=== PATIENT | male | born 1955 | race Caucasian/White ===

== ENCOUNTER 2017-04-23 10:50 | Emergency (ER) | payer OTHER ==
[~2017-04-23] VITALS: Ht 182.9 cm; Wt 77.0 kg
[~2017-04-23 10:50] MED LIST: AUGM875T PO; SPIRCAP INH
[2017-04-23 11:06] VITALS: BP 110/56; PULSE 112; RESP 19; TEMP 97.6; O2SAT 98
[2017-04-23] MEDS ORDERED: SODIUM CHLOR 0.9% 1000 ML INJ 1,000 ML IV SCH ×2 (11:08)
[2017-04-23] MEDS ORDERED: SODIUM CHLORIDE 0.9% FLUSH 5 ML FLUSH IV FLUSH PRN (11:15)
[2017-04-23 11:16] VITALS: BP 110/57; PULSE 112; RESP 19; TEMP 97.6; O2SAT 99
--- NOTE | 2017-04-23 11:17 | PD ---
HPI . Altered mental status Chief Complaint: Altered Mental Status Time Seen by Provider: 11:08 Travel History International Travel<30 days: No Contact w/Intl Traveler<30days: No History of Present Illness HPI This patient is brought to us by [facility] with the chief complaint of altered mental status. Onset was this morning. EMS reports that the patient lives with his mother and that they were called to the home by the mother for altered mental status. The patient's complaints are poor appetite, weakness and feeling lightheaded. He denies any modifying factors. The patient admits to drinking vodka daily. He states that he has had previous alcohol withdrawal seizures. He reports no known history of cirrhosis of liver or esophageal varices. EMS reports that he is currently being evaluated by a neurologist for an unknown neurological symptom. He was reportedly at the neurologist's office this morning and was hypotensive in the 90s. EMS reports hypotension en route to the hospital as well. Mother reports that he has been unable to walk. This has been an ongoing, progressively worsening problem. She states that he needs a wheelchair. [facility] Past Medical History COPD: Yes Seizures: Yes (ETOH Withdraw) Past Surgical History Tonsillectomy: Yes Social History Alcohol Use: Yes (1/5th vodka daily ) Tobacco Use: Yes (1/2 pack daily) Substance Use: No Allergies-Medications (Allergen,Severity, Reaction): Coded Allergies: No Known Allergies (Verified Allergy, Unknown, 04/23/17) Uncoded Allergies: STEROIDS (Allergy, Unknown, 07/13/14) Reported Meds & Prescriptions Reported Meds & Active Scripts Active Lactulose Liq (Lactulose) 10 Gm/15 Ml Soln 30 Ml PO BID Reported Spiriva Handihaler (Tiotropium Inh) 18 Mcg Cap 18 Mcg INH DAILY 1 capsule = 18 mcg Review of Systems Except as stated in HPI: all other systems reviewed are Neg General / Constitutional: No: Fever, Chills HENT: Positive: Lightheadedness Gastrointestinal: Positive: Loss of Appetite Neurologic: Positive: Weakness Psychiatric: Positive: Substance Abuse Physical Exam Narrative GENERAL: Patient is awake and alert and does not appear to be in any distress. Disheveled appearing. He looks older than his stated age of 61. SKIN: warm/dry. No jaundice. No rash. HEAD: Normocephalic. Atraumatic. EYES: Pupils equal and round. No scleral icterus. No injection or drainage. ENT: No nasal bleeding or discharge. Mucous membranes pink and moist. NECK: Trachea midline. Full range of motion without pain.. CARDIOVASCULAR: Sinus tachycardia. No murmurs. RESPIRATORY: No accessory muscle use. Clear to auscultation. Breath sounds equal bilaterally. GASTROINTESTINAL: Abdomen soft. Nontender. Bowel sounds present. Nondistended. No hepatomegaly palpated. No caput medusa. MUSCULOSKELETAL: No obvious deformities. The patient is not ambulatory. We have attempted to walk in without success. NEUROLOGICAL: Awake and alert. No obvious cranial nerve deficits. Motor grossly within normal limits. Normal speech. PSYCHIATRIC: Appropriate mood and affect; insight and judgment normal. Data Data Last Documented VS Vital Signs Date Time Temp Pulse Resp B/P (MAP) Pulse Ox O2 Delivery O2 Flow Rate FiO2 04/23/17 11:16 97.6 112 19 110/57 (74) 99 Room Air Orders Orders Electrocardiogram (04/23/17 11:08) Ammonia (04/23/17 11:08) Complete Blood Count With Diff (04/23/17 11:08) Comprehensive Metabolic Panel (04/23/17 11:08) Creatine Kinase (Cpk) (04/23/17 11:08) Prothrombin Time / Inr (Pt) (04/23/17 11:08) Act Partial Throm Time (Ptt) (04/23/17 11:08) Urinalysis - C+S If Indicated (04/23/17 11:08) Ct Brain W/O Iv Contrast(Rout) (04/23/17 11:08) Blood Glucose (04/23/17 11:08) Ecg Monitoring (04/23/17 11:08) Iv Access Insert/Monitor (04/23/17 11:08) Cath For Specimen (04/23/17 11:08) Oximetry (04/23/17 11:08) Sodium Chloride 0.9% Flush (Ns Flush) (04/23/17 11:15) Sodium Chlor 0.9% 1000 Ml Inj (Ns 1000 M (04/23/17 11:08) Sodium Chlor 0.9% 1000 Ml Inj (Ns 1000 M (04/23/17 11:08) Drug Screen, Random Urine (04/23/17 11:08) Alcohol (Ethanol) (04/23/17 11:08) Urine Culture (04/23/17 11:40) Labs Laboratory Tests Test 04/23/17 11:40 White Blood Count 4.6 TH/MM3 Red Blood Count 3.25 MIL/MM3 Hemoglobin 12.8 GM/DL Hematocrit 38.3 % Mean Corpuscular Volume 118.1 FL Mean Corpuscular Hemoglobin 39.5 PG Mean Corpuscular Hemoglobin Concent 33.5 % Red Cell Distribution Width 21.9 % Platelet Count 69 TH/MM3 Mean Platelet Volume 10.8 FL Neutrophils (%) (Auto) 82.2 % Lymphocytes (%) (Auto) 10.1 % Monocytes (%) (Auto) 5.8 % Eosinophils (%) (Auto) 1.3 % Basophils (%) (Auto) 0.6 % Neutrophils # (Auto) 3.8 TH/MM3 Lymphocytes # (Auto) 0.5 TH/MM3 Monocytes # (Auto) 0.3 TH/MM3 Eosinophils # (Auto) 0.1 TH/MM3 Basophils # (Auto) 0.0 TH/MM3 CBC Comment AUTO DIFF Differential Comment AUTO DIFF CONFIRMED Toxic Granulation 1+ Platelet Estimate LOW Platelet Morphology Comment ENLARGED Ovalocytes 1+ Prothrombin Time 12.5 SEC Prothromb Time International Ratio 1.1 RATIO Activated Partial Thromboplast Time 26.4 SEC Urine Color YURI Urine Turbidity HAZY Urine pH 6.0 Urine Specific [place] 1.027 Urine Protein 30 mg/dL Urine Glucose (UA) NEG mg/dL Urine Ketones 40 mg/dL Urine Occult Blood NEG Urine Nitrite NEG Urine Bilirubin NEG Urine Urobilinogen GREATER THAN 12.0 MG/DL Urine Leukocyte Esterase NEG Urine RBC LESS THAN 1 /hpf Urine WBC 3 /hpf Urine Bacteria OCC /hpf Urine Hyaline Casts 3 /lpf Urine Mucus FEW /lpf Microscopic Urinalysis Comment CATH-CULTURE IND Blood Urea Nitrogen 34 MG/DL Creatinine 1.27 MG/DL Random Glucose 129 MG/DL Total Protein 6.6 GM/DL Albumin 2.8 GM/DL Calcium Level 9.6 MG/DL Alkaline Phosphatase 108 U/L Aspartate Amino Transf (AST/SGOT) 55 U/L Alanine Aminotransferase (ALT/SGPT) 24 U/L Total Bilirubin 1.4 MG/DL Sodium Level 134 MEQ/L Potassium Level 3.0 MEQ/L Chloride Level 97 MEQ/L Carbon Dioxide Level 23.3 MEQ/L Anion Gap 14 MEQ/L Estimat Glomerular Filtration Rate 58 ML/MIN Ammonia 42 MCMOL/L Total Creatine Kinase 11 U/L Ethyl Alcohol Level LESS THAN 3 MG/DL MDM Medical Decision Making Medical Screen Exam Complete: Yes Emergency Medical Condition: Yes Medical Record Reviewed: Yes (this patient was seen here in July with virtually the same symptoms. His symptoms were attributed to chronic alcohol abuse.) Interpretation(s) EKG shows a sinus tachycardia at 117. He has some diffuse ST segment depression which is <1 mm and which is unchanged from previous. Differential Diagnosis Differential diagnosis of altered mental status includes but is not limited to infection, electrolyte abnormality, neurological event, intoxication Narrative Course This patient presents to us from home with the chief complaint of altered mental status. He is an admitted alcoholic. CT of his head is pending to rule out SDH. Blood work is pending to rule out anemia, hyponatremia, hepatic encephalopathy, transaminitis. CBC & BMP Diagram 04/23/17 11:40 Total Protein 6.6, Albumin 2.8 L, Calcium Level 9.6, Alkaline Phosphatase 108, Aspartate Amino Transf (AST/SGOT) 55 H, Alanine Aminotransferase (ALT/SGPT) 24, Total Bilirubin 1.4 H Coags are negative. Urine is not infected. Ammonia is 42. Alcohol level is negative. Last Impressions Head CT 04/23/17 1108 Signed Impressions: Service Date/Time: Sunday, April 23, 2017 11:47 - CONCLUSION: Negative for acute process. Patricio Kumar MD FACR This patient's heart rate and blood pressure have normalized. I plan to discharge him once fluids are completed. Diagnosis Primary Impression: Chronic alcoholism Additional Impressions: Hepatic encephalopathy Weakness Patient Instructions: General Instructions, Hepatic Encephalopathy (DC) Additional Instructions: Lots of nonalcoholic fluids. Lactulose as directed. Follow-up with your doctor next week for recheck. Med/Other Pt SpecificInfo: Prescription(s) given Scripts Lactulose Liq (Lactulose Liq) 10 Gm/15 Ml Soln 30 ML PO BID, #1800 ML 0 Refills Prov: Marlene Foley MD 04/23/17 Disposition: 01 DISCHARGE HOME Condition: Stable Marlene Foley MD Apr 23, 2017 11:16
[2017-04-23 12:01] LABS: AUTOMATED NEUTROPHIL # 3.8 TH/MM3 (1.8-7.7); BASOPHIL % 0.6 % (0.0-2.0); EOSINOPHIL # 0.1 TH/MM3 (0-0.4); EOSINOPHIL % 1.3 % (0.0-4.0); HEMATOCRIT 38.3 % (39.0-51.0); LYMPH % 10.1 % (9.0-44.0); LYMPHOCYTE # 0.5 TH/MM3 (1.0-4.8); MEAN CELL VOLUME 118.1 FL (80.0-100.0); MEAN CORPUSCULAR HEMOGLOBIN 39.5 PG (27.0-34.0); MEAN CORPUSCULAR HGB CONC 33.5 % (32.0-36.0); MONO % 5.8 % (0.0-8.0); NEUT % 82.2 % (16.0-70.0); PLATELET COUNT 69 TH/MM3 (150-450); RED BLOOD COUNT 3.25 MIL/MM3 (4.50-5.90); RED CELL DISTRIBUTION WIDTH 21.9 % (11.6-17.2); WHITE BLOOD COUNT 4.6 TH/MM3 (4.0-11.0)
--- NOTE | 2017-04-23 12:03 | RADRPT ---
EXAM DATE/TIME: 04/23/2017 11:47 [facility] COMPARISON: CT BRAIN W/O CONTRAST, July 19, 2016, 13:33. INDICATIONS : Altered mental status today. RADIATION DOSE: 35.17 CTDIvol (mGy) MEDICAL HISTORY : Seizures. Chronic obstructive pulmonary disease. SURGICAL HISTORY : None. ENCOUNTER: Initial ACUITY: 1 day PAIN SCALE: Non-responsive LOCATION: Bilateral head TECHNIQUE: Multiple contiguous axial images were obtained of the head. Using automated exposure control and adj ustment of the mA and/or kV according to patient size, radiation dose was kept as low as reasonably a chievable to obtain optimal diagnostic quality images. DICOM format image data is available electro nically for review and comparison. FINDINGS: CEREBRUM: The ventricles are normal for age. No evidence of midline shift, mass lesion, hemorrhage or acute in farction. No extra-axial fluid collections are seen. POSTERIOR FOSSA: The cerebellum and brainstem are intact. The 4th ventricle is midline. The cerebellopontine angle i s unremarkable. EXTRACRANIAL: The visualized portion of the orbits is intact. SKULL: The calvaria is intact. No evidence of skull fracture. CONCLUSION: Negative for acute process. Patricio Kumar MD FACR on April 23, 2017 at 12:00 Board Certified Radiologist. This report was verified electronically.
[2017-04-23 12:05] LABS: HEMO FLAGS AUTO DIFF
[2017-04-23 12:07] LABS: BACTERIA, URINE OCC /hpf; BLOOD, URINE NEG (NEG); GLUCOSE,URINE NEG (NEG); HYALINE CAST, URINE 3 /lpf (RARE); KETONE, URINE 40 mg/dL (NEG); MUCUS URINE FEW /lpf (OCC); NITRITE,URINE NEG (NEG)
[2017-04-23 12:08] LABS: URINE COLOR AMBER (YELLW/STRAW)
[2017-04-23 12:09] LABS: APTT (PATIENT) 26.4 SEC (24.3-30.1); COMMENT (UR) CATH-CULTURE IND; CULTURE IF INDICATED CATH CULTURE IND; INTERNATIONAL NORMALIZED RATIO 1.1 RATIO; PROTHROMBIN TIME - PATIENT 12.5 SEC (9.8-11.6)
[2017-04-23 12:18] LABS: ANION GAP 14 MEQ/L (5-15); AST (GOT) 55 U/L (15-37); BICARBONATE 23.3 MEQ/L (21.0-32.0); BLOOD UREA NITROGEN 34 MG/DL (7-18); CHLORIDE 97 MEQ/L (98-107); GLOMERULAR FILTRATION RATE 58 ML/MIN (>89); SODIUM (NA) 134 MEQ/L (136-145)
[2017-04-23 12:20] LABS: ALKALINE PHOSPHATASE 108 U/L (45-117); ALT (GPT) 24 U/L (12-78); TOTAL BILIRUBIN ADULT 1.4 MG/DL (0.2-1.0)
[2017-04-23 12:25] LABS: ALCOHOL LESS THAN 3 MG/DL (0-5); CREATINE KINASE 11 U/L (39-308)
[2017-04-23 12:48] LABS: OVALOCYTES 1+ (NORMAL); PLATELET ESTIMATE SMEAR LOW (NORMAL); PLATELET MORPHOLOGY ENLARGED (NORMAL); SCAN/DIFF AUTO DIFF CONFIRMED; TOXIC GRANULATION 1+ (NORMAL)
[2017-04-23] MEDS ORDERED: LACT10SO PO (13:22)
--- NOTE | 2017-04-23 14:12 | EKG ---
Date Performed: 04/23/2017 Time Performed: 11:06:58 PTAGE: 61 years EKG: SINUS TACHYCARDIA LOW QRS VOLTAGE IN EXTREMITY LEADS ANTEROLATERAL ST/T CHANGES, CONSIDER I SCHEMIA INFERIOR MYOCARDIAL INFARCTION ABNORMAL ECG PREVIOUS TRACING : 07/19/2016 12.44 No significant change from previous tracing noted. DOCTOR: Wellington Scherer Interpretating Date/Time 04/23/2017 14:10:40
[2017-04-23] MEDS ORDERED: WHEEMIS3 (15:39)
[2017-04-23 16:58] VITALS: BP 120/86
== END 2017-04-23 18:51 | disposition home or self-care (01) ==
LOC: NEPC 10:50
DX: K72.90 Hepatic failure, unspecified without coma (principal); F10.20 Alcohol dependence, uncomplicated; F17.200 Nicotine dependence, unspecified, uncomplicated; J44.9 Chronic obstructive pulmonary disease, unspecified; I95.9 Hypotension, unspecified; R94.31 Abnormal electrocardiogram [ECG] [EKG]
CPT/HCPCS: 70450; 80053; 80307; 81001; 82140; 82550; 85025; 85610; 85730; 87086; 93005; 96360; 99285; J7030; P9612

== ENCOUNTER 2017-04-27 09:30 | Inpatient (IN) | payer OTHER, MEDICARE ==
[~2017-04-27] VITALS: Ht 182.9 cm; Wt 75.7 kg
[2017-04-27] VITALS (13 sets, daily range): BP systolic 64–101; BP diastolic 49–74; PULSE 71–106; RESP 14–28; TEMP 97.4–98.4; O2SAT 98–100
[~2017-04-27 09:30] MED LIST changes: -AUGM875T PO; +LACT10SO PO; +WHEEMIS3
[2017-04-27] MEDS ORDERED: IOHEXOL 350 MG/ML 10 ML VIAL (for RAD DIAG) IVCONTRAST ONE (09:31)
[2017-04-27] MEDS ORDERED: GABA300C5 PO (09:46)
[2017-04-27] MEDS ORDERED: SODIUM CHLORIDE 0.9% FLUSH 10 ML FLUSH IVF PRN (10:00)
--- NOTE | 2017-04-27 10:23 | PD ---
HPI Chief Complaint: General Weakness Time Seen by Provider: 10:17 Travel History International Travel<30 days: No Contact w/Intl Traveler<30days: No Traveled to known affect area: No History of Present Illness HPI 61-year-old male with history of hepatic encephalopathy seen last week, alcohol abuse, presents to the ER today for several days history of increased weakness, dizziness, inability to get up according to . He states he was trying to get up and fell today. Denies any injuries. He denies any fevers, vomiting, diarrhea, or any other symptoms. He apparently had been on medications for his but states he ran out of meds. Modifying Factors: None Associated Signs & Symptoms: General weakness, dizziness, trouble getting up and caring for self, fall Risk Factors: Hepatic encephalopathy last week, alcohol abuse PFSH Past Medical History COPD: Yes Respiratory: Yes Seizures: Yes (ETOH Withdraw) Past Surgical History Tonsillectomy: Yes Social History Alcohol Use: Yes (08/10 vodka daily ) Tobacco Use: Yes (1/2 pack daily) Substance Use: No Allergies-Medications (Allergen,Severity, Reaction): Coded Allergies: No Known Allergies (Verified Allergy, Unknown, 04/27/17) Uncoded Allergies: STEROIDS (Allergy, Unknown, 07/13/14) Reported Meds & Prescriptions Reported Meds & Active Scripts Active Wheelchair (Device) 1 Mis Mis Ea .XX DIRECTED Lactulose Liq (Lactulose) 10 Gm/15 Ml Soln 30 Ml PO BID Reported Gabapentin 300 Mg Cap 300 Mg PO TID Spiriva Handihaler (Tiotropium Inh) 18 Mcg Cap 18 Mcg INH DAILY 1 capsule = 18 mcg Review of Systems Except as stated in HPI: all other systems reviewed are Neg Physical Exam Narrative GENERAL: Well-developed elderly white male patient who is in moderate distress. Awake, mildly lethargic, oriented 3. SKIN: Focused skin assessment warm/dry. HEAD: Atraumatic. Normocephalic. EYES: Pupils equal and round. No scleral icterus. No injection or drainage. ENT: No nasal bleeding or discharge. Mucous membranes pink and moist. NECK: Trachea midline. No JVD. CARDIOVASCULAR: Regular rate and rhythm. No murmur appreciated. RESPIRATORY: No accessory muscle use. Clear to auscultation. Breath sounds equal bilaterally. GASTROINTESTINAL: Abdomen soft, obese, non-tender, nondistended. Hepatic and splenic margins not palpable. MUSCULOSKELETAL: No obvious deformities. No clubbing. No cyanosis. No edema. NEUROLOGICAL: Awake and lethargic. No obvious cranial nerve deficits. Motor grossly within normal limits. Normal speech. PSYCHIATRIC: Appropriate mood and affect; insight and judgment poor. Data Data Last Documented VS Vital Signs Date Time Temp Pulse Resp B/P (MAP) Pulse Ox O2 Delivery O2 Flow Rate FiO2 04/27/17 10:04 100 Room Air 04/27/17 09:35 97.9 106 14 88/58 (68) Orders Orders Electrocardiogram (04/27/17 10:00) Complete Blood Count With Diff (04/27/17 10:00) Comprehensive Metabolic Panel (04/27/17 10:00) Magnesium (Mg) (04/27/17 10:00) Ckmb (Isoenzyme) Profile (04/27/17 10:00) Troponin I (04/27/17 10:00) Act Partial Throm Time (Ptt) (04/27/17 10:00) Prothrombin Time / Inr (Pt) (04/27/17 10:00) Urinalysis - C+S If Indicated (04/27/17 10:00) Chest, Single Ap (04/27/17 10:00) Ecg Monitoring (04/27/17 10:00) Iv Access Insert/Monitor (04/27/17 10:00) Oximetry (04/27/17 10:00) Sodium Chloride 0.9% Flush (Ns Flush) (04/27/17 10:00) Ct Brain W/O Iv Contrast(Rout) (04/27/17 10:17) Potassium Chloride (Kcl) (04/27/17 11:45) Urine Culture (04/27/17 11:25) Lactic Acid Sepsis Protocol (04/27/17 11:48) Blood Culture (04/27/17 11:48) Blood Glucose (04/27/17 11:48) Oxygen Administration (04/27/17 11:48) Piperacil-Tazo 4.5 Gm Premix (Zosyn 4.5 (04/27/17 11:48) Magnesium Sulfate 1 Gm Premix (Magnesium (04/27/17 12:00) Comprehensive Metabolic Panel (04/28/17 06:00) Free Thyroxine (T4) (04/28/17 06:00) Hemoglobin (Hgb) A1c (04/28/17 06:00) Magnesium (Mg) (04/28/17 06:00) Phosphorus (Po4) (04/28/17 06:00) Thyroid Stimulating Hormone (04/28/17 06:00) Complete Blood Count With Diff (04/28/17 06:00) Prothrombin Time / Inr (Pt) (04/28/17 06:00) Ammonia (04/28/17 06:00) Amylase (04/28/17 06:00) Lipase (04/28/17 06:00) Labs Laboratory Tests Test 04/27/17 10:05 04/27/17 11:25 04/27/17 11:55 White Blood Count 2.7 TH/MM3 Red Blood Count 2.95 MIL/MM3 Hemoglobin 11.5 GM/DL Hematocrit 34.6 % Mean Corpuscular Volume 117.2 FL Mean Corpuscular Hemoglobin 38.9 PG Mean Corpuscular Hemoglobin Concent 33.2 % Red Cell Distribution Width 22.5 % Platelet Count 44 TH/MM3 Mean Platelet Volume 10.6 FL Neutrophils (%) (Auto) 80.7 % Lymphocytes (%) (Auto) 14.0 % Monocytes (%) (Auto) 4.2 % Eosinophils (%) (Auto) 0.9 % Basophils (%) (Auto) 0.2 % Neutrophils # (Auto) 2.2 TH/MM3 Lymphocytes # (Auto) 0.4 TH/MM3 Monocytes # (Auto) 0.1 TH/MM3 Eosinophils # (Auto) 0.0 TH/MM3 Basophils # (Auto) 0.0 TH/MM3 CBC Comment AUTO DIFF Differential Comment AUTO DIFF CONFIRMED Platelet Estimate LOW Platelet Morphology Comment NORMAL Ovalocytes 1+ Prothrombin Time 12.4 SEC Prothromb Time International Ratio 1.1 RATIO Activated Partial Thromboplast Time 26.4 SEC Blood Urea Nitrogen 25 MG/DL Creatinine 1.18 MG/DL Random Glucose 132 MG/DL Total Protein 5.7 GM/DL Albumin 2.4 GM/DL Calcium Level 7.7 MG/DL Magnesium Level 1.4 MG/DL Alkaline Phosphatase 91 U/L Aspartate Amino Transf (AST/SGOT) 64 U/L Alanine Aminotransferase (ALT/SGPT) 28 U/L Total Bilirubin 0.8 MG/DL Sodium Level 135 MEQ/L Potassium Level 2.8 MEQ/L Chloride Level 99 MEQ/L Carbon Dioxide Level 19.3 MEQ/L Anion Gap 17 MEQ/L Estimat Glomerular Filtration Rate 63 ML/MIN Total Creatine Kinase 28 U/L Troponin I LESS THAN 0.02 NG/ML Urine Color ORANGE Urine Turbidity HAZY Urine pH 6.0 Urine Specific [place] 1.021 Urine Protein 30 mg/dL Urine Glucose (UA) NEG mg/dL Urine Ketones NEG mg/dL Urine Occult Blood TRACE Urine Nitrite POS Urine Bilirubin NEG Urine Urobilinogen 8.0 MG/DL Urine Leukocyte Esterase NEG Urine RBC 5 /hpf Urine WBC 25 /hpf Urine Squamous Epithelial Cells <1 /hpf Urine Bacteria MOD /hpf Urine Hyaline Casts 6 /lpf Urine Mucus FEW /lpf Microscopic Urinalysis Comment CULTURE INDICATED MDM Medical Decision Making Medical Screen Exam Complete: Yes Emergency Medical Condition: Yes Medical Record Reviewed: Yes Interpretation(s) Laboratory Tests Test 04/27/17 10:05 04/27/17 11:25 04/27/17 11:55 White Blood Count 2.7 TH/MM3 (4.0-11.0) Red Blood Count 2.95 MIL/MM3 (4.50-5.90) Hemoglobin 11.5 GM/DL (13.0-17.0) Hematocrit 34.6 % (39.0-51.0) Mean Corpuscular Volume 117.2 FL (80.0-100.0) Mean Corpuscular Hemoglobin 38.9 PG (27.0-34.0) Red Cell Distribution Width 22.5 % (11.6-17.2) Platelet Count 44 TH/MM3 (150-450) Neutrophils (%) (Auto) 80.7 % (16.0-70.0) Lymphocytes # (Auto) 0.4 TH/MM3 (1.0-4.8) Platelet Estimate LOW (NORMAL) Ovalocytes 1+ (NORMAL) Prothrombin Time 12.4 SEC (9.8-11.6) Blood Urea Nitrogen 25 MG/DL (7-18) Random Glucose 132 MG/DL (74-106) Total Protein 5.7 GM/DL (6.4-8.2) Albumin 2.4 GM/DL (3.4-5.0) Calcium Level 7.7 MG/DL (8.5-10.1) Magnesium Level 1.4 MG/DL (1.5-2.5) Aspartate Amino Transf (AST/SGOT) 64 U/L (15-37) Sodium Level 135 MEQ/L (136-145) Potassium Level 2.8 MEQ/L (3.5-5.1) Carbon Dioxide Level 19.3 MEQ/L (21.0-32.0) Anion Gap 17 MEQ/L (5-15) Estimat Glomerular Filtration Rate 63 ML/MIN (>89) Total Creatine Kinase 28 U/L (39-308) Troponin I LESS THAN 0.02 NG/ML Urine Color ORANGE (YELLW/STRAW) Urine Turbidity HAZY (CLEAR) Urine Protein 30 mg/dL (NEG-TRACE) Urine Occult Blood TRACE (NEG) Urine Nitrite POS (NEG) Urine Urobilinogen 8.0 MG/DL (LESS THAN Urine RBC 5 /hpf (0-3) Urine WBC 25 /hpf (0-5) Urine Bacteria MOD /hpf (NONE) Urine Mucus FEW /lpf (OCC) Last [address] 04/27/17 1017 Signed Impressions: Service Date/Time: Thursday, April 27, 2017 11:00 - CONCLUSION: 1. No acute intracranial abnormality. 2. Complete opacification left maxillary sinus. Keagan Shipman MD Chest X-Ray 04/27/17 1000 Signed Impressions: Service Date/Time: Thursday, April 27, 2017 10:30 - CONCLUSION: Overall stable chest Deangelo Lobato MD Differential Diagnosis Hepatic encephalopathy versus metabolic issues versus dehydration versus sepsis Narrative Course CT of the brain is negative. Lab work shows significant hypokalemia and hypomagnesemia. His blood pressures low and the ER and IV fluids as well as mag and potassium was given. At this point, my plan would be to admit the patient for further treatment. Case was discussed with Dr. Watkins for admission. Lab work also shows significant UTI and IV antibiotics were given after cultures were drawn. Diagnosis Primary Impression: Hypokalemia Additional Impressions: Hypomagnesemia Chronic alcoholism UTI (urinary tract infection) Dizziness Admitting Information Admitting Physician Requests: Admit Pippa Sharp MD Apr 27, 2017 10:23
[2017-04-27 10:30] LABS: AUTOMATED NEUTROPHIL # 2.2 TH/MM3 (1.8-7.7); BASOPHIL % 0.2 % (0.0-2.0); EOSINOPHIL % 0.9 % (0.0-4.0); HEMATOCRIT 34.6 % (39.0-51.0); LYMPHOCYTE # 0.4 TH/MM3 (1.0-4.8); MEAN CELL VOLUME 117.2 FL (80.0-100.0); MEAN CORPUSCULAR HEMOGLOBIN 38.9 PG (27.0-34.0); MEAN CORPUSCULAR HGB CONC 33.2 % (32.0-36.0); MONO % 4.2 % (0.0-8.0); NEUT % 80.7 % (16.0-70.0); PLATELET COUNT 44 TH/MM3 (150-450); RED BLOOD COUNT 2.95 MIL/MM3 (4.50-5.90); RED CELL DISTRIBUTION WIDTH 22.5 % (11.6-17.2); WHITE BLOOD COUNT 2.7 TH/MM3 (4.0-11.0)
[2017-04-27 10:34] LABS: HEMO FLAGS AUTO DIFF
--- NOTE | 2017-04-27 10:35 | RADRPT ---
EXAM DATE/TIME: 04/27/2017 10:30 [facility] COMPARISON: CHEST SINGLE AP, July 19, 2016, 13:11. INDICATIONS : Palpitations, short of breath, weakness MEDICAL HISTORY : Chronic obstructive pulmonary disease. altered mental status SURGICAL HISTORY : None. ENCOUNTER: Initial ACUITY: 3 days PAIN SCORE: Non-responsive. LOCATION: Bilateral chest FINDINGS: There is persistent hypoaeration with slight asymmetric elevation the right hemidiaphragm. Prominent bronchovascular markings noted in the retrocardiac region portion of which may be secondary to hiatal hernia and some compressive atelectasis or scarring in the left base as well as some prominent bronc hovascular markings in the right medial base. CONCLUSION: Overall stable chest Deangelo Lobato MD on April 27, 2017 at 10:33 Board Certified Radiologist. This report was verified electronically.
[2017-04-27 10:38] LABS: APTT (PATIENT) 26.4 SEC (24.3-30.1); INTERNATIONAL NORMALIZED RATIO 1.1 RATIO; PROTHROMBIN TIME - PATIENT 12.4 SEC (9.8-11.6)
[2017-04-27 11:22] LABS: ALKALINE PHOSPHATASE 91 U/L (45-117); ALT (GPT) 28 U/L (12-78); ANION GAP 17 MEQ/L (5-15); AST (GOT) 64 U/L (15-37); BICARBONATE 19.3 MEQ/L (21.0-32.0); BLOOD UREA NITROGEN 25 MG/DL (7-18); CHLORIDE 99 MEQ/L (98-107); GLOMERULAR FILTRATION RATE 63 ML/MIN (>89); MAGNESIUM 1.4 MG/DL (1.5-2.5); SODIUM (NA) 135 MEQ/L (136-145); TOTAL BILIRUBIN ADULT 0.8 MG/DL (0.2-1.0)
[2017-04-27 11:23] LABS: OVALOCYTES 1+ (NORMAL); PLATELET ESTIMATE SMEAR LOW (NORMAL); PLATELET MORPHOLOGY NORMAL (NORMAL); SCAN/DIFF AUTO DIFF CONFIRMED
[2017-04-27 11:27] LABS: CREATINE KINASE 28 U/L (39-308)
--- NOTE | 2017-04-27 11:28 | RADRPT ---
EXAM DATE/TIME: 04/27/2017 11:00 [facility] COMPARISON: CT BRAIN W/O CONTRAST, April 23, 2017, 11:47. INDICATIONS : Generalized weakness, dizziness, altered mental status. RADIATION DOSE: 56.35 CTDIvol (mGy) MEDICAL HISTORY : Seizures. SURGICAL HISTORY : None. ENCOUNTER: Initial ACUITY: 2 weeks PAIN SCALE: 0/10 LOCATION: cranial TECHNIQUE: Multiple contiguous axial images were obtained of the head. Using automated exposure control and adj ustment of the mA and/or kV according to patient size, radiation dose was kept as low as reasonably a chievable to obtain optimal diagnostic quality images. DICOM format image data is available electro nically for review and comparison. FINDINGS: CEREBRUM: The ventricles are normal for age. No evidence of midline shift, mass lesion, hemorrhage or acute in farction. No extra-axial fluid collections are seen. POSTERIOR FOSSA: The cerebellum and brainstem are intact. The 4th ventricle is midline. The cerebellopontine angle i s unremarkable. EXTRACRANIAL: The visualized portion of the orbits is intact. Opacification left maxillary sinus. SKULL: The calvaria is intact. No evidence of skull fracture. CONCLUSION: 1. No acute intracranial abnormality. 2. Complete opacification left maxillary sinus. Keagan Shipman MD on April 27, 2017 at 11:25 Board Certified Radiologist. This report was verified electronically.
[2017-04-27 11:30] LABS: POTASSIUM 2.8 MEQ/L (3.5-5.1)
[2017-04-27 11:39] LABS: BACTERIA, URINE MOD /hpf; BLOOD, URINE TRACE (NEG); COMMENT (UR) CULTURE INDICATED; CULTURE IF INDICATED CULTURE INDICATED; GLUCOSE,URINE NEG (NEG); HYALINE CAST, URINE 6 /lpf (RARE); KETONE, URINE NEG (NEG); MUCUS URINE FEW /lpf (OCC); NITRITE,URINE POS (NEG); SQUAMOUS EPITHELIAL CELL URINE <1 /hpf (0-5)
[2017-04-27 11:41] LABS: URINE COLOR ORANGE (YELLW/STRAW)
[2017-04-27] MEDS ORDERED: POTASSIUM CHLORIDE 20 MEQ CONTROLLED RELEASE TAB PO ONE (11:45)
[2017-04-27] MEDS ORDERED: PIPERACIL-TAZO 4.5 GM PREMIX 100 ML IV STA (11:48)
[2017-04-27] MEDS ORDERED: MAGNESIUM SULFATE 1 GM PREMIX 100 ML IV ONE ×2 (12:00→15:00)
[2017-04-27] MEDS ORDERED: SODIUM CHLORIDE 0.9% FLUSH 10 ML FLUSH IV FLUSH PRN ×2 (12:30)
[2017-04-27] MEDS ORDERED: MORPHINE SULFATE 4 MG/ML INJ IV PUSH PRN ×2 (12:30)
[2017-04-27] MEDS ORDERED: SENNOSIDES 8.6 MG TAB PO PRN (12:30)
[2017-04-27] MEDS ORDERED: BISACODYL 10 MG SUPP RECTAL PRN (12:30)
[2017-04-27] MEDS ORDERED: NALOXONE HCL 0.4 MG/ML AMP IV PUSH PRN (12:30)
[2017-04-27] MEDS ORDERED: cloNIDine HCL 0.1 MG TAB PO PRN (12:30)
[2017-04-27] MEDS ORDERED: ACETAMINOPHEN 325 MG TAB PO PRN (12:30)
[2017-04-27] MEDS ORDERED: MAGNESIUM HYDROXIDE SUSP 30 ML CUP PO PRN (12:30)
[2017-04-27] MEDS ORDERED: PROCHLORPERAZINE 25 MG SUPP RECTAL PRN (12:30)
[2017-04-27] MEDS ORDERED: ONDANSETRON HCL 4 MG/2 ML VIAL IVP PRN (12:30)
[2017-04-27] MEDS ORDERED: LACTULOSE SYRUP 20 GM/30 ML CUP PO PRN (12:30)
[2017-04-27] MEDS ORDERED: traMADol HCL 50 MG TAB PO PRN ×2 (12:30)
[2017-04-27] MEDS ORDERED: RESP: ALBUTEROL 2.5 MG/IPRATROPIUM 0.5 MG NEB (PRN) NEB (12:45)
[2017-04-27] MEDS ORDERED: LACTULOSE SYRUP 20 GM/30 ML CUP PO SCH (13:30)
[2017-04-27] MEDS ORDERED: THIAMINE HCL 100 MG TAB PO SCH (14:00)
[2017-04-27] MEDS: LACTULOSE SYRUP 20 GM/30 ML CUP PO SCH (14:00)
[2017-04-27] MEDS ORDERED: MULTIVITAMINS/MINERALS THERAPEUTIC TAB PO SCH (14:00)
[2017-04-27] MEDS ORDERED: FOLIC ACID 1 MG TAB PO SCH (14:00)
[2017-04-27] MEDS ORDERED: NICOTINE 14 MG/24 HR PATCH T-DERMAL ONE (14:00)
[2017-04-27 14:09] LABS: LACTIC ACID GHOST NOT REPORTABLE
[2017-04-27] MEDS: PANTOPRAZOLE SOD 40 MG DELAYED RELEASE TAB PO SCH (14:10)
[2017-04-27] MEDS: GABAPENTIN 300 MG CAP PO SCH ×2 (14:10→18:59)
[2017-04-27] MEDS ORDERED: Vancomycin Consult Pharmacy 1 EA OTHER SCH (14:15)
--- NOTE | 2017-04-27 14:15 | HHI.HP ---
[facility] Service [facility] Primary Care Physician No Primary Care Physician Admission Diagnosis general weakness/hypokalemia/hypomagnesemia Diagnoses: (1) Tobacco abuse Diagnosis: Secondary (2) Alcohol abuse Diagnosis: Principal (3) Sepsis Diagnosis: Principal (4) Hypokalemia Diagnosis: Secondary (5) Hypomagnesemia Diagnosis: Secondary (6) UTI (urinary tract infection) Diagnosis: Principal (7) Chronic alcoholism Diagnosis: Principal (8) Dizziness Diagnosis: Secondary Travel History International Travel<30 Days: No Contact w/Intl Traveler <30 Da: No Traveled to Known Affected Are: No Sepsis Criteria SIRS Criteria (2 or more): Heart rate over 90 Sepsis Criteria (SIRS+source): Infect source susp/known (UTI) Severe Sepsis (+one): Lactate >2 Septic Shock Criteria: Lactic acid >=4 History of Present Illness 61-year-old male with history of hepatic encephalopathy seen last week IN THE ER ONLY ,WITH HISTORY OF alcohol abuse,AND TOBACCO ABUSE presents to the ER today for several days history of increased weakness, dizziness, inability to get up according to . He states he was trying to get up and fell today. Denies any injuries. He denies any fevers, vomiting, diarrhea, or any other symptoms. He apparently had been on medications for THIS BUT states he ran out of meds. Modifying Factors: None Associated Signs & Symptoms: General weakness, dizziness, trouble getting up and caring for self, fall Risk Factors: Hepatic encephalopathy last week, alcohol abuse Review of Systems Constitutional: COMPLAINS OF: Fatigue, Dizziness, Change in appetite, DENIES: Diaphoretic episodes, Fever, Weight gain, Weight loss, Chills Endocrine: DENIES: Heat/cold intolerance, Polydipsia, Polyuria, Polyphagia Eyes: DENIES: Blurred vision, Diplopia, Eye inflammation, Eye pain, Vision loss , Photosensitivity Ears, nose, mouth, throat: DENIES: Tinnitus, Hearing loss, Vertigo, Nasal discharge Respiratory: DENIES: Apneas, Cough, Snoring, Wheezing, Hemoptysis Cardiovascular: COMPLAINS OF: Syncope, DENIES: Chest pain, Palpitations, Dyspnea on Exertion, PND Gastrointestinal: DENIES: Abdominal pain, Black stools, Bloody stools, Constipation Genitourinary: DENIES: Sexual dysfunction, Urinary frequency Musculoskeletal: DENIES: Joint pain, Muscle aches, Stiffness, Joint Swelling Integumentary: DENIES: Abnormal pigmentation, Nail changes Hematologic/lymphatic: DENIES: Bruising Immunologic/allergic: DENIES: Eczema, Urticaria Neurologic: COMPLAINS OF: Abnormal gait, Localized weakness, Poor Balance, DENIES: Headache, Paresthesias, Seizures, Speech Problems Psychiatric: COMPLAINS OF: Confusion, Agitation, DENIES: Anxiety, Mood changes , Depression, Hallucinations, Suicidal Ideation, Homicidal Ideation, Delusions Past Family Social History Past Medical History COPD and tobacco abuse Alcohol abuse History of alcohol withdrawal seizures Past Surgical History Tonsillectomy Reported Medications Reported Meds & Active Scripts Active Wheelchair (Device) 1 Mis Mis Ea .XX DIRECTED Lactulose Liq (Lactulose) 10 Gm/15 Ml Soln 30 Ml PO BID Reported Gabapentin 300 Mg Cap 300 Mg PO TID Spiriva Handihaler (Tiotropium Inh) 18 Mcg Cap 18 Mcg INH DAILY 1 capsule = 18 mcg Allergies: Coded Allergies: No Known Allergies (Verified Allergy, Unknown, 04/27/17) Uncoded Allergies: STEROIDS (Allergy, Unknown, 07/13/14) Active Ordered Medications Current Medications Sodium Chloride (NS Flush) 2 ml UNSCH PRN IVF FLUSH AFTER USING IV ACCESS; Start 04/27/17 at 10:00 Iohexol (Omnipaque 350 Inj) 88 ml STK-MED ONCE IVCONTRAST ; Start 04/27/17 at 09 :31; Stop 04/27/17 at 09:32; Status Cancel Potassium Chloride (KCl) 40 meq ONCE ONCE PO Last administered on 04/27/17 11 :45; Start 04/27/17 at 11:45; Stop 04/27/17 at 11:46; Status DC Piperacillin Sod/ Tazobactam Sod 100 ml @ 200 mls/hr ONCE STAT IV Last administered on 04/27/17 12:06; Start 04/27/17 at 11:48; Stop 04/27/17 at 12:17 ; Status DC Magnesium Sulfate/ Dextrose 100 ml @ 100 mls/hr ONCE ONCE IV Last administered on 04/27/17 12:57; Start 04/27/17 at 12:00; Stop 04/27/17 at 12:59 ; Status DC Gabapentin (Neurontin) 300 mg TID PO ; Start 04/27/17 at 13:00 Lactulose (Lactulose Liq) 30 ml BID PO ; Start 04/27/17 at 13:30; Status Cancel Tiotropium [place] (Spiriva Inh) 18 mcg DAILY INH ; Start 04/28/17 at 09:00 Sodium Chloride (NS Flush) 2 ml UNSCH PRN IV FLUSH FLUSH AFTER USING IV ACCESS ; Start 04/27/17 at 12:30; Status UNV Sodium Chloride (NS Flush) 2 ml BID IV FLUSH ; Start 04/27/17 at 21:00 Acetaminophen (Tylenol) 650 mg Q4H PRN PO TEMP > 100.4; Start 04/27/17 at 12:30 Ondansetron HCl (Zofran Inj) 4 mg Q6H PRN IVP NAUSEA OR VOMITING; Start at 12:30 Prochlorperazine (Compazine Supp) 25 mg Q12H PRN RECTAL NAUSEA OR VOMITING; Start 04/27/17 at 12:30 Acetaminophen (Tylenol) 650 mg Q6H PRN PO PAIN SCALE 1 TO 2; Start 04/27/17 at 12:30 Morphine Sulfate (Morphine Inj) 2 mg Q3H PRN IV PUSH Pain 3-5; if unable to take PO; Start 04/27/17 at 12:30 Morphine Sulfate (Morphine Inj) 4 mg Q3H PRN IV PUSH Pain 6-10;if unable to take PO; Start 04/27/17 at 12:30 Tramadol HCl (Ultram) 50 mg Q4H PRN PO PAIN SCALE 3 TO 5; Start 04/27/17 at 12: 30 Tramadol HCl (Ultram) 100 mg Q4H PRN PO PAIN SCALE 6 TO 10; Start 04/27/17 at 12:30 Naloxone HCl (Narcan Inj) 0.4 mg UNSCH PRN IV PUSH SEE LABEL COMMENTS; Start at 12:30 Senna/Docusate Sodium (Beena-Colace) 1 tab BID PO ; Start 04/27/17 at 21:00 Magnesium Hydroxide (Milk Of Magnesia Liq) 30 ml Q12H PRN PO MILD - MODERATE CONSTIPATION; Start 04/27/17 at 12:30 Sennosides (Senokot) 17.2 mg Q12H PRN PO MODERATE - SEVERE CONSTIPATION; Start 04/27/17 at 12:30 Bisacodyl (Dulcolax Supp) 10 mg DAILY PRN RECTAL SEVERE CONSITIPATION; Start at 12:30 Lactulose (Lactulose Liq) 30 ml DAILY PRN PO SEVERE CONSITIPATION; Start at 12:30 Sodium Chloride (NS Flush) 2 ml UNSCH PRN IV FLUSH FLUSH AFTER USING IV ACCESS ; Start 04/27/17 at 12:30; Status UNV Sodium Chloride (NS Flush) 2 ml BID IV FLUSH ; Start 04/27/17 at 21:00; Status UNV Lactulose (Lactulose Liq) 30 ml Q6H PO ; Start 04/27/17 at 14:00 Rifaximin (Xifaxan) 550 mg BID PO ; Start 04/27/17 at 21:00 Thiamine HCl (Vitamin B1) 100 mg DAILY PO ; Start 04/28/17 at 09:00; Status UNV Folic Acid (Folate) 1 mg DAILY PO ; Start 04/27/17 at 14:00; Stop 05/02/17 at 13 :59 Thiamine HCl (Vitamin B1) 100 mg DAILY PO ; Start 04/27/17 at 14:00 Multivitamins/ Minerals Therapeutic (Theragran M Tab) 1 tab DAILY PO ; Start at 14:00; Stop 05/02/17 at 13:59 Pantoprazole Sodium (Protonix) 40 mg DAILY PO ; Start 04/27/17 at 14:00 Clonidine (Catapres) 0.1 mg Q6H PRN PO SEE LABEL COMMENTS; Start 04/27/17 at 12 :30 Nicotine (Habitrol 14 Mg Patch.24 Hr) 1 patch ONCE ONCE T-DERMAL ; Start at 14:00; Stop 04/27/17 at 14:01; Status DC Nicotine (Habitrol 14 Mg Patch.24 Hr) 1 patch DAILY T-DERMAL ; Start 04/28/17 at 09:00 Miscellaneous Information 1 DAILY T-DERMAL ; Start 04/28/17 at 09:00 Albuterol/ Ipratropium (Duoneb Neb) 1 ampule Q4HR NEB PRN NEB SHORTNESS OF BREATH; Start 04/27/17 at 12:45 Guaifenesin (Mucinex Er) 600 mg BID PO ; Start 04/27/17 at 13:30 Piperacillin Sod/ Tazobactam Sod 100 ml @ 200 mls/hr Q6H IV ; Start 04/27/17 at 18:00 Family History Alcohol abuse tobacco abuse Social History Smokes at least a half a pack of tobacco to a pack a day Drinks a fifth of vodka every day recently stopped Physical Exam Vital Signs Vital Signs Date Time Temp Pulse Resp B/P (MAP) Pulse Ox O2 Delivery O2 Flow Rate FiO2 04/27/17 13:52 Nasal Cannula 2.00 04/27/17 13:45 83 19 98/74 (82) 100 Nasal Cannula 2.00 04/27/17 13:40 81 20 99/74 (82) 100 Nasal Cannula 2.00 04/27/17 13:35 97.4 92 20 66/50 (55) 100 Nasal Cannula 2.00 04/27/17 12:52 100 Room Air 04/27/17 10:04 100 Room Air 04/27/17 09:35 97.9 106 14 88/58 (68) 100 Physical Exam GENERAL: This is a well-nourished, well-developed patient, in no apparent distress. SKIN: No rashes, ecchymoses or lesions. Cool and dry. HEAD: Atraumatic. Normocephalic. No temporal or scalp tenderness. EYES: Pupils equal round and reactive. Extraocular motions intact. No scleral icterus. No injection or drainage. ENT: Nose without bleeding, purulent drainage or septal hematoma. Throat without erythema, tonsillar hypertrophy or exudate. Uvula midline. Airway patent. Tongue is midline NECK: Trachea midline. No JVD or lymphadenopathy. Supple, nontender, no meningeal signs. CARDIOVASCULAR: Regular rate and rhythm without murmurs, gallops, or rubs. S1 and S2 no S3 or S4 RESPIRATORY: Clear to auscultation. Breath sounds equal bilaterally. No wheezes , rales, or rhonchi. GASTROINTESTINAL: Abdomen soft, non-tender, nondistended. No hepato-splenomegaly , or palpable masses. No guarding. MUSCULOSKELETAL: Extremities without clubbing, cyanosis, or edema. No joint tenderness, effusion, or edema noted. No calf tenderness. Negative Homans sign bilaterally. NEUROLOGICAL: Awake and alert. Cranial nerves II through XII intact. Motor and sensory grossly within normal limits. 4 out of 5 muscle strength in all muscle groups. Normal speech. Insight and judgment is poor Mood and behavior are somewhat appropriate Laboratory Laboratory Tests Test 04/27/17 10:05 04/27/17 11:25 04/27/17 11:55 White Blood Count 2.7 Red Blood Count 2.95 Hemoglobin 11.5 Hematocrit 34.6 Mean Corpuscular Volume 117.2 Mean Corpuscular Hemoglobin 38.9 Mean Corpuscular Hemoglobin Concent 33.2 Red Cell Distribution Width 22.5 Platelet Count 44 Mean Platelet Volume 10.6 Neutrophils (%) (Auto) 80.7 Lymphocytes (%) (Auto) 14.0 Monocytes (%) (Auto) 4.2 Eosinophils (%) (Auto) 0.9 Basophils (%) (Auto) 0.2 Neutrophils # (Auto) 2.2 Lymphocytes # (Auto) 0.4 Monocytes # (Auto) 0.1 Eosinophils # (Auto) 0.0 Basophils # (Auto) 0.0 CBC Comment AUTO DIFF Differential Comment AUTO DIFF CONFIRMED Platelet Estimate LOW Platelet Morphology Comment NORMAL Ovalocytes 1+ Prothrombin Time 12.4 Prothromb Time International Ratio 1.1 Activated Partial Thromboplast Time 26.4 Blood Urea Nitrogen 25 Creatinine 1.18 Random Glucose 132 Total Protein 5.7 Albumin 2.4 Calcium Level 7.7 Magnesium Level 1.4 Alkaline Phosphatase 91 Aspartate Amino Transf (AST/SGOT) 64 Alanine Aminotransferase (ALT/SGPT) 28 Total Bilirubin 0.8 Sodium Level 135 Potassium Level 2.8 Chloride Level 99 Carbon Dioxide Level 19.3 Anion Gap 17 Estimat Glomerular Filtration Rate 63 Total Creatine Kinase 28 Troponin I LESS THAN 0.02 Urine Color ORANGE Urine Turbidity HAZY Urine pH 6.0 Urine Specific [place] 1.021 Urine Protein 30 Urine Glucose (UA) NEG Urine Ketones NEG Urine Occult Blood TRACE Urine Nitrite POS Urine Bilirubin NEG Urine Urobilinogen 8.0 Urine Leukocyte Esterase NEG Urine RBC 5 Urine WBC 25 Urine Squamous Epithelial Cells <1 Urine Bacteria MOD Urine Hyaline Casts 6 Urine Mucus FEW Microscopic Urinalysis Comment CULTURE INDICATED Lactic Acid Level 5.0 Date/Time Source Procedure Growth Status 04/27/17 11:55 Blood Peripheral Aerobic Blood Culture Pending Received 04/27/17 11:55 Blood Peripheral Anaerobic Blood Culture Pending Received 04/27/17 11:25 Urine Random Urine Urine Culture Pending Received Result Diagram: 04/27/17 1005 04/27/17 1005 Imaging Last Impressions Head CT 04/27/17 1017 Signed Impressions: Service Date/Time: Thursday, April 27, 2017 11:00 - CONCLUSION: 1. No acute intracranial abnormality. 2. Complete opacification left maxillary sinus. Keagan Shipman MD Chest X-Ray 04/27/17 1000 Signed Impressions: Service Date/Time: Thursday, April 27, 2017 10:30 - CONCLUSION: Overall stable chest MD Armando Sorensen VTE Risk Assessment Caprini VTE Risk Assessment: Mod/High Risk (score >= 2) Caprini Risk Assessment Model Point Value = 1 Point Value = 2 Point Value = 3 Point Value = 5 Age 41-60 Minor surgery BMI > 25 kg/m2 Swollen legs Varicose veins or History of unexplained or recurrent spontaneous Oral contraceptives or hormone replacement Sepsis (< 1 month) Serious lung disease, including pneumonia (< 1 month) Abnormal pulmonary function Acute myocardial infarction Congestive heart failure (< 1 month) History of inflammatory bowel disease Medical patient at bed rest Age 61-74 Arthroscopic surgery Major open surgery (> 45 min) Laparoscopic surgery (> 45 min) Malignancy Confined to bed (> 72 hours) Immobilizing plaster cast Central venous access Age >= 75 History of VTE Family history of VTE Factor V Leiden Prothrombin 52411H Lupus anticoagulant Anticardiolipin antibodies Elevated serum homocysteine Heparin-induced thrombocytopenia Other congenital or acquired thrombophilia Stroke (< 1 month) Elective arthroplasty Hip, pelvis, or leg fracture Acute spinal cord injury (< 1 month) Prophylaxis Regimen Total Risk Factor Score Risk Level Prophylaxis Regimen 0-1 Low Early ambulation 2 Moderate Order ONE of the following: *Sequential Compression Device (SCD) *Heparin 5000 units SQ BID 3-4 Higher Order ONE of the following medications: *Heparin 5000 units SQ TID *Enoxaparin/Lovenox 40 mg SQ daily (WT < 150 kg, CrCl > 30 mL/min) *Enoxaparin/Lovenox 30 mg SQ daily (WT < 150 kg, CrCl > 10-29 mL/min) *Enoxaparin/Lovenox 30 mg SQ BID (WT < 150 kg, CrCl > 30 mL/min) AND/OR *Sequential Compression Device (SCD) 5 or more Highest Order ONE of the following medications: *Heparin 5000 units SQ TID (Preferred with Epidurals) *Enoxaparin/Lovenox 40 mg SQ daily (WT < 150 kg, CrCl > 30 mL/min) *Enoxaparin/Lovenox 30 mg SQ daily (WT < 150 kg, CrCl > 10-29 mL/min) *Enoxaparin/Lovenox 30 mg SQ BID (WT < 150 kg, CrCl > 30 mL/min) AND *Sequential Compression Device (SCD) Assessment and Plan Problem List: (1) Acute sinusitis ICD Code: J01.90 - Acute sinusitis, unspecified Status: Acute (2) Hypokalemia ICD Code: E87.6 - Hypokalemia Status: Acute (3) Hypomagnesemia ICD Code: E83.42 - Hypomagnesemia Status: Acute (4) UTI (urinary tract infection) ICD Code: N39.0 - Urinary tract infection, site not specified Status: Acute (5) Chronic alcoholism ICD Code: F10.20 - Alcohol dependence, uncomplicated Status: Acute (6) Dizziness ICD Code: R42 - Dizziness and giddiness Status: Acute (7) Tobacco abuse ICD Code: Z72.0 - Tobacco use (8) Alcohol abuse ICD Code: F10.10 - Alcohol abuse, uncomplicated (9) Sepsis ICD Code: A41.9 - Sepsis, unspecified organism Assessment and Plan Dizziness. We'll get physical therapy and occupational therapy to eval and treat Urinary tract infection will continue on antibiotics. Cultures Surgeries/sepsis we'll continue on antibiotics and fluid rehydration Hypo-magnesium will replace with 2 g of IV magnesium Hypo-kalemia replace after the magnesium has been replaced Gait instability will get physical therapy and occupational therapy to eval and treat Sinusitis continue on IV antibiotics Aggressive fluid rehydration Recheck elevated lactate level Will replaced potassium and magnesium is and monitor here today A.m. labs We'll continue on lactulose continue on rifaximin Continue on medications for bowel movements And we'll aggressively do physical therapy and occupational therapy Code Status Full code Discussed Condition With dISCUSSED WITH er PHYSICIAN WELL patient his mother and RN Physician Certification 2 Midnight Certification Type: Admission for Inpatient Services Order for Inpatient Services The services are ordered in accordance with Medicare regulations or non- Medicare payer requirements, as applicable. In the case of services not specified as inpatient-only, they are appropriately provided as inpatient services in accordance with the 2-midnight benchmark. Estimated LOS (days): 4 4 days is the estimated time the patient will need to remain in the hospital, assuming treatment plan goals are met and no additional complications. Post-Hospital Plan: Not yet determined Patricio Watkins DO Apr 27, 2017 14:15
[2017-04-27] MEDS ORDERED: POTASSIUM CHLORIDE 10 MEQ CONTROLLED RELEASE TAB PO ONE (14:30)
[2017-04-27] MEDS: guaiFENesin E.R. 600 MG TAB PO SCH (14:41)
[2017-04-27] MEDS: NS + KCL 40 MEQ INJ 1,000 ML IV SCH (14:51)
[2017-04-27] MEDS ORDERED: VANCOMYCIN INJ 1,000 MG in SODIUM CHLOR 0.9% 250 ML INJ 250 ML IV ONE (15:00)
[2017-04-27] MEDS: VANCOMYCIN 1,000 MG/NS 250 ML IV SCH ×2 (15:00)
[2017-04-27 15:36] LABS: CREATINE KINASE 39 U/L (39-308)
--- NOTE | 2017-04-27 16:15 | EKG ---
Date Performed: 04/27/2017 Time Performed: 10:03:14 PTAGE: 61 years EKG: SINUS TACHYCARDIA WITH OCCASIONAL ECTOPIC PREMATURE COMPLEXES MARKED LEFT AXIS DEVIATION LO W QRS VOLTAGE IN PRECORDIAL LEADS MINIMAL ST DEPRESSION ABNORMAL ECG Since PREVIOUS TRACING , no significant change noted DOCTOR: Shilpa Richardson Interpretating Date/Time 04/27/2017 16:13:17
[2017-04-27] MEDS ORDERED: CHLORHEXIDINE GLUCONATE 2 % 1 PACK (2 CLOTHS)(extra cloths) TOPICAL PRN (17:30)
[2017-04-27] MEDS: PIPERACIL-TAZO 4.5 GM PREMIX 100 ML IV SCH (18:59)
[2017-04-27] MEDS ORDERED: SODIUM CHLOR 0.9% 1000 ML INJ 1,000 ML IV ONE (20:00)
[2017-04-27] MEDS: DOCUSATE SODIUM 50 MG/SENNA 8.6 MG TAB PO SCH (21:00)
[2017-04-27] MEDS ORDERED: SODIUM CHLORIDE 0.9% FLUSH 10 ML FLUSH IV FLUSH SCH (21:00)
[2017-04-27 21:52] LABS: ALCOHOL LESS THAN 3 MG/DL (0-5); CREATINE KINASE 37 U/L (39-308)
[2017-04-27] MEDS ORDERED: NOREPINEPHRINE-DEXTROSE DRIP 250 ML IV ONE (22:23)
[2017-04-27] MEDS ORDERED: TERBUTALINE INJ 1 MG/ML AMP SQ PRN (22:30)
--- NOTE | 2017-04-27 22:47 | PD.CONS ---
HPI Service Critical Care Medicine Consult Requested By Primary Care Physician No Primary Care Physician History of Present Illness 61yM with h/o prior hepatic encephalopathy, etoh abuse, tobacco abuse, now admitted with weakness, fever, chills, worsening hypotension. called by hospitalist service overnight for clinical decline despite ivf resuscitation. Patient does complain of flank pain, but denies chest pain, abdominal pain. u/a +. started earlier on vanc/zosyn. has not voided. becoming worseningly agitated. unable to provide any additional information due to altered mental status. Review of Systems ROS Limitations: Clinical Condition, Altered Mental Status, Combative Constitutional: COMPLAINS OF: Fever, Chills Respiratory: DENIES: Shortness of breath Cardiovascular: DENIES: Chest pain, Palpitations, Syncope Gastrointestinal: DENIES: Constipation, Diarrhea, Nausea, Vomiting Musculoskeletal: COMPLAINS OF: Back pain Past Family Social History Allergies: Coded Allergies: No Known Allergies (Verified Allergy, Unknown, 04/27/17) Uncoded Allergies: STEROIDS (Allergy, Unknown, 07/13/14) Past Medical History COPD and tobacco abuse Alcohol abuse History of alcohol withdrawal seizures Past Surgical History Tonsillectomy Reported Medications Wheelchair (Device) 1 Mis Mis Ea .XX DIRECTED Lactulose Liq (Lactulose) 10 Gm/15 Ml Soln 30 Ml PO BID Gabapentin 300 Mg Cap 300 Mg PO TID Spiriva Handihaler (Tiotropium Inh) 18 Mcg Cap 18 Mcg INH DAILY 1 capsule = 18 mcg Active Ordered Medications See MAR Family History Alcohol abuse tobacco abuse Social History 1/2 ppd smoker, drinks 5th of vodka daily, recently quit. Physical Exam Vital Signs Vital Signs Date Time Temp Pulse Resp B/P (MAP) Pulse Ox O2 Delivery O2 Flow Rate FiO2 04/27/17 18:00 104 04/27/17 18:00 104 28 84/62 (69) 100 04/27/17 17:00 78 20 101/66 (78) 100 04/27/17 16:00 90 04/27/17 16:00 98.0 90 28 89/63 (72) 98 04/27/17 15:53 04/27/17 14:52 73 19 94/59 (71) 98 Nasal Cannula 2.00 04/27/17 13:52 Nasal Cannula 2.00 04/27/17 13:45 83 19 98/74 (82) 100 Nasal Cannula 2.00 04/27/17 13:40 81 20 99/74 (82) 100 Nasal Cannula 2.00 04/27/17 13:35 97.4 92 20 66/50 (55) 100 Nasal Cannula 2.00 04/27/17 12:52 100 Room Air 04/27/17 10:04 100 Room Air 04/27/17 09:35 97.9 106 14 88/58 (68) 100 Physical Exam GENERAL: Middle-aged male, lying in bed, severe distress due to hypotension and chills HEENT: Normocephalic. Atraumatic. Pupils equal, round, reactive, conjugate. Mucous membranes are moist NECK: Trachea is midline. There is no JVD. CHEST: Mildly tachypneic, equal chest rise CARDIOVASCULAR: Tachycardic rate, regular rhythm. Hypotensive with systolics in the 80s. On norepinephrine at 11 mcg/m ABDOMEN: Soft, nontender, nondistended. No guarding. grossly +CVA tenderness. MUSCULOSKELETAL: Pulses 2+. No peripheral edema. NEUROLOGICAL: RASS -1 or +1. intermittently agitated. CAM+. follows commands. Laboratory Laboratory Tests Test 04/27/17 10:05 04/27/17 11:25 04/27/17 11:55 04/27/17 14:15 White Blood Count 2.7 Red Blood Count 2.95 Hemoglobin 11.5 Hematocrit 34.6 Mean Corpuscular Volume 117.2 Mean Corpuscular Hemoglobin 38.9 Mean Corpuscular Hemoglobin Concent 33.2 Red Cell Distribution Width 22.5 Platelet Count 44 Mean Platelet Volume 10.6 Neutrophils (%) (Auto) 80.7 Lymphocytes (%) (Auto) 14.0 Monocytes (%) (Auto) 4.2 Eosinophils (%) (Auto) 0.9 Basophils (%) (Auto) 0.2 Neutrophils # (Auto) 2.2 Lymphocytes # (Auto) 0.4 Monocytes # (Auto) 0.1 Eosinophils # (Auto) 0.0 Basophils # (Auto) 0.0 CBC Comment AUTO DIFF Differential Comment AUTO DIFF CONFIRMED Platelet Estimate LOW Platelet Morphology Comment NORMAL Ovalocytes 1+ Prothrombin Time 12.4 Prothromb Time International Ratio 1.1 Activated Partial Thromboplast Time 26.4 Blood Urea Nitrogen 25 Creatinine 1.18 Random Glucose 132 Total Protein 5.7 Albumin 2.4 Calcium Level 7.7 Magnesium Level 1.4 Alkaline Phosphatase 91 Aspartate Amino Transf (AST/SGOT) 64 Alanine Aminotransferase (ALT/SGPT) 28 Total Bilirubin 0.8 Sodium Level 135 Potassium Level 2.8 Chloride Level 99 Carbon Dioxide Level 19.3 Anion Gap 17 Estimat Glomerular Filtration Rate 63 Total Creatine Kinase 28 39 Troponin I LESS THAN 0.02 LESS THAN 0.02 Urine Color ORANGE Urine Turbidity HAZY Urine pH 6.0 Urine Specific [place] 1.021 Urine Protein 30 Urine Glucose (UA) NEG Urine Ketones NEG Urine Occult Blood TRACE Urine Nitrite POS Urine Bilirubin NEG Urine Urobilinogen 8.0 Urine Leukocyte Esterase NEG Urine RBC 5 Urine WBC 25 Urine Squamous Epithelial Cells <1 Urine Bacteria MOD Urine Hyaline Casts 6 Urine Mucus FEW Microscopic Urinalysis Comment CULTURE INDICATED Lactic Acid Level 5.0 Ammonia 53 Test 04/27/17 15:10 04/27/17 16:15 04/27/17 21:10 Lactic Acid Level 3.1 2.4 Nasal Screen MRSA (PCR) MRSA NOT DETECTED Total Creatine Kinase 37 Troponin I 0.02 Ethyl Alcohol Level LESS THAN 3 Date/Time Source Procedure Growth Status 04/27/17 14:15 Blood Peripheral Aerobic Blood Culture Pending Received 04/27/17 14:15 Blood Peripheral Anaerobic Blood Culture Pending Received 04/27/17 11:25 Urine Random Urine Urine Culture Pending Received Result Diagram: 04/27/17 1005 04/27/17 1005 Imaging Last Impressions Chest X-Ray 04/28/17 0000 Signed Impressions: Service Date/Time: Thursday, April 27, 2017 23:45 - CONCLUSION: 1. No evidence of pneumothorax. 2. Large hiatus hernia. Rogerio Gunn MD Head CT 04/27/17 1017 Signed Impressions: Service Date/Time: Thursday, April 27, 2017 11:00 - CONCLUSION: 1. No acute intracranial abnormality. 2. Complete opacification left maxillary sinus. Keagan Shipman MD Renal Ultrasound 04/27/17 0000 Signed Impressions: Service Date/Time: Thursday, April 27, 2017 23:50 - CONCLUSION: Negative renal sonogram. Rogerio Gunn MD Assessment and Plan Assessment and Plan Assessment: 61yM with worsening septic shock, lactic acidosis, by clinical exam and + u/a likely urinary in origin. Lipase and amylase with LFTs normal, unlikely to be gallbladder or intra-abdominal in source. CXR clear and without cough or sputum production. Continue iv abx. place art line and central line. continue ivf resuscitation and norepinephrine. critically ill and worsening throughout the day today. Active Problems: Septic Shock Lactic Acidosis Urinary tract infection Metabolic Encephalopathy Possible etoh withdraw Plan: - remain in ICU - levophed for MAP > 65 mmHg - 1L LR bolus - continue mivf @ 125 cc/hr - place Young catheter - obtain renal u/s to rule out obstructive/infected uropathy - strict I/Os - agree with vanc/zosyn - f/u cultures - place art line, central line - trend lactates - abg. - watch for further signs of etoh withdraw This patient remains critically ill with one or more organ systems which are or may become a threat to life. I have spent in excess of 58 minutes discontinuously in the care and management of this patient. This time is exclusive of procedures, and includes, but is not limited to, evaluation of the patient, review of the medical record, discussions with family, consultants, nursing staff, or respiratory therapy, and documentation in the medical record. Gabriel Alvares MD Apr 27, 2017 22:47
[2017-04-27 23:05] LABS: AMYLASE 19 U/L (25-115)
[2017-04-27] MEDS ORDERED: MIDAZOLAM HCL 5 MG/ML VIAL (1 ML) ONE ×2 (23:13→23:22)
[2017-04-27 23:35] LABS: BLOOD GAS BASE EXCESS -6.2 mmol/L (-2-2); BLOOD GAS CARBOXYHEMOGLOBIN 1.2 % (0-4); BLOOD GAS HCO3 18 mmol/L (22-26); BLOOD GAS METHEMOGLOBIN 1.1 % (0-2); BLOOD GAS O2 HGB SATURATION 96 % (90-100); BLOOD GAS OXYGEN CONTENT 12.8 Vol % (12.0-20.0); BLOOD GAS PCO2 33 mmHg (38-42); BLOOD GAS PO2 120 mmHg (61-120); BLOOD GAS TOTAL HGB 9.3 G/DL (12.0-16.0); TEMP CORR TO 98.6
[2017-04-27 23:36] LABS: CRITICAL VALUE NO; DRAW SITE ART LINE; LITER FLOW 4 L/M; OXYGEN DEVICE NASAL CANNULA; STAT YES
--- NOTE | 2017-04-27 23:40 | PD.PROCEDR ---
Procedure Note Procedure Procedure: Arterial Line Placement Right radial arterial line Diagnosis: Septic Shock Indications: Need for beat to beat hemodynamic monitoring Consent: Emergent Description of the Procedure: The right wrist was prepped and draped sterilely. 1% lidocaine was used for local anesthesia. The pulse was located and a needle was advanced into the artery. A 20 gauge, 12 cm catheter was advanced into the artery using a modified Seldinger technique. The catheter was sutured to the skin and a sterile dressing was applied. The catheter was connected to a pressure transducer and an arterial waveform was noted. There were no immediate complications noted. There was minimal EBL. I personally performed the procedure. Gabriel Alvares MD Apr 27, 2017 23:40
--- NOTE | 2017-04-27 23:42 | PD.PROCEDR ---
Procedure Note Procedure Central Line Procedure Note Right femoral triple-lumen catheter Diagnosis: Septic shock Indications: Need for highly potent vasoactive substances Consent: Emergent Anesthesia: One percent lidocaine locally, Versed 2 mg IV Description of the Procedure: The patient was placed in the supine position. The area was prepped and draped sterilely. A 19g needle was inserted under negative pressure aspiration and dark venous blood was obtained. A guidewire was inserted easily without resistance. A small incision was made using a #11 blade. Using a modified Seldinger technique, the dilator and 7 Peruvian, 20 cm catheter were advanced over the guidewire without resistance. All ports were aspirated and flushed, and had brisk blood return. The line was secured at 20cm at the skin using 2-0 silk interrupted sutures. A Biopatch and Transparent sterile dressing were applied. There were no immediate complications noted. There was minimal EBL. The patient tolerated the procedure well. Ultrasound guidance was not used for this procedure I personally performed the procedure. Gabriel Alvares MD Apr 27, 2017 23:42
[2017-04-27] MEDS ORDERED: LACTATED RINGER'S 1000 ML INJ 1,000 ML IV ONE (23:45)
[2017-04-28] VITALS (55 sets, daily range): BP systolic 75–154; BP diastolic 48–105; PULSE 62–109; RESP 6–37; TEMP 97.7–99.6; O2SAT 90–100
--- NOTE | 2017-04-28 00:24 | RADRPT ---
EXAM DATE/TIME: 04/27/2017 23:45 [facility] COMPARISON: CT ABDOMEN & PELVIS W/O CONTRAST, July 19, 2016, 13:36. CHEST SINGLE AP, July 19, 2016, 13:1 1. CHEST SINGLE AP, April 27, 2017, 10:30. INDICATIONS : Pneumothorax. MEDICAL HISTORY : Chronic obstructive pulmonary disease. Seizures. SURGICAL HISTORY : None. ENCOUNTER: Subsequent ACUITY: 1 day PAIN SCORE: Non-responsive. LOCATION: Bilateral chest FINDINGS: Patient is rotated toward the right. The heart is enlarged, similar to prior. There is a retrocardi ac density characteristic of a large hiatus hernia. The lungs are symmetrically aerated and clear. Both hemidiaphragms well delineated. No evidence of pneumothorax. CONCLUSION: 1. No evidence of pneumothorax. 2. Large hiatus hernia. Rogerio Gunn MD on April 28, 2017 at 0:21 Board Certified Radiologist. This report was verified electronically.
--- NOTE | 2017-04-28 00:25 | RADRPT ---
EXAM DATE/TIME: 04/27/2017 23:50 [facility] COMPARISON: No previous studies available for comparison. INDICATIONS : Flank pain. MEDICAL HISTORY : Chronic obstructive pulmonary disease. Seizures. ETOH abuse. Syncope. Confusion. Weakness. SURGICAL HISTORY : Tonsillectomy. ENCOUNTER: Initial ACUITY: 1 day PAIN SCORE: Nonresponsive. LOCATION: Bilateral flank MEASUREMENTS: RIGHT KIDNEY: 12.7 x 6.2 x 7.1 cm LEFT KIDNEY: 11.3 x 6.7 x 7.4 cm FINDINGS: RIGHT KIDNEY: Renal cortex is normal in thickness and echotexture. No hydronephrosis, stone, or mass. LEFT KIDNEY: Renal cortex is normal in thickness and echotexture. No hydronephrosis, stone, or mass. BLADDER: Young catheter in a nondistended bladder. CONCLUSION: Negative renal sonogram. Rogerio Gunn MD on April 28, 2017 at 0:23 Board Certified Radiologist. This report was verified electronically.
[2017-04-28] MEDS: PIPERACIL-TAZO 4.5 GM PREMIX 100 ML IV SCH ×5 (00:47→23:47)
[2017-04-28] MEDS: SODIUM CHLORIDE 0.9% FLUSH 10 ML FLUSH IV FLUSH SCH ×3 (00:48→21:25)
[2017-04-28] MEDS: LACTULOSE SYRUP 20 GM/30 ML CUP PO SCH ×5 (00:48→21:24)
[2017-04-28] MEDS: RIFAXIMIN 550 MG TAB PO SCH ×3 (00:49→21:25)
[2017-04-28] MEDS: guaiFENesin E.R. 600 MG TAB PO SCH (00:49)
[2017-04-28] MEDS: NS + KCL 40 MEQ INJ 1,000 ML IV SCH (03:34)
[2017-04-28] MEDS: VANCOMYCIN 1,000 MG/NS 250 ML IV SCH ×4 (03:42→15:22)
[2017-04-28] MEDS: CHLORHEXIDINE GLUCONATE 2 % 1 PACK (2 CLOTHS)(taper/protocol) TOPICAL SCH (04:00)
[2017-04-28] MEDS ORDERED: POTASSIUM CHLORIDE 25 MEQ EFFERVESCENT TAB PO PRN (07:15)
[2017-04-28] MEDS ORDERED: FLUMAZENIL 0.5 MG/5 ML VIAL IV PUSH PRN (07:15)
[2017-04-28] MEDS ORDERED: POTASSIUM CHLOR 40 MEQ PREMIX 100 ML IV PRN (07:15)
[2017-04-28] MEDS ORDERED: LORazepam 1 MG TAB PO PRN (07:15)
[2017-04-28] MEDS ORDERED: MAGNESIUM SULFATE INJ 4 GM in SODIUM CHLORIDE 0.9% INJ 92 ML IV PRN (07:15)
[2017-04-28] MEDS ORDERED: POTASSIUM PHOSPHATE MONOBASIC 500 MG TAB PO PRN (07:15)
[2017-04-28] MEDS ORDERED: LORazepam 2 MG/ML VIAL IV PUSH PRN (07:15)
[2017-04-28] MEDS ORDERED: LORazepam 2 MG TAB PO PRN (07:15)
[2017-04-28] MEDS ORDERED: MAGNESIUM OXIDE 400 MG TAB PO PRN (07:15)
[2017-04-28] MEDS ORDERED: POTASSIUM PHOSPHATE MONOBASIC 500 MG TAB PO/TUBE PRN (07:15)
[2017-04-28] MEDS ORDERED: POTASSIUM PHOSPHATE INJ 30 MMOL in SODIUM CHLOR 0.9% 250 ML INJ 250 ML IV PRN (07:15)
--- NOTE | 2017-04-28 07:22 | HHI.CCPN ---
Subjective Remarks/Hospital Course 61yM with h/o prior hepatic encephalopathy, etoh abuse, tobacco abuse, now admitted with weakness, fever, chills, worsening hypotension. called by hospitalist service overnight for clinical decline despite ivf resuscitation. Patient does complain of flank pain, but denies chest pain, abdominal pain. u/a +. started earlier on vanc/zosyn. has not voided. becoming worseningly agitated. unable to provide any additional information due to altered mental status. Subjective 04/28: Chart reviewed. Patient still quite agitated stating "I have to pee" patient has a Young catheter. Complaining of flank pain. Noted renal ultrasound negative. Currently on norepinephrine at 12 mg per minute. Objective Vital Signs Date Time Temp Pulse Resp B/P (MAP) Pulse Ox O2 Delivery O2 Flow Rate FiO2 04/28/17 06:00 66 04/28/17 06:00 97.7 15 105/69 (81) 100 117/63 (81) 04/28/17 01:06 Simple Mask 6.00 Intake and Output 04/28/17 04/28/17 04/29/17 08:00 16:00 00:00 Intake Total 4650 ml Output Total 425 ml Balance 4225 ml Result Diagram: 04/27/17 1005 04/27/17 1005 Other Results Microbiology Date/Time Source Procedure Growth Status 04/27/17 14:15 Blood Peripheral Aerobic Blood Culture Pending Received 04/27/17 14:15 Blood Peripheral Anaerobic Blood Culture Pending Received 04/27/17 11:25 Urine Random Urine Urine Culture Pending Received Imaging Last Impressions Chest X-Ray 04/28/17 0000 Signed Impressions: Service Date/Time: Thursday, April 27, 2017 23:45 - CONCLUSION: 1. No evidence of pneumothorax. 2. Large hiatus hernia. Rogerio Gunn MD Head CT 04/27/17 1017 Signed Impressions: Service Date/Time: Thursday, April 27, 2017 11:00 - CONCLUSION: 1. No acute intracranial abnormality. 2. Complete opacification left maxillary sinus. Keagan Shipman MD Renal Ultrasound 04/27/17 0000 Signed Impressions: Service Date/Time: Thursday, April 27, 2017 23:50 - CONCLUSION: Negative renal sonogram. Rogerio Gunn MD Objective Remarks GENERAL: 61-year-old male, critically ill currently resting in bed moderately agitated SKIN: Warm and dry. No rash HEAD: Atraumatic. Normocephalic. EYES: Pupils equal and round about 3 mm bilaterally and reactive. No scleral icterus. No injection or drainage. ENT: No nasal bleeding or discharge. Mucous membranes pink and partly moist. Oropharynx without erythema or exudates NECK: Trachea midline. No JVD. CARDIOVASCULAR: Tachycardic, RR. S1, S2 no S4. Without murmur RESPIRATORY: Lungs are essentially clear to auscultation. Positive end expiratory wheeze. GASTROINTESTINAL: Abdomen family distended. Positive right flank pain. No right upper quadrant pain. MUSCULOSKELETAL: Extremities without significant peripheral edema. Patient has a right femoral line in place without hematoma. NEUROLOGICAL: Awake and alert. No obvious cranial nerve deficits. Moving all 4 extremities spontaneously. Slurred speech. PSYCHIATRIC: Extremely agitated. Urinary Catheter: Yes Assessment to: Continue Young insert reason: Prolonged Immobilization Vascular Central Line Catheter: Yes Assessment to: Continue Date of Insertion: Apr 28, 2017 Line: Central Venous Catheter Side: Right Location: Femoral A/P Assessment and Plan Neuro/Psych: Acute encephalopathy likely secondary to EtOH withdrawal/sepsis/hyperammonia EtOH Patient does drink 1/5 of vodka daily. CIWA protocol initiated Dexmedetomidine drip if needed to maintain RA SS 0 Thiamine, folate and multivitamin daily Follow-up on ammonia level in AM. - CGI CT brain 04/27 revealed left maxillary sinusitis otherwise no acute intra- cranial findings Patient does have a history of EtOH withdrawal seizures. Seizure precautions Loaded with phenobarbital 1 g 1. Recheck level in a.m. patient for EtOH withdrawal seizures invention/high CIWA score presently CV: Severe sepsis Lactic acidosis Source of sepsis unclear. Patient does have urine positive for likely infection. Currently empirically on piperacillin/tazobactam and vancomycin see ID Currently on normal saline with 40 mEq KCl at 125 cc an hour Norepinephrine to maintain MAP greater than 65 Renal ultrasound revealed no acute findings Serial lactates until clear Resp: COPD Ongoing tobaccoism Nasal cannula to maintain saturations greater than equal to 92% Incentive spirometry while awake Scheduled albuterol/hypertrophy aerosols every 6 hours with albuterol aerosols every 2 hours when necessary dyspnea Chest x-ray revealed no acute cardio pulmonary findings Nicotine patch 14 mg daily. Tobacco cessation education booklet provided GI: Hyperammonia - 53 Elevated AST Hypoalbuminemia Hiatal hernia Advance diet as tolerated Pantoprazole for GI prophylaxis Docusate sodium/senna 1 tablet twice a day for bowel regimen Currently on lactulose 30 cc every 6 hours and Xifaxan 500 mg by mouth twice a day for elevated ammonia. Recheck in a.m. : Young catheter has been placed for accurate I's and O's in a critically ill patient Endo: Sliding-scale insulin to maintain euglycemia with Accu-Cheks before meals/at bedtime with low regimen with Novulin R Check TSH Renal: Cystitis? Renal ultrasound revealed no acute findings Monitor urine output Accurate I's and O's Heme: Leukopenia Macrocytic anemia Thrombocytopenia Likely secondary to EtOH sepsis underlying chronic liver disease disease Follow CBC daily. Monitor trends. Check coags ID: Severe sepsis - unclear source possibly urine Day #2 piperacillin/tazobactam and vancomycin Pertinent cultures Blood cultures 2 -04/27 - pending Urine culture - 04/27 - pending FEN: Hypokalemia Hypo-magnesium Hyponatremia Replacing electrolytes per ICU electrolyte protocol. A.m. laboratories all pending MSK: PT evaluate and treat Access - Right femoral TLC day 2 placed 04/27 Prophylaxis - GI - pantoprazole - DVT - SCD/no pharmacological prophylaxis in light of thrombocytopenia Level II follow-up Addendum Patient's became more confused and agitated. Decision made to orotracheally intubated for airway protection. Please see note and orders. Received 2 L normal saline at the present time. Dallas Webb [phone] is HC proxy. Pt has an ex with 2 sons. One is disabled per Mother. Joseph is the other son and he defers medical decision making to Dallas Webb. Zakia Moore [phone] is pts sister, retired RN. She will be here Sunday. Ray Montes MD Apr 28, 2017 07:22
[2017-04-28 07:32] LABS: AUTOMATED NEUTROPHIL # 2.8 TH/MM3 (1.8-7.7); BASOPHIL % 0.6 % (0.0-2.0); EOSINOPHIL # 0.1 TH/MM3 (0-0.4); EOSINOPHIL % 3.2 % (0.0-4.0); HEMATOCRIT 27.3 % (39.0-51.0); LYMPH % 17.4 % (9.0-44.0); LYMPHOCYTE # 0.7 TH/MM3 (1.0-4.8); MEAN CELL VOLUME 116.3 FL (80.0-100.0); MEAN CORPUSCULAR HEMOGLOBIN 38.2 PG (27.0-34.0); MEAN CORPUSCULAR HGB CONC 32.9 % (32.0-36.0); MONO % 11.4 % (0.0-8.0); NEUT % 67.4 % (16.0-70.0); PLATELET COUNT 33 TH/MM3 (150-450); RED BLOOD COUNT 2.35 MIL/MM3 (4.50-5.90); RED CELL DISTRIBUTION WIDTH 22.3 % (11.6-17.2); WHITE BLOOD COUNT 4.2 TH/MM3 (4.0-11.0)
[2017-04-28 07:33] LABS: HEMO FLAGS AUTO DIFF
[2017-04-28] MEDS ORDERED: MISCELLANEOUS NURSING INFORMATION XX SCH (07:45)
[2017-04-28] MEDS ORDERED: CHLORHEXIDINE GLUCONATE 2 % 1 PACK (2 CLOTHS) TOP PRN (07:45)
[2017-04-28] MEDS ORDERED: RESP: ALBUTEROL 2.5 MG/3 ML NEB (PRN) INH (07:45)
[2017-04-28 07:47] LABS: INTERNATIONAL NORMALIZED RATIO 1.1 RATIO; PROTHROMBIN TIME - PATIENT 11.8 SEC (9.8-11.6)
[2017-04-28] MEDS ORDERED: PHENobarbital INJ 1,000 MG in SODIUM CHLORIDE 0.9% INJ 100 ML IV ONE (08:00)
[2017-04-28] MEDS ORDERED: ROCURONIUM INJ 50 MG/5 ML VIAL ONE (08:09)
[2017-04-28 08:14] LABS: ALKALINE PHOSPHATASE 75 U/L (45-117); ALT (GPT) 22 U/L (12-78); ANION GAP 6 MEQ/L (5-15); AST (GOT) 43 U/L (15-37); BICARBONATE 22.9 MEQ/L (21.0-32.0); BLOOD UREA NITROGEN 21 MG/DL (7-18); CALCIUM-PROTEIN CORRECTED 8.1 MG/DL (8.5-10.1); CHLORIDE 106 MEQ/L (98-107); FREE T4 1.08 NG/DL (0.76-1.46); GLOMERULAR FILTRATION RATE 128 ML/MIN (>89); MAGNESIUM 1.3 MG/DL (1.5-2.5); POTASSIUM 3.9 MEQ/L (3.5-5.1); SODIUM (NA) 135 MEQ/L (136-145); TOTAL BILIRUBIN ADULT 0.9 MG/DL (0.2-1.0)
[2017-04-28] MEDS ORDERED: PROPOFOL 1000 MG/100 ML INJ 100 ML IV PRN (08:15)
[2017-04-28] MEDS ORDERED: ETOMIDATE 40 MG/20 ML VIAL IV PUSH ONE (08:15)
[2017-04-28] MEDS ORDERED: ROCURONIUM INJ 50 MG/5 ML VIAL IV PUSH ONE (08:15)
--- NOTE | 2017-04-28 08:25 | PD.PROCEDR ---
Procedure Note Procedure DATE: 04/28/2017 PROCEDURE: Orotracheal intubation INDICATION: Acute respiratory failure DETAILS OF PROCEDURE The patient was placed in optimal position and preoxygenated with 100% FiO2 via bag valve mask. At the start oxygen saturation was 100%. The patient was administered 20 mg etomidate IV and 50 milligrams rocuronium IV. I entered the oropharynx with a size 4 GVL glidescope blade and obtained a grade 2 view of the airway. On single attempt a size 8.0 cuffed endotracheal tube was passed through the vocal cords. Correct tube location was confirmed with end tidal CO2 detector and by auscultating over bilateral lung escalante. The endotracheal tube was secured with adhesive tape at a depth of 24 cm at the lips. The patient was connected to the ventilator. The patient tolerated the procedure well without any apparent complications. Oxygen saturations were maintained greater than 95% all times. STAT chest x-ray pending at time of dictation. Ray Montes MD Apr 28, 2017 08:25
[2017-04-28] MEDS ORDERED: SODIUM CHLOR 0.9% 1000 ML INJ 1,000 ML IV ONE (08:30)
[2017-04-28] MEDS: NICOTINE 14 MG/24 HR PATCH T-DERMAL SCH (09:00)
[2017-04-28] MEDS ORDERED: THIAMINE HCL 100 MG TAB PO SCH (09:00)
[2017-04-28] MEDS ORDERED: TIOTROPIUM BROMIDE 18 MCG INH INH SCH (09:00)
[2017-04-28] MEDS: REMOVE OLD PATCH T-DERMAL SCH (09:00)
[2017-04-28] MEDS ORDERED: POTASSIUM CHLORIDE 10 MEQ CONTROLLED RELEASE TAB PO SCH (09:00)
[2017-04-28] MEDS ORDERED: ALBUMIN HUMAN 25% 25 GM/100 ML BAGP IV ONE ×2 (09:15→12:15)
--- NOTE | 2017-04-28 09:21 | RADRPT ---
EXAM DATE/TIME: 04/28/2017 08:43 [facility] COMPARISON: No previous studies available for comparison. INDICATIONS : NG tube placement. MEDICAL HISTORY : Chronic obstructive pulmonary disease. Seizures. SURGICAL HISTORY : None. ENCOUNTER: Initial ACUITY: 1 day PAIN SCORE: Non-responsive. LOCATION: Abdomen FINDINGS: Single view of the abdomen demonstrates a nonobstructive bowel gas pattern. No nasogastric tube is vi sualized. There multiple lines overlying the patient. Bones demonstrate no acute finding. CONCLUSION: The nasogastric tube is not visualized. Olu Triana MD on April 28, 2017 at 9:19 Board Certified Radiologist. This report was verified electronically.
--- NOTE | 2017-04-28 09:22 | RADRPT ---
EXAM DATE/TIME: 04/28/2017 08:36 [facility] COMPARISON: CHEST SINGLE AP, April 27, 2017, 23:45. INDICATIONS : Status post intubation and NG tube placement. MEDICAL HISTORY : Chronic obstructive pulmonary disease. Seizures. SURGICAL HISTORY : None. ENCOUNTER: Initial ACUITY: 1 day PAIN SCORE: Non-responsive. LOCATION: chest FINDINGS: Portable AP view of the chest demonstrates a normal-sized cardiac silhouette. Endotracheal tube is pr esent with tip measuring proximally 2.8 cm from the hoda. Nasogastric tube tip is in the distal eso phagus. Lungs are underinflated and there is retrocardiac airspace opacity. No pneumothorax is visual ized. CONCLUSION: 1. Endotracheal tube in appropriate position. However, nasogastric tube tip is in the distal esophagu s. Suggest advancement. 2. Persistent left lower lobe airspace opacity. Olu Triana MD on April 28, 2017 at 9:20 Board Certified Radiologist. This report was verified electronically.
[2017-04-28] MEDS: PANTOPRAZOLE SODIUM 40 MG VIAL IV PUSH SCH (09:30)
[2017-04-28] MEDS ORDERED: POTASSIUM PHOSPHATE INJ 15 MMOL in SODIUM CHLORIDE 0.9% INJ 150 ML IV ONE (10:00)
[2017-04-28] MEDS: POTASSIUM CHLORIDE INJ 10 MEQ in SODIUM CHLOR 0.9% 1000 ML INJ 1,000 ML IV SCH (10:00)
[2017-04-28] MEDS ORDERED: SODIUM PHOSPHATE INJ 30 MMOL in SODIUM CHLOR 0.9% 250 ML INJ 250 ML IV ONE (10:00)
[2017-04-28] MEDS ORDERED: CALCIUM GLUCONATE INJ 2 GM in SODIUM CHLORIDE 0.9% INJ 100 ML IV ONE (10:00)
[2017-04-28] MEDS: NOREPINEPHRINE INJ 4 MG in SODIUM CHLOR 0.9% 250 ML INJ 246 ML IV PRN ×4 (10:30→23:48)
[2017-04-28] MEDS ORDERED: DIATRIZOATE MEGLUM/DIATRIZOATE SOD 9 ML CUP PO ONE (10:30)
[2017-04-28 10:36] LABS: BLOOD GAS BASE EXCESS -6.6 mmol/L (-2-2); BLOOD GAS HCO3 18 mmol/L (22-26); BLOOD GAS METHEMOGLOBIN 0.9 % (0-2); BLOOD GAS O2 HGB SATURATION 98 % (90-100); BLOOD GAS OXYGEN CONTENT 12.7 Vol % (12.0-20.0); BLOOD GAS PCO2 32 mmHg (38-42); BLOOD GAS PO2 199 mmHg (61-120); BLOOD GAS TOTAL HGB 8.9 G/DL (12.0-16.0); CRITICAL VALUE NO; DRAW SITE ALINE; FIO2 50 %; OXYGEN DEVICE VENT; TEMP CORR TO 98.6
[2017-04-28 10:37] LABS: STAT NO
[2017-04-28] MEDS ORDERED: IOHEXOL 350 MG/ML 10 ML VIAL (for RAD DIAG) IV PUSH ONE (11:25)
[2017-04-28] MEDS: RESP: ALBUTEROL 2.5 MG/IPRATROPIUM 0.5 MG NEB (SCH) INH ×3 (11:27→20:01)
[2017-04-28 11:50] LABS: BANDS 1 % (0-6); CORRECTED NUCLEATED RBC 2 /100 WBC (0-0); EOSINOPHILS 3 % (0-4); NEUTROPHIL # MANUAL DIFF 3.1 TH/MM3 (1.8-7.7); OVALOCYTES 1+ (NORMAL); PLATELET ESTIMATE SMEAR LOW (NORMAL); PLATELET MORPHOLOGY NORMAL (NORMAL); POLYS (SEG NEUTROPHILS) 73 % (16-70); SCAN/DIFF FINAL DIFF MANUAL; WBC DIFF SAMPLE 100
--- NOTE | 2017-04-28 11:50 | RADRPT ---
EXAM DATE/TIME: 04/28/2017 11:03 [facility] COMPARISON: No previous studies available for comparison. INDICATIONS : Severe sepsis; aspiration. IV CONTRAST: 100 cc Omnipaque 350 (iohexol) IV ; Cumulative dose for multiple exams. RADIATION DOSE: 15.43 CTDIvol (mGy) ; Combined studies - Thorax/Abdomen/Pelvis MEDICAL HISTORY : Chronic obstructive pulmonary disease. ETOH SURGICAL HISTORY : None. ENCOUNTER: Initial ACUITY: 1 day PAIN SCALE: Non-responsive LOCATION: Bilateral chest TECHNIQUE: Volumetric scanning of the chest was performed. Using automated exposure control and adjustment of t he mA and/or kV according to patient size, radiation dose was kept as low as reasonably achievable to obtain optimal diagnostic quality images. DICOM format image data is available electronically for review and comparison. Follow-up recommendations for detected pulmonary nodules are based at a minimum on nodule size and pa tient risk factors according to Fleischner Society Guidelines. FINDINGS: LUNGS: There is mild respiratory motion artifact. Focal area of groundglass opacity is present within the li ngula. There is atelectasis in both lower lobes. No pneumothorax is present. PLEURA: There are small pleural effusions bilaterally. MEDIASTINUM: The heart and great vessels demonstrate no acute abnormality. There is no mediastinal or hilar lymph adenopathy. Nasogastric tube is present but terminates in the distal esophagus. The esophagus is dila donnell and filled with fluid. A moderate size hiatal hernia is present. Endotracheal tube is present. AXILLAE: Within normal limits. No lymphadenopathy. SKELETAL: There are degenerative changes of the thoracic spine. MISCELLANEOUS: Please refer to abdomen and pelvis CT report for description of the subdiaphragmatic findings. CONCLUSION: 1. Small bilateral pleural effusions with atelectasis in both lower lobes. There is also a focal area of groundglass opacity in the lingula that is nonspecific but could represent an infectious or infla mmatory process. 2. Moderate size hiatal hernia with dilated and fluid-filled esophagus suggesting gastroesophageal re flux. The nasogastric tube distal tip is in the distal esophagus and should ideally be advanced into the stomach. Olu Triana MD on April 28, 2017 at 11:43 Board Certified Radiologist. This report was verified electronically.
--- NOTE | 2017-04-28 11:55 | RADRPT ---
EXAM DATE/TIME: 04/28/2017 11:03 [facility] COMPARISON: CT ABDOMEN & PELVIS W/O CONTRAST, July 19, 2016, 13:36. INDICATIONS : Severe sepsis; aspiration. IV CONTRAST: 100 cc Omnipaque 350 (iohexol) IV ; Cumulative dose for multiple exams. ORAL CONTRAST: No oral contrast ingested. RADIATION DOSE: 15.43 CTDIvol (mGy) ; Combined studies - Thorax/Abdomen/Pelvis MEDICAL HISTORY : Chronic obstructive pulmonary disease. ETOH SURGICAL HISTORY : None. ENCOUNTER: Initial ACUITY: 1 day PAIN SCALE: Non-responsive LOCATION: Bilateral abdomen TECHNIQUE: Volumetric scanning of the abdomen and pelvis was performed. Using automated exposure control and ad justment of the mA and/or kV according to patient size, radiation dose was kept as low as reasonably achievable to obtain optimal diagnostic quality images. DICOM format image data is available electro nically for review and comparison. FINDINGS: LOWER LUNGS: Please refer to chest CT report for description of the supradiaphragmatic findings. LIVER: Heterogeneous density in likely representing steatosis. No focal lesion is seen. There is no dilatio n of the biliary tree. No calcified gallstones. SPLEEN: Normal size without lesion. PANCREAS: Within normal limits. KIDNEYS: Normal in size and shape. There is no mass or hydronephrosis. There is a 3 mm nonobstructing right r enal stone. ADRENAL GLANDS: Within normal limits. VASCULAR: There is no aortic aneurysm. There is mild atherosclerotic disease. Right femoral venous line is pres ent with distal tip in the right common iliac vein. BOWEL/MESENTERY: There is a moderate size hiatal hernia. Nasogastric tube distal tip is in the distal esophagus. Small bowel demonstrates no abnormality. There is sigmoid diverticulosis. Small volume of free fluid is pr esent within the abdomen and pelvis. There is no free intraperitoneal air. ABDOMINAL WALL: Within normal limits. RETROPERITONEUM: There is no lymphadenopathy. BLADDER: Decompressed with a Young catheter present. REPRODUCTIVE: Within normal limits. INGUINAL: There is no lymphadenopathy or hernia. MUSCULOSKELETAL: There are degenerative changes of the lumbar spine. CONCLUSION: 1. Small volume of free fluid within the abdomen and pelvis from uncertain etiology. Otherwise, no ac belen abnormality is identified within the abdomen or pelvis. 2. Nonacute findings include hepatic steatosis, moderate size hiatal hernia, 3 mm nonobstructing righ t renal stone, and sigmoid diverticulosis. Olu Triana MD on April 28, 2017 at 11:48 Board Certified Radiologist. This report was verified electronically.
[2017-04-28] MEDS ORDERED: MIDAZOLAM 100 MG/100 ML INJ 100 ML IV PRN (12:15)
[2017-04-28] MEDS: MAGNESIUM SULFATE 1 GM PREMIX 100 ML IV SCH ×4 (12:21→15:27)
[2017-04-28] MEDS: VASOPRESSIN INJ 40 UNITS in DEXTROSE 5% IN WATER 100ML INJ 98 ML IV SCH ×2 (13:11)
[2017-04-28] MEDS: fentaNYL DRIP 250 ML IV PRN (13:14)
[2017-04-28] MEDS: ARTIFICIAL TEARS OPTH SOLN 15 ML BTL EACH EYE SCH ×2 (14:00→21:25)
[2017-04-28] MEDS: AZITHROMYCIN INJ 500 MG in SODIUM CHLOR 0.9% 250 ML INJ 250 ML IV SCH (15:05)
[2017-04-28] MEDS ORDERED: MAGNESIUM SULFATE 1 GM PREMIX 100 ML ONE (15:16)
[2017-04-28] MEDS: MULTIVITAMIN INJ 10 ML, THIAMINE INJ 100 MG, FOLIC ACID INJ 1 MG in SODIUM CHLORID 0.9%... IV SCH (15:22)
--- NOTE | 2017-04-28 17:10 | PD.CONS ---
HPI History of Present Illness This is a 61 year old male with hx ETOH abuse, prior hepatic encephalopathy,, chronic alcoholism, ETOH withdrawal seizures who presented with weakness, dizziness, and having a fall and not being able to get up, per EMR. Pt is intubated, hx obtained from EMR. He subsequently developed worsening fever and hypotension and [place] [facility] [place] been [place]. GI has been consulted for likely cirrhosis, hiatal hernia, and hyperammonia. Pt does have NH level of 59. Mild elevation AST, other LFTs WNL currently. CT showed heterogenous density liver likely steatosis, small volume free fluid abdomen and pelvis, moderate hiatal hernia. Pt is heavy drinker. Pt was discharged from ER on 04/23 after being seen for hepatic encephalopathy (Renee Nieves) PFSH Past Medical History COPD and tobacco abuse Alcohol abuse History of alcohol withdrawal seizures Past Surgical History Tonsillectomy (Renee Nieves) Coded Allergies: No Known Allergies (Verified Allergy, Unknown, 04/27/17) Uncoded Allergies: STEROIDS (Allergy, Unknown, 07/13/14) Family History Alcohol abuse tobacco abuse Social History Smokes at least a half a pack of tobacco to a pack a day Drinks a fifth of vodka every day recently stopped (Renee Nieves) Review of Systems ROS noncontributory (Renee Nieves) GI Exam Vitals I&O Vital Signs Date Time Temp Pulse Resp B/P (MAP) Pulse Ox O2 Delivery O2 Flow Rate FiO2 04/28/17 16:30 69 110/73 04/28/17 16:03 100 50 04/28/17 14:00 72 04/28/17 13:12 77 131/63 04/28/17 13:11 77 128/61 04/28/17 12:58 100 50 04/28/17 12:00 70 04/28/17 11:32 95 50 04/28/17 10:55 95 50 04/28/17 10:30 105 145/105 04/28/17 10:00 70 04/28/17 08:29 100 50 04/28/17 08:00 68 04/28/17 06:00 66 04/28/17 06:00 97.7 66 15 105/69 (81) 100 117/63 (81) 04/28/17 03:30 73 99/55 04/28/17 02:00 85 04/28/17 01:06 99 Simple Mask 6.00 04/28/17 00:32 98.4 96 26 84/63 (70) 99 117/70 (86) 04/28/17 00:00 98.3 91 26 146/77 (100) 100 146/77 (100) 04/28/17 00:00 91 04/27/17 23:34 100 Nasal Cannula 4.00 04/27/17 22:00 87 04/27/17 20:32 98.4 81 22 64/49 (54) 99 04/27/17 20:00 71 04/27/17 18:00 104 04/27/17 18:00 104 28 84/62 (69) 100 I/O 04/27/17 04/27/17 04/27/17 04/28/17 04/28/17 04/28/17 07:00 15:00 23:00 07:00 15:00 23:00 Intake Total 200 ml 200 ml 4650 ml 900 ml Output Total 425 ml Balance 200 ml 200 ml 4225 ml 900 ml Intake Oral 200 ml IV Total 200 ml 200 ml 4450 ml 900 ml Output Urine Total 425 ml Stool Total 0 ml Imaging Last Impressions Chest X-Ray 04/28/17 0000 Signed Impressions: Service Date/Time: Friday, April 28, 2017 08:36 - CONCLUSION: 1. Endotracheal tube in appropriate position. However, nasogastric tube tip is in the distal esophagus. Suggest advancement. 2. Persistent left lower lobe airspace opacity. Olu Triana MD Chest CT 04/28/17 0000 Signed Impressions: Service Date/Time: Friday, April 28, 2017 11:03 - CONCLUSION: 1. Small bilateral pleural effusions with atelectasis in both lower lobes. There is also a focal area of groundglass opacity in the lingula that is nonspecific but could represent an infectious or inflammatory process. 2. Moderate size hiatal hernia with dilated and fluid-filled esophagus suggesting gastroesophageal reflux. The nasogastric tube distal tip is in the distal esophagus and should ideally be advanced into the stomach. Olu Triana MD Abdomen/Pelvis CT 04/28/17 0000 Signed Impressions: Service Date/Time: Friday, April 28, 2017 11:03 - CONCLUSION: 1. Small volume of free fluid within the abdomen and pelvis from uncertain etiology. Otherwise, no acute abnormality is identified within the abdomen or pelvis. 2. Nonacute findings include hepatic steatosis, moderate size hiatal hernia, 3 mm nonobstructing right renal stone, and sigmoid diverticulosis. Olu Triana MD Abdomen X-Ray 04/28/17 0000 Signed Impressions: Service Date/Time: Friday, April 28, 2017 08:43 - CONCLUSION: The nasogastric tube is not visualized. Olu Triana MD Head CT 04/27/17 1017 Signed Impressions: Service Date/Time: Thursday, April 27, 2017 11:00 - CONCLUSION: 1. No acute intracranial abnormality. 2. Complete opacification left maxillary sinus. Keagan Shipman MD Renal Ultrasound 04/27/17 0000 Signed Impressions: Service Date/Time: Thursday, April 27, 2017 23:50 - CONCLUSION: Negative renal sonogram. Rogerio Gunn MD Laboratory Test 04/27/17 21:10 04/27/17 23:24 04/28/17 06:40 04/28/17 10:20 Lactic Acid Level 2.4 mmol/L 1.8 mmol/L Total Creatine Kinase 37 U/L Troponin I 0.02 NG/ML Amylase Level 19 U/L Lipase 157 U/L Ethyl Alcohol Level LESS THAN 3 MG/DL Blood Gas Puncture Site ART LINE VENTURA Blood Gas Patient Temperature 98.6 98.6 Blood Gas HCO3 18 mmol/L 18 mmol/L Blood Gas Base Excess -6.2 mmol/L -6.6 mmol/L Blood Gas Oxygen Saturation 96 % 98 % Arterial Blood pH 7.36 7.36 Arterial Blood Partial Pressure CO2 33 mmHg 32 mmHg Arterial Blood Partial Pressure O2 120 mmHg 199 mmHg Arterial Blood Oxygen Content 12.8 Vol % 12.7 Vol % Arterial Blood Carboxyhemoglobin 1.2 % 1.0 % Arterial Blood Methemoglobin 1.1 % 0.9 % Blood Gas Hemoglobin 9.3 G/DL 8.9 G/DL Oxygen Delivery Device NASAL CANNULA VENT Blood Gas Liter Flow 4 L/M White Blood Count 4.2 TH/MM3 Red Blood Count 2.35 MIL/MM3 Hemoglobin 9.0 GM/DL Hematocrit 27.3 % Mean Corpuscular Volume 116.3 FL Mean Corpuscular Hemoglobin 38.2 PG Mean Corpuscular Hemoglobin Concent 32.9 % Red Cell Distribution Width 22.3 % Platelet Count 33 TH/MM3 Mean Platelet Volume 9.9 FL Neutrophils (%) (Auto) 67.4 % Lymphocytes (%) (Auto) 17.4 % Monocytes (%) (Auto) 11.4 % Eosinophils (%) (Auto) 3.2 % Basophils (%) (Auto) 0.6 % Neutrophils # (Auto) 2.8 TH/MM3 Lymphocytes # (Auto) 0.7 TH/MM3 Monocytes # (Auto) 0.5 TH/MM3 Eosinophils # (Auto) 0.1 TH/MM3 Basophils # (Auto) 0.0 TH/MM3 CBC Comment AUTO DIFF Differential Total Cells Counted 100 Neutrophils % (Manual) 73 % Band Neutrophils % 1 % Lymphocytes % 12 % Monocytes % 11 % Eosinophils % 3 % Neutrophils # (Manual) 3.1 TH/MM3 Nucleated Red Blood Cells 2 /100 WBC Differential Comment FINAL DIFF MANUAL Platelet Estimate LOW Platelet Morphology Comment NORMAL Ovalocytes 1+ Prothrombin Time 11.8 SEC Prothromb Time International Ratio 1.1 RATIO Blood Urea Nitrogen 21 MG/DL Creatinine 0.64 MG/DL Random Glucose 123 MG/DL Total Protein 4.8 GM/DL Albumin 2.0 GM/DL Calcium Level 6.9 MG/DL Phosphorus Level 0.6 MG/DL Magnesium Level 1.3 MG/DL Alkaline Phosphatase 75 U/L Aspartate Amino Transf (AST/SGOT) 43 U/L Alanine Aminotransferase (ALT/SGPT) 22 U/L Total Bilirubin 0.9 MG/DL Sodium Level 135 MEQ/L Potassium Level 3.9 MEQ/L Chloride Level 106 MEQ/L Carbon Dioxide Level 22.9 MEQ/L Anion Gap 6 MEQ/L Estimat Glomerular Filtration Rate 128 ML/MIN Protein Corrected Calcium 8.1 MG/DL Ammonia 59 MCMOL/L Free Thyroxine 1.08 NG/DL Thyroid Stimulating Hormone 3rd Gen 3.130 uIU/ML Blood Gas Ventilator Setting PRVC/16/550/5/50 Blood Gas Inspired Oxygen 50 % Date/Time Source Procedure Growth Status 04/27/17 14:15 Blood Peripheral Aerobic Blood Culture - Preliminary NO GROWTH IN 1 DAY Resulted 04/27/17 14:15 Blood Peripheral Anaerobic Blood Culture - Preliminary NO GROWTH IN 1 DAY Resulted 04/28/17 14:45 Sputum Endotracheal Gram Stain Pending Received 04/28/17 14:45 Sputum Endotracheal Sputum Culture Pending Received 04/28/17 14:48 Urine Catheterized Urine Legionella Antigen Pending Received 04/28/17 14:48 Urine Catheterized Urine Streptococcus pneumoniae Antigen (M Pending Received Physical Examination HEENT: PERRL; normocephalic; atraumatic; no jaundice. NGT, intubated CHEST: CTA CARDIAC: RRR ABDOMEN: Soft, nondistended, nontender; no hepatosplenomegaly; bowel sounds faint EXTREMITIES: No clubbing, cyanosis, +BUE edema SKIN: Normal; no rash; no jaundice. SENIOR PROCESS CONTROL TECH: sedated on vent (Renee Nieves) Assessment and Plan Plan ASSESSMENT - elevated ammonia - NH 59. CT --> heterogenous appearance liver likely steatosis, small volume free fluid abd and pelvis hx ETOH abuse. AST mildly elevated 43, no other LFT derangement. on lactulose QID, xifaxan BID - anemia - hgb 11.5 on admission has dropped to 9.0 no obvious bleeding - thrombocytopenia - plt 44 on admission - sepsis per CCM, unclear source ?urine cx pending PLAN - continue lactulose - continue xifaxan - monitor ammonia - monitor LFTs - supportive care - further recs to follow This pt seen by myself and DR Ventura and this note is written on his behalf (Renee Nieves) Physician Comments Ammonia elevation possibly secondary to shunting secondary to sepsis Patient seen and examined Agree with above Continue with current supportive care Monitor labs (Arnel Ventura MD) Renee Nieves Apr 28, 2017 17:10 Arnel Ventura MD Apr 28, 2017 21:55
--- NOTE | 2017-04-28 17:48 | RADRPT ---
EXAM DATE/TIME: 04/28/2017 16:47 [facility] COMPARISON: No previous studies available for comparison. INDICATIONS : Bilateral leg swelling. MEDICAL HISTORY : Seizures. Chronic obstructive pulmonary disease. Glasses. Confusion. Weakness. Back pain. SURGICAL HISTORY : Tonsillectomy. ENCOUNTER: Initial ACUITY: 1 day PAIN SCORE: Non-responsive LOCATION: Bilateral legs. TECHNIQUE: Venous ultrasound of the left and right leg was performed from the inguinal ligament to the proximal calf. Real-time, color Doppler and spectral tracing, compression and augmentation techniques were us ed. FINDINGS: RIGHT LEG: There is normal compressibility of the deep venous system from the inguinal region to the proximal ca lf. No echogenic clot is seen in the lumen of the common femoral, femoral, popliteal, and posterior tibial veins. There is a normal response of the venous system to proximal and distal augmentation an d respiration. LEFT LEG: There is normal compressibility of the deep venous system from the inguinal region to the proximal ca lf. No echogenic clot is seen in the lumen of the common femoral, femoral, popliteal, and posterior tibial veins. There is a normal response of the venous system to proximal and distal augmentation an d respiration. CONCLUSION: Negative exam with no evidence of deep venous thrombosis. Johnathon White MD on April 28, 2017 at 17:46 Board Certified Radiologist. This report was verified electronically.
--- NOTE | 2017-04-28 19:36 | RADRPT ---
EXAM DATE/TIME: 04/28/2017 19:08 [facility] COMPARISON: ABDOMEN SINGLE VIEW, April 28, 2017, 8:43. INDICATIONS : Confirm NG tube placement. MEDICAL HISTORY : Chronic obstructive pulmonary disease. Seizures. SURGICAL HISTORY : None. ENCOUNTER: Subsequent ACUITY: 1 day PAIN SCORE: Non-responsive. LOCATION: abdomen. FINDINGS: 2 AP supine views of the abdomen and pelvis were obtained and demonstrate a nasogastric tube in place with the tip projected over the distal esophagus. Side port is projected over the distal esophagus a s well. An endotracheal tube is in place. The bowel gas pattern is unremarkable. The bony structures are intact. There is a right femoral line in place. CONCLUSION: Nasogastric tube with the tip at the level of the distal esophagus. The tube could be advanced at least 10 cm. Johnathon White MD on April 28, 2017 at 19:33 Board Certified Radiologist. This report was verified electronically.
[2017-04-28] MEDS ORDERED: RESP: BUDESONIDE 0.5 MG/2 ML NEB NEB SCH (20:00)
[2017-04-28] MEDS: CHLORHEXIDINE 0.12% (ORAL KIT) 15 ML CUP MT SCH (21:27)
[2017-04-28 21:39] LABS: BICARBONATE 20.8 MEQ/L (21.0-32.0); MAGNESIUM 2.2 MG/DL (1.5-2.5); POTASSIUM 3.5 MEQ/L (3.5-5.1)
[2017-04-28 21:55] LABS: HEMATOCRIT 22.7 % (39.0-51.0); MEAN CELL VOLUME 116.9 FL (80.0-100.0); MEAN CORPUSCULAR HEMOGLOBIN 38.2 PG (27.0-34.0); MEAN CORPUSCULAR HGB CONC 32.7 % (32.0-36.0); RED BLOOD COUNT 1.95 MIL/MM3 (4.50-5.90); RED CELL DISTRIBUTION WIDTH 22.4 % (11.6-17.2); WHITE BLOOD COUNT 3.7 TH/MM3 (4.0-11.0)
[2017-04-28 21:57] LABS: CALCIUM-PROTEIN CORRECTED 8.3 MG/DL (8.5-10.1)
[2017-04-28 21:58] LABS: REVIEW FLAG FINAL
[2017-04-28 22:04] LABS: PLATELET COUNT 19 TH/MM3 (150-450)
[2017-04-28] MEDS ORDERED: SODIUM CHLOR 0.9% 250 ML INJ 250 ML IV ONE (22:45)
[2017-04-28 23:17] LABS: RETIC % 0.7 % (0.4-3.0)
[2017-04-28 23:24] LABS: TRANSFERRIN IRON PROFILE 122 MG/DL (200-360)
[2017-04-28 23:46] LABS: REVIEW FLAG FINAL
[2017-04-28 23:49] LABS: LDH SERUM 166 U/L (87-241)
[2017-04-29] VITALS (25 sets, daily range): BP systolic 108–149; BP diastolic 56–83; PULSE 58–92; RESP 16; TEMP 98.9–99.7; O2SAT 98–100
[2017-04-29] MEDS: SODIUM PHOSPHATE INJ 30 MMOL in SODIUM CHLOR 0.9% 250 ML INJ 240 ML IV PRN (01:03)
[2017-04-29] MEDS: LACTULOSE SYRUP 20 GM/30 ML CUP PO SCH ×4 (02:00→20:00)
[2017-04-29] MEDS: VASOPRESSIN INJ 40 UNITS in DEXTROSE 5% IN WATER 100ML INJ 98 ML IV SCH ×2 (02:35)
[2017-04-29] MEDS: POTASSIUM CHLORIDE INJ 10 MEQ in SODIUM CHLOR 0.9% 1000 ML INJ 1,000 ML IV SCH (02:36)
[2017-04-29] MEDS ORDERED: PHARMACY ORDERED LAB ONE (02:45)
[2017-04-29] MEDS: RESP: ALBUTEROL 2.5 MG/IPRATROPIUM 0.5 MG NEB (SCH) INH ×4 (03:24→21:27)
[2017-04-29] MEDS: CHLORHEXIDINE GLUCONATE 2 % 1 PACK (2 CLOTHS)(taper/protocol) TOPICAL SCH (04:00)
[2017-04-29] MEDS ORDERED: CHLORHEXIDINE GLUCONATE 2 % 1 PACK (2 CLOTHS) TOP SCH (04:00)
[2017-04-29] MEDS: LORazepam 2 MG/ML VIAL IV PUSH PRN ×2 (05:23→22:06)
[2017-04-29] MEDS: PIPERACIL-TAZO 4.5 GM PREMIX 100 ML IV SCH ×4 (06:02→22:06)
[2017-04-29 07:08] LABS: MEAN CELL VOLUME 108.6 FL (80.0-100.0); MEAN CORPUSCULAR HEMOGLOBIN 36.6 PG (27.0-34.0); MEAN CORPUSCULAR HGB CONC 33.7 % (32.0-36.0); PLATELET COUNT 65 TH/MM3 (150-450); RED CELL DISTRIBUTION WIDTH 27.5 % (11.6-17.2); WHITE BLOOD COUNT 4.2 TH/MM3 (4.0-11.0)
[2017-04-29 07:18] LABS: APTT (PATIENT) 31.8 SEC (24.3-30.1); INTERNATIONAL NORMALIZED RATIO 1.1 RATIO; PROTHROMBIN TIME - PATIENT 11.8 SEC (9.8-11.6)
[2017-04-29 07:19] LABS: BICARBONATE 21.4 MEQ/L (21.0-32.0); CALCIUM-PROTEIN CORRECTED 7.8 MG/DL (8.5-10.1); MAGNESIUM 1.5 MG/DL (1.5-2.5); PHENOBARBITAL 15.7 MCG/ML (15.0-40.0); POTASSIUM 3.4 MEQ/L (3.5-5.1); TOTAL BILIRUBIN ADULT 1.8 MG/DL (0.2-1.0)
[2017-04-29 07:29] LABS: HEMO FLAGS AUTO DIFF
[2017-04-29] MEDS: CHLORHEXIDINE 0.12% (ORAL KIT) 15 ML CUP MT SCH ×2 (08:00→23:12)
[2017-04-29] MEDS: PANTOPRAZOLE SODIUM 40 MG VIAL IV PUSH SCH (08:13)
[2017-04-29] MEDS: fentaNYL DRIP 250 ML IV PRN (08:13)
[2017-04-29] MEDS: VANCOMYCIN 1,000 MG/NS 250 ML IV SCH ×4 (08:14→15:00)
[2017-04-29] MEDS: SODIUM CHLORIDE 0.9% FLUSH 10 ML FLUSH IV FLUSH SCH (08:16)
[2017-04-29 08:17] LABS: BANDS 3 % (0-6); BASOPHILS 2 % (0-2); CORRECTED NUCLEATED RBC 3 /100 WBC (0-0); EOSINOPHILS 5 % (0-4); NEUTROPHIL # MANUAL DIFF 2.4 TH/MM3 (1.8-7.7); POLYS (SEG NEUTROPHILS) 55 % (16-70); WBC DIFF SAMPLE 100
[2017-04-29 08:18] LABS: PLATELET ESTIMATE SMEAR LOW (NORMAL); PLATELET MORPHOLOGY NORMAL (NORMAL); SCAN/DIFF FINAL DIFF MANUAL
[2017-04-29] MEDS: RIFAXIMIN 550 MG TAB PO SCH ×2 (08:49→21:00)
[2017-04-29] MEDS: MULTIVITAMIN INJ 10 ML, THIAMINE INJ 100 MG, FOLIC ACID INJ 1 MG in SODIUM CHLORID 0.9%... IV SCH (08:57)
[2017-04-29] MEDS: ARTIFICIAL TEARS OPTH SOLN 15 ML BTL EACH EYE SCH ×3 (08:57→23:11)
[2017-04-29] MEDS: NICOTINE 14 MG/24 HR PATCH T-DERMAL SCH (09:00)
[2017-04-29] MEDS: REMOVE OLD PATCH T-DERMAL SCH (09:00)
--- NOTE | 2017-04-29 10:16 | HHI.CCPN ---
Subjective Remarks/Hospital Course 61yM with h/o prior hepatic encephalopathy, etoh abuse, tobacco abuse, now admitted with weakness, fever, chills, worsening hypotension. called by hospitalist service overnight for clinical decline despite ivf resuscitation. Patient does complain of flank pain, but denies chest pain, abdominal pain. u/a +. started earlier on vanc/zosyn. has not voided. becoming worseningly agitated. unable to provide any additional information due to altered mental status. 04/28: Chart reviewed. Patient still quite agitated stating "I have to pee" patient has a Young catheter. Complaining of flank pain. Noted renal ultrasound negative. Currently on norepinephrine at 12 mg per minute. Subjective 04/29: Resting in bed in no acute distress. Currently on norepinephrine at 7 per minute for vasopressor support. Transfuse 2 units PRBC and 2 pack platelets overnight. Dilutional. Absolutely no signs of active bleeding. Objective Vital Signs Date Time Temp Pulse Resp B/P (MAP) Pulse Ox O2 Delivery O2 Flow Rate FiO2 04/29/17 09:48 100 40 04/29/17 09:15 80 132/62 04/29/17 07:07 99.0 16 04/28/17 01:06 Simple Mask 6.00 Intake and Output 04/29/17 04/29/17 04/30/17 08:00 16:00 00:00 Intake Total 3165 ml Output Total 550 ml Balance 2615 ml Result Diagram: 04/29/17 0629 04/29/17 0629 Other Results Microbiology Date/Time Source Procedure Growth Status 04/27/17 14:15 Blood Peripheral Aerobic Blood Culture - Preliminary NO GROWTH IN 1 DAY Resulted 04/27/17 14:15 Blood Peripheral Anaerobic Blood Culture - Preliminary NO GROWTH IN 1 DAY Resulted 04/28/17 14:45 Sputum Endotracheal Gram Stain - Final Resulted 04/28/17 14:45 Sputum Endotracheal Sputum Culture Pending Resulted 04/28/17 14:48 Urine Catheterized Urine Legionella Antigen Pending Received 04/28/17 14:48 Urine Catheterized Urine Streptococcus pneumoniae Antigen (M Pending Received Imaging Last Impressions Lower Extremity Ultrasound 04/28/17 0000 Signed Impressions: Service Date/Time: Sunday, April 28, 2017 16:47 - CONCLUSION: Negative exam with no evidence of deep venous thrombosis. Johnathon White MD Chest X-Ray 04/28/17 0000 Signed Impressions: Service Date/Time: Friday, April 28, 2017 08:36 - CONCLUSION: 1. Endotracheal tube in appropriate position. However, nasogastric tube tip is in the distal esophagus. Suggest advancement. 2. Persistent left lower lobe airspace opacity. Olu Triana MD Chest CT 04/28/17 0000 Signed Impressions: Service Date/Time: Friday, April 28, 2017 11:03 - CONCLUSION: 1. Small bilateral pleural effusions with atelectasis in both lower lobes. There is also a focal area of groundglass opacity in the lingula that is nonspecific but could represent an infectious or inflammatory process. 2. Moderate size hiatal hernia with dilated and fluid-filled esophagus suggesting gastroesophageal reflux. The nasogastric tube distal tip is in the distal esophagus and should ideally be advanced into the stomach. Olu Triana MD Abdomen/Pelvis CT 04/28/17 0000 Signed Impressions: Service Date/Time: Friday, April 28, 2017 11:03 - CONCLUSION: 1. Small volume of free fluid within the abdomen and pelvis from uncertain etiology. Otherwise, no acute abnormality is identified within the abdomen or pelvis. 2. Nonacute findings include hepatic steatosis, moderate size hiatal hernia, 3 mm nonobstructing right renal stone, and sigmoid diverticulosis. Olu Triana MD Abdomen X-Ray 04/28/17 0000 Signed Impressions: Service Date/Time: Friday, April 28, 2017 19:08 - CONCLUSION: Nasogastric tube with the tip at the level of the distal esophagus. The tube could be advanced at least 10 cm. Johnathon White MD Head CT 04/27/17 1017 Signed Impressions: Service Date/Time: Thursday, April 27, 2017 11:00 - CONCLUSION: 1. No acute intracranial abnormality. 2. Complete opacification left maxillary sinus. Keagan Shipman MD Renal Ultrasound 04/27/17 0000 Signed Impressions: Service Date/Time: Thursday, April 27, 2017 23:50 - CONCLUSION: Negative renal sonogram. Rogerio Gunn MD Objective Remarks GENERAL: 61-year-old male, critically ill currently resting in bed moderately agitated SKIN: Warm and dry. No rash HEAD: Atraumatic. Normocephalic. EYES: Pupils equal and round about 3 mm bilaterally and reactive. No scleral icterus. No injection or drainage. ENT: No nasal bleeding or discharge. Mucous membranes pink and partly moist. Oropharynx without erythema or exudates NECK: Trachea midline. No JVD. CARDIOVASCULAR: RRR. S1, S2 no S4. Without murmur RESPIRATORY: Lungs are essentially clear to auscultation. Positive end expiratory wheeze. GASTROINTESTINAL: Abdomen family distended. Positive right flank pain. No right upper quadrant pain. MUSCULOSKELETAL: Extremities without significant peripheral edema. Patient has a right femoral line in place without hematoma. NEUROLOGICAL: Cranial nerves II through XII grossly intact. Moves all 4 extremities spontaneous. Normal sensation. Date of Insertion: Apr 28, 2017 Line: Central Venous Catheter Side: Right Location: Femoral A/P Assessment and Plan Neuro/Psych: Acute encephalopathy likely secondary to EtOH withdrawal/sepsis/hyperammonia EtOH Patient does drink 1/5 of vodka daily. Currently on fentanyl drip at 100 an hour for analgesia while intubated Goal of RA SS -2 Daily sedation vacation Dexmedetomidine drip if needed to maintain RA SS 0 Thiamine, folate and multivitamin daily via vitamin bag daily since on [place] G -tube Follow-up on ammonia level in AM. - 53 CT brain 04/27 revealed left maxillary sinusitis otherwise no acute intra- cranial findings Patient does have a history of EtOH withdrawal seizures. Seizure precautions Loaded with phenobarbital 1 g 1. Recheck level in a.m. was 15.2 CV: Severe sepsis Lactic acidosis Source of sepsis unclear. Patient does have urine positive for likely infection and CT reveals possible pneumonia. Currently empirically on piperacillin/tazobactam and vancomycin day #3 see ID Currently on norepinephrine at 7 mg per minute to maintain MAP greater than equal to 65 Currently on normal saline with 20 mEq KCl at 125 cc an hour Serial lactates until clear Resp: COPD Ongoing tobaccoism [facility] 16/550// Ventilator bundle Scheduled albuterol/ipratropium aerosols every 6 hours with albuterol aerosols every 2 hours when necessary dyspnea CT thorax 04/28 revealed left lingula infiltrate. Small bilateral pleural effusions. Spontaneous breathing trials when clinically indicated Nicotine patch 14 mg daily. Tobacco cessation education booklet provided with appropriate GI: Hyperammonia - 52 Elevated AST Hypoalbuminemia - mild protein calorie malnutrition Hiatal hernia Sigmoid diverticulosis Hepatic steatosis Unable to fully pass NG tube through hiatal hernia distally. When indicated GI consulted for assistance. Pantoprazole for GI prophylaxis Docusate sodium/senna 1 tablet twice a day for bowel regimen Currently on lactulose 30 cc every 6 hours and Xifaxan 550 mg by mouth twice a day for elevated ammonia. Unable to resume until NG tube position chronically If unable, will consider lactulose enema 1 today : Right kidney nonobstructing stone 3 mm Young catheter has been placed for accurate I's and O's in a critically ill patient Endo: Sliding-scale insulin to maintain euglycemia with Accu-Cheks every 6 hours with low regimen with Novulin R Check TSH was 3.14 Renal: Cystitis? Renal ultrasound revealed no acute findings Monitor urine output Accurate I's and O's Heme: Macrocytic anemia Thrombocytopenia - was 211 //16 Likely secondary to EtOH/chronic liver disease possibility of underlying sepsis There are no signs of consumption or hemolysis. Patient was transfused 2 pack platelets overnight and to PRBC. This is likely likely dilutional patient 6 L positive due to volume resuscitation due to sepsis. No active bleeding. No indications for transfusion of additional blood products at this time. Follow CBC daily. Monitor trends. Check Hemoccult if able. ID: Severe sepsis - unclear source possibly urine Day #3 piperacillin/tazobactam and vancomycin Pertinent cultures Blood cultures 2 -04/27 -no growth to date Urine culture - 04/27 -50 - 100,000 mixed gram-positive Sputum 04/27 - pending Urine pneumococcal and Legionella antigens negative FEN: Hypokalemia Replacing electrolytes per ICU electrolyte protocol. 40 mEq KCl 1 now MSK: PT evaluate and treat Access - Right femoral TLC day 3 placed 04/27 Prophylaxis - GI - pantoprazole - DVT - SCD/no pharmacological prophylaxis in light of thrombocytopenia Critical care time 35 minutes Dallas Webb/mother [phone] is HC proxy. Pt has an ex with 2 sons. One is disabled per Mother. Joseph is the other son and he defers medical decision making to Dallas Webb. Zakia Moore [phone] is pts sister, retired RN. She will be here Sunday. Ray Montes MD Apr 29, 2017 10:16
[2017-04-29] MEDS ORDERED: METHYLNALTREXONE BROMIDE 12 MG/0.6 ML VIAL SQ ONE (10:30)
[2017-04-29] MEDS: AZITHROMYCIN INJ 500 MG in SODIUM CHLOR 0.9% 250 ML INJ 250 ML IV SCH (10:35)
--- NOTE | 2017-04-29 10:54 | HHI.GIFU ---
Subjective Remarks Lying in bed in no apparent distress. RN reports they are unable to get NGT in proper placement secondary to large hiatal hernia. (Susy Deutsch) Objective Vitals I&O Vital Signs Date Time Temp Pulse Resp B/P (MAP) Pulse Ox O2 Delivery O2 Flow Rate FiO2 04/29/17 09:48 100 40 04/29/17 09:15 80 132/62 04/29/17 08:30 82 148/71 04/29/17 08:00 81 148/69 04/29/17 07:29 100 40 04/29/17 07:07 99.0 70 16 141/82 (101) 99 139/67 (91) 04/29/17 07:00 99.0 70 16 149/71 (97) 99 138/67 (90) 04/29/17 06:00 68 04/29/17 04:39 99.2 60 16 127/63 100 04/29/17 04:00 40 04/29/17 04:00 67 04/29/17 03:52 99.4 63 16 120/57 100 04/29/17 03:34 99.4 58 16 130/64 100 04/29/17 03:24 100 40 04/29/17 03:07 99.4 59 16 124/83 (97) 100 125/61 (82) 04/29/17 02:44 99.1 62 16 115/56 100 04/29/17 02:35 61 120/57 04/29/17 02:27 99.4 61 16 124/60 100 04/29/17 02:00 63 04/29/17 00:00 62 04/29/17 00:00 50 04/28/17 23:48 62 135/72 04/28/17 23:07 99.0 85 16 107/73 (84) 100 93/50 (64) 04/28/17 22:00 87 04/28/17 20:00 62 04/28/17 20:00 100 40 04/28/17 20:00 50 04/28/17 19:07 99.6 65 16 112/72 (85) 100 99/53 (68) 04/28/17 18:31 64 16 114/71 (85) 100 110/63 (79) 04/28/17 18:23 77 16 86/62 (70) 100 79/56 (64) 04/28/17 18:15 67 17 112/69 (83) 100 120/61 (80) 04/28/17 18:00 81 16 82/59 (67) 100 95/52 (66) 04/28/17 17:00 68 16 111/79 (90) 100 121/60 (80) 04/28/17 16:45 69 16 112/79 (90) 100 117/58 (77) 04/28/17 16:30 68 11 110/79 (89) 100 118/61 (80) 04/28/17 16:30 69 110/73 04/28/17 16:15 68 16 107/75 (86) 100 118/64 (82) 04/28/17 16:03 100 50 04/28/17 16:01 69 16 110/73 (85) 100 119/66 (83) 04/28/17 16:00 50 04/28/17 16:00 98.5 69 16 119/66 (83) 100 04/28/17 15:46 69 16 110/73 (85) 100 121/67 (85) 04/28/17 15:30 86 16 78/60 (66) 100 85/56 (66) 04/28/17 15:15 69 16 96/68 (77) 100 113/58 (76) 04/28/17 15:00 68 16 103/72 (82) 100 123/64 (83) 04/28/17 14:45 66 16 108/69 (82) 100 123/65 (84) 04/28/17 14:30 65 16 121/81 (94) 100 137/67 (90) 04/28/17 14:15 80 16 113/81 (92) 100 132/68 (89) 04/28/17 14:00 67 16 135/88 (104) 100 146/75 (98) 04/28/17 14:00 72 04/28/17 13:45 71 17 129/87 (101) 100 145/74 (97) 04/28/17 13:30 71 19 135/85 (102) 100 145/75 (98) 04/28/17 13:15 78 21 103/79 (87) 100 128/61 (83) 04/28/17 13:12 77 131/63 04/28/17 13:11 77 128/61 04/28/17 13:01 88 19 116/72 (87) 100 109/58 (75) 04/28/17 13:00 91 18 102/55 (71) 100 04/28/17 12:58 100 50 04/28/17 12:05 97 21 83/56 (65) 99 81/53 (62) 04/28/17 12:00 50 04/28/17 12:00 70 04/28/17 12:00 98.7 98 20 84/62 (69) 100 83/59 (67) 04/28/17 11:49 99 6 78/57 (64) 100 75/48 (57) 04/28/17 11:46 98 17 93/61 (72) 80/51 (61) 04/28/17 11:32 95 50 04/28/17 11:31 87 22 154/68 (96) 127/75 (92) 04/28/17 11:15 96 23 95/70 (78) 93 140/76 (97) 04/28/17 11:00 96 17 107/72 (84) 04/28/17 10:55 95 50 04/28/17 10:30 77 16 120/78 (92) 100 135/80 (98) 04/28/17 10:30 105 145/105 I/O 04/28/17 04/28/17 04/28/17 04/29/17 04/29/17 04/29/17 07:00 15:00 23:00 07:00 15:00 23:00 Intake Total 4650 ml 1825 ml 2250 ml 3415 ml Output Total 425 ml 750 ml 550 ml Balance 4225 ml 1825 ml 1500 ml 2865 ml Intake Oral 200 ml IV Total 4450 ml 1825 ml 2250 ml 750 ml Packed Cells 1800 ml Platelets 775 ml Blood Product IV Normal Saline Flush 90 ml Output Urine Total 425 ml 575 ml 550 ml Stool Total 0 ml Gastric Drainage Total 175 ml # Bowel Movements 0 Laboratory Laboratory Tests Test 04/28/17 20:40 04/29/17 06:20 04/29/17 06:29 White Blood Count 3.7 4.2 Red Blood Count 1.95 2.30 Hemoglobin 7.4 8.4 Hematocrit 22.7 25.0 Mean Corpuscular Volume 116.9 108.6 Mean Corpuscular Hemoglobin 38.2 36.6 Mean Corpuscular Hemoglobin Concent 32.7 33.7 Red Cell Distribution Width 22.4 27.5 Platelet Count 19 65 Mean Platelet Volume 8.8 7.5 Blood Smear Pathologist Review Reticulocyte Count 0.7 Absolute Reticulocyte Count 13.5 Haptoglobin 94 Blood Urea Nitrogen 15 12 Creatinine 0.59 0.60 Random Glucose 162 134 Total Protein 4.7 5.0 Calcium Level 7.0 6.7 Phosphorus Level 1.9 3.5 Magnesium Level 2.2 1.5 Sodium Level 138 140 Potassium Level 3.5 3.4 Chloride Level 108 108 Carbon Dioxide Level 20.8 21.4 Anion Gap 9 11 Estimat Glomerular Filtration Rate 140 137 Lactic Acid Level 1.2 1.7 Protein Corrected Calcium 8.3 7.8 Iron Level 29 Total Iron Binding Capacity 171 Percent Iron Saturation 17.0 Lactate Dehydrogenase 166 Vitamin B12 Level 1298 Folate 13.0 Ammonia 52 CBC Comment AUTO DIFF Differential Total Cells Counted 100 Neutrophils % (Manual) 55 Band Neutrophils % 3 Lymphocytes % 13 Monocytes % 22 Eosinophils % 5 Basophils % 2 Neutrophils # (Manual) 2.4 Nucleated Red Blood Cells 3 Differential Comment FINAL DIFF MANUAL Platelet Estimate LOW Platelet Morphology Comment NORMAL Prothrombin Time 11.8 Prothromb Time International Ratio 1.1 Activated Partial Thromboplast Time 31.8 Fibrinogen 261 Albumin 2.4 Alkaline Phosphatase 66 Aspartate Amino Transf (AST/SGOT) 29 Alanine Aminotransferase (ALT/SGPT) 18 Total Bilirubin 1.8 Total Creatine Kinase 27 Lipase 55 Phenobarbital Level 15.7 Date/Time Source Procedure Growth Status 04/27/17 14:15 Blood Peripheral Aerobic Blood Culture - Preliminary NO GROWTH IN 1 DAY Resulted 04/27/17 14:15 Blood Peripheral Anaerobic Blood Culture - Preliminary NO GROWTH IN 1 DAY Resulted 04/28/17 14:45 Sputum Endotracheal Gram Stain - Final Resulted 04/28/17 14:45 Sputum Endotracheal Sputum Culture Pending Resulted 04/28/17 14:48 Urine Catheterized Urine Legionella Antigen Pending Received 04/28/17 14:48 Urine Catheterized Urine Streptococcus pneumoniae Antigen (M Pending Received Imaging Last Impressions Lower Extremity Ultrasound 04/28/17 0000 Signed Impressions: Service Date/Time: Sunday, April 28, 2017 16:47 - CONCLUSION: Negative exam with no evidence of deep venous thrombosis. Johnathon White MD Chest X-Ray 04/28/17 0000 Signed Impressions: Service Date/Time: Friday, April 28, 2017 08:36 - CONCLUSION: 1. Endotracheal tube in appropriate position. However, nasogastric tube tip is in the distal esophagus. Suggest advancement. 2. Persistent left lower lobe airspace opacity. Olu Triana MD Chest CT 04/28/17 0000 Signed Impressions: Service Date/Time: Friday, April 28, 2017 11:03 - CONCLUSION: 1. Small bilateral pleural effusions with atelectasis in both lower lobes. There is also a focal area of groundglass opacity in the lingula that is nonspecific but could represent an infectious or inflammatory process. 2. Moderate size hiatal hernia with dilated and fluid-filled esophagus suggesting gastroesophageal reflux. The nasogastric tube distal tip is in the distal esophagus and should ideally be advanced into the stomach. Olu Triana MD Abdomen/Pelvis CT 04/28/17 0000 Signed Impressions: Service Date/Time: Friday, April 28, 2017 11:03 - CONCLUSION: 1. Small volume of free fluid within the abdomen and pelvis from uncertain etiology. Otherwise, no acute abnormality is identified within the abdomen or pelvis. 2. Nonacute findings include hepatic steatosis, moderate size hiatal hernia, 3 mm nonobstructing right renal stone, and sigmoid diverticulosis. Olu Triana MD Abdomen X-Ray 04/28/17 0000 Signed Impressions: Service Date/Time: Friday, April 28, 2017 19:08 - CONCLUSION: Nasogastric tube with the tip at the level of the distal esophagus. The tube could be advanced at least 10 cm. Johnathon White MD Head CT 04/27/17 1017 Signed Impressions: Service Date/Time: Thursday, April 27, 2017 11:00 - CONCLUSION: 1. No acute intracranial abnormality. 2. Complete opacification left maxillary sinus. Keagan Shipman MD Renal Ultrasound 04/27/17 0000 Signed Impressions: Service Date/Time: Thursday, April 27, 2017 23:50 - CONCLUSION: Negative renal sonogram. Rogerio Gunn MD Physical Exam HEENT: Normocephalic NECK: Neck is supple CHEST: CTA CARDIAC: RRR with no murmur gallop or rubs. ABDOMEN: Distended. Bowel sounds are present EXTREMITIES: No clubbing, cyanosis, or edema. SKIN: Normal; no rash; no jaundice. (Susy Deutsch) Assessment and Plan Plan ASSESSMENT - Elevated ammonia, with acute encephalopathy. Abdomen CT (04/28/17)--1. Small volume of free fluid within the abdomen and pelvis from uncertain etiology. Otherwise, no acute abnormality is identified within the abdomen or pelvis 2. Nonacute findings include hepatic steatosis, moderate size hiatal hernia, 3 mm nonobstructing right renal stone, and sigmoid diverticulosis. History of ETOH abuse, drinks 1 /5 of vodka daily. Lactulose QID, Xifaxan BID - Anemia, Hgb 11.5 on admission with drop to 9.0, no active bleeding noted. - Thrombocytopenia - Platelets 44 on admission. S/P platelet transfusion. - Sepsis per CCM, unclear source ?urine, cx pending 04/29/17--Ammonia 52. NGT is unable to be placed secondary to large hiatal hernia , so unable to give Lactulose and Xifaxan currently. HH 8.11/28. No active bleeding noted. Urine culture pending. Blood culture x 2 (04/27), no growth in 1 day. AST/ALT normal. Platelets 19 (04/28), s/p platelet transfusion, 65 today. PLAN - Possible EGD tomorrow - NPO after MN - Obtain consents - Monitor ammonia - Monitor LFTs - Continue PPI - Resume Lactulose and Xifaxan when able - Agree with lactulose enema x 1 today if needed - Supportive care - Further recommendations to follow based on results of above. Patient seen and examined by Dr. Ventura and myself and this note is written on his behalf. (Susy Deutsch) Physician Comments Patient seen and examined Agree with above Continue with current supportive care And monitor labs We will proceed with an EGD tomorrow I did discuss this option with the patient' s mother and she is agreeable (Arnel Ventura MD) Susy Deutsch Apr 29, 2017 10:54 Arnel Ventura MD Apr 29, 2017 22:15
[2017-04-29] MEDS ORDERED: POTASSIUM CHLOR 40 MEQ PREMIX 100 ML IV ONE (11:00)
[2017-04-29 11:22] LABS: HEMOGLOBIN A1a 0.9 %; HEMOGLOBIN A1b 1.6 %; HEMOGLOBIN Ao 83.7 %; HEMOGLOBIN LA1C 2.4 %; HEMOGLOBIN P3 3.9 %
[2017-04-29] MEDS ORDERED: CALCIUM GLUCONATE INJ 1 GM in SODIUM CHLORIDE 0.9% INJ 100 ML IV ONE (12:00)
[2017-04-29] MEDS: MAGNESIUM SULFATE 1 GM PREMIX 100 ML IV SCH ×2 (12:13→12:24)
--- NOTE | 2017-04-29 14:43 | ECHRPT ---
Indication: ef assessment of chf CONCLUSIONS Limited echo (for LVEF) Normal left ventricular size and wall thickness. The left ventricular systolic function is normal wi th an estimated ejection fraction in the range of 60-65%. No major valvular disorder seen in this limited study. BP: 127 / 63 HR: 100 Rhythm: Sinus MEASUREMENTS (Male / Female) Normal Values Technical Quality:Good 2D ECHO LV Diastolic Diameter PLAX 5.3 cm 4.2 - 5.9 / 3.9 - 5.3 cm LV Systolic Diameter PLAX 3.4 cm IVS Diastolic Thickness 1.0 cm 0.6 - 1.0 / 0.6 - 0.9 cm LVPW Diastolic Thickness 1.0 cm 0.6 - 1.0 / 0.6 - 0.9 cm LV Relative Wall Thickness 0.4 LV Ejection Fraction MOD 4C 64.0 % LV Cardiac Index MOD 4C 2834.8 cm/minm LV Ejection Fraction 4C AL 65.8 % LV Cardiac Index 4C AL 3003.2 cm/minm M-MODE LV Diastolic Diameter MM 7.1 cm 4.2 - 5.9 / 3.9 - 5.3 cm LV Systolic Diameter MM 4.7 cm LV Ejection Fraction MM Teich 59.9 % LV Cardiac Index MM Teich 7757.3 cm/minm IVS Diastolic Thickness MM 1.3 cm 0.6 - 1.0 / 0.6 - 0.9 cm LVPW Diastolic Thickness MM 1.3 cm 0.6 - 1.0 / 0.6 - 0.9 cm LV Relative Wall Thickness MM 0.4 0.24 - 0.42 / 0.22 - 0.42 LV Mass Index MM 218.8 g/m 49 - 115 / 43 - 95 g/m FINDINGS LEFT VENTRICLE Normal left ventricular size and wall thickness. The left ventricular systolic function is normal wi th an estimated ejection fraction in the range of 60-65%. Gavin Osuna MD (Electronically Signed) Final Date:29 April 2017 14:41
[2017-04-29] MEDS ORDERED: PROPOFOL 500 MG/50 ML INJ 50 ML ONE (15:32)
[2017-04-29] MEDS ORDERED: SODIUM CHLORIDE 0.9% FLUSH 10 ML FLUSH IVF PRN (15:45)
[2017-04-29] MEDS: SODIUM CHLORIDE 0.9% FLUSH 10 ML FLUSH IVF SCH (15:45)
--- NOTE | 2017-04-29 15:49 | PD.PROCEDR ---
Central Line Procedure REASON FOR PROCEDURE Central venous access PROCEDURE PERFORMED Central line placement: Right internal jugular vein CONSENT Informed consent for procedure was obtained Dallas Webb. The risks and benefits of the procedure were discussed to include but limited to bleeding, clot formation, infection, and even . ANESTHESIA Local injection of 1% Lidocaine DESCRIPTION OF THE PROCEDURE The patient was placed in supine, mild Trendelenburg position. The area was exposed and cleansed with ChloraPrep, times two. Large sterile drape was used to cover the patient, with the site exposed, under sterile conditions including cap, face mask, sterile gown, and sterile gloves. On single attempt, the introducer needle was inserted with negative pressure in syringe and venous flash was obtained. The guide wire was then advanced without any restriction and the needle was removed. The dilator was used without any complications. Using Seldinger technique the triple-lumen catheter was advanced over the guide wire to a depth of 16 centimeters. The guide wire was removed. All ports were aspirated with dark venous blood return and flushed easily with sterile saline. All ports were capped. Antibiotic disc was placed around central line at puncture site. The central line was secured to the skin with two interrupted 2.0 silk sutures. The area was bandaged with sterile see-through central line bandage. RADIOLOGICAL DATA Ultrasound guidance was used to locate right internal jugular vein. Doppler/ color flow was used to confirm venous flow. COMPLICATIONS: No apparent complications ESTIMATED BLOOD LOSS: Less than 1 cc. Ray Montes MD Apr 29, 2017 15:49
--- NOTE | 2017-04-29 16:17 | RADRPT ---
EXAM DATE/TIME: 04/29/2017 15:56 [facility] COMPARISON: CHEST SINGLE AP, April 28, 2017, 8:36. INDICATIONS : Right I-J central line placement. MEDICAL HISTORY : Chronic obstructive pulmonary disease. Seizures SURGICAL HISTORY : None. ENCOUNTER: Subsequent ACUITY: 3 days PAIN SCORE: Non-responsive. LOCATION: Right chest FINDINGS: A single AP semierect view of the chest was obtained and demonstrate an endotracheal tube in place wi th the tip approximately 3cm above the hoda. The nasogastric tube has been advanced with the tip pr ojecting over the distal esophagus and the side-port also projected over the distal esophagus. This c ould be advanced approximately 7 cm. There has been interval placement of a right internal jugular ce ntral venous line with the tip projected over the superior vena cava. There is no pneumothorax. A ski nfold is noted projected over the right chest wall. There is no subcutaneous emphysema. Consolidation remains at the left lung base with air bronchograms and partial obscuration of the left hemidiaphrag m. The left costophrenic angle remains mildly blunted. CONCLUSION: 1. Interval placement of right internal jugular central venous line with no pneumothorax. 2. The nasogastric tube has been advanced slightly but still resides in the distal esophagus. This co uld be advanced proximally 7 cm. 3. Consolidation remains at the left lung base with small left effusion. Johnathon White MD on April 29, 2017 at 16:12 Board Certified Radiologist. This report was verified electronically.
[2017-04-29] MEDS: NOREPINEPHRINE INJ 4 MG in SODIUM CHLOR 0.9% 250 ML INJ 246 ML IV PRN (22:07)
[2017-04-30] VITALS (24 sets, daily range): BP systolic 92–131; BP diastolic 58–85; PULSE 68–107; RESP 16–23; TEMP 98.1–99.1; O2SAT 97–100
[2017-04-30] MEDS: NOREPINEPHRINE INJ 4 MG in SODIUM CHLOR 0.9% 250 ML INJ 246 ML IV PRN ×2 (00:04→12:15)
[2017-04-30] MEDS: VANCOMYCIN 1,000 MG/NS 250 ML IV SCH ×4 (01:20→15:00)
[2017-04-30] MEDS: LACTULOSE SYRUP 20 GM/30 ML CUP PO SCH ×3 (02:00→13:40)
[2017-04-30] MEDS: CHLORHEXIDINE GLUCONATE 2 % 1 PACK (2 CLOTHS)(taper/protocol) TOPICAL SCH (04:00)
[2017-04-30] MEDS: POTASSIUM CHLORIDE INJ 10 MEQ in SODIUM CHLOR 0.9% 1000 ML INJ 1,000 ML IV SCH (04:20)
[2017-04-30] MEDS: RESP: ALBUTEROL 2.5 MG/IPRATROPIUM 0.5 MG NEB (SCH) INH ×4 (04:47→21:14)
[2017-04-30] MEDS: PIPERACIL-TAZO 4.5 GM PREMIX 100 ML IV SCH ×3 (05:03→18:00)
[2017-04-30] MEDS: ARTIFICIAL TEARS OPTH SOLN 15 ML BTL EACH EYE SCH ×3 (05:03→22:00)
[2017-04-30] MEDS: LORazepam 2 MG/ML VIAL IV PUSH PRN (05:39)
[2017-04-30 05:48] LABS: HEMATOCRIT 26.9 % (39.0-51.0); MEAN CELL VOLUME 109.1 FL (80.0-100.0); PLATELET COUNT 51 TH/MM3 (150-450); RED BLOOD COUNT 2.47 MIL/MM3 (4.50-5.90); RED CELL DISTRIBUTION WIDTH 27.5 % (11.6-17.2); WHITE BLOOD COUNT 4.7 TH/MM3 (4.0-11.0)
[2017-04-30 06:00] LABS: HEMO FLAGS AUTO DIFF
[2017-04-30 06:19] LABS: BICARBONATE 22.7 MEQ/L (21.0-32.0); CALCIUM-PROTEIN CORRECTED 8.4 MG/DL (8.5-10.1); MAGNESIUM 1.4 MG/DL (1.5-2.5); POTASSIUM 3.8 MEQ/L (3.5-5.1); TOTAL BILIRUBIN ADULT 1.6 MG/DL (0.2-1.0)
[2017-04-30] MEDS ORDERED: PHENYLEPH/NS 1000 MCG/10 ML SYR IV ONE ×2 (08:01→11:07)
[2017-04-30] MEDS ORDERED: PROPOFOL 200 MG/20 ML AMP IV ONE ×2 (08:01→11:07)
[2017-04-30] MEDS: MULTIVITAMIN INJ 10 ML, THIAMINE INJ 100 MG, FOLIC ACID INJ 1 MG in SODIUM CHLORID 0.9%... IV SCH (08:10)
[2017-04-30] MEDS: NICOTINE 14 MG/24 HR PATCH T-DERMAL SCH (08:10)
[2017-04-30] MEDS: SODIUM PHOSPHATE INJ 30 MMOL in SODIUM CHLOR 0.9% 250 ML INJ 240 ML IV PRN (08:10)
[2017-04-30] MEDS: REMOVE OLD PATCH T-DERMAL SCH (08:10)
[2017-04-30] MEDS: SODIUM CHLORIDE 0.9% FLUSH 10 ML FLUSH IVF SCH (08:11)
[2017-04-30] MEDS: PANTOPRAZOLE SODIUM 40 MG VIAL IV PUSH SCH (08:11)
[2017-04-30] MEDS: RIFAXIMIN 550 MG TAB PO SCH (08:11)
[2017-04-30] MEDS: CHLORHEXIDINE 0.12% (ORAL KIT) 15 ML CUP MT SCH ×2 (08:12→20:00)
[2017-04-30 08:27] LABS: CORRECTED NUCLEATED RBC 3 /100 WBC (0-0); EOSINOPHILS 5 % (0-4); NEUTROPHIL # MANUAL DIFF 3.1 TH/MM3 (1.8-7.7); POLYS (SEG NEUTROPHILS) 67 % (16-70); WBC DIFF SAMPLE 100
[2017-04-30 08:28] LABS: PLATELET ESTIMATE SMEAR LOW (NORMAL); PLATELET MORPHOLOGY NORMAL (NORMAL)
[2017-04-30 08:29] LABS: KERATOCYTES OCC (NORMAL); OVALOCYTES 1+ (NORMAL); SCAN/DIFF FINAL DIFF MANUAL
[2017-04-30] MEDS: PANTOPRAZOLE SOD 40 MG DELAYED RELEASE TAB PO SCH (09:00)
[2017-04-30] MEDS: GABAPENTIN 300 MG CAP PO SCH ×3 (09:00→17:58)
[2017-04-30] MEDS: DOCUSATE SODIUM 50 MG/SENNA 8.6 MG TAB PO SCH (09:00)
[2017-04-30] MEDS: VASOPRESSIN INJ 40 UNITS in DEXTROSE 5% IN WATER 100ML INJ 98 ML IV SCH ×2 (09:08)
--- NOTE | 2017-04-30 09:11 | HHI.CCPN ---
Subjective Remarks/Hospital Course 61yM with h/o prior hepatic encephalopathy, etoh abuse, tobacco abuse, now admitted with weakness, fever, chills, worsening hypotension. called by hospitalist service overnight for clinical decline despite ivf resuscitation. Patient does complain of flank pain, but denies chest pain, abdominal pain. u/a +. started earlier on vanc/zosyn. has not voided. becoming worseningly agitated. unable to provide any additional information due to altered mental status. 04/28: Chart reviewed. Patient still quite agitated stating "I have to pee" patient has a Young catheter. Complaining of flank pain. Noted renal ultrasound negative. Currently on norepinephrine at 12 mg per minute. Subjective 04/29: Resting in bed in no acute distress. Currently on norepinephrine at 7 per minute for vasopressor support. Transfuse 2 units PRBC and 2 pack platelets overnight. Dilutional. Absolutely no signs of active bleeding. 04/30 Patient is sedated with Fentanyl and intubated. On Levophed 5 mics. Afebrile. For EGD today. Objective Vital Signs Date Time Temp Pulse Resp B/P (MAP) Pulse Ox O2 Delivery O2 Flow Rate FiO2 04/30/17 08:52 100 40 04/30/17 06:00 81 04/30/17 03:07 99.0 16 122/83 (96) 127/71 (89) 04/28/17 01:06 Simple Mask 6.00 Intake and Output 04/30/17 04/30/17 05/01/17 08:00 16:00 00:00 Intake Total 1850 ml Output Total 450 ml Balance 1400 ml Result Diagram: 04/30/17 0434 04/30/17 0434 Other Results Laboratory Tests Test 04/29/17 16:00 04/30/17 04:34 Magnesium Level 1.7 MG/DL 1.4 MG/DL White Blood Count 4.7 TH/MM3 Red Blood Count 2.47 MIL/MM3 Hemoglobin 8.9 GM/DL Hematocrit 26.9 % Mean Corpuscular Volume 109.1 FL Mean Corpuscular Hemoglobin 36.0 PG Mean Corpuscular Hemoglobin Concent 33.0 % Red Cell Distribution Width 27.5 % Platelet Count 51 TH/MM3 Mean Platelet Volume 8.6 FL CBC Comment AUTO DIFF Differential Total Cells Counted 100 Neutrophils % (Manual) 67 % Lymphocytes % 10 % Monocytes % 18 % Eosinophils % 5 % Neutrophils # (Manual) 3.1 TH/MM3 Nucleated Red Blood Cells 3 /100 WBC Differential Comment FINAL DIFF MANUAL Platelet Estimate LOW Platelet Morphology Comment NORMAL Ovalocytes 1+ Keratocytes OCC Blood Urea Nitrogen 7 MG/DL Creatinine 0.48 MG/DL Random Glucose 81 MG/DL Total Protein 4.6 GM/DL Albumin 1.9 GM/DL Calcium Level 7.0 MG/DL Phosphorus Level 1.8 MG/DL Alkaline Phosphatase 64 U/L Aspartate Amino Transf (AST/SGOT) 28 U/L Alanine Aminotransferase (ALT/SGPT) 18 U/L Total Bilirubin 1.6 MG/DL Sodium Level 141 MEQ/L Potassium Level 3.8 MEQ/L Chloride Level 111 MEQ/L Carbon Dioxide Level 22.7 MEQ/L Anion Gap 7 MEQ/L Estimat Glomerular Filtration Rate 178 ML/MIN Protein Corrected Calcium 8.4 MG/DL Imaging Last Impressions Chest X-Ray 04/29/17 1543 Signed Impressions: Service Date/Time: Saturday, April 29, 2017 15:56 - CONCLUSION: 1. Interval placement of right internal jugular central venous line with no pneumothorax. 2. The nasogastric tube has been advanced slightly but still resides in the distal esophagus. This could be advanced proximally 7 cm. 3. Consolidation remains at the left lung base with small left effusion. Johnathon White MD Lower Extremity Ultrasound 04/28/17 0000 Signed Impressions: Service Date/Time: Friday, April 28, 2017 16:47 - CONCLUSION: Negative exam with no evidence of deep venous thrombosis. Johnathon White MD Chest CT 04/28/17 0000 Signed Impressions: Service Date/Time: Friday, April 28, 2017 11:03 - CONCLUSION: 1. Small bilateral pleural effusions with atelectasis in both lower lobes. There is also a focal area of groundglass opacity in the lingula that is nonspecific but could represent an infectious or inflammatory process. 2. Moderate size hiatal hernia with dilated and fluid-filled esophagus suggesting gastroesophageal reflux. The nasogastric tube distal tip is in the distal esophagus and should ideally be advanced into the stomach. Olu Triana MD Abdomen/Pelvis CT 04/28/17 0000 Signed Impressions: Service Date/Time: Friday, April 28, 2017 11:03 - CONCLUSION: 1. Small volume of free fluid within the abdomen and pelvis from uncertain etiology. Otherwise, no acute abnormality is identified within the abdomen or pelvis. 2. Nonacute findings include hepatic steatosis, moderate size hiatal hernia, 3 mm nonobstructing right renal stone, and sigmoid diverticulosis. Olu Triana MD Abdomen X-Ray 04/28/17 0000 Signed Impressions: Service Date/Time: Friday, April 28, 2017 19:08 - CONCLUSION: Nasogastric tube with the tip at the level of the distal esophagus. The tube could be advanced at least 10 cm. Johnathon White MD Head CT 04/27/17 1017 Signed Impressions: Service Date/Time: Thursday, April 27, 2017 11:00 - CONCLUSION: 1. No acute intracranial abnormality. 2. Complete opacification left maxillary sinus. Keagan Shipman MD Renal Ultrasound 04/27/17 0000 Signed Impressions: Service Date/Time: Thursday, April 27, 2017 23:50 - CONCLUSION: Negative renal sonogram. Rogerio Gunn MD Objective Remarks GENERAL: Patient is 61 intubated and sedated SKIN: Warm and dry. HEAD: Normocephalic. EYES: No scleral icterus. No injection or drainage. NECK: Supple, trachea midline. No JVD or lymphadenopathy. CARDIOVASCULAR: Regular rate and rhythm without murmurs, gallops, or rubs. RESPIRATORY: Breath sounds equal bilaterally. No accessory muscle use. GASTROINTESTINAL: Abdomen soft, non-tender, nondistended. MUSCULOSKELETAL: No cyanosis, or edema. Neuro: Sedated. Date of Insertion: Apr 28, 2017 Line: Central Venous Catheter Side: Right Location: Femoral A/P Assessment and Plan Neuro/Psych: Acute encephalopathy likely secondary to EtOH withdrawal/sepsis/hyperammonia EtOH Patient does drink 1/5 of vodka daily. Currently on fentanyl drip at 100 an hour for analgesia while intubated Goal of RA SS -2 Daily sedation vacation Dexmedetomidine drip if needed to maintain RA SS 0 Thiamine, folate and multivitamin daily Follow-up on ammonia level CT brain 04/27 revealed left maxillary sinusitis otherwise no acute intra- cranial findings Patient does have a history of EtOH withdrawal seizures. Seizure precautions Loaded with phenobarbital 1 g 1. Level: 15.7 CV: Severe sepsis Lactic acidosis- cleared Wean Off Levophed ( on 5 mics) monitor HR and BP keep MAP>65mmHg Lactic acid 1.7 04/29 Resp: COPD Ongoing tobaccoism PRVC 16550/08/10/39 Ventilator bundle Scheduled albuterol/ipratropium aerosols every 6 hours with albuterol aerosols every 2 hours when necessary dyspnea CT thorax 04/28 revealed left lingula infiltrate. Small bilateral pleural effusions. Spontaneous breathing trials when clinically indicated Nicotine patch 14 mg daily. GI: Hyperammonia - 52 Elevated AST Hypoalbuminemia - mild protein calorie malnutrition Hiatal hernia Sigmoid diverticulosis Hepatic steatosis For EGD today Pantoprazole for GI prophylaxis Docusate sodium/senna 1 tablet twice a day for bowel regimen Currently on lactulose 30 cc every 6 hours and Xifaxan 550 mg by mouth twice a day for elevated ammonia. U : Right kidney nonobstructing stone 3 mm Renal ultrasound revealed no acute findings Monitor renal function, I/O's, electrolytes replacement per protocol. Will need Phos, Mag replacement today. Diurese with Bumex 1mg x1 Endo: Sliding-scale insulin to maintain euglycemia with Accu-Cheks every 6 hours with low regimen with Novulin R TSH: 3.14 04/28 Heme: Macrocytic anemia Thrombocytopenia - was 211 //16 Likely secondary to EtOH/chronic liver disease possibility of underlying sepsis There are no signs of consumption or hemolysis. Patient was transfused 2 pack platelets and 2 PRBC. Follow CBC daily. Monitor trends. For EGD today ID: Severe sepsis - unclear source possibly urine Continue abx( piperacillin/tazobactam, Azithromycin and vancomycin)monitor for signs of infections ( Fever, WBC) Pertinent cultures Blood cultures 2 -04/27 -no growth to date Urine culture - 04/27 -50 - 100,000 mixed gram-positive Sputum 04/27 - pending Urine pneumococcal and Legionella antigens negative MSK: PT evaluate and treat Access - Right femoral TLC day 3 placed 04/27 Prophylaxis - GI - pantoprazole - DVT - SCD/no pharmacological prophylaxis in light of thrombocytopenia Critical care time 30 minutes Dallas Webb/mother [phone] is HC proxy. Pt has an ex with 2 sons. One is disabled per Mother. Joseph is the other son and he defers medical decision making to Dallas Webb. Zakia Moore [phone] is pts sister, retired RN. She will be here Sunday. Don Rod MD Apr 30, 2017 09:11
[2017-04-30] MEDS: MULTIVITAMIN TAB PO SCH (09:15)
[2017-04-30] MEDS: FOLIC ACID 1 MG TAB PO SCH (09:15)
[2017-04-30] MEDS ORDERED: BUMETANIDE INJ 1 MG/4 ML VIAL IV PUSH ONE (09:15)
[2017-04-30] MEDS: THIAMINE HCL 100 MG TAB PO SCH (09:15)
[2017-04-30] MEDS: AZITHROMYCIN INJ 500 MG in SODIUM CHLOR 0.9% 250 ML INJ 250 ML IV SCH (10:23)
--- NOTE | 2017-04-30 11:15 | HHI.GIFU ---
Subjective Remarks Resting in bed. Sedated on ventilator. Abdomen slightly distended, no BM per nurse. Nurse reports that patient is going to IR to have NGT/OGT placed/ advanced today because it was not visualized with large HH. Scheduled for EGD today, will d/w Dr. Moses if he could place endoscopically at time of EGD (Kathrin Carreno) Objective Vitals I&O Vital Signs Date Time Temp Pulse Resp B/P (MAP) Pulse Ox O2 Delivery O2 Flow Rate FiO2 04/30/17 08:52 100 40 04/30/17 06:00 81 04/30/17 04:00 40 04/30/17 04:00 79 04/30/17 03:07 99.0 78 16 122/83 (96) 100 127/71 (89) 04/30/17 02:00 74 04/30/17 00:04 71 134/70 04/30/17 00:00 40 04/30/17 00:00 68 04/29/17 23:07 98.9 72 16 119/81 (94) 99 128/69 (88) 04/29/17 22:07 74 122/65 04/29/17 22:00 76 04/29/17 21:27 99 40 04/29/17 20:00 40 04/29/17 20:00 67 04/29/17 19:07 99.4 71 16 138/83 (101) 100 132/68 (89) 04/29/17 16:16 100 40 04/29/17 16:00 40 04/29/17 15:07 99.4 87 16 108/60 (76) 98 04/29/17 12:00 40 04/29/17 11:07 99.7 72 16 127/67 (87) 100 I/O 04/29/17 04/29/17 04/29/17 04/30/17 04/30/17 04/30/17 07:00 15:00 23:00 07:00 15:00 23:00 Intake Total 3415 ml 4022 ml 1950 ml 571 ml Output Total 550 ml 575 ml 450 ml Balance 2865 ml 3447 ml 1500 ml 571 ml IV Total 750 ml 4022 ml 1950 ml 571 ml Packed Cells 1800 ml Platelets 775 ml Blood Product IV Normal Saline Flush 90 ml Output Urine Total 550 ml 575 ml 450 ml Laboratory Laboratory Tests Test 04/29/17 16:00 04/30/17 04:34 04/30/17 09:40 Magnesium Level 1.7 1.4 White Blood Count 4.7 Red Blood Count 2.47 Hemoglobin 8.9 Hematocrit 26.9 Mean Corpuscular Volume 109.1 Mean Corpuscular Hemoglobin 36.0 Mean Corpuscular Hemoglobin Concent 33.0 Red Cell Distribution Width 27.5 Platelet Count 51 Mean Platelet Volume 8.6 CBC Comment AUTO DIFF Differential Total Cells Counted 100 Neutrophils % (Manual) 67 Lymphocytes % 10 Monocytes % 18 Eosinophils % 5 Neutrophils # (Manual) 3.1 Nucleated Red Blood Cells 3 Differential Comment FINAL DIFF MANUAL Platelet Estimate LOW Platelet Morphology Comment NORMAL Ovalocytes 1+ Keratocytes OCC Blood Urea Nitrogen 7 Creatinine 0.48 Random Glucose 81 Total Protein 4.6 Albumin 1.9 Calcium Level 7.0 Phosphorus Level 1.8 Alkaline Phosphatase 64 Aspartate Amino Transf (AST/SGOT) 28 Alanine Aminotransferase (ALT/SGPT) 18 Total Bilirubin 1.6 Sodium Level 141 Potassium Level 3.8 Chloride Level 111 Carbon Dioxide Level 22.7 Anion Gap 7 Estimat Glomerular Filtration Rate 178 Protein Corrected Calcium 8.4 Ammonia 53 Date/Time Source Procedure Growth Status 04/27/17 14:15 Blood Peripheral Aerobic Blood Culture - Preliminary NO GROWTH IN 2 DAYS Resulted 04/27/17 14:15 Blood Peripheral Anaerobic Blood Culture - Preliminary NO GROWTH IN 2 DAYS Resulted 04/28/17 14:45 Sputum Endotracheal Gram Stain - Final Complete 04/28/17 14:45 Sputum Endotracheal Sputum Culture - Final LIGHT GROWTH NORMAL RESPIRATORY ANDREA Complete 04/28/17 14:48 Urine Catheterized Urine Legionella Antigen - Final PRESUMPTIVE NEGATIVE FOR LEGIONELLA P... Complete 04/28/17 14:48 Urine Catheterized Urine Streptococcus pneumoniae Antigen (M - Final PRESUMPTIVE NEGATIVE FOR STREPTOCOCCU... Complete Imaging Last Impressions Chest X-Ray 04/29/17 1543 Signed Impressions: Service Date/Time: Saturday, April 29, 2017 15:56 - CONCLUSION: 1. Interval placement of right internal jugular central venous line with no pneumothorax. 2. The nasogastric tube has been advanced slightly but still resides in the distal esophagus. This could be advanced proximally 7 cm. 3. Consolidation remains at the left lung base with small left effusion. Johnathon White MD Lower Extremity Ultrasound 9/23/17 0000 Signed Impressions: Service Date/Time: Friday, April 28, 2017 16:47 - CONCLUSION: Negative exam with no evidence of deep venous thrombosis. Johnathon White MD Chest CT 04/28/17 Signed Impressions: Service Date/Time: Friday, April 28, 2017 11:03 - CONCLUSION: 1. Small bilateral pleural effusions with atelectasis in both lower lobes. There is also a focal area of groundglass opacity in the lingula that is nonspecific but could represent an infectious or inflammatory process. 2. Moderate size hiatal hernia with dilated and fluid-filled esophagus suggesting gastroesophageal reflux. The nasogastric tube distal tip is in the distal esophagus and should ideally be advanced into the stomach. Olu Triana MD Abdomen/Pelvis CT 04/28/17 Signed Impressions: Service Date/Time: Friday, April 28, 2017 11:03 - CONCLUSION: 1. Small volume of free fluid within the abdomen and pelvis from uncertain etiology. Otherwise, no acute abnormality is identified within the abdomen or pelvis. 2. Nonacute findings include hepatic steatosis, moderate size hiatal hernia, 3 mm nonobstructing right renal stone, and sigmoid diverticulosis. Olu Triana MD Abdomen X-Ray 04/28/17 Signed Impressions: Service Date/Time: Friday, April 28, 2017 19:08 - CONCLUSION: Nasogastric tube with the tip at the level of the distal esophagus. The tube could be advanced at least 10 cm. Johnathon White MD Head CT 04/27/17 1017 Signed Impressions: Service Date/Time: Thursday, April 27, 2017 11:00 - CONCLUSION: 1. No acute intracranial abnormality. 2. Complete opacification left maxillary sinus. Keagan Shipman MD Renal Ultrasound 04/27/17 0000 Signed Impressions: Service Date/Time: Thursday, April 27, 2017 23:50 - CONCLUSION: Negative renal sonogram. Rogerio Gunn MD Physical Exam HEENT: Normocephalic CHEST: OETT to vent. Clear with bases diminished. CTA CARDIAC: Regular, mildly tachycardic 102 ABDOMEN: Soft, mildly distended, hypoactive bowel sounds, EXTREMITIES: Generalized edema. SKIN: Sedated on ventilator. (Kathrin Carreno) Assessment and Plan Plan ASSESSMENT - Anemia, macrocytic. S/P 2 units RBC, 2 units Platelets. Vitamin B12 1298. HH 8.9/26.9. - Large HH. Pt has NGT, but was not visualized on imaging. Nurse reports that patient is going to IR to have NGT/OGT placed/advanced, will d/w Dr. Moses to see if this is something he could do at time of procedure. - Elevated ammonia, acute encephalopathy. Ammonia 53. Lactulose, Xifaxan. - Constipation/Ileus. Abdomen CT (04/28/17)--1. Small volume of free fluid within the abdomen and pelvis from uncertain etiology. Otherwise, no acute abnormality is identified within the abdomen or pelvis 2. Nonacute findings include hepatic steatosis, moderate size hiatal hernia, 3 mm nonobstructing right renal stone, and sigmoid diverticulosis. No BM in several days. Getting Lactulose. On Azithromycin, which theoretically, should help with gastric motility as well. Reglan. - Elevated bilirubin. CT as above. History of ETOH abuse, drinks 1/5 of vodka daily. T. Bili 1.6, AST 28, ALT 18, ALk Phopsh 64. Hypoalbuminemia with albumin 1.9. Plt 51,000, mild coagulopathy. Suspect liver cirrhosis, likely secondary to alcohol, fatty liver disease. - Thrombocytopenia. Platelets 51 on admission. S/P 2 platelet transfusion. - Sepsis, unclear source. Urine negative for legionella, streptococcus, sputum cx with light growth normal respiratory andrea. CT reveals possible pneumonia. - Respiratory failure, COPD. Vent per [facility]. PLAN - Plan for EGD today. - Obtain consents - NPO - Increase Lactulose to q4h today - Cont. Xifaxan - Cont. PPI - Cont. Reglan - On Azithromycin, which should also help with gastric motility. - Monitor CBC, LFTs, INR - Supportive care - Consider SSE if no response to increased dosage of lactulose - Further recommendations to follow based on results of above. - Patient seen and examined by Dr. Ventura and myself and this note is written on his behalf. 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
[2017-04-30] MEDS: fentaNYL DRIP 250 ML IV PRN (12:13)
--- NOTE | 2017-04-30 13:53 | PD.PROCEDR ---
GI Procedure PROCEDURE PERFORMED EGD with biopsy, foreign body removal INDICATION FOR PROCEDURE Dysphagia, anemia PROCEDURE: The procedure, risks and benefits were discussed with Mr. Pittman and informed consent was obtained. Anesthesia sedated him with Diprivan. He was placed in the left lateral decubitus position. EGD: The Pentax videoscope was introduced through the oropharynx and advanced to the second portion of the duodenum under direct visualization. Retroflexion was performed in the stomach biopsy from the distal esophagus from what to look like Martinez esophagus was done, there was food and pills in the distal esophagus this was removed by pushing it into the stomach, gastritis biopsy was done. FINDINGS: Food impaction in the distal esophagus removed Esophagitis with this biopsy was done at 32 and 34 cm Gastritis biopsy from the antrum ESTIMATED BLOOD LOSS: None SPECIMENS REMOVED: Esophagus, antrum COMPLICATIONS: None Martinez esophagus Esophagitis Gastritis Foreign body in the distal esophagus PLAN: Start PPI Follow-up biopsy Resume tube feeding Jassi Moses MD Apr 30, 2017 13:53
[2017-04-30] MEDS ORDERED: LACTATED RINGER'S 1000 ML INJ 1,000 ML IV ONE (14:00)
[2017-04-30] MEDS: MAGNESIUM SULFATE INJ 2 GM in SODIUM CHLORIDE 0.9% INJ 96 ML IV PRN (14:31)
[2017-05-01] VITALS (38 sets, daily range): BP systolic 82–144; BP diastolic 55–133; PULSE 84–122; RESP 10–20; TEMP 98.2–98.7; O2SAT 91–100
[2017-05-01] MEDS: RIFAXIMIN 550 MG TAB PO SCH ×3 (01:04→22:30)
[2017-05-01] MEDS: DOCUSATE SODIUM 50 MG/SENNA 8.6 MG TAB PO SCH ×3 (01:04→22:30)
[2017-05-01] MEDS: PIPERACIL-TAZO 4.5 GM PREMIX 100 ML IV SCH ×4 (01:04→17:36)
[2017-05-01] MEDS: RESP: ALBUTEROL 2.5 MG/IPRATROPIUM 0.5 MG NEB (SCH) INH ×4 (03:24→20:02)
[2017-05-01] MEDS: CHLORHEXIDINE GLUCONATE 2 % 1 PACK (2 CLOTHS)(taper/protocol) TOPICAL SCH (04:00)
[2017-05-01] MEDS: VANCOMYCIN 1,000 MG/NS 250 ML IV SCH ×2 (04:37)
[2017-05-01] MEDS: LACTULOSE SYRUP 20 GM/30 ML CUP PO SCH ×5 (04:37→22:29)
[2017-05-01] MEDS: NOREPINEPHRINE INJ 4 MG in SODIUM CHLOR 0.9% 250 ML INJ 246 ML IV PRN (05:15)
[2017-05-01] MEDS: ARTIFICIAL TEARS OPTH SOLN 15 ML BTL EACH EYE SCH ×3 (06:00→22:30)
[2017-05-01 06:08] LABS: HEMATOCRIT 29.8 % (39.0-51.0); MEAN CELL VOLUME 109.5 FL (80.0-100.0); MEAN CORPUSCULAR HEMOGLOBIN 36.4 PG (27.0-34.0); MEAN CORPUSCULAR HGB CONC 33.3 % (32.0-36.0); PLATELET COUNT 52 TH/MM3 (150-450); RED BLOOD COUNT 2.72 MIL/MM3 (4.50-5.90); RED CELL DISTRIBUTION WIDTH 26.9 % (11.6-17.2); WHITE BLOOD COUNT 5.4 TH/MM3 (4.0-11.0)
[2017-05-01 06:09] LABS: HEMO FLAGS AUTO DIFF
[2017-05-01 06:26] LABS: BICARBONATE 23.8 MEQ/L (21.0-32.0); MAGNESIUM 1.3 MG/DL (1.5-2.5); POTASSIUM 3.7 MEQ/L (3.5-5.1)
[2017-05-01 06:43] LABS: CALCIUM-PROTEIN CORRECTED 8.3 MG/DL (8.5-10.1)
[2017-05-01] MEDS: VASOPRESSIN INJ 40 UNITS in DEXTROSE 5% IN WATER 100ML INJ 98 ML IV SCH ×2 (07:25)
[2017-05-01 08:06] LABS: BANDS 4 % (0-6); BASOPHILS 1 % (0-2); EOSINOPHILS 1 % (0-4); NEUTROPHIL # MANUAL DIFF 4.4 TH/MM3 (1.8-7.7); POLYS (SEG NEUTROPHILS) 77 % (16-70); WBC DIFF SAMPLE 100
[2017-05-01 08:07] LABS: PLATELET ESTIMATE SMEAR LOW (NORMAL); PLATELET MORPHOLOGY NORMAL (NORMAL); SCAN/DIFF FINAL DIFF MANUAL
[2017-05-01] MEDS: REMOVE OLD PATCH T-DERMAL SCH (09:00)
--- NOTE | 2017-05-01 09:40 | HHI.GIFU ---
Subjective Remarks Resting in bed, sedated on vent in no distress. (Kathrin Carreno) Objective Vitals I&O Vital Signs Date Time Temp Pulse Resp B/P (MAP) Pulse Ox O2 Delivery O2 Flow Rate FiO2 05/01/17 08:02 97 40 05/01/17 06:00 102 05/01/17 05:15 95 115/78 05/01/17 04:19 100 40 05/01/17 04:00 40 05/01/17 04:00 102 05/01/17 04:00 98.2 102 16 100/75 (83) 100 95/71 (79) 05/01/17 02:00 102 05/01/17 01:15 100 40 05/01/17 00:00 95 05/01/17 00:00 40 05/01/17 00:00 98.4 95 16 100/73 (82) 100 82/71 (75) 04/30/17 22:00 89 04/30/17 20:00 40 04/30/17 20:00 98.1 93 16 97/68 (78) 100 92/59 (70) 04/30/17 20:00 93 04/30/17 18:00 91 04/30/17 18:00 91 16 101/75 (84) 98 102/72 (82) 04/30/17 17:00 87 16 110/82 (91) 99 118/69 (85) 04/30/17 16:56 99 40 04/30/17 16:00 98.2 85 16 108/76 (87) 98 115/65 (82) 04/30/17 16:00 85 04/30/17 16:00 40 04/30/17 15:00 91 16 106/75 (85) 99 120/67 (84) 04/30/17 14:01 91 16 114/68 (83) 97 117/66 (83) 04/30/17 14:00 91 04/30/17 14:00 91 16 122/70 (87) 98 04/30/17 13:00 93 16 95/71 (79) 99 108/58 (75) 04/30/17 12:15 98 99/67 04/30/17 12:00 98.5 107 16 105/74 (84) 100 105/65 (78) 04/30/17 12:00 40 04/30/17 12:00 107 04/30/17 11:38 100 40 04/30/17 11:00 97 16 116/80 (92) 100 119/66 (83) 04/30/17 10:00 94 16 120/85 (97) 99 128/69 (88) 04/30/17 10:00 94 I/O 04/30/17 04/30/17 04/30/17 05/01/17 05/01/17 05/01/17 07:00 15:00 23:00 07:00 15:00 23:00 Intake Total 1950 ml 1121 ml 350 ml 450 ml Output Total 450 ml 400 ml Balance 1500 ml 1121 ml 350 ml 50 ml IV Total 1950 ml 821 ml 350 ml 450 ml Other 300 ml Output Urine Total 450 ml 400 ml # Bowel Movements 0 Laboratory Laboratory Tests Test 04/30/17 09:40 05/01/17 04:57 Ammonia 53 White Blood Count 5.4 Red Blood Count 2.72 Hemoglobin 9.9 Hematocrit 29.8 Mean Corpuscular Volume 109.5 Mean Corpuscular Hemoglobin 36.4 Mean Corpuscular Hemoglobin Concent 33.3 Red Cell Distribution Width 26.9 Platelet Count 52 Mean Platelet Volume 9.8 CBC Comment AUTO DIFF Differential Total Cells Counted 100 Neutrophils % (Manual) 77 Band Neutrophils % 4 Lymphocytes % 5 Monocytes % 12 Eosinophils % 1 Basophils % 1 Neutrophils # (Manual) 4.4 Differential Comment FINAL DIFF MANUAL Platelet Estimate LOW Platelet Morphology Comment NORMAL Blood Urea Nitrogen 7 Creatinine 0.52 Random Glucose 88 Total Protein 4.9 Calcium Level 7.1 Phosphorus Level 2.9 Magnesium Level 1.3 Sodium Level 141 Potassium Level 3.7 Chloride Level 109 Carbon Dioxide Level 23.8 Anion Gap 8 Estimat Glomerular Filtration Rate 162 Protein Corrected Calcium 8.3 Date/Time Source Procedure Growth Status 04/27/17 14:15 Blood Peripheral Aerobic Blood Culture - Preliminary NO GROWTH IN 3 DAYS Resulted 04/27/17 14:15 Blood Peripheral Anaerobic Blood Culture - Preliminary NO GROWTH IN 3 DAYS Resulted 04/28/17 14:45 Sputum Endotracheal Gram Stain - Final Complete 04/28/17 14:45 Sputum Endotracheal Sputum Culture - Final LIGHT GROWTH NORMAL RESPIRATORY ANDREA Complete 04/28/17 14:48 Urine Catheterized Urine Legionella Antigen - Final PRESUMPTIVE NEGATIVE FOR LEGIONELLA P... Complete 04/28/17 14:48 Urine Catheterized Urine Streptococcus pneumoniae Antigen (M - Final PRESUMPTIVE NEGATIVE FOR STREPTOCOCCU... Complete Imaging Last Impressions Chest X-Ray 04/29/17 1543 Signed Impressions: Service Date/Time: Saturday, April 29, 2017 15:56 - CONCLUSION: 1. Interval placement of right internal jugular central venous line with no pneumothorax. 2. The nasogastric tube has been advanced slightly but still resides in the distal esophagus. This could be advanced proximally 7 cm. 3. Consolidation remains at the left lung base with small left effusion. Johnathon White MD Lower Extremity Ultrasound 04/28/17 0000 Signed Impressions: Service Date/Time: Friday, April 28, 2017 16:47 - CONCLUSION: Negative exam with no evidence of deep venous thrombosis. Johnathon White MD Chest CT 04/28/17 0000 Signed Impressions: Service Date/Time: Friday, April 28, 2017 11:03 - CONCLUSION: 1. Small bilateral pleural effusions with atelectasis in both lower lobes. There is also a focal area of groundglass opacity in the lingula that is nonspecific but could represent an infectious or inflammatory process. 2. Moderate size hiatal hernia with dilated and fluid-filled esophagus suggesting gastroesophageal reflux. The nasogastric tube distal tip is in the distal esophagus and should ideally be advanced into the stomach. Olu Triana MD Abdomen/Pelvis CT 04/28/17 0000 Signed Impressions: Service Date/Time: Friday, April 28, 2017 11:03 - CONCLUSION: 1. Small volume of free fluid within the abdomen and pelvis from uncertain etiology. Otherwise, no acute abnormality is identified within the abdomen or pelvis. 2. Nonacute findings include hepatic steatosis, moderate size hiatal hernia, 3 mm nonobstructing right renal stone, and sigmoid diverticulosis. Olu Triana MD Abdomen X-Ray 04/28/17 0000 Signed Impressions: Service Date/Time: Friday, April 28, 2017 19:08 - CONCLUSION: Nasogastric tube with the tip at the level of the distal esophagus. The tube could be advanced at least 10 cm. Johnathon White MD Head CT 04/27/17 1017 Signed Impressions: Service Date/Time: Thursday, April 27, 2017 11:00 - CONCLUSION: 1. No acute intracranial abnormality. 2. Complete opacification left maxillary sinus. Keagan Shipman MD Renal Ultrasound 04/27/17 0000 Signed Impressions: Service Date/Time: Thursday, April 27, 2017 23:50 - CONCLUSION: Negative renal sonogram. Rogerio Gunn MD Physical Exam HEENT: Normocephalic CHEST: OETT to vent. Clear with bases diminished. CTA CARDIAC: Regular, mildly tachycardic ABDOMEN: Soft, mildly distended, hypoactive bowel sounds, EXTREMITIES: Generalized edema. SKIN: Sedated on ventilator. (Kathrin Carreno) Assessment and Plan Plan ASSESSMENT - Anemia, macrocytic. S/P EGD (04/30/17)---> Martinez esophagus, Esophagitis, Gastritis, Foreign body in the distal esophagus. Pathology pending. S/P 2 units RBC, 2 units Platelets. Vitamin B12 1298. HH 9.9/ 29.8. PPI - Martinez's Esophagus, Esophagitis, Gastritis. Pathology pending. PPI - Foreign body in distal esophagus, s/p removal. Okay to place NGT. - Elevated ammonia, acute encephalopathy. Ammonia 53. Lactulose, Xifaxan. - Constipation/Ileus. Abdomen CT (04/28/17)--1. Small volume of free fluid within the abdomen and pelvis from uncertain etiology. Otherwise, no acute abnormality is identified within the abdomen or pelvis 2. Nonacute findings include hepatic steatosis, moderate size hiatal hernia, 3 mm nonobstructing right renal stone, and sigmoid diverticulosis. No BM in several days. Getting Lactulose. On Azithromycin, which theoretically, should help with gastric motility as well. Reglan. Add Miralax - Elevated bilirubin. CT as above. History of ETOH abuse, drinks 1/5 of vodka daily. T. Bili 1.6, AST 28, ALT 18, ALk Phopsh 64. Hypoalbuminemia with albumin 1.9. Plt 52,000, mild coagulopathy. Suspect liver cirrhosis, likely secondary to alcohol, fatty liver disease. - Thrombocytopenia. Platelets 52 S/P 2 platelet transfusion. - Sepsis, unclear source. Urine negative for legionella, streptococcus, sputum cx with light growth normal respiratory andrea. CT reveals possible pneumonia. Vanco, Azithromycin - Respiratory failure, COPD. Vent per CCM. PLAN - Insert NGT/OGT - Jevity 1.5 at 30cc/hr - [employer] for TF recommendations - Cont. Xifaxan - Cont. PPI - Cont. Reglan - Add Miralax - On Azithromycin, which should also help with gastric motility. - Monitor labs - Supportive care - Further recommendations to follow based on results of above. - Patient seen and examined by Dr. Moses and myself and this note is written on his behalf. (Kathrin Carreno) Plan Patient was seen and examined, agree with above Notes, picked tube will be placed today by IR, continue PPI, will follow up as needed (Jassi Moses MD) Kathrin Carreno May 01, 2017 09:40 Jassi Moses MD May 01, 2017 15:43
--- NOTE | 2017-05-01 09:52 | HHI.CCPN ---
Subjective Remarks/Hospital Course 61yM with h/o prior hepatic encephalopathy, etoh abuse, tobacco abuse, now admitted with weakness, fever, chills, worsening hypotension. called by hospitalist service overnight for clinical decline despite ivf resuscitation. Patient does complain of flank pain, but denies chest pain, abdominal pain. u/a +. started earlier on vanc/zosyn. has not voided. becoming worseningly agitated. unable to provide any additional information due to altered mental status. 04/28: Chart reviewed. Patient still quite agitated stating "I have to pee" patient has a Young catheter. Complaining of flank pain. Noted renal ultrasound negative. Currently on norepinephrine at 12 mg per minute. Subjective 04/29: Resting in bed in no acute distress. Currently on norepinephrine at 7 per minute for vasopressor support. Transfuse 2 units PRBC and 2 pack platelets overnight. Dilutional. Absolutely no signs of active bleeding. 04/30 Patient is sedated with Fentanyl and intubated. On Levophed 5 mics. Afebrile. For EGD today. 05/01 No events overnight. Sedated and intubated. On Levophed 4 mics. s/p EGD yesterday with shoed esophagitis, gastritis, food impaction in distal esophagus removed. Objective Vital Signs Date Time Temp Pulse Resp B/P (MAP) Pulse Ox O2 Delivery O2 Flow Rate FiO2 05/01/17 08:02 97 40 05/01/17 06:00 102 05/01/17 05:15 115/78 05/01/17 04:00 98.2 16 04/28/17 01:06 Simple Mask 6.00 Intake and Output 05/01/17 05/01/17 05/02/17 08:00 16:00 00:00 Intake Total 450 ml Output Total 400 ml Balance 50 ml Result Diagram: 05/01/17 0457 05/01/17 0457 Other Results Laboratory Tests Test 05/01/17 04:57 White Blood Count 5.4 TH/MM3 Red Blood Count 2.72 MIL/MM3 Hemoglobin 9.9 GM/DL Hematocrit 29.8 % Mean Corpuscular Volume 109.5 FL Mean Corpuscular Hemoglobin 36.4 PG Mean Corpuscular Hemoglobin Concent 33.3 % Red Cell Distribution Width 26.9 % Platelet Count 52 TH/MM3 Mean Platelet Volume 9.8 FL CBC Comment AUTO DIFF Differential Total Cells Counted 100 Neutrophils % (Manual) 77 % Band Neutrophils % 4 % Lymphocytes % 5 % Monocytes % 12 % Eosinophils % 1 % Basophils % 1 % Neutrophils # (Manual) 4.4 TH/MM3 Differential Comment FINAL DIFF MANUAL Platelet Estimate LOW Platelet Morphology Comment NORMAL Blood Urea Nitrogen 7 MG/DL Creatinine 0.52 MG/DL Random Glucose 88 MG/DL Total Protein 4.9 GM/DL Calcium Level 7.1 MG/DL Phosphorus Level 2.9 MG/DL Magnesium Level 1.3 MG/DL Sodium Level 141 MEQ/L Potassium Level 3.7 MEQ/L Chloride Level 109 MEQ/L Carbon Dioxide Level 23.8 MEQ/L Anion Gap 8 MEQ/L Estimat Glomerular Filtration Rate 162 ML/MIN Protein Corrected Calcium 8.3 MG/DL Imaging Last Impressions Chest X-Ray 04/29/17 1543 Signed Impressions: Service Date/Time: Saturday, April 29, 2017 15:56 - CONCLUSION: 1. Interval placement of right internal jugular central venous line with no pneumothorax. 2. The nasogastric tube has been advanced slightly but still resides in the distal esophagus. This could be advanced proximally 7 cm. 3. Consolidation remains at the left lung base with small left effusion. Johnathon White MD Lower Extremity Ultrasound 04/28/17 0000 Signed Impressions: Service Date/Time: Friday, April 28, 2017 16:47 - CONCLUSION: Negative exam with no evidence of deep venous thrombosis. Johnathon White MD Chest CT 04/28/17 0000 Signed Impressions: Service Date/Time: Friday, April 28, 2017 11:03 - CONCLUSION: 1. Small bilateral pleural effusions with atelectasis in both lower lobes. There is also a focal area of groundglass opacity in the lingula that is nonspecific but could represent an infectious or inflammatory process. 2. Moderate size hiatal hernia with dilated and fluid-filled esophagus suggesting gastroesophageal reflux. The nasogastric tube distal tip is in the distal esophagus and should ideally be advanced into the stomach. Olu Triana MD Abdomen/Pelvis CT 04/28/17 0000 Signed Impressions: Service Date/Time: Friday, April 28, 2017 11:03 - CONCLUSION: 1. Small volume of free fluid within the abdomen and pelvis from uncertain etiology. Otherwise, no acute abnormality is identified within the abdomen or pelvis. 2. Nonacute findings include hepatic steatosis, moderate size hiatal hernia, 3 mm nonobstructing right renal stone, and sigmoid diverticulosis. Olu Triana MD Abdomen X-Ray 04/28/17 0000 Signed Impressions: Service Date/Time: Friday, April 28, 2017 19:08 - CONCLUSION: Nasogastric tube with the tip at the level of the distal esophagus. The tube could be advanced at least 10 cm. Johnathon White MD Head CT 04/27/17 1017 Signed Impressions: Service Date/Time: Thursday, April 27, 2017 11:00 - CONCLUSION: 1. No acute intracranial abnormality. 2. Complete opacification left maxillary sinus. Keagan Shipman MD Renal Ultrasound 04/27/17 0000 Signed Impressions: Service Date/Time: Thursday, April 27, 2017 23:50 - CONCLUSION: Negative renal sonogram. Rogerio Gunn MD Objective Remarks GENERAL: Patient is 61 intubated and sedated SKIN: Warm and dry. HEAD: Normocephalic. EYES: No scleral icterus. No injection or drainage. NECK: Supple, trachea midline. No JVD or lymphadenopathy. CARDIOVASCULAR: Regular rate and rhythm without murmurs, gallops, or rubs. RESPIRATORY: Breath sounds equal bilaterally. No accessory muscle use. GASTROINTESTINAL: Abdomen soft, non-tender, nondistended. MUSCULOSKELETAL: No cyanosis, or edema. Neuro: Sedated. Date of Insertion: Apr 28, 2017 Line: Central Venous Catheter Side: Right Location: Femoral A/P Assessment and Plan Neuro/Psych: Acute encephalopathy likely secondary to EtOH withdrawal/sepsis/hyperammonia EtOH Patient does drink 1/5 of vodka daily. 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 Seizure precautions CV: Severe sepsis Lactic acidosis- cleared Wean Off Levophed ( on 4 mics) monitor HR and BP keep MAP>65mmHg Lactic acid 1.7 04/29 Resp: COPD Ongoing tobaccoism PRVC 16/550/1/5/40 Ventilator bundle Scheduled albuterol/ipratropium aerosols every 6 hours with albuterol aerosols every 2 hours when necessary dyspnea CT thorax 04/28 revealed left lingula infiltrate. Small bilateral pleural effusions. Spontaneous breathing trials when clinically indicated Nicotine patch 14 mg daily. GI: Hyperammonia - Elevated AST Hypoalbuminemia - mild protein calorie malnutrition Hiatal hernia Sigmoid diverticulosis Hepatic steatosis s/p EGD 04/30: Esophagitis, gastritis, food impaction in distal esophagus removed. Patient is for NGT placement by IR. Pantoprazole for GI prophylaxis Docusate sodium/senna 1 tablet twice a day for bowel regimen Currently on lactulose 30 cc every 6 hours and Xifaxan 550 mg by mouth twice a day for elevated ammonia. : Right kidney nonobstructing stone 3 mm Renal ultrasound revealed no acute findings Monitor renal function, I/O's, electrolytes replacement per protocol. Will need Mag replacement today. Diurese with Bumex 1mg x1 Endo: Sliding-scale insulin to maintain euglycemia with Accu-Cheks every 6 hours with low regimen with Novulin R TSH: 3.14 04/28 Heme: Macrocytic anemia Thrombocytopenia - was 211 //16 Likely secondary to EtOH/chronic liver disease possibility of underlying sepsis There are no signs of consumption or hemolysis. Patient was transfused 2 pack platelets and 2 PRBC 04/28. Follow CBC daily. Monitor trends. ID: Severe sepsis - unclear source possibly urine Continue abx( piperacillin/tazobactam, Azithromycin and vanco)monitor for signs of infections ( Fever, WBC) d/c vanco Pertinent cultures Blood cultures 2 -04/27 -no growth to date Urine culture - 04/27 -50 - 100,000 mixed gram-positive Sputum 04/28- normal resp andrea Urine pneumococcal and Legionella antigens negative MSK: PT evaluate and treat Access - Right IJ placed 04/29 Prophylaxis - GI - pantoprazole - DVT - SCD/no pharmacological prophylaxis in light of thrombocytopenia Critical care time 30 minutes Don Rod MD May 01, 2017 09:52
[2017-05-01] MEDS ORDERED: BUMETANIDE INJ 1 MG/4 ML VIAL IV PUSH ONE (10:00)
[2017-05-01] MEDS: AZITHROMYCIN INJ 500 MG in SODIUM CHLOR 0.9% 250 ML INJ 250 ML IV SCH (10:53)
[2017-05-01] MEDS: NICOTINE 14 MG/24 HR PATCH T-DERMAL SCH (10:53)
[2017-05-01] MEDS: CHLORHEXIDINE 0.12% (ORAL KIT) 15 ML CUP MT SCH ×2 (10:54→20:00)
[2017-05-01] MEDS: SODIUM CHLORIDE 0.9% FLUSH 10 ML FLUSH IVF SCH (10:54)
[2017-05-01] MEDS: MAGNESIUM SULFATE INJ 2 GM in SODIUM CHLORIDE 0.9% INJ 96 ML IV PRN (10:54)
[2017-05-01] MEDS: fentaNYL DRIP 250 ML IV PRN (11:48)
[2017-05-01] MEDS: GABAPENTIN 300 MG CAP PO SCH ×3 (13:00→17:36)
[2017-05-01] MEDS ORDERED: MIDAZOLAM HCL 2 MG/2 ML VIAL ONE (13:31)
--- NOTE | 2017-05-01 14:06 | PD.RAD ---
Post Procedure Progress Note Pre Procedure Diagnosis: (1) Acid reflux Post Procedure Diagnosis: (1) Acid reflux Procedure Date: May 01, 2017 Supervising Radiologist: Zain Kumar Plan of Activity Patient to Unit: Critical Care Patient Condition: Poor Additional Comments: NG tube placed without difficulty. The tip of the tube is in the distal antrum full dictated report to follow See PACS Report for procedural detail/treatment Zain Kumar MD May 01, 2017 14:06
[2017-05-01] MEDS ORDERED: IOHEXOL 350 MG/ML 50 ML BTL (for RAD DIAG) NG ONE (14:12)
[2017-05-01] MEDS ORDERED: PHARMACY ORDERED LAB ONE (14:45)
[2017-05-01] MEDS: MULTIVITAMIN TAB PO SCH (15:12)
[2017-05-01] MEDS: FOLIC ACID 1 MG TAB PO SCH (15:12)
[2017-05-01] MEDS: POLYETHYLENE GLYCOL 17 GM PKG PO SCH (15:13)
[2017-05-01] MEDS: PANTOPRAZOLE SODIUM 40 MG VIAL IV PUSH SCH (15:14)
[2017-05-01] MEDS: THIAMINE HCL 100 MG TAB PO SCH (15:17)
--- NOTE | 2017-05-01 15:21 | RADRPT ---
EXAM DATE/TIME: 05/01/2017 13:13 [facility] COMPARISON: No previous studies available for comparison. INDICATIONS : Patient with weakness. History of hepatic encephalopathy. MEDICAL HISTORY : 1. COPD 2. Smoker 3. Alcohol abuse 4. kidney stones 5. esophagitis SURGICAL HISTORY : 1. none recorded ENCOUNTER: Initial ACUITY: 4-6 days PAIN SCORE: Nonresponsive. FLUORO TIME: 16.3 minutes IMAGE SERIES: 3 SEDATION TIME: 10 minutes CONTRAST: 10 cc Omnipaque (iohexol) 350 MEDICATION(S): 1.) 2 mg midazolam (Versed) IV DEVICE(S): 1.) 14 FR NG TUBE PROCEDURE : 1. Fluoroscopically guided nasogastric tube placement. With fluoroscopic guidance a nasogastric tube was passed through the nasal cavity and down into the s tomach. The stomach was partially insufflated with air and the tube was navigated through the pylori c channel into the duodenum. Injection of positive contrast demonstrates good position of catheter w ithin the distal antrum Note is made of a large ventral hernia. CONCLUSION: Uncomplicated nasogastric tube placement as above. Zain Kumar MD on May 01, 2017 at 15:18 Board Certified Radiologist. This report was verified electronically.
[2017-05-02] VITALS (23 sets, daily range): BP systolic 81–122; BP diastolic 56–97; PULSE 83–101; RESP 12–17; TEMP 98.1–98.9; O2SAT 96–100
[2017-05-02] MEDS: PIPERACIL-TAZO 4.5 GM PREMIX 100 ML IV SCH ×5 (00:27→23:06)
[2017-05-02] MEDS: CHLORHEXIDINE GLUCONATE 2 % 1 PACK (2 CLOTHS)(taper/protocol) TOPICAL SCH (00:27)
[2017-05-02] MEDS: LACTULOSE SYRUP 20 GM/30 ML CUP PO SCH ×4 (00:27→21:08)
[2017-05-02] MEDS: fentaNYL DRIP 250 ML IV PRN ×3 (00:28→23:06)
[2017-05-02] MEDS: RESP: ALBUTEROL 2.5 MG/IPRATROPIUM 0.5 MG NEB (SCH) INH ×4 (03:26→19:49)
[2017-05-02 05:45] LABS: AUTOMATED NEUTROPHIL # 7.4 TH/MM3 (1.8-7.7); BASOPHIL # 0.1 TH/MM3 (0-0.2); BASOPHIL % 0.8 % (0.0-2.0); EOSINOPHIL # 0.1 TH/MM3 (0-0.4); EOSINOPHIL % 1.4 % (0.0-4.0); HEMATOCRIT 30.2 % (39.0-51.0); LYMPHOCYTE # 0.5 TH/MM3 (1.0-4.8); MEAN CELL VOLUME 109.9 FL (80.0-100.0); MEAN CORPUSCULAR HEMOGLOBIN 36.5 PG (27.0-34.0); MEAN CORPUSCULAR HGB CONC 33.2 % (32.0-36.0); MONO % 16.2 % (0.0-8.0); NEUT % 76.6 % (16.0-70.0); PLATELET COUNT 59 TH/MM3 (150-450); RED BLOOD COUNT 2.74 MIL/MM3 (4.50-5.90); RED CELL DISTRIBUTION WIDTH 26.7 % (11.6-17.2); WHITE BLOOD COUNT 9.7 TH/MM3 (4.0-11.0)
--- NOTE | 2017-05-02 05:49 | RADRPT ---
EXAM DATE/TIME: 05/02/2017 05:04 [facility] COMPARISON: No previous studies available for comparison. INDICATIONS : Short of breath. MEDICAL HISTORY : Chronic obstructive pulmonary disease. SURGICAL HISTORY : None. ENCOUNTER: Subsequent ACUITY: 1 week PAIN SCORE: 0/10 LOCATION: Bilateral chest FINDINGS: A single view of the chest demonstrates endotracheal tube in good position. Nasogastric tube coiled i n stomach. Right central line in superior vena cava. Basilar airspace disease, left greater than righ t with small effusions similar to April 29. CONCLUSION: 1. Support apparatus in good position. Basilar airspace disease similar to April 29. Paco Ramirez MD on May 02, 2017 at 5:45 Board Certified Radiologist. This report was verified electronically.
[2017-05-02 05:55] LABS: HEMO FLAGS AUTO DIFF
[2017-05-02 06:07] LABS: BICARBONATE 21.5 MEQ/L (21.0-32.0); MAGNESIUM 1.5 MG/DL (1.5-2.5)
[2017-05-02] MEDS: ARTIFICIAL TEARS OPTH SOLN 15 ML BTL EACH EYE SCH ×3 (06:41→21:09)
[2017-05-02 07:18] LABS: BANDS 1 % (0-6); EOSINOPHILS 1 % (0-4); METAMYELOCYTES 1 % (0-1); MYELOCYTES 2 % (0-0); NEUTROPHIL # MANUAL DIFF 8.1 TH/MM3 (1.8-7.7); POLYS (SEG NEUTROPHILS) 79 % (16-70); WBC DIFF SAMPLE 100
[2017-05-02 07:20] LABS: PLATELET ESTIMATE SMEAR LOW (NORMAL); PLATELET MORPHOLOGY ENLARGED (NORMAL)
[2017-05-02 07:22] LABS: SCAN/DIFF FINAL DIFF MANUAL
[2017-05-02] MEDS: REMOVE OLD PATCH T-DERMAL SCH (08:47)
[2017-05-02] MEDS: NICOTINE 14 MG/24 HR PATCH T-DERMAL SCH (08:47)
[2017-05-02] MEDS: PANTOPRAZOLE SODIUM 40 MG VIAL IV PUSH SCH (08:47)
[2017-05-02] MEDS: GABAPENTIN 300 MG CAP PO SCH ×3 (08:48→18:09)
[2017-05-02] MEDS: RIFAXIMIN 550 MG TAB PO SCH ×2 (08:48→21:08)
[2017-05-02] MEDS: FOLIC ACID 1 MG TAB PO SCH (08:48)
[2017-05-02] MEDS: DOCUSATE SODIUM 50 MG/SENNA 8.6 MG TAB PO SCH ×2 (08:48→21:08)
[2017-05-02] MEDS: AZITHROMYCIN INJ 500 MG in SODIUM CHLOR 0.9% 250 ML INJ 250 ML IV SCH (08:48)
[2017-05-02] MEDS: POLYETHYLENE GLYCOL 17 GM PKG PO SCH (08:48)
[2017-05-02] MEDS: THIAMINE HCL 100 MG TAB PO SCH (08:48)
[2017-05-02] MEDS: MULTIVITAMIN TAB PO SCH (08:48)
[2017-05-02] MEDS: SODIUM CHLORIDE 0.9% FLUSH 10 ML FLUSH IVF SCH (08:49)
[2017-05-02] MEDS: CHLORHEXIDINE 0.12% (ORAL KIT) 15 ML CUP MT SCH ×2 (08:49→20:00)
[2017-05-02] MEDS: MAGNESIUM SULFATE 1 GM PREMIX 100 ML IV SCH ×2 (09:45→10:45)
[2017-05-02] MEDS ORDERED: MAGNESIUM SULFATE 1 GM PREMIX 100 ML IV ONE (09:45)
--- NOTE | 2017-05-02 09:53 | HHI.CCPN ---
Subjective Remarks/Hospital Course 61yM with h/o prior hepatic encephalopathy, etoh abuse, tobacco abuse, now admitted with weakness, fever, chills, worsening hypotension. called by hospitalist service overnight for clinical decline despite ivf resuscitation. Patient does complain of flank pain, but denies chest pain, abdominal pain. u/a +. started earlier on vanc/zosyn. has not voided. becoming worseningly agitated. unable to provide any additional information due to altered mental status. 04/28: Chart reviewed. Patient still quite agitated stating "I have to pee" patient has a Yougn catheter. Complaining of flank pain. Noted renal ultrasound negative. Currently on norepinephrine at 12 mg per minute. 04/29: Resting in bed in no acute distress. Currently on norepinephrine at 7 per minute for vasopressor support. Transfuse 2 units PRBC and 2 pack platelets overnight. Dilutional. Absolutely no signs of active bleeding. 04/30 Patient is sedated with Fentanyl and intubated. On Levophed 5 mics. Afebrile. For EGD today. 05/01 No events overnight. Sedated and intubated. On Levophed 4 mics. s/p EGD yesterday with shoed esophagitis, gastritis, food impaction in distal esophagus removed. Subjective 05/02: Afebrile. Off all vasopressors. NG tube advanced by IR yesterday. Feeding to be initiated today. Currently on fentanyl drip at 2 g an hour. Objective Vital Signs Date Time Temp Pulse Resp B/P (MAP) Pulse Ox O2 Delivery O2 Flow Rate FiO2 05/02/17 07:58 99 35 05/02/17 06:00 95 05/02/17 04:00 98.4 15 92/63 (73) 113/85 (94) Intake and Output 05/02/17 05/02/17 05/03/17 08:00 16:00 00:00 Intake Total 350 ml Output Total 300 ml Balance 50 ml Result Diagram: 05/02/17 0455 05/02/17 0455 Other Results Microbiology Date/Time Source Procedure Growth Status 04/27/17 14:15 Blood Peripheral Aerobic Blood Culture - Preliminary NO GROWTH IN 4 DAYS Resulted 04/27/17 14:15 Blood Peripheral Anaerobic Blood Culture - Preliminary NO GROWTH IN 4 DAYS Resulted 04/28/17 14:45 Sputum Endotracheal Gram Stain - Final Complete 04/28/17 14:45 Sputum Endotracheal Sputum Culture - Final LIGHT GROWTH NORMAL RESPIRATORY ANDREA Complete 04/28/17 14:48 Urine Catheterized Urine Legionella Antigen - Final PRESUMPTIVE NEGATIVE FOR LEGIONELLA P... Complete 04/28/17 14:48 Urine Catheterized Urine Streptococcus pneumoniae Antigen (M - Final PRESUMPTIVE NEGATIVE FOR STREPTOCOCCU... Complete Imaging Last Impressions Chest X-Ray 05/02/17 0000 Signed Impressions: Service Date/Time: Tuesday, May 02, 2017 05:04 - CONCLUSION: 1. Support apparatus in good position. Basilar airspace disease similar to April 29. Paco Ramirez MD Abdomen Fluoroscopy 05/01/17 0000 Signed Impressions: Service Date/Time: Monday, May 01, 2017 13:13 - CONCLUSION: Uncomplicated nasogastric tube placement as above. Zain Kumar MD Lower Extremity Ultrasound 04/28/17 0000 Signed Impressions: Service Date/Time: Friday, April 28, 2017 16:47 - CONCLUSION: Negative exam with no evidence of deep venous thrombosis. Johnathon White MD Chest CT 04/28/17 0000 Signed Impressions: Service Date/Time: Friday, April 28, 2017 11:03 - CONCLUSION: 1. Small bilateral pleural effusions with atelectasis in both lower lobes. There is also a focal area of groundglass opacity in the lingula that is nonspecific but could represent an infectious or inflammatory process. 2. Moderate size hiatal hernia with dilated and fluid-filled esophagus suggesting gastroesophageal reflux. The nasogastric tube distal tip is in the distal esophagus and should ideally be advanced into the stomach. Olu Triana MD Abdomen/Pelvis CT 04/28/17 0000 Signed Impressions: Service Date/Time: Friday, April 28, 2017 11:03 - CONCLUSION: 1. Small volume of free fluid within the abdomen and pelvis from uncertain etiology. Otherwise, no acute abnormality is identified within the abdomen or pelvis. 2. Nonacute findings include hepatic steatosis, moderate size hiatal hernia, 3 mm nonobstructing right renal stone, and sigmoid diverticulosis. Olu Triana MD Abdomen X-Ray 04/28/17 0000 Signed Impressions: Service Date/Time: Friday, April 28, 2017 19:08 - CONCLUSION: Nasogastric tube with the tip at the level of the distal esophagus. The tube could be advanced at least 10 cm. Johnathon White MD Head CT 04/27/17 1017 Signed Impressions: Service Date/Time: Thursday, April 27, 2017 11:00 - CONCLUSION: 1. No acute intracranial abnormality. 2. Complete opacification left maxillary sinus. Keagan Shipman MD Renal Ultrasound 04/27/17 0000 Signed Impressions: Service Date/Time: Thursday, April 27, 2017 23:50 - CONCLUSION: Negative renal sonogram. Rogerio Gunn MD Objective Remarks GENERAL: 61 year old male, critically ill currently orotracheally intubated SKIN: Warm and dry. No rash HEAD: Normocephalic. EYES: No scleral icterus. Pupils are round 3 mm bilaterally and reactive No injection or drainage. NECK: Supple, trachea midline. No JVD or lymphadenopathy. CARDIOVASCULAR: RRR. S1, S2 no S4 without murmur RESPIRATORY: Breath sounds equal bilaterally. No accessory muscle use. GASTROINTESTINAL: Min slightly distended. Hypoactive bowel sounds appreciated throughout. Oh tenderness appreciated MUSCULOSKELETAL: No significant peripheral edema Neuro: Positive gag. Positive corneal reflex. Withdraws to pain and moves spontaneously and all 4 extremities on sedation vacation Vascular Central Line Catheter: Yes Assessment to: Continue Date of Insertion: Apr 28, 2017 Line: Central Venous Catheter Side: Right Location: Femoral A/P Assessment and Plan Neuro/Psych: Acute encephalopathy likely secondary to EtOH withdrawal/sepsis/hyperammonia EtOH Patient does drink 1/5 of vodka daily. Currently on fentanyl drip at 200 an hour for analgesia while intubated Goal of RA SS -2 Daily sedation vacation Dexmedetomidine drip if needed to maintain RA SS 0 Thiamine, folate and multivitamin daily CT brain 04/27 revealed left maxillary sinusitis otherwise no acute intra- cranial findings Patient does have a history of EtOH withdrawal seizures. Seizure precautions CV: Severe sepsis Lactic acidosis- cleared Currently on norepinephrine monitor HR and BP keep MAP>65mmHg Lactic acid 1.7 04/29 Resp: COPD Ongoing tobaccoism [facility] /08/10/39 Ventilator bundle Scheduled albuterol/ipratropium aerosols every 6 hours with albuterol aerosols every 2 hours when necessary dyspnea CT thorax 04/28 revealed left lingula infiltrate. Small bilateral pleural effusions. Spontaneous breathing trials when clinically indicated Nicotine patch 14 mg daily. GI: Hyperammonia - Elevated AST Hypoalbuminemia - mild protein calorie malnutrition Hiatal hernia Sigmoid diverticulosis Hepatic steatosis s/p EGD 04/30: Esophagitis, gastritis, food impaction in distal esophagus removed. Patient is for NGT placement by IR/26 Start Jevity 1.5 at 10 cc an hour goal 60 cc an hour per nutrition's recommendations Pantoprazole for GI prophylaxis Docusate sodium/senna 1 tablet twice a day for bowel regimen Currently on lactulose 30 cc every 6 hours and Xifaxan 550 mg by mouth twice a day for elevated ammonia. : Right kidney nonobstructing stone 3 mm Renal ultrasound revealed no hydronephrosis Monitor renal function, I/O's, electrolytes replacement per protocol. Endo: Sliding-scale insulin to maintain euglycemia with Accu-Cheks every 6 hours with low regimen with Novulin R SH: 3.14 04/28 Heme: Macrocytic anemia Thrombocytopenia - was 211 07/21 Likely secondary to EtOH/chronic liver disease possibility of underlying sepsis There are no signs of consumption or hemolysis. Patient was transfused 2 pack platelets and 2 PRBC 04/28. Follow CBC daily. Monitor trends. ID: Severe sepsis - unclear source possibly urine Continue abx( piperacillin/tazobactam, Azithromycin and vanco)monitor for signs of infections ( Fever, WBC) Pertinent cultures Blood cultures 2 -04/27 -no growth to date Urine culture - 04/27 -50 - 100,000 mixed gram-positive Sputum 04/28- normal resp andrea Urine pneumococcal and Legionella antigens negative MSK: PT evaluate and treat FEN: Hypo-magnesium 2 g mag sulfate IV 1. Schedule mag oxide 400 mg twice a day 2 days. Recheck magnesium in a.m. Access - Right IJ placed 04/29. Right radial arterial line Prophylaxis - GI - pantoprazole - DVT - SCD/no pharmacological prophylaxis in light of thrombocytopenia Critical care time 30 minutes Ray Montes MD May 02, 2017 09:53
[2017-05-02] MEDS: MAGNESIUM OXIDE 400 MG TAB PO SCH ×2 (10:00→21:09)
[2017-05-02] MEDS ORDERED: RESP: ALBUTEROL 2.5 MG/IPRATROPIUM 0.5 MG NEB (SCH) INH (10:00)
[2017-05-02] MEDS: MAGNESIUM SULFATE INJ 2 GM in SODIUM CHLORIDE 0.9% INJ 96 ML IV PRN (12:44)
[2017-05-03] VITALS (25 sets, daily range): BP systolic 81–123; BP diastolic 49–78; PULSE 79–109; RESP 11–30; TEMP 97.9–99; O2SAT 94–100
[2017-05-03] MEDS: RESP: ALBUTEROL 2.5 MG/IPRATROPIUM 0.5 MG NEB (SCH) INH ×4 (02:51→19:43)
[2017-05-03 04:51] LABS: BLOOD GAS BASE EXCESS -3.3 mmol/L (-2-2); BLOOD GAS CARBOXYHEMOGLOBIN 1.3 % (0-4); BLOOD GAS HCO3 21 mmol/L (22-26); BLOOD GAS METHEMOGLOBIN 1.1 % (0-2); BLOOD GAS O2 HGB SATURATION 93 % (90-100); BLOOD GAS OXYGEN CONTENT 12.3 Vol % (12.0-20.0); BLOOD GAS PCO2 34 mmHg (38-42); BLOOD GAS PO2 79 mmHg (61-120); BLOOD GAS TOTAL HGB 9.3 G/DL (12.0-16.0); TEMP CORR TO 98.6
[2017-05-03 04:52] LABS: CRITICAL VALUE NO; FIO2 35 %; OXYGEN DEVICE VENTILATOR
[2017-05-03 05:03] LABS: BASOPHIL # 0.1 TH/MM3 (0-0.2); EOSINOPHIL # 0.2 TH/MM3 (0-0.4); HEMATOCRIT 26.8 % (39.0-51.0); LYMPH % 5.7 % (9.0-44.0); LYMPHOCYTE # 0.6 TH/MM3 (1.0-4.8); MEAN CELL VOLUME 110.2 FL (80.0-100.0); MEAN CORPUSCULAR HEMOGLOBIN 36.9 PG (27.0-34.0); MEAN CORPUSCULAR HGB CONC 33.5 % (32.0-36.0); MONO % 9.7 % (0.0-8.0); NEUT % 81.6 % (16.0-70.0); PLATELET COUNT 75 TH/MM3 (150-450); RED BLOOD COUNT 2.43 MIL/MM3 (4.50-5.90); RED CELL DISTRIBUTION WIDTH 26.1 % (11.6-17.2)
[2017-05-03 05:04] LABS: HEMO FLAGS AUTO DIFF
[2017-05-03 05:25] LABS: ALT (GPT) 18 U/L (12-78); AMYLASE LESS THAN 5 U/L (25-115); ANION GAP 8 MEQ/L (5-15); AST (GOT) 52 U/L (15-37); BICARBONATE 24.6 MEQ/L (21.0-32.0); BLOOD UREA NITROGEN 15 MG/DL (7-18); CHLORIDE 110 MEQ/L (98-107); GLOMERULAR FILTRATION RATE 74 ML/MIN (>89); MAGNESIUM 1.9 MG/DL (1.5-2.5); POTASSIUM 3.7 MEQ/L (3.5-5.1); SODIUM (NA) 143 MEQ/L (136-145)
[2017-05-03 05:28] LABS: ALKALINE PHOSPHATASE 98 U/L (45-117); INDIRECT BILIRUBIN 0.2 MG/DL (0.0-0.8); TOTAL BILIRUBIN ADULT 1.1 MG/DL (0.2-1.0)
[2017-05-03 05:49] LABS: OVALOCYTES 1+ (NORMAL); PLATELET ESTIMATE SMEAR LOW (NORMAL); PLATELET MORPHOLOGY NORMAL (NORMAL); SCAN/DIFF AUTO DIFF CONFIRMED
--- NOTE | 2017-05-03 06:05 | RADRPT ---
EXAM DATE/TIME: 05/03/2017 05:07 [facility] COMPARISON: CHEST SINGLE AP, May 02, 2017, 5:04. INDICATIONS : Reespiratory failure. MEDICAL HISTORY : Chronic obstructive pulmonary disease. SURGICAL HISTORY : None. ENCOUNTER: Subsequent ACUITY: 1 week PAIN SCORE: Non-responsive. LOCATION: Bilateral chest FINDINGS: Endotracheal tube in good position. Nasogastric tube coiled in stomach. Right central line in superio r vena cava. Cardiomegaly. Bilateral mostly basilar airspace disease slightly increased from Septembe r 27. CONCLUSION: 1. Support apparatus unchanged. Slight increase in basilar airspace disease. Paco Ramirez MD on May 03, 2017 at 6:02 Board Certified Radiologist. This report was verified electronically.
[2017-05-03 06:16] LABS: DRAW SITE LP; NUMBER OF ARTERIAL PUNCTURES 1
[2017-05-03 06:17] LABS: STAT NO
[2017-05-03] MEDS: LACTULOSE SYRUP 20 GM/30 ML CUP PO SCH ×4 (06:50→21:41)
[2017-05-03] MEDS: ARTIFICIAL TEARS OPTH SOLN 15 ML BTL EACH EYE SCH ×3 (06:50→21:42)
[2017-05-03] MEDS: PIPERACIL-TAZO 4.5 GM PREMIX 100 ML IV SCH ×3 (06:50→16:39)
[2017-05-03] MEDS: POLYETHYLENE GLYCOL 17 GM PKG PO SCH (08:37)
[2017-05-03] MEDS: THIAMINE HCL 100 MG TAB PO SCH (08:37)
[2017-05-03] MEDS: PANTOPRAZOLE SODIUM 40 MG VIAL IV PUSH SCH (08:37)
[2017-05-03] MEDS: REMOVE OLD PATCH T-DERMAL SCH (08:37)
[2017-05-03] MEDS: NICOTINE 14 MG/24 HR PATCH T-DERMAL SCH (08:37)
[2017-05-03] MEDS: MULTIVITAMIN TAB PO SCH (08:37)
[2017-05-03] MEDS: AZITHROMYCIN INJ 500 MG in SODIUM CHLOR 0.9% 250 ML INJ 250 ML IV SCH (08:37)
[2017-05-03] MEDS: CHLORHEXIDINE 0.12% (ORAL KIT) 15 ML CUP MT SCH ×2 (08:38→21:41)
[2017-05-03] MEDS: SODIUM CHLORIDE 0.9% FLUSH 10 ML FLUSH IVF SCH (08:38)
[2017-05-03] MEDS: DOCUSATE SODIUM 50 MG/SENNA 8.6 MG TAB PO SCH ×2 (08:38→21:41)
[2017-05-03] MEDS: MAGNESIUM OXIDE 400 MG TAB PO SCH ×2 (08:38→21:41)
[2017-05-03] MEDS: FOLIC ACID 1 MG TAB PO SCH (08:38)
[2017-05-03] MEDS: GABAPENTIN 300 MG CAP PO SCH ×3 (08:38→16:39)
[2017-05-03] MEDS: RIFAXIMIN 550 MG TAB PO SCH ×2 (08:38→21:41)
[2017-05-03] MEDS ORDERED: ALBUMIN HUMAN 25% 25 GM/100 ML BAGP IV ONE (12:45)
[2017-05-03] MEDS ORDERED: BUMETANIDE INJ 1 MG/4 ML VIAL IV PUSH ONE (12:45)
[2017-05-03] MEDS ORDERED: POTASSIUM CHLOR 40 MEQ PREMIX 100 ML IV ONE (12:45)
--- NOTE | 2017-05-03 13:04 | HHI.CCPN ---
Subjective Remarks/Hospital Course 61yM with h/o prior hepatic encephalopathy, etoh abuse, tobacco abuse, now admitted with weakness, fever, chills, worsening hypotension. called by hospitalist service overnight for clinical decline despite ivf resuscitation. Patient does complain of flank pain, but denies chest pain, abdominal pain. u/a +. started earlier on vanc/zosyn. has not voided. becoming worseningly agitated. unable to provide any additional information due to altered mental status. 04/28: Chart reviewed. Patient still quite agitated stating "I have to pee" patient has a Young catheter. Complaining of flank pain. Noted renal ultrasound negative. Currently on norepinephrine at 12 mg per minute. 04/29: Resting in bed in no acute distress. Currently on norepinephrine at 7 per minute for vasopressor support. Transfuse 2 units PRBC and 2 pack platelets overnight. Dilutional. Absolutely no signs of active bleeding. 04/30 Patient is sedated with Fentanyl and intubated. On Levophed 5 mics. Afebrile. For EGD today. 05/01 No events overnight. Sedated and intubated. On Levophed 4 mics. s/p EGD yesterday with shoed esophagitis, gastritis, food impaction in distal esophagus removed. Subjective 05/02: Afebrile. Off all vasopressors. NG tube advanced by IR yesterday. Feeding to be initiated today. Currently on fentanyl drip 05/03: Remains intubated sedated and not following commands remains on fentanyl infusion. Attempt CPAP trial if patient wakeful enough. Urine output minimal only 300 mL in 24 hours. Will give albumin and Bumex Objective Vital Signs Date Time Temp Pulse Resp B/P (MAP) Pulse Ox O2 Delivery O2 Flow Rate FiO2 05/03/17 11:50 97 35 05/03/17 11:00 101 05/03/17 11:00 14 85/61 (69) 05/03/17 08:00 97.9 Intake and Output 05/03/17 05/03/17 05/04/17 08:00 16:00 00:00 Intake Total 480 ml Output Total 200 ml Balance 280 ml Result Diagram: 05/03/17 0433 05/03/17 0433 Other Results Laboratory Tests Test 05/03/17 04:30 Blood Gas Puncture Site LP Blood Gas Patient Temperature 98.6 Blood Gas HCO3 21 mmol/L (22-26) Blood Gas Base Excess -3.3 mmol/L (-2-2) Blood Gas Oxygen Saturation 93 % (90-100) Arterial Blood pH 7.40 (7.380-7.420) Arterial Blood Partial Pressure CO2 34 mmHg (38-42) Arterial Blood Partial Pressure O2 79 mmHg (61-120) Arterial Blood Oxygen Content 12.3 Vol % (12.0-20.0) Arterial Blood Carboxyhemoglobin 1.3 % (0-4) Arterial Blood Methemoglobin 1.1 % (0-2) Blood Gas Hemoglobin 9.3 G/DL (12.0-16.0) Oxygen Delivery Device VENTILATOR Blood Gas Ventilator Setting COMMENT Blood Gas Inspired Oxygen 35 % Imaging Last Impressions Chest X-Ray 05/02/17 0000 Signed Impressions: Service Date/Time: Tuesday, May 02, 2017 05:04 - CONCLUSION: 1. Support apparatus in good position. Basilar airspace disease similar to April 29. Paco Ramirez MD Abdomen Fluoroscopy 05/01/17 0000 Signed Impressions: Service Date/Time: Monday, May 01, 2017 13:13 - CONCLUSION: Uncomplicated nasogastric tube placement as above. Zain Kumar MD Lower Extremity Ultrasound 04/28/17 0000 Signed Impressions: Service Date/Time: Friday, April 28, 2017 16:47 - CONCLUSION: Negative exam with no evidence of deep venous thrombosis. Johnathon White MD Chest CT 04/28/17 0000 Signed Impressions: Service Date/Time: Friday, April 28, 2017 11:03 - CONCLUSION: 1. Small bilateral pleural effusions with atelectasis in both lower lobes. There is also a focal area of groundglass opacity in the lingula that is nonspecific but could represent an infectious or inflammatory process. 2. Moderate size hiatal hernia with dilated and fluid-filled esophagus suggesting gastroesophageal reflux. The nasogastric tube distal tip is in the distal esophagus and should ideally be advanced into the stomach. Olu Triana MD Abdomen/Pelvis CT 04/28/17 0000 Signed Impressions: Service Date/Time: Friday, April 28, 2017 11:03 - CONCLUSION: 1. Small volume of free fluid within the abdomen and pelvis from uncertain etiology. Otherwise, no acute abnormality is identified within the abdomen or pelvis. 2. Nonacute findings include hepatic steatosis, moderate size hiatal hernia, 3 mm nonobstructing right renal stone, and sigmoid diverticulosis. Olu Triana MD Abdomen X-Ray 04/28/17 0000 Signed Impressions: Service Date/Time: Friday, April 28, 2017 19:08 - CONCLUSION: Nasogastric tube with the tip at the level of the distal esophagus. The tube could be advanced at least 10 cm. Johnathon White MD Head CT 04/27/17 1017 Signed Impressions: Service Date/Time: Thursday, April 27, 2017 11:00 - CONCLUSION: 1. No acute intracranial abnormality. 2. Complete opacification left maxillary sinus. Keagan Shipman MD Renal Ultrasound 04/27/17 0000 Signed Impressions: Service Date/Time: Thursday, April 27, 2017 23:50 - CONCLUSION: Negative renal sonogram. Rogerio Gunn MD Objective Remarks GENERAL: 61 year old male, critically ill currently orotracheally intubated SKIN: Warm and dry. No rash HEAD: Normocephalic. EYES: No scleral icterus. Pupils are round 3 mm bilaterally and reactive No injection or drainage. NECK: Supple, trachea midline. No JVD or lymphadenopathy. CARDIOVASCULAR: RRR. S1, S2 no S4 without murmur RESPIRATORY: Breath sounds equal bilaterally. No accessory muscle use. GASTROINTESTINAL: Slightly distended. Hypoactive bowel sounds appreciated throughout. MUSCULOSKELETAL: No significant peripheral edema Neuro: Positive gag. Positive corneal reflex. Withdraws to pain and moves spontaneously and all 4 extremities. Not following commands on brief sedation hold Date of Insertion: Apr 28, 2017 Line: Central Venous Catheter Side: Right Location: Femoral A/P Assessment and Plan Neuro/Psych: Acute encephalopathy likely secondary to EtOH withdrawal/sepsis/hyperammonia Alcohol dependence Patient does drink 1/5 of vodka daily. Currently on fentanyl drip at 200 an hour for analgesia while intubated Goal of RA SS -2, Daily sedation vacation Dexmedetomidine drip if needed to facilitate ventilator weaning Thiamine, folate and multivitamin daily CT brain 04/27 revealed left maxillary sinusitis otherwise no acute intra- cranial findings Patient does have a history of EtOH withdrawal seizures. Seizure precautions CV: Severe sepsis Lactic acidosis- cleared Currently weaned off pressors monitor HR and BP keep MAP>65mmHg Lactic acid 1.7 04/29 Resp: COPD Ongoing tobaccoism PRVC 16/550/1/5/40, Ventilator bundle Scheduled albuterol/ipratropium aerosols every 6 hours with albuterol aerosols every 2 hours when necessary dyspnea CT thorax 04/28 revealed left lingula infiltrate. Small bilateral pleural effusions. Spontaneous breathing trials starting today Nicotine patch 14 mg daily. GI: Hyperammonia - Elevated AST Hypoalbuminemia - mild protein calorie malnutrition Hiatal hernia Sigmoid diverticulosis Hepatic steatosis s/p EGD 04/30: Esophagitis, gastritis, food impaction in distal esophagus removed. s/p NGT placement by IR/26 Jevity 1.5 at 10 cc an hour goal 60 cc an hour per nutrition's recommendations Pantoprazole for GI prophylaxis Docusate sodium/senna 1 tablet twice a day for bowel regimen Currently on lactulose 30 cc every 6 hours and Xifaxan 550 mg by mouth twice a day for elevated ammonia. : Right kidney nonobstructing stone 3 mm Renal ultrasound revealed no hydronephrosis Monitor renal function, I/O's, electrolytes replacement per protocol. Bumex 2 mg 1 with IV albumin Endo: Sliding-scale insulin to maintain euglycemia with Accu-Cheks every 6 hours with low regimen with Novulin R SH: 3.14 04/28 Heme: Macrocytic anemia Thrombocytopenia - was 211 07/21 Likely secondary to EtOH/chronic liver disease possibility of underlying sepsis There are no signs of consumption or hemolysis. Patient was transfused 2 pack platelets and 2 PRBC 04/28. Follow CBC daily. Monitor trends. ID: Severe sepsis - unclear source Continue abx( piperacillin/tazobactam, Azithromycin and vanco)monitor for signs of infections ( Fever, WBC) Pertinent cultures Blood cultures 2 -04/27 -no growth to date Urine culture - 04/27 -50 - 100,000 mixed gram-positive Sputum 04/28- normal resp andrea Urine pneumococcal and Legionella antigens negative MSK: PT evaluate and treat FEN: Hypo-magnesium 2 g mag sulfate IV 1. Schedule mag oxide 400 mg twice a day 2 days. Recheck magnesium in a.m. Access - Right IJ placed 04/29. Right radial arterial line Prophylaxis - GI - pantoprazole - DVT - SCD/no pharmacological prophylaxis in light of thrombocytopenia Critical care time 30 minutes Esteban Raines MD May 03, 2017 13:04
[2017-05-04] VITALS (34 sets, daily range): BP systolic 86–130; BP diastolic 54–83; PULSE 84–109; RESP 14–37; TEMP 98.2–98.8; O2SAT 92–100
[2017-05-04] MEDS: PIPERACIL-TAZO 4.5 GM PREMIX 100 ML IV SCH ×4 (00:28→17:15)
[2017-05-04] MEDS: LORazepam 2 MG/ML VIAL IV PUSH PRN (01:15)
[2017-05-04] MEDS: LACTULOSE SYRUP 20 GM/30 ML CUP PO SCH ×4 (01:15→20:00)
[2017-05-04] MEDS: RESP: ALBUTEROL 2.5 MG/IPRATROPIUM 0.5 MG NEB (SCH) INH ×4 (02:49→19:52)
[2017-05-04] MEDS: ARTIFICIAL TEARS OPTH SOLN 15 ML BTL EACH EYE SCH ×3 (05:12→22:15)
[2017-05-04] MEDS: POLYETHYLENE GLYCOL 17 GM PKG PO SCH (08:21)
[2017-05-04] MEDS: MAGNESIUM OXIDE 400 MG TAB PO SCH (08:21)
[2017-05-04] MEDS: MULTIVITAMIN TAB PO SCH (08:21)
[2017-05-04] MEDS: RIFAXIMIN 550 MG TAB PO SCH ×2 (08:21→21:00)
[2017-05-04] MEDS: FOLIC ACID 1 MG TAB PO SCH (08:21)
[2017-05-04] MEDS: THIAMINE HCL 100 MG TAB PO SCH (08:21)
[2017-05-04] MEDS: SODIUM CHLORIDE 0.9% FLUSH 10 ML FLUSH IVF SCH (08:22)
[2017-05-04] MEDS: DOCUSATE SODIUM 50 MG/SENNA 8.6 MG TAB PO SCH ×2 (08:22→21:00)
[2017-05-04] MEDS: PANTOPRAZOLE SODIUM 40 MG VIAL IV PUSH SCH (08:22)
[2017-05-04] MEDS: GABAPENTIN 300 MG CAP PO SCH ×3 (08:22→17:15)
[2017-05-04] MEDS: NICOTINE 14 MG/24 HR PATCH T-DERMAL SCH (08:22)
[2017-05-04] MEDS: CHLORHEXIDINE 0.12% (ORAL KIT) 15 ML CUP MT SCH ×2 (08:23→20:00)
[2017-05-04] MEDS: REMOVE OLD PATCH T-DERMAL SCH (08:51)
--- NOTE | 2017-05-04 09:06 | HHI.CCPN ---
Subjective Remarks/Hospital Course 61yM with h/o prior hepatic encephalopathy, etoh abuse, tobacco abuse, now admitted with weakness, fever, chills, worsening hypotension. called by hospitalist service overnight for clinical decline despite ivf resuscitation. Patient does complain of flank pain, but denies chest pain, abdominal pain. u/a +. started earlier on vanc/zosyn. has not voided. becoming worseningly agitated. unable to provide any additional information due to altered mental status. 04/28: Chart reviewed. Patient still quite agitated stating "I have to pee" patient has a Young catheter. Complaining of flank pain. Noted renal ultrasound negative. Currently on norepinephrine at 12 mg per minute. 04/29: Resting in bed in no acute distress. Currently on norepinephrine at 7 per minute for vasopressor support. Transfuse 2 units PRBC and 2 pack platelets overnight. Dilutional. Absolutely no signs of active bleeding. 04/30 Patient is sedated with Fentanyl and intubated. On Levophed 5 mics. Afebrile. For EGD today. 05/01 No events overnight. Sedated and intubated. On Levophed 4 mics. s/p EGD yesterday with shoed esophagitis, gastritis, food impaction in distal esophagus removed. Subjective 05/02: Afebrile. Off all vasopressors. NG tube advanced by IR yesterday. Feeding to be initiated today. Currently on fentanyl drip 05/03: Remains intubated sedated and not following commands remains on fentanyl infusion. Attempt CPAP trial if patient wakeful enough. Urine output minimal only 300 mL in 24 hours. Will give albumin and Bumex 05/04 Patient is sedated with Fentanyl and intubated. Afebrile. Objective Vital Signs Date Time Temp Pulse Resp B/P (MAP) Pulse Ox O2 Delivery O2 Flow Rate FiO2 05/04/17 07:27 100 35 05/04/17 06:00 85 05/04/17 04:00 98.8 18 123/80 (94) Intake and Output 05/04/17 05/04/17 05/04/17 07:59 15:59 23:59 Intake Total 1222 ml Output Total 400 ml Balance 822 ml Result Diagram: 05/03/1743205/03/17432 Imaging Last Impressions Chest X-Ray 05/03/17 0600 Signed Impressions: Service Date/Time: April 05:07 - CONCLUSION: 1. Support apparatus unchanged. Slight increase in basilar airspace disease. Paco Ramirez MD Abdomen Fluoroscopy 05/01/17 Signed Impressions: Service Date/Time: Monday, May 01, 2017 13:13 - CONCLUSION: Uncomplicated nasogastric tube placement as above. Zain Kumar MD Lower Extremity Ultrasound 04/28/17 Signed Impressions: Service Date/Time: Friday, April 28, 2017 16:47 - CONCLUSION: Negative exam with no evidence of deep venous thrombosis. Johnathon White MD Chest CT 04/28/17 Signed Impressions: Service Date/Time: Friday, April 28, 2017 11:03 - CONCLUSION: 1. Small bilateral pleural effusions with atelectasis in both lower lobes. There is also a focal area of groundglass opacity in the lingula that is nonspecific but could represent an infectious or inflammatory process. 2. Moderate size hiatal hernia with dilated and fluid-filled esophagus suggesting gastroesophageal reflux. The nasogastric tube distal tip is in the distal esophagus and should ideally be advanced into the stomach. Olu Triana MD Abdomen/Pelvis CT 04/28/17 Signed Impressions: Service Date/Time: Friday, April 28, 2017 11:03 - CONCLUSION: 1. Small volume of free fluid within the abdomen and pelvis from uncertain etiology. Otherwise, no acute abnormality is identified within the abdomen or pelvis. 2. Nonacute findings include hepatic steatosis, moderate size hiatal hernia, 3 mm nonobstructing right renal stone, and sigmoid diverticulosis. Olu Triana MD Abdomen X-Ray 04/28/17 Signed Impressions: Service Date/Time: Friday, April 28, 2017 19:08 - CONCLUSION: Nasogastric tube with the tip at the level of the distal esophagus. The tube could be advanced at least 10 cm. Johnathon White MD Head CT 04/27/17 1017 Signed Impressions: Service Date/Time: Thursday, April 27, 2017 11:00 - CONCLUSION: 1. No acute intracranial abnormality. 2. Complete opacification left maxillary sinus. Keagan Shipman MD Renal Ultrasound 04/27/17 0000 Signed Impressions: Service Date/Time: Thursday, April 27, 2017 23:50 - CONCLUSION: Negative renal sonogram. Rogerio Gunn MD Objective Remarks GENERAL: 61 year old male, critically ill currently orotracheally intubated SKIN: Warm and dry. No rash HEAD: Normocephalic. EYES: No scleral icterus. Pupils are round 3 mm bilaterally and reactive No injection or drainage. NECK: Supple, trachea midline. No JVD or lymphadenopathy. CARDIOVASCULAR: RRR. S1, S2 no S4 without murmur RESPIRATORY: Breath sounds equal bilaterally. No accessory muscle use. GASTROINTESTINAL: Slightly distended. Hypoactive bowel sounds appreciated throughout. MUSCULOSKELETAL: No significant peripheral edema Neuro: Positive gag. Positive corneal reflex. Withdraws to pain and moves spontaneously and all 4 extremities. Not following commands on brief sedation hold Date of Insertion: Apr 28, 2017 Line: Central Venous Catheter Side: Right Location: Femoral A/P Assessment and Plan Neuro/Psych: Acute encephalopathy likely secondary to EtOH withdrawal/sepsis/hyperammonia Alcohol dependence Patient does drink 1/5 of vodka daily. Currently on fentanyl drip at 200 an hour for analgesia while intubated Goal of RA SS -2, Daily sedation vacation Dexmedetomidine drip if needed to facilitate ventilator weaning Thiamine, folate and multivitamin daily CT brain 04/27 revealed left maxillary sinusitis otherwise no acute intra- cranial findings Patient does have a history of EtOH withdrawal seizures. Seizure precautions CV: Severe sepsis Lactic acidosis- cleared Monitor HR and BP keep MAP>65mmHg Lactic acid 1.7 04/29 Resp: COPD Ongoing tobaccoism PRVC 16/550///40, Ventilator bundle Scheduled albuterol/ipratropium aerosols every 6 hours with albuterol aerosols every 2 hours when necessary dyspnea CT thorax 04/28 revealed left lingula infiltrate. Small bilateral pleural effusions. Spontaneous breathing trials daily as liudmila. Nicotine patch 14 mg daily. GI: Hyperammonia - Elevated AST Hypoalbuminemia - mild protein calorie malnutrition Hiatal hernia Sigmoid diverticulosis Hepatic steatosis Check KUB abdomen r/o ileus s/p EGD 04/30: Esophagitis, gastritis, food impaction in distal esophagus removed. s/p NGT placement by IR/26 Jevity 1.5 at 60 cc an hour per nutrition's recommendations Pantoprazole for GI prophylaxis Docusate sodium/senna 1 tablet twice a day for bowel regimen Currently on lactulose 30 cc every 6 hours and Xifaxan 550 mg by mouth twice a day for elevated ammonia. : Right kidney nonobstructing stone 3 mm Renal ultrasound revealed no hydronephrosis Monitor renal function, I/O's, electrolytes replacement per protocol. Endo: Sliding-scale insulin to maintain euglycemia with Accu-Cheks every 6 hours with low regimen with Novulin R SH: 3.14 04/28 Heme: Macrocytic anemia Thrombocytopenia Likely secondary to EtOH/chronic liver disease possibility of underlying sepsis There are no signs of consumption or hemolysis. Patient was transfused 2 pack platelets and 2 PRBC 04/28. Follow CBC daily. Monitor trends. ID: Severe sepsis - unclear source Continue abx( piperacillin/tazobactam)monitor for signs of infections ( Fever, WBC) d/c Azithromycin Pertinent cultures Blood cultures 2 -04/27 -no growth to date Urine culture - 04/27 -50 - 100,000 mixed gram-positive Sputum 04/28- normal resp andrea Urine pneumococcal and Legionella antigens negative MSK: PT evaluate and treat Access - Right IJ placed 04/29. Prophylaxis - GI - pantoprazole - DVT - SCD/no pharmacological prophylaxis in light of thrombocytopenia Follow up on labs today Critical care time 30 minutes Don Rod MD May 04, 2017 09:06
[2017-05-04 12:32] LABS: AUTOMATED NEUTROPHIL # 11.7 TH/MM3 (1.8-7.7); BASOPHIL # 0.1 TH/MM3 (0-0.2); BASOPHIL % 0.7 % (0.0-2.0); EOSINOPHIL # 0.1 TH/MM3 (0-0.4); EOSINOPHIL % 1.1 % (0.0-4.0); HEMATOCRIT 28.3 % (39.0-51.0); LYMPH % 3.5 % (9.0-44.0); LYMPHOCYTE # 0.5 TH/MM3 (1.0-4.8); MEAN CELL VOLUME 109.3 FL (80.0-100.0); MEAN CORPUSCULAR HEMOGLOBIN 35.7 PG (27.0-34.0); MEAN CORPUSCULAR HGB CONC 32.6 % (32.0-36.0); NEUT % 85.7 % (16.0-70.0); PLATELET COUNT 93 TH/MM3 (150-450); RED BLOOD COUNT 2.59 MIL/MM3 (4.50-5.90); RED CELL DISTRIBUTION WIDTH 25.7 % (11.6-17.2); WHITE BLOOD COUNT 13.7 TH/MM3 (4.0-11.0)
[2017-05-04 12:36] LABS: HEMO FLAGS AUTO DIFF
[2017-05-04 12:46] LABS: ANION GAP 7 MEQ/L (5-15); AST (GOT) 53 U/L (15-37); BICARBONATE 26.1 MEQ/L (21.0-32.0); BLOOD UREA NITROGEN 16 MG/DL (7-18); CHLORIDE 109 MEQ/L (98-107); GLOMERULAR FILTRATION RATE 82 ML/MIN (>89); MAGNESIUM 1.5 MG/DL (1.5-2.5); POTASSIUM 3.7 MEQ/L (3.5-5.1); SODIUM (NA) 142 MEQ/L (136-145)
[2017-05-04 12:50] LABS: ALKALINE PHOSPHATASE 96 U/L (45-117); ALT (GPT) 25 U/L (12-78); TOTAL BILIRUBIN ADULT 1.1 MG/DL (0.2-1.0)
[2017-05-04 13:37] LABS: PLATELET ESTIMATE SMEAR LOW (NORMAL); PLATELET MORPHOLOGY NORMAL (NORMAL); SCAN/DIFF AUTO DIFF CONFIRMED
--- NOTE | 2017-05-04 16:03 | RADRPT ---
EXAM DATE/TIME: 05/04/2017 14:53 [facility] COMPARISON: CHEST SINGLE AP, May 03, 2017, 5:07. INDICATIONS : Short of breath. MEDICAL HISTORY : Chronic obstructive pulmonary disease. SURGICAL HISTORY : None. ENCOUNTER: Initial ACUITY: 1 week PAIN SCORE: Non-responsive. LOCATION: Bilateral chest FINDINGS: ET tube and nasogastric tube have been removed. Right lung remains clear. There is persistent mild loss left base. The heart remains enlarged. There is mild interstitial edema present. CONCLUSION: Stable chest following extubation. Patricio Kumar MD FACR on May 04, 2017 at 16:01 Board Certified Radiologist. This report was verified electronically.
--- NOTE | 2017-05-04 16:10 | RADRPT ---
EXAM DATE/TIME: 05/04/2017 14:40 [facility] COMPARISON: No previous studies available for comparison. INDICATIONS : Rule out ileus MEDICAL HISTORY : Chronic obstructive pulmonary disease. Seizures SURGICAL HISTORY : None. ENCOUNTER: Initial ACUITY: 1 week PAIN SCORE: Non-responsive. LOCATION: Bilateral abdomen FINDINGS: There is moderate gaseous distension of colon. The cecum is dilated to 10 cm. Minimal small bowel gas is evident. Solid stool is seen in the rectum. CONCLUSION: Gaseous distension of predominantly colon. This suggests more of an ileus. Patricio Kumar MD FACR on May 04, 2017 at 16:02 Board Certified Radiologist. This report was verified electronically.
[2017-05-04] MEDS ORDERED: METHYLNALTREXONE BROMIDE 12 MG/0.6 ML VIAL SQ ONE (16:30)
--- NOTE | 2017-05-04 16:51 | HHI.GIFU ---
Subjective Remarks GI reconsulted for ileus. Pt has had worsening abd distention, no BM in 5 days. (Renee Nieves) Objective Vitals I&O Vital Signs Date Time Temp Pulse Resp B/P (MAP) Pulse Ox O2 Delivery O2 Flow Rate FiO2 05/04/17 16:00 100 05/04/17 15:41 93 35 05/04/17 15:31 109 05/04/17 15:00 105 05/04/17 14:30 102 05/04/17 14:00 86 05/04/17 13:49 97 35 05/04/17 13:30 87 05/04/17 13:00 96 05/04/17 12:40 99 05/04/17 12:00 35 05/04/17 12:00 94 05/04/17 12:00 94 27 116/76 (89) 94 05/04/17 12:00 94 27 116/76 (89) 94 05/04/17 11:31 100 35 123/81 (95) 95 05/04/17 11:31 100 05/04/17 11:01 101 37 130/83 (99) 92 05/04/17 11:01 101 05/04/17 10:30 87 05/04/17 10:30 87 17 96/67 (77) 93 05/04/17 10:04 85 05/04/17 10:04 85 14 93/61 (72) 97 05/04/17 10:03 97 35 05/04/17 10:03 35 05/04/17 10:00 84 05/04/17 10:00 84 17 87/55 (66) 97 05/04/17 09:30 85 05/04/17 09:30 85 16 89/62 (71) 97 05/04/17 09:00 92 18 86/54 (65) 99 05/04/17 09:00 92 05/04/17 08:30 97 05/04/17 08:30 97 05/04/17 08:30 97 26 91/63 (72) 97 05/04/17 08:00 35 05/04/17 08:00 93 05/04/17 08:00 93 05/04/17 08:00 93 21 92/57 (69) 94 05/04/17 07:27 100 35 05/04/17 06:00 85 05/04/17 04:07 99 35 05/04/17 04:00 35 05/04/17 04:00 98.8 95 18 123/80 (94) 99 05/04/17 04:00 96 05/04/17 02:00 85 05/04/17 00:18 100 35 05/04/17 00:00 98.8 90 18 90/59 (69) 99 05/04/17 00:00 89 05/04/17 00:00 35 05/03/17 22:00 89 05/03/17 20:00 98.8 103 24 117/75 (89) 99 Arterial Line 05/03/17 20:00 82 05/03/17 20:00 35 05/03/17 19:44 97 35 05/03/17 17:45 94 35 I/O 05/03/17 05/03/17 05/03/17 05/04/17 05/04/17 05/04/17 07:00 15:00 23:00 07:00 15:00 23:00 Intake Total 480 ml 360 ml 1222 ml Output Total 200 ml 1550 ml 400 ml Balance 280 ml 360 ml -1550 ml 822 ml Intake Oral 0 ml IV Total 100 ml 360 ml Tube Feeding 380 ml 1102 ml Other 120 ml Output Urine Total 200 ml 1550 ml 400 ml Tube Feeding Residual Discard 0 ml # Bowel Movements 0 0 0 Laboratory Laboratory Tests Test 05/04/17 12:14 White Blood Count 13.7 Red Blood Count 2.59 Hemoglobin 9.2 Hematocrit 28.3 Mean Corpuscular Volume 109.3 Mean Corpuscular Hemoglobin 35.7 Mean Corpuscular Hemoglobin Concent 32.6 Red Cell Distribution Width 25.7 Platelet Count 93 Mean Platelet Volume 10.7 Neutrophils (%) (Auto) 85.7 Lymphocytes (%) (Auto) 3.5 Monocytes (%) (Auto) 9.0 Eosinophils (%) (Auto) 1.1 Basophils (%) (Auto) 0.7 Neutrophils # (Auto) 11.7 Lymphocytes # (Auto) 0.5 Monocytes # (Auto) 1.2 Eosinophils # (Auto) 0.1 Basophils # (Auto) 0.1 CBC Comment AUTO DIFF Differential Comment AUTO DIFF CONFIRMED Platelet Estimate LOW Platelet Morphology Comment NORMAL Blood Urea Nitrogen 16 Creatinine 0.94 Random Glucose 120 Total Protein 5.3 Albumin 2.1 Calcium Level 8.2 Phosphorus Level 3.2 Magnesium Level 1.5 Alkaline Phosphatase 96 Aspartate Amino Transf (AST/SGOT) 53 Alanine Aminotransferase (ALT/SGPT) 25 Total Bilirubin 1.1 Sodium Level 142 Potassium Level 3.7 Chloride Level 109 Carbon Dioxide Level 26.1 Anion Gap 7 Estimat Glomerular Filtration Rate 82 Ammonia 45 Date/Time Source Procedure Growth Status 04/27/17 14:15 Blood Peripheral Aerobic Blood Culture - Final NO GROWTH IN 5 DAYS Complete 04/27/17 14:15 Blood Peripheral Anaerobic Blood Culture - Final NO GROWTH IN 5 DAYS Complete 04/28/17 14:45 Sputum Endotracheal Gram Stain - Final Complete 04/28/17 14:45 Sputum Endotracheal Sputum Culture - Final LIGHT GROWTH NORMAL RESPIRATORY ANDREA Complete 04/28/17 14:48 Urine Catheterized Urine Legionella Antigen - Final PRESUMPTIVE NEGATIVE FOR LEGIONELLA P... Complete 04/28/17 14:48 Urine Catheterized Urine Streptococcus pneumoniae Antigen (M - Final PRESUMPTIVE NEGATIVE FOR STREPTOCOCCU... Complete Imaging Last Impressions Chest X-Ray 05/03/17 0600 Signed Impressions: Service Date/Time: April 05:07 - CONCLUSION: 1. Support apparatus unchanged. Slight increase in basilar airspace disease. Paco Ramirez MD Abdomen Fluoroscopy 05/01/17 0000 Signed Impressions: Service Date/Time: Monday, May 01, 2017 13:13 - CONCLUSION: Uncomplicated nasogastric tube placement as above. Zain Kumar MD Lower Extremity Ultrasound 04/28/17 0000 Signed Impressions: Service Date/Time: Friday, April 28, 2017 16:47 - CONCLUSION: Negative exam with no evidence of deep venous thrombosis. Johnathon White MD Chest CT 04/28/17 0000 Signed Impressions: Service Date/Time: Friday, April 28, 2017 11:03 - CONCLUSION: 1. Small bilateral pleural effusions with atelectasis in both lower lobes. There is also a focal area of groundglass opacity in the lingula that is nonspecific but could represent an infectious or inflammatory process. 2. Moderate size hiatal hernia with dilated and fluid-filled esophagus suggesting gastroesophageal reflux. The nasogastric tube distal tip is in the distal esophagus and should ideally be advanced into the stomach. Olu Triana MD Abdomen/Pelvis CT 04/28/17 0000 Signed Impressions: Service Date/Time: Friday, April 28, 2017 11:03 - CONCLUSION: 1. Small volume of free fluid within the abdomen and pelvis from uncertain etiology. Otherwise, no acute abnormality is identified within the abdomen or pelvis. 2. Nonacute findings include hepatic steatosis, moderate size hiatal hernia, 3 mm nonobstructing right renal stone, and sigmoid diverticulosis. Olu Triana MD Abdomen X-Ray 04/28/17 0000 Signed Impressions: Service Date/Time: Friday, April 28, 2017 19:08 - CONCLUSION: Nasogastric tube with the tip at the level of the distal esophagus. The tube could be advanced at least 10 cm. Johnathon White MD Head CT 04/27/17 1017 Signed Impressions: Service Date/Time: Thursday, April 27, 2017 11:00 - CONCLUSION: 1. No acute intracranial abnormality. 2. Complete opacification left maxillary sinus. Keagan Shipman MD Renal Ultrasound 04/27/17 0000 Signed Impressions: Service Date/Time: Thursday, April 27, 2017 23:50 - CONCLUSION: Negative renal sonogram. Rogerio Gunn MD Physical Exam HEENT: Normocephalic CHEST: OETT to vent. coarse breath sounds CARDIAC: RRR ABDOMEN: semi firm, distended, hypoactive bowel sounds, EXTREMITIES: Generalized edema. SKIN: ecchymosis left flank HOSPICE VOL[employer]TEER: intubated on vent (Renee Nieves) Assessment and Plan Plan ASSESSMENT - ileus- no BM 5d, worsening distention, on aggressive bowel regimen still no BM. KUB shows cecum dilated 10cm, min small bowel gas, solid stool rectum, suggestive ileus 2 x SSE - Anemia, macrocytic. S/P EGD (04/30/17)---> Martinez esophagus, Esophagitis, Gastritis, Foreign body in the distal esophagus. Pathology reactive gastropathy. S/P 2 units RBC, 2 units Platelets. Vitamin B12 1298. HH stable. PPI - Martinez's Esophagus, Esophagitis, Gastritis. Pathology reactive gastropathy. PPI - Foreign body in distal esophagus, s/p removal. - Elevated ammonia, acute encephalopathy. Ammonia 45. Lactulose, Xifaxan. - Elevated bilirubin. CT as above. History of ETOH abuse, drinks 1/5 of vodka daily. Hypoalbuminemia with albumin 2.1. mild coagulopathy. Suspect liver cirrhosis, likely secondary to alcohol, fatty liver disease. - Thrombocytopenia. S/P 2 platelet transfusion. - Sepsis, unclear source. Urine negative for legionella, streptococcus, sputum cx with light growth normal respiratory andrea. CT reveals possible pneumonia. Vanco, Azithromycin - Respiratory failure, COPD. Vent per [facility]. PLAN - decompressive colonoscopy today - obtain consent - 2 x SSE now - hold TF - Cont. Xifaxan - Cont. PPI - Cont. Reglan - cont miralax - Monitor labs - Supportive care - Further recommendations to follow based on results of above. - Patient seen and examined by Dr. Moses and myself and this note is written on his behalf. (Renee Nieves) Plan Patient was seen and examined, agree with above Notes except that when I gave the patient to enemas to prep him for decompressive colonoscopy he had significant amount of stool coming out and his bili was less than distended and seems to be more comfortable we will plan on doing KUB tomorrow or CT scan, if it continue to be distended then we will do colonoscopy we will place rectal tube meanwhile (Jassi Moses MD) Renee Nieves May 04, 2017 16:51 Jassi Moses MD May 04, 2017 18:08
[2017-05-04] MEDS ORDERED: DIATRIZOATE MEGLUM/DIATRIZOATE SOD 9 ML CUP PO ONE (17:30)
[2017-05-05] VITALS (18 sets, daily range): BP systolic 95–126; BP diastolic 57–79; PULSE 79–105; RESP 15–34; TEMP 97.8–98.6; O2SAT 91–99
[2017-05-05] MEDS: LACTULOSE SYRUP 20 GM/30 ML CUP PO SCH ×4 (00:23→20:00)
[2017-05-05] MEDS: PIPERACIL-TAZO 4.5 GM PREMIX 100 ML IV SCH ×4 (00:35→17:08)
[2017-05-05] MEDS: fentaNYL DRIP 250 ML IV PRN ×2 (00:49→06:01)
[2017-05-05] MEDS: RESP: ALBUTEROL 2.5 MG/IPRATROPIUM 0.5 MG NEB (SCH) INH ×5 (03:19→23:21)
[2017-05-05] MEDS: ARTIFICIAL TEARS OPTH SOLN 15 ML BTL EACH EYE SCH ×3 (06:00→20:55)
[2017-05-05 06:09] LABS: AUTOMATED NEUTROPHIL # 11.7 TH/MM3 (1.8-7.7); BASOPHIL # 0.1 TH/MM3 (0-0.2); BASOPHIL % 0.9 % (0.0-2.0); EOSINOPHIL # 0.2 TH/MM3 (0-0.4); EOSINOPHIL % 1.2 % (0.0-4.0); LYMPH % 3.9 % (9.0-44.0); LYMPHOCYTE # 0.5 TH/MM3 (1.0-4.8); MEAN CELL VOLUME 109.3 FL (80.0-100.0); MEAN CORPUSCULAR HEMOGLOBIN 35.3 PG (27.0-34.0); MEAN CORPUSCULAR HGB CONC 32.3 % (32.0-36.0); MONO % 8.8 % (0.0-8.0); NEUT % 85.2 % (16.0-70.0); PLATELET COUNT 111 TH/MM3 (150-450); RED BLOOD COUNT 2.56 MIL/MM3 (4.50-5.90); RED CELL DISTRIBUTION WIDTH 25.2 % (11.6-17.2); WHITE BLOOD COUNT 13.7 TH/MM3 (4.0-11.0)
[2017-05-05 06:25] LABS: HEMO FLAGS AUTO DIFF
[2017-05-05 06:31] LABS: ANION GAP 10 MEQ/L (5-15); AST (GOT) 47 U/L (15-37); BICARBONATE 24.9 MEQ/L (21.0-32.0); BLOOD UREA NITROGEN 16 MG/DL (7-18); CHLORIDE 108 MEQ/L (98-107); GLOMERULAR FILTRATION RATE 113 ML/MIN (>89); POTASSIUM 3.9 MEQ/L (3.5-5.1); SODIUM (NA) 143 MEQ/L (136-145)
[2017-05-05 06:36] LABS: ALKALINE PHOSPHATASE 92 U/L (45-117); ALT (GPT) 24 U/L (12-78); TOTAL BILIRUBIN ADULT 1.2 MG/DL (0.2-1.0)
[2017-05-05] MEDS: DEXMEDETOMIDINE INJ 200 MCG in SODIUM CHLORIDE 0.9% INJ 50 ML IV PRN ×2 (07:35→10:19)
[2017-05-05 07:55] LABS: PLATELET ESTIMATE SMEAR LOW (NORMAL); PLATELET MORPHOLOGY ENLARGED (NORMAL); SCAN/DIFF AUTO DIFF CONFIRMED
[2017-05-05] MEDS: CHLORHEXIDINE 0.12% (ORAL KIT) 15 ML CUP MT SCH ×2 (08:00→20:55)
--- NOTE | 2017-05-05 08:24 | HHI.CCPN ---
Subjective Remarks/Hospital Course 61yM with h/o prior hepatic encephalopathy, etoh abuse, tobacco abuse, now admitted with weakness, fever, chills, worsening hypotension. called by hospitalist service overnight for clinical decline despite ivf resuscitation. Patient does complain of flank pain, but denies chest pain, abdominal pain. u/a +. started earlier on vanc/zosyn. has not voided. becoming worseningly agitated. unable to provide any additional information due to altered mental status. 04/28: Chart reviewed. Patient still quite agitated stating "I have to pee" patient has a Young catheter. Complaining of flank pain. Noted renal ultrasound negative. Currently on norepinephrine at 12 mg per minute. 04/29: Resting in bed in no acute distress. Currently on norepinephrine at 7 per minute for vasopressor support. Transfuse 2 units PRBC and 2 pack platelets overnight. Dilutional. Absolutely no signs of active bleeding. 04/30 Patient is sedated with Fentanyl and intubated. On Levophed 5 mics. Afebrile. For EGD today. 05/01 No events overnight. Sedated and intubated. On Levophed 4 mics. s/p EGD yesterday with shoed esophagitis, gastritis, food impaction in distal esophagus removed. Subjective 05/02: Afebrile. Off all vasopressors. NG tube advanced by IR yesterday. Feeding to be initiated today. Currently on fentanyl drip 05/03: Remains intubated sedated and not following commands remains on fentanyl infusion. Attempt CPAP trial if patient wakeful enough. Urine output minimal only 300 mL in 24 hours. Will give albumin and Bumex 05/04 Patient is sedated with Fentanyl and intubated. Afebrile. 05/05 Patient was self extubated last night. For possible decompressive colonoscopy today. Afebrile. Objective Vital Signs Date Time Temp Pulse Resp B/P (MAP) Pulse Ox O2 Delivery O2 Flow Rate FiO2 05/05/17 06:00 105 05/05/17 04:00 98.6 17 118/76 (90) 95 05/04/17 19:52 Nasal Cannula 4.00 05/04/17 16:46 35 Intake and Output 05/05/17 05/05/17 05/06/17 08:00 16:00 00:00 Intake Total 1165 ml Output Total 250 ml Balance 915 ml Result Diagram: 05/05/17 0506 05/05/17 0506 Other Results Laboratory Tests Test 05/04/17 12:14 05/05/17 05:06 White Blood Count 13.7 TH/MM3 13.7 TH/MM3 Red Blood Count 2.59 MIL/MM3 2.56 MIL/MM3 Hemoglobin 9.2 GM/DL 9.0 GM/DL Hematocrit 28.3 % 28.0 % Mean Corpuscular Volume 109.3 FL 109.3 FL Mean Corpuscular Hemoglobin 35.7 PG 35.3 PG Mean Corpuscular Hemoglobin Concent 32.6 % 32.3 % Red Cell Distribution Width 25.7 % 25.2 % Platelet Count 93 TH/MM3 111 TH/MM3 Mean Platelet Volume 10.7 FL 10.6 FL Neutrophils (%) (Auto) 85.7 % 85.2 % Lymphocytes (%) (Auto) 3.5 % 3.9 % Monocytes (%) (Auto) 9.0 % 8.8 % Eosinophils (%) (Auto) 1.1 % 1.2 % Basophils (%) (Auto) 0.7 % 0.9 % Neutrophils # (Auto) 11.7 TH/MM3 11.7 TH/MM3 Lymphocytes # (Auto) 0.5 TH/MM3 0.5 TH/MM3 Monocytes # (Auto) 1.2 TH/MM3 1.2 TH/MM3 Eosinophils # (Auto) 0.1 TH/MM3 0.2 TH/MM3 Basophils # (Auto) 0.1 TH/MM3 0.1 TH/MM3 CBC Comment AUTO DIFF AUTO DIFF Differential Comment AUTO DIFF CONFIRMED AUTO DIFF CONFIRMED Platelet Estimate LOW LOW Platelet Morphology Comment NORMAL ENLARGED Blood Urea Nitrogen 16 MG/DL 16 MG/DL Creatinine 0.94 MG/DL 0.71 MG/DL Random Glucose 120 MG/DL 82 MG/DL Total Protein 5.3 GM/DL 5.3 GM/DL Albumin 2.1 GM/DL 1.9 GM/DL Calcium Level 8.2 MG/DL 8.5 MG/DL Phosphorus Level 3.2 MG/DL Magnesium Level 1.5 MG/DL Alkaline Phosphatase 96 U/L 92 U/L Aspartate Amino Transf (AST/SGOT) 53 U/L 47 U/L Alanine Aminotransferase (ALT/SGPT) 25 U/L 24 U/L Total Bilirubin 1.1 MG/DL 1.2 MG/DL Sodium Level 142 MEQ/L 143 MEQ/L Potassium Level 3.7 MEQ/L 3.9 MEQ/L Chloride Level 109 MEQ/L 108 MEQ/L Carbon Dioxide Level 26.1 MEQ/L 24.9 MEQ/L Anion Gap 7 MEQ/L 10 MEQ/L Estimat Glomerular Filtration Rate 82 ML/MIN 113 ML/MIN Ammonia 45 MCMOL/L Imaging Last Impressions Chest X-Ray 05/04/17 Signed Impressions: Service Date/Time: Thursday, May 04, 2017 14:53 - CONCLUSION: Stable chest following extubation. Patricio Kumar MD FACR Abdomen Fluoroscopy 05/01/17 Signed Impressions: Service Date/Time: Monday, May 01, 2017 13:13 - CONCLUSION: Uncomplicated nasogastric tube placement as above. Zain Kumar MD Lower Extremity Ultrasound 04/28/17 Signed Impressions: Service Date/Time: Friday, April 28, 2017 16:47 - CONCLUSION: Negative exam with no evidence of deep venous thrombosis. Johnathon White MD Chest CT 04/28/17 Signed Impressions: Service Date/Time: Friday, April 28, 2017 11:03 - CONCLUSION: 1. Small bilateral pleural effusions with atelectasis in both lower lobes. There is also a focal area of groundglass opacity in the lingula that is nonspecific but could represent an infectious or inflammatory process. 2. Moderate size hiatal hernia with dilated and fluid-filled esophagus suggesting gastroesophageal reflux. The nasogastric tube distal tip is in the distal esophagus and should ideally be advanced into the stomach. Olu Triana MD Abdomen/Pelvis CT 04/28/17 Signed Impressions: Service Date/Time: Friday, April 28, 2017 11:03 - CONCLUSION: 1. Small volume of free fluid within the abdomen and pelvis from uncertain etiology. Otherwise, no acute abnormality is identified within the abdomen or pelvis. 2. Nonacute findings include hepatic steatosis, moderate size hiatal hernia, 3 mm nonobstructing right renal stone, and sigmoid diverticulosis. Olu Triana MD Abdomen X-Ray 04/28/17 Signed Impressions: Service Date/Time: Friday, April 28, 2017 19:08 - CONCLUSION: Nasogastric tube with the tip at the level of the distal esophagus. The tube could be advanced at least 10 cm. Johnathon White MD Head CT 04/27/17 1017 Signed Impressions: Service Date/Time: Thursday, April 27, 2017 11:00 - CONCLUSION: 1. No acute intracranial abnormality. 2. Complete opacification left maxillary sinus. Keagan Shipman MD Renal Ultrasound 04/27/17 0000 Signed Impressions: Service Date/Time: Thursday, April 27, 2017 23:50 - CONCLUSION: Negative renal sonogram. Rogerio Gunn MD Objective Remarks GENERAL: 61 year old male lying in bed in NAD SKIN: Warm and dry. No rash HEAD: Normocephalic. EYES: No scleral icterus. Pupils are round 3 mm bilaterally and reactive No injection or drainage. NECK: Supple, trachea midline. No JVD or lymphadenopathy. CARDIOVASCULAR: RRR. S1, S2 no S4 without murmur RESPIRATORY: Breath sounds equal bilaterally. No accessory muscle use. GASTROINTESTINAL: Slightly distended. Hypoactive bowel sounds appreciated throughout. MUSCULOSKELETAL: No significant peripheral edema Neuro:Awake, Date of Insertion: Apr 28, 2017 Line: Central Venous Catheter Side: Right Location: Femoral A/P Assessment and Plan Neuro/Psych: Acute encephalopathy likely secondary to EtOH withdrawal/sepsis/hyperammonia Alcohol dependence Patient does drink 1/5 of vodka daily. Dexmedetomidine drip if needed for agitation. Thiamine, folate and multivitamin daily CT brain 04/27 revealed left maxillary sinusitis otherwise no acute intra- cranial findings Patient does have a history of EtOH withdrawal seizures. Seizure precautions CV: Severe sepsis Lactic acidosis- cleared Monitor HR and BP keep MAP>65mmHg Lactic acid 1.7 04/29 Resp: COPD Ongoing tobaccoism Continue with oxygen keep sat >92% Aspiration precautions. Scheduled albuterol/ipratropium aerosols every 6 hours with albuterol aerosols every 2 hours when necessary dyspnea CT thorax 04/28 revealed left lingula infiltrate. Small bilateral pleural effusions. Spontaneous breathing trials daily as liudmila. Nicotine patch 14 mg daily. GI: Hyperammonia - Elevated AST Hypoalbuminemia - mild protein calorie malnutrition Hiatal hernia Sigmoid diverticulosis Hepatic steatosis KUB abdomen yesterday showed severe ileus, cecum dilated to 10 cm seen by GI for possible decompressive colonoscopy today. Will repeat KUB abdomen. CT abd/pelvis ordered r/o obstruction. Place rectal tube to suction per GI. s/p EGD 04/30: Esophagitis, gastritis, food impaction in distal esophagus removed. Keep NPO Pantoprazole for GI prophylaxis Docusate sodium/senna 1 tablet twice a day for bowel regimen Currently on lactulose 30 cc every 6 hours and Xifaxan 550 mg by mouth twice a day for elevated ammonia. : Right kidney nonobstructing stone 3 mm Renal ultrasound revealed no hydronephrosis Place on D51/2NS@50ml/hr Monitor renal function, I/O's, electrolytes replacement per protocol. Endo: Sliding-scale insulin to maintain euglycemia with Accu-Cheks every 6 hours with low regimen with Novulin R SH: 3.14 04/28 Heme: Macrocytic anemia Thrombocytopenia...improving Likely secondary to EtOH/chronic liver disease possibility of underlying sepsis There are no signs of consumption or hemolysis. Patient was transfused 2 pack platelets and 2 PRBC 04/28. Follow CBC daily. Monitor trends. ID: Severe sepsis - unclear source Continue abx( piperacillin/tazobactam)monitor for signs of infections ( Fever, WBC) Pertinent cultures Blood cultures 2 -04/27 -no growth to date Urine culture - 04/27 -50 - 100,000 mixed gram-positive Sputum 04/28- normal resp andrea Urine pneumococcal and Legionella antigens negative MSK: PT evaluate and treat Access - Right IJ placed 04/29. Prophylaxis - GI - pantoprazole - DVT - SCD/no pharmacological prophylaxis in light of thrombocytopenia Level 3 Don Rod MD May 05, 2017 08:24
[2017-05-05] MEDS ORDERED: DEXT 5%-NACL 0.45% 1000 ML INJ 1,000 ML IV SCH (08:30)
[2017-05-05] MEDS: REMOVE OLD PATCH T-DERMAL SCH (08:42)
[2017-05-05] MEDS: PANTOPRAZOLE SODIUM 40 MG VIAL IV PUSH SCH (08:42)
[2017-05-05] MEDS: NICOTINE 14 MG/24 HR PATCH T-DERMAL SCH (08:42)
--- NOTE | 2017-05-05 08:54 | RADRPT ---
EXAM DATE/TIME: 05/05/2017 08:27 [place] COMPARISON: ABDOMEN KUB ONLY, May 04, 2017, 14:40. INDICATIONS : Distention. MEDICAL HISTORY : Chronic obstructive pulmonary disease. SURGICAL HISTORY : None. ENCOUNTER: Subsequent ACUITY: 1 week PAIN SCORE: Non-responsive. LOCATION: abdomen. FINDINGS: Supine view of the abdomen was performed. There is stable appearance of gaseous distention of the col on with the cecum measuring 10.6 cm in diameter as compared to 10.7 on the exam one day prior. The mo re distal colon appears decompressed. No visualized small bowel air. The osseous structures are unrem arkable. CONCLUSION: Stable distention of the proximal and transverse colon with decompression of the more distal colon. N o visualized small bowel air which may represent fluid filled small bowel. Recommend further evaluati on with CT abdomen and pelvis to exclude an obstructing lesion. Tricia Ny MD on May 05, 2017 at 8:49 Board Certified Radiologist. This report was verified electronically.
[2017-05-05] MEDS: SODIUM CHLORIDE 0.9% FLUSH 10 ML FLUSH IVF SCH (09:00)
--- NOTE | 2017-05-05 09:55 | HHI.GIFU ---
Subjective Remarks Followup for ileus. Patient lying in bed in no distress. He was self extubated last night. Rectal tube in place with brown stool in tubing. (Susy Deutsch) Objective Vitals I&O Vital Signs Date Time Temp Pulse Resp B/P (MAP) Pulse Ox O2 Delivery O2 Flow Rate FiO2 05/05/17 08:16 95 Nasal Cannula 4.00 05/05/17 06:00 105 05/05/17 04:00 101 05/05/17 04:00 98.6 101 17 118/76 (90) 95 05/05/17 02:00 91 05/05/17 00:00 98.6 100 17 126/79 (95) 92 05/05/17 00:00 100 05/04/17 22:00 105 05/04/17 20:00 102 05/04/17 20:00 98.3 102 32 121/73 (89) 94 05/04/17 19:52 95 Nasal Cannula 4.00 05/04/17 18:40 99 Nasal Cannula 4.00 05/04/17 18:00 91 05/04/17 16:46 94 35 05/04/17 16:00 35 05/04/17 16:00 98.2 05/04/17 16:00 100 05/04/17 15:41 93 35 05/04/17 15:31 109 05/04/17 15:00 105 05/04/17 14:30 102 05/04/17 14:00 86 05/04/17 13:49 97 35 05/04/17 13:30 87 05/04/17 13:00 96 05/04/17 12:40 99 05/04/17 12:00 35 05/04/17 12:00 94 05/04/17 12:00 94 27 116/76 (89) 94 05/04/17 12:00 94 27 116/76 (89) 94 05/04/17 11:31 100 35 123/81 (95) 95 05/04/17 11:31 100 05/04/17 11:01 101 37 130/83 (99) 92 05/04/17 11:01 101 05/04/17 10:30 87 05/04/17 10:30 87 17 96/67 (77) 93 05/04/17 10:04 85 05/04/17 10:04 85 14 93/61 (72) 97 05/04/17 10:03 97 35 05/04/17 10:03 35 05/04/17 10:00 84 05/04/17 10:00 84 17 87/55 (66) 97 I/O 05/04/17 05/04/17 05/04/17 05/05/17 05/05/17 05/05/17 07:00 15:00 23:00 07:00 15:00 23:00 Intake Total 1222 ml 420 ml 1145 ml 120 ml Output Total 400 ml 800 ml 250 ml Balance 822 ml -380 ml 895 ml 120 ml Intake Oral 0 ml 0 ml IV Total 1145 ml 120 ml Tube Feeding 1102 ml 170 ml Other 120 ml 250 ml Output Urine Total 400 ml 800 ml 250 ml # Voids 1 # Bowel Movements 0 3 0 Laboratory Laboratory Tests Test 05/04/17 12:14 05/05/17 05:06 White Blood Count 13.7 13.7 Red Blood Count 2.59 2.56 Hemoglobin 9.2 9.0 Hematocrit 28.3 28.0 Mean Corpuscular Volume 109.3 109.3 Mean Corpuscular Hemoglobin 35.7 35.3 Mean Corpuscular Hemoglobin Concent 32.6 32.3 Red Cell Distribution Width 25.7 25.2 Platelet Count 93 111 Mean Platelet Volume 10.7 10.6 Neutrophils (%) (Auto) 85.7 85.2 Lymphocytes (%) (Auto) 3.5 3.9 Monocytes (%) (Auto) 9.0 8.8 Eosinophils (%) (Auto) 1.1 1.2 Basophils (%) (Auto) 0.7 0.9 Neutrophils # (Auto) 11.7 11.7 Lymphocytes # (Auto) 0.5 0.5 Monocytes # (Auto) 1.2 1.2 Eosinophils # (Auto) 0.1 0.2 Basophils # (Auto) 0.1 0.1 CBC Comment AUTO DIFF AUTO DIFF Differential Comment AUTO DIFF CONFIRMED AUTO DIFF CONFIRMED Platelet Estimate LOW LOW Platelet Morphology Comment NORMAL ENLARGED Blood Urea Nitrogen 16 16 Creatinine 0.94 0.71 Random Glucose 120 82 Total Protein 5.3 5.3 Albumin 2.1 1.9 Calcium Level 8.2 8.5 Phosphorus Level 3.2 Magnesium Level 1.5 Alkaline Phosphatase 96 92 Aspartate Amino Transf (AST/SGOT) 53 47 Alanine Aminotransferase (ALT/SGPT) 25 24 Total Bilirubin 1.1 1.2 Sodium Level 142 143 Potassium Level 3.7 3.9 Chloride Level 109 108 Carbon Dioxide Level 26.1 24.9 Anion Gap 7 10 Estimat Glomerular Filtration Rate 82 113 Ammonia 45 Date/Time Source Procedure Growth Status 04/27/17 14:15 Blood Peripheral Aerobic Blood Culture - Final NO GROWTH IN 5 DAYS Complete 04/27/17 14:15 Blood Peripheral Anaerobic Blood Culture - Final NO GROWTH IN 5 DAYS Complete 04/28/17 14:45 Sputum Endotracheal Gram Stain - Final Complete 04/28/17 14:45 Sputum Endotracheal Sputum Culture - Final LIGHT GROWTH NORMAL RESPIRATORY ANDREA Complete 04/28/17 14:48 Urine Catheterized Urine Legionella Antigen - Final PRESUMPTIVE NEGATIVE FOR LEGIONELLA P... Complete 04/28/17 14:48 Urine Catheterized Urine Streptococcus pneumoniae Antigen (M - Final PRESUMPTIVE NEGATIVE FOR STREPTOCOCCU... Complete Imaging Last Impressions Chest X-Ray 05/04/17 0000 Signed Impressions: Service Date/Time: Thursday, May 04, 2017 14:53 - CONCLUSION: Stable chest following extubation. Patricio Kumar MD FACR Abdomen Fluoroscopy 05/01/17 0000 Signed Impressions: Service Date/Time: Monday, May 01, 2017 13:13 - CONCLUSION: Uncomplicated nasogastric tube placement as above. Zain Kumar MD Lower Extremity Ultrasound 04/28/17 0000 Signed Impressions: Service Date/Time: Friday, April 28, 2017 16:47 - CONCLUSION: Negative exam with no evidence of deep venous thrombosis. Johnathon White MD Chest CT 04/28/17 0000 Signed Impressions: Service Date/Time: Friday, April 28, 2017 11:03 - CONCLUSION: 1. Small bilateral pleural effusions with atelectasis in both lower lobes. There is also a focal area of groundglass opacity in the lingula that is nonspecific but could represent an infectious or inflammatory process. 2. Moderate size hiatal hernia with dilated and fluid-filled esophagus suggesting gastroesophageal reflux. The nasogastric tube distal tip is in the distal esophagus and should ideally be advanced into the stomach. Olu Triana MD Abdomen/Pelvis CT 04/28/17 0000 Signed Impressions: Service Date/Time: Friday, April 28, 2017 11:03 - CONCLUSION: 1. Small volume of free fluid within the abdomen and pelvis from uncertain etiology. Otherwise, no acute abnormality is identified within the abdomen or pelvis. 2. Nonacute findings include hepatic steatosis, moderate size hiatal hernia, 3 mm nonobstructing right renal stone, and sigmoid diverticulosis. Olu Triana MD Abdomen X-Ray 04/28/17 0000 Signed Impressions: Service Date/Time: Friday, April 28, 2017 19:08 - CONCLUSION: Nasogastric tube with the tip at the level of the distal esophagus. The tube could be advanced at least 10 cm. Johnathon White MD Head CT 04/27/17 1017 Signed Impressions: Service Date/Time: Thursday, April 27, 2017 11:00 - CONCLUSION: 1. No acute intracranial abnormality. 2. Complete opacification left maxillary sinus. Keagan Shipman MD Renal Ultrasound 04/27/17 0000 Signed Impressions: Service Date/Time: Thursday, April 27, 2017 23:50 - CONCLUSION: Negative renal sonogram. Rogerio Gunn MD Physical Exam HEENT: Normocephalic CHEST: CTA CARDIAC: RRR ABDOMEN: Mild distention. Hypoactive bowel sounds. EXTREMITIES: Mild peripheral edema. SKIN: Warm and dry. SUPERVISOR PRE WAVE: Awake (KuefflerSusy LEVEL VIAL CURVATURE GAUGER) Assessment and Plan Plan ASSESSMENT - Ileus, had no BM in 5 days with worsening distention, was on aggressive bowel regimen with still no BM. KUB 05/04/17--There is moderate gaseous distension of colon. The cecum is dilated to 10 cm. Minimal small bowel gas is evident. Solid stool is seen in the rectum. He is s/p SSE x 2. While patient was getting enemas to prep him for decompression colonoscopy on 05/04, he had significant amount of stool come out, with decreased abdominal distention. KUB 05/05/17--Stable distention of the proximal and transverse colon with decompression of the more distal colon. No visualized small bowel air which may represent fluid filled small bowel. Recommend further evaluation with CT abdomen and pelvis to exclude an obstructing lesion. Rectal tubing with brown liquid stool. Mild distention of abdomen. - Anemia, macrocytic. 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 Pathology reactive gastropathy. S/P 2 units RBC, 2 units Platelets. Vitamin B12 1298. HH stable. PPI - Martinez's Esophagus, Esophagitis, Gastritis. Pathology reactive gastropathy. PPI - Foreign body in distal esophagus, s/p removal. - Elevated ammonia, acute encephalopathy. Ammonia 45 (05/04). Lactulose, Xifaxan. - Elevated bilirubin. CT as above. History of ETOH abuse, drinks 1/5 of vodka daily. Hypoalbuminemia, with albumin 1.9 (05/05). Mild coagulopathy. Suspect liver cirrhosis, likely secondary to alcohol, fatty liver disease. - Thrombocytopenia. S/P 2 platelet transfusion. Plt 111 (05/05) - Sepsis, unclear source. Urine negative for legionella, streptococcus, sputum cx with light growth normal respiratory andrea. CT reveals possible pneumonia. Vanco, Azithromycin - Respiratory failure, COPD. Patient self extubated last night PLAN - NPO - Hold TF - Await Abdominal CT today - Consider decompression colonoscopy - Obtain consents - Cont. bowel regimen - Cont. Lactulose - Cont. Xifaxan - Cont. PPI - Cont. Reglan - Cont Miralax - Monitor labs - Supportive care - Further recommendations to follow based on the results of above Patient seen and examined by Dr. Moses and myself and this note is written on his behalf. (Susy Deutsch) Plan Patient was seen and examined, agree with above note, CT scan show continuous distention of the ascending colon and cecum: With transitional point, we will plan on doing colonoscopy tomorrow (Jassi Moses MD) Susy Deutsch May 05, 2017 09:55 Jassi Moses MD May 05, 2017 20:28
[2017-05-05] MEDS: POLYETHYLENE GLYCOL 17 GM PKG PO SCH (10:35)
[2017-05-05] MEDS: GABAPENTIN 300 MG CAP PO SCH ×3 (10:35→17:08)
[2017-05-05] MEDS: DOCUSATE SODIUM 50 MG/SENNA 8.6 MG TAB PO SCH ×2 (10:35→20:56)
[2017-05-05] MEDS: THIAMINE HCL 100 MG TAB PO SCH (10:35)
[2017-05-05] MEDS: FOLIC ACID 1 MG TAB PO SCH (10:35)
[2017-05-05] MEDS: MULTIVITAMIN TAB PO SCH (10:36)
[2017-05-05] MEDS: RIFAXIMIN 550 MG TAB PO SCH ×2 (10:36→20:56)
--- NOTE | 2017-05-05 10:55 | RADRPT ---
EXAM DATE/TIME: 05/05/2017 10:15 [facility] COMPARISON: ABDOMEN SINGLE VIEW, April 28, 2017, 19:08. INDICATIONS : Attempted NG tube placement MEDICAL HISTORY : Chronic obstructive pulmonary disease. SURGICAL HISTORY : None. ENCOUNTER: Initial ACUITY: 1 day PAIN SCORE: Non-responsive. LOCATION: Bilateral upper quadrant FINDINGS: Limited imaging of the abdomen demonstrates what appears to be an NG tube the tip at the level of the gastroesophageal junction. There is gaseous distention of large bowel. Left basilar atelectasis. Mul tiple overlying cardiac leads. CONCLUSION: Partially imaged structure in the midline consistent with an NG tube which is positioned above the le georges of the gastroesophageal junction. The medical team is aware of these findings. Tricia Ny MD on May 05, 2017 at 10:52 Board Certified Radiologist. This report was verified electronically.
[2017-05-05] MEDS ORDERED: DIATRIZOATE MEGLUM/DIATRIZOATE SOD 9 ML CUP PO ONE (11:30)
[2017-05-05] MEDS: DEXMEDETOMIDINE INJ 1,000 MCG in SODIUM CHLOR 0.9% 250 ML INJ 240 ML IV PRN (12:27)
[2017-05-05] MEDS ORDERED: BUMETANIDE INJ 1 MG/4 ML VIAL IV PUSH ONE (13:00)
[2017-05-05] MEDS ORDERED: methylPREDNISolone SOD SUCC 40 MG/1 ML VIAL IV PUSH SCH (13:00)
[2017-05-05 13:02] LABS: BLOOD GAS CARBOXYHEMOGLOBIN 1.5 % (0-4); BLOOD GAS HCO3 25 mmol/L (22-26); BLOOD GAS METHEMOGLOBIN 0.9 % (0-2); BLOOD GAS O2 HGB SATURATION 92 % (90-100); BLOOD GAS OXYGEN CONTENT 11.6 Vol % (12.0-20.0); BLOOD GAS PCO2 46 mmHg (38-42); BLOOD GAS PO2 77 mmHg (61-120); BLOOD GAS TOTAL HGB 8.9 G/DL (12.0-16.0); TEMP CORR TO 98.6
[2017-05-05 13:03] LABS: CRITICAL VALUE NO; DRAW SITE RT RADIAL; LITER FLOW 4 L/M; NUMBER OF ARTERIAL PUNCTURES 1; OXYGEN DEVICE NASAL CANNULA; STAT YES; ULNAR PULSE PRESENT
[2017-05-05] MEDS ORDERED: IOHEXOL 350 MG/ML 10 ML VIAL (for RAD DIAG) IVCONTRAST ONE (18:49)
--- NOTE | 2017-05-05 19:13 | RADRPT ---
EXAM DATE/TIME: 05/05/2017 18:38 [facility] COMPARISON: CT ABDOMEN & PELVIS W CONTRAST, April 28, 2017, 11:03. INDICATIONS : Abdominal distention, evaluate for ileus. IV CONTRAST: 95 cc Omnipaque 350 (iohexol) IV ORAL CONTRAST: Prescribed oral contrast ingested. RADIATION DOSE: 16.65 CTDIvol (mGy) MEDICAL HISTORY : Seizures. Chronic obstructive pulmonary disease. SURGICAL HISTORY : None. ENCOUNTER: Subsequent ACUITY: 1 week PAIN SCALE: 0/10 LOCATION: All quadrants. TECHNIQUE: Volumetric scanning of the abdomen and pelvis was performed. Using automated exposure control and ad justment of the mA and/or kV according to patient size, radiation dose was kept as low as reasonably achievable to obtain optimal diagnostic quality images. DICOM format image data is available electro nically for review and comparison. FINDINGS: There is image degradation due to patient motion, patient's arms, tubing, and metallic connectors all in the aexne-dy-bqet the scan. When compared to 04/28/17, there is a significant distention of the r ight colon and transverse colon, measuring up to 10.6 cm in diameter. There is an abrupt change in t he normal diameter of the colon at the level of the splenic flexure with a transition zone seen on im age #20. On the prior CT scan, this segment of colon was not distended, but no definite mass was see n. A rectal tube is in place. Oral contrast passes through to the cecum. Loops of small bowel tracey ure up to 3 cm in size. There is a mild amount of free fluid in the dependent pelvis, similar in siz e to prior examination. Right lower lung pleural effusion and compressive atelectasis a similar in appearance to prior. Ther e has been an increase in the amount of fine loss and consolidation in the left lower lobe with stabl e size left pleural effusion. Gastric tube tip extends to the GE junction, but does not cross into t he stomach. The stomach is not distended. Nonobstructing stone in the upper pole of the left kidney similar to prior. No evidence of biliary d uctal dilatation. The spleen is normal size. The abdominal aorta is normal in dimension. No gross pancreatic abnormality seen. Urinary bladder margins are smooth. Small bilateral inguinal hernias c ontaining fat. Anasarca of the lateral lower abdominal and pelvic subcutaneous tissues. CONCLUSION: 1. Interval development of gaseous distention of the right and transverse colon with abrupt change in luminal dimension at the splenic flexure. There is a rectal tube in place and cannot differentiate between a focal obstruction/stricture versus decompression from the rectal tube. 2. Increasing consolidation/atelectasis in the left lower lobe and persistent right lower lobe consol idation and bilateral pleural effusions. 3. Stable mild free fluid in the pelvis. Rogerio Gunn MD on May 05, 2017 at 19:02 Board Certified Radiologist. This report was verified electronically.
[2017-05-05] MEDS ORDERED: MAGNESIUM CITRATE SOLN 300 ML BTL PO ONE (20:30)
[2017-05-06] VITALS (18 sets, daily range): BP systolic 86–121; BP diastolic 54–75; PULSE 60–143; RESP 17–41; TEMP 97.4–98.8; O2SAT 91–100
[2017-05-06] MEDS: LACTULOSE SYRUP 20 GM/30 ML CUP PO SCH ×4 (04:15→22:37)
[2017-05-06] MEDS: PIPERACIL-TAZO 4.5 GM PREMIX 100 ML IV SCH ×2 (04:16→04:19)
[2017-05-06] MEDS: ARTIFICIAL TEARS OPTH SOLN 15 ML BTL EACH EYE SCH ×3 (04:18→22:00)
[2017-05-06] MEDS: RESP: ALBUTEROL 2.5 MG/IPRATROPIUM 0.5 MG NEB (SCH) INH ×5 (04:39→20:42)
[2017-05-06] MEDS: DEXMEDETOMIDINE INJ 1,000 MCG in SODIUM CHLOR 0.9% 250 ML INJ 240 ML IV PRN (05:00)
[2017-05-06] MEDS: CHLORHEXIDINE 0.12% (ORAL KIT) 15 ML CUP MT SCH ×2 (08:00→20:00)
[2017-05-06] MEDS: GABAPENTIN 300 MG CAP PO SCH ×3 (08:17→20:00)
[2017-05-06] MEDS: THIAMINE HCL 100 MG TAB PO SCH (08:17)
[2017-05-06] MEDS: FOLIC ACID 1 MG TAB PO SCH (08:17)
[2017-05-06] MEDS: PANTOPRAZOLE SODIUM 40 MG VIAL IV PUSH SCH (08:17)
[2017-05-06] MEDS: RIFAXIMIN 550 MG TAB PO SCH ×2 (08:17→22:36)
[2017-05-06] MEDS: MULTIVITAMIN TAB PO SCH (08:17)
[2017-05-06] MEDS: NICOTINE 14 MG/24 HR PATCH T-DERMAL SCH (08:18)
[2017-05-06] MEDS: REMOVE OLD PATCH T-DERMAL SCH (08:18)
[2017-05-06] MEDS ORDERED: BUMETANIDE INJ 1 MG/4 ML VIAL IV PUSH ONE (08:30)
--- NOTE | 2017-05-06 08:33 | HHI.CCPN ---
Subjective Remarks/Hospital Course 61yM with h/o prior hepatic encephalopathy, etoh abuse, tobacco abuse, now admitted with weakness, fever, chills, worsening hypotension. called by hospitalist service overnight for clinical decline despite ivf resuscitation. Patient does complain of flank pain, but denies chest pain, abdominal pain. u/a +. started earlier on vanc/zosyn. has not voided. becoming worseningly agitated. unable to provide any additional information due to altered mental status. 04/28: Chart reviewed. Patient still quite agitated stating "I have to pee" patient has a Young catheter. Complaining of flank pain. Noted renal ultrasound negative. Currently on norepinephrine at 12 mg per minute. 04/29: Resting in bed in no acute distress. Currently on norepinephrine at 7 per minute for vasopressor support. Transfuse 2 units PRBC and 2 pack platelets overnight. Dilutional. Absolutely no signs of active bleeding. 04/30 Patient is sedated with Fentanyl and intubated. On Levophed 5 mics. Afebrile. For EGD today. 05/01 No events overnight. Sedated and intubated. On Levophed 4 mics. s/p EGD yesterday with shoed esophagitis, gastritis, food impaction in distal esophagus removed. Subjective 05/02: Afebrile. Off all vasopressors. NG tube advanced by IR yesterday. Feeding to be initiated today. Currently on fentanyl drip 05/03: Remains intubated sedated and not following commands remains on fentanyl infusion. Attempt CPAP trial if patient wakeful enough. Urine output minimal only 300 mL in 24 hours. Will give albumin and Bumex 05/04 Patient is sedated with Fentanyl and intubated. Afebrile. 05/05 Patient was self extubated last night. For possible decompressive colonoscopy today. Afebrile. 05/06 Patient is on 3L oxygen for decompressive colonoscopy today. On Precedex drip for agitation. CT abdomen/pelvis last night showed development of gaseous distention of the right and transverse colon with abrupt change in luminal dimension at the splenic flexure. There is a rectal tube in place and cannot differentiate between a focal obstruction/stricture versus decompression from the rectal tube. Objective Vital Signs Date Time Temp Pulse Resp B/P (MAP) Pulse Ox O2 Delivery O2 Flow Rate FiO2 05/06/17 06:00 67 05/06/17 04:00 97.8 17 93/63 (73) 99 05/05/17 20:13 Nasal Cannula 3.00 05/04/17 16:46 35 Intake and Output 05/06/17 05/06/17 05/07/17 08:00 16:00 00:00 Intake Total 544 ml Output Total 950 ml Balance -406 ml Result Diagram: 05/05/17 0506 05/05/17 0506 Other Results Laboratory Tests Test 05/05/17 12:55 Blood Gas Puncture Site RT RADIAL Blood Gas Patient Temperature 98.6 Blood Gas HCO3 25 mmol/L Blood Gas Base Excess 0.0 mmol/L Blood Gas Oxygen Saturation 92 % Arterial Blood pH 7.35 Arterial Blood Partial Pressure CO2 46 mmHg Arterial Blood Partial Pressure O2 77 mmHg Arterial Blood Oxygen Content 11.6 Vol % Arterial Blood Carboxyhemoglobin 1.5 % Arterial Blood Methemoglobin 0.9 % Blood Gas Hemoglobin 8.9 G/DL Oxygen Delivery Device NASAL CANNULA Blood Gas Liter Flow 4 L/M Imaging Last Impressions Abdomen X-Ray 05/05/17 0000 Signed Impressions: Service Date/Time: Friday, May 05, 2017 10:15 - CONCLUSION: Partially imaged structure in the midline consistent with an NG tube which is positioned above the level of the gastroesophageal junction. The medical team is aware of these findings. Tricia Ny MD Chest X-Ray 05/04/17 0000 Signed Impressions: Service Date/Time: Thursday, May 04, 2017 14:53 - CONCLUSION: Stable chest following extubation. Patricio Kumar MD FACR Abdomen Fluoroscopy 05/01/17 0000 Signed Impressions: Service Date/Time: Monday, May 01, 2017 13:13 - CONCLUSION: Uncomplicated nasogastric tube placement as above. Zain Kumar MD Lower Extremity Ultrasound 04/28/17 0000 Signed Impressions: Service Date/Time: Friday, April 28, 2017 16:47 - CONCLUSION: Negative exam with no evidence of deep venous thrombosis. Johnathon White MD Chest CT 04/28/17 0000 Signed Impressions: Service Date/Time: Friday, April 28, 2017 11:03 - CONCLUSION: 1. Small bilateral pleural effusions with atelectasis in both lower lobes. There is also a focal area of groundglass opacity in the lingula that is nonspecific but could represent an infectious or inflammatory process. 2. Moderate size hiatal hernia with dilated and fluid-filled esophagus suggesting gastroesophageal reflux. The nasogastric tube distal tip is in the distal esophagus and should ideally be advanced into the stomach. Olu Triana MD Abdomen/Pelvis CT 04/28/17 0000 Signed Impressions: Service Date/Time: Friday, April 28, 2017 11:03 - CONCLUSION: 1. Small volume of free fluid within the abdomen and pelvis from uncertain etiology. Otherwise, no acute abnormality is identified within the abdomen or pelvis. 2. Nonacute findings include hepatic steatosis, moderate size hiatal hernia, 3 mm nonobstructing right renal stone, and sigmoid diverticulosis. Olu Triana MD Head CT 04/27/17 1017 Signed Impressions: Service Date/Time: Thursday, April 27, 2017 11:00 - CONCLUSION: 1. No acute intracranial abnormality. 2. Complete opacification left maxillary sinus. Keagan Shipman MD Renal Ultrasound 04/27/17 0000 Signed Impressions: Service Date/Time: Thursday, April 27, 2017 23:50 - CONCLUSION: Negative renal sonogram. Rogerio Gunn MD Objective Remarks GENERAL: 61 year old male lying in bed in NAD SKIN: Warm and dry. No rash HEAD: Normocephalic. EYES: No scleral icterus. Pupils are round 3 mm bilaterally and reactive No injection or drainage. NECK: Supple, trachea midline. No JVD or lymphadenopathy. CARDIOVASCULAR: RRR. S1, S2 no S4 without murmur RESPIRATORY: Breath sounds equal bilaterally. No accessory muscle use. GASTROINTESTINAL: Slightly distended. Hypoactive bowel sounds appreciated throughout. MUSCULOSKELETAL: No significant peripheral edema Neuro:Awake, Date of Insertion: Apr 28, 2017 Line: Central Venous Catheter Side: Right Location: Femoral A/P Assessment and Plan Neuro/Psych: Acute encephalopathy likely secondary to EtOH withdrawal/sepsis/hyperammonia Alcohol dependence Patient does drink 1/5 of vodka daily. Dexmedetomidine drip for agitation. Thiamine, folate and multivitamin daily CT brain 04/27 revealed left maxillary sinusitis otherwise no acute intra- cranial findings Patient does have a history of EtOH withdrawal seizures. Seizure precautions CV: Severe sepsis Lactic acidosis- cleared Monitor HR and BP keep MAP>65mmHg Lactic acid 1.7 04/29 Resp: COPD Ongoing tobaccoism Continue with oxygen keep sat >92% Aspiration precautions. Scheduled albuterol/ipratropium aerosols every 6 hours with albuterol aerosols every 2 hours when necessary dyspnea Check CXR. Nicotine patch 14 mg daily. GI: Hyperammonia - Elevated AST Hypoalbuminemia - mild protein calorie malnutrition Hiatal hernia Sigmoid diverticulosis Hepatic steatosis 05/05 CT abdomen/pelvis last night showed development of gaseous distention of the right and transverse colon with abrupt change in luminal dimension at the splenic flexure. There is a rectal tube in place and cannot differentiate between a focal obstruction/stricture versus decompression from the rectal tube. For decompressive colonoscopy today. Recta KUB abdomen 05/04 showed severe ileus, cecum dilated to 10 cm seen by GI for possible decompressive colonoscopy today. Will repeat KUB abdomen. CT abd/pelvis ordered r/o obstruction. Rectal tube to suction per GI. s/p EGD 04/30: Esophagitis, gastritis, food impaction in distal esophagus removed. Keep NPO Pantoprazole for GI prophylaxis Docusate sodium/senna 1 tablet twice a day for bowel regimen Currently on lactulose 30 cc every 6 hours and Xifaxan 550 mg by mouth twice a day for elevated ammonia. : Right kidney nonobstructing stone 3 mm Renal ultrasound revealed no hydronephrosis Diurese with Bumex 1mg x1, off IVF. Monitor renal function, I/O's, electrolytes replacement per protocol. Endo: Sliding-scale insulin to maintain euglycemia with Accu-Cheks every 6 hours with low regimen with Novulin R TSH: 3.14 04/28 Heme: Macrocytic anemia Thrombocytopenia...improving Likely secondary to EtOH/chronic liver disease possibility of underlying sepsis There are no signs of consumption or hemolysis. Patient was transfused 2 pack platelets and 2 PRBC 04/28. Follow CBC daily. Monitor trends. ID: [id number]( has been on Zosyn since 04/27))monitor for signs of infections ( Fever, WBC) Afebrile, Pertinent cultures Blood cultures 2 -04/27 -no growth to date Urine culture - 04/27 -50 - 100,000 mixed gram-positive Sputum 04/28- normal resp andrea Urine pneumococcal and Legionella antigens negative MSK: PT evaluate and treat Access - Right IJ placed 04/29. Prophylaxis - GI - pantoprazole - DVT - SCD/no pharmacological prophylaxis in light of thrombocytopenia Follow up on labs today Level 3 Viola,Alaa MD May 06, 2017 08:32
[2017-05-06] MEDS ORDERED: MAGNESIUM CITRATE SOLN 300 ML BTL PO ONE (08:45)
[2017-05-06] MEDS: POLYETHYLENE GLYCOL 17 GM PKG PO SCH (08:46)
[2017-05-06] MEDS: DOCUSATE SODIUM 50 MG/SENNA 8.6 MG TAB PO SCH ×2 (08:47→22:36)
[2017-05-06] MEDS: SODIUM CHLORIDE 0.9% FLUSH 10 ML FLUSH IVF SCH (08:52)
--- NOTE | 2017-05-06 09:30 | RADRPT ---
EXAM DATE/TIME: 05/06/2017 08:32 [facility] COMPARISON: CHEST SINGLE AP, May 04, 2017, 14:53. INDICATIONS : Short of breath. MEDICAL HISTORY : Chronic obstructive pulmonary disease. SURGICAL HISTORY : None. ENCOUNTER: Subsequent ACUITY: 1 week PAIN SCORE: Non-responsive. LOCATION: Bilateral chest FINDINGS: AP semiupright portable view of the chest demonstrate interval removal of an endotracheal tube. NG tu be in with the proximal port above the level of the gastroesophageal junction. Stable hypoinflation w ith enlargement of the cardiac silhouette. There is right upper lobe airspace consolidation and hazy opacities identified within the left upper lobe consistent with airspace consolidation. CONCLUSION: Interval extubation. Overall lung exam appears stable concerning for multifocal pneumonia or aspirati on. Tricia Ny MD on May 06, 2017 at 9:27 Board Certified Radiologist. This report was verified electronically.
[2017-05-06 09:31] LABS: BLOOD, URINE MOD (NEG); COMMENT (UR) CATH-CULTURE IND; CULTURE IF INDICATED CATH CULTURE IND; GLUCOSE,URINE NEG (NEG); HYALINE CAST, URINE 14 /lpf (RARE); KETONE, URINE TRACE mg/dL (NEG); MUCUS URINE FEW /lpf (OCC); NITRITE,URINE NEG (NEG); PH, URINE 5.5 (5.0-8.5); SQUAMOUS EPITHELIAL CELL URINE 1 /hpf (0-5); URINE COLOR YELLOW (YELLW/STRAW)
[2017-05-06 10:56] LABS: BASOPHIL # 0.1 TH/MM3 (0-0.2); EOSINOPHIL # 0.2 TH/MM3 (0-0.4); EOSINOPHIL % 1.7 % (0.0-4.0); HEMATOCRIT 28.1 % (39.0-51.0); HEMO FLAGS DIFF FINAL; LYMPH % 3.6 % (9.0-44.0); LYMPHOCYTE # 0.4 TH/MM3 (1.0-4.8); MEAN CELL VOLUME 109.8 FL (80.0-100.0); MEAN CORPUSCULAR HEMOGLOBIN 36.8 PG (27.0-34.0); MEAN CORPUSCULAR HGB CONC 33.5 % (32.0-36.0); MONO % 9.7 % (0.0-8.0); PLATELET COUNT 129 TH/MM3 (150-450); RED BLOOD COUNT 2.56 MIL/MM3 (4.50-5.90); RED CELL DISTRIBUTION WIDTH 24.7 % (11.6-17.2); WHITE BLOOD COUNT 10.8 TH/MM3 (4.0-11.0)
[2017-05-06 11:25] LABS: BICARBONATE 25.3 MEQ/L (21.0-32.0); MAGNESIUM 1.8 MG/DL (1.5-2.5)
[2017-05-06] MEDS ORDERED: PHENYLEPH/NS 1000 MCG/10 ML SYR IV ONE (12:00)
[2017-05-06] MEDS ORDERED: ePHEDrine/NS 25 MG/5 ML SYR IV ONE (12:00)
[2017-05-06] MEDS ORDERED: LIDOCAINE HCL 1% PF 5 ML AMPULE OTHER ONE (12:00)
[2017-05-06] MEDS ORDERED: PROPOFOL 200 MG/20 ML AMP IV ONE (12:00)
--- NOTE | 2017-05-06 18:46 | PD.PROCEDR ---
GI Procedure PROCEDURE PERFORMED Colonoscopy with decompression tube placement INDICATION FOR PROCEDURE Distended cecum and transverse colon on CT scan PROCEDURE: The procedure, risks and benefits were discussed with Mr. Pittman and informed consent was obtained. Anesthesia sedated him with Diprivan. He was placed in the left lateral decubitus position. Colonoscopy: The Pentax videoscope was introduced through the rectum and advanced to ascending colon. Retroflexion was performed in the rectum. Colonic prep was poor significant amount of stool, decompression tube was placed to the ascending colon FINDINGS: Stool throughout the colon, I did not see any masses that visualization was compromised with stool Decompression colon tube was placed ESTIMATED BLOOD LOSS: None SPECIMENS REMOVED: None COMPLICATIONS: None IMPRESSION: Decompression tube was placed PLAN: Decompression tube low intermittent wall suction KUB in the morning Jassi Moses MD May 06, 2017 18:46
--- NOTE | 2017-05-06 18:49 | HHI.GIFU ---
Subjective Remarks Patient laying in bed, seems to be comfortable, not able to have colorization, mild shortness of breath Objective Vitals I&O Vital Signs Date Time Temp Pulse Resp B/P (MAP) Pulse Ox O2 Delivery O2 Flow Rate FiO2 05/06/17 16:00 93 05/06/17 16:00 97.6 93 41 120/56 (77) 91 05/06/17 15:00 79 27 121/63 (82) 100 05/06/17 14:00 75 28 119/70 (86) 98 05/06/17 14:00 73 05/06/17 13:00 74 25 100/63 (75) 100 05/06/17 12:00 97.6 61 18 96/65 (75) 100 05/06/17 12:00 61 05/06/17 11:00 62 21 112/75 (87) 100 05/06/17 10:00 60 05/06/17 10:00 63 33 86/54 (65) 100 05/06/17 09:00 98.1 65 29 92/58 (69) 100 05/06/17 08:30 100 Nasal Cannula 2.00 05/06/17 08:00 63 05/06/17 08:00 63 19 97/66 (76) 100 05/06/17 07:00 67 26 110/59 (76) 97 05/06/17 06:00 67 05/06/17 04:00 97.8 62 17 93/63 (73) 99 05/06/17 04:00 62 05/06/17 02:00 66 05/06/17 00:00 97.4 74 20 95/64 (74) 96 05/06/17 00:00 74 05/05/17 22:00 84 05/05/17 20:13 99 Nasal Cannula 3.00 05/05/17 20:00 81 05/05/17 20:00 98.0 81 20 97/63 (74) 98 I/O 05/05/17 05/05/17 05/05/17 05/06/17 05/06/17 05/06/17 07:00 15:00 23:00 07:00 15:00 23:00 Intake Total 1145 ml 512 ml 437 ml 544 ml 225 ml Output Total 250 ml 850 ml 950 ml Balance 895 ml 512 ml -413 ml -406 ml 225 ml Intake Oral 0 ml 0 ml IV Total 1145 ml 512 ml 137 ml 244 ml 225 ml Other 300 ml 300 ml Output Urine Total 250 ml 500 ml 800 ml Stool Total 350 ml 150 ml # Voids 1 3 # Bowel Movements 0 5 3 Laboratory Laboratory Tests Test 05/06/17 07:50 05/06/17 10:34 Urine Color YELLOW Urine Turbidity CLEAR Urine pH 5.5 Urine Specific [place] GREATER THAN 1.050 Urine Protein TRACE Urine Glucose (UA) NEG Urine Ketones TRACE Urine Occult Blood MOD Urine Nitrite NEG Urine Bilirubin NEG Urine Urobilinogen LESS THAN 2.0 Urine Leukocyte Esterase SMALL Urine RBC 6 Urine WBC 43 Urine Squamous Epithelial Cells 1 Urine Hyaline Casts 14 Urine Mucus FEW Microscopic Urinalysis Comment CATH-CULTURE IND White Blood Count 10.8 Red Blood Count 2.56 Hemoglobin 9.4 Hematocrit 28.1 Mean Corpuscular Volume 109.8 Mean Corpuscular Hemoglobin 36.8 Mean Corpuscular Hemoglobin Concent 33.5 Red Cell Distribution Width 24.7 Platelet Count 129 Mean Platelet Volume 11.0 Neutrophils (%) (Auto) 84.0 Lymphocytes (%) (Auto) 3.6 Monocytes (%) (Auto) 9.7 Eosinophils (%) (Auto) 1.7 Basophils (%) (Auto) 1.0 Neutrophils # (Auto) 9.0 Lymphocytes # (Auto) 0.4 Monocytes # (Auto) 1.0 Eosinophils # (Auto) 0.2 Basophils # (Auto) 0.1 CBC Comment DIFF FINAL Differential Comment Blood Urea Nitrogen 16 Creatinine 0.57 Random Glucose 112 Calcium Level 8.3 Phosphorus Level 4.6 Magnesium Level 1.8 Sodium Level 142 Potassium Level 4.0 Chloride Level 109 Carbon Dioxide Level 25.3 Anion Gap 8 Estimat Glomerular Filtration Rate 146 B-Type Natriuretic Peptide 609 Date/Time Source Procedure Growth Status 04/27/17 14:15 Blood Peripheral Aerobic Blood Culture - Final NO GROWTH IN 5 DAYS Complete 04/27/17 14:15 Blood Peripheral Anaerobic Blood Culture - Final NO GROWTH IN 5 DAYS Complete 04/28/17 14:45 Sputum Endotracheal Gram Stain - Final Complete 04/28/17 14:45 Sputum Endotracheal Sputum Culture - Final LIGHT GROWTH NORMAL RESPIRATORY JOSE Complete 05/06/17 07:50 Urine Catheterized Urine Urine Culture Pending Received Physical Exam HEENT: Normocephalic CHEST: CTA CARDIAC: RRR ABDOMEN: Mild distention. Hypoactive bowel sounds. EXTREMITIES: Mild peripheral edema. SKIN: Warm and dry. 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
[2017-05-06] MEDS ORDERED: DO NOT ADM ANY ANTICOAGULANT DRUGS PRN (18:50)
[2017-05-06] MEDS ORDERED: *RESP: ALBUTEROL 2.5 MG/3 ML NEB (PRN) PERIprocedural Use ONLY NEB ONE (18:52)
[2017-05-07] VITALS (26 sets, daily range): BP systolic 120–159; BP diastolic 67–103; PULSE 96–128; RESP 28–36; TEMP 97.6–98.3; O2SAT 88–100
[2017-05-07] MEDS: RESP: ALBUTEROL 2.5 MG/IPRATROPIUM 0.5 MG NEB (SCH) INH ×6 (00:06→20:59)
[2017-05-07] MEDS: LACTULOSE SYRUP 20 GM/30 ML CUP PO SCH ×4 (04:01→20:00)
[2017-05-07] MEDS: ARTIFICIAL TEARS OPTH SOLN 15 ML BTL EACH EYE SCH ×3 (04:02→22:00)
--- NOTE | 2017-05-07 06:09 | RADRPT ---
EXAM DATE/TIME: 05/07/2017 04:24 [place] COMPARISON: ABDOMEN SING[place], May 05, 2017, 10:15. INDICATIONS : Abdominal pain. MEDICAL HISTORY : Chronic obstructive pulmonary disease. SURGICAL HISTORY : None. ENCOUNTER: Subsequent ACUITY: 1 week PAIN SCORE: Non-responsive. LOCATION: Bilateral Abdomen FINDINGS: Decreased caliber large bowel. Transverse colon up to 10 cm currently but the rest of the colon is de compressed. A small caliber colon to this present, tip in the mid ascending. No small bowel or gastri c distention. CONCLUSION: Colonic tube placed, tip in the right side. Decreased colonic distention. Olu Blackwood MD on May 07, 2017 at 6:06 Board Certified Radiologist. This report was verified electronically.
[2017-05-07 06:49] LABS: BASOPHIL # 0.2 TH/MM3 (0-0.2); BASOPHIL % 2.1 % (0.0-2.0); EOSINOPHIL # 0.1 TH/MM3 (0-0.4); EOSINOPHIL % 1.1 % (0.0-4.0); HEMATOCRIT 27.3 % (39.0-51.0); HEMO FLAGS DIFF FINAL; LYMPHOCYTE # 0.4 TH/MM3 (1.0-4.8); MEAN CELL VOLUME 109.3 FL (80.0-100.0); MEAN CORPUSCULAR HEMOGLOBIN 35.3 PG (27.0-34.0); MEAN CORPUSCULAR HGB CONC 32.3 % (32.0-36.0); MONO % 9.7 % (0.0-8.0); NEUT % 83.1 % (16.0-70.0); PLATELET COUNT 187 TH/MM3 (150-450); RED BLOOD COUNT 2.49 MIL/MM3 (4.50-5.90); RED CELL DISTRIBUTION WIDTH 24.4 % (11.6-17.2); WHITE BLOOD COUNT 10.8 TH/MM3 (4.0-11.0)
[2017-05-07 07:17] LABS: BICARBONATE 27.9 MEQ/L (21.0-32.0); POTASSIUM 3.7 MEQ/L (3.5-5.1)
[2017-05-07] MEDS: CHLORHEXIDINE 0.12% (ORAL KIT) 15 ML CUP MT SCH ×2 (08:00→20:00)
[2017-05-07] MEDS: REMOVE OLD PATCH T-DERMAL SCH (09:00)
[2017-05-07] MEDS: DOCUSATE SODIUM 50 MG/SENNA 8.6 MG TAB PO SCH ×2 (09:19→20:19)
[2017-05-07] MEDS: PANTOPRAZOLE SODIUM 40 MG VIAL IV PUSH SCH (09:19)
[2017-05-07] MEDS: BUMETANIDE INJ 1 MG/4 ML VIAL IV PUSH SCH (09:19)
[2017-05-07] MEDS: NICOTINE 14 MG/24 HR PATCH T-DERMAL SCH (09:19)
[2017-05-07] MEDS: RIFAXIMIN 550 MG TAB PO SCH ×2 (09:19→20:19)
[2017-05-07] MEDS: MULTIVITAMIN TAB PO SCH (09:20)
[2017-05-07] MEDS: POLYETHYLENE GLYCOL 17 GM PKG PO SCH (09:20)
[2017-05-07] MEDS: SODIUM CHLORIDE 0.9% FLUSH 10 ML FLUSH IVF SCH (09:20)
[2017-05-07] MEDS: GABAPENTIN 300 MG CAP PO SCH ×3 (09:20→18:02)
[2017-05-07] MEDS: FOLIC ACID 1 MG TAB PO SCH (09:20)
[2017-05-07] MEDS: THIAMINE HCL 100 MG TAB PO SCH (09:20)
--- NOTE | 2017-05-07 09:33 | HHI.CCPN ---
Subjective Remarks/Hospital Course 61yM with h/o prior hepatic encephalopathy, etoh abuse, tobacco abuse, now admitted with weakness, fever, chills, worsening hypotension. called by hospitalist service overnight for clinical decline despite ivf resuscitation. Patient does complain of flank pain, but denies chest pain, abdominal pain. u/a +. started earlier on vanc/zosyn. has not voided. becoming worseningly agitated. unable to provide any additional information due to altered mental status. 04/28: Chart reviewed. Patient still quite agitated stating "I have to pee" patient has a Young catheter. Complaining of flank pain. Noted renal ultrasound negative. Currently on norepinephrine at 12 mg per minute. 04/29: Resting in bed in no acute distress. Currently on norepinephrine at 7 per minute for vasopressor support. Transfuse 2 units PRBC and 2 pack platelets overnight. Dilutional. Absolutely no signs of active bleeding. 04/30 Patient is sedated with Fentanyl and intubated. On Levophed 5 mics. Afebrile. For EGD today. 05/01 No events overnight. Sedated and intubated. On Levophed 4 mics. s/p EGD yesterday with shoed esophagitis, gastritis, food impaction in distal esophagus removed. Subjective 05/02: Afebrile. Off all vasopressors. NG tube advanced by IR yesterday. Feeding to be initiated today. Currently on fentanyl drip 05/03: Remains intubated sedated and not following commands remains on fentanyl infusion. Attempt CPAP trial if patient wakeful enough. Urine output minimal only 300 mL in 24 hours. Will give albumin and Bumex 05/04 Patient is sedated with Fentanyl and intubated. Afebrile. 05/05 Patient was self extubated last night. For possible decompressive colonoscopy today. Afebrile. 05/06 Patient is on 3L oxygen for decompressive colonoscopy today. On Precedex drip for agitation. CT abdomen/pelvis last night showed development of gaseous distention of the right and transverse colon with abrupt change in luminal dimension at the splenic flexure. There is a rectal tube in place and cannot differentiate between a focal obstruction/stricture versus decompression from the rectal tube. 05/07 Patient s/p decompressive colonoscopy last night KUB this morning showed decreased colonic distention. On 4L oxygen. Objective Vital Signs Date Time Temp Pulse Resp B/P (MAP) Pulse Ox O2 Delivery O2 Flow Rate FiO2 05/07/17 07:28 98 Nasal Cannula 4.00 05/07/17 06:00 96 05/07/17 04:00 97.6 36 120/69 (86) 05/04/17 16:46 35 Intake and Output 05/07/17 05/07/17 05/08/17 08:00 16:00 00:00 Intake Total 125 ml Output Total 400 ml Balance -275 ml Result Diagram: 05/07/1761905/07/17619 Other Results Laboratory Tests Test 05/06/17 10:34 05/07/17 06:20 White Blood Count 10.8 TH/MM3 10.8 TH/MM3 Red Blood Count 2.56 MIL/MM3 2.49 MIL/MM3 Hemoglobin 9.4 GM/DL 8.8 GM/DL Hematocrit 28.1 % 27.3 % Mean Corpuscular Volume 109.8 FL 109.3 FL Mean Corpuscular Hemoglobin 36.8 PG 35.3 PG Mean Corpuscular Hemoglobin Concent 33.5 % 32.3 % Red Cell Distribution Width 24.7 % 24.4 % Platelet Count 129 TH/MM3 187 TH/MM3 Mean Platelet Volume 11.0 FL 10.5 FL Neutrophils (%) (Auto) 84.0 % 83.1 % Lymphocytes (%) (Auto) 3.6 % 4.0 % Monocytes (%) (Auto) 9.7 % 9.7 % Eosinophils (%) (Auto) 1.7 % 1.1 % Basophils (%) (Auto) 1.0 % 2.1 % Neutrophils # (Auto) 9.0 TH/MM3 9.0 TH/MM3 Lymphocytes # (Auto) 0.4 TH/MM3 0.4 TH/MM3 Monocytes # (Auto) 1.0 TH/MM3 1.0 TH/MM3 Eosinophils # (Auto) 0.2 TH/MM3 0.1 TH/MM3 Basophils # (Auto) 0.1 TH/MM3 0.2 TH/MM3 CBC Comment DIFF FINAL DIFF FINAL Differential Comment Blood Urea Nitrogen 16 MG/DL 15 MG/DL Creatinine 0.57 MG/DL 0.48 MG/DL Random Glucose 112 MG/DL 84 MG/DL Calcium Level 8.3 MG/DL 8.3 MG/DL Phosphorus Level 4.6 MG/DL Magnesium Level 1.8 MG/DL Sodium Level 142 MEQ/L 145 MEQ/L Potassium Level 4.0 MEQ/L 3.7 MEQ/L Chloride Level 109 MEQ/L 108 MEQ/L Carbon Dioxide Level 25.3 MEQ/L 27.9 MEQ/L Anion Gap 8 MEQ/L 9 MEQ/L Estimat Glomerular Filtration Rate 146 ML/MIN 178 ML/MIN B-Type Natriuretic Peptide 609 PG/ML Imaging Last Impressions Chest X-Ray 05/06/17 0000 Signed Impressions: Service Date/Time: Saturday, May 06, 2017 08:32 - CONCLUSION: Interval extubation. Overall lung exam appears stable concerning for multifocal pneumonia or aspiration. Tricia Ny MD Abdomen/Pelvis CT 05/05/17 0600 Signed Impressions: Service Date/Time: Friday, May 05, 2017 18:38 - CONCLUSION: 1. Interval development of gaseous distention of the right and transverse colon with abrupt change in luminal dimension at the splenic flexure. There is a rectal tube in place and cannot differentiate between a focal obstruction/stricture versus decompression from the rectal tube. 2. Increasing consolidation/atelectasis in the left lower lobe and persistent right lower lobe consolidation and bilateral pleural effusions. 3. Stable mild free fluid in the pelvis. Rogerio Gunn MD Abdomen X-Ray 05/05/17 0000 Signed Impressions: Service Date/Time: Friday, May 05, 2017 10:15 - CONCLUSION: Partially imaged structure in the midline consistent with an NG tube which is positioned above the level of the gastroesophageal junction. The medical team is aware of these findings. Tricia Ny MD Abdomen Fluoroscopy 05/01/17 0000 Signed Impressions: Service Date/Time: Monday, May 01, 2017 13:13 - CONCLUSION: Uncomplicated nasogastric tube placement as above. Zain Kumar MD Lower Extremity Ultrasound 04/28/17 0000 Signed Impressions: Service Date/Time: Friday, April 28, 2017 16:47 - CONCLUSION: Negative exam with no evidence of deep venous thrombosis. Johnathon White MD Chest CT 04/28/17 0000 Signed Impressions: Service Date/Time: Friday, April 28, 2017 11:03 - CONCLUSION: 1. Small bilateral pleural effusions with atelectasis in both lower lobes. There is also a focal area of groundglass opacity in the lingula that is nonspecific but could represent an infectious or inflammatory process. 2. Moderate size hiatal hernia with dilated and fluid-filled esophagus suggesting gastroesophageal reflux. The nasogastric tube distal tip is in the distal esophagus and should ideally be advanced into the stomach. Olu Triana MD Head CT 04/27/17 1017 Signed Impressions: Service Date/Time: Thursday, April 27, 2017 11:00 - CONCLUSION: 1. No acute intracranial abnormality. 2. Complete opacification left maxillary sinus. Keagan Shipman MD Renal Ultrasound 04/27/17 0000 Signed Impressions: Service Date/Time: Thursday, April 27, 2017 23:50 - CONCLUSION: Negative renal sonogram. Rogerio Gunn MD Objective Remarks GENERAL: 61 year old male lying in bed in NAD SKIN: Warm and dry. No rash HEAD: Normocephalic. EYES: No scleral icterus. Pupils are round 3 mm bilaterally and reactive No injection or drainage. NECK: Supple, trachea midline. No JVD or lymphadenopathy. CARDIOVASCULAR: RRR. S1, S2 no S4 without murmur RESPIRATORY: Breath sounds equal bilaterally. No accessory muscle use. GASTROINTESTINAL: Slightly distended. Hypoactive bowel sounds appreciated throughout. MUSCULOSKELETAL: No significant peripheral edema Neuro:Awake, Date of Insertion: Apr 28, 2017 Line: Central Venous Catheter Side: Right Location: Femoral A/P Assessment and Plan Neuro/Psych: Acute encephalopathy likely secondary to EtOH withdrawal/sepsis/hyperammonia Alcohol dependence Monitor neuro status Thiamine, folate and multivitamin daily CT brain 04/27 revealed left maxillary sinusitis otherwise no acute intra- cranial findings Patient does have a history of EtOH withdrawal seizures. Seizure precautions CV: Severe sepsis Lactic acidosis- cleared Monitor HR and BP keep MAP>65mmHg Lactic acid 1.7 04/29 Resp: COPD Ongoing tobaccoism Continue with oxygen keep sat >92% Aspiration precautions. Scheduled albuterol/ipratropium aerosols every 6 hours with albuterol aerosols every 2 hours when necessary dyspnea Nicotine patch 14 mg daily. GI: Hyperammonia - Elevated AST Hypoalbuminemia - mild protein calorie malnutrition Hiatal hernia Sigmoid diverticulosis Hepatic steatosis KUB this morning: Decreased colonic distention s/p decompressive colonoscopy 05/06: Stool throughout the colon, Decompression colon tube was placed 05/05 CT abdomen/pelvis last night showed development of gaseous distention of the right and transverse colon with abrupt change in luminal dimension at the splenic flexure. There is a rectal tube in place and cannot differentiate between a focal obstruction/stricture versus decompression from the rectal tube. For decompressive colonoscopy today. Recta KUB abdomen 05/04 showed severe ileus, cecum dilated to 10 cm s/p EGD 04/30: Esophagitis, gastritis, food impaction in distal esophagus removed. Keep NPO Pantoprazole for GI prophylaxis Docusate sodium/senna 1 tablet twice a day for bowel regimen Currently on lactulose 30 cc every 6 hours and Xifaxan 550 mg by mouth twice a day for elevated ammonia. : Right kidney nonobstructing stone 3 mm Renal ultrasound revealed no hydronephrosis On Bumex 1mg daily Monitor renal function, I/O's, electrolytes replacement per protocol. Endo: Sliding-scale insulin to maintain euglycemia with Accu-Cheks every 6 hours with low regimen with Novulin R TSH: 3.14 04/28 Heme: Macrocytic anemia Thrombocytopenia...improving Likely secondary to EtOH/chronic liver disease possibility of underlying sepsis There are no signs of consumption or hemolysis. Patient was transfused 2 pack platelets and 2 PRBC 04/28. Follow CBC daily. Monitor trends. ID: Off abx(s/p Zosyn 04/27- 05/06)monitor for signs of infections ( Fever, WBC) Afebrile, Pertinent cultures Blood cultures 2 -04/27 -no growth to date Urine culture - 04/27 -50 - 100,000 mixed gram-positive Sputum 04/28- normal resp andrea Urine pneumococcal and Legionella antigens negative MSK: PT evaluate and treat Access - Peripheral IV's Prophylaxis - GI - pantoprazole - DVT - SCD/no pharmacological prophylaxis in light of thrombocytopenia Level 3 Don Rod MD May 07, 2017 09:33
[2017-05-07] MEDS: LORazepam 2 MG/ML VIAL IV PUSH PRN ×2 (13:25→20:21)
--- NOTE | 2017-05-07 15:01 | HHI.GIFU ---
Subjective Remarks Resting in bed. Obtunded, but nurse reports that he was recently medicated with Ativan. No n/v. Abdomen soft. Rectal tube to LIWS with large amount of liquid stool (Kathrin Carreno) Objective Vitals I&O Vital Signs Date Time Temp Pulse Resp B/P (MAP) Pulse Ox O2 Delivery O2 Flow Rate FiO2 05/07/17 14:00 125 33 152/87 (108) 96 05/07/17 13:48 128 29 159/95 (116) 92 05/07/17 13:00 117 30 142/93 (109) 98 05/07/17 12:00 121 35 134/93 (107) 88 05/07/17 11:00 111 28 135/93 (107) 97 05/07/17 10:22 110 28 133/84 (100) 98 05/07/17 10:00 112 28 97 05/07/17 09:17 111 30 146/91 (109) 98 05/07/17 09:00 109 30 142/103 (116) 98 05/07/17 08:01 109 28 142/80 (100) 97 05/07/17 08:00 108 28 97 05/07/17 07:28 98 Nasal Cannula 4.00 05/07/17 06:00 96 05/07/17 04:00 117 05/07/17 04:00 97.6 117 36 120/69 (86) 97 05/07/17 02:00 106 05/07/17 00:00 116 05/07/17 00:00 97.9 116 36 123/67 (85) 94 05/06/17 22:00 112 05/06/17 20:44 98 Nasal Cannula 3.00 05/06/17 20:00 143 05/06/17 20:00 98.8 143 23 109/64 (79) 96 05/06/17 19:30 98.0 108 37 118/59 (78) 94 Nasal Cannula 4 05/06/17 19:15 109 30 104/59 (74) 93 Nasal Cannula 5 05/06/17 19:00 102 40 113/69 (84) 98 Simple Mask 10 05/06/17 18:55 97.6 96 38 104/83 (90) 96 Simple Mask 10 05/06/17 16:00 93 05/06/17 16:00 97.6 93 41 120/56 (77) 91 05/06/17 15:00 79 27 121/63 (82) 100 I/O 05/06/17 05/06/17 05/06/17 05/07/17 05/07/17 05/07/17 07:00 15:00 23:00 07:00 15:00 23:00 Intake Total 544 ml 225 ml 1100 ml 125 ml Output Total 950 ml 2175 ml 400 ml Balance -406 ml 225 ml -1075 ml -275 ml Intake Oral 0 ml 0 ml IV Total 244 ml 225 ml 300 ml 125 ml Tube Feeding 200 ml Other 300 ml 600 ml Output Urine Total 800 ml 1200 ml 350 ml Stool Total 150 ml 500 ml 50 ml Gastric Drainage Total 75 ml Drainage Total 400 ml # Bowel Movements 3 Laboratory Laboratory Tests Test 05/07/17 06:20 White Blood Count 10.8 Red Blood Count 2.49 Hemoglobin 8.8 Hematocrit 27.3 Mean Corpuscular Volume 109.3 Mean Corpuscular Hemoglobin 35.3 Mean Corpuscular Hemoglobin Concent 32.3 Red Cell Distribution Width 24.4 Platelet Count 187 Mean Platelet Volume 10.5 Neutrophils (%) (Auto) 83.1 Lymphocytes (%) (Auto) 4.0 Monocytes (%) (Auto) 9.7 Eosinophils (%) (Auto) 1.1 Basophils (%) (Auto) 2.1 Neutrophils # (Auto) 9.0 Lymphocytes # (Auto) 0.4 Monocytes # (Auto) 1.0 Eosinophils # (Auto) 0.1 Basophils # (Auto) 0.2 CBC Comment DIFF FINAL Differential Comment Blood Urea Nitrogen 15 Creatinine 0.48 Random Glucose 84 Calcium Level 8.3 Sodium Level 145 Potassium Level 3.7 Chloride Level 108 Carbon Dioxide Level 27.9 Anion Gap 9 Estimat Glomerular Filtration Rate 178 Date/Time Source Procedure Growth Status 04/27/17 14:15 Blood Peripheral Aerobic Blood Culture - Final NO GROWTH IN 5 DAYS Complete 04/27/17 14:15 Blood Peripheral Anaerobic Blood Culture - Final NO GROWTH IN 5 DAYS Complete 04/28/17 14:45 Sputum Endotracheal Gram Stain - Final Complete 04/28/17 14:45 Sputum Endotracheal Sputum Culture - Final LIGHT GROWTH NORMAL RESPIRATORY ANDREA Complete 05/06/17 07:50 Urine Catheterized Urine Urine Culture - Preliminary NO GROWTH IN 24 HOURS. Resulted Imaging Last Impressions Abdomen X-Ray 05/07/17 0000 Signed Impressions: Service Date/Time: Sunday, May 07, 2017 04:24 - CONCLUSION: Colonic tube placed, tip in the right side. Decreased colonic distention. Olu Blackwood MD Chest X-Ray 05/06/17 0000 Signed Impressions: Service Date/Time: Saturday, May 06, 2017 08:32 - CONCLUSION: Interval extubation. Overall lung exam appears stable concerning for multifocal pneumonia or aspiration. Tricia Ny MD Abdomen/Pelvis CT 05/05/17 0600 Signed Impressions: Service Date/Time: Friday, May 05, 2017 18:38 - CONCLUSION: 1. Interval development of gaseous distention of the right and transverse colon with abrupt change in luminal dimension at the splenic flexure. There is a rectal tube in place and cannot differentiate between a focal obstruction/stricture versus decompression from the rectal tube. 2. Increasing consolidation/atelectasis in the left lower lobe and persistent right lower lobe consolidation and bilateral pleural effusions. 3. Stable mild free fluid in the pelvis. Rogerio Gunn MD Abdomen Fluoroscopy 05/01/17 0000 Signed Impressions: Service Date/Time: Monday, May 01, 2017 13:13 - CONCLUSION: Uncomplicated nasogastric tube placement as above. Zain Kumar MD Lower Extremity Ultrasound 04/28/17 0000 Signed Impressions: Service Date/Time: Friday, April 28, 2017 16:47 - CONCLUSION: Negative exam with no evidence of deep venous thrombosis. Johnathon White MD Chest CT 04/28/17 0000 Signed Impressions: Service Date/Time: Friday, April 28, 2017 11:03 - CONCLUSION: 1. Small bilateral pleural effusions with atelectasis in both lower lobes. There is also a focal area of groundglass opacity in the lingula that is nonspecific but could represent an infectious or inflammatory process. 2. Moderate size hiatal hernia with dilated and fluid-filled esophagus suggesting gastroesophageal reflux. The nasogastric tube distal tip is in the distal esophagus and should ideally be advanced into the stomach. Olu Triana MD Head CT 04/27/17 1017 Signed Impressions: Service Date/Time: Thursday, April 27, 2017 11:00 - CONCLUSION: 1. No acute intracranial abnormality. 2. Complete opacification left maxillary sinus. Keagna Shipman MD Renal Ultrasound 04/27/17 0000 Signed Impressions: Service Date/Time: Thursday, April 27, 2017 23:50 - CONCLUSION: Negative renal sonogram. Rogerio Gunn MD Physical Exam HEENT: Normocephalic CHEST: Resp even, mildly labored. Course breath sounds. CARDIAC: RRR ABDOMEN: Soft, mildly distended, Rectal tube to LIWS- large amount of brown liquid stool. Hypoactive bowel sounds. EXTREMITIES: Mild peripheral edema. BUSINESS BROKER: Obtunded, nurse reports recently medicated with ativan (Kathrin Carreno) Assessment and Plan Plan ASSESSMENT - Colonic ileus. CT Scan abdomen and pelvis with IV contrast (05/05/17)----> Interval development of gaseous distention of the right and transverse colon with abrupt change in luminal dimension at the splenic flexure. There is a rectal tube in place and cannot differentiate between a focal obstruction/stricture versus decompression from the rectal tube. Increasing consolidation/atelectasis in the left lower lobe and persistent right lower lobe consolidation and bilateral pleural effusion. Stable mild free fluid in the pelvis. S/P 2 SSE. S/P Relistor S/P Decompressive colonoscopy (05/06/17)----> stool throughout the colon, I did not see any masses, visualization was compromised with stool, decompression colon tube was placed. Miralax, Lactulose. Rpt. KUB (05/07/17)--> Colonic tube placed, tip in the right side. Decreased colonic distention. Abdomen soft. Rectal tube to LIWS, large amount of liquid stool. Will start trickle feeds. - Anemia, macrocytic. S/P EGD (04/30/17)---> Martinez esophagus, Esophagitis, Gastritis, Foreign body in the distal esophagus. Pathology reactive gastropathy. S/P 2 units RBC, 2 units Platelets. Vitamin B12 1298. HH 8.8/27.3. PPI - Martinez's Esophagus, Esophagitis, Gastritis. Pathology reactive gastropathy. PPI - Foreign body in distal esophagus, s/p EGD. - Elevated ammonia, acute encephalopathy. Ammonia 45. Lactulose, Xifaxan. - Elevated bilirubin. CT as above. History of ETOH abuse, drinks 1/5 of vodka daily. Hypoalbuminemia with albumin 2.1. Mild coagulopathy. Suspect liver cirrhosis, likely secondary to alcohol, fatty liver disease. Check ammonia level. - Thrombocytopenia. S/P 2 platelet transfusion. - Sepsis, unclear source. Urine negative for legionella, streptococcus, bcx neg , sputum cx with light growth normal respiratory andrea. CT reveals possible pneumonia. - Respiratory failure, COPD. Pt extubated on Sunday. Mildly labored breathing. - Encephalopathy. Obtunded, but nurse reports she recently medicated with ativan. Will check ammonia level. PLAN - Jevity 1.5 at 20cc/hr and increase to GR of 60 ml/hr as tolerated - If patient more alert, okay for swallow evaluation and clear liquids as tolerated - Cont. Miralax - Cont. Xifaxan - Cont. PPI - S/P Relistor (05/04) - S/P SSE x 2 - S/P Magnesium citrate - S/P Decompressive colonoscopy - Ammonia level - Supportive care - Further recommendations to follow based on results of above. - Patient seen and examined by Dr. Green and myself and this note is written on her behalf. (Kathrin Carreno) Physician Comments seen, examined agree with above feeding started, than placed on hold due to respiratory status we will reevaluate in am (Roxanne Green MD) Kathrin Carreno May 07, 2017 15:01 Roxanne Green MD May 07, 2017 19:23
[2017-05-07 18:11] LABS: BLOOD GAS BASE EXCESS -0.7 mmol/L (-2-2); BLOOD GAS CARBOXYHEMOGLOBIN 1.4 % (0-4); BLOOD GAS HCO3 28 mmol/L (22-26); BLOOD GAS METHEMOGLOBIN 1.2 % (0-2); BLOOD GAS O2 HGB SATURATION 92 % (90-100); BLOOD GAS OXYGEN CONTENT 13.2 Vol % (12.0-20.0); BLOOD GAS PCO2 84 mmHg (38-42); BLOOD GAS PO2 94 mmHg (61-120); BLOOD GAS TOTAL HGB 10.2 G/DL (12.0-16.0); CRITICAL VALUE YES; OXYGEN DEVICE NASAL CANNULA; TEMP CORR TO 98.6
[2017-05-07 18:12] LABS: DRAW SITE LT RADIAL; LITER FLOW 4 L/M; NUMBER OF ARTERIAL PUNCTURES 1; STAT YES; ULNAR PULSE PRESENT
--- NOTE | 2017-05-07 19:45 | EKG ---
Date Performed: 05/06/2017 Time Performed: 10:11:42 PTAGE: 61 years EKG: Sinus rhythm Prolonged QT interval Poor R wave progression - probable normal variant Extensive T wave changes are nonspecific Generalized low QRS voltages Borderline ECG PREVIOUS TRACING : 04/27/2017 10.03 Compared to prior tracing no significant change DOCTOR: Mihir Turner Interpretating Date/Time 05/07/2017 19:39:57
[2017-05-07 19:51] LABS: BLOOD GAS BASE EXCESS 0.7 mmol/L (-2-2); BLOOD GAS CARBOXYHEMOGLOBIN 1.8 % (0-4); BLOOD GAS HCO3 26 mmol/L (22-26); BLOOD GAS METHEMOGLOBIN 1.1 % (0-2); BLOOD GAS O2 HGB SATURATION 89 % (90-100); BLOOD GAS OXYGEN CONTENT 12.2 Vol % (12.0-20.0); BLOOD GAS PCO2 49 mmHg (38-42); BLOOD GAS PO2 65 mmHg (61-120); BLOOD GAS TOTAL HGB 9.7 G/DL (12.0-16.0); TEMP CORR TO 98.6
[2017-05-07 19:52] LABS: CRITICAL VALUE YES; DRAW SITE LT RADIAL; FIO2 50 %; NUMBER OF ARTERIAL PUNCTURES 1; OXYGEN DEVICE BiPAP; STAT YES; ULNAR PULSE PRESENT; VENT SETTINGS IPAP 10/EPAP +5
[2017-05-08] VITALS (81 sets, daily range): BP systolic 76–141; BP diastolic 44–84; PULSE 70–178; RESP 17–29; TEMP 96.8–98.6; O2SAT 90–100
[2017-05-08] MEDS: RESP: ALBUTEROL 2.5 MG/IPRATROPIUM 0.5 MG NEB (SCH) INH ×3 (00:10→07:16)
[2017-05-08] MEDS: LACTULOSE SYRUP 20 GM/30 ML CUP PO SCH ×4 (03:18→19:33)
[2017-05-08] MEDS: ARTIFICIAL TEARS OPTH SOLN 15 ML BTL EACH EYE SCH ×3 (06:00→22:00)
[2017-05-08 06:25] LABS: BICARBONATE 27.1 MEQ/L (21.0-32.0); POTASSIUM 4.2 MEQ/L (3.5-5.1)
[2017-05-08 06:42] LABS: BLOOD GAS BASE EXCESS 1.7 mmol/L (-2-2); BLOOD GAS CARBOXYHEMOGLOBIN 1.8 % (0-4); BLOOD GAS HCO3 27 mmol/L (22-26); BLOOD GAS METHEMOGLOBIN 1.1 % (0-2); BLOOD GAS O2 HGB SATURATION 87 % (90-100); BLOOD GAS OXYGEN CONTENT 11.6 Vol % (12.0-20.0); BLOOD GAS PCO2 50 mmHg (38-42); BLOOD GAS PO2 60 mmHg (61-120); BLOOD GAS TOTAL HGB 9.5 G/DL (12.0-16.0); TEMP CORR TO 98.6
[2017-05-08 06:43] LABS: CRITICAL VALUE YES; OXYGEN DEVICE BIPAP
[2017-05-08 06:44] LABS: DRAW SITE LT RADIAL; FIO2 50 %; NUMBER OF ARTERIAL PUNCTURES 1; STAT NO; ULNAR PULSE PRESENT
[2017-05-08] MEDS ORDERED: ETOMIDATE 20 MG/10 ML VIAL ONE (06:50)
[2017-05-08] MEDS ORDERED: PROPOFOL 1000 MG/100 ML INJ 100 ML ONE (06:50)
[2017-05-08 06:52] LABS: AUTOMATED NEUTROPHIL # 8.8 TH/MM3 (1.8-7.7); BASOPHIL # 0.3 TH/MM3 (0-0.2); BASOPHIL % 2.4 % (0.0-2.0); EOSINOPHIL # 0.2 TH/MM3 (0-0.4); EOSINOPHIL % 1.8 % (0.0-4.0); HEMATOCRIT 30.1 % (39.0-51.0); HEMO FLAGS AUTO DIFF; LYMPH % 5.9 % (9.0-44.0); LYMPHOCYTE # 0.6 TH/MM3 (1.0-4.8); MEAN CELL VOLUME 107.8 FL (80.0-100.0); MEAN CORPUSCULAR HGB CONC 33.4 % (32.0-36.0); MONO % 8.8 % (0.0-8.0); NEUT % 81.1 % (16.0-70.0); PLATELET COUNT 187 TH/MM3 (150-450); RED BLOOD COUNT 2.79 MIL/MM3 (4.50-5.90); RED CELL DISTRIBUTION WIDTH 25.3 % (11.6-17.2); WHITE BLOOD COUNT 10.9 TH/MM3 (4.0-11.0)
[2017-05-08 07:38] LABS: BANDS 6 % (0-6); BASOPHILS 1 % (0-2); EOSINOPHILS 2 % (0-4); MYELOCYTES 1 % (0-0); PLATELET ESTIMATE SMEAR NORMAL (NORMAL); PLATELET MORPHOLOGY ENLARGED (NORMAL); POLYS (SEG NEUTROPHILS) 76 % (16-70); SCAN/DIFF FINAL DIFF MANUAL; TOXIC GRANULATION 1+ (NORMAL); WBC DIFF SAMPLE 100
[2017-05-08] MEDS: PROPOFOL 1000 MG/100 ML INJ 100 ML IV PRN (07:45)
--- NOTE | 2017-05-08 07:55 | RADRPT ---
EXAM DATE/TIME: 05/08/2017 07:12 [facility] COMPARISON: CHEST SINGLE AP, May 06, 2017, 8:32. INDICATIONS : Shortness of breath. Status post intubation. MEDICAL HISTORY : Chronic obstructive pulmonary disease. Seizure. SURGICAL HISTORY : None. ENCOUNTER: Subsequent ACUITY: 1 week PAIN SCORE: Non-responsive. LOCATION: Bilateral chest FINDINGS: A single AP portable semierect view of the chest was obtained and demonstrates interval placement of endotracheal tube with the tip approximately 4.5 cm above the hoda. The nasogastric tube remains in place with the tip in the proximal stomach and the side-port projected over the distal esophagus. Th ere is now complete opacification of the left hemithorax with volume loss and mediastinal shift to le ft. There is abrupt cut off of the left mainstem bronchus. The right lung is clear. Bony thorax remai ns intact. There are overlying electrocardiogram leads. CONCLUSION: 1. Interval intubation with endotracheal tube tip approximately 4.5 cm above the hoda. 2. Abrupt cut off of the left mainstem bronchus with complete opacification of the left hemithorax no w noted with mediastinal shift to the left. This is consistent with atelectasis or collapse. This cou ld be due to a mucous plug. 3. A gastric tube remains in place the distal side-port projected over the distal esophagus. The tube could be advanced at least 5 cm. Johnathon White MD on May 08, 2017 at 7:51 Board Certified Radiologist. This report was verified electronically.
--- NOTE | 2017-05-08 07:58 | RADRPT ---
EXAM DATE/TIME: 05/08/2017 07:20 [facility] COMPARISON: ABDOMEN KUB ONLY, May 07, 2017, 4:24. INDICATIONS : Abdominal pain and colon tube in place. Evaluate for ileus. MEDICAL HISTORY : Chronic obstructive pulmonary disease. Seizures. SURGICAL HISTORY : None. ENCOUNTER: Subsequent ACUITY: 1 week PAIN SCORE: Non-responsive. LOCATION: Bilateral Abdomen FINDINGS: 2 AP supine views of the abdomen and pelvis were obtained and again demonstrate a colonic tube in abel ce with the tip projected over the cecum. There is gaseous dilatation of the ascending and transverse colon again noted which is mildly improved. The transverse colon now measures up to approximately 7. 2 cm in diameter compared to 9.9 cm on the prior study. A nasogastric tube is noted in the proximal s tomach. There is no evidence of free air on this supine study. The bony structures remain intact. CONCLUSION: 1. Mild improvement in the bowel gas pattern with decreased gaseous distention of the colon. 2. The colonic tube remains in place. Johnathon White MD on May 08, 2017 at 7:54 Board Certified Radiologist. This report was verified electronically.
[2017-05-08 08:57] LABS: BLOOD GAS CARBOXYHEMOGLOBIN 1.4 % (0-4); BLOOD GAS HCO3 27 mmol/L (22-26); BLOOD GAS METHEMOGLOBIN 1.1 % (0-2); BLOOD GAS O2 HGB SATURATION 98 % (90-100); BLOOD GAS PCO2 50 mmHg (38-42); BLOOD GAS PO2 302 mmHg (61-120); BLOOD GAS TOTAL HGB 12.6 G/DL (12.0-16.0); TEMP CORR TO 98.6
[2017-05-08 08:58] LABS: CRITICAL VALUE NO; DRAW SITE LT RADIAL; FIO2 100 %; NUMBER OF ARTERIAL PUNCTURES 2; OXYGEN DEVICE VENTILATOR; STAT NO; ULNAR PULSE PRESENT; VENT SETTINGS 550/AC14/PEEP5
[2017-05-08] MEDS: REMOVE OLD PATCH T-DERMAL SCH (09:00)
[2017-05-08] MEDS: FOLIC ACID 1 MG TAB PO SCH (09:02)
[2017-05-08] MEDS: CHLORHEXIDINE 0.12% (ORAL KIT) 15 ML CUP MT SCH ×2 (09:02→19:34)
[2017-05-08] MEDS: RIFAXIMIN 550 MG TAB PO SCH ×2 (09:02→19:33)
[2017-05-08] MEDS: GABAPENTIN 300 MG CAP PO SCH ×3 (09:02→18:00)
[2017-05-08] MEDS: POLYETHYLENE GLYCOL 17 GM PKG PO SCH (09:02)
[2017-05-08] MEDS: DOCUSATE SODIUM 50 MG/SENNA 8.6 MG TAB PO SCH ×2 (09:02→19:33)
[2017-05-08] MEDS: THIAMINE HCL 100 MG TAB PO SCH (09:02)
[2017-05-08] MEDS: PANTOPRAZOLE SODIUM 40 MG VIAL IV PUSH SCH (09:02)
[2017-05-08] MEDS: MULTIVITAMIN TAB PO SCH (09:02)
[2017-05-08] MEDS: NICOTINE 14 MG/24 HR PATCH T-DERMAL SCH (09:03)
[2017-05-08] MEDS: BUMETANIDE INJ 1 MG/4 ML VIAL IV PUSH SCH (09:03)
[2017-05-08] MEDS ORDERED: RESP: ALBUTEROL 2.5 MG/IPRATROPIUM 0.5 MG NEB (PRN) NEB (10:00)
[2017-05-08] MEDS: FREE WATER G-TUBE SCH ×2 (10:00→18:00)
--- NOTE | 2017-05-08 10:09 | HHI.CCPN ---
Subjective Remarks/Hospital Course 61yM with h/o prior hepatic encephalopathy, etoh abuse, tobacco abuse, now admitted with weakness, fever, chills, worsening hypotension. called by hospitalist service overnight for clinical decline despite ivf resuscitation. Patient does complain of flank pain, but denies chest pain, abdominal pain. u/a +. started earlier on vanc/zosyn. has not voided. becoming worseningly agitated. unable to provide any additional information due to altered mental status. 04/28: Chart reviewed. Patient still quite agitated stating "I have to pee" patient has a Young catheter. Complaining of flank pain. Noted renal ultrasound negative. Currently on norepinephrine at 12 mg per minute. 04/29: Resting in bed in no acute distress. Currently on norepinephrine at 7 per minute for vasopressor support. Transfuse 2 units PRBC and 2 pack platelets overnight. Dilutional. Absolutely no signs of active bleeding. 04/30 Patient is sedated with Fentanyl and intubated. On Levophed 5 mics. Afebrile. For EGD today. 05/01 No events overnight. Sedated and intubated. On Levophed 4 mics. s/p EGD yesterday with shoed esophagitis, gastritis, food impaction in distal esophagus removed. Subjective 05/02: Afebrile. Off all vasopressors. NG tube advanced by IR yesterday. Feeding to be initiated today. Currently on fentanyl drip 05/03: Remains intubated sedated and not following commands remains on fentanyl infusion. Attempt CPAP trial if patient wakeful enough. Urine output minimal only 300 mL in 24 hours. Will give albumin and Bumex 05/04 Patient is sedated with Fentanyl and intubated. Afebrile. 05/05 Patient was self extubated last night. For possible decompressive colonoscopy today. Afebrile. 05/06 Patient is on 3L oxygen for decompressive colonoscopy today. On Precedex drip for agitation. CT abdomen/pelvis last night showed development of gaseous distention of the right and transverse colon with abrupt change in luminal dimension at the splenic flexure. There is a rectal tube in place and cannot differentiate between a focal obstruction/stricture versus decompression from the rectal tube. 05/07 Patient s/p decompressive colonoscopy last night KUB this morning showed decreased colonic distention. On 4L oxygen. 10/3 Patient was unresponsive on BIPAP this morning and was in resp distress he was subsequently intubated and placed on mechanical ventilation. CXR post intubation showed complete opacification of left hemithorax likely 2nd mucous plug Objective Vital Signs Date Time Temp Pulse Resp B/P (MAP) Pulse Ox O2 Delivery O2 Flow Rate FiO2 05/08/17 07:49 100 100 05/08/17 06:00 101 05/08/17 04:02 98.6 29 121/76 (91) 05/08/17 00:11 BiPAP 05/07/17 07:28 4.00 Intake and Output 05/08/17 05/08/17 05/09/17 08:00 16:00 00:00 Output Total 325 ml Balance -325 ml Result Diagram: 05/08/17 0453 05/08/17 0453 Other Results Laboratory Tests Test 05/07/17 18:03 05/07/17 19:38 05/07/17 21:21 05/08/17 04:53 Blood Gas Puncture Site LT RADIAL LT RADIAL Blood Gas Patient Temperature 98.6 98.6 Blood Gas HCO3 28 mmol/L 26 mmol/L Blood Gas Base Excess -0.7 mmol/L 0.7 mmol/L Blood Gas Oxygen Saturation 92 % 89 % Arterial Blood pH 7.14 7.34 Arterial Blood Partial Pressure CO2 84 mmHg 49 mmHg Arterial Blood Partial Pressure O2 94 mmHg 65 mmHg Arterial Blood Oxygen Content 13.2 Vol % 12.2 Vol % Arterial Blood Carboxyhemoglobin 1.4 % 1.8 % Arterial Blood Methemoglobin 1.2 % 1.1 % Blood Gas Hemoglobin 10.2 G/DL 9.7 G/DL Oxygen Delivery Device NASAL CANNULA BiPAP Blood Gas Liter Flow 4 L/M Blood Gas Ventilator Setting IPAP 10/EPAP +5 Blood Gas Inspired Oxygen 50 % Ammonia 80 MCMOL/L White Blood Count 10.9 TH/MM3 Red Blood Count 2.79 MIL/MM3 Hemoglobin 10.0 GM/DL Hematocrit 30.1 % Mean Corpuscular Volume 107.8 FL Mean Corpuscular Hemoglobin 36.0 PG Mean Corpuscular Hemoglobin Concent 33.4 % Red Cell Distribution Width 25.3 % Platelet Count 187 TH/MM3 Mean Platelet Volume 10.5 FL Neutrophils (%) (Auto) 81.1 % Lymphocytes (%) (Auto) 5.9 % Monocytes (%) (Auto) 8.8 % Eosinophils (%) (Auto) 1.8 % Basophils (%) (Auto) 2.4 % Neutrophils # (Auto) 8.8 TH/MM3 Lymphocytes # (Auto) 0.6 TH/MM3 Monocytes # (Auto) 1.0 TH/MM3 Eosinophils # (Auto) 0.2 TH/MM3 Basophils # (Auto) 0.3 TH/MM3 CBC Comment AUTO DIFF Differential Total Cells Counted 100 Neutrophils % (Manual) 76 % Band Neutrophils % 6 % Lymphocytes % 3 % Monocytes % 11 % Eosinophils % 2 % Basophils % 1 % Neutrophils # (Manual) 9.0 TH/MM3 Myelocytes 1 % Differential Comment FINAL DIFF MANUAL Toxic Granulation 1+ Platelet Estimate NORMAL Platelet Morphology Comment ENLARGED Hematology Comments Blood Urea Nitrogen 17 MG/DL Creatinine 0.57 MG/DL Random Glucose 85 MG/DL Calcium Level 8.5 MG/DL Sodium Level 148 MEQ/L Potassium Level 4.2 MEQ/L Chloride Level 111 MEQ/L Carbon Dioxide Level 27.1 MEQ/L Anion Gap 10 MEQ/L Estimat Glomerular Filtration Rate 146 ML/MIN Test 05/08/17 06:25 05/08/17 08:39 Blood Gas Puncture Site LT RADIAL LT RADIAL Blood Gas Patient Temperature 98.6 98.6 Blood Gas HCO3 27 mmol/L 27 mmol/L Blood Gas Base Excess 1.7 mmol/L 2.0 mmol/L Blood Gas Oxygen Saturation 87 % 98 % Arterial Blood pH 7.35 7.36 Arterial Blood Partial Pressure CO2 50 mmHg 50 mmHg Arterial Blood Partial Pressure O2 60 mmHg 302 mmHg Arterial Blood Oxygen Content 11.6 Vol % 18.0 Vol % Arterial Blood Carboxyhemoglobin 1.8 % 1.4 % Arterial Blood Methemoglobin 1.1 % 1.1 % Blood Gas Hemoglobin 9.5 G/DL 12.6 G/DL Oxygen Delivery Device BIPAP VENTILATOR Blood Gas Ventilator Setting SEE COMMENT 550/AC14/PEEP5 Blood Gas Inspired Oxygen 50 % 100 % Imaging Last Impressions Abdomen X-Ray 05/07/17 0000 Signed Impressions: Service Date/Time: Sunday, May 07, 2017 04:24 - CONCLUSION: Colonic tube placed, tip in the right side. Decreased colonic distention. Olu Blackwood MD Chest X-Ray 05/06/17 0000 Signed Impressions: Service Date/Time: Saturday, May 06, 2017 08:32 - CONCLUSION: Interval extubation. Overall lung exam appears stable concerning for multifocal pneumonia or aspiration. Tricia Ny MD Abdomen/Pelvis CT 05/05/17 0600 Signed Impressions: Service Date/Time: Friday, May 05, 2017 18:38 - CONCLUSION: 1. Interval development of gaseous distention of the right and transverse colon with abrupt change in luminal dimension at the splenic flexure. There is a rectal tube in place and cannot differentiate between a focal obstruction/stricture versus decompression from the rectal tube. 2. Increasing consolidation/atelectasis in the left lower lobe and persistent right lower lobe consolidation and bilateral pleural effusions. 3. Stable mild free fluid in the pelvis. Rogerio Gunn MD Abdomen Fluoroscopy 05/01/17 0000 Signed Impressions: Service Date/Time: Monday, May 01, 2017 13:13 - CONCLUSION: Uncomplicated nasogastric tube placement as above. Zain Kumar MD Lower Extremity Ultrasound 04/28/17 0000 Signed Impressions: Service Date/Time: Friday, April 28, 2017 16:47 - CONCLUSION: Negative exam with no evidence of deep venous thrombosis. Johnathon White MD Chest CT 04/28/17 0000 Signed Impressions: Service Date/Time: Friday, April 28, 2017 11:03 - CONCLUSION: 1. Small bilateral pleural effusions with atelectasis in both lower lobes. There is also a focal area of groundglass opacity in the lingula that is nonspecific but could represent an infectious or inflammatory process. 2. Moderate size hiatal hernia with dilated and fluid-filled esophagus suggesting gastroesophageal reflux. The nasogastric tube distal tip is in the distal esophagus and should ideally be advanced into the stomach. Olu Triana MD Head CT 04/27/17 1017 Signed Impressions: Service Date/Time: Thursday, April 27, 2017 11:00 - CONCLUSION: 1. No acute intracranial abnormality. 2. Complete opacification left maxillary sinus. Keagan Shipman MD Renal Ultrasound 04/27/17 0000 Signed Impressions: Service Date/Time: Thursday, April 27, 2017 23:50 - CONCLUSION: Negative renal sonogram. Rogerio Gunn MD Objective Remarks GENERAL: 61 year old male intubated SKIN: Warm and dry. No rash HEAD: Normocephalic. EYES: No scleral icterus. Pupils are round 3 mm bilaterally and reactive No injection or drainage. NECK: Supple, trachea midline. No JVD or lymphadenopathy. Orally intubated CARDIOVASCULAR: RRR. S1, S2 no S4 without murmur RESPIRATORY: Breath sounds equal bilaterally. No accessory muscle use. GASTROINTESTINAL: Slightly distended. Hypoactive bowel sounds appreciated throughout. MUSCULOSKELETAL: No significant peripheral edema Neuro:Sedated, intubated Date of Insertion: Apr 28, 2017 Line: Central Venous Catheter Side: Right Location: Femoral A/P Assessment and Plan Neuro/Psych: Acute encephalopathy likely secondary to EtOH withdrawal/sepsis/hyperammonia Alcohol dependence Fentanyl infusion for sedation and vent synchrony. Daily sedation vacation. Monitor neuro status Thiamine, folate and multivitamin daily CT brain 04/27 revealed left maxillary sinusitis otherwise no acute intra- cranial findings Patient does have a history of EtOH withdrawal seizures. Seizure precautions CV: Severe sepsis Lactic acidosis- cleared Monitor HR and BP keep MAP>65mmHg Lactic acid 1.7 04/29 Resp: VDRF- reintubated 05/08 COPD Ongoing tobaccoism Continue with vent support keep sat >92% Bronchodilators, Mucomyst. ICU vent bundle CXR post intubation showed complete opacification of left hemithorax likely 2nd mucous plug/thick secretions Will proceed with Bronch/BAL today Nicotine patch 14 mg daily. GI: Hyperammonia - Elevated AST Hypoalbuminemia - mild protein calorie malnutrition Hiatal hernia Sigmoid diverticulosis Hepatic steatosis KUB today: Mild improvements in bowel gas pattern. KUB 05/07: Decreased colonic distention s/p decompressive colonoscopy 05/06: Stool throughout the colon, Decompression colon tube was placed 05/05 CT abdomen/pelvis last night showed development of gaseous distention of the right and transverse colon with abrupt change in luminal dimension at the splenic flexure. There is a rectal tube in place and cannot differentiate between a focal obstruction/stricture versus decompression from the rectal tube. For decompressive colonoscopy today. Recta KUB abdomen 05/04 showed severe ileus, cecum dilated to 10 cm s/p EGD 04/30: Esophagitis, gastritis, food impaction in distal esophagus removed. Keep NPO Pantoprazole for GI prophylaxis Docusate sodium/senna 1 tablet twice a day for bowel regimen Currently on lactulose 30 cc every 6 hours and Xifaxan 550 mg by mouth twice a day for elevated ammonia. : Right kidney nonobstructing stone 3 mm Renal ultrasound revealed no hydronephrosis d/c Bumex, place on Free water 200ml Q8. Monitor sodium level. Monitor renal function, I/O's, electrolytes replacement per protocol. Endo: Sliding-scale insulin to maintain euglycemia with Accu-Cheks every 6 hours with low regimen with Novulin R TSH: 3.14 04/28 Heme: Macrocytic anemia Thrombocytopenia...improving Likely secondary to EtOH/chronic liver disease possibility of underlying sepsis Patient was transfused 2 pack platelets and 2 PRBC 04/28. Follow CBC daily. Monitor trends. ID: Off abx(s/p Zosyn 04/27- 05/06)monitor for signs of infections ( Fever, WBC) Afebrile, Pertinent cultures Blood cultures 2 -04/27 -no growth to date Urine culture - 04/27 -50 - 100,000 mixed gram-positive Sputum 04/28- normal resp andrea Urine pneumococcal and Legionella antigens negative MSK: PT evaluate and treat Access - Peripheral IV's Prophylaxis - GI - pantoprazole - DVT - SCD/ start Heparin SQ , H/ H stable Level 3 Don Rod MD May 08, 2017 10:09
[2017-05-08] MEDS: SODIUM CHLORIDE 0.9% FLUSH 10 ML FLUSH IVF SCH (10:27)
[2017-05-08] MEDS: fentaNYL DRIP 250 ML IV PRN (10:27)
[2017-05-08] MEDS: RESP: ALBUTEROL 2.5 MG/IPRATROPIUM 0.5 MG NEB (SCH) NEB ×4 (12:15→23:36)
[2017-05-08] MEDS: RESP: ACETYLCYSTEINE 10% 30 ML NEB NEB SCH ×4 (12:16→23:36)
--- NOTE | 2017-05-08 12:54 | RADRPT ---
EXAM DATE/TIME: 05/08/2017 12:34 [facility] COMPARISON: CHEST SINGLE AP, May 08, 2017, 7:12. INDICATIONS : Post bronch. MEDICAL HISTORY : Chronic obstructive pulmonary disease. SURGICAL HISTORY : None. ENCOUNTER: Subsequent ACUITY: 1 week PAIN SCORE: Non-responsive. LOCATION: Bilateral chest FINDINGS: A single view of the chest demonstrates better aeration left upper lobe. Persistent consolidation lef t midlung and left lower lobe with volume loss. Right lung clear. Endotracheal tube and nasogastric t ube unchanged. Osseous structures are intact. No pneumothorax. CONCLUSION: 1. Better aeration left upper lobe. 2. Persistent volume loss and consolidation left midlung and left lower lobe. Keagan Shipman MD on May 08, 2017 at 12:51 Board Certified Radiologist. This report was verified electronically.
--- NOTE | 2017-05-08 13:26 | RADRPT ---
EXAM DATE/TIME: 05/08/2017 13:01 [facility] COMPARISON: No previous studies available for comparison. INDICATIONS : Left pleural effusion. MEDICAL HISTORY : Seizures. ETOH withdraw. Confusion. Weakness. COPD. Gait problems. SURGICAL HISTORY : Tonsillectomy. ENCOUNTER: Initial ACUITY: 1 day PAIN SCORE: Nonresponsive. LOCATION: Left chest MEASUREMENTS: SKIN TO PARIETAL PLEURA: Inadequate fluid SKIN TO MAX SAFE DEPTH: Inadequate fluid ESTIMATED FLUID VOLUME: 252 cc FLUID COMPOSITION: simple FINDINGS: No marking was performed. CONCLUSION: 1. There is a small left pleural effusion with insufficient volume for thoracentesis at this time. Ronaldo Howell MD on May 08, 2017 at 13:24 Board Certified Radiologist. This report was verified electronically.
[2017-05-08] MEDS: LORazepam 2 MG/ML VIAL IV PUSH PRN ×2 (19:11→19:33)
[2017-05-08] MEDS: HEPARIN SODIUM - SQ 10,000 UNITS/ML VIAL SQ SCH (19:33)
[2017-05-09] VITALS (32 sets, daily range): BP systolic 89–119; BP diastolic 52–76; PULSE 87–113; RESP 7–17; TEMP 97.2–98.9; O2SAT 100
[2017-05-09] MEDS: LORazepam 2 MG/ML VIAL IV PUSH PRN (00:09)
[2017-05-09] MEDS: FREE WATER G-TUBE SCH ×4 (02:00→20:00)
[2017-05-09] MEDS: LACTULOSE SYRUP 20 GM/30 ML CUP PO SCH ×4 (02:25→20:49)
[2017-05-09] MEDS: RESP: ACETYLCYSTEINE 10% 30 ML NEB NEB SCH ×5 (04:38→20:37)
[2017-05-09] MEDS: RESP: ALBUTEROL 2.5 MG/IPRATROPIUM 0.5 MG NEB (SCH) NEB ×5 (04:38→20:37)
[2017-05-09] MEDS: ARTIFICIAL TEARS OPTH SOLN 15 ML BTL EACH EYE SCH ×3 (06:00→20:49)
[2017-05-09 06:21] LABS: AUTOMATED NEUTROPHIL # 5.3 TH/MM3 (1.8-7.7); BASOPHIL # 0.2 TH/MM3 (0-0.2); BASOPHIL % 2.6 % (0.0-2.0); EOSINOPHIL # 0.3 TH/MM3 (0-0.4); EOSINOPHIL % 4.7 % (0.0-4.0); HEMO FLAGS DIFF FINAL; LYMPH % 7.6 % (9.0-44.0); LYMPHOCYTE # 0.5 TH/MM3 (1.0-4.8); MEAN CELL VOLUME 108.9 FL (80.0-100.0); MEAN CORPUSCULAR HEMOGLOBIN 35.4 PG (27.0-34.0); MEAN CORPUSCULAR HGB CONC 32.5 % (32.0-36.0); MONO % 9.4 % (0.0-8.0); NEUT % 75.7 % (16.0-70.0); PLATELET COUNT 193 TH/MM3 (150-450); RED BLOOD COUNT 2.66 MIL/MM3 (4.50-5.90); RED CELL DISTRIBUTION WIDTH 24.2 % (11.6-17.2)
[2017-05-09] MEDS: fentaNYL DRIP 250 ML IV PRN (06:21)
[2017-05-09 06:36] LABS: BICARBONATE 29.4 MEQ/L (21.0-32.0); POTASSIUM 3.3 MEQ/L (3.5-5.1)
[2017-05-09] MEDS: HEPARIN SODIUM - SQ 10,000 UNITS/ML VIAL SQ SCH ×2 (08:40→20:49)
[2017-05-09] MEDS: CHLORHEXIDINE 0.12% (ORAL KIT) 15 ML CUP MT SCH ×2 (08:40→20:50)
[2017-05-09] MEDS: NICOTINE 14 MG/24 HR PATCH T-DERMAL SCH (08:40)
[2017-05-09] MEDS: PANTOPRAZOLE SODIUM 40 MG VIAL IV PUSH SCH (08:40)
[2017-05-09] MEDS: RIFAXIMIN 550 MG TAB PO SCH ×2 (08:41→20:49)
[2017-05-09] MEDS: GABAPENTIN 300 MG CAP PO SCH ×3 (08:41→17:40)
[2017-05-09] MEDS: MULTIVITAMIN TAB PO SCH (08:41)
[2017-05-09] MEDS: THIAMINE HCL 100 MG TAB PO SCH (08:41)
[2017-05-09] MEDS: POLYETHYLENE GLYCOL 17 GM PKG PO SCH (08:41)
[2017-05-09] MEDS: FOLIC ACID 1 MG TAB PO SCH (08:41)
[2017-05-09] MEDS: DOCUSATE SODIUM 50 MG/SENNA 8.6 MG TAB PO SCH ×2 (08:41→20:49)
[2017-05-09] MEDS: REMOVE OLD PATCH T-DERMAL SCH (08:41)
[2017-05-09] MEDS: POTASSIUM CHLOR 20 MEQ PREMIX 100 ML IV PRN ×2 (09:10→11:15)
[2017-05-09] MEDS: SODIUM CHLORIDE 0.9% FLUSH 10 ML FLUSH IVF SCH (09:10)
[2017-05-09] MEDS: DEXTROSE 5% IN WATE 1000ML INJ 1,000 ML IV SCH ×2 (09:45→23:14)
--- NOTE | 2017-05-09 09:54 | HHI.CCPN ---
Subjective Remarks/Hospital Course 61yM with h/o prior hepatic encephalopathy, etoh abuse, tobacco abuse, now admitted with weakness, fever, chills, worsening hypotension. called by hospitalist service overnight for clinical decline despite ivf resuscitation. Patient does complain of flank pain, but denies chest pain, abdominal pain. u/a +. started earlier on vanc/zosyn. has not voided. becoming worseningly agitated. unable to provide any additional information due to altered mental status. 04/28: Chart reviewed. Patient still quite agitated stating "I have to pee" patient has a Young catheter. Complaining of flank pain. Noted renal ultrasound negative. Currently on norepinephrine at 12 mg per minute. 04/29: Resting in bed in no acute distress. Currently on norepinephrine at 7 per minute for vasopressor support. Transfuse 2 units PRBC and 2 pack platelets overnight. Dilutional. Absolutely no signs of active bleeding. 04/30 Patient is sedated with Fentanyl and intubated. On Levophed 5 mics. Afebrile. For EGD today. 05/01 No events overnight. Sedated and intubated. On Levophed 4 mics. s/p EGD yesterday with shoed esophagitis, gastritis, food impaction in distal esophagus removed. Subjective 05/02: Afebrile. Off all vasopressors. NG tube advanced by IR yesterday. Feeding to be initiated today. Currently on fentanyl drip 05/03: Remains intubated sedated and not following commands remains on fentanyl infusion. Attempt CPAP trial if patient wakeful enough. Urine output minimal only 300 mL in 24 hours. Will give albumin and Bumex 05/04 Patient is sedated with Fentanyl and intubated. Afebrile. 05/05 Patient was self extubated last night. For possible decompressive colonoscopy today. Afebrile. 05/06 Patient is on 3L oxygen for decompressive colonoscopy today. On Precedex drip for agitation. CT abdomen/pelvis last night showed development of gaseous distention of the right and transverse colon with abrupt change in luminal dimension at the splenic flexure. There is a rectal tube in place and cannot differentiate between a focal obstruction/stricture versus decompression from the rectal tube. 05/07 Patient s/p decompressive colonoscopy last night KUB this morning showed decreased colonic distention. On 4L oxygen. 10/3 Patient was unresponsive on BIPAP this morning and was in resp distress he was subsequently intubated and placed on mechanical ventilation. CXR post intubation showed complete opacification of left hemithorax likely 2nd mucous plug 05/09 Patient is sedated with Fentanyl and intubated. Afebrile. Objective Vital Signs Date Time Temp Pulse Resp B/P (MAP) Pulse Ox O2 Delivery O2 Flow Rate FiO2 05/09/17 08:02 100 35 05/09/17 06:00 88 05/09/17 04:00 97.2 16 93/53 (66) 05/08/17 20:39 Ventilator 05/07/17 07:28 4.00 Intake and Output 05/09/17 05/09/17 05/10/17 08:00 16:00 00:00 Intake Total 438 ml Output Total 650 ml Balance -212 ml Result Diagram: 05/09/17 0540 05/09/17 0546 Other Results Laboratory Tests Test 05/08/17 13:30 05/09/17 05:40 05/09/17 05:46 Ammonia 50 MCMOL/L White Blood Count 7.0 TH/MM3 Red Blood Count 2.66 MIL/MM3 Hemoglobin 9.4 GM/DL Hematocrit 29.0 % Mean Corpuscular Volume 108.9 FL Mean Corpuscular Hemoglobin 35.4 PG Mean Corpuscular Hemoglobin Concent 32.5 % Red Cell Distribution Width 24.2 % Platelet Count 193 TH/MM3 Mean Platelet Volume 9.8 FL Neutrophils (%) (Auto) 75.7 % Lymphocytes (%) (Auto) 7.6 % Monocytes (%) (Auto) 9.4 % Eosinophils (%) (Auto) 4.7 % Basophils (%) (Auto) 2.6 % Neutrophils # (Auto) 5.3 TH/MM3 Lymphocytes # (Auto) 0.5 TH/MM3 Monocytes # (Auto) 0.7 TH/MM3 Eosinophils # (Auto) 0.3 TH/MM3 Basophils # (Auto) 0.2 TH/MM3 CBC Comment DIFF FINAL Differential Comment Blood Urea Nitrogen 15 MG/DL Creatinine 0.49 MG/DL Random Glucose 72 MG/DL Calcium Level 8.4 MG/DL Sodium Level 151 MEQ/L Potassium Level 3.3 MEQ/L Chloride Level 112 MEQ/L Carbon Dioxide Level 29.4 MEQ/L Anion Gap 10 MEQ/L Estimat Glomerular Filtration Rate 174 ML/MIN Imaging Last Impressions Chest X-Ray 05/08/17 0000 Signed Impressions: Service Date/Time: Monday, May 08, 2017 12:34 - CONCLUSION: 1. Better aeration left upper lobe. 2. Persistent volume loss and consolidation left midlung and left lower lobe. Keagan Shipman MD Chest Ultrasound 05/08/17 0000 Signed Impressions: Service Date/Time: Monday, May 08, 2017 13:01 - CONCLUSION: 1. There is a small left pleural effusion with insufficient volume for thoracentesis at this time. Ronaldo Howell MD Abdomen X-Ray 05/08/17 0000 Signed Impressions: Service Date/Time: Monday, May 08, 2017 07:20 - CONCLUSION: 1. Mild improvement in the bowel gas pattern with decreased gaseous distention of the colon. 2. The colonic tube remains in place. Johnathon White MD Abdomen/Pelvis CT 05/05/17 0600 Signed Impressions: Service Date/Time: Friday, May 05, 2017 18:38 - CONCLUSION: 1. Interval development of gaseous distention of the right and transverse colon with abrupt change in luminal dimension at the splenic flexure. There is a rectal tube in place and cannot differentiate between a focal obstruction/stricture versus decompression from the rectal tube. 2. Increasing consolidation/atelectasis in the left lower lobe and persistent right lower lobe consolidation and bilateral pleural effusions. 3. Stable mild free fluid in the pelvis. Rogerio Gunn MD Abdomen Fluoroscopy 05/01/17 0000 Signed Impressions: Service Date/Time: Monday, May 01, 2017 13:13 - CONCLUSION: Uncomplicated nasogastric tube placement as above. Zain Kumar MD Lower Extremity Ultrasound 04/28/17 0000 Signed Impressions: Service Date/Time: Friday, April 28, 2017 16:47 - CONCLUSION: Negative exam with no evidence of deep venous thrombosis. Johnathon White MD Chest CT 04/28/17 0000 Signed Impressions: Service Date/Time: Friday, April 28, 2017 11:03 - CONCLUSION: 1. Small bilateral pleural effusions with atelectasis in both lower lobes. There is also a focal area of groundglass opacity in the lingula that is nonspecific but could represent an infectious or inflammatory process. 2. Moderate size hiatal hernia with dilated and fluid-filled esophagus suggesting gastroesophageal reflux. The nasogastric tube distal tip is in the distal esophagus and should ideally be advanced into the stomach. Olu Triana MD Head CT 04/27/17 1017 Signed Impressions: Service Date/Time: Thursday, April 27, 2017 11:00 - CONCLUSION: 1. No acute intracranial abnormality. 2. Complete opacification left maxillary sinus. Keagan Shipman MD Renal Ultrasound 04/27/17 0000 Signed Impressions: Service Date/Time: Thursday, April 27, 2017 23:50 - CONCLUSION: Negative renal sonogram. Rogerio Gunn MD Objective Remarks GENERAL: 61 year old male intubated SKIN: Warm and dry. No rash HEAD: Normocephalic. EYES: No scleral icterus. Pupils are round 3 mm bilaterally and reactive No injection or drainage. NECK: Supple, trachea midline. No JVD or lymphadenopathy. Orally intubated CARDIOVASCULAR: RRR. S1, S2 no S4 without murmur RESPIRATORY: Breath sounds equal bilaterally. No accessory muscle use. GASTROINTESTINAL: Slightly distended. Hypoactive bowel sounds appreciated throughout. MUSCULOSKELETAL: No significant peripheral edema Neuro:Sedated, intubated Date of Insertion: Apr 28, 2017 Line: Central Venous Catheter Side: Right Location: Femoral A/P Assessment and Plan Neuro/Psych: Acute encephalopathy likely secondary to EtOH withdrawal/sepsis/hyperammonia Alcohol dependence Fentanyl infusion for sedation and vent synchrony. Daily sedation vacation. Monitor neuro status Thiamine, folate and multivitamin daily CT brain 04/27 revealed left maxillary sinusitis otherwise no acute intra- cranial findings Patient does have a history of EtOH withdrawal seizures. Seizure precautions CV: Severe sepsis Lactic acidosis- cleared Monitor HR and BP keep MAP>65mmHg Lactic acid 1.7 04/29 Resp: VDRF- reintubated 05/08 COPD Ongoing tobaccoism Continue with vent support keep sat >92% Bronchodilators, Mucomyst. ICU vent bundle s/p bronch with BAL 05/08: Thick secretions/mucous plug left main sten bronchus suctioned to clear CXR post bronch showed improved aeration left lung. Nicotine patch 14 mg daily. GI: Hyperammonia - Elevated AST Hypoalbuminemia - mild protein calorie malnutrition Hiatal hernia Sigmoid diverticulosis Hepatic steatosis Start tube feeds-Jevity 1.5 at 20ml/hr if ok with GI KUB 05/09: Mild improvements in bowel gas pattern. KUB 05/07: Decreased colonic distention s/p decompressive colonoscopy 05/06: Stool throughout the colon, Decompression colon tube was placed 05/05 CT abdomen/pelvis last night showed development of gaseous distention of the right and transverse colon with abrupt change in luminal dimension at the splenic flexure. There is a rectal tube in place and cannot differentiate between a focal obstruction/stricture versus decompression from the rectal tube. For decompressive colonoscopy today. Recta KUB abdomen 05/04 showed severe ileus, cecum dilated to 10 cm s/p EGD 04/30: Esophagitis, gastritis, food impaction in distal esophagus removed. Keep NPO Pantoprazole for GI prophylaxis Docusate sodium/senna 1 tablet twice a day for bowel regimen Currently on lactulose 30 cc every 6 hours and Xifaxan 550 mg by mouth twice a day for elevated ammonia. : Right kidney nonobstructing stone 3 mm Renal ultrasound revealed no hydronephrosis Increase Free water 250ml Q6. Monitor sodium level. Add D5W@75ml/hr Monitor renal function, I/O's, electrolytes replacement per protocol. Endo: Sliding-scale insulin to maintain euglycemia with Accu-Cheks every 6 hours with low regimen with Novulin R TSH: 3.14 04/28 Heme: Macrocytic anemia Thrombocytopenia...improving Likely secondary to EtOH/chronic liver disease possibility of underlying sepsis Patient was transfused 2 pack platelets and 2 PRBC 04/28. Follow CBC daily. Monitor trends. ID: Off abx(s/p Zosyn 04/27- 05/06)monitor for signs of infections ( Fever, WBC) Afebrile, Follow up on BAL results Pertinent cultures Blood cultures 2 -04/27 -no growth to date Urine culture - 04/27 -50 - 100,000 mixed gram-positive Sputum 04/28- normal resp andrea Urine pneumococcal and Legionella antigens negative MSK: PT evaluate and treat Access - Peripheral IV's Prophylaxis - GI - pantoprazole - DVT - SCD/ Heparin SQ , H/ H stable Level 3 Don Rod MD May 09, 2017 09:54
--- NOTE | 2017-05-09 16:07 | HHI.GIFU ---
Subjective Remarks Pt resting in bed on vent in NAD. Mother at bedside. Less distended and tympanitic today. (Renee Nieves) Objective Vitals I&O Vital Signs Date Time Temp Pulse Resp B/P (MAP) Pulse Ox O2 Delivery O2 Flow Rate FiO2 05/09/17 15:44 100 35 05/09/17 14:00 104 05/09/17 13:00 102 05/09/17 13:00 102 14 98/66 (77) 100 05/09/17 12:30 99 05/09/17 12:30 99 17 100/74 (83) 100 05/09/17 12:00 99 15 103/60 (74) 100 05/09/17 12:00 35 05/09/17 12:00 99 05/09/17 11:48 100 35 05/09/17 11:30 99 05/09/17 11:00 99 05/09/17 10:30 99 05/09/17 10:30 99 14 107/70 (82) 100 05/09/17 10:22 98 16 100/63 (75) 100 05/09/17 10:22 98 05/09/17 10:00 99 13 99/65 (76) 100 05/09/17 10:00 99 05/09/17 09:45 97 17 100/74 (83) 100 05/09/17 09:45 97 05/09/17 09:30 100 16 101/73 (82) 100 05/09/17 09:30 100 05/09/17 09:15 100 9 102/76 (85) 100 05/09/17 09:15 100 05/09/17 09:01 99 05/09/17 09:01 99 16 104/67 (79) 100 05/09/17 08:45 98 05/09/17 08:45 98 15 89/54 (66) 100 05/09/17 08:30 94 13 109/52 (71) 100 05/09/17 08:30 94 05/09/17 08:15 94 05/09/17 08:15 94 7 109/52 (71) 100 05/09/17 08:02 100 35 05/09/17 08:00 90 05/09/17 08:00 94 05/09/17 08:00 35 05/09/17 08:00 94 11 98/60 (73) 100 05/09/17 06:00 88 05/09/17 04:39 100 35 05/09/17 04:00 40 05/09/17 04:00 97.2 87 16 93/53 (66) 100 05/09/17 04:00 87 05/09/17 02:00 88 05/09/17 00:01 97.8 99 16 119/66 (83) 100 05/09/17 00:00 109 05/09/17 00:00 40 05/08/17 23:38 100 40 05/08/17 22:00 99 05/08/17 20:43 100 40 05/08/17 20:39 100 Ventilator 40 05/08/17 20:00 40 05/08/17 20:00 117 05/08/17 20:00 97.2 117 21 88/64 (72) 100 05/08/17 18:18 146 05/08/17 18:15 161 05/08/17 18:13 178 05/08/17 18:09 170 05/08/17 18:07 118 05/08/17 18:04 172 05/08/17 18:00 178 05/08/17 16:46 171 20 141/84 (103) 100 05/08/17 16:42 101 22 135/74 (94) 100 05/08/17 16:39 114 23 111/72 (85) 100 05/08/17 16:37 104 20 105/74 (84) 100 05/08/17 16:33 140 19 111/71 (84) 100 05/08/17 16:30 138 23 113/62 (79) 100 05/08/17 16:28 105 23 136/69 (91) 100 05/08/17 16:24 98 20 124/61 (82) 100 05/08/17 16:21 128 17 112/65 (81) 99 05/08/17 16:18 108 19 128/69 (88) 100 05/08/17 16:15 153 22 126/76 (93) 100 05/08/17 16:12 121 17 123/69 (87) 100 05/08/17 16:09 99 18 120/58 (78) 100 05/08/17 16:07 95 21 125/63 (83) 100 05/08/17 16:07 95 I/O 05/08/17 05/08/17 05/08/17 05/09/17 05/09/17 05/09/17 07:00 15:00 23:00 07:00 15:00 23:00 Intake Total 60 ml 240 ml 438 ml 100 ml Output Total 325 ml 1500 ml 650 ml Balance -325 ml 60 ml -1260 ml -212 ml 100 ml IV Total 60 ml 138 ml 100 ml Other 240 ml 300 ml Output Urine Total 275 ml 1050 ml 250 ml Stool Total 50 ml 450 ml 400 ml Laboratory Laboratory Tests Test 05/09/17 05:40 05/09/17 05:46 05/09/17 12:22 White Blood Count 7.0 Red Blood Count 2.66 Hemoglobin 9.4 Hematocrit 29.0 Mean Corpuscular Volume 108.9 Mean Corpuscular Hemoglobin 35.4 Mean Corpuscular Hemoglobin Concent 32.5 Red Cell Distribution Width 24.2 Platelet Count 193 Mean Platelet Volume 9.8 Neutrophils (%) (Auto) 75.7 Lymphocytes (%) (Auto) 7.6 Monocytes (%) (Auto) 9.4 Eosinophils (%) (Auto) 4.7 Basophils (%) (Auto) 2.6 Neutrophils # (Auto) 5.3 Lymphocytes # (Auto) 0.5 Monocytes # (Auto) 0.7 Eosinophils # (Auto) 0.3 Basophils # (Auto) 0.2 CBC Comment DIFF FINAL Differential Comment Blood Urea Nitrogen 15 Creatinine 0.49 Random Glucose 72 Calcium Level 8.4 Sodium Level 151 Potassium Level 3.3 Chloride Level 112 Carbon Dioxide Level 29.4 Anion Gap 10 Estimat Glomerular Filtration Rate 174 Ammonia 52 Date/Time Source Procedure Growth Status 04/27/17 14:15 Blood Peripheral Aerobic Blood Culture - Final NO GROWTH IN 5 DAYS Complete 04/27/17 14:15 Blood Peripheral Anaerobic Blood Culture - Final NO GROWTH IN 5 DAYS Complete 05/08/17 11:00 Bronchial Washings Bronchial Fungal Smear - Final NO FUNGAL ELEMENTS SEEN. Resulted 05/08/17 11:00 Bronchial Washings Bronchial Fungal Culture Pending Resulted 05/06/17 07:50 Urine Catheterized Urine Urine Culture - Final NO GROWTH IN 48 HOURS. Complete Imaging Last Impressions Chest X-Ray 05/08/17 0000 Signed Impressions: Service Date/Time: Monday, May 08, 2017 12:34 - CONCLUSION: 1. Better aeration left upper lobe. 2. Persistent volume loss and consolidation left midlung and left lower lobe. Keagan Shipman MD Chest Ultrasound 05/08/17 0000 Signed Impressions: Service Date/Time: Monday, May 08, 2017 13:01 - CONCLUSION: 1. There is a small left pleural effusion with insufficient volume for thoracentesis at this time. Ronaldo Howell MD Abdomen X-Ray 05/08/17 Signed Impressions: Service Date/Time: Monday, May 08, 2017 07:20 - CONCLUSION: 1. Mild improvement in the bowel gas pattern with decreased gaseous distention of the colon. 2. The colonic tube remains in place. Johnathon White MD Abdomen/Pelvis CT 05/05/17 0600 Signed Impressions: Service Date/Time: Friday, May 05, 2017 18:38 - CONCLUSION: 1. Interval development of gaseous distention of the right and transverse colon with abrupt change in luminal dimension at the splenic flexure. There is a rectal tube in place and cannot differentiate between a focal obstruction/stricture versus decompression from the rectal tube. 2. Increasing consolidation/atelectasis in the left lower lobe and persistent right lower lobe consolidation and bilateral pleural effusions. 3. Stable mild free fluid in the pelvis. Rogerio Gunn MD Abdomen Fluoroscopy 05/01/17 Signed Impressions: Service Date/Time: Monday, May 01, 2017 13:13 - CONCLUSION: Uncomplicated nasogastric tube placement as above. Zain Kumar MD Lower Extremity Ultrasound 04/28/17 0000 Signed Impressions: Service Date/Time: Friday, April 28, 2017 16:47 - CONCLUSION: Negative exam with no evidence of deep venous thrombosis. Johnathon White MD Chest CT 04/28/17 0000 Signed Impressions: Service Date/Time: Friday, April 28, 2017 11:03 - CONCLUSION: 1. Small bilateral pleural effusions with atelectasis in both lower lobes. There is also a focal area of groundglass opacity in the lingula that is nonspecific but could represent an infectious or inflammatory process. 2. Moderate size hiatal hernia with dilated and fluid-filled esophagus suggesting gastroesophageal reflux. The nasogastric tube distal tip is in the distal esophagus and should ideally be advanced into the stomach. Olu Triana MD Head CT 04/27/17 1017 Signed Impressions: Service Date/Time: Thursday, April 27, 2017 11:00 - CONCLUSION: 1. No acute intracranial abnormality. 2. Complete opacification left maxillary sinus. Keagan Shipman MD Renal Ultrasound 04/27/17 0000 Signed Impressions: Service Date/Time: Thursday, April 27, 2017 23:50 - CONCLUSION: Negative renal sonogram. Rogerio Gunn MD Physical Exam HEENT: Normocephalic CHEST: Resp even, mildly labored. Course breath sounds. CARDIAC: RRR ABDOMEN: Soft, mildly distended, less tympanitic today. Hypoactive bowel sounds. EXTREMITIES: Mild peripheral edema. COMPENSATION AND BENEFITS ANALYST: on vent (Renee Nieves JUDICIAL REGISTRAR) Assessment and Plan Plan ASSESSMENT - Colonic ileus. CT Scan abdomen and pelvis with IV contrast (05/05/17)----> Interval development of gaseous distention of the right and transverse colon with abrupt change in luminal dimension at the splenic flexure. There is a rectal tube in place and cannot differentiate between a focal obstruction/stricture versus decompression from the rectal tube. Increasing consolidation/atelectasis in the left lower lobe and persistent right lower lobe consolidation and bilateral pleural effusion. Stable mild free fluid in the pelvis. S/P 2 SSE. S/P Relistor S/P Decompressive colonoscopy (05/06/17)----> stool throughout the colon, I did not see any masses, visualization was compromised with stool, decompression colon tube was placed. Miralax, Lactulose. Rpt. KUB (05/07/17)--> - Anemia, macrocytic. S/P EGD (04/30/17)---> Martinez esophagus, Esophagitis, Gastritis, Foreign body in the distal esophagus. Pathology reactive gastropathy. S/P 2 units RBC, 2 units Platelets. Vitamin B12 1298. HH 8.8/27.3. PPI - Martinez's Esophagus, Esophagitis, Gastritis. Pathology reactive gastropathy. PPI - Foreign body in distal esophagus, s/p EGD. - Elevated ammonia, acute encephalopathy. Ammonia 45. Lactulose, Xifaxan. - Elevated bilirubin. CT as above. History of ETOH abuse, drinks 1/5 of vodka daily. Hypoalbuminemia with albumin 2.1. Mild coagulopathy. Suspect liver cirrhosis, likely secondary to alcohol, fatty liver disease. Check ammonia level. - Thrombocytopenia. S/P 2 platelet transfusion. - Sepsis, unclear source. Urine negative for legionella, streptococcus, bcx neg , sputum cx with light growth normal respiratory andrea. CT reveals possible pneumonia. - Respiratory failure, COPD. Pt extubated on Sunday. Mildly labored breathing. - Encephalopathy. Obtunded, but nurse reports she recently medicated with ativan. Will check ammonia level. 05/09/17 KUB 05/08 showing mild improvement gaseous distention. pt less distended and tympanitic today, per RN less gastric output. ok to restart TF, remove rectal tube HH relatively stable PLAN - okay to restart TF - remove rectal tube - continue bowel regimen - Cont. Xifaxan - Cont. PPI - Supportive care - Further recommendations to follow based on results of above. - Patient seen and examined by Dr. Green and myself and this note is written on her behalf. (Renee Nieves) Physician Comments seen, examined agree with above (Roxanne Green MD) Renee Nieves May 09, 2017 16:07 Roxanne Green MD May 09, 2017 19:05
[2017-05-10] VITALS (21 sets, daily range): BP systolic 92–110; BP diastolic 60–76; PULSE 105–114; RESP 15–22; TEMP 98.1–98.9; O2SAT 100
[2017-05-10] MEDS: POTASSIUM CHLOR 20 MEQ PREMIX 100 ML IV PRN ×2 (00:26→01:45)
[2017-05-10] MEDS: RESP: ALBUTEROL 2.5 MG/IPRATROPIUM 0.5 MG NEB (SCH) NEB ×7 (00:42→23:45)
[2017-05-10] MEDS: RESP: ACETYLCYSTEINE 10% 30 ML NEB NEB SCH ×7 (00:42→23:45)
[2017-05-10] MEDS: FREE WATER G-TUBE SCH ×4 (01:45→20:17)
[2017-05-10] MEDS: LACTULOSE SYRUP 20 GM/30 ML CUP PO SCH ×4 (01:45→20:17)
[2017-05-10] MEDS: ARTIFICIAL TEARS OPTH SOLN 15 ML BTL EACH EYE SCH ×3 (04:48→20:17)
[2017-05-10 07:00] LABS: AUTOMATED NEUTROPHIL # 4.9 TH/MM3 (1.8-7.7); BASOPHIL # 0.2 TH/MM3 (0-0.2); BASOPHIL % 3.1 % (0.0-2.0); EOSINOPHIL # 0.3 TH/MM3 (0-0.4); EOSINOPHIL % 3.7 % (0.0-4.0); HEMATOCRIT 31.2 % (39.0-51.0); HEMO FLAGS DIFF FINAL; LYMPH % 9.1 % (9.0-44.0); LYMPHOCYTE # 0.6 TH/MM3 (1.0-4.8); MEAN CELL VOLUME 108.2 FL (80.0-100.0); MEAN CORPUSCULAR HEMOGLOBIN 35.6 PG (27.0-34.0); MEAN CORPUSCULAR HGB CONC 32.9 % (32.0-36.0); MONO % 12.8 % (0.0-8.0); NEUT % 71.3 % (16.0-70.0); PLATELET COUNT 213 TH/MM3 (150-450); RED BLOOD COUNT 2.88 MIL/MM3 (4.50-5.90); RED CELL DISTRIBUTION WIDTH 24.7 % (11.6-17.2); WHITE BLOOD COUNT 6.8 TH/MM3 (4.0-11.0)
[2017-05-10 07:14] LABS: BICARBONATE 30.8 MEQ/L (21.0-32.0); MAGNESIUM 1.5 MG/DL (1.5-2.5); POTASSIUM 3.7 MEQ/L (3.5-5.1)
[2017-05-10] MEDS: PANTOPRAZOLE SODIUM 40 MG VIAL IV PUSH SCH (08:33)
[2017-05-10] MEDS: HEPARIN SODIUM - SQ 10,000 UNITS/ML VIAL SQ SCH ×2 (08:33→20:17)
[2017-05-10] MEDS: GABAPENTIN 300 MG CAP PO SCH ×3 (08:34→17:09)
[2017-05-10] MEDS: RIFAXIMIN 550 MG TAB PO SCH ×2 (08:34→20:17)
[2017-05-10] MEDS: POLYETHYLENE GLYCOL 17 GM PKG PO SCH (08:34)
[2017-05-10] MEDS: THIAMINE HCL 100 MG TAB PO SCH (08:35)
[2017-05-10] MEDS: MULTIVITAMIN TAB PO SCH (08:35)
[2017-05-10] MEDS: FOLIC ACID 1 MG TAB PO SCH (08:35)
[2017-05-10] MEDS: DOCUSATE SODIUM 50 MG/SENNA 8.6 MG TAB PO SCH ×2 (08:36→20:16)
[2017-05-10] MEDS: CHLORHEXIDINE 0.12% (ORAL KIT) 15 ML CUP MT SCH ×2 (08:36→20:17)
[2017-05-10] MEDS: REMOVE OLD PATCH T-DERMAL SCH (08:38)
[2017-05-10] MEDS: NICOTINE 14 MG/24 HR PATCH T-DERMAL SCH (08:38)
[2017-05-10] MEDS: SODIUM CHLORIDE 0.9% FLUSH 10 ML FLUSH IVF SCH (08:39)
--- NOTE | 2017-05-10 08:51 | HHI.CCPN ---
Subjective Remarks/Hospital Course 61yM with h/o prior hepatic encephalopathy, etoh abuse, tobacco abuse, now admitted with weakness, fever, chills, worsening hypotension. called by hospitalist service overnight for clinical decline despite ivf resuscitation. Patient does complain of flank pain, but denies chest pain, abdominal pain. u/a +. started earlier on vanc/zosyn. has not voided. becoming worseningly agitated. unable to provide any additional information due to altered mental status. 04/28: Chart reviewed. Patient still quite agitated stating "I have to pee" patient has a Young catheter. Complaining of flank pain. Noted renal ultrasound negative. Currently on norepinephrine at 12 mg per minute. 04/29: Resting in bed in no acute distress. Currently on norepinephrine at 7 per minute for vasopressor support. Transfuse 2 units PRBC and 2 pack platelets overnight. Dilutional. Absolutely no signs of active bleeding. 04/30 Patient is sedated with Fentanyl and intubated. On Levophed 5 mics. Afebrile. For EGD today. 05/01 No events overnight. Sedated and intubated. On Levophed 4 mics. s/p EGD yesterday with shoed esophagitis, gastritis, food impaction in distal esophagus removed. Subjective 05/02: Afebrile. Off all vasopressors. NG tube advanced by IR yesterday. Feeding to be initiated today. Currently on fentanyl drip 05/03: Remains intubated sedated and not following commands remains on fentanyl infusion. Attempt CPAP trial if patient wakeful enough. Urine output minimal only 300 mL in 24 hours. Will give albumin and Bumex 05/04 Patient is sedated with Fentanyl and intubated. Afebrile. 05/05 Patient was self extubated last night. For possible decompressive colonoscopy today. Afebrile. 05/06 Patient is on 3L oxygen for decompressive colonoscopy today. On Precedex drip for agitation. CT abdomen/pelvis last night showed development of gaseous distention of the right and transverse colon with abrupt change in luminal dimension at the splenic flexure. There is a rectal tube in place and cannot differentiate between a focal obstruction/stricture versus decompression from the rectal tube. 05/07 Patient s/p decompressive colonoscopy last night KUB this morning showed decreased colonic distention. On 4L oxygen. 10/3 Patient was unresponsive on BIPAP this morning and was in resp distress he was subsequently intubated and placed on mechanical ventilation. CXR post intubation showed complete opacification of left hemithorax likely 2nd mucous plug 05/09 Patient is sedated with Fentanyl and intubated. Afebrile. 05/10 Patient remains sedated and intubated. Afebrile. Tolerating tube feeds Objective Vital Signs Date Time Temp Pulse Resp B/P (MAP) Pulse Ox O2 Delivery O2 Flow Rate FiO2 05/10/17 07:42 100 35 05/10/17 06:00 108 05/10/17 04:00 98.2 22 110/76 (87) 05/08/17 20:39 Ventilator 05/07/17 07:28 4.00 Intake and Output 05/10/17 05/10/17 05/10/17 07:59 15:59 23:59 Intake Total 636 ml Output Total 800 ml Balance -164 ml Result Diagram: 05/10/17 0634 05/10/17 0634 Other Results Laboratory Tests Test 05/09/17 12:22 05/09/17 23:10 05/10/17 06:34 Ammonia 52 MCMOL/L Potassium Level 3.5 MEQ/L 3.7 MEQ/L White Blood Count 6.8 TH/MM3 Red Blood Count 2.88 MIL/MM3 Hemoglobin 10.3 GM/DL Hematocrit 31.2 % Mean Corpuscular Volume 108.2 FL Mean Corpuscular Hemoglobin 35.6 PG Mean Corpuscular Hemoglobin Concent 32.9 % Red Cell Distribution Width 24.7 % Platelet Count 213 TH/MM3 Mean Platelet Volume 10.3 FL Neutrophils (%) (Auto) 71.3 % Lymphocytes (%) (Auto) 9.1 % Monocytes (%) (Auto) 12.8 % Eosinophils (%) (Auto) 3.7 % Basophils (%) (Auto) 3.1 % Neutrophils # (Auto) 4.9 TH/MM3 Lymphocytes # (Auto) 0.6 TH/MM3 Monocytes # (Auto) 0.9 TH/MM3 Eosinophils # (Auto) 0.3 TH/MM3 Basophils # (Auto) 0.2 TH/MM3 CBC Comment DIFF FINAL Differential Comment Blood Urea Nitrogen 16 MG/DL Creatinine 0.65 MG/DL Random Glucose 146 MG/DL Calcium Level 8.2 MG/DL Phosphorus Level 2.0 MG/DL Magnesium Level 1.5 MG/DL Sodium Level 148 MEQ/L Chloride Level 111 MEQ/L Carbon Dioxide Level 30.8 MEQ/L Anion Gap 6 MEQ/L Estimat Glomerular Filtration Rate 125 ML/MIN Imaging Last Impressions Chest X-Ray 05/08/17 0000 Signed Impressions: Service Date/Time: Monday, May 08, 2017 12:34 - CONCLUSION: 1. Better aeration left upper lobe. 2. Persistent volume loss and consolidation left midlung and left lower lobe. Keagan Shipman MD Chest Ultrasound 05/08/17 0000 Signed Impressions: Service Date/Time: Monday, May 08, 2017 13:01 - CONCLUSION: 1. There is a small left pleural effusion with insufficient volume for thoracentesis at this time. Ronaldo Howell MD Abdomen X-Ray 05/08/17 0000 Signed Impressions: Service Date/Time: Monday, May 08, 2017 07:20 - CONCLUSION: 1. Mild improvement in the bowel gas pattern with decreased gaseous distention of the colon. 2. The colonic tube remains in place. Johnathon White MD Abdomen/Pelvis CT 05/05/17 0600 Signed Impressions: Service Date/Time: Friday, May 05, 2017 18:38 - CONCLUSION: 1. Interval development of gaseous distention of the right and transverse colon with abrupt change in luminal dimension at the splenic flexure. There is a rectal tube in place and cannot differentiate between a focal obstruction/stricture versus decompression from the rectal tube. 2. Increasing consolidation/atelectasis in the left lower lobe and persistent right lower lobe consolidation and bilateral pleural effusions. 3. Stable mild free fluid in the pelvis. Rogerio Gunn MD Abdomen Fluoroscopy 05/01/17 0000 Signed Impressions: Service Date/Time: Monday, May 01, 2017 13:13 - CONCLUSION: Uncomplicated nasogastric tube placement as above. Zain Kumar MD Lower Extremity Ultrasound 04/28/17 0000 Signed Impressions: Service Date/Time: Friday, April 28, 2017 16:47 - CONCLUSION: Negative exam with no evidence of deep venous thrombosis. Johnathon White MD Chest CT 04/28/17 0000 Signed Impressions: Service Date/Time: Friday, April 28, 2017 11:03 - CONCLUSION: 1. Small bilateral pleural effusions with atelectasis in both lower lobes. There is also a focal area of groundglass opacity in the lingula that is nonspecific but could represent an infectious or inflammatory process. 2. Moderate size hiatal hernia with dilated and fluid-filled esophagus suggesting gastroesophageal reflux. The nasogastric tube distal tip is in the distal esophagus and should ideally be advanced into the stomach. Olu Triana MD Head CT 04/27/17 1017 Signed Impressions: Service Date/Time: Thursday, April 27, 2017 11:00 - CONCLUSION: 1. No acute intracranial abnormality. 2. Complete opacification left maxillary sinus. Keagan Shipman MD Renal Ultrasound 04/27/17 0000 Signed Impressions: Service Date/Time: Thursday, April 27, 2017 23:50 - CONCLUSION: Negative renal sonogram. Rogerio Gunn MD Objective Remarks GENERAL: 61 year old male intubated SKIN: Warm and dry. No rash HEAD: Normocephalic. EYES: No scleral icterus. Pupils are round 3 mm bilaterally and reactive No injection or drainage. NECK: Supple, trachea midline. No JVD or lymphadenopathy. Orally intubated CARDIOVASCULAR: RRR. S1, S2 no S4 without murmur RESPIRATORY: Breath sounds equal bilaterally. No accessory muscle use. GASTROINTESTINAL: Slightly distended. Hypoactive bowel sounds appreciated throughout. MUSCULOSKELETAL: No significant peripheral edema Neuro:Sedated, intubated Date of Insertion: Apr 28, 2017 Line: Central Venous Catheter Side: Right Location: Femoral A/P Assessment and Plan Neuro/Psych: Acute encephalopathy likely secondary to EtOH withdrawal/sepsis/hyperammonia Alcohol dependence Fentanyl infusion for sedation and vent synchrony. Daily sedation vacation. Monitor neuro status Thiamine, folate and multivitamin daily CT brain 04/27 revealed left maxillary sinusitis otherwise no acute intra- cranial findings Patient does have a history of EtOH withdrawal seizures. Seizure precautions CV: Severe sepsis Lactic acidosis- cleared Monitor HR and BP keep MAP>65mmHg Lactic acid 1.7 04/29 Resp: VDRF- reintubated 05/08 COPD Ongoing tobaccoism Continue with vent support keep sat >92% Check ABG Bronchodilators, Mucomyst. ICU vent bundle SBT as liudmila. s/p bronch with BAL 05/08: Thick secretions/mucous plug left main sten bronchus suctioned to clear CXR post bronch showed improved aeration left lung. Nicotine patch 14 mg daily. GI: Hyperammonia - Elevated AST Hypoalbuminemia - mild protein calorie malnutrition Hiatal hernia Sigmoid diverticulosis Hepatic steatosis On tube feeds-Jevity 1.5 at 45ml/hr On lactulose 30 cc every 6 hours and Xifaxan 550 mg by mouth twice a day for elevated ammonia. KUB /4: Mild improvements in bowel gas pattern. KUB /2: Decreased colonic distention s/p decompressive colonoscopy 05/06: Stool throughout the colon, Decompression colon tube was placed 05/05 CT abdomen/pelvis: showed development of gaseous distention of the right and transverse colon with abrupt change in luminal dimension at the splenic flexure. There is a rectal tube in place and cannot differentiate between a focal obstruction/stricture versus decompression from the rectal tube. For decompressive colonoscopy today. Recta KUB abdomen 05/04 showed severe ileus, cecum dilated to 10 cm s/p EGD 04/30: Esophagitis, gastritis, food impaction in distal esophagus removed. Pantoprazole for GI prophylaxis Docusate sodium/senna 1 tablet twice a day for bowel regimen : Right kidney nonobstructing stone 3 mm Renal ultrasound revealed no hydronephrosis Free water 250ml Q8.. Monitor sodium level. on D5W@75ml/hr Monitor renal function, I/O's, electrolytes replacement per protocol. Will need phos replaceemnt today. Endo: Sliding-scale insulin to maintain euglycemia with Accu-Cheks every 6 hours with low regimen with Novulin R TSH: 3.14 04/28 Heme: Macrocytic anemia Thrombocytopenia...improving Likely secondary to EtOH/chronic liver disease possibility of underlying sepsis Patient was transfused 2 pack platelets and 2 PRBC 04/28. Follow CBC daily. Monitor trends. ID: Off abx(s/p Zosyn 04/27- 05/06)monitor for signs of infections ( Fever, WBC) Afebrile, Follow up on BAL results- NGTD Pertinent cultures Blood cultures 2 -04/27 -no growth to date Urine culture - 04/27 -50 - 100,000 mixed gram-positive Sputum 04/28- normal resp andrea Urine pneumococcal and Legionella antigens negative MSK: PT evaluate and treat Access - Peripheral IV's Prophylaxis - GI - pantoprazole - DVT - SCD/ Heparin SQ , Level 3 Don Rod MD May 10, 2017 08:51
[2017-05-10 10:00] LABS: BLOOD GAS BASE EXCESS 5.5 mmol/L (-2-2); BLOOD GAS CARBOXYHEMOGLOBIN 1.4 % (0-4); BLOOD GAS HCO3 30 mmol/L (22-26); BLOOD GAS O2 HGB SATURATION 95 % (90-100); BLOOD GAS OXYGEN CONTENT 12.9 Vol % (12.0-20.0); BLOOD GAS PCO2 48 mmHg (38-42); BLOOD GAS PO2 101 mmHg (61-120); BLOOD GAS TOTAL HGB 9.5 G/DL (12.0-16.0); CRITICAL VALUE NO; DRAW SITE LT RADIAL; FIO2 35 %; OXYGEN DEVICE VENTILATOR; TEMP CORR TO 98.6; VENT SETTINGS CPAP 5 IPAP15
[2017-05-10 10:01] LABS: NUMBER OF ARTERIAL PUNCTURES 1; STAT YES; ULNAR PULSE Y
--- NOTE | 2017-05-10 10:12 | HHI.GIFU ---
Subjective Remarks Resting in bed. Gloria TF @ 45ml/hr. Light brown liquid stool in bag. (Renee Nieves) Objective Vitals I&O Vital Signs Date Time Temp Pulse Resp B/P (MAP) Pulse Ox O2 Delivery O2 Flow Rate FiO2 05/10/17 09:19 35 05/10/17 09:19 35 05/10/17 07:42 100 35 05/10/17 06:00 108 05/10/17 04:54 100 35 05/10/17 04:00 98.2 114 22 110/76 (87) 100 05/10/17 04:00 114 05/10/17 04:00 35 05/10/17 02:00 109 05/10/17 00:42 100 35 05/10/17 00:00 108 05/10/17 00:00 35 05/10/17 00:00 98.1 108 16 92/60 (71) 100 05/09/17 22:00 110 05/09/17 20:38 100 35 05/09/17 20:00 98.9 113 16 111/70 (84) 100 05/09/17 20:00 113 05/09/17 20:00 35 05/09/17 18:00 110 05/09/17 16:31 111 05/09/17 16:00 108 05/09/17 16:00 108 15 100/71 (81) 100 05/09/17 16:00 35 05/09/17 15:44 100 35 05/09/17 14:00 104 05/09/17 13:00 102 05/09/17 13:00 102 14 98/66 (77) 100 05/09/17 12:30 99 05/09/17 12:30 99 17 100/74 (83) 100 05/09/17 12:00 99 15 103/60 (74) 100 05/09/17 12:00 35 05/09/17 12:00 99 05/09/17 11:48 100 35 05/09/17 11:30 99 05/09/17 11:00 99 05/09/17 10:30 99 05/09/17 10:30 99 14 107/70 (82) 100 05/09/17 10:22 98 16 100/63 (75) 100 05/09/17 10:22 98 I/O 05/09/17 05/09/17 05/09/17 05/10/17 05/10/17 05/10/17 07:00 15:00 23:00 07:00 15:00 23:00 Intake Total 438 ml 100 ml 471 ml 1636 ml Output Total 650 ml 600 ml 800 ml Balance -212 ml 100 ml -129 ml 836 ml IV Total 138 ml 100 ml 1200 ml Tube Feeding 71 ml 436 ml Other 300 ml 400 ml Output Urine Total 250 ml 200 ml 200 ml Stool Total 400 ml 400 ml 600 ml # Bowel Movements 1 Laboratory Laboratory Tests Test 05/09/17 12:22 05/09/17 23:10 05/10/17 06:34 05/10/17 09:42 Ammonia 52 Potassium Level 3.5 3.7 White Blood Count 6.8 Red Blood Count 2.88 Hemoglobin 10.3 Hematocrit 31.2 Mean Corpuscular Volume 108.2 Mean Corpuscular Hemoglobin 35.6 Mean Corpuscular Hemoglobin Concent 32.9 Red Cell Distribution Width 24.7 Platelet Count 213 Mean Platelet Volume 10.3 Neutrophils (%) (Auto) 71.3 Lymphocytes (%) (Auto) 9.1 Monocytes (%) (Auto) 12.8 Eosinophils (%) (Auto) 3.7 Basophils (%) (Auto) 3.1 Neutrophils # (Auto) 4.9 Lymphocytes # (Auto) 0.6 Monocytes # (Auto) 0.9 Eosinophils # (Auto) 0.3 Basophils # (Auto) 0.2 CBC Comment DIFF FINAL Differential Comment Blood Urea Nitrogen 16 Creatinine 0.65 Random Glucose 146 Calcium Level 8.2 Phosphorus Level 2.0 Magnesium Level 1.5 Sodium Level 148 Chloride Level 111 Carbon Dioxide Level 30.8 Anion Gap 6 Estimat Glomerular Filtration Rate 125 Blood Gas Puncture Site LT RADIAL Blood Gas Patient Temperature 98.6 Blood Gas HCO3 30 Blood Gas Base Excess 5.5 Blood Gas Oxygen Saturation 95 Arterial Blood pH 7.42 Arterial Blood Partial Pressure CO2 48 Arterial Blood Partial Pressure O2 101 Arterial Blood Oxygen Content 12.9 Arterial Blood Carboxyhemoglobin 1.4 Arterial Blood Methemoglobin 1.0 Blood Gas Hemoglobin 9.5 Oxygen Delivery Device VENTILATOR Blood Gas Ventilator Setting CPAP 5 IPAP15 Blood Gas Inspired Oxygen 35 Date/Time Source Procedure Growth Status 04/27/17 14:15 Blood Peripheral Aerobic Blood Culture - Final NO GROWTH IN 5 DAYS Complete 04/27/17 14:15 Blood Peripheral Anaerobic Blood Culture - Final NO GROWTH IN 5 DAYS Complete 05/08/17 11:00 Bronchial Washings Bronchial Fungal Smear - Final NO FUNGAL ELEMENTS SEEN. Resulted 05/08/17 11:00 Bronchial Washings Bronchial Fungal Culture Pending Resulted 05/06/17 07:50 Urine Catheterized Urine Urine Culture - Final NO GROWTH IN 48 HOURS. Complete Imaging Last Impressions Chest X-Ray 05/08/17 0000 Signed Impressions: Service Date/Time: Monday, May 08, 2017 12:34 - CONCLUSION: 1. Better aeration left upper lobe. 2. Persistent volume loss and consolidation left midlung and left lower lobe. Keagan Shipman MD Chest Ultrasound 05/08/17 0000 Signed Impressions: Service Date/Time: Monday, May 08, 2017 13:01 - CONCLUSION: 1. There is a small left pleural effusion with insufficient volume for thoracentesis at this time. Ronaldo Howell MD Abdomen X-Ray 05/08/17 0000 Signed Impressions: Service Date/Time: Monday, May 08, 2017 07:20 - CONCLUSION: 1. Mild improvement in the bowel gas pattern with decreased gaseous distention of the colon. 2. The colonic tube remains in place. Johnathno White MD Abdomen/Pelvis CT 05/05/17 0600 Signed Impressions: Service Date/Time: Friday, May 05, 2017 18:38 - CONCLUSION: 1. Interval development of gaseous distention of the right and transverse colon with abrupt change in luminal dimension at the splenic flexure. There is a rectal tube in place and cannot differentiate between a focal obstruction/stricture versus decompression from the rectal tube. 2. Increasing consolidation/atelectasis in the left lower lobe and persistent right lower lobe consolidation and bilateral pleural effusions. 3. Stable mild free fluid in the pelvis. Rogerio Gunn MD Abdomen Fluoroscopy 05/01/17 0000 Signed Impressions: Service Date/Time: Monday, May 01, 2017 13:13 - CONCLUSION: Uncomplicated nasogastric tube placement as above. Zain Kumar MD Lower Extremity Ultrasound 04/28/17 0000 Signed Impressions: Service Date/Time: Friday, April 28, 2017 16:47 - CONCLUSION: Negative exam with no evidence of deep venous thrombosis. Johnathon White MD Chest CT 04/28/17 0000 Signed Impressions: Service Date/Time: Friday, April 28, 2017 11:03 - CONCLUSION: 1. Small bilateral pleural effusions with atelectasis in both lower lobes. There is also a focal area of groundglass opacity in the lingula that is nonspecific but could represent an infectious or inflammatory process. 2. Moderate size hiatal hernia with dilated and fluid-filled esophagus suggesting gastroesophageal reflux. The nasogastric tube distal tip is in the distal esophagus and should ideally be advanced into the stomach. Olu Triana MD Head CT 04/27/17 1017 Signed Impressions: Service Date/Time: Thursday, April 27, 2017 11:00 - CONCLUSION: 1. No acute intracranial abnormality. 2. Complete opacification left maxillary sinus. Keagan Shipman MD Renal Ultrasound 04/27/17 0000 Signed Impressions: Service Date/Time: Thursday, April 27, 2017 23:50 - CONCLUSION: Negative renal sonogram. Rogerio Gunn MD Physical Exam HEENT: Normocephalic CHEST: Resp even, mildly labored. Course breath sounds. CARDIAC: RRR ABDOMEN: Soft, mildly distended, some tympany. Hypoactive bowel sounds. liquid brown stool in [place] EXTREMITIES: BUE edema MEDICAL PARASITOLOGIST: on vent (Renee Nieves MACHINE GREASER) Assessment and Plan Plan ASSESSMENT - Colonic ileus. CT Scan abdomen and pelvis with IV contrast (05/05/17)----> Interval development of gaseous distention of the right and transverse colon with abrupt change in luminal dimension at the splenic flexure. There is a rectal tube in place and cannot differentiate between a focal obstruction/stricture versus decompression from the rectal tube. Increasing consolidation/atelectasis in the left lower lobe and persistent right lower lobe consolidation and bilateral pleural effusion. Stable mild free fluid in the pelvis. S/P 2 SSE. S/P Relistor S/P Decompressive colonoscopy (05/06/17)----> stool throughout the colon, I did not see any masses, visualization was compromised with stool, decompression colon tube was placed. Miralax, Lactulose. Rpt. KUB (05/07/17)--> - Anemia, macrocytic. S/P EGD (04/30/17)---> Martinez esophagus, Esophagitis, Gastritis, Foreign body in the distal esophagus. Pathology reactive gastropathy. S/P 2 units RBC, 2 units Platelets. Vitamin B12 1298. HH 8.8/27.3. PPI - Martinez's Esophagus, Esophagitis, Gastritis. Pathology reactive gastropathy. PPI - Foreign body in distal esophagus, s/p EGD. - Elevated ammonia, acute encephalopathy. Ammonia 45. Lactulose, Xifaxan. - Elevated bilirubin. CT as above. History of ETOH abuse, drinks 1/5 of vodka daily. Hypoalbuminemia with albumin 2.1. Mild coagulopathy. Suspect liver cirrhosis, likely secondary to alcohol, fatty liver disease. Check ammonia level. - Thrombocytopenia. S/P 2 platelet transfusion. - Sepsis, unclear source. Urine negative for legionella, streptococcus, bcx neg , sputum cx with light growth normal respiratory andrea. CT reveals possible pneumonia. - Respiratory failure, COPD. Pt extubated on Sunday. Mildly labored breathing. - Encephalopathy. Obtunded, but nurse reports she recently medicated with ativan. Will check ammonia level. 05/09/17 KUB 05/08 showing mild improvement gaseous distention. pt less distended and tympanitic today, per RN less gastric output. ok to restart TF, remove rectal tube HH relatively stable 05/10/17 - gloria TF @ 45ml/hr, + liquid stool, HH stable PLAN - cont TF - continue bowel regimen - Cont. Xifaxan - Cont. PPI - Supportive care - GI will sign off, please reconsult if needed - Patient seen and examined by Dr. Green and myself and this note is written on her behalf. (Renee Nieves) Renee Nieves May 10, 2017 10:12 Roxanne Green MD May 10, 2017 22:44
[2017-05-10] MEDS: SODIUM PHOSPHATE INJ 30 MMOL in SODIUM CHLOR 0.9% 250 ML INJ 240 ML IV PRN (10:31)
[2017-05-10] MEDS: MAGNESIUM SULFATE INJ 2 GM in SODIUM CHLORIDE 0.9% INJ 96 ML IV PRN (10:32)
[2017-05-10] MEDS: fentaNYL DRIP 250 ML IV PRN (13:32)
[2017-05-10] MEDS ORDERED: SODIUM CHLOR 0.9% 1000 ML INJ 1,000 ML IV ONE (18:30)
[2017-05-10] MEDS: DEXTROSE 5% IN WATE 1000ML INJ 1,000 ML IV SCH (22:38)
[2017-05-11] VITALS (19 sets, daily range): BP systolic 83–161; BP diastolic 52–82; PULSE 82–126; RESP 16–30; TEMP 98.1–100.1; O2SAT 100
[2017-05-11] MEDS: LACTULOSE SYRUP 20 GM/30 ML CUP PO SCH ×4 (02:17→21:01)
[2017-05-11] MEDS: RESP: ALBUTEROL 2.5 MG/IPRATROPIUM 0.5 MG NEB (SCH) NEB ×5 (03:13→20:20)
[2017-05-11] MEDS: RESP: ACETYLCYSTEINE 10% 30 ML NEB NEB SCH ×3 (03:14→10:39)
[2017-05-11 04:31] LABS: HEMATOCRIT 31.3 % (39.0-51.0); MEAN CELL VOLUME 107.5 FL (80.0-100.0); MEAN CORPUSCULAR HEMOGLOBIN 35.3 PG (27.0-34.0); MEAN CORPUSCULAR HGB CONC 32.9 % (32.0-36.0); PLATELET COUNT 221 TH/MM3 (150-450); RED BLOOD COUNT 2.91 MIL/MM3 (4.50-5.90); RED CELL DISTRIBUTION WIDTH 24.4 % (11.6-17.2); WHITE BLOOD COUNT 8.2 TH/MM3 (4.0-11.0)
[2017-05-11 04:39] LABS: HEMO FLAGS AUTO DIFF
[2017-05-11 04:56] LABS: BICARBONATE 28.6 MEQ/L (21.0-32.0); MAGNESIUM 1.8 MG/DL (1.5-2.5); POTASSIUM 3.7 MEQ/L (3.5-5.1)
--- NOTE | 2017-05-11 05:25 | RADRPT ---
EXAM DATE/TIME: 05/11/2017 04:11 [facility] COMPARISON: CHEST SINGLE AP, May 08, 2017, 12:34. INDICATIONS : Shortness of breath. MEDICAL HISTORY : Chronic obstructive pulmonary disease. Seizure. SURGICAL HISTORY : None. ENCOUNTER: Subsequent ACUITY: 1 month PAIN SCORE: Non-responsive. LOCATION: chest FINDINGS: A single portable frontal view of the chest shows consolidation involving the left lower lobe. This i s somewhat improved. Small left effusion. Right lung is clear. Heart is normal in size. Tip of the en dotracheal tube 3 cm from the hoda. Tip of NG tube at the GE junction. CONCLUSION: Slight improvement in the left lower lobe infiltrate. Tip of the NG tube at the GE junction. Rogerio Harris Jr., MD on May 11, 2017 at 5:23 Board Certified Radiologist. This report was verified electronically.
[2017-05-11] MEDS: ARTIFICIAL TEARS OPTH SOLN 15 ML BTL EACH EYE SCH ×3 (05:43→21:01)
[2017-05-11 07:20] LABS: BANDS 27 % (0-6); EOSINOPHILS 7 % (0-4); NEUTROPHIL # MANUAL DIFF 6.8 TH/MM3 (1.8-7.7); POLYS (SEG NEUTROPHILS) 56 % (16-70); WBC DIFF SAMPLE 100
[2017-05-11 07:22] LABS: PLATELET ESTIMATE SMEAR NORMAL (NORMAL); PLATELET MORPHOLOGY NORMAL (NORMAL); SCAN/DIFF FINAL DIFF MANUAL
[2017-05-11] MEDS: CHLORHEXIDINE 0.12% (ORAL KIT) 15 ML CUP MT SCH ×2 (07:37→20:00)
[2017-05-11] MEDS: FREE WATER G-TUBE SCH ×2 (08:00→15:48)
[2017-05-11] MEDS: POLYETHYLENE GLYCOL 17 GM PKG PO SCH (08:22)
[2017-05-11] MEDS: NICOTINE 14 MG/24 HR PATCH T-DERMAL SCH (08:22)
[2017-05-11] MEDS: REMOVE OLD PATCH T-DERMAL SCH (08:22)
[2017-05-11] MEDS: PANTOPRAZOLE SODIUM 40 MG VIAL IV PUSH SCH (08:23)
[2017-05-11] MEDS: HEPARIN SODIUM - SQ 10,000 UNITS/ML VIAL SQ SCH ×2 (08:23→21:01)
[2017-05-11] MEDS: THIAMINE HCL 100 MG TAB PO SCH (08:24)
[2017-05-11] MEDS: DOCUSATE SODIUM 50 MG/SENNA 8.6 MG TAB PO SCH ×2 (08:24→21:00)
[2017-05-11] MEDS: MULTIVITAMIN TAB PO SCH (08:24)
[2017-05-11] MEDS: FOLIC ACID 1 MG TAB PO SCH (08:24)
[2017-05-11] MEDS: RIFAXIMIN 550 MG TAB PO SCH ×2 (08:24→21:00)
[2017-05-11] MEDS: GABAPENTIN 300 MG CAP PO SCH ×3 (08:24→17:03)
[2017-05-11] MEDS: SODIUM CHLORIDE 0.9% FLUSH 10 ML FLUSH IVF SCH (08:44)
[2017-05-11] MEDS: DEXTROSE 5% IN WATE 1000ML INJ 1,000 ML IV SCH (10:56)
[2017-05-11] MEDS: ONDANSETRON HCL 4 MG/2 ML VIAL IV PRN (10:56)
[2017-05-11] MEDS: fentaNYL DRIP 250 ML IV PRN (13:23)
[2017-05-11] MEDS ORDERED: RESP: ALBUTEROL 2.5 MG/3 ML NEB (PRN) NEB ×2 (13:30→13:45)
--- NOTE | 2017-05-11 13:57 | HHI.CCPN ---
Subjective Remarks/Hospital Course 61yM with h/o prior hepatic encephalopathy, etoh abuse, tobacco abuse, now admitted with weakness, fever, chills, worsening hypotension. called by hospitalist service overnight for clinical decline despite ivf resuscitation. Patient does complain of flank pain, but denies chest pain, abdominal pain. u/a +. started earlier on vanc/zosyn. has not voided. becoming worseningly agitated. unable to provide any additional information due to altered mental status. 04/28: Chart reviewed. Patient still quite agitated stating "I have to pee" patient has a Young catheter. Complaining of flank pain. Noted renal ultrasound negative. Currently on norepinephrine at 12 mg per minute. 04/29: Resting in bed in no acute distress. Currently on norepinephrine at 7 per minute for vasopressor support. Transfuse 2 units PRBC and 2 pack platelets overnight. Dilutional. Absolutely no signs of active bleeding. 04/30 Patient is sedated with Fentanyl and intubated. On Levophed 5 mics. Afebrile. For EGD today. 05/01 No events overnight. Sedated and intubated. On Levophed 4 mics. s/p EGD yesterday with shoed esophagitis, gastritis, food impaction in distal esophagus removed. 05/02: Afebrile. Off all vasopressors. NG tube advanced by IR yesterday. Feeding to be initiated today. Currently on fentanyl drip 05/03: Remains intubated sedated and not following commands remains on fentanyl infusion. Attempt CPAP trial if patient wakeful enough. Urine output minimal only 300 mL in 24 hours. Will give albumin and Bumex 05/04 Patient is sedated with Fentanyl and intubated. Afebrile. 05/05 Patient was self extubated last night. For possible decompressive colonoscopy today. Afebrile. 05/06 Patient is on 3L oxygen for decompressive colonoscopy today. On Precedex drip for agitation. CT abdomen/pelvis last night showed development of gaseous distention of the right and transverse colon with abrupt change in luminal dimension at the splenic flexure. There is a rectal tube in place and cannot differentiate between a focal obstruction/stricture versus decompression from the rectal tube. 05/07 Patient s/p decompressive colonoscopy last night KUB this morning showed decreased colonic distention. On 4L oxygen. 05/08 Patient was unresponsive on BIPAP this morning and was in resp distress he was subsequently intubated and placed on mechanical ventilation. CXR post intubation showed complete opacification of left hemithorax likely 2nd mucous plug 05/09 Patient is sedated with Fentanyl and intubated. Afebrile. 05/10 Patient remains sedated and intubated. Afebrile. Tolerating tube feeds Subjective 05/11: Tolerated PSV trials 3 hours today. Not tolerating tube feeding currently. KUB pending. Positive BM. Decreased urine output noted. Objective Vital Signs Date Time Temp Pulse Resp B/P (MAP) Pulse Ox O2 Delivery O2 Flow Rate FiO2 05/11/17 12:00 99.8 126 30 108/82 (91) 100 05/11/17 12:00 35 05/11/17 07:14 Ventilator 05/07/17 07:28 4.00 Intake and Output 05/11/17 05/11/17 05/12/17 08:00 16:00 00:00 Intake Total 1188 ml 545 ml Output Total 550 ml Balance 638 ml 545 ml Result Diagram: 05/11/17 0411 05/11/17 041 Other Results Microbiology Date/Time Source Procedure Growth Status 04/27/17 14:15 Blood Peripheral Aerobic Blood Culture - Final NO GROWTH IN 5 DAYS Complete 04/27/17 14:15 Blood Peripheral Anaerobic Blood Culture - Final NO GROWTH IN 5 DAYS Complete 05/08/17 11:00 Bronchial Washings Bronchial Fungal Smear - Final NO FUNGAL ELEMENTS SEEN. Resulted 05/08/17 11:00 Bronchial Washings Bronchial Fungal Culture Pending Resulted 05/06/17 07:50 Urine Catheterized Urine Urine Culture - Final NO GROWTH IN 48 HOURS. Complete Imaging Last Impressions Chest X-Ray 05/11/17 0000 Signed Impressions: Service Date/Time: Thursday, May 11, 2017 04:11 - CONCLUSION: Slight improvement in the left lower lobe infiltrate. Tip of the NG tube at the GE junction. Rogerio Harris Jr., MD Chest Ultrasound 05/08/17 0000 Signed Impressions: Service Date/Time: Monday, May 08, 2017 13:01 - CONCLUSION: 1. There is a small left pleural effusion with insufficient volume for thoracentesis at this time. Ronaldo Howell MD Abdomen X-Ray 05/08/17 0000 Signed Impressions: Service Date/Time: Monday, May 08, 2017 07:20 - CONCLUSION: 1. Mild improvement in the bowel gas pattern with decreased gaseous distention of the colon. 2. The colonic tube remains in place. Johnathon White MD Abdomen/Pelvis CT 05/05/17 0600 Signed Impressions: Service Date/Time: Friday, May 05, 2017 18:38 - CONCLUSION: 1. Interval development of gaseous distention of the right and transverse colon with abrupt change in luminal dimension at the splenic flexure. There is a rectal tube in place and cannot differentiate between a focal obstruction/stricture versus decompression from the rectal tube. 2. Increasing consolidation/atelectasis in the left lower lobe and persistent right lower lobe consolidation and bilateral pleural effusions. 3. Stable mild free fluid in the pelvis. Rogerio Gunn MD Abdomen Fluoroscopy 05/01/17 0000 Signed Impressions: Service Date/Time: Monday, May 01, 2017 13:13 - CONCLUSION: Uncomplicated nasogastric tube placement as above. Zain Kumar MD Lower Extremity Ultrasound 04/28/17 0000 Signed Impressions: Service Date/Time: Friday, April 28, 2017 16:47 - CONCLUSION: Negative exam with no evidence of deep venous thrombosis. Johnathon White MD Chest CT 04/28/17 0000 Signed Impressions: Service Date/Time: Friday, April 28, 2017 11:03 - CONCLUSION: 1. Small bilateral pleural effusions with atelectasis in both lower lobes. There is also a focal area of groundglass opacity in the lingula that is nonspecific but could represent an infectious or inflammatory process. 2. Moderate size hiatal hernia with dilated and fluid-filled esophagus suggesting gastroesophageal reflux. The nasogastric tube distal tip is in the distal esophagus and should ideally be advanced into the stomach. Olu Triana MD Head CT 04/27/17 1017 Signed Impressions: Service Date/Time: Thursday, April 27, 2017 11:00 - CONCLUSION: 1. No acute intracranial abnormality. 2. Complete opacification left maxillary sinus. Keagan Shipman MD Renal Ultrasound 04/27/17 0000 Signed Impressions: Service Date/Time: Thursday, April 27, 2017 23:50 - CONCLUSION: Negative renal sonogram. Rogerio Gunn MD Objective Remarks GENERAL: 61 year old male critically ill currently orotracheally intubated SKIN: Warm and dry. No rash HEAD: Normocephalic. EYES: No scleral icterus. Pupils are round 3 mm bilaterally and reactive No injection or drainage. NECK: Supple, trachea midline. No JVD or lymphadenopathy. Orally intubated CARDIOVASCULAR: RRR. S1, S2 no S4 without murmur RESPIRATORY: Breath sounds equal bilaterally. No accessory muscle use. GASTROINTESTINAL: Slightly distended. Hypoactive bowel sounds appreciated throughout. MUSCULOSKELETAL: No significant peripheral edema Neuro: Cranial nerves II through XII grossly intact. Eyes are currently closed. Withdraws to pain. Date of Insertion: Apr 28, 2017 Line: Central Venous Catheter Side: Right Location: Femoral A/P Assessment and Plan Neuro/Psych: Acute encephalopathy likely secondary to EtOH withdrawal/sepsis/hyperammonia Alcohol dependence Fentanyl infusion for sedation and vent synchrony. Daily sedation vacation. Monitor neuro status Thiamine, folate and multivitamin daily CT brain 04/27 revealed left maxillary sinusitis otherwise no acute intra- cranial findings Patient does have a history of EtOH withdrawal seizures. Seizure precautions CV: Severe sepsis Lactic acidosis- cleared Monitor HR and BP keep MAP>65mmHg Lactic acid 1.7 04/29 Resp: VDRF- reintubated 05/08 COPD Ongoing tobaccoism Continue with vent support ACV 16/550/5/35 keep sat >92% Check ABG Bronchodilators ICU vent bundle SBT as liudmila. s/p bronch with BAL 05/08: Thick secretions/mucous plug left main sten bronchus suctioned to clear CXR post bronch showed improved aeration left lung. Nicotine patch 14 mg daily. GI: Hyperammonia - Elevated AST Hypoalbuminemia - mild protein calorie malnutrition Hiatal hernia Sigmoid diverticulosis Hepatic steatosis On tube feeds-Jevity 1.5 at goal 60 cc an hour. Currently on hold due to nausea. Check KUB On lactulose 30 cc every 6 hours and Xifaxan 550 mg by mouth twice a day for elevated ammonia. Currently 45 KUB 10/4: Mild improvements in bowel gas pattern. KUB 10/2: Decreased colonic distention s/p decompressive colonoscopy 05/06: Stool throughout the colon, Decompression colon tube was placed 05/05 CT abdomen/pelvis: showed development of gaseous distention of the right and transverse colon with abrupt change in luminal dimension at the splenic flexure. There is a rectal tube in place and cannot differentiate between a focal obstruction/stricture versus decompression from the rectal tube. For decompressive colonoscopy today. Recta KUB abdomen 05/04 showed severe ileus, cecum dilated to 10 cm s/p EGD 04/30: Esophagitis, gastritis, food impaction in distal esophagus removed. Pantoprazole for GI prophylaxis Docusate sodium/senna 1 tablet twice a day for bowel regimen : Right kidney nonobstructing stone 3 mm Renal ultrasound revealed no hydronephrosis Free water 250ml Q8.. Monitor sodium level. on D5W@75ml/hr Monitor renal function, I/O's, electrolytes replacement per protocol. Will need phos replaceemnt today. Endo: Sliding-scale insulin to maintain euglycemia with Accu-Cheks every 6 hours with low regimen with Novulin R TSH: 3.14 04/28 Heme: Macrocytic anemia Thrombocytopenia...improving Likely secondary to EtOH/chronic liver disease possibility of underlying sepsis Patient was transfused 2 pack platelets and 2 PRBC 04/28. Follow CBC daily. Monitor trends. ID: Off abx(s/p Zosyn 04/27- 05/06)monitor for signs of infections ( Fever, WBC) Afebrile, Follow up on BAL results- NGTD Pertinent cultures Blood cultures 2 -04/27 -no growth to date Urine culture - 04/27 -50 - 100,000 mixed gram-positive Sputum 04/28- normal resp andrea Urine pneumococcal and Legionella antigens negative MSK: PT evaluate and treat Access - Peripheral IV's Prophylaxis - GI - pantoprazole - DVT - SCD/ Heparin SQ , Level 2 Ray Montes MD May 11, 2017 13:57
[2017-05-11] MEDS ORDERED: POTASSIUM CHLORIDE 20 MEQ PWD PACKET PO ONE (14:00)
[2017-05-11] MEDS ORDERED: FUROSEMIDE 40 MG/4 ML VIAL IV PUSH ONE (14:00)
[2017-05-11] MEDS: ALBUMIN HUMAN 5% 25 GM/500 ML BOTTLE IV SCH (14:35)
[2017-05-11] MEDS: MAGNESIUM SULFATE 1 GM PREMIX 100 ML IV SCH ×2 (14:36→15:44)
[2017-05-11] MEDS: METOCLOPRAMIDE HCL 10 MG/2 ML VIAL IV PUSH SCH ×2 (14:37→21:01)
[2017-05-11] MEDS: ACETAMINOPHEN 325 MG TAB PO PRN (15:59)
[2017-05-11] MEDS ORDERED: RESP: ALBUTEROL 2.5 MG/IPRATROPIUM 0.5 MG NEB (SCH) NEB (16:00)
[2017-05-11] MEDS: LORazepam 2 MG/ML VIAL IV PUSH PRN (17:31)
--- NOTE | 2017-05-11 19:20 | RADRPT ---
EXAM DATE/TIME: 05/11/2017 17:41 [facility] COMPARISON: No previous studies available for comparison. INDICATIONS : Ileus MEDICAL HISTORY : Seizures. ETOH withdraw. Confusion. Weakness. COPD. Gait problems SURGICAL HISTORY : Tonsillectomy. ENCOUNTER: Subsequent ACUITY: 3 weeks PAIN SCORE: Non-responsive. LOCATION: Abdomen FINDINGS: Since the previous exam the colon tube has been removed and the colon has become distended, up to abo ut 11 cm in the cecal region. No free air is identified. NG tip overlies proximal stomach. No acute b lulu abnormality. CONCLUSION: 1. Removal of colon tube with distention of entire colon up to about 11 cm in diameter in the cecal r egion. Paco Ramirez MD on May 11, 2017 at 19:17 Board Certified Radiologist. This report was verified electronically.
[2017-05-12] VITALS (19 sets, daily range): BP systolic 82–97; BP diastolic 50–64; PULSE 76–94; RESP 13–22; TEMP 97.6–98.9; O2SAT 99–100
[2017-05-12] MEDS: LACTULOSE SYRUP 20 GM/30 ML CUP PO SCH ×2 (02:22→08:24)
[2017-05-12] MEDS: ALBUMIN HUMAN 5% 25 GM/500 ML BOTTLE IV SCH ×2 (02:22→12:26)
[2017-05-12] MEDS: DEXTROSE 5% IN WATE 1000ML INJ 1,000 ML IV SCH ×2 (02:49→18:50)
[2017-05-12] MEDS: RESP: ALBUTEROL 2.5 MG/IPRATROPIUM 0.5 MG NEB (SCH) NEB ×4 (04:00→20:40)
[2017-05-12 04:21] LABS: AUTOMATED NEUTROPHIL # 6.3 TH/MM3 (1.8-7.7); BASOPHIL # 0.1 TH/MM3 (0-0.2); BASOPHIL % 0.8 % (0.0-2.0); EOSINOPHIL # 0.3 TH/MM3 (0-0.4); EOSINOPHIL % 3.1 % (0.0-4.0); HEMATOCRIT 26.1 % (39.0-51.0); HEMO FLAGS DIFF FINAL; LYMPH % 8.4 % (9.0-44.0); LYMPHOCYTE # 0.7 TH/MM3 (1.0-4.8); MEAN CELL VOLUME 107.9 FL (80.0-100.0); MEAN CORPUSCULAR HEMOGLOBIN 35.4 PG (27.0-34.0); MEAN CORPUSCULAR HGB CONC 32.9 % (32.0-36.0); MONO % 14.5 % (0.0-8.0); NEUT % 73.2 % (16.0-70.0); PLATELET COUNT 170 TH/MM3 (150-450); RED BLOOD COUNT 2.42 MIL/MM3 (4.50-5.90); RED CELL DISTRIBUTION WIDTH 24.7 % (11.6-17.2); WHITE BLOOD COUNT 8.6 TH/MM3 (4.0-11.0)
[2017-05-12 04:51] LABS: ANION GAP 6 MEQ/L (5-15); AST (GOT) 35 U/L (15-37); BICARBONATE 28.8 MEQ/L (21.0-32.0); BLOOD UREA NITROGEN 19 MG/DL (7-18); CHLORIDE 103 MEQ/L (98-107); GLOMERULAR FILTRATION RATE 111 ML/MIN (>89); MAGNESIUM 2.1 MG/DL (1.5-2.5); POTASSIUM 3.8 MEQ/L (3.5-5.1); SODIUM (NA) 138 MEQ/L (136-145)
[2017-05-12 04:56] LABS: ALKALINE PHOSPHATASE 91 U/L (45-117); ALT (GPT) 19 U/L (12-78); TOTAL BILIRUBIN ADULT 0.8 MG/DL (0.2-1.0)
--- NOTE | 2017-05-12 05:12 | RADRPT ---
EXAM DATE/TIME: 05/12/2017 03:49 [facility] COMPARISON: CHEST SINGLE AP, May 11, 2017, 4:11. INDICATIONS : Shortness of breath, possible pulmonary disease. MEDICAL HISTORY : Chronic obstructive pulmonary disease. Seizures SURGICAL HISTORY : None. ENCOUNTER: Subsequent ACUITY: 1 month PAIN SCORE: Non-responsive. LOCATION: Bilateral chest FINDINGS: A single portable frontal view the chest shows persistent consolidation within the medial left lower lobe. This is unchanged. A new area of consolidation is seen involving the right upper lobe. No discr ete effusions. Heart normal size. Given the endotracheal tube 4 cm proximal to hoda. Tip of the han ogastric tube just proximal to the GE junction. CONCLUSION: Upper lobe infiltrate with unchanged left lower lobe infiltrate. Rogerio Harris Jr., MD on May 12, 2017 at 5:10 Board Certified Radiologist. This report was verified electronically.
[2017-05-12] MEDS: METOCLOPRAMIDE HCL 10 MG/2 ML VIAL IV PUSH SCH ×3 (05:41→21:33)
[2017-05-12] MEDS: fentaNYL DRIP 250 ML IV PRN (05:41)
[2017-05-12] MEDS: ARTIFICIAL TEARS OPTH SOLN 15 ML BTL EACH EYE SCH ×3 (05:41→21:33)
--- NOTE | 2017-05-12 07:08 | RADRPT ---
EXAM DATE/TIME: 05/12/2017 06:36 [facility] COMPARISON: ABDOMEN KUB ONLY, May 11, 2017, 17:41. INDICATIONS : Known ileus. MEDICAL HISTORY : Chronic obstructive pulmonary disease. Seizures SURGICAL HISTORY : Tonsillectomy. ENCOUNTER: Subsequent ACUITY: 3 weeks PAIN SCORE: Non-responsive. LOCATION: Bilateral abdomen FINDINGS: 2 supine views of the abdomen show reinsertion of a rectal tube. This is coiled within the rectal vau lt. The tip projects towards the rectosigmoid junction. The colon remains gas distended although the cecum has decompressed in the interval. Mildly dilated loops of gas filled small bowel now seen. No o rganomegaly. CONCLUSION: 1. Reinsertion of the rectal tube which is coiled within the rectal vault. It may be kinked and not d raining well. 2. Persistent gaseous distention of the colon although a slight decrease in the volume of gas. 3. New mildly dilated gas-filled loops of small bowel. Rogerio Harris Jr., MD on May 12, 2017 at 7:05 Board Certified Radiologist. This report was verified electronically.
[2017-05-12] MEDS: CHLORHEXIDINE 0.12% (ORAL KIT) 15 ML CUP MT SCH ×2 (08:00→20:00)
[2017-05-12] MEDS: FREE WATER G-TUBE SCH ×4 (08:00→21:33)
[2017-05-12] MEDS: PANTOPRAZOLE SODIUM 40 MG VIAL IV PUSH SCH (08:24)
[2017-05-12] MEDS: POLYETHYLENE GLYCOL 17 GM PKG PO SCH (08:26)
[2017-05-12] MEDS: RIFAXIMIN 550 MG TAB PO SCH ×2 (08:26→20:05)
[2017-05-12] MEDS: DOCUSATE SODIUM 50 MG/SENNA 8.6 MG TAB PO SCH ×2 (08:26→20:05)
[2017-05-12] MEDS: FOLIC ACID 1 MG TAB PO SCH (08:26)
[2017-05-12] MEDS: MULTIVITAMIN TAB PO SCH (08:26)
[2017-05-12] MEDS: GABAPENTIN 300 MG CAP PO SCH ×3 (08:26→18:00)
[2017-05-12] MEDS: THIAMINE HCL 100 MG TAB PO SCH (08:26)
[2017-05-12] MEDS: REMOVE OLD PATCH T-DERMAL SCH (08:28)
[2017-05-12] MEDS: NICOTINE 14 MG/24 HR PATCH T-DERMAL SCH (08:28)
[2017-05-12] MEDS: SODIUM CHLORIDE 0.9% FLUSH 10 ML FLUSH IVF SCH (08:29)
[2017-05-12] MEDS: PROPOFOL 1000 MG/100 ML INJ 100 ML IV PRN (08:31)
[2017-05-12] MEDS: HEPARIN SODIUM - SQ 10,000 UNITS/ML VIAL SQ SCH ×2 (09:00→20:05)
--- NOTE | 2017-05-12 10:09 | HHI.GIFU ---
Subjective Remarks Pt having increasing distention. Rectal tube appeared to have been kinked, nurse repositioned this morning. (Renee Nieves) Objective Vitals I&O Vital Signs Date Time Temp Pulse Resp B/P (MAP) Pulse Ox O2 Delivery O2 Flow Rate FiO2 05/12/17 09:20 100 35 05/12/17 08:00 35 05/12/17 08:00 97.6 81 17 82/50 (61) 100 05/12/17 08:00 81 05/12/17 06:00 82 05/12/17 04:04 100 35 05/12/17 04:00 84 05/12/17 04:00 98.8 84 15 93/62 (72) 100 05/12/17 04:00 35 05/12/17 02:00 81 05/12/17 01:20 100 35 05/12/17 00:00 80 05/12/17 00:00 98.9 80 13 85/64 (71) 100 05/12/17 00:00 35 05/11/17 22:20 100 35 05/11/17 22:00 82 05/11/17 20:05 100 35 05/11/17 20:00 35 05/11/17 20:00 83 05/11/17 20:00 98.1 83 16 86/52 (63) 100 05/11/17 18:00 102 05/11/17 16:23 100 35 05/11/17 16:00 100 05/11/17 16:00 35 05/11/17 16:00 100.1 102 17 83/63 (70) 100 05/11/17 14:00 114 05/11/17 12:00 99.8 126 30 108/82 (91) 100 05/11/17 12:00 35 05/11/17 12:00 126 05/11/17 10:33 100 35 I/O 05/11/17 05/11/17 05/11/17 05/12/17 05/12/17 05/12/17 07:00 15:00 23:00 07:00 15:00 23:00 Intake Total 1188 ml 545 ml 1865 ml 1571 ml Output Total 550 ml 350 ml 250 ml Balance 638 ml 545 ml 1515 ml 1321 ml IV Total 677 ml 545 ml 1113 ml 1571 ml Tube Feeding 511 ml 262 ml Other 490 ml Output Urine Total 250 ml 350 ml 200 ml Stool Total 300 ml 0 ml 50 ml Laboratory Laboratory Tests Test 05/12/17 04:00 White Blood Count 8.6 Red Blood Count 2.42 Hemoglobin 8.6 Hematocrit 26.1 Mean Corpuscular Volume 107.9 Mean Corpuscular Hemoglobin 35.4 Mean Corpuscular Hemoglobin Concent 32.9 Red Cell Distribution Width 24.7 Platelet Count 170 Mean Platelet Volume 10.4 Neutrophils (%) (Auto) 73.2 Lymphocytes (%) (Auto) 8.4 Monocytes (%) (Auto) 14.5 Eosinophils (%) (Auto) 3.1 Basophils (%) (Auto) 0.8 Neutrophils # (Auto) 6.3 Lymphocytes # (Auto) 0.7 Monocytes # (Auto) 1.2 Eosinophils # (Auto) 0.3 Basophils # (Auto) 0.1 CBC Comment DIFF FINAL Differential Comment Blood Urea Nitrogen 19 Creatinine 0.72 Random Glucose 97 Total Protein 5.5 Albumin 2.3 Calcium Level 8.1 Phosphorus Level 3.1 Magnesium Level 2.1 Alkaline Phosphatase 91 Aspartate Amino Transf (AST/SGOT) 35 Alanine Aminotransferase (ALT/SGPT) 19 Total Bilirubin 0.8 Sodium Level 138 Potassium Level 3.8 Chloride Level 103 Carbon Dioxide Level 28.8 Anion Gap 6 Estimat Glomerular Filtration Rate 111 Ammonia 42 Date/Time Source Procedure Growth Status 04/27/17 14:15 Blood Peripheral Aerobic Blood Culture - Final NO GROWTH IN 5 DAYS Complete 04/27/17 14:15 Blood Peripheral Anaerobic Blood Culture - Final NO GROWTH IN 5 DAYS Complete 05/08/17 11:00 Bronchial Washings Bronchial Fungal Smear - Final NO FUNGAL ELEMENTS SEEN. Resulted 05/08/17 11:00 Bronchial Washings Bronchial Fungal Culture Pending Resulted 05/06/17 07:50 Urine Catheterized Urine Urine Culture - Final NO GROWTH IN 48 HOURS. Complete Imaging Last Impressions Chest X-Ray 05/12/17 0600 Signed Impressions: Service Date/Time: Friday, May 12, 2017 03:49 - CONCLUSION: Upper lobe infiltrate with unchanged left lower lobe infiltrate. Rogerio Harris Jr., MD Abdomen X-Ray 05/12/17 0000 Signed Impressions: Service Date/Time: Friday, May 12, 2017 06:36 - CONCLUSION: 1. Reinsertion of the rectal tube which is coiled within the rectal vault. It may be kinked and not draining well. 2. Persistent gaseous distention of the colon although a slight decrease in the volume of gas. 3. New mildly dilated gas-filled loops of small bowel. Rogerio Harris Jr., MD Chest Ultrasound 05/08/17 0000 Signed Impressions: Service Date/Time: Monday, May 08, 2017 13:01 - CONCLUSION: 1. There is a small left pleural effusion with insufficient volume for thoracentesis at this time. Ronaldo Howell MD Abdomen/Pelvis CT 05/05/17 0600 Signed Impressions: Service Date/Time: Friday, May 05, 2017 18:38 - CONCLUSION: 1. Interval development of gaseous distention of the right and transverse colon with abrupt change in luminal dimension at the splenic flexure. There is a rectal tube in place and cannot differentiate between a focal obstruction/stricture versus decompression from the rectal tube. 2. Increasing consolidation/atelectasis in the left lower lobe and persistent right lower lobe consolidation and bilateral pleural effusions. 3. Stable mild free fluid in the pelvis. Rogerio Gunn MD Abdomen Fluoroscopy 05/01/17 0000 Signed Impressions: Service Date/Time: Monday, May 01, 2017 13:13 - CONCLUSION: Uncomplicated nasogastric tube placement as above. Zain Kumar MD Lower Extremity Ultrasound 04/28/17 0000 Signed Impressions: Service Date/Time: Friday, April 28, 2017 16:47 - CONCLUSION: Negative exam with no evidence of deep venous thrombosis. Johnathon White MD Chest CT 04/28/17 0000 Signed Impressions: Service Date/Time: Friday, April 28, 2017 11:03 - CONCLUSION: 1. Small bilateral pleural effusions with atelectasis in both lower lobes. There is also a focal area of groundglass opacity in the lingula that is nonspecific but could represent an infectious or inflammatory process. 2. Moderate size hiatal hernia with dilated and fluid-filled esophagus suggesting gastroesophageal reflux. The nasogastric tube distal tip is in the distal esophagus and should ideally be advanced into the stomach. Olu Triana MD Head CT 04/27/17 1017 Signed Impressions: Service Date/Time: Thursday, April 27, 2017 11:00 - CONCLUSION: 1. No acute intracranial abnormality. 2. Complete opacification left maxillary sinus. Keagan F. Tocci, MD Renal Ultrasound 04/27/17 0000 Signed Impressions: Service Date/Time: Thursday, April 27, 2017 23:50 - CONCLUSION: Negative renal sonogram. Rogerio Gunn MD Physical Exam HEENT: Normocephalic CHEST: Resp even, mildly labored. Course breath sounds. CARDIAC: RRR ABDOMEN: firm, distended, tympanitic, BS hypoactive. 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 CT Scan abdomen and pelvis with IV contrast (05/05/17)----> Interval development of gaseous distention of the right and transverse colon with abrupt change in luminal dimension at the splenic flexure. There is a rectal tube in place and cannot differentiate between a focal obstruction/stricture versus decompression from the rectal tube. Increasing consolidation/atelectasis in the left lower lobe and persistent right lower lobe consolidation and bilateral pleural effusion. Stable mild free fluid in the pelvis. S/P 2 SSE. S/P Relistor S/P Decompressive colonoscopy (05/06/17)----> stool throughout the colon, I did not see any masses, visualization was compromised with stool, decompression colon tube was placed. Miralax, Lactulose. Rpt. KUB (05/07/17)--> - Anemia, macrocytic. S/P EGD (04/30/17)---> Martinez esophagus, Esophagitis, Gastritis, Foreign body in the distal esophagus. Pathology reactive gastropathy. S/P 2 units RBC, 2 units Platelets. Vitamin B12 1298. HH 8.8/27.3. PPI - Martinez's Esophagus, Esophagitis, Gastritis. Pathology reactive gastropathy. PPI - Foreign body in distal esophagus, s/p EGD. - Elevated ammonia, acute encephalopathy. Ammonia 45. Lactulose, Xifaxan. - Elevated bilirubin. CT as above. History of ETOH abuse, drinks 1/5 of vodka daily. Hypoalbuminemia with albumin 2.1. Mild coagulopathy. Suspect liver cirrhosis, likely secondary to alcohol, fatty liver disease. Check ammonia level. - Thrombocytopenia. S/P 2 platelet transfusion. - Sepsis, unclear source. Urine negative for legionella, streptococcus, bcx neg , sputum cx with light growth normal respiratory andrea. CT reveals possible pneumonia. - Respiratory failure, COPD. Pt extubated on Sunday. Mildly labored breathing. - Encephalopathy. Obtunded, but nurse reports she recently medicated with ativan. Will check ammonia level. 05/09/17 KUB 05/08 showing mild improvement gaseous distention. pt less distended and tympanitic today, per RN less gastric output. ok to restart TF, remove rectal tube HH relatively stable 05/10/17 - liudmila TF @ 45ml/hr, + liquid stool, HH stable 05/12/17 - intermittent copious output from NGT per RN, increasing distention and abd firm. KUB noted, may need decompressive colonoscopy. RN did attempt to reposition rectal tube this morning PLAN - hold TF - obtain consent for decompressive colonoscopy - cont with rectal tube - continue bowel regimen - Cont. Xifaxan - Cont. PPI - Supportive care - Patient seen and examined by Dr. Green and myself and this note is written on her behalf. (Renee Nieves) Physician Comments colonoscopy with decompression and biopsy done large amount of stool suctioned-decompression pseudomembrane mostly in right colon-biopsy start Flagyl iv Vancomycin po if tolerated if not change to enema ID consult if worse surgical consult (Roxanne Green MD) Renee Nieves May 12, 2017 10:09 Roxanne Green MD May 12, 2017 15:04
[2017-05-12] MEDS ORDERED: METHYLNALTREXONE BROMIDE 12 MG/0.6 ML VIAL SQ ONE (11:45)
[2017-05-12] MEDS ORDERED: PHENYLEPH/NS 1000 MCG/10 ML SYR IV ONE (12:00)
[2017-05-12] MEDS ORDERED: ROCURONIUM INJ 50 MG/5 ML SYRINGE IV PUSH ONE (12:00)
[2017-05-12] MEDS: MIDAZOLAM 100 MG/100 ML INJ 100 ML IV PRN (12:30)
[2017-05-12] MEDS: DEXMEDETOMIDINE INJ 200 MCG in SODIUM CHLORIDE 0.9% INJ 50 ML IV PRN (12:30)
[2017-05-12] MEDS: ONDANSETRON HCL 4 MG/2 ML VIAL IV PRN (12:39)
--- NOTE | 2017-05-12 14:27 | PD.PROCEDR ---
Central Line Procedure REASON FOR PROCEDURE Central venous access PROCEDURE PERFORMED Central line placement: Right IJ CVL CONSENT Informed consent for procedure was obtained. The risks and benefits of the procedure were discussed to include but limited to bleeding, clot formation, infection, and even . ANESTHESIA Local injection of 1% Lidocaine DESCRIPTION OF THE PROCEDURE The patient was placed in supine, mild Trendelenburg position. The area was exposed and cleansed with ChloraPrep, times two. Large sterile drape was used to cover the patient, with the site exposed, under sterile conditions including cap, face mask, sterile gown, and sterile gloves. On single attempt, the introducer needle was inserted with negative pressure in syringe and venous flash was obtained. The guide wire was then advanced without any restriction and the needle was removed. The dilator was used without any complications. Using Seldinger technique the antibiotic coated triple-lumen catheter was advanced over the guide wire to a depth of 16 centimeters. The guide wire was removed. All ports were aspirated with dark venous blood return and flushed easily with sterile saline. All ports were capped. Antibiotic disc was placed around central line at puncture site. The central line was secured to the skin with two interrupted 2.0 silk sutures. The area was bandaged with sterile see- through central line bandage. RADIOLOGICAL DATA Ultrasound guidance was used to locate right internal jugular vein. Doppler/ color flow was used to confirm venous flow. COMPLICATIONS: No apparent complications ESTIMATED BLOOD LOSS: Less than 5 cc. Ray Montes MD May 12, 2017 14:27
[2017-05-12] MEDS ORDERED: NOREPINEPHRINE INJ 4 MG in SODIUM CHLOR 0.9% 250 ML INJ 246 ML IV PRN (14:30)
[2017-05-12] MEDS ORDERED: TERBUTALINE INJ 1 MG/ML AMP SQ PRN (14:30)
--- NOTE | 2017-05-12 14:35 | HHI.CCPN ---
Subjective Remarks/Hospital Course 61yM with h/o prior hepatic encephalopathy, etoh abuse, tobacco abuse, now admitted with weakness, fever, chills, worsening hypotension. called by hospitalist service overnight for clinical decline despite ivf resuscitation. Patient does complain of flank pain, but denies chest pain, abdominal pain. u/a +. started earlier on vanc/zosyn. has not voided. becoming worseningly agitated. unable to provide any additional information due to altered mental status. 04/28: Chart reviewed. Patient still quite agitated stating "I have to pee" patient has a Young catheter. Complaining of flank pain. Noted renal ultrasound negative. Currently on norepinephrine at 12 mg per minute. 04/29: Resting in bed in no acute distress. Currently on norepinephrine at 7 per minute for vasopressor support. Transfuse 2 units PRBC and 2 pack platelets overnight. Dilutional. Absolutely no signs of active bleeding. 04/30 Patient is sedated with Fentanyl and intubated. On Levophed 5 mics. Afebrile. For EGD today. 05/01 No events overnight. Sedated and intubated. On Levophed 4 mics. s/p EGD yesterday with shoed esophagitis, gastritis, food impaction in distal esophagus removed. 05/02: Afebrile. Off all vasopressors. NG tube advanced by IR yesterday. Feeding to be initiated today. Currently on fentanyl drip 05/03: Remains intubated sedated and not following commands remains on fentanyl infusion. Attempt CPAP trial if patient wakeful enough. Urine output minimal only 300 mL in 24 hours. Will give albumin and Bumex 05/04 Patient is sedated with Fentanyl and intubated. Afebrile. 05/05 Patient was self extubated last night. For possible decompressive colonoscopy today. Afebrile. 05/06 Patient is on 3L oxygen for decompressive colonoscopy today. On Precedex drip for agitation. CT abdomen/pelvis last night showed development of gaseous distention of the right and transverse colon with abrupt change in luminal dimension at the splenic flexure. There is a rectal tube in place and cannot differentiate between a focal obstruction/stricture versus decompression from the rectal tube. 05/07 Patient s/p decompressive colonoscopy last night KUB this morning showed decreased colonic distention. On 4L oxygen. 05/08 Patient was unresponsive on BIPAP this morning and was in resp distress he was subsequently intubated and placed on mechanical ventilation. CXR post intubation showed complete opacification of left hemithorax likely 2nd mucous plug 05/09 Patient is sedated with Fentanyl and intubated. Afebrile. 05/10 Patient remains sedated and intubated. Afebrile. Tolerating tube feeds 05/11: Tolerated PSV trials 3 hours today. Not tolerating tube feeding currently. KUB pending. Positive BM. Decreased urine output noted. Subjective 05/12: Lasted 1 hour on PSV trials today. Currently vomiting will be decompressed from above and below per GI today. Afebrile. Central line placed due to persistent hypotension Objective Vital Signs Date Time Temp Pulse Resp B/P (MAP) Pulse Ox O2 Delivery O2 Flow Rate FiO2 05/12/17 10:05 100 35 05/12/17 10:00 93 05/12/17 08:00 97.6 17 82/50 (61) 05/11/17 07:14 Ventilator Intake and Output 05/12/17 05/12/17 05/12/17 07:59 15:59 23:59 Intake Total 1571 ml Output Total 250 ml Balance 1321 ml Result Diagram: 05/12/17 0400 05/12/17 0400 Other Results Microbiology Date/Time Source Procedure Growth Status 04/27/17 14:15 Blood Peripheral Aerobic Blood Culture - Final NO GROWTH IN 5 DAYS Complete 04/27/17 14:15 Blood Peripheral Anaerobic Blood Culture - Final NO GROWTH IN 5 DAYS Complete 05/08/17 11:00 Bronchial Washings Bronchial Fungal Smear - Final NO FUNGAL ELEMENTS SEEN. Resulted 05/08/17 11:00 Bronchial Washings Bronchial Fungal Culture Pending Resulted 05/06/17 07:50 Urine Catheterized Urine Urine Culture - Final NO GROWTH IN 48 HOURS. Complete Imaging Last Impressions Chest X-Ray 05/12/17 0600 Signed Impressions: Service Date/Time: Friday, May 12, 2017 03:49 - CONCLUSION: Upper lobe infiltrate with unchanged left lower lobe infiltrate. Rogerio Harris Jr., MD Abdomen X-Ray 05/12/17 0000 Signed Impressions: Service Date/Time: Friday, May 12, 2017 06:36 - CONCLUSION: 1. Reinsertion of the rectal tube which is coiled within the rectal vault. It may be kinked and not draining well. 2. Persistent gaseous distention of the colon although a slight decrease in the volume of gas. 3. New mildly dilated gas-filled loops of small bowel. Rogerio Harris Jr., MD Chest Ultrasound 05/08/17 0000 Signed Impressions: Service Date/Time: Monday, May 08, 2017 13:01 - CONCLUSION: 1. There is a small left pleural effusion with insufficient volume for thoracentesis at this time. Ronaldo Howell MD Abdomen/Pelvis CT 05/05/17 0600 Signed Impressions: Service Date/Time: Friday, May 05, 2017 18:38 - CONCLUSION: 1. Interval development of gaseous distention of the right and transverse colon with abrupt change in luminal dimension at the splenic flexure. There is a rectal tube in place and cannot differentiate between a focal obstruction/stricture versus decompression from the rectal tube. 2. Increasing consolidation/atelectasis in the left lower lobe and persistent right lower lobe consolidation and bilateral pleural effusions. 3. Stable mild free fluid in the pelvis. Rogerio Gunn MD Abdomen Fluoroscopy 05/01/17 0000 Signed Impressions: Service Date/Time: Monday, May 01, 2017 13:13 - CONCLUSION: Uncomplicated nasogastric tube placement as above. Zain Kumar MD Lower Extremity Ultrasound 04/28/17 0000 Signed Impressions: Service Date/Time: Friday, April 28, 2017 16:47 - CONCLUSION: Negative exam with no evidence of deep venous thrombosis. Johnathon White MD Chest CT 04/28/17 0000 Signed Impressions: Service Date/Time: Friday, April 28, 2017 11:03 - CONCLUSION: 1. Small bilateral pleural effusions with atelectasis in both lower lobes. There is also a focal area of groundglass opacity in the lingula that is nonspecific but could represent an infectious or inflammatory process. 2. Moderate size hiatal hernia with dilated and fluid-filled esophagus suggesting gastroesophageal reflux. The nasogastric tube distal tip is in the distal esophagus and should ideally be advanced into the stomach. Olu Triana MD Head CT 04/27/17 1017 Signed Impressions: Service Date/Time: Thursday, April 27, 2017 11:00 - CONCLUSION: 1. No acute intracranial abnormality. 2. Complete opacification left maxillary sinus. Keagan Shipman MD Renal Ultrasound 04/27/17 0000 Signed Impressions: Service Date/Time: Thursday, April 27, 2017 23:50 - CONCLUSION: Negative renal sonogram. Rogerio Gunn MD Objective Remarks GENERAL: 61 year old male critically ill currently orotracheally intubated SKIN: Warm and dry. No rash HEAD: Normocephalic. EYES: No scleral icterus. Pupils are round 3 mm bilaterally and reactive No injection or drainage. NECK: Supple, trachea midline. No JVD or lymphadenopathy. Orally intubated. Right IJ is clean dry and intact CARDIOVASCULAR: RRR. S1, S2 no S4 without murmur RESPIRATORY: Breath sounds equal bilaterally. No accessory muscle use. GASTROINTESTINAL: Distended. Tenderness to deep palpation. No guarding. No rigidity. Hypoactive bowel sounds appreciated throughout. MUSCULOSKELETAL: No significant peripheral edema Neuro: Cranial nerves II through XII grossly intact. Eyes are currently closed. Withdraws to pain. Date of Insertion: Apr 28, 2017 Line: Central Venous Catheter Side: Right Location: Femoral A/P Assessment and Plan Neuro/Psych: Acute encephalopathy likely secondary to EtOH withdrawal/sepsis/hyperammonia Alcohol dependence Fentanyl infusion discontinued due to likely ileus. Currently on dexmedetomidine for sedation while intubated Goal of RA SS -2 Daily sedation vacation Thiamine, folate and multivitamin daily CT brain 04/27 revealed left maxillary sinusitis otherwise no acute intra- cranial findings Patient does have a history of EtOH withdrawal seizures. Seizure precautions CV: Severe sepsis - Lactic acidosis- cleared Monitor HR and BP keep MAP>65mmHg Started on norepinephrine today currently at 2 mcg per minute Check CVP Resp: VDRF- reintubated 05/08 COPD Ongoing tobaccoism Continue with vent support ACV 16/550/5/35 keep sat >92% Albuterol/ipratropium aerosols every 6 hours and albuterol aerosols every 2 hours. Dyspnea ICU vent bundle SBT as liudmila. s/p bronch with BAL 05/08: Thick secretions/mucous plug left main sten bronchus suctioned to clear CXR post bronch showed improved aeration left lung. Nicotine patch 14 mg daily. GI: Hyperammonia - Elevated AST Hypoalbuminemia - mild protein calorie malnutrition Hiatal hernia Sigmoid diverticulosis Hepatic steatosis On tube feeds-Jevity 1.5 at goal 60 cc an hour. Currently on hold due to nausea. Check KUB On lactulose 30 cc every 6 hours and Xifaxan 550 mg by mouth twice a day for elevated ammonia. Currently 45 KUB 10/4: Mild improvements in bowel gas pattern. KUB 10/2: Decreased colonic distention s/p decompressive colonoscopy 05/06: Stool throughout the colon, Decompression colon tube was placed 05/05 CT abdomen/pelvis: showed development of gaseous distention of the right and transverse colon with abrupt change in luminal dimension at the splenic flexure. There is a rectal tube in place and cannot differentiate between a focal obstruction/stricture versus decompression from the rectal tube. For decompressive colonoscopy today. Recta KUB abdomen 05/04 showed severe ileus, cecum dilated to 10 cm s/p EGD 04/30: Esophagitis, gastritis, food impaction in distal esophagus removed. Pantoprazole for GI prophylaxis Docusate sodium/senna 1 tablet twice a day for bowel regimen : Right kidney nonobstructing stone 3 mm Renal ultrasound revealed no hydronephrosis Free water 250ml Q8.. Monitor sodium level. on D5W@75ml/hr Monitor renal function, I/O's, electrolytes replacement per protocol. Will need phos replaceemnt today. Endo: Sliding-scale insulin to maintain euglycemia with Accu-Cheks every 6 hours with low regimen with Novulin R TSH: 3.14 04/28 Heme: Macrocytic anemia Thrombocytopenia...improving Likely secondary to EtOH/chronic liver disease possibility of underlying sepsis Patient was transfused 2 pack platelets and 2 PRBC 04/28. Follow CBC daily. Monitor trends. ID: Off abx(s/p Zosyn 04/27- 05/06)monitor for signs of infections ( Fever, WBC) Afebrile, Follow up on BAL results- NGTD Pertinent cultures Blood cultures 2 -04/27 -no growth to date Urine culture - 04/27 -50 - 100,000 mixed gram-positive Sputum 04/28- normal resp andrea Urine pneumococcal and Legionella antigens negative MSK: PT evaluate and treat Access - Peripheral IV's Prophylaxis - GI - pantoprazole - DVT - SCD/ Heparin SQ , Critical care time 30 minutes Ray Montes MD May 12, 2017 14:35
--- NOTE | 2017-05-12 14:51 | GIPROC ---
[facility] [address] [facility]. [facility], [address] COLONOSCOPY PROCEDURE REPORT EXAM DATE: 05/12/2017 PATIENT NAME: Olu Pittman MR #: [id number] BIRTHDATE: 1955 ENDOSCOPIST: Roxanne Green MD ORDER #: [id number] NUCLE[employer] PLANT INSTRUMENT TECHNICIAN: Reji Monteiro and Jami Sullivan STATUS: inpatient INDICATIONS: The patient is a 61 yr old male here for a colonoscopy due to ileus PROCEDURE PERFORMED: colonoscopy with decompression MEDICATIONS: Per Anesthesia and None. PREP QUALITY: poor PREP TYPE:Other: ESTIMATED BLOOD LOSS: None CONSENT: The patient understands the risks and benefits of the procedure and understands that these risks include, but are not limited to: sedation, allergic reaction, infection, perforation and/or bleeding. Alternative means of evaluation and treatment include, among others: physical exam, x-rays, and/or surgical intervention. The patient elects to proceed with this endoscopic procedure. medical equipment was checked for proper function. Hand hygiene and appropriate measures for infection prevention was taken. After the risks, benefits and alternatives of the procedure were thoroughly explained, Informed consent was verified, confirmed and timeout was successfully executed by the treatment team. A digital exam revealed external hemorrhoids, revealed decreased sphincter tone, and revealed a rash The Pentax [id number] endoscope was introduced through the anus and advanced to the cecum, which was identified by both the appendix and ileocecal valve. The instrument was then slowly withdrawn as the colon was fully examined. COLON FINDINGS: Diverticulosis sigmoid porr prep superficial ulcerations in ascending colon and cecum-biopsy with pseudomembranes-c diff decompression. Retroflexion was not performed The scope was then completely withdrawn from the patient and the procedure terminated. ADVERSE EVENTS: There were no complications. IMPRESSIONS: 1. Diverticulosis sigmoid porr prep superficial ulcerations in ascending colon and cecum-biopsy with pseudomembranes-c diff decompression 2. Retroflexion was not performed 3. Revealed external hemorrhoids 4. Revealed decreased sphincter tone 5. Revealed a rash RECOMMENDATIONS: Flagyl, vanco rectal tube id consult if worse surgical consult RECALL: Colonoscopy, pending biopsy results Roxanne Green MD eSigned: Roxanne Green MD 05/12/2017 2:51 PM cc: PATIENT NAME: Olu Pittman MR#: [id number]
--- NOTE | 2017-05-12 14:57 | RADRPT ---
EXAM DATE/TIME: 05/12/2017 14:21 [facility] COMPARISON: CHEST SINGLE AP, May 12, 2017, 3:49. INDICATIONS : Evaluate for central line placement. MEDICAL HISTORY : Chronic obstructive pulmonary disease. Seizures SURGICAL HISTORY : None. ENCOUNTER: Subsequent ACUITY: 1 day PAIN SCORE: Non-responsive. LOCATION: chest FINDINGS: Endotracheal tube is stable in satisfactory position. A nasogastric tube descends to the distal esoph norberto, not quite reaching the stomach.. A right neck central line descends in the SVC. There is no ortiz dence of pneumothorax or other complication of placement. There is consolidative change at the left l donald base obscured left diaphragm and patchy infiltrates elsewhere which appear grossly stable. Ectati c for significant rotation, the cardiac contours are unchanged. CONCLUSION: Satisfactory central line positioning. No pneumothorax. Nasogastric tube does not reach the stomach. Bilateral infiltrates are unchanged. Olu Rodriguez MD on May 12, 2017 at 14:54 Board Certified Radiologist. This report was verified electronically.
--- NOTE | 2017-05-12 18:29 | RADRPT ---
EXAM DATE/TIME: 05/12/2017 17:56 [facility] COMPARISON: ABDOMEN KUB ONLY, May 12, 2017, 6:36. CT ABDOMEN & PELVIS W/O CONTRAST, July 19, 2016, 13:36 . INDICATIONS : Abdominal distention. ORAL CONTRAST: No oral contrast ingested. RADIATION DOSE: 10.49 CTDIvol (mGy) MEDICAL HISTORY : Seizures. SURGICAL HISTORY : Non-responsive. ENCOUNTER: Initial ACUITY: 1 day PAIN SCALE: Non-responsive LOCATION: Bilateral abdomen TECHNIQUE: Volumetric scanning of the abdomen and pelvis was performed. Using automated exposure control and ad justment of the mA and/or kV according to patient size, radiation dose was kept as low as reasonably achievable to obtain optimal diagnostic quality images. DICOM format image data is available electro nically for review and comparison. FINDINGS: There are bilateral moderate pleural effusions, and collapse of and consolidation of the left lower l obe. Findings suggest prior pleurodesis on the left. There is shift of the mediastinum to the left co nsistent with left lower lobe collapse. There is lingular consolidation. There is an endobronchial so ft tissue defect in the left lower lobe bronchus on axial image 4. There is a moderate-sized hiatal h ernia. Young catheter is within the urinary bladder and a rectal tube is noted. There is body wall ed steven and free fluid is seen. Scattered diverticulosis. There is abnormal circumferential bowel wall th ickening involving the ascending colon characteristic of colitis. There is diffuse mild dilatation of small bowel loops identified. There is no discrete transition point. The osseous structures demonstr ate degenerative changes of the spine. Nonobstructing 2.5 mm right upper pole renal calculus. Atheros clerotic calcifications of the aorta and iliac vessels. No acute L4 compression fracture. Nonacute T9 , T8 and T6 compression fractures. CONCLUSION: 1. Left lower lobe collapse and lingular consolidation. Endobronchial soft tissue within the left low er lobe, Mass versus mucus plugging are differential diagnostic considerations. 2. Body wall edema and ascites. 3. Nonobstructing right renal calculus. 4. Colitis with abnormal bowel wall thickening involving the ascending colon, and diffuse small bowel dilatation characteristic of an ileus. Ray Finney MD on May 12, 2017 at 18:23 Board Certified Radiologist. This report was verified electronically.
--- NOTE | 2017-05-12 18:29 | PD.ID.CON ---
History of Present Illness Service ID Consult Requested By Reason for Consult Evaluation and Mment of Sepsis, Pseudomembranous colitis ? Cdiff. Primary Care Physician No Primary Care Physician Diagnoses: History of Present Illness is a 61y CM with PMHx of ETOH abuse, prior hepatic encephalopathy, chronic alcoholism, ETOH withdrawal seizures who presented with weakness, dizziness, and having a fall and not being able to get up, per EMR. He subsequently developed worsening fever and hypotension and went [place] [facility] [place]. He self extubated himself and got reintubated. GI onboard for likely cirrhosis, hiatal hernia, and hyper-ammonia. CT showed heterogenous density liver likely steatosis, small volume free fluid abdomen and pelvis, moderate hiatal hernia. Pt is heavy drinker. Pt was discharged from ER on 04/23 after being seen for hepatic encephalopathy. Hospital course: 04/30 s/p EGD yesterday with shoed esophagitis, gastritis, food impaction in distal esophagus removed. 05/06: Decompressive colonoscopy today. CT abdomen/pelvis last night showed development of gaseous distention of the right and transverse colon with abrupt change in luminal dimension at the splenic flexure. There is a rectal tube in place and cannot differentiate between a focal obstruction/stricture versus decompression from the rectal tube. At the time of my evaluation patient [facility] in the [facility]. Currently on Levophed 8 mics. He has low grade fever but WBC normal. On ventilator with thick yellow secretions. Patient underwent decompressive colonoscopy and was found to have pseudomembranous colitis. Cdiff PCR sent and pending. Patient on oral vanco and Flagyl IV. He just returned from a CT A/P which shows bilateral infiltrates left more than right. ID consulted for evaluation and Mment of Cdiff Colitis. Review of Systems ROS Limitations: Intubated Past Family Social History Allergies: Coded Allergies: No Known Allergies (Verified Allergy, Unknown, 04/27/17) Uncoded Allergies: STEROIDS (Allergy, Unknown, 07/13/14) Past Medical History COPD and tobacco abuse Alcohol abuse History of alcohol withdrawal seizures Past Surgical History Tonsillectomy Reported Medications I attest I obtained, reviewed or updated the home meds and current meds (for name, dose, freq and route). Reported Meds & Active Scripts Active Wheelchair (Device) 1 Mis Mis Ea .XX DIRECTED Lactulose Liq (Lactulose) 10 Gm/15 Ml Soln 30 Ml PO BID Reported Gabapentin 300 Mg Cap 300 Mg PO TID Spiriva Handihaler (Tiotropium Inh) 18 Mcg Cap 18 Mcg INH DAILY 1 capsule = 18 mcg Active Ordered Medications Current Medications Medications (Trade) Dose Ordered Sig/Brenda Route Start Time Stop Time Status Last Admin (Neurontin) 300 mg TID PO 04/27/17 13:00 Future hold 05/12/17 08:26 (Tylenol) 650 mg Q4H PRN PO 04/27/17 12:30 05/11/17 15:59 (Compazine Supp) 25 mg Q12H PRN RECTAL 04/27/17 12:30 (Narcan Inj) 0.4 mg UNSCH PRN IV PUSH 04/27/17 12:30 (Beena-Colace) 1 tab BID PO 04/27/17 21:00 Future hold 05/12/17 08:26 (Milk Of Magnesia Liq) 30 ml Q12H PRN PO 04/27/17 12:30 (Senokot) 17.2 mg Q12H PRN PO 04/27/17 12:30 (Dulcolax Supp) 10 mg DAILY PRN RECTAL 04/27/17 12:30 (Xifaxan) 550 mg BID PO 04/27/17 21:00 05/12/17 08:26 (Catapres) 0.1 mg Q6H PRN PO 04/27/17 12:30 (Habitrol 14 Mg Patch.24 Hr) 1 patch DAILY T-DERMAL 04/28/17 09:00 05/12/17 08:28 Miscellaneous Information 1 DAILY T-DERMAL 04/28/17 09:00 05/12/17 08:28 Miscellaneous Information Patient in critical care unit? Ass... [id number] 04/27/17 17:30 Potassium Chloride 100 ml @ 50 mls/hr Q2H PRN IV 04/28/17 07:15 Potassium Chloride 100 ml @ 50 mls/hr Q2H PRN IV 04/28/17 07:15 05/09/17 11:15 (K-Lyte Cl Eff) 50 meq UNSCH PRN PO 04/28/17 07:15 Potassium Chloride 100 ml @ 25 mls/hr UNSCH PRN IV 04/28/17 07:15 Potassium Chloride 100 ml @ 50 mls/hr Q2H PRN IV 04/28/17 07:15 05/10/17 01:45 Magnesium Sulfate 4 gm/Sodium Chloride 100 ml @ 50 mls/hr UNSCH PRN IV 04/28/17 07:15 (Mag-Ox) 800 mg UNSCH PRN PO 04/28/17 07:15 Magnesium Sulfate 2 gm/Sodium Chloride 100 ml @ 50 mls/hr UNSCH PRN IV 04/28/17 07:15 05/10/17 10:32 (K-Phos) 2,000 mg Q4H PRN PO 04/28/17 07:15 Sodium Phosphate 30 mmol/Sodium Chloride 250 ml @ 42 mls/hr UNSCH PRN IV 04/28/17 07:15 05/10/17 10:31 (K-Phos) 2,000 mg UNSCH PRN PO/TUBE 04/28/17 07:15 Potassium Phosphate 30 mmol/ Sodium Chloride 260 ml @ 42 mls/hr UNSCH PRN IV 04/28/17 07:15 (Peridex 0.12% Liq) 15 ml BID@08,20 MT 04/28/17 20:00 05/12/17 08:00 (Tears Naturale Opth Soln) 1 drop Q8HR EACH EYE 04/28/17 14:00 05/12/17 12:40 (Protonix Inj) 40 mg DAILY IV PUSH 04/28/17 09:30 05/12/17 08:24 (NS Flush) DAILY IVF 04/29/17 15:45 05/12/17 08:29 (NS Flush) UNSCH PRN IVF 04/29/17 15:45 (Vitamin B1) 100 mg DAILY PO 04/30/17 09:15 05/12/17 08:26 (Theragran) 1 tab DAILY PO 04/30/17 09:15 05/12/17 08:26 (Folate) 1 mg DAILY PO 04/30/17 09:15 05/12/17 08:26 (Heparin Inj) 5,000 units Q12HR SQ 05/08/17 21:00 05/11/17 21:01 Dextrose 1,000 ml @ 75 mls/hr [id number] IV 05/09/17 09:45 05/12/17 02:49 (Free Water) 250 ml Q8H G-TUBE 05/10/17 16:00 05/12/17 08:00 (Duoneb Neb) 1 ampule Q6HR NEB NEB 05/11/17 16:00 05/12/17 17:27 (Albuterol Neb) 2.5 mg Q2HR NEB PRN NEB 05/11/17 13:45 (Albumin 5% Inj) 25 gm Q12H IV 05/11/17 14:00 05/12/17 12:26 (Reglan Inj) 10 mg Q8HR IV PUSH 05/12/17 14:00 05/12/17 12:40 Midazolam HCl 100 ml @ 2 mls/hr TITRATE PRN IV 05/12/17 11:45 Dexmedetomidine HCl 200 mcg/ Sodium Chloride 52 ml @ 4.96 mls/hr TITRATE PRN IV 05/12/17 13:15 (NS Flush) DAILY IV FLUSH 05/13/17 09:00 (NS Flush) UNSCH PRN IV FLUSH 05/12/17 14:30 Norepinephrine Bitartrate 4 mg/ Sodium Chloride 250 ml @ 7.5 mls/hr TITRATE PRN IV 05/12/17 14:30 (Brethine Inj) 1 mg UNSCH PRN SQ 05/12/17 14:30 Metronidazole 100 ml @ 100 mls/hr Q6H IV 05/12/17 15:00 (VANCOMYCIN for oral use only) 500 mg QID PO 05/12/17 18:00 Piperacillin Sod/ Tazobactam Sod 100 ml @ 200 mls/hr Q6HR IV 05/12/17 18:30 Linezolid 300 ml @ 300 mls/hr Q12H IV 05/12/17 18:30 UNV Family History could not be obtained. Social History Drinks a fifth of vodka every day recently stopped. smoking. Physical Exam Vital Signs Vital Signs Date Time Temp Pulse Resp B/P (MAP) Pulse Ox O2 Delivery O2 Flow Rate FiO2 05/12/17 18:24 99 100 05/12/17 17:27 100 35 05/12/17 16:00 70 05/12/17 16:00 76 05/12/17 14:00 100 05/12/17 14:00 91 05/12/17 12:00 91 05/12/17 10:05 100 35 05/12/17 10:00 93 05/12/17 09:20 100 35 05/12/17 08:00 35 05/12/17 08:00 97.6 81 17 82/50 (61) 100 05/12/17 08:00 81 05/12/17 06:00 82 05/12/17 04:04 100 35 05/12/17 04:00 84 05/12/17 04:00 98.8 84 15 93/62 (72) 100 05/12/17 04:00 35 05/12/17 02:00 81 05/12/17 01:20 100 35 05/12/17 00:00 80 05/12/17 00:00 98.9 80 13 85/64 (71) 100 05/12/17 00:00 35 05/11/17 22:20 100 35 05/11/17 22:00 82 05/11/17 20:05 100 35 05/11/17 20:00 35 05/11/17 20:00 83 05/11/17 20:00 98.1 83 16 86/52 (63) 100 Physical Exam GENERAL: Obese, well-developed patient. SKIN: No rashes. Ecchymoses. Cool and dry. HEAD: Atraumatic. Normocephalic. No temporal or scalp tenderness. EYES: Pupils equal round and reactive. Extraocular motions intact. ENT: Nose without bleeding, purulent drainage or septal hematoma. Throat without erythema, tonsillar hypertrophy or exudate. Uvula midline. Airway patent. NECK: Intubated. CARDIOVASCULAR: Regular rate and rhythm without murmurs. RESPIRATORY: Clear to auscultation. Breath sounds equal bilaterally. No wheezes , rales, or rhonchi. GASTROINTESTINAL: Abdomen soft, non-tender, slightly distended. MUSCULOSKELETAL: Extremities without clubbing, cyanosis. Anasarca, Pedal edema 3 +. NEUROLOGICAL: Sedated. Non focal exam. Psych could not be assessed. IV line sites with no e.o infection. Laboratory Laboratory Tests Test 05/12/17 04:00 05/12/17 14:47 White Blood Count 8.6 Red Blood Count 2.42 Hemoglobin 8.6 Hematocrit 26.1 Mean Corpuscular Volume 107.9 Mean Corpuscular Hemoglobin 35.4 Mean Corpuscular Hemoglobin Concent 32.9 Red Cell Distribution Width 24.7 Platelet Count 170 Mean Platelet Volume 10.4 Neutrophils (%) (Auto) 73.2 Lymphocytes (%) (Auto) 8.4 Monocytes (%) (Auto) 14.5 Eosinophils (%) (Auto) 3.1 Basophils (%) (Auto) 0.8 Neutrophils # (Auto) 6.3 Lymphocytes # (Auto) 0.7 Monocytes # (Auto) 1.2 Eosinophils # (Auto) 0.3 Basophils # (Auto) 0.1 CBC Comment DIFF FINAL Differential Comment Blood Urea Nitrogen 19 Creatinine 0.72 Random Glucose 97 Total Protein 5.5 Albumin 2.3 Calcium Level 8.1 Phosphorus Level 3.1 Magnesium Level 2.1 Alkaline Phosphatase 91 Aspartate Amino Transf (AST/SGOT) 35 Alanine Aminotransferase (ALT/SGPT) 19 Total Bilirubin 0.8 Sodium Level 138 Potassium Level 3.8 Chloride Level 103 Carbon Dioxide Level 28.8 Anion Gap 6 Estimat Glomerular Filtration Rate 111 Ammonia 42 Date/Time Source Procedure Growth Status 04/27/17 14:15 Blood Peripheral Aerobic Blood Culture - Final NO GROWTH IN 5 DAYS Complete 04/27/17 14:15 Blood Peripheral Anaerobic Blood Culture - Final NO GROWTH IN 5 DAYS Complete 05/08/17 11:00 Bronchial Washings Bronchial Fungal Smear - Final NO FUNGAL ELEMENTS SEEN. Resulted 05/08/17 11:00 Bronchial Washings Bronchial Fungal Culture Pending Resulted 05/06/17 07:50 Urine Catheterized Urine Urine Culture - Final NO GROWTH IN 48 HOURS. Complete Result Diagram: 05/12/17 0400 05/12/17 0400 Imaging Last Impressions Chest X-Ray 05/12/17 0600 Signed Impressions: Service Date/Time: Friday, May 12, 2017 03:49 - CONCLUSION: Upper lobe infiltrate with unchanged left lower lobe infiltrate. Rogerio Harris Jr., MD Abdomen X-Ray 05/12/17 0000 Signed Impressions: Service Date/Time: Friday, May 12, 2017 06:36 - CONCLUSION: 1. Reinsertion of the rectal tube which is coiled within the rectal vault. It may be kinked and not draining well. 2. Persistent gaseous distention of the colon although a slight decrease in the volume of gas. 3. New mildly dilated gas-filled loops of small bowel. Rogerio Harris Jr., MD Chest Ultrasound 05/08/17 0000 Signed Impressions: Service Date/Time: Monday, May 08, 2017 13:01 - CONCLUSION: 1. There is a small left pleural effusion with insufficient volume for thoracentesis at this time. Ronaldo Howell MD Abdomen/Pelvis CT 05/05/17 0600 Signed Impressions: Service Date/Time: Friday, May 05, 2017 18:38 - CONCLUSION: 1. Interval development of gaseous distention of the right and transverse colon with abrupt change in luminal dimension at the splenic flexure. There is a rectal tube in place and cannot differentiate between a focal obstruction/stricture versus decompression from the rectal tube. 2. Increasing consolidation/atelectasis in the left lower lobe and persistent right lower lobe consolidation and bilateral pleural effusions. 3. Stable mild free fluid in the pelvis. Rogerio Gunn MD Abdomen Fluoroscopy 05/01/17 0000 Signed Impressions: Service Date/Time: Monday, May 01, 2017 13:13 - CONCLUSION: Uncomplicated nasogastric tube placement as above. Zain Kumar MD Lower Extremity Ultrasound 04/28/17 0000 Signed Impressions: Service Date/Time: Friday, April 28, 2017 16:47 - CONCLUSION: Negative exam with no evidence of deep venous thrombosis. Johnathon White MD Chest CT 04/28/17 0000 Signed Impressions: Service Date/Time: Friday, April 28, 2017 11:03 - CONCLUSION: 1. Small bilateral pleural effusions with atelectasis in both lower lobes. There is also a focal area of groundglass opacity in the lingula that is nonspecific but could represent an infectious or inflammatory process. 2. Moderate size hiatal hernia with dilated and fluid-filled esophagus suggesting gastroesophageal reflux. The nasogastric tube distal tip is in the distal esophagus and should ideally be advanced into the stomach. Olu Triana MD Head CT 04/27/17 1017 Signed Impressions: Service Date/Time: Thursday, April 27, 2017 11:00 - CONCLUSION: 1. No acute intracranial abnormality. 2. Complete opacification left maxillary sinus. Keagan Shipman MD Renal Ultrasound 04/27/17 0000 Signed Impressions: Service Date/Time: Thursday, April 27, 2017 23:50 - CONCLUSION: Negative renal sonogram. Rogerio Gunn MD Assessment and Plan Assessment and Plan Aspiration Pneumonia (vomiting due to Gaseous distention this am) s/p colonic decompression 05/12/17 and other times in this admission. Ileus s.p decompression Pseudomembranous colitis (r/o cdiff) COPD exacerbation Alcoholism Cirrhosis of liver. Acute metabolic encephalopathy recs Start Zosyn IV (Re:Aspiration in Health care setting) Start Zyvox IV (Re:Aspiration in Health care setting) Send sputum cultures Continue Vanco oral (Re:Cdiff) Continue Flagyl IV (Re:Cdiff) Special Contact C isolation. follow cultures Follow clinically. Margarita CAMPOS MD slot shift manager about todays findings and plan. Aleja Laboy MD May 12, 2017 18:29
[2017-05-12] MEDS: VANCOMYCIN 500 MG VIAL (FOR ORAL USE ONLY) PO SCH ×2 (18:48→20:04)
[2017-05-12] MEDS: metroNIDAZOLE 500 MG INJ 100 ML IV SCH ×2 (18:49→20:05)
[2017-05-12] MEDS: PIPERACIL-TAZO 4.5 GM PREMIX 100 ML IV SCH (19:36)
[2017-05-12] MEDS: LINEZOLID 600 MG PREMIX 300 ML IV SCH (20:05)
[2017-05-12 22:59] LABS: C. DIFF EPI 027 PRESUMPTIVE NEGATIVE (NEGATIVE)
[2017-05-13] VITALS (19 sets, daily range): BP systolic 96–122; BP diastolic 56–62; PULSE 73–94; RESP 17–31; TEMP 98.7–99.4; O2SAT 99–100
[2017-05-13] MEDS: PIPERACIL-TAZO 4.5 GM PREMIX 100 ML IV SCH ×3 (00:44→10:48)
[2017-05-13] MEDS: ALBUMIN HUMAN 5% 25 GM/500 ML BOTTLE IV SCH ×2 (02:00→13:48)
[2017-05-13] MEDS: metroNIDAZOLE 500 MG INJ 100 ML IV SCH ×4 (03:00→20:26)
[2017-05-13] MEDS: MIDAZOLAM 100 MG/100 ML INJ 100 ML IV PRN ×2 (03:22→12:19)
[2017-05-13] MEDS: RESP: ALBUTEROL 2.5 MG/IPRATROPIUM 0.5 MG NEB (SCH) NEB ×4 (03:31→19:23)
[2017-05-13] MEDS: METOCLOPRAMIDE HCL 10 MG/2 ML VIAL IV PUSH SCH ×3 (05:29→20:27)
[2017-05-13] MEDS: ARTIFICIAL TEARS OPTH SOLN 15 ML BTL EACH EYE SCH ×3 (05:29→20:27)
[2017-05-13 05:30] LABS: AUTOMATED NEUTROPHIL # 6.8 TH/MM3 (1.8-7.7); BASOPHIL # 0.1 TH/MM3 (0-0.2); BASOPHIL % 0.7 % (0.0-2.0); EOSINOPHIL # 0.2 TH/MM3 (0-0.4); EOSINOPHIL % 2.5 % (0.0-4.0); HEMATOCRIT 24.3 % (39.0-51.0); HEMO FLAGS DIFF FINAL; LYMPH % 8.2 % (9.0-44.0); LYMPHOCYTE # 0.8 TH/MM3 (1.0-4.8); MEAN CELL VOLUME 105.8 FL (80.0-100.0); MEAN CORPUSCULAR HEMOGLOBIN 35.3 PG (27.0-34.0); MEAN CORPUSCULAR HGB CONC 33.4 % (32.0-36.0); MONO % 15.7 % (0.0-8.0); NEUT % 72.9 % (16.0-70.0); PLATELET COUNT 171 TH/MM3 (150-450); RED CELL DISTRIBUTION WIDTH 24.1 % (11.6-17.2); WHITE BLOOD COUNT 9.3 TH/MM3 (4.0-11.0)
[2017-05-13 05:36] LABS: ALT (GPT) 14 U/L (12-78); AMYLASE 5 U/L (25-115); ANION GAP 8 MEQ/L (5-15); AST (GOT) 22 U/L (15-37); BICARBONATE 26.1 MEQ/L (21.0-32.0); BLOOD UREA NITROGEN 17 MG/DL (7-18); CHLORIDE 100 MEQ/L (98-107); GLOMERULAR FILTRATION RATE 115 ML/MIN (>89); MAGNESIUM 1.8 MG/DL (1.5-2.5); POTASSIUM 3.6 MEQ/L (3.5-5.1); SODIUM (NA) 134 MEQ/L (136-145)
[2017-05-13 05:38] LABS: ALKALINE PHOSPHATASE 74 U/L (45-117)
[2017-05-13] MEDS: NICOTINE 14 MG/24 HR PATCH T-DERMAL SCH (07:58)
[2017-05-13] MEDS: PANTOPRAZOLE SODIUM 40 MG VIAL IV PUSH SCH (07:59)
[2017-05-13] MEDS: MULTIVITAMIN TAB PO SCH (07:59)
[2017-05-13] MEDS: VANCOMYCIN 500 MG VIAL (FOR ORAL USE ONLY) PO SCH (07:59)
[2017-05-13] MEDS: HEPARIN SODIUM - SQ 10,000 UNITS/ML VIAL SQ SCH ×2 (07:59→20:27)
[2017-05-13] MEDS: FREE WATER G-TUBE SCH ×2 (08:00→16:00)
[2017-05-13] MEDS: CHLORHEXIDINE 0.12% (ORAL KIT) 15 ML CUP MT SCH ×2 (08:00→20:00)
[2017-05-13] MEDS: RIFAXIMIN 550 MG TAB PO SCH ×2 (08:00→20:26)
[2017-05-13] MEDS: THIAMINE HCL 100 MG TAB PO SCH (08:01)
[2017-05-13] MEDS: GABAPENTIN 300 MG CAP PO SCH ×3 (08:01→18:23)
[2017-05-13] MEDS: LINEZOLID 600 MG PREMIX 300 ML IV SCH ×2 (08:01→20:26)
[2017-05-13] MEDS: DOCUSATE SODIUM 50 MG/SENNA 8.6 MG TAB PO SCH ×2 (08:01→20:27)
[2017-05-13] MEDS: FOLIC ACID 1 MG TAB PO SCH (08:01)
[2017-05-13] MEDS: SODIUM CHLORIDE 0.9% FLUSH 10 ML FLUSH IVF SCH (08:02)
[2017-05-13] MEDS: SODIUM CHLORIDE 0.9% FLUSH 10 ML FLUSH IV FLUSH SCH (08:02)
[2017-05-13] MEDS: DEXTROSE 5% IN WATE 1000ML INJ 1,000 ML IV SCH (08:02)
[2017-05-13] MEDS: REMOVE OLD PATCH T-DERMAL SCH (08:03)
[2017-05-13] MEDS ORDERED: MIDAZOLAM HCL 2 MG/2 ML VIAL IV PUSH ONE (09:00)
[2017-05-13] MEDS ORDERED: ROCURONIUM INJ 50 MG/5 ML VIAL IV ONE (09:00)
--- NOTE | 2017-05-13 11:44 | HHI.IDPN ---
Subjective Subjective Remarks is a 61y CM with PMHx of ETOH abuse, prior hepatic encephalopathy, chronic alcoholism, ETOH withdrawal seizures who presented with weakness, dizziness, and having a fall and not being able to get up, per EMR. He subsequently developed worsening fever and hypotension and went to [facility] [place] and was intubated. He self extubated himself and got reintubated. GI onboard for likely cirrhosis, hiatal hernia, and hyper-ammonia. CT showed heterogenous density liver likely steatosis, small volume free fluid abdomen and pelvis, moderate hiatal hernia. Pt is heavy drinker. Pt was discharged from ER on 04/23 after being seen for hepatic encephalopathy. Hospital course: 04/30 s/p EGD yesterday with shoed esophagitis, gastritis, food impaction in distal esophagus removed. 05/06: Decompressive colonoscopy today. CT abdomen/pelvis last night showed development of gaseous distention of the right and transverse colon with abrupt change in luminal dimension at the splenic flexure. There is a rectal tube in place and cannot differentiate between a focal obstruction/stricture versus decompression from the rectal tube. At the time of my evaluation patient is in the [facility]. Currently on Levophed 8 mics. He has low grade fever but WBC normal. On ventilator with thick yellow secretions. Patient underwent decompressive colonoscopy and was found to have pseudomembranous colitis. Cdiff PCR sent and pending. Patient on oral vanco and Flagyl IV. He just returned from a CT A/P which shows bilateral infiltrates left more than right. ID consulted for evaluation and Mment of Cdiff Colitis. Overnight events reviewed Low grade fever No rash Stool liquid, dignishield in place. Secretions thick, yellow, freq suctioning. Remains on vent, sedated. On Levophed 2 mics (down from 8 mics) Not on oral meds due to GI issues, N/V yday. Antibiotics Zosyn IV Zyvox IV Flagyl IV Vanco oral. Lines Line sites with no e.o infection Past Medical History COPD and tobacco abuse Alcohol abuse History of alcohol withdrawal seizures Tonsillectomy Allergies: Coded Allergies: No Known Allergies (Verified Allergy, Unknown, 04/27/17) Uncoded Allergies: STEROIDS (Allergy, Unknown, 07/13/14) Objective . Vital Signs Date Time Temp Pulse Resp B/P (MAP) Pulse Ox O2 Delivery O2 Flow Rate FiO2 05/13/17 11:26 100 35 05/13/17 10:00 74 05/13/17 08:00 35 05/13/17 08:00 81 05/13/17 08:00 98.9 81 19 122/59 (80) 99 05/13/17 07:20 100 35 05/13/17 06:14 89 109/65 05/13/17 06:00 89 05/13/17 04:26 100 35 05/13/17 04:22 104/68 05/13/17 04:00 70 05/13/17 04:00 89 05/13/17 04:00 99.0 89 31 101/60 (74) 100 05/13/17 02:00 92 05/13/17 00:44 91 115/61 05/13/17 00:44 100 35 05/13/17 00:00 70 05/13/17 00:00 94 05/13/17 00:00 99.4 94 22 115/56 (75) 100 05/12/17 22:00 94 05/12/17 20:40 100 35 05/12/17 20:00 70 05/12/17 20:00 92 05/12/17 20:00 98.9 92 22 97/57 (70) 100 05/12/17 18:24 99 100 05/12/17 18:00 86 05/12/17 17:27 100 35 05/12/17 16:00 70 05/12/17 16:00 76 05/12/17 14:00 100 05/12/17 14:00 91 05/12/17 12:00 91 05/13/17 05/13/17 05/14/17 15:00 23:00 07:00 Intake Total 400 ml Balance 400 ml IV Total 400 ml . Laboratory Tests Test 05/12/17 04:00 05/13/17 05:00 White Blood Count 8.6 TH/MM3 9.3 TH/MM3 Red Blood Count 2.42 MIL/MM3 2.30 MIL/MM3 Hemoglobin 8.6 GM/DL 8.1 GM/DL Hematocrit 26.1 % 24.3 % Mean Corpuscular Volume 107.9 FL 105.8 FL Mean Corpuscular Hemoglobin 35.4 PG 35.3 PG Mean Corpuscular Hemoglobin Concent 32.9 % 33.4 % Red Cell Distribution Width 24.7 % 24.1 % Platelet Count 170 TH/MM3 171 TH/MM3 Mean Platelet Volume 10.4 FL 10.7 FL Neutrophils (%) (Auto) 73.2 % 72.9 % Lymphocytes (%) (Auto) 8.4 % 8.2 % Monocytes (%) (Auto) 14.5 % 15.7 % Eosinophils (%) (Auto) 3.1 % 2.5 % Basophils (%) (Auto) 0.8 % 0.7 % Neutrophils # (Auto) 6.3 TH/MM3 6.8 TH/MM3 Lymphocytes # (Auto) 0.7 TH/MM3 0.8 TH/MM3 Monocytes # (Auto) 1.2 TH/MM3 1.5 TH/MM3 Eosinophils # (Auto) 0.3 TH/MM3 0.2 TH/MM3 Basophils # (Auto) 0.1 TH/MM3 0.1 TH/MM3 CBC Comment DIFF FINAL DIFF FINAL Differential Comment Laboratory Tests Test 05/12/17 04:00 05/13/17 05:00 Blood Urea Nitrogen 19 MG/DL 17 MG/DL Creatinine 0.72 MG/DL 0.70 MG/DL Random Glucose 97 MG/DL 111 MG/DL Total Protein 5.5 GM/DL 5.3 GM/DL Albumin 2.3 GM/DL 2.3 GM/DL Calcium Level 8.1 MG/DL 7.7 MG/DL Phosphorus Level 3.1 MG/DL 2.7 MG/DL Magnesium Level 2.1 MG/DL 1.8 MG/DL Alkaline Phosphatase 91 U/L 74 U/L Aspartate Amino Transf (AST/SGOT) 35 U/L 22 U/L Alanine Aminotransferase (ALT/SGPT) 19 U/L 14 U/L Total Bilirubin 0.8 MG/DL 1.0 MG/DL Sodium Level 138 MEQ/L 134 MEQ/L Potassium Level 3.8 MEQ/L 3.6 MEQ/L Chloride Level 103 MEQ/L 100 MEQ/L Carbon Dioxide Level 28.8 MEQ/L 26.1 MEQ/L Anion Gap 6 MEQ/L 8 MEQ/L Estimat Glomerular Filtration Rate 111 ML/MIN 115 ML/MIN Ammonia 42 MCMOL/L 45 MCMOL/L Lactic Acid Level 1.3 mmol/L Amylase Level 5 U/L Lipase 33 U/L Microbiology Date/Time Source Procedure Growth Status 05/13/17 05:30 Sputum Endotracheal Gram Stain Pending Received 10/8/17 05:30 Sputum Endotracheal Sputum Culture Pending Received Imaging Last Impressions Chest X-Ray 05/12/17 0600 Signed Impressions: Service Date/Time: Friday, May 12, 2017 03:49 - CONCLUSION: Upper lobe infiltrate with unchanged left lower lobe infiltrate. Rogerio Harris Jr., MD Abdomen/Pelvis CT 05/12/17 0000 Signed Impressions: Service Date/Time: Friday, May 12, 2017 17:56 - CONCLUSION: 1. Left lower lobe collapse and lingular consolidation. Endobronchial soft tissue within the left lower lobe, Mass versus mucus plugging are differential diagnostic considerations. 2. Body wall edema and ascites. 3. Nonobstructing right renal calculus. 4. Colitis with abnormal bowel wall thickening involving the ascending colon, and diffuse small bowel dilatation characteristic of an ileus. Ray Finney MD Abdomen X-Ray 05/12/17 0000 Signed Impressions: Service Date/Time: Friday, May 12, 2017 06:36 - CONCLUSION: 1. Reinsertion of the rectal tube which is coiled within the rectal vault. It may be kinked and not draining well. 2. Persistent gaseous distention of the colon although a slight decrease in the volume of gas. 3. New mildly dilated gas-filled loops of small bowel. Rogerio Harris Jr., MD Chest Ultrasound 05/08/17 0000 Signed Impressions: Service Date/Time: Monday, May 08, 2017 13:01 - CONCLUSION: 1. There is a small left pleural effusion with insufficient volume for thoracentesis at this time. Ronaldo Howell MD Abdomen Fluoroscopy 05/01/17 0000 Signed Impressions: Service Date/Time: Monday, May 01, 2017 13:13 - CONCLUSION: Uncomplicated nasogastric tube placement as above. Zain Kumar MD Lower Extremity Ultrasound 04/28/17 0000 Signed Impressions: Service Date/Time: Friday, April 28, 2017 16:47 - CONCLUSION: Negative exam with no evidence of deep venous thrombosis. Johnathon White MD Chest CT 04/28/17 0000 Signed Impressions: Service Date/Time: Friday, April 28, 2017 11:03 - CONCLUSION: 1. Small bilateral pleural effusions with atelectasis in both lower lobes. There is also a focal area of groundglass opacity in the lingula that is nonspecific but could represent an infectious or inflammatory process. 2. Moderate size hiatal hernia with dilated and fluid-filled esophagus suggesting gastroesophageal reflux. The nasogastric tube distal tip is in the distal esophagus and should ideally be advanced into the stomach. Olu Triana MD Head CT 04/27/17 1017 Signed Impressions: Service Date/Time: Thursday, April 27, 2017 11:00 - CONCLUSION: 1. No acute intracranial abnormality. 2. Complete opacification left maxillary sinus. Keagan Shipman MD Renal Ultrasound 04/27/17 0000 Signed Impressions: Service Date/Time: Thursday, April 27, 2017 23:50 - CONCLUSION: Negative renal sonogram. Rogerio Gunn MD Physical Exam GENERAL: Obese, well-developed patient. SKIN: No rashes. Ecchymoses. Cool and dry. HEAD: Atraumatic. Normocephalic. No temporal or scalp tenderness. EYES: Pupils equal round and reactive. Extraocular motions intact. ENT: Nose without bleeding, purulent drainage or septal hematoma. Throat without erythema, tonsillar hypertrophy or exudate. Uvula midline. Airway patent. NECK: Intubated. CARDIOVASCULAR: Regular rate and rhythm without murmurs. RESPIRATORY: Clear to auscultation. Breath sounds equal bilaterally. No wheezes , rales, or rhonchi. GASTROINTESTINAL: Abdomen soft, non-tender, slightly distended. MUSCULOSKELETAL: Extremities without clubbing, cyanosis. Anasarca, Pedal edema 3 +. NEUROLOGICAL: Sedated. Non focal exam. Psych could not be assessed. IV line sites with no e.o infection. Assessment & Plan Remarks Aspiration Pneumonia (vomiting due to Gaseous distention this am) s/p colonic decompression 05/12/17 and other times in this admission. Ileus s.p decompression Pseudomembranous colitis (r/o cdiff) COPD exacerbation Alcoholism Cirrhosis of liver. Acute metabolic encephalopathy recs DC Zosyn IV Start Cefepime (Re:Aspiration in Health care setting) Continue Flagyl IV (anaerobes and Cdiff coverage). Cdiff can be negative with use of barrier cream used in pericare. Needs IV flagyl as pt had N/V and GI issues yday. Continue Zyvox IV (Re:Aspiration in Health care setting) DC Vanco oral (Re:Cdiff) Plan for bronch today per d/w . follow cultures Follow clinically. D.w [facility] Aleja Butler MD May 13, 2017 11:44
[2017-05-13] MEDS: CEFEPIME INJ 2,000 MG in SODIUM CHLORIDE 0.9% INJ 100 ML IV SCH (12:19)
[2017-05-13] MEDS ORDERED: SODIUM BICARBONATE 8.4% INJ 50 MEQ/50 ML SYR ONE (12:45)
[2017-05-13] MEDS ORDERED: SODIUM BICARBONATE 8.4% INJ 50 ML ONE (12:46)
--- NOTE | 2017-05-13 13:00 | PD.PROCEDR ---
Procedure Note Procedure DATE: 05/13/2017 Fiberoptic bronchoscopy/diagnostic and therapeutic: INDICATION: Left lower lobe mucous plug on CT CONSENT Informed consent for procedure was obtained from healthcare proxy. DESCRIPTION OF THE PROCEDURE The patient was placed in supine position. FiO2 on before meals the ventilator settings 100%. Patient was sedated with Versed drip after a 5 mg bolus and paralyzed with rocuronium 50 mg. I entered ET tube with bronchoscopy. The hoda was sharp. Left lower lobe revealed extremely friable mucosa. Left lower lobe with large mucous plug that's suction to clear with 40 cc sterile saline. Suction trauma was appreciated and 30 cc sodium bicarbonate was infused with cessation of bleeding. Samples were obtained from the left lingula mucous plugs for sampling. No signs of mass or obstruction process. The bronchoscopy was drawn to the hoda and the right upper, superior , middle and lower lobes were evaluated to second subsegment. Extremity lax airway. Was noted. Friable mucosa. Suction with several 10 cc injections until clear. Scope was withdrawn without complication. ESTIMATED BLOOD LOSS: Minimal COMPLICATIONS: No apparent complications. STAT chest x-ray pending at time of dictation Ray Montes MD May 13, 2017 13:00
--- NOTE | 2017-05-13 14:17 | RADRPT ---
EXAM DATE/TIME: 05/13/2017 13:22 [facility] COMPARISON: CHEST SINGLE AP, May 12, 2017, 14:21. INDICATIONS : S/P bronchoscopy. MEDICAL HISTORY : Chronic obstructive pulmonary disease. Seizures. SURGICAL HISTORY : None. ENCOUNTER: Initial ACUITY: 1 day PAIN SCORE: Non-responsive. LOCATION: Bilateral chest FINDINGS: Endotracheal tube and central line are stable in good position. A nasogastric tube reaches the distal esophagus, not quite to the stomach. There is persistent consolidative density in the left lung base and patchy infiltrates elsewhere in the coming for rotation, cardiac contours are grossly stable. CONCLUSION: Stable chest appearance. Nasogastric tube in the distal esophagus Olu Rodriguez MD on May 13, 2017 at 14:14 Board Certified Radiologist. This report was verified electronically.
[2017-05-13 14:27] LABS: BRONCHOALVEOLAR LAVAGE RBC 3080 /MM3; BRONCHOALVEOLAR LAVAGE WBC 580 /MM3
[2017-05-13 14:29] LABS: BRONCHOAVEOLAR EOSINOPHILS 1 %; BRONCHOAVEOLAR LYMPHOCYTES 2 %; BRONCHOAVEOLAR NEUTROPHILS 91 %
[2017-05-13 14:30] LABS: BRONCHOAVEOLAR HISTIOCYTES 6 %
--- NOTE | 2017-05-13 16:57 | HHI.GIFU ---
Subjective Remarks Patient intubated, NG tube camped, rectal tube no stool noted in the collecting bag. (Nimco Pooljoaquim BELCHER) Objective Vitals I&O Vital Signs Date Time Temp Pulse Resp B/P (MAP) Pulse Ox O2 Delivery O2 Flow Rate FiO2 05/13/17 16:00 35 05/13/17 16:00 99.1 73 17 96/57 (70) 99 05/13/17 16:00 73 05/13/17 14:51 100 35 05/13/17 14:00 88 05/13/17 12:46 100 100 05/13/17 12:00 35 05/13/17 12:00 85 05/13/17 12:00 98.7 85 20 101/61 (74) 99 05/13/17 11:26 100 35 05/13/17 10:00 74 05/13/17 08:00 35 05/13/17 08:00 81 05/13/17 08:00 98.9 81 19 122/59 (80) 99 05/13/17 07:20 100 35 05/13/17 06:14 89 109/65 05/13/17 06:00 89 05/13/17 04:26 100 35 05/13/17 04:22 104/68 05/13/17 04:00 70 05/13/17 04:00 89 05/13/17 04:00 99.0 89 31 101/60 (74) 100 05/13/17 02:00 92 05/13/17 00:44 91 115/61 05/13/17 00:44 100 35 05/13/17 00:00 70 05/13/17 00:00 94 05/13/17 00:00 99.4 94 22 115/56 (75) 100 05/12/17 22:00 94 05/12/17 20:40 100 35 05/12/17 20:00 70 05/12/17 20:00 92 05/12/17 20:00 98.9 92 22 97/57 (70) 100 05/12/17 18:24 99 100 05/12/17 18:00 86 05/12/17 17:27 100 35 I/O 10/7/17 10/7/17 10/7/17 10/8/17 10/8/17 10/8/17 07:00 15:00 23:00 07:00 15:00 23:00 Intake Total 1571 ml 2398 ml 1589 ml 1050 ml Output Total 250 ml 2550 ml 350 ml Balance 1321 ml -152 ml 1239 ml 1050 ml IV Total 1571 ml 500 ml 1589 ml 1050 ml Tube Feeding 598 ml Albumin 500 ml Other 800 ml Output Urine Total 200 ml 550 ml 350 ml Stool Total 50 ml Emesis 2000 ml # Bowel Movements 1 Laboratory Laboratory Tests Test 05/13/17 05:00 05/13/17 12:45 White Blood Count 9.3 Red Blood Count 2.30 Hemoglobin 8.1 Hematocrit 24.3 Mean Corpuscular Volume 105.8 Mean Corpuscular Hemoglobin 35.3 Mean Corpuscular Hemoglobin Concent 33.4 Red Cell Distribution Width 24.1 Platelet Count 171 Mean Platelet Volume 10.7 Neutrophils (%) (Auto) 72.9 Lymphocytes (%) (Auto) 8.2 Monocytes (%) (Auto) 15.7 Eosinophils (%) (Auto) 2.5 Basophils (%) (Auto) 0.7 Neutrophils # (Auto) 6.8 Lymphocytes # (Auto) 0.8 Monocytes # (Auto) 1.5 Eosinophils # (Auto) 0.2 Basophils # (Auto) 0.1 CBC Comment DIFF FINAL Differential Comment Blood Urea Nitrogen 17 Creatinine 0.70 Random Glucose 111 Total Protein 5.3 Albumin 2.3 Calcium Level 7.7 Phosphorus Level 2.7 Magnesium Level 1.8 Alkaline Phosphatase 74 Aspartate Amino Transf (AST/SGOT) 22 Alanine Aminotransferase (ALT/SGPT) 14 Total Bilirubin 1.0 Sodium Level 134 Potassium Level 3.6 Chloride Level 100 Carbon Dioxide Level 26.1 Anion Gap 8 Estimat Glomerular Filtration Rate 115 Lactic Acid Level 1.3 Ammonia 45 Amylase Level 5 Lipase 33 Bronchoalveolar Lavage WBC 580 Bronchoalveolar Lavage RBC 3080 Bronchoalveolar Lavage Neutrophils 91 Bronchoalveolar Lavage Lymphocytes 2 Bronchoalveolar Lavage Eosinophils 1 Bronchoalveolar Lavage Histiocytes 6 Bronchoalveolar Lavage Diff Comment Lavage Fluid Total Volume 18.0 Lavage Fluid Total WBC Count 10.440 Date/Time Source Procedure Growth Status 04/27/17 14:15 Blood Peripheral Aerobic Blood Culture - Final NO GROWTH IN 5 DAYS Complete 04/27/17 14:15 Blood Peripheral Anaerobic Blood Culture - Final NO GROWTH IN 5 DAYS Complete 05/13/17 12:45 Bronchial Washings Left Upper Lobe Fungal Smear Pending Received 05/13/17 12:45 Bronchial Washings Left Upper Lobe Fungal Culture Pending Received 05/06/17 07:50 Urine Catheterized Urine Urine Culture - Final NO GROWTH IN 48 HOURS. Complete Imaging Last Impressions Chest X-Ray 05/13/17 0000 Signed Impressions: Service Date/Time: Saturday, May 13, 2017 13:22 - CONCLUSION: Stable chest appearance. Nasogastric tube in the distal esophagus Olu Rodriguez MD Abdomen/Pelvis CT 05/12/17 0000 Signed Impressions: Service Date/Time: Friday, May 12, 2017 17:56 - CONCLUSION: 1. Left lower lobe collapse and lingular consolidation. Endobronchial soft tissue within the left lower lobe, Mass versus mucus plugging are differential diagnostic considerations. 2. Body wall edema and ascites. 3. Nonobstructing right renal calculus. 4. Colitis with abnormal bowel wall thickening involving the ascending colon, and diffuse small bowel dilatation characteristic of an ileus. Ray Finney MD Abdomen X-Ray 05/12/17 0000 Signed Impressions: Service Date/Time: Friday, May 12, 2017 06:36 - CONCLUSION: 1. Reinsertion of the rectal tube which is coiled within the rectal vault. It may be kinked and not draining well. 2. Persistent gaseous distention of the colon although a slight decrease in the volume of gas. 3. New mildly dilated gas-filled loops of small bowel. Rogerio Harris Jr., MD Chest Ultrasound 05/08/17 0000 Signed Impressions: Service Date/Time: Monday, May 08, 2017 13:01 - CONCLUSION: 1. There is a small left pleural effusion with insufficient volume for thoracentesis at this time. Ronaldo Howell MD Abdomen Fluoroscopy 05/01/17 0000 Signed Impressions: Service Date/Time: Monday, May 01, 2017 13:13 - CONCLUSION: Uncomplicated nasogastric tube placement as above. Zain Kumar MD Lower Extremity Ultrasound 04/28/17 0000 Signed Impressions: Service Date/Time: Friday, April 28, 2017 16:47 - CONCLUSION: Negative exam with no evidence of deep venous thrombosis. Johnathon White MD Chest CT 04/28/17 0000 Signed Impressions: Service Date/Time: Friday, April 28, 2017 11:03 - CONCLUSION: 1. Small bilateral pleural effusions with atelectasis in both lower lobes. There is also a focal area of groundglass opacity in the lingula that is nonspecific but could represent an infectious or inflammatory process. 2. Moderate size hiatal hernia with dilated and fluid-filled esophagus suggesting gastroesophageal reflux. The nasogastric tube distal tip is in the distal esophagus and should ideally be advanced into the stomach. Olu Triana MD Head CT 04/27/17 1017 Signed Impressions: Service Date/Time: Thursday, April 27, 2017 11:00 - CONCLUSION: 1. No acute intracranial abnormality. 2. Complete opacification left maxillary sinus. Keagan Shipman MD Renal Ultrasound 04/27/17 0000 Signed Impressions: Service Date/Time: Thursday, April 27, 2017 23:50 - CONCLUSION: Negative renal sonogram. Rogerio Gunn MD Physical Exam HEENT: Normocephalic CHEST: Resp even, mildly labored. Course breath sounds. CARDIAC: RRR ABDOMEN: firm, distended, tympanitic, BS hypoactive. EXTREMITIES: BUE edema VET[employer]AN [employer] REVIEWER: on vent (Yrn,Adoreawjoaquim SUPPORT ENGINEER) Assessment and Plan Plan ASSESSMENT - Colonic ileus. CT Scan abdomen and pelvis with IV contrast (05/12/17)----> left lower lobe collapse and lingular consolidation. endobronchial sot tissue within left lower lobe, mass versus mucus plugging are differential diagnostic considerations. Body wall edema and ascites, nonobstructing renal calculus, colitis with abnormal bowel wall thickening involving the ascending colon, and diffuse small bowel dilatation suggesting ileus . S/P 2 SSE. S/P Relistor S/P Decompressive colonoscopy (05/06/17)----> stool throughout the colon , I did not see any masses, visualization was compromised with stool, decompression colon tube was placed. S/P Decompressive colonoscopy (05/12/17)---> Diverticulosis sigmoid poor prep, superficial ulcerations in ascending colon and cecum-biopsy with, pseudomembranes-c diff Miralax, Lactulose. Stools negative for C-diff - Anemia, macrocytic. hgb with slight drop today, 8.1, no signs of bleeding. S/ P EGD (04/30/17)---> Martinez esophagus, Esophagitis, Gastritis, Foreign body in the distal esophagus. Pathology reactive gastropathy. S/P 2 units RBC, 2 units Platelets. Vitamin B12 1298. PPI - Martinez's Esophagus, Esophagitis, Gastritis. Pathology reactive gastropathy. PPI - Foreign body in distal esophagus, s/p EGD. - Elevated ammonia, acute encephalopathy. Ammonia 45. Lactulose, Xifaxan. - Elevated bilirubin. CT as above. History of ETOH abuse, drinks 1/5 of vodka daily. Hypoalbuminemia with albumin 2.1. Mild coagulopathy. Suspect liver cirrhosis, likely secondary to alcohol, fatty liver disease. - Thrombocytopenia. S/P 2 platelet transfusion. - Sepsis, unclear source. Urine negative for legionella, streptococcus, bcx neg , sputum cx with light growth normal respiratory andrea. CT reveals possible pneumonia. - Respiratory failure, COPD. Pt extubated on Sunday. Mildly labored breathing. - Encephalopathy. ammonia 45 PLAN - Npo - KUB in am - continue bowel regimen - Add lactulose - Cont. Xifaxan - Cont. PPI - Supportive care - Patient seen and examined by Dr. Green and myself and this note is written on her behalf. (Parris Pool) Physician Comments seen, examined agree with above colonoscopy suggesting c diff colitis (Roxanne Green MD) Parris Pool May 13, 2017 16:57 Roxanne Green MD May 13, 2017 19:28
--- NOTE | 2017-05-13 17:20 | HHI.CCPN ---
Subjective Remarks/Hospital Course 61yM with h/o prior hepatic encephalopathy, etoh abuse, tobacco abuse, now admitted with weakness, fever, chills, worsening hypotension. called by hospitalist service overnight for clinical decline despite ivf resuscitation. Patient does complain of flank pain, but denies chest pain, abdominal pain. u/a +. started earlier on vanc/zosyn. has not voided. becoming worseningly agitated. unable to provide any additional information due to altered mental status. 04/28: Chart reviewed. Patient still quite agitated stating "I have to pee" patient has a Young catheter. Complaining of flank pain. Noted renal ultrasound negative. Currently on norepinephrine at 12 mg per minute. 04/29: Resting in bed in no acute distress. Currently on norepinephrine at 7 per minute for vasopressor support. Transfuse 2 units PRBC and 2 pack platelets overnight. Dilutional. Absolutely no signs of active bleeding. 04/30 Patient is sedated with Fentanyl and intubated. On Levophed 5 mics. Afebrile. For EGD today. 05/01 No events overnight. Sedated and intubated. On Levophed 4 mics. s/p EGD yesterday with shoed esophagitis, gastritis, food impaction in distal esophagus removed. 05/02: Afebrile. Off all vasopressors. NG tube advanced by IR yesterday. Feeding to be initiated today. Currently on fentanyl drip 05/03: Remains intubated sedated and not following commands remains on fentanyl infusion. Attempt CPAP trial if patient wakeful enough. Urine output minimal only 300 mL in 24 hours. Will give albumin and Bumex 05/04 Patient is sedated with Fentanyl and intubated. Afebrile. 05/05 Patient was self extubated last night. For possible decompressive colonoscopy today. Afebrile. 05/06 Patient is on 3L oxygen for decompressive colonoscopy today. On Precedex drip for agitation. CT abdomen/pelvis last night showed development of gaseous distention of the right and transverse colon with abrupt change in luminal dimension at the splenic flexure. There is a rectal tube in place and cannot differentiate between a focal obstruction/stricture versus decompression from the rectal tube. 05/07 Patient s/p decompressive colonoscopy last night KUB this morning showed decreased colonic distention. On 4L oxygen. 05/08 Patient was unresponsive on BIPAP this morning and was in resp distress he was subsequently intubated and placed on mechanical ventilation. CXR post intubation showed complete opacification of left hemithorax likely 2nd mucous plug 05/09 Patient is sedated with Fentanyl and intubated. Afebrile. 05/10 Patient remains sedated and intubated. Afebrile. Tolerating tube feeds 05/11: Tolerated PSV trials 3 hours today. Not tolerating tube feeding currently. KUB pending. Positive BM. Decreased urine output noted. 05/12: Lasted 1 hour on PSV trials today. Currently vomiting will be decompressed from above and below per GI today. Afebrile. Central line placed due to persistent hypotension Subjective 05/13: Permission from mother for bronchoscopy today for diagnosis left lower lobe on CAT scan of min/pelvis yesterday. Sample sent. Currently on linezolid , cefepime and Flagyl per infectious disease. Objective Vital Signs Date Time Temp Pulse Resp B/P (MAP) Pulse Ox O2 Delivery O2 Flow Rate FiO2 05/13/17 16:00 35 05/13/17 16:00 99.1 73 17 96/57 (70) 99 05/11/17 07:14 Ventilator Intake and Output 05/13/17 05/13/17 05/14/17 08:00 16:00 00:00 Intake Total 1589 ml 1050 ml Output Total 350 ml Balance 1239 ml 1050 ml Result Diagram: 05/13/17 0500 05/13/17 0500 Other Results Microbiology Date/Time Source Procedure Growth Status 04/27/17 14:15 Blood Peripheral Aerobic Blood Culture - Final NO GROWTH IN 5 DAYS Complete 04/27/17 14:15 Blood Peripheral Anaerobic Blood Culture - Final NO GROWTH IN 5 DAYS Complete 05/13/17 12:45 Bronchial Washings Left Upper Lobe Fungal Smear Pending Received 05/13/17 12:45 Bronchial Washings Left Upper Lobe Fungal Culture Pending Received 05/06/17 07:50 Urine Catheterized Urine Urine Culture - Final NO GROWTH IN 48 HOURS. Complete Imaging Last Impressions Chest X-Ray 05/13/17 0000 Signed Impressions: Service Date/Time: Saturday, May 13, 2017 13:22 - CONCLUSION: Stable chest appearance. Nasogastric tube in the distal esophagus Olu Rodriguez MD Abdomen/Pelvis CT 05/12/17 0000 Signed Impressions: Service Date/Time: Friday, May 12, 2017 17:56 - CONCLUSION: 1. Left lower lobe collapse and lingular consolidation. Endobronchial soft tissue within the left lower lobe, Mass versus mucus plugging are differential diagnostic considerations. 2. Body wall edema and ascites. 3. Nonobstructing right renal calculus. 4. Colitis with abnormal bowel wall thickening involving the ascending colon, and diffuse small bowel dilatation characteristic of an ileus. Ray Finney MD Abdomen X-Ray 05/12/17 0000 Signed Impressions: Service Date/Time: Friday, May 12, 2017 06:36 - CONCLUSION: 1. Reinsertion of the rectal tube which is coiled within the rectal vault. It may be kinked and not draining well. 2. Persistent gaseous distention of the colon although a slight decrease in the volume of gas. 3. New mildly dilated gas-filled loops of small bowel. Rogerio Harris Jr., MD Chest Ultrasound 05/08/17 0000 Signed Impressions: Service Date/Time: Monday, May 08, 2017 13:01 - CONCLUSION: 1. There is a small left pleural effusion with insufficient volume for thoracentesis at this time. Ronaldo Howell MD Abdomen Fluoroscopy 05/01/17 0000 Signed Impressions: Service Date/Time: Monday, May 01, 2017 13:13 - CONCLUSION: Uncomplicated nasogastric tube placement as above. Zain Kumar MD Lower Extremity Ultrasound 04/28/17 0000 Signed Impressions: Service Date/Time: Friday, April 28, 2017 16:47 - CONCLUSION: Negative exam with no evidence of deep venous thrombosis. Johnathon White MD Chest CT 04/28/17 0000 Signed Impressions: Service Date/Time: Friday, April 28, 2017 11:03 - CONCLUSION: 1. Small bilateral pleural effusions with atelectasis in both lower lobes. There is also a focal area of groundglass opacity in the lingula that is nonspecific but could represent an infectious or inflammatory process. 2. Moderate size hiatal hernia with dilated and fluid-filled esophagus suggesting gastroesophageal reflux. The nasogastric tube distal tip is in the distal esophagus and should ideally be advanced into the stomach. Olu Triana MD Head CT 04/27/17 1017 Signed Impressions: Service Date/Time: Thursday, April 27, 2017 11:00 - CONCLUSION: 1. No acute intracranial abnormality. 2. Complete opacification left maxillary sinus. Keagan Shipman MD Renal Ultrasound 04/27/17 0000 Signed Impressions: Service Date/Time: Thursday, April 27, 2017 23:50 - CONCLUSION: Negative renal sonogram. Rogerio Gunn MD Objective Remarks GENERAL: 61 year old male critically ill currently orotracheally intubated SKIN: Warm and dry. No rash HEAD: Normocephalic. EYES: No scleral icterus. Pupils are round 3 mm bilaterally and reactive No injection or drainage. NECK: Supple, trachea midline. No JVD or lymphadenopathy. Orally intubated. Right IJ is clean dry and intact CARDIOVASCULAR: RRR. S1, S2 no S4 without murmur RESPIRATORY: Breath sounds equal bilaterally. No accessory muscle use. GASTROINTESTINAL: Distended. Tenderness to deep palpation. No guarding. No rigidity. Hypoactive bowel sounds appreciated throughout. MUSCULOSKELETAL: No significant peripheral edema Neuro: Cranial nerves II through XII grossly intact. Eyes are currently closed. Withdraws to pain. Date of Insertion: Apr 28, 2017 Line: Central Venous Catheter Side: Right Location: Femoral A/P Assessment and Plan Neuro/Psych: Acute encephalopathy likely secondary to EtOH withdrawal/sepsis/hyperammonia Alcohol dependence Fentanyl infusion discontinued due to likely ileus. Currently on dexmedetomidine for sedation while intubated Goal of RA SS -2 Daily sedation vacation Thiamine, folate and multivitamin daily CT brain 04/27 revealed left maxillary sinusitis otherwise no acute intra- cranial findings Patient does have a history of EtOH withdrawal seizures. Seizure precautions CV: Severe sepsis - Lactic acidosis- cleared Monitor HR and BP keep MAP>65mmHg Started on norepinephrine 05/12 currently at 2 mcg per minute Continue D5 normal saline at 75 cc an hour Resp: VDRF- reintubated 05/08 COPD Ongoing tobaccoism Due to possible mucous plugging left lower lobe on CAT scan 05/12 as post bronchoscopy today with removal of mucous plug. Patient had a CAT thorax scan 04/22 without obstructive tissue mass Continue with vent support ACV 16/550/5/35 keep sat >92% Albuterol/ipratropium aerosols every 6 hours and albuterol aerosols every 2 hours. Dyspnea ICU vent bundle SBT as liudmila. s/p bronch with BAL 05/08: Thick secretions/mucous plug left main sten bronchus suctioned to clear CXR post bronch showed improved aeration left lung. Nicotine patch 14 mg daily. GI: Hyperammonia - Elevated AST Hypoalbuminemia - mild protein calorie malnutrition Hiatal hernia Sigmoid diverticulosis Hepatic steatosis Currently holding tube feeds-Jevity 1.5 at goal 60 cc an hour. Currently on hold due to nausea. On lactulose 30 cc every 6 hours and Xifaxan 550 mg by mouth twice a day for elevated ammonia. Currently 45 CT abdomen/pelvis 05/12 revealed thickening ascending colon/small bowel dilatation/ileus. KUB 05/09: Mild improvements in bowel gas pattern. KUB 05/07: Decreased colonic distention s/p decompressive colonoscopy 05/06: Stool throughout the colon, Decompression colon tube was placed 05/05 CT abdomen/pelvis: showed development of gaseous distention of the right and transverse colon with abrupt change in luminal dimension at the splenic flexure. There is a rectal tube in place and cannot differentiate between a focal obstruction/stricture versus decompression from the rectal tube. For decompressive colonoscopy today. Recta KUB abdomen 05/04 showed severe ileus, cecum dilated to 10 cm s/p EGD 04/30: Esophagitis, gastritis, food impaction in distal esophagus removed. Pantoprazole for GI prophylaxis Docusate sodium/senna 1 tablet twice a day for bowel regimen : Right kidney nonobstructing stone 3 mm Renal ultrasound revealed no hydronephrosis Free water 250ml Q8.. Monitor sodium level. on D5W@75ml/hr Monitor renal function, I/O's, electrolytes replacement per protocol. Will need phos replaceemnt today. Endo: Sliding-scale insulin to maintain euglycemia with Accu-Cheks every 6 hours with low regimen with Novulin R TSH: 3.14 04/28 Heme: Leukocytosis Macrocytic anemia Patient was transfused 2 pack platelets and 2 PRBC 04/28. Follow CBC daily. Monitor trends. ID: Possible C. difficile colitis Aspiration pneumonia Per infectious disease on linezolid, cefepime and metronidazole Off abx(s/p Zosyn 04/27- 05/06)monitor for signs of infections ( Fever, WBC) Afebrile, Follow up on BAL results 05/09 and 05/13- NGTD Pertinent cultures Blood cultures 2 -04/27 -no growth to date Urine culture - 04/27 -50 - 100,000 mixed gram-positive Sputum 04/28- normal resp andrea Urine pneumococcal and Legionella antigens negative MSK: PT evaluate and treat Access -RIJ CVL placed 05/12 Prophylaxis - GI - pantoprazole - DVT - SCD/ Heparin SQ , Critical care time 30 minutes Ray Montes MD May 13, 2017 17:20
[2017-05-13 22:33] LABS: C. DIFF EPI 027 PRESUMPTIVE NEGATIVE (NEGATIVE)
[2017-05-14] VITALS (63 sets, daily range): BP systolic 95–141; BP diastolic 55–97; PULSE 69–94; RESP 15–39; TEMP 97.6–98.9; O2SAT 99–100
[2017-05-14] MEDS: ALBUMIN HUMAN 5% 25 GM/500 ML BOTTLE IV SCH ×2 (01:11→15:03)
[2017-05-14] MEDS: metroNIDAZOLE 500 MG INJ 100 ML IV SCH ×4 (01:12→21:00)
[2017-05-14] MEDS: MIDAZOLAM 100 MG/100 ML INJ 100 ML IV PRN (01:12)
[2017-05-14] MEDS: RESP: ALBUTEROL 2.5 MG/IPRATROPIUM 0.5 MG NEB (SCH) NEB ×3 (03:01→19:33)
[2017-05-14 05:30] LABS: AUTOMATED NEUTROPHIL # 5.7 TH/MM3 (1.8-7.7); BASOPHIL % 0.4 % (0.0-2.0); EOSINOPHIL # 0.2 TH/MM3 (0-0.4); EOSINOPHIL % 2.9 % (0.0-4.0); HEMO FLAGS DIFF FINAL; LYMPH % 8.2 % (9.0-44.0); LYMPHOCYTE # 0.6 TH/MM3 (1.0-4.8); MEAN CELL VOLUME 105.6 FL (80.0-100.0); MEAN CORPUSCULAR HEMOGLOBIN 35.1 PG (27.0-34.0); MEAN CORPUSCULAR HGB CONC 33.3 % (32.0-36.0); MONO % 16.1 % (0.0-8.0); NEUT % 72.4 % (16.0-70.0); PLATELET COUNT 157 TH/MM3 (150-450); RED BLOOD COUNT 2.18 MIL/MM3 (4.50-5.90); RED CELL DISTRIBUTION WIDTH 23.9 % (11.6-17.2); WHITE BLOOD COUNT 7.8 TH/MM3 (4.0-11.0)
[2017-05-14 05:50] LABS: BICARBONATE 25.9 MEQ/L (21.0-32.0); MAGNESIUM 1.6 MG/DL (1.5-2.5); POTASSIUM 3.1 MEQ/L (3.5-5.1)
[2017-05-14] MEDS: METOCLOPRAMIDE HCL 10 MG/2 ML VIAL IV PUSH SCH ×3 (05:56→22:00)
[2017-05-14] MEDS: DEXTROSE 5% IN WATE 1000ML INJ 1,000 ML IV SCH ×2 (05:56→09:45)
[2017-05-14] MEDS: ARTIFICIAL TEARS OPTH SOLN 15 ML BTL EACH EYE SCH ×3 (05:56→22:00)
--- NOTE | 2017-05-14 05:56 | RADRPT ---
EXAM DATE/TIME: 05/14/2017 04:05 [facility] COMPARISON: ABDOMEN KUB ONLY, May 12, 2017, 6:36. CT ABDOMEN & PELVIS W/O CONTRAST, May 12, 2017, 17:56. INDICATIONS : Abdominal distention. MEDICAL HISTORY : Chronic obstructive pulmonary disease. Seizures SURGICAL HISTORY : Tonsillectomy. ENCOUNTER: Subsequent ACUITY: 3 weeks PAIN SCORE: Non-responsive. LOCATION: Bilateral Abdomen FINDINGS: Nasogastric tube tip is seen at the upper aspect of the radiograph. A rectal tube is present. There i s air present in occasional minimally distended bowel loops. No suspicious calcific densities. Degene rative changes noted in the spine and hips. CONCLUSION: Improved bowel gas pattern Olu Rodriguez MD on May 14, 2017 at 5:53 Board Certified Radiologist. This report was verified electronically.
[2017-05-14] MEDS: POTASSIUM CHLOR 40 MEQ PREMIX 100 ML IV PRN ×2 (06:47→08:05)
[2017-05-14] MEDS: FREE WATER G-TUBE SCH ×4 (08:00→22:16)
[2017-05-14] MEDS: LINEZOLID 600 MG PREMIX 300 ML IV SCH ×2 (08:03→20:00)
[2017-05-14] MEDS: CHLORHEXIDINE 0.12% (ORAL KIT) 15 ML CUP MT SCH ×2 (08:03→20:00)
[2017-05-14] MEDS: SODIUM CHLORIDE 0.9% FLUSH 10 ML FLUSH IV FLUSH SCH (08:04)
[2017-05-14] MEDS: DOCUSATE SODIUM 50 MG/SENNA 8.6 MG TAB PO SCH ×2 (08:05→21:00)
[2017-05-14] MEDS: RIFAXIMIN 550 MG TAB PO SCH ×2 (08:05→21:00)
[2017-05-14] MEDS: FOLIC ACID 1 MG TAB PO SCH (08:05)
[2017-05-14] MEDS: PANTOPRAZOLE SODIUM 40 MG VIAL IV PUSH SCH (08:05)
[2017-05-14] MEDS: MULTIVITAMIN TAB PO SCH (08:05)
[2017-05-14] MEDS: THIAMINE HCL 100 MG TAB PO SCH (08:05)
[2017-05-14] MEDS: LACTULOSE SYRUP 20 GM/30 ML CUP PO SCH (08:05)
[2017-05-14] MEDS: HEPARIN SODIUM - SQ 10,000 UNITS/ML VIAL SQ SCH ×2 (08:06→21:00)
[2017-05-14] MEDS: NICOTINE 14 MG/24 HR PATCH T-DERMAL SCH (08:09)
[2017-05-14] MEDS: REMOVE OLD PATCH T-DERMAL SCH (08:12)
--- NOTE | 2017-05-14 08:24 | HHI.IDPN ---
Subjective Subjective Remarks is a 61y CM with PMHx of ETOH abuse, prior hepatic encephalopathy, chronic alcoholism, ETOH withdrawal seizures who presented with weakness, dizziness, and having a fall and not being able to get up, per EMR. He subsequently developed worsening fever and hypotension [place] [facility] [place] He self extubated himself and got reintubated. GI onboard for likely cirrhosis, hiatal hernia, and hyper-ammonia. CT showed heterogenous density liver likely steatosis, small volume free fluid abdomen and pelvis, moderate hiatal hernia. Pt is heavy drinker. Pt was discharged from ER on 04/23 after being seen for hepatic encephalopathy. Hospital course: 04/30 s/p EGD yesterday with shoed esophagitis, gastritis, food impaction in distal esophagus removed. 05/06: Decompressive colonoscopy today. CT abdomen/pelvis last night showed development of gaseous distention of the right and transverse colon with abrupt change in luminal dimension at the splenic flexure. There is a rectal tube in place and cannot differentiate between a focal obstruction/stricture versus decompression from the rectal tube. At the time of my evaluation patient is in the [facility]. Currently on Levophed 8 mics. He has low grade fever but WBC normal. On ventilator with thick yellow secretions. Patient underwent decompressive colonoscopy and was found to have pseudomembranous colitis. Cdiff PCR sent and pending. Patient on oral vanco and Flagyl IV. He just returned from a CT A/P which shows bilateral infiltrates left more than right. ID consulted for evaluation and Mment of Cdiff Colitis. Overnight events reviewed No fever No rash Stool liquid, dignishield to be placed. Secretions thick, yellow, freq suctioning. Remains on vent, sedated. UO ok. s/p bronch yday Antibiotics Cefepime IV Zyvox IV Flagyl IV Lines Line sites with no e.o infection Past Medical History COPD and tobacco abuse Alcohol abuse History of alcohol withdrawal seizures Tonsillectomy Allergies: Coded Allergies: No Known Allergies (Verified Allergy, Unknown, 04/27/17) Uncoded Allergies: STEROIDS (Allergy, Unknown, 07/13/14) Objective . Vital Signs Date Time Temp Pulse Resp B/P (MAP) Pulse Ox O2 Delivery O2 Flow Rate FiO2 05/14/17 07:53 100 35 05/14/17 06:00 77 05/14/17 04:11 100 35 05/14/17 04:00 98.6 80 15 110/74 (86) 100 05/14/17 04:00 80 05/14/17 04:00 35 05/14/17 02:00 78 05/14/17 01:20 118/72 05/14/17 00:24 100 35 05/14/17 00:00 98.9 81 24 101/57 (72) 100 05/14/17 00:00 35 05/14/17 00:00 81 05/13/17 22:00 81 05/13/17 20:00 80 05/13/17 20:00 35 05/13/17 20:00 98.7 80 17 104/62 (76) 100 05/13/17 19:24 100 35 05/13/17 18:00 76 05/13/17 16:00 35 05/13/17 16:00 99.1 73 17 96/57 (70) 99 05/13/17 16:00 73 05/13/17 14:51 100 35 05/13/17 14:00 88 05/13/17 12:46 100 100 05/13/17 12:00 35 05/13/17 12:00 85 05/13/17 12:00 98.7 85 20 101/61 (74) 99 05/13/17 11:26 100 35 05/13/17 10:00 74 . Laboratory Tests Test 05/13/17 05:00 05/14/17 04:10 White Blood Count 9.3 TH/MM3 7.8 TH/MM3 Red Blood Count 2.30 MIL/MM3 2.18 MIL/MM3 Hemoglobin 8.1 GM/DL 7.7 GM/DL Hematocrit 24.3 % 23.0 % Mean Corpuscular Volume 105.8 FL 105.6 FL Mean Corpuscular Hemoglobin 35.3 PG 35.1 PG Mean Corpuscular Hemoglobin Concent 33.4 % 33.3 % Red Cell Distribution Width 24.1 % 23.9 % Platelet Count 171 TH/MM3 157 TH/MM3 Mean Platelet Volume 10.7 FL 11.3 FL Neutrophils (%) (Auto) 72.9 % 72.4 % Lymphocytes (%) (Auto) 8.2 % 8.2 % Monocytes (%) (Auto) 15.7 % 16.1 % Eosinophils (%) (Auto) 2.5 % 2.9 % Basophils (%) (Auto) 0.7 % 0.4 % Neutrophils # (Auto) 6.8 TH/MM3 5.7 TH/MM3 Lymphocytes # (Auto) 0.8 TH/MM3 0.6 TH/MM3 Monocytes # (Auto) 1.5 TH/MM3 1.3 TH/MM3 Eosinophils # (Auto) 0.2 TH/MM3 0.2 TH/MM3 Basophils # (Auto) 0.1 TH/MM3 0.0 TH/MM3 CBC Comment DIFF FINAL DIFF FINAL Differential Comment Laboratory Tests Test 05/13/17 05:00 05/14/17 04:10 Blood Urea Nitrogen 17 MG/DL 13 MG/DL Creatinine 0.70 MG/DL 0.56 MG/DL Random Glucose 111 MG/DL 103 MG/DL Total Protein 5.3 GM/DL Albumin 2.3 GM/DL Calcium Level 7.7 MG/DL 7.7 MG/DL Phosphorus Level 2.7 MG/DL 2.6 MG/DL Magnesium Level 1.8 MG/DL 1.6 MG/DL Alkaline Phosphatase 74 U/L Aspartate Amino Transf (AST/SGOT) 22 U/L Alanine Aminotransferase (ALT/SGPT) 14 U/L Total Bilirubin 1.0 MG/DL Sodium Level 134 MEQ/L 133 MEQ/L Potassium Level 3.6 MEQ/L 3.1 MEQ/L Chloride Level 100 MEQ/L 99 MEQ/L Carbon Dioxide Level 26.1 MEQ/L 25.9 MEQ/L Anion Gap 8 MEQ/L 8 MEQ/L Estimat Glomerular Filtration Rate 115 ML/MIN 149 ML/MIN Lactic Acid Level 1.3 mmol/L Ammonia 45 MCMOL/L Amylase Level 5 U/L Lipase 33 U/L Microbiology Date/Time Source Procedure Growth Status 05/13/17 12:45 Bronchial Washings Left Upper Lobe Fungal Smear Pending Received 05/13/17 12:45 Bronchial Washings Left Upper Lobe Fungal Culture Pending Received 05/13/17 12:45 Bronchial Washings Left Lower Lobe Acid Fast Stain Pending Received 05/13/17 12:45 Bronchial Washings Left Lower Lobe Mycobacterial Culture Pending Received 05/13/17 12:45 Bronchial Washings Left Lower Lobe Gram Stain - Final Resulted 05/13/17 12:45 Bronchial Washings Left Lower Lobe Bronchial Culture Pending Resulted 05/13/17 05:30 Sputum Endotracheal Gram Stain - Final Resulted 05/13/17 05:30 Sputum Endotracheal Sputum Culture Pending Resulted Imaging Last Impressions Chest X-Ray 05/12/17 0600 Signed Impressions: Service Date/Time: Friday, May 12, 2017 03:49 - CONCLUSION: Upper lobe infiltrate with unchanged left lower lobe infiltrate. Rogerio Harris Jr., MD Abdomen/Pelvis CT 05/12/17 0000 Signed Impressions: Service Date/Time: Friday, May 12, 2017 17:56 - CONCLUSION: 1. Left lower lobe collapse and lingular consolidation. Endobronchial soft tissue within the left lower lobe, Mass versus mucus plugging are differential diagnostic considerations. 2. Body wall edema and ascites. 3. Nonobstructing right renal calculus. 4. Colitis with abnormal bowel wall thickening involving the ascending colon, and diffuse small bowel dilatation characteristic of an ileus. Ray Finney MD Abdomen X-Ray 05/12/17 0000 Signed Impressions: Service Date/Time: Friday, May 12, 2017 06:36 - CONCLUSION: 1. Reinsertion of the rectal tube which is coiled within the rectal vault. It may be kinked and not draining well. 2. Persistent gaseous distention of the colon although a slight decrease in the volume of gas. 3. New mildly dilated gas-filled loops of small bowel. Rogerio Harris Jr., MD Chest Ultrasound 05/08/17 0000 Signed Impressions: Service Date/Time: Monday, May 08, 2017 13:01 - CONCLUSION: 1. There is a small left pleural effusion with insufficient volume for thoracentesis at this time. Ronaldo Howell MD Abdomen Fluoroscopy 05/01/17 0000 Signed Impressions: Service Date/Time: Monday, May 01, 2017 13:13 - CONCLUSION: Uncomplicated nasogastric tube placement as above. Zain Kumar MD Lower Extremity Ultrasound 04/28/17 0000 Signed Impressions: Service Date/Time: Friday, April 28, 2017 16:47 - CONCLUSION: Negative exam with no evidence of deep venous thrombosis. Johnathon White MD Chest CT 04/28/17 0000 Signed Impressions: Service Date/Time: Friday, April 28, 2017 11:03 - CONCLUSION: 1. Small bilateral pleural effusions with atelectasis in both lower lobes. There is also a focal area of groundglass opacity in the lingula that is nonspecific but could represent an infectious or inflammatory process. 2. Moderate size hiatal hernia with dilated and fluid-filled esophagus suggesting gastroesophageal reflux. The nasogastric tube distal tip is in the distal esophagus and should ideally be advanced into the stomach. Olu Triana MD Head CT 04/27/17 1017 Signed Impressions: Service Date/Time: Thursday, April 27, 2017 11:00 - CONCLUSION: 1. No acute intracranial abnormality. 2. Complete opacification left maxillary sinus. Keagan Shipman MD Renal Ultrasound 04/27/17 0000 Signed Impressions: Service Date/Time: Thursday, April 27, 2017 23:50 - CONCLUSION: Negative renal sonogram. Rogerio Gunn MD Physical Exam GENERAL: Obese, well-developed patient. SKIN: No rashes. Ecchymoses. Cool and dry. HEAD: Atraumatic. Normocephalic. No temporal or scalp tenderness. EYES: Pupils equal round and reactive. Extraocular motions intact. ENT: Nose without bleeding, purulent drainage or septal hematoma. Throat without erythema, tonsillar hypertrophy or exudate. Uvula midline. Airway patent. NECK: Intubated. CARDIOVASCULAR: Regular rate and rhythm without murmurs. RESPIRATORY: Clear to auscultation. Breath sounds equal bilaterally. No wheezes , rales, or rhonchi. GASTROINTESTINAL: Abdomen soft, non-tender, slightly distended. MUSCULOSKELETAL: Extremities without clubbing, cyanosis. Anasarca, Pedal edema 3 +. NEUROLOGICAL: Sedated. Non focal exam. Psych could not be assessed. IV line sites with no e.o infection. Assessment & Plan Remarks Aspiration Pneumonia (vomiting due to Gaseous distention this am) s/p colonic decompression 05/12/17 and other times in this admission. Ileus s.p decompression Pseudomembranous colitis (r/o cdiff) COPD exacerbation Alcoholism Cirrhosis of liver. Acute metabolic encephalopathy recs Continue Cefepime (Re:Aspiration in Health care setting) Continue Flagyl IV (anaerobes and Cdiff coverage). Cdiff can be negative with use of barrier cream used in pericare. Needs IV flagyl as pt had N/V and GI issues yday. Continue Zyvox IV (Re:Aspiration in Health care setting) Follow bronch cultures. follow cultures Follow clinically. Aleja Hdez RN, MD May 14, 2017 08:24
[2017-05-14] MEDS: SODIUM CHLORIDE 0.9% FLUSH 10 ML FLUSH IVF SCH (09:00)
[2017-05-14] MEDS: GABAPENTIN 300 MG CAP PO SCH ×3 (09:16→17:14)
--- NOTE | 2017-05-14 10:51 | RADRPT ---
EXAM DATE/TIME: 05/14/2017 08:53 [place] COMPARISON: ABDOMEN KUB ONLY, May 12, 2017, 6:36. ABDOMEN KUB ONLY, May 14, 2017, 4:05. INDICATIONS : NG tube placement. MEDICAL HISTORY : None. SURGICAL HISTORY : None. ENCOUNTER: Initial ACUITY: 2 weeks PAIN SCORE: Non-responsive. LOCATION: Abdomen. FINDINGS: Stable NGT with tip in the proximal stomach. Several additional loops of minimally distended small aminta wel are demonstrated in the left abdomen. No gross free air or pneumatosis. Remainder of the exam is unchanged. CONCLUSION: 1. Stable suction type NGT with tip in the very proximal stomach. 2. Slightly increased small bowel distention in comparison to yesterday's exam although this remains significantly improved from prior radiograph. Ronaldo Howell MD on May 14, 2017 at 10:47 Board Certified Radiologist. This report was verified electronically.
[2017-05-14] MEDS: CEFEPIME INJ 2,000 MG in SODIUM CHLORIDE 0.9% INJ 100 ML IV SCH ×3 (12:11)
--- NOTE | 2017-05-14 13:46 | HHI.CCPN ---
Subjective Remarks/Hospital Course 61yM with h/o prior hepatic encephalopathy, etoh abuse, tobacco abuse, now admitted with weakness, fever, chills, worsening hypotension. called by hospitalist service overnight for clinical decline despite ivf resuscitation. Patient does complain of flank pain, but denies chest pain, abdominal pain. u/a +. started earlier on vanc/zosyn. has not voided. becoming worseningly agitated. unable to provide any additional information due to altered mental status. 04/28: Chart reviewed. Patient still quite agitated stating "I have to pee" patient has a Young catheter. Complaining of flank pain. Noted renal ultrasound negative. Currently on norepinephrine at 12 mg per minute. 04/29: Resting in bed in no acute distress. Currently on norepinephrine at 7 per minute for vasopressor support. Transfuse 2 units PRBC and 2 pack platelets overnight. Dilutional. Absolutely no signs of active bleeding. 04/30 Patient is sedated with Fentanyl and intubated. On Levophed 5 mics. Afebrile. For EGD today. 05/01 No events overnight. Sedated and intubated. On Levophed 4 mics. s/p EGD yesterday with shoed esophagitis, gastritis, food impaction in distal esophagus removed. 05/02: Afebrile. Off all vasopressors. NG tube advanced by IR yesterday. Feeding to be initiated today. Currently on fentanyl drip 05/03: Remains intubated sedated and not following commands remains on fentanyl infusion. Attempt CPAP trial if patient wakeful enough. Urine output minimal only 300 mL in 24 hours. Will give albumin and Bumex 05/04 Patient is sedated with Fentanyl and intubated. Afebrile. 05/05 Patient was self extubated last night. For possible decompressive colonoscopy today. Afebrile. 05/06 Patient is on 3L oxygen for decompressive colonoscopy today. On Precedex drip for agitation. CT abdomen/pelvis last night showed development of gaseous distention of the right and transverse colon with abrupt change in luminal dimension at the splenic flexure. There is a rectal tube in place and cannot differentiate between a focal obstruction/stricture versus decompression from the rectal tube. 05/07 Patient s/p decompressive colonoscopy last night KUB this morning showed decreased colonic distention. On 4L oxygen. 05/08 Patient was unresponsive on BIPAP this morning and was in resp distress he was subsequently intubated and placed on mechanical ventilation. CXR post intubation showed complete opacification of left hemithorax likely 2nd mucous plug 05/09 Patient is sedated with Fentanyl and intubated. Afebrile. 05/10 Patient remains sedated and intubated. Afebrile. Tolerating tube feeds 05/11: Tolerated PSV trials 3 hours today. Not tolerating tube feeding currently. KUB pending. Positive BM. Decreased urine output noted. 05/12: Lasted 1 hour on PSV trials today. Currently vomiting will be decompressed from above and below per GI today. Afebrile. Central line placed due to persistent hypotension Subjective 05/13: Permission from mother for bronchoscopy today for diagnosis left lower lobe on CAT scan of min/pelvis yesterday. Sample sent. Currently on linezolid , cefepime and Flagyl per infectious disease. 05/14: Patient remains intubated sedated, on sedation hold do not follow commands , but moving extremities. Initially intubated 04/28, self extubated 05/05, Re intubated for mucus plugging, AMS on 05/07 night. Combined vent day 14, mental status will not permit extubation. Copious yellow ETT secretions. Objective Vital Signs Date Time Temp Pulse Resp B/P (MAP) Pulse Ox O2 Delivery O2 Flow Rate FiO2 05/14/17 12:04 100 35 05/14/17 06:00 77 05/14/17 04:00 98.6 15 110/74 (86) 05/11/17 07:14 Ventilator Intake and Output 05/14/17 05/14/17 05/14/17 07:59 15:59 23:59 Intake Total 1859 ml Output Total 50 ml Balance 1809 ml Result Diagram: 05/14/17 0410 05/14/17 0410 Imaging Last Impressions Chest X-Ray 05/13/17 0000 Signed Impressions: Service Date/Time: Saturday, May 13, 2017 13:22 - CONCLUSION: Stable chest appearance. Nasogastric tube in the distal esophagus Olu Rodriguez MD Abdomen/Pelvis CT 05/12/17 0000 Signed Impressions: Service Date/Time: Friday, May 12, 2017 17:56 - CONCLUSION: 1. Left lower lobe collapse and lingular consolidation. Endobronchial soft tissue within the left lower lobe, Mass versus mucus plugging are differential diagnostic considerations. 2. Body wall edema and ascites. 3. Nonobstructing right renal calculus. 4. Colitis with abnormal bowel wall thickening involving the ascending colon, and diffuse small bowel dilatation characteristic of an ileus. Ray Finney MD Abdomen X-Ray 05/12/17 0000 Signed Impressions: Service Date/Time: Friday, May 12, 2017 06:36 - CONCLUSION: 1. Reinsertion of the rectal tube which is coiled within the rectal vault. It may be kinked and not draining well. 2. Persistent gaseous distention of the colon although a slight decrease in the volume of gas. 3. New mildly dilated gas-filled loops of small bowel. Rogerio Harris Jr., MD Chest Ultrasound 05/08/17 0000 Signed Impressions: Service Date/Time: Monday, May 08, 2017 13:01 - CONCLUSION: 1. There is a small left pleural effusion with insufficient volume for thoracentesis at this time. Ronaldo Howell MD Abdomen Fluoroscopy 05/01/17 0000 Signed Impressions: Service Date/Time: Monday, May 01, 2017 13:13 - CONCLUSION: Uncomplicated nasogastric tube placement as above. Zain Kumar MD Lower Extremity Ultrasound 04/28/17 0000 Signed Impressions: Service Date/Time: Friday, April 28, 2017 16:47 - CONCLUSION: Negative exam with no evidence of deep venous thrombosis. Johnathon White MD Chest CT 04/28/17 0000 Signed Impressions: Service Date/Time: Friday, April 28, 2017 11:03 - CONCLUSION: 1. Small bilateral pleural effusions with atelectasis in both lower lobes. There is also a focal area of groundglass opacity in the lingula that is nonspecific but could represent an infectious or inflammatory process. 2. Moderate size hiatal hernia with dilated and fluid-filled esophagus suggesting gastroesophageal reflux. The nasogastric tube distal tip is in the distal esophagus and should ideally be advanced into the stomach. Olu Triana MD Head CT 04/27/17 1017 Signed Impressions: Service Date/Time: Thursday, April 27, 2017 11:00 - CONCLUSION: 1. No acute intracranial abnormality. 2. Complete opacification left maxillary sinus. Keagan Shipman MD Renal Ultrasound 04/27/17 0000 Signed Impressions: Service Date/Time: Thursday, April 27, 2017 23:50 - CONCLUSION: Negative renal sonogram. Rogerio Gunn MD Objective Remarks GENERAL: 61 year old male critically ill currently orotracheally intubated SKIN: Warm and dry. No rash HEAD: Normocephalic. EYES: No scleral icterus. Pupils are round 3 mm bilaterally and reactive No injection or drainage. ENT: Critically intubated. Large amount of ET tube secretions NECK: Supple, trachea midline. No JVD or lymphadenopathy. Right IJ is clean dry and intact CARDIOVASCULAR: RRR. S1, S2 no S4 without murmur RESPIRATORY: Breath sounds equal bilaterally. No accessory muscle use. Basilar crackles GASTROINTESTINAL: Distended. Tenderness to deep palpation. No guarding. No rigidity. Hypoactive bowel sounds appreciated throughout. MUSCULOSKELETAL: No significant peripheral edema Neuro: Intubated sedated. Eyes are currently closed. Withdraws to pain. Date of Insertion: Apr 28, 2017 Line: Central Venous Catheter Side: Right Location: Femoral A/P Assessment and Plan Neuro/Psych: Acute encephalopathy likely secondary to EtOH withdrawal/sepsis/hyperammonia Alcohol dependence Fentanyl infusion discontinued due to likely ileus. DC Versed and start dexmedetomidine for sedation to facilitate ventilator weaning Goal of RA SS -0. Daily sedation vacation Thiamine, folate and multivitamin daily CT brain 04/27 revealed left maxillary sinusitis otherwise no acute intra- cranial findings Patient does have a history of EtOH withdrawal seizures. Seizure precautions CV: Severe sepsis - Lactic acidosis- cleared Monitor HR and BP keep MAP>65mmHg Norepinephrine as needed to keep map above 65 DC D5 normal saline at 75 cc an hour Resp: Acute respiratory failure- intubated 04/28, self extubated 05/05 reintubated 05/08 COPD Ongoing tobaccoism Due to possible mucous plugging left lower lobe on CAT scan 05/12. s/p bronchoscopy 05/13 with removal of mucous plug. Patient had a CT thorax scan 04/22 without obstructive tissue mass Continue with vent support ACV 16/550/5/35 keep sat >92% Albuterol/ipratropium aerosols every 6 hours and albuterol aerosols every 2 hours. Dyspnea ICU vent bundle. SBT as liudmila. Combined vent day 14. If not extubated in 24 hours proceed with trach s/p bronch with BAL 10/3: Thick secretions/mucous plug left main stem bronchus suctioned to clear CXR post bronch showed improved aeration left lung. Nicotine patch 14 mg daily. GI: Hyperammonemia Ileus Elevated AST Hypoalbuminemia- mild protein calorie malnutrition Hiatal hernia Sigmoid diverticulosis Hepatic steatosis Currently holding tube feeds-Jevity 1.5 at goal 60 cc an hour. Currently on hold due to nausea. On lactulose 30 cc every 6 hours and Xifaxan 550 mg by mouth twice a day for elevated ammonia. CT abdomen/pelvis 05/12 revealed thickening ascending colon/small bowel dilatation/ileus. KUB 05/14 Improving bowel distention KUB 05/09: Mild improvements in bowel gas pattern. KUB 05/07: Decreased colonic distention s/p decompressive colonoscopy 05/06: Stool throughout the colon, Decompression colon tube was placed 05/05 CT abdomen/pelvis: showed development of gaseous distention of the right and transverse colon with abrupt change in luminal dimension at the splenic flexure. There is a rectal tube in place and cannot differentiate between a focal obstruction/stricture versus decompression from the rectal tube. For decompressive colonoscopy today. Recta KUB abdomen 05/04 showed severe ileus, cecum dilated to 10 cm s/p EGD 04/30: Esophagitis, gastritis, food impaction in distal esophagus removed. Pantoprazole for GI prophylaxis Docusate sodium/senna 1 tablet twice a day for bowel regimen Continue Reglan : Right kidney nonobstructing stone 3 mm Renal ultrasound revealed no hydronephrosis Free water 250ml Q8.. Monitor sodium level. Monitor renal function, I/O's, electrolytes replacement per protocol. . Endo: Sliding-scale insulin to maintain euglycemia with Accu-Cheks every 6 hours with low regimen with Novulin R TSH: 3.14 04/28 Heme: Leukocytosis Macrocytic anemia Patient was transfused 2 pack platelets and 2 PRBC 04/28. Follow CBC daily. Monitor trends. ID: Possible C. difficile colitis Aspiration pneumonia Per infectious disease on linezolid, cefepime and metronidazole s/p Zosyn 04/27- 05/06)monitor for signs of infections ( Fever, WBC) Afebrile, Follow up on BAL results 05/09 and 05/13- NGTD. Sputum GNR Pertinent cultures Blood cultures 2 -04/27 -no growth to date Urine culture - 04/27 -50 - 100,000 mixed gram-positive Sputum 04/28- normal resp andrea Urine pneumococcal and Legionella antigens negative MSK: PT evaluate and treat Access -RIJ CVL placed 05/12 Prophylaxis - GI - pantoprazole - DVT - SCD/ Heparin SQ , Critical care time 30 minutes According to RN patient's mother requests no trach and PEG if patient fails weaning. We will consult palliative care to address goals of care. In the meantime I will attempt medically weaning to extubate Esteban Raines MD May 14, 2017 13:46
[2017-05-14] MEDS ORDERED: DEXMEDETOMIDINE INJ 200 MCG in SODIUM CHLORIDE 0.9% INJ 50 ML IV PRN (14:00)
--- NOTE | 2017-05-14 14:53 | HHI.GIFU ---
Subjective Remarks Sedated on vent. NGT clamped. Abdomen is soft, no longer distended, large amount of liquid stool. (Kathrin Carreno) Objective Vitals I&O Vital Signs Date Time Temp Pulse Resp B/P (MAP) Pulse Ox O2 Delivery O2 Flow Rate FiO2 05/14/17 12:04 100 35 05/14/17 10:05 100 35 05/14/17 10:00 35 05/14/17 07:53 100 35 05/14/17 06:00 77 05/14/17 04:11 100 35 05/14/17 04:00 98.6 80 15 110/74 (86) 100 05/14/17 04:00 80 05/14/17 04:00 35 05/14/17 02:00 78 05/14/17 01:20 118/72 05/14/17 00:24 100 35 05/14/17 00:00 98.9 81 24 101/57 (72) 100 05/14/17 00:00 35 05/14/17 00:00 81 05/13/17 22:00 81 05/13/17 20:00 80 05/13/17 20:00 35 05/13/17 20:00 98.7 80 17 104/62 (76) 100 05/13/17 19:24 100 35 05/13/17 18:00 76 05/13/17 16:00 35 05/13/17 16:00 99.1 73 17 96/57 (70) 99 05/13/17 16:00 73 05/13/17 14:51 100 35 I/O 05/13/17 05/13/17 05/13/17 05/14/17 05/14/17 05/14/17 07:00 15:00 23:00 07:00 15:00 23:00 Intake Total 1589 ml 1250 ml 200 ml 1859 ml Output Total 350 ml 350 ml 50 ml Balance 1239 ml 1250 ml -150 ml 1809 ml IV Total 1589 ml 1250 ml 1859 ml Other 200 ml Output Urine Total 350 ml 200 ml 50 ml Gastric Drainage Total 100 ml Drainage Total 50 ml # Bowel Movements 1 2 2 Laboratory Laboratory Tests Test 05/13/17 18:30 05/14/17 04:10 Stool C. difficile Toxin (PCR) NEGATIVE Stl C. difficile Toxin Epiderm 027 PRESUMPTIVE NEGATIVE White Blood Count 7.8 Red Blood Count 2.18 Hemoglobin 7.7 Hematocrit 23.0 Mean Corpuscular Volume 105.6 Mean Corpuscular Hemoglobin 35.1 Mean Corpuscular Hemoglobin Concent 33.3 Red Cell Distribution Width 23.9 Platelet Count 157 Mean Platelet Volume 11.3 Neutrophils (%) (Auto) 72.4 Lymphocytes (%) (Auto) 8.2 Monocytes (%) (Auto) 16.1 Eosinophils (%) (Auto) 2.9 Basophils (%) (Auto) 0.4 Neutrophils # (Auto) 5.7 Lymphocytes # (Auto) 0.6 Monocytes # (Auto) 1.3 Eosinophils # (Auto) 0.2 Basophils # (Auto) 0.0 CBC Comment DIFF FINAL Differential Comment Blood Urea Nitrogen 13 Creatinine 0.56 Random Glucose 103 Calcium Level 7.7 Phosphorus Level 2.6 Magnesium Level 1.6 Sodium Level 133 Potassium Level 3.1 Chloride Level 99 Carbon Dioxide Level 25.9 Anion Gap 8 Estimat Glomerular Filtration Rate 149 Date/Time Source Procedure Growth Status 04/27/17 14:15 Blood Peripheral Aerobic Blood Culture - Final NO GROWTH IN 5 DAYS Complete 04/27/17 14:15 Blood Peripheral Anaerobic Blood Culture - Final NO GROWTH IN 5 DAYS Complete 05/13/17 12:45 Bronchial Washings Left Upper Lobe Fungal Smear Pending Received 05/13/17 12:45 Bronchial Washings Left Upper Lobe Fungal Culture Pending Received 05/06/17 07:50 Urine Catheterized Urine Urine Culture - Final NO GROWTH IN 48 HOURS. Complete Imaging Last Impressions Abdomen X-Ray 05/14/17 0600 Signed Impressions: Service Date/Time: Sunday, May 14, 2017 04:05 - CONCLUSION: Improved bowel gas pattern Olu Rodriguez MD Chest X-Ray 05/13/17 0000 Signed Impressions: Service Date/Time: Saturday, May 13, 2017 13:22 - CONCLUSION: Stable chest appearance. Nasogastric tube in the distal esophagus Olu Rodriguez MD Abdomen/Pelvis CT 05/12/17 0000 Signed Impressions: Service Date/Time: Friday, May 12, 2017 17:56 - CONCLUSION: 1. Left lower lobe collapse and lingular consolidation. Endobronchial soft tissue within the left lower lobe, Mass versus mucus plugging are differential diagnostic considerations. 2. Body wall edema and ascites. 3. Nonobstructing right renal calculus. 4. Colitis with abnormal bowel wall thickening involving the ascending colon, and diffuse small bowel dilatation characteristic of an ileus. Ray Finney MD Chest Ultrasound 05/08/17 0000 Signed Impressions: Service Date/Time: Monday, May 08, 2017 13:01 - CONCLUSION: 1. There is a small left pleural effusion with insufficient volume for thoracentesis at this time. Ronaldo Howell MD Abdomen Fluoroscopy 05/01/17 0000 Signed Impressions: Service Date/Time: Monday, May 01, 2017 13:13 - CONCLUSION: Uncomplicated nasogastric tube placement as above. Zain Kumar MD Lower Extremity Ultrasound 04/28/17 0000 Signed Impressions: Service Date/Time: Friday, April 28, 2017 16:47 - CONCLUSION: Negative exam with no evidence of deep venous thrombosis. Johnathon White MD Chest CT 04/28/17 0000 Signed Impressions: Service Date/Time: Friday, April 28, 2017 11:03 - CONCLUSION: 1. Small bilateral pleural effusions with atelectasis in both lower lobes. There is also a focal area of groundglass opacity in the lingula that is nonspecific but could represent an infectious or inflammatory process. 2. Moderate size hiatal hernia with dilated and fluid-filled esophagus suggesting gastroesophageal reflux. The nasogastric tube distal tip is in the distal esophagus and should ideally be advanced into the stomach. Olu Triana MD Head CT 04/27/17 1017 Signed Impressions: Service Date/Time: Thursday, April 27, 2017 11:00 - CONCLUSION: 1. No acute intracranial abnormality. 2. Complete opacification left maxillary sinus. Keagan Shipman MD Renal Ultrasound 04/27/17 0000 Signed Impressions: Service Date/Time: Thursday, April 27, 2017 23:50 - CONCLUSION: Negative renal sonogram. Rogerio Gunn MD Physical Exam HEENT: Normocephalic CHEST: Resp even, mildly labored. Course breath sounds. CARDIAC: RRR ABDOMEN: Soft, nondistended, nontender, BS hypoactive. EXTREMITIES: BUE edema NURSE SUBSTANCE ABUSE: Sedated on vent (Kathrin Carreno) Assessment and Plan Plan ASSESSMENT - Colonic ileus. CT Scan abdomen and pelvis with IV contrast (05/12/17)----> left lower lobe collapse and lingular consolidation. endobronchial sot tissue within left lower lobe, mass versus mucus plugging are differential diagnostic considerations. Body wall edema and ascites, nonobstructing renal calculus, colitis with abnormal bowel wall thickening involving the ascending colon, and diffuse small bowel dilatation suggesting ileus . S/P 2 SSE. S/P Relistor S/P Decompressive colonoscopy (05/06/17)----> stool throughout the colon, I did not see any masses, visualization was compromised with stool, decompression colon tube was placed. S/P Decompressive colonoscopy (05/12/17)---> Diverticulosis sigmoid poor prep, superficial ulcerations in ascending colon and cecum-biopsy with, pseudomembranes-consistent with cdiff. Pathology pending. Stools negative for cdiff pcr. Clinically much improved. Abdomen flat, soft, + BM. Cont. Miralax, Lactulose. - Colitis/pseudomembranes. CDiff vs. ischemic colitis. Stool was negative for CDiff pcr. Flagyl. Await pathology from colonoscopy. - Anemia, macrocytic. hgb with slight drop today, 8.1, no signs of bleeding. S/ P EGD (04/30/17)---> Martinez esophagus, Esophagitis, Gastritis, Foreign body in the distal esophagus. Pathology reactive gastropathy. S/P 2 units RBC, 2 units Platelets. Vitamin B12 1298. PPI - Martinez's Esophagus, Esophagitis, Gastritis. Pathology reactive gastropathy. PPI - Foreign body in distal esophagus, s/p EGD. - Elevated ammonia, acute encephalopathy. Ammonia 45. Lactulose, Xifaxan. - Elevated bilirubin. CT as above. History of ETOH abuse, drinks 1/5 of vodka daily. Hypoalbuminemia with albumin 2.1. Mild coagulopathy. Suspect liver cirrhosis, likely secondary to alcohol, fatty liver disease. - Thrombocytopenia. S/P 2 platelet transfusion. - Sepsis, unclear source. Urine negative for legionella, streptococcus, bcx neg , sputum cx with light growth normal respiratory andrea. CT reveals possible pneumonia. - Respiratory failure, COPD. Reintubated. - Encephalopathy. ammonia 45 PLAN - Start TF, Jevity 1.5, increase to GR at 60cc/hr - Await pathology - Cont. Flagyl - Cont. Lactulose - Cont. Xifaxan - Cont. PPI - Supportive care - Further recommendations to follow after results of above - Patient seen and examined by Dr. Loving and myself and this note is written on his behalf. (Kathrin Carreno) Physician Comments Seen and examined with IMPLEMENTATION ADVISOR< C. Diff -ve. Await colon biopsies. (Harrison Loving MD) Kathrin Carreno May 14, 2017 14:53 Harrison Loving MD May 14, 2017 15:55
--- NOTE | 2017-05-14 17:17 | PD.CONS ---
Consult Service Palliative Care Consult Requested By Dr Raines . Primary Care Physician No Primary Care Physician Reason for Consultation a. To assist with evaluation and management of symptoms including: encephalopathy, dyspnea, malnutrition b. To assist medical decision maker(s) with: better understanding of current medical conditions; weighing benefits/burdens of medical treatment options; making medical treatment decisions. HPI History of Present Illness This 61-year-old patient was admitted on 04/27/17, through the ED presenting via EMS. He presented with complaints of weakness, dizziness, and inability to get up according to his . He was apparently seen the week prior for hepatic encephalopathy, alcohol abuse. Denied fevers, nausea vomiting diarrhea or other symptoms. He also reported running out of his medications.[Presented to the ED 04/23 for altered mental status, diagnoses of hepatic encephalopathy, discharged home with lactulose, referred for follow-up with primary] * ED: CT brain negative for acute process. Chemistry notable for hypokalemia potassium 2.8, hypomagnesemia level 1.4. BUN 25, creatinine 1.18. She is far 64. CBC unremarkable. Noted to be hypotensive in the ER initiated on IV fluids , repletion of magnesium and potassium.UA positive UTI, initiated on IV antibiotics after cultures obtained. Renal ultrasound negative. Patient was admitted for further evaluation and management. PT and OT consulted. * 04/27 patient worsening throughout the day admitted to ICU, on vancomycin, Zosyn. Arterial line and central line placed. * 04/28 intubated for acute respiratory failure. * GI consulted: Ammonia elevated continue lactulose, Xifaxan monitor ammonia levels. Monitor LFTs. Continue supportive care. Ammonia elevation may be secondary to shunting related to sepsis. * 04/29 requiring pressors, transfused 2 units RBC, 2 pack platelet. No active bleeding. Critical care notes discussions with patient mother Dallas who is serving as proxy. Patient also reported to have an ex-, with 2 sons. One son reported to be disabled and the remaining son defers any decision-making to the patient mother. 04/29 2-D echo EF 60-65%. No major valvular disorder identified. * 04/30 EGD with biopsy and foreign body removal. Noted food and pills and distal esophagus removed with pushing into stomach, notes esophagitis, gastritis , biopsy obtained. * 05/02 off of pressors. On tube feeding via NG tube. On fentanyl for sedation. * 05/05 patient self extubated * 05/06 tolerating 3 L nasal cannula requiring Precedex drip for agitation. New CT abdomen pelvis indicative of gaseous distention right and transverse colon with abrupt change in luminal dimension. Plan for decompressive colonoscopy. * 05/08 patient with respiratory distress, found unresponsive on BiPAP, intubated and on mechanical vent. CXR post intubation indicative complete opacification left hemithorax likely secondary to mucous plug/chest ultrasound notes small left pleural effusion with insufficient volume for thoracentesis. * 05/12 patient underwent colonoscopy with decompression. findings= Sigmoid diverticulosis, superficial ulcerations and ascending colon and cecum biopsy with pseudomembranes C. difficile. ID consulted. Biopsies pending. * ID following. Patient on oral Vanco, Flagyl IV, cefepime, Zyvox. Recommends continue cefepime, Flagyl, Zyvox, follow cultures. * 05/14 patient now on combined vent a 14. Mental status currently not permitting extubation. Still with copious ET tube secretions. Still on some sedation not following commands when lightened. Stool negative for C. difficile PCR. Pathology pending. Abdominal exam improving, having loose bowel movements. Patient mother indicating patient would not want a trach and PEG if unable to wean off vent. Palliative care was consulted to assist with clarification of goals of treatment Pt seen in room, no visitors present. He is awake, eyes open. Appears to track examiner but does not follow any commands. When I ask him to move his hands or feet he nods his head slightly but does not move them. When asked RE pain he does nod head slightly for yes, though difficult to tell if is truly in response to pain. He does attempt to mouth words, unable to understand. + respirations over vent rate. D/w primary RN. Function/Cognitive Trajectory Patient apparently lived at home with his elderly mother prior to this admission. During prior ER evaluation 04/23/17 mother then reported patient unable to walk which had been a progressively worsening problem, he was then requiring a wheelchair. Review of Systems ROS Limitations: Clinical Condition, Intubated Constitutional: COMPLAINS OF: Generalized weakness (per mother at presentation ) Psychiatric: COMPLAINS OF: Confusion (AMS per mother at presentation ) Past Family Social History Coded Allergies: No Known Allergies (Verified Allergy, Unknown, 04/27/17) Uncoded Allergies: STEROIDS (Allergy, Unknown, 07/13/14) Past Medical History COPD and tobacco abuse Alcohol abuse History of alcohol withdrawal seizures Past Surgical History Tonsillectomy Reported Medications Lactulose Liq (Lactulose) 10 Gm/15 Ml Soln 30 Ml PO BID Gabapentin 300 Mg Cap 300 Mg PO TID Spiriva Handihaler (Tiotropium Inh) 18 Mcg Cap 18 Mcg INH DAILY 1 capsule = 18 mcg . Current Medications Medications (Trade) Dose Ordered Sig/Brenda Route Start Time Stop Time Status Last Admin (Neurontin) 300 mg TID PO 04/27/17 13:00 Future hold 05/14/17 12:11 (Tylenol) 650 mg Q4H PRN PO 04/27/17 12:30 05/11/17 15:59 (Compazine Supp) 25 mg Q12H PRN RECTAL 04/27/17 12:30 (Narcan Inj) 0.4 mg UNSCH PRN IV PUSH 04/27/17 12:30 (Beena-Colace) 1 tab BID PO 04/27/17 21:00 Future hold 05/14/17 08:05 (Milk Of Magnesia Liq) 30 ml Q12H PRN PO 04/27/17 12:30 (Senokot) 17.2 mg Q12H PRN PO 04/27/17 12:30 (Dulcolax Supp) 10 mg DAILY PRN RECTAL 04/27/17 12:30 (Xifaxan) 550 mg BID PO 04/27/17 21:00 05/14/17 08:05 (Catapres) 0.1 mg Q6H PRN PO 04/27/17 12:30 (Habitrol 14 Mg Patch.24 Hr) 1 patch DAILY T-DERMAL 04/28/17 09:00 05/14/17 08:09 Miscellaneous Information 1 DAILY T-DERMAL 04/28/17 09:00 05/14/17 08:12 Miscellaneous Information Patient in critical care unit? Ass... [id number] 04/27/17 17:30 Potassium Chloride 100 ml @ 50 mls/hr Q2H PRN IV 04/28/17 07:15 05/14/17 08:05 Potassium Chloride 100 ml @ 50 mls/hr Q2H PRN IV 04/28/17 07:15 05/09/17 11:15 (K-Lyte Cl Eff) 50 meq UNSCH PRN PO 04/28/17 07:15 Potassium Chloride 100 ml @ 25 mls/hr UNSCH PRN IV 04/28/17 07:15 Potassium Chloride 100 ml @ 50 mls/hr Q2H PRN IV 04/28/17 07:15 05/10/17 01:45 Magnesium Sulfate 4 gm/Sodium Chloride 100 ml @ 50 mls/hr UNSCH PRN IV 04/28/17 07:15 (Mag-Ox) 800 mg UNSCH PRN PO 04/28/17 07:15 Magnesium Sulfate 2 gm/Sodium Chloride 100 ml @ 50 mls/hr UNSCH PRN IV 04/28/17 07:15 05/10/17 10:32 (K-Phos) 2,000 mg Q4H PRN PO 04/28/17 07:15 Sodium Phosphate 30 mmol/Sodium Chloride 250 ml @ 42 mls/hr UNSCH PRN IV 04/28/17 07:15 05/10/17 10:31 (K-Phos) 2,000 mg UNSCH PRN PO/TUBE 04/28/17 07:15 Potassium Phosphate 30 mmol/ Sodium Chloride 260 ml @ 42 mls/hr UNSCH PRN IV 04/28/17 07:15 (Peridex 0.12% Liq) 15 ml BID@08,20 MT 04/28/17 20:00 05/14/17 08:03 (Tears Naturale Opth Soln) 1 drop Q8HR EACH EYE 04/28/17 14:00 05/14/17 12:11 (Protonix Inj) 40 mg DAILY IV PUSH 04/28/17 09:30 05/14/17 08:05 (NS Flush) DAILY IVF 04/29/17 15:45 05/13/17 08:02 (NS Flush) UNSCH PRN IVF 04/29/17 15:45 (Vitamin B1) 100 mg DAILY PO 04/30/17 09:15 05/14/17 08:05 (Theragran) 1 tab DAILY PO 04/30/17 09:15 05/14/17 08:05 (Folate) 1 mg DAILY PO 04/30/17 09:15 05/14/17 08:05 (Heparin Inj) 5,000 units Q12HR SQ 05/08/17 21:00 05/14/17 08:06 (Free Water) 250 ml Q8H G-TUBE 05/10/17 16:00 05/14/17 08:00 (Duoneb Neb) 1 ampule Q6HR NEB NEB 05/11/17 16:00 05/14/17 15:19 (Albuterol Neb) 2.5 mg Q2HR NEB PRN NEB 05/11/17 13:45 (Albumin 5% Inj) 25 gm Q12H IV 05/11/17 14:00 05/14/17 15:03 (Reglan Inj) 10 mg Q8HR IV PUSH 05/12/17 14:00 05/14/17 15:03 Dexmedetomidine HCl 200 mcg/ Sodium Chloride 52 ml @ 4.96 mls/hr TITRATE PRN IV 05/12/17 13:15 05/12/17 12:30 (NS Flush) DAILY IV FLUSH 05/13/17 09:00 05/14/17 08:04 (NS Flush) UNSCH PRN IV FLUSH 05/12/17 14:30 Norepinephrine Bitartrate 4 mg/ Sodium Chloride 250 ml @ 7.5 mls/hr TITRATE PRN IV 05/12/17 14:30 05/13/17 00:44 (Brethine Inj) 1 mg UNSCH PRN SQ 05/12/17 14:30 Metronidazole 100 ml @ 100 mls/hr Q6H IV 05/12/17 15:00 05/14/17 15:03 Linezolid 300 ml @ 300 mls/hr Q12H IV 05/12/17 20:00 05/14/17 08:03 Cefepime HCl 2000 mg/Sodium Chloride 100 ml @ 200 mls/hr Q12H IV 05/13/17 12:00 05/14/17 12:11 (Lactulose Liq) 30 ml DAILY PO 05/14/17 09:00 05/14/17 08:05 Dexmedetomidine HCl 200 mcg/ Sodium Chloride 52 ml @ 5.14 mls/hr TITRATE PRN IV 05/14/17 14:00 Family History Per EMR Alcohol abuse , tobacco abuse Substance Use Tobacco: Smokes 1/2 PPD Alcohol: Drinks a fifth of vodka daily x 20 yr Prescription med abuse: None reported Illicits: None reported . Psychosocial History Patient estranged from second , but still legally to her name Caty Pittman. 2 adult children from a prior marriage--one child reported to be disabled and dependent for care center not able to participate, the other son in Jon lives in [place] and has apparently remained in communication with patient mother though not in close communication with patient. Patient supported by sister Zakia who is an RN, she lives in [place]. Also supported by mother Dallas. Family reports has struggled with alcoholism his whole life. Has not worked in some time secondary to this. Has been in [place] about 10 years. 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 Spiritual/Cultural Factors Orthodox. . Living Will: Never completed Health Care Surrogate: Never completed Durable Power of [place] [employer]: Never completed Ethical and Legal Issues Patient is currently unable to participate in decision-making due to clinical condition. Not clear if he will regain capacity. He may still be legally to his , though they have been . If he is still then this would be the appropriate legal proxy per statutes if she wished to serve as such. If she did not wish to serve or is not still legally then this decision-making would fall to the 2 adult children, it is reported that one is debilitated and wants deferred to the patient's mother. If this were the case and other potential proxies are exhausted then the mother may be appropriate legal decision maker. ======= discussion with patient's sister Zakia who indicates patient was still legally to second Caty Pittman who last resided in [place], city unknown. In this case we need to do due diligence to attempt to locate legal to determine if she wishes to participate in decision-making. If she is not able to be located, or does not wish to participate, then can move on to son who apparently defers to mother who will make decisions involving son and sister. Order for case management to assist with ACCURINT search. Physical Exam Vital Signs Date Time Temp Pulse Resp B/P (MAP) Pulse Ox O2 Delivery O2 Flow Rate FiO2 05/14/17 15:05 100 35 05/14/17 12:16 83 35 128/59 (82) 100 05/14/17 12:16 83 05/14/17 12:04 100 35 05/14/17 12:01 83 05/14/17 12:01 83 34 105/60 (75) 100 05/14/17 12:00 81 32 100 05/14/17 12:00 81 05/14/17 11:45 81 05/14/17 11:45 81 35 110/62 (78) 100 05/14/17 11:30 81 35 112/67 (82) 100 05/14/17 11:30 81 05/14/17 11:16 81 05/14/17 11:16 81 33 134/78 (96) 100 05/14/17 11:01 83 34 97/55 (69) 100 05/14/17 11:01 83 05/14/17 10:45 79 39 114/56 (75) 100 05/14/17 10:45 79 05/14/17 10:30 79 05/14/17 10:30 79 37 123/58 (79) 100 05/14/17 10:15 79 35 141/65 (90) 100 05/14/17 10:15 79 05/14/17 10:05 100 35 05/14/17 10:00 35 05/14/17 10:00 79 18 108/69 (82) 100 05/14/17 10:00 79 05/14/17 09:45 80 21 117/72 (87) 100 05/14/17 09:45 80 05/14/17 09:31 79 05/14/17 09:31 79 26 128/97 (107) 100 05/14/17 09:15 78 21 100/68 (79) 100 05/14/17 09:15 78 05/14/17 09:00 79 05/14/17 09:00 79 20 101/71 (81) 100 05/14/17 08:45 77 23 97/67 (77) 99 05/14/17 08:45 77 05/14/17 08:30 74 05/14/17 08:30 74 20 95/65 (75) 100 05/14/17 08:15 75 05/14/17 08:15 75 17 95/73 (80) 100 05/14/17 08:01 71 05/14/17 08:01 71 25 101/57 (72) 100 05/14/17 08:00 35 05/14/17 08:00 73 22 100 05/14/17 08:00 73 05/14/17 07:53 100 35 10/9/17 06:00 77 05/14/17 04:11 100 35 05/14/17 04:00 98.6 80 15 110/74 (86) 100 05/14/17 04:00 80 05/14/17 04:00 35 05/14/17 02:00 78 05/14/17 01:20 118/72 05/14/17 00:24 100 35 05/14/17 00:00 98.9 81 24 101/57 (72) 100 05/14/17 00:00 35 05/14/17 00:00 81 05/13/17 22:00 81 05/13/17 20:00 80 05/13/17 20:00 35 05/13/17 20:00 98.7 80 17 104/62 (76) 100 05/13/17 19:24 100 35 05/13/17 18:00 76 Exam CONSTITUTIONAL/GENERAL: This is an adequately nourished patient, awake mildly restless at times on mechanical vent TUBES/LINES/DRAINS: Peripheral IV left upper extremity, right IJ central line, ET tube, NG tube, Young catheter, rectal tube, soft restraints upper extremities SKIN: No jaundice, rashes, or lesions. Cathetered Ecchymoses on upper extremities. No wounds seen anteriorly. Skin warm. HEAD: Atraumatic. Normocephalic. EYES: Pupils equal and round and reactive. Extraocular motions intact. No scleral icterus. No injection or drainage. Fundi not examined. ENT: Hearing appears normal as he tracks examiner. Nose without bleeding or purulent drainage. Unable to visualize oropharynx secondary ET tube NECK: Trachea midline. Supple, nontender. No palpable thyroid enlargement or nodularity. CARDIOVASCULAR: Regular rate and rhythm without murmurs, gallops, or rubs. No JVD. Peripheral pulses symmetric. RESPIRATORY/CHEST: Symmetric, unlabored respirations. Coarse scattered rhonchi.. Breath sounds equal bilaterally. GASTROINTESTINAL: Abdomen soft, mildly distended, bowel sounds normoactive, tube feed infusing via NG tube. No palpable masses. Unable to determine tenderness as unable to communicate. No apparent tenderness. GENITOURINARY: Without palpable bladder distension. Young catheter in place. MUSCULOSKELETAL: Extremities without clubbing, cyanosis. 2-3 + edema to upper and lower extremities. No joint effusion noted. NEUROLOGICAL: Awake tracks examiner. Does not follow any commands. He does nod to some questions though not consistently does not really appear meaningful. Attempts to mouth words though I'm unable to understand. He does move extremities weakly, spontaneously. PSYCHIATRIC: Mild restlessness at times Diagnostic Tests Laboratory Laboratory Tests Test 05/12/17 04:00 05/12/17 14:47 05/13/17 05:00 05/13/17 12:45 White Blood Count 8.6 TH/MM3 (4.0-11.0) 9.3 TH/MM3 (4.0-11.0) Red Blood Count 2.42 MIL/MM3 (4.50-5.90) 2.30 MIL/MM3 (4.50-5.90) Hemoglobin 8.6 GM/DL (13.0-17.0) 8.1 GM/DL (13.0-17.0) Hematocrit 26.1 % (39.0-51.0) 24.3 % (39.0-51.0) Mean Corpuscular Volume 107.9 FL (80.0-100.0) 105.8 FL (80.0-100.0) Mean Corpuscular Hemoglobin 35.4 PG (27.0-34.0) 35.3 PG (27.0-34.0) Mean Corpuscular Hemoglobin Concent 32.9 % (32.0-36.0) 33.4 % (32.0-36.0) Red Cell Distribution Width 24.7 % (11.6-17.2) 24.1 % (11.6-17.2) Platelet Count 170 TH/MM3 (150-450) 171 TH/MM3 (150-450) Mean Platelet Volume 10.4 FL (7.0-11.0) 10.7 FL (7.0-11.0) Neutrophils (%) (Auto) 73.2 % (16.0-70.0) 72.9 % (16.0-70.0) Lymphocytes (%) (Auto) 8.4 % (9.0-44.0) 8.2 % (9.0-44.0) Monocytes (%) (Auto) 14.5 % (0.0-8.0) 15.7 % (0.0-8.0) Eosinophils (%) (Auto) 3.1 % (0.0-4.0) 2.5 % (0.0-4.0) Basophils (%) (Auto) 0.8 % (0.0-2.0) 0.7 % (0.0-2.0) Neutrophils # (Auto) 6.3 TH/MM3 (1.8-7.7) 6.8 TH/MM3 (1.8-7.7) Lymphocytes # (Auto) 0.7 TH/MM3 (1.0-4.8) 0.8 TH/MM3 (1.0-4.8) Monocytes # (Auto) 1.2 TH/MM3 (0-0.9) 1.5 TH/MM3 (0-0.9) Eosinophils # (Auto) 0.3 TH/MM3 (0-0.4) 0.2 TH/MM3 (0-0.4) Basophils # (Auto) 0.1 TH/MM3 (0-0.2) 0.1 TH/MM3 (0-0.2) CBC Comment DIFF FINAL DIFF FINAL Differential Comment Blood Urea Nitrogen 19 MG/DL (7-18) 17 MG/DL (7-18) Creatinine 0.72 MG/DL (0.60-1.30) 0.70 MG/DL (0.60-1.30) Random Glucose 97 MG/DL (74-106) 111 MG/DL (74-106) Total Protein 5.5 GM/DL (6.4-8.2) 5.3 GM/DL (6.4-8.2) Albumin 2.3 GM/DL (3.4-5.0) 2.3 GM/DL (3.4-5.0) Calcium Level 8.1 MG/DL (8.5-10.1) 7.7 MG/DL (8.5-10.1) Phosphorus Level 3.1 MG/DL (2.5-4.9) 2.7 MG/DL (2.5-4.9) Magnesium Level 2.1 MG/DL (1.5-2.5) 1.8 MG/DL (1.5-2.5) Alkaline Phosphatase 91 U/L (45-117) 74 U/L (45-117) Aspartate Amino Transf (AST/SGOT) 35 U/L (15-37) 22 U/L (15-37) Alanine Aminotransferase (ALT/SGPT) 19 U/L (12-78) 14 U/L (12-78) Total Bilirubin 0.8 MG/DL (0.2-1.0) 1.0 MG/DL (0.2-1.0) Sodium Level 138 MEQ/L (136-145) 134 MEQ/L (136-145) Potassium Level 3.8 MEQ/L (3.5-5.1) 3.6 MEQ/L (3.5-5.1) Chloride Level 103 MEQ/L (98-107) 100 MEQ/L (98-107) Carbon Dioxide Level 28.8 MEQ/L (21.0-32.0) 26.1 MEQ/L (21.0-32.0) Anion Gap 6 MEQ/L (5-15) 8 MEQ/L (5-15) Estimat Glomerular Filtration Rate 111 ML/MIN (>89) 115 ML/MIN (>89) Ammonia 42 MCMOL/L (11-32) 45 MCMOL/L (11-32) Stool C. difficile Toxin (PCR) NEGATIVE (NEGATIVE) Stl C. difficile Toxin Epiderm 027 PRESUMPTIVE NEGATIVE Lactic Acid Level 1.3 mmol/L (0.4-2.0) Amylase Level 5 U/L (25-115) Lipase 33 U/L (73-393) Bronchoalveolar Lavage WBC 580 /MM3 Bronchoalveolar Lavage RBC 3080 /MM3 Bronchoalveolar Lavage Neutrophils 91 % Bronchoalveolar Lavage Lymphocytes 2 % Bronchoalveolar Lavage Eosinophils 1 % Bronchoalveolar Lavage Histiocytes 6 % Bronchoalveolar Lavage Diff Comment Lavage Fluid Total Volume 18.0 ML Lavage Fluid Total WBC Count 10.440 MILLION (4.700-7.100) Test 05/13/17 18:30 05/14/17 04:10 Stool C. difficile Toxin (PCR) NEGATIVE (NEGATIVE) Stl C. difficile Toxin Epiderm 027 PRESUMPTIVE NEGATIVE White Blood Count 7.8 TH/MM3 (4.0-11.0) Red Blood Count 2.18 MIL/MM3 (4.50-5.90) Hemoglobin 7.7 GM/DL (13.0-17.0) Hematocrit 23.0 % (39.0-51.0) Mean Corpuscular Volume 105.6 FL (80.0-100.0) Mean Corpuscular Hemoglobin 35.1 PG (27.0-34.0) Mean Corpuscular Hemoglobin Concent 33.3 % (32.0-36.0) Red Cell Distribution Width 23.9 % (11.6-17.2) Platelet Count 157 TH/MM3 (150-450) Mean Platelet Volume 11.3 FL (7.0-11.0) Neutrophils (%) (Auto) 72.4 % (16.0-70.0) Lymphocytes (%) (Auto) 8.2 % (9.0-44.0) Monocytes (%) (Auto) 16.1 % (0.0-8.0) Eosinophils (%) (Auto) 2.9 % (0.0-4.0) Basophils (%) (Auto) 0.4 % (0.0-2.0) Neutrophils # (Auto) 5.7 TH/MM3 (1.8-7.7) Lymphocytes # (Auto) 0.6 TH/MM3 (1.0-4.8) Monocytes # (Auto) 1.3 TH/MM3 (0-0.9) Eosinophils # (Auto) 0.2 TH/MM3 (0-0.4) Basophils # (Auto) 0.0 TH/MM3 (0-0.2) CBC Comment DIFF FINAL Differential Comment Blood Urea Nitrogen 13 MG/DL (7-18) Creatinine 0.56 MG/DL (0.60-1.30) Random Glucose 103 MG/DL (74-106) Calcium Level 7.7 MG/DL (8.5-10.1) Phosphorus Level 2.6 MG/DL (2.5-4.9) Magnesium Level 1.6 MG/DL (1.5-2.5) Sodium Level 133 MEQ/L (136-145) Potassium Level 3.1 MEQ/L (3.5-5.1) Chloride Level 99 MEQ/L (98-107) Carbon Dioxide Level 25.9 MEQ/L (21.0-32.0) Anion Gap 8 MEQ/L (5-15) Estimat Glomerular Filtration Rate 149 ML/MIN (>89) Result Diagram: 05/14/1740905/14/17 0410 Microbiology Microbiology Date/Time Source Procedure Growth Status 05/13/17 12:45 Bronchial Washings Left Upper Lobe Fungal Smear Pending Received 05/13/17 12:45 Bronchial Washings Left Upper Lobe Fungal Culture Pending Received 05/13/17 12:45 Bronchial Washings Left Lower Lobe Acid Fast Stain Pending Received 05/13/17 12:45 Bronchial Washings Left Lower Lobe Mycobacterial Culture Pending Received 05/13/17 12:45 Bronchial Washings Left Lower Lobe Gram Stain - Final Resulted 05/13/17 12:45 Bronchial Washings Left Lower Lobe Bronchial Culture - Preliminary NO GROWTH IN 24 HOURS. Resulted 05/13/17 05:30 Sputum Endotracheal Gram Stain - Final Resulted 05/13/17 05:30 Sputum Culture - Preliminary Gram Negative Mk Resulted Imaging Last Impressions Abdomen X-Ray 05/14/17 0600 Signed Impressions: Service Date/Time: Sunday, May 14, 2017 04:05 - CONCLUSION: Improved bowel gas pattern Olu Rodriguez MD Chest X-Ray 05/13/17 0000 Signed Impressions: Service Date/Time: Saturday, May 13, 2017 13:22 - CONCLUSION: Stable chest appearance. Nasogastric tube in the distal esophagus Olu Rodriguez MD Abdomen/Pelvis CT 05/12/17 0000 Signed Impressions: Service Date/Time: Friday, May 12, 2017 17:56 - CONCLUSION: 1. Left lower lobe collapse and lingular consolidation. Endobronchial soft tissue within the left lower lobe, Mass versus mucus plugging are differential diagnostic considerations. 2. Body wall edema and ascites. 3. Nonobstructing right renal calculus. 4. Colitis with abnormal bowel wall thickening involving the ascending colon, and diffuse small bowel dilatation characteristic of an ileus. Ray Finney MD Chest Ultrasound 05/08/17 0000 Signed Impressions: Service Date/Time: Monday, May 08, 2017 13:01 - CONCLUSION: 1. There is a small left pleural effusion with insufficient volume for thoracentesis at this time. Ronaldo Howell MD Abdomen Fluoroscopy 05/01/17 0000 Signed Impressions: Service Date/Time: Monday, May 01, 2017 13:13 - CONCLUSION: Uncomplicated nasogastric tube placement as above. Zain Kumar MD Lower Extremity Ultrasound 04/28/17 0000 Signed Impressions: Service Date/Time: Friday, April 28, 2017 16:47 - CONCLUSION: Negative exam with no evidence of deep venous thrombosis. Johnathon White MD Chest CT 04/28/17 0000 Signed Impressions: Service Date/Time: Friday, April 28, 2017 11:03 - CONCLUSION: 1. Small bilateral pleural effusions with atelectasis in both lower lobes. There is also a focal area of groundglass opacity in the lingula that is nonspecific but could represent an infectious or inflammatory process. 2. Moderate size hiatal hernia with dilated and fluid-filled esophagus suggesting gastroesophageal reflux. The nasogastric tube distal tip is in the distal esophagus and should ideally be advanced into the stomach. Olu Triana MD Head CT 04/27/17 1017 Signed Impressions: Service Date/Time: Thursday, April 27, 2017 11:00 - CONCLUSION: 1. No acute intracranial abnormality. 2. Complete opacification left maxillary sinus. Keagan Shipman MD Renal Ultrasound 04/27/17 0000 Signed Impressions: Service Date/Time: Thursday, April 27, 2017 23:50 - CONCLUSION: Negative renal sonogram. Rogerio Gunn MD Procedures 04/28 intubated 04/30 EGD 05/05 self extubated 05/06 decompressive colonoscopy 05/08 reintubated 05/12 decompressive colonoscopy . Patient/Family Conference Issues Discussed: Limited discussion with patient and sister today discussion included the following: * Palliative care role, purpose, approach * Additional medical, psychosocial, history * Patients general health, functional status, and cognitive changes in the months leading up to the current hospitalization * Patient/family understanding of the current medical problems * Patient/family understanding of prognosis * Patients goals of care as best understood from advance directives and/or conversations and/or values * Legal decision makers/per [place] statutes--no decisions to be made until appropriate proxy is identified; review of process going forward * Likely scenarios comparing ongoing aggressive care with a transition to comfort measures only * Questions answered to the best of my ability * Palliative care contact information provided All questions answered to best of my ability. Further discussions regarding goals once appropriate proxy identified. Sister indicates that she and patient mother have talked with patient before and in the past he has verbalized that he would not want to be prolonged on artificial measures. They feel he would not want to proceed with tracheostomy and PEG tube, instead would want comfort measures. I attempted to call patient mother, phone rang unable to leave voicemail. . Assessment and Plan Disease Oriented Problem List: (1) Acute encephalopathy (2) Severe sepsis (3) COPD (chronic obstructive pulmonary disease) (4) Hyperammonemia (5) Hypoalbuminemia due to protein-calorie malnutrition (6) Hiatal hernia (7) Diverticulosis, sigmoid (8) Kidney stone on right side (9) Aspiration pneumonia (10) Hypokalemia (11) Hypomagnesemia (12) UTI (urinary tract infection) (13) Chronic alcoholism Symptom Scale: (1) Dyspnea (2) Malnutrition (3) Encephalopathy (4) Anxiety Pertinent Non-Medical Issues Psychosocial:Patient estranged from second , but still legally to her name Caty Pittman. 2 adult children from a prior marriage-- one child reported to be disabled and dependent for care center not able to participate, the other son in Jon lives in [place] and has apparently remained in communication with patient mother though not in close communication with patient. Patient supported by sister Zakia who is an RN, she lives in [place]. Also supported by mother Dallas. Family reports has struggled with alcoholism his whole life. Has not worked in some time secondary to this. Has been in [place] about 10 years. 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 Spiritual: Orthodox Legal:Patient is currently unable to participate in decision-making due to clinical condition. Not clear if he will regain capacity. He may still be legally to his , though they have been . If he is still then this would be the appropriate legal proxy per statutes if she wished to serve as such. If she did not wish to serve or is not still legally then this decision-making would fall to the 2 adult children, it is reported that one is debilitated and wants deferred to the patient's mother. If this were the case and other potential proxies are exhausted then the mother may be appropriate legal decision maker. ======= discussion with patient's sister Zakia who indicates patient was still legally to second Caty Pittman who last resided in [place], [facility] unknown. In this case we need to do due diligence to attempt to locate legal to determine if she wishes to participate in decision-making. If she is not able to be located, or does not wish to participate, then can move on to son who apparently defers to mother who will make decisions involving son and sister. Order for case management to assist with ACCURINT search. Ethical issues impacting care: Important Contacts Dallas Pittman/mother [phone] Zakia Moore [phone] sister . Prognosis This patient was admitted for altered mental status. He has had ongoing hepatic encephalopathy and debility secondary to alcohol abuse. This admission he has been intubated twice, is currently being treated for aspiration pneumonia. GI following, pathology from colonoscopy biopsies pending. Overall prognosis for meaningful recovery and independent function is poor given his history. Possible he can survive current acute hospitalization but would likely require tracheostomy and PEG tube to continue invasive/aggressive measures. . Code Status: Full Code Plan * Legal decision maker: Patient is currently unable to participate in decision- making due to clinical condition. Not clear if he will regain capacity. He may still be legally to his , though they have been . If he is still then this would be the appropriate legal proxy per statutes if she wished to serve as such. If she did not wish to serve or is not still legally then this decision-making would fall to the 2 adult children, it is reported that one is debilitated and wants deferred to the patient's mother. If this were the case and other potential proxies are exhausted then the mother may be appropriate legal decision maker. ======= discussion with patient's sister Zakia who indicates patient was still legally to second Caty Pittman who last resided in [place], [facility] unknown. In this case we need to do due diligence to attempt to locate legal to determine if she wishes to participate in decision-making. If she is not able to be located, or does not wish to participate, then can move on to son who apparently defers to mother who will make decisions involving son and sister. Order for case management to assist with ACCURINT search. * Goals: TBD/pending identification of appropriate legal decision maker. Patient apparently still legally though has long been from his second . Patient's sister and mother have verbalized that patient would not want to continue with prolonged life support and would not want a tracheostomy or PEG tube, they have voiced that he would instead want comfort measures. * CODE STATUS:Full code * SYMPTOMS: --Dyspnea-second intubation this hospital admission for acute respiratory failure.+ Aspiration pneumonia, as well as significant encephalopathy and inability to protect his airway; will likely require tracheostomy and PEG tube for longer-term aggressive interventions if goals aggressive. Currently mildly tachypneic on ventilator, low dose Precedex. Respiratory rate 6-8 vent rate. Not able to medically extubate --Encephalopathy-hepatic,? Sepsis. Ammonia level has remained elevated despite lactulose, Xifaxan. Yesterday ammonia level XLV. --Malnutrition-patient with long history alcohol abuse chronic malnutrition likely given this diagnoses; albumin 2.3. Started on slow rate tube feeding, today, tolerating thus far. --Anxiety/agitation-multifactorial, history EtOH abuse, has required Precedex drip and other sedatives while on mechanical vent. Currently fairly comfortable on Precedex. * Palliative care will continue to follow during hospital course as condition evolves, to assist patient/decision-maker with understanding of medical conditions, weighing benefits/burdens of treatment options, for clarification of goals of treatment. Additionally will assist with any symptoms of palliative concern . Time Spent Total Floor Time (mins): 60 (time spent reviewing records, discussion with primary nurse, examining patient) Thank you for the opportunity to participate in the care of Mr. Pittman. Attestation To help prompt me to consider important information that might be impacting today's encounter and assessment, information from prior notes written by myself or my colleagues may have been "brought forward" into today's note. My signature on this note, however, is an attestation that I personally performed the exam, history, and/or decision-making noted today, and, unless otherwise indicated, the interactions with patient, family, and staff as well as the review of records all occurred today. I also attest that the listed assessment and stated plan reflect my best clinical judgment today based on the combination of historical information, prior notes, and today's exam/ interactions. When time spent is documented, it refers only to time spent today by the signer, or if indicated, combined time spent today by collaborating physician/nurse practitioner. Gregoria Loyd May 14, 2017 17:17
[2017-05-14] MEDS: DEXMEDETOMIDINE INJ 200 MCG in SODIUM CHLORIDE 0.9% INJ 50 ML IV PRN (17:31)
[2017-05-15] VITALS (60 sets, daily range): BP systolic 74–136; BP diastolic 55–96; PULSE 57–127; RESP 8–32; TEMP 97.1–99.1; O2SAT 93–100
[2017-05-15] MEDS: ALBUMIN HUMAN 5% 25 GM/500 ML BOTTLE IV SCH ×2 (00:55→12:29)
[2017-05-15] MEDS: CEFEPIME INJ 2,000 MG in SODIUM CHLORIDE 0.9% INJ 100 ML IV SCH ×2 (00:55→12:30)
[2017-05-15] MEDS: metroNIDAZOLE 500 MG INJ 100 ML IV SCH ×4 (04:09→21:21)
[2017-05-15] MEDS: METOCLOPRAMIDE HCL 10 MG/2 ML VIAL IV PUSH SCH ×3 (04:10→21:22)
[2017-05-15] MEDS: ARTIFICIAL TEARS OPTH SOLN 15 ML BTL EACH EYE SCH ×3 (04:10→21:23)
[2017-05-15] MEDS: DEXMEDETOMIDINE INJ 200 MCG in SODIUM CHLORIDE 0.9% INJ 50 ML IV PRN ×5 (04:16→22:47)
[2017-05-15] MEDS: RESP: ALBUTEROL 2.5 MG/IPRATROPIUM 0.5 MG NEB (SCH) NEB ×2 (04:24→10:02)
[2017-05-15 05:05] LABS: AUTOMATED NEUTROPHIL # 4.5 TH/MM3 (1.8-7.7); BASOPHIL % 0.5 % (0.0-2.0); EOSINOPHIL # 0.2 TH/MM3 (0-0.4); EOSINOPHIL % 3.5 % (0.0-4.0); HEMATOCRIT 23.2 % (39.0-51.0); HEMO FLAGS DIFF FINAL; LYMPH % 9.5 % (9.0-44.0); LYMPHOCYTE # 0.6 TH/MM3 (1.0-4.8); MEAN CELL VOLUME 106.4 FL (80.0-100.0); MONO % 15.2 % (0.0-8.0); NEUT % 71.3 % (16.0-70.0); PLATELET COUNT 152 TH/MM3 (150-450); RED BLOOD COUNT 2.18 MIL/MM3 (4.50-5.90); WHITE BLOOD COUNT 6.3 TH/MM3 (4.0-11.0)
--- NOTE | 2017-05-15 05:05 | RADRPT ---
EXAM DATE/TIME: 05/15/2017 04:04 [facility] COMPARISON: CHEST SINGLE AP, May 13, 2017, 13:22. INDICATIONS : Short of breath. MEDICAL HISTORY : Chronic obstructive pulmonary disease. SURGICAL HISTORY : None. ENCOUNTER: Subsequent ACUITY: 3 weeks PAIN SCORE: 0/10 LOCATION: Bilateral chest FINDINGS: Endotracheal tube is present with tip 4-5 cm above the hoda. Nasogastric tube extends to the distal esophagus, coiled in the pharynx. Right central line is stable. There is persistent hazy bilateral p leuroparenchymal opacity most confluent in the left lung base. Accounting for rotation, cardiac conto urs are stable. CONCLUSION: Probable slight improvement in aeration. Olu Rodriguez MD on May 15, 2017 at 5:03 Board Certified Radiologist. This report was verified electronically.
[2017-05-15 05:22] LABS: ANION GAP 8 MEQ/L (5-15); AST (GOT) 21 U/L (15-37); BICARBONATE 24.6 MEQ/L (21.0-32.0); BLOOD UREA NITROGEN 8 MG/DL (7-18); CHLORIDE 104 MEQ/L (98-107); GLOMERULAR FILTRATION RATE 240 ML/MIN (>89); MAGNESIUM 1.4 MG/DL (1.5-2.5); POTASSIUM 3.3 MEQ/L (3.5-5.1); SODIUM (NA) 137 MEQ/L (136-145)
[2017-05-15 05:23] LABS: ALT (GPT) 11 U/L (12-78)
[2017-05-15 05:25] LABS: ALKALINE PHOSPHATASE 82 U/L (45-117); TOTAL BILIRUBIN ADULT 0.7 MG/DL (0.2-1.0)
[2017-05-15] MEDS: FREE WATER G-TUBE SCH ×3 (08:00→21:22)
[2017-05-15] MEDS: SODIUM CHLORIDE 0.9% FLUSH 10 ML FLUSH IVF SCH (09:00)
[2017-05-15] MEDS: REMOVE OLD PATCH T-DERMAL SCH (09:00)
[2017-05-15] MEDS: LINEZOLID 600 MG PREMIX 300 ML IV SCH ×2 (09:10→21:20)
[2017-05-15] MEDS: PANTOPRAZOLE SODIUM 40 MG VIAL IV PUSH SCH (09:11)
[2017-05-15] MEDS: LACTULOSE SYRUP 20 GM/30 ML CUP PO SCH (09:11)
[2017-05-15] MEDS: THIAMINE HCL 100 MG TAB PO SCH (09:11)
[2017-05-15] MEDS: HEPARIN SODIUM - SQ 10,000 UNITS/ML VIAL SQ SCH ×2 (09:11→21:20)
[2017-05-15] MEDS: CHLORHEXIDINE 0.12% (ORAL KIT) 15 ML CUP MT SCH ×2 (09:11→21:37)
[2017-05-15] MEDS: GABAPENTIN 300 MG CAP PO SCH ×3 (09:11→17:08)
[2017-05-15] MEDS: DOCUSATE SODIUM 50 MG/SENNA 8.6 MG TAB PO SCH ×3 (09:11→21:22)
[2017-05-15] MEDS: RIFAXIMIN 550 MG TAB PO SCH ×3 (09:11→21:20)
[2017-05-15] MEDS: FOLIC ACID 1 MG TAB PO SCH (09:11)
[2017-05-15] MEDS: MULTIVITAMIN TAB PO SCH (09:11)
[2017-05-15] MEDS: SODIUM CHLORIDE 0.9% FLUSH 10 ML FLUSH IV FLUSH SCH (09:12)
[2017-05-15] MEDS: NICOTINE 14 MG/24 HR PATCH T-DERMAL SCH (09:12)
[2017-05-15] MEDS ORDERED: RESP: RACEPINEPHRINE 2.25% 0.5 ML NEB ONE (10:07)
[2017-05-15] MEDS ORDERED: DEXAMETHASONE SOD PHOS 4 MG/ML VIAL IV PUSH ONE (10:15)
[2017-05-15] MEDS ORDERED: FUROSEMIDE 40 MG/4 ML VIAL IV PUSH ONE (10:15)
--- NOTE | 2017-05-15 10:23 | HHI.CCPN ---
Subjective Remarks/Hospital Course 61yM with h/o prior hepatic encephalopathy, etoh abuse, tobacco abuse, now admitted with weakness, fever, chills, worsening hypotension. called by hospitalist service overnight for clinical decline despite ivf resuscitation. Patient does complain of flank pain, but denies chest pain, abdominal pain. u/a +. started earlier on vanc/zosyn. has not voided. becoming worseningly agitated. unable to provide any additional information due to altered mental status. 04/28: Chart reviewed. Patient still quite agitated stating "I have to pee" patient has a Young catheter. Complaining of flank pain. Noted renal ultrasound negative. Currently on norepinephrine at 12 mg per minute. 04/29: Resting in bed in no acute distress. Currently on norepinephrine at 7 per minute for vasopressor support. Transfuse 2 units PRBC and 2 pack platelets overnight. Dilutional. Absolutely no signs of active bleeding. 04/30 Patient is sedated with Fentanyl and intubated. On Levophed 5 mics. Afebrile. For EGD today. 05/01 No events overnight. Sedated and intubated. On Levophed 4 mics. s/p EGD yesterday with shoed esophagitis, gastritis, food impaction in distal esophagus removed. 05/02: Afebrile. Off all vasopressors. NG tube advanced by IR yesterday. Feeding to be initiated today. Currently on fentanyl drip 05/03: Remains intubated sedated and not following commands remains on fentanyl infusion. Attempt CPAP trial if patient wakeful enough. Urine output minimal only 300 mL in 24 hours. Will give albumin and Bumex 05/04 Patient is sedated with Fentanyl and intubated. Afebrile. 05/05 Patient was self extubated last night. For possible decompressive colonoscopy today. Afebrile. 05/06 Patient is on 3L oxygen for decompressive colonoscopy today. On Precedex drip for agitation. CT abdomen/pelvis last night showed development of gaseous distention of the right and transverse colon with abrupt change in luminal dimension at the splenic flexure. There is a rectal tube in place and cannot differentiate between a focal obstruction/stricture versus decompression from the rectal tube. 05/07 Patient s/p decompressive colonoscopy last night KUB this morning showed decreased colonic distention. On 4L oxygen. 05/08 Patient was unresponsive on BIPAP this morning and was in resp distress he was subsequently intubated and placed on mechanical ventilation. CXR post intubation showed complete opacification of left hemithorax likely 2nd mucous plug 05/09 Patient is sedated with Fentanyl and intubated. Afebrile. 05/10 Patient remains sedated and intubated. Afebrile. Tolerating tube feeds 05/11: Tolerated PSV trials 3 hours today. Not tolerating tube feeding currently. KUB pending. Positive BM. Decreased urine output noted. 05/12: Lasted 1 hour on PSV trials today. Currently vomiting will be decompressed from above and below per GI today. Afebrile. Central line placed due to persistent hypotension Subjective 05/13: Permission from mother for bronchoscopy today for diagnosis left lower lobe on CAT scan of min/pelvis yesterday. Sample sent. Currently on linezolid , cefepime and Flagyl per infectious disease. 05/14: Patient remains intubated sedated, on sedation hold do not follow commands , but moving extremities. Initially intubated 04/28, self extubated 05/05, Re intubated for mucus plugging, AMS on 05/07 night. Combined vent day 14, mental status will not permit extubation. Copious yellow ETT secretions. 05/15: Gets agitated on CPAP. But intermittently follows commands. Good oxygen saturation. Chest x-ray shows improved aeration. Moderate secretions from ET tube but good cough. Will proceed with extubation. Remains full code Objective Vital Signs Date Time Temp Pulse Resp B/P (MAP) Pulse Ox O2 Delivery O2 Flow Rate FiO2 05/15/17 10:01 99 Nasal Cannula 4 05/15/17 09:28 35 05/15/17 06:00 76 05/15/17 04:00 97.1 21 100/70 (80) Intake and Output 05/15/17 05/15/17 05/16/17 08:00 16:00 00:00 Intake Total 2350 ml Output Total 1200 ml Balance 1150 ml Result Diagram: 05/15/17 0400 05/15/17 0400 Imaging Last Impressions Chest X-Ray 05/13/17 0000 Signed Impressions: Service Date/Time: Saturday, May 13, 2017 13:22 - CONCLUSION: Stable chest appearance. Nasogastric tube in the distal esophagus Olu Rodriguez MD Abdomen/Pelvis CT 05/12/17 0000 Signed Impressions: Service Date/Time: Friday, May 12, 2017 17:56 - CONCLUSION: 1. Left lower lobe collapse and lingular consolidation. Endobronchial soft tissue within the left lower lobe, Mass versus mucus plugging are differential diagnostic considerations. 2. Body wall edema and ascites. 3. Nonobstructing right renal calculus. 4. Colitis with abnormal bowel wall thickening involving the ascending colon, and diffuse small bowel dilatation characteristic of an ileus. Ray Finney MD Abdomen X-Ray 05/12/17 0000 Signed Impressions: Service Date/Time: Friday, May 12, 2017 06:36 - CONCLUSION: 1. Reinsertion of the rectal tube which is coiled within the rectal vault. It may be kinked and not draining well. 2. Persistent gaseous distention of the colon although a slight decrease in the volume of gas. 3. New mildly dilated gas-filled loops of small bowel. Rogerio Harris Jr., MD Chest Ultrasound 05/08/17 0000 Signed Impressions: Service Date/Time: Monday, May 08, 2017 13:01 - CONCLUSION: 1. There is a small left pleural effusion with insufficient volume for thoracentesis at this time. Ronaldo Howell MD Abdomen Fluoroscopy 05/01/17 0000 Signed Impressions: Service Date/Time: Monday, May 01, 2017 13:13 - CONCLUSION: Uncomplicated nasogastric tube placement as above. Zain Kumar MD Lower Extremity Ultrasound 04/28/17 0000 Signed Impressions: Service Date/Time: Friday, April 28, 2017 16:47 - CONCLUSION: Negative exam with no evidence of deep venous thrombosis. Johnathon White MD Chest CT 04/28/17 0000 Signed Impressions: Service Date/Time: Friday, April 28, 2017 11:03 - CONCLUSION: 1. Small bilateral pleural effusions with atelectasis in both lower lobes. There is also a focal area of groundglass opacity in the lingula that is nonspecific but could represent an infectious or inflammatory process. 2. Moderate size hiatal hernia with dilated and fluid-filled esophagus suggesting gastroesophageal reflux. The nasogastric tube distal tip is in the distal esophagus and should ideally be advanced into the stomach. Olu Triana MD Head CT 04/27/17 1017 Signed Impressions: Service Date/Time: Thursday, April 27, 2017 11:00 - CONCLUSION: 1. No acute intracranial abnormality. 2. Complete opacification left maxillary sinus. Keagan Shipman MD Renal Ultrasound 04/27/17 0000 Signed Impressions: Service Date/Time: Thursday, April 27, 2017 23:50 - CONCLUSION: Negative renal sonogram. Rogerio Gunn MD Objective Remarks GENERAL: 61 year old male critically ill currently orotracheally intubated SKIN: Warm and dry. No rash HEAD: Normocephalic. EYES: No scleral icterus. Pupils are round 3 mm bilaterally and reactive No injection or drainage. ENT: Critically intubated. moderate amount of ET tube secretions NECK: Supple, trachea midline. No JVD or lymphadenopathy. Right IJ is clean dry and intact CARDIOVASCULAR: RRR. S1, S2 no S4 without murmur RESPIRATORY: Breath sounds equal bilaterally. No accessory muscle use. Basilar crackles GASTROINTESTINAL: Distended. Tenderness to deep palpation. No guarding. No rigidity. Hypoactive bowel sounds appreciated throughout. MUSCULOSKELETAL: No significant peripheral edema Neuro: Intubated sedated. Eyes are spontaneously open. Intermittently follows commands with upper extremities. Moves all 4 extremities Date of Insertion: Apr 28, 2017 Line: Central Venous Catheter Side: Right Location: Femoral A/P Assessment and Plan Neuro/Psych: Acute encephalopathy likely secondary to EtOH withdrawal/sepsis/hyperammonemia Alcohol dependence Fentanyl infusion discontinued due to likely ileus. Dexmedetomidine for sedation to facilitate ventilator weaning Goal of RA SS -0. Daily sedation vacation Thiamine, folate and multivitamin daily CT brain 04/27 revealed left maxillary sinusitis otherwise no acute intra- cranial findings Patient does have a history of EtOH withdrawal seizures. Seizure precautions CV: Severe sepsis Lactic acidosis- cleared Monitor HR and BP keep MAP>65mmHg Norepinephrine as needed to keep map above 65, currently off Resp: Acute respiratory failure- intubated 04/28, self extubated 05/05 reintubated 05/08 COPD Ongoing tobaccoism Due to possible mucous plugging left lower lobe on CAT scan 05/12. s/p bronchoscopy 05/13 with removal of mucous plug. Continue with vent support ACV 16/550/5/35 keep sat >92%. Albuterol/ipratropium aerosols every 6 hours and albuterol aerosols every 2 hours. PRN ICU vent bundle. Combined vent day 15. SBT Extubate today. Hopefully patient may be able to participate in medical decision making Decadron post extubation 4 doses. Racemic epi if needed s/p bronch with BAL 05/08: Thick secretions/mucous plug left main stem bronchus suctioned to clear CXR post bronch showed improved aeration left lung. Nicotine patch 14 mg daily. GI: Hyperammonemia Ileus Elevated AST Hypoalbuminemia- mild protein calorie malnutrition Hiatal hernia Sigmoid diverticulosis Hepatic steatosis Currently holding tube feeds-Jevity 1.5 at goal 60 cc an hour. f On lactulose 30 cc every 6 hours and Xifaxan 550 mg by mouth twice a day for elevated ammonia. CT abdomen/pelvis 05/12 revealed thickening ascending colon/small bowel dilatation/ileus. KUB 05/14 Improving bowel distention KUB 05/09: Mild improvements in bowel gas pattern. KUB 05/07: Decreased colonic distention s/p decompressive colonoscopy 05/06: Stool throughout the colon, Decompression colon tube was placed 05/05 CT abdomen/pelvis: showed development of gaseous distention of the right and transverse colon with abrupt change in luminal dimension at the splenic flexure. There is a rectal tube in place and cannot differentiate between a focal obstruction/stricture versus decompression from the rectal tube. For decompressive colonoscopy today. Recta KUB abdomen 05/04 showed severe ileus, cecum dilated to 10 cm s/p EGD 04/30: Esophagitis, gastritis, food impaction in distal esophagus removed. Pantoprazole for GI prophylaxis. Docusate sodium/senna 1 tablet twice a day for bowel regimen Continue Reglan : Right kidney nonobstructing stone 3 mm Renal ultrasound revealed no hydronephrosis Free water 250ml Q8.. Monitor sodium level. Monitor renal function, I/O's, electrolytes replacement per protocol. IV Lasix 40 mg x1 today Endo: Sliding-scale insulin to maintain euglycemia with Accu-Cheks every 6 hours with low regimen with Novulin R TSH: 3.14 04/28 Heme: Leukocytosis Macrocytic anemia Patient was transfused 2 pack platelets and 2 PRBC 04/28. Follow CBC daily. Monitor trends. ID: Possible C. difficile colitis Aspiration pneumonia, GNR in sputum Per infectious disease on linezolid, cefepime and metronidazole s/p Zosyn 04/27- 05/06)monitor for signs of infections ( Fever, WBC) Afebrile, Follow up on BAL results 05/09 and 05/13- NGTD. Sputum GNR Pertinent cultures Blood cultures 2 -04/27 -no growth to date Urine culture - 04/27 -50 - 100,000 mixed gram-positive Sputum 04/28- normal resp andrea Urine pneumococcal and Legionella antigens negative MSK: PT evaluate and treat Access -RIJ CVL placed 05/12 Prophylaxis - GI - pantoprazole - DVT - SCD/ Heparin SQ , Critical care time 30 minutes Palliative care following to address goals of care. After extubation hopefully patient will be able to participate in his own medical decision making Esteban Raines MD May 15, 2017 10:23
[2017-05-15] MEDS: BUDESONIDE-FORMOTEROL 160/4.5 MCG INHALER INH SCH ×2 (10:30→21:00)
[2017-05-15] MEDS ORDERED: ETOMIDATE 40 MG/20 ML VIAL ONE (10:39)
[2017-05-15] MEDS ORDERED: MIDAZOLAM HCL 5 MG/ML VIAL (1 ML) ONE (10:40)
--- NOTE | 2017-05-15 10:54 | PD.PROCEDR ---
Procedure Note Procedure PROCEDURE: Orotracheal intubation INDICATION: Acute respiratory failure, tachypnea DETAILS OF PROCEDURE The patient was placed in optimal position and preoxygenated with 100% FiO2 via BiPAP and then bag valve mask. At the start oxygen saturation was 100%. The patient was administered 20 mg etomidate IV, 5 mg IV Versed and 50 milligrams rocuronium IV. I entered the oropharynx with a size 4 Mac blade and obtained a grade 2 view of the airway. On single attempt a size 8.0 cuffed endotracheal tube was passed through the vocal cords. Correct tube location was confirmed with end tidal CO2 detector and by auscultating over bilateral lung escalante. The endotracheal tube was secured with adhesive tape at a depth of 24 cm at the lips. The patient was connected to the ventilator. The patient tolerated the procedure well without any apparent complications. Oxygen saturations were maintained greater than 95% all times. STAT chest x-ray pending at time of dictation. Esteban Raines MD May 15, 2017 10:54
--- NOTE | 2017-05-15 10:58 | HHI.HCPN ---
Reason for visit a. To assist with evaluation and management of symptoms including: encephalopathy, dyspnea, malnutrition b. To assist medical decision maker(s) with: better understanding of current medical conditions; weighing benefits/burdens of medical treatment options; making medical treatment decisions. Subjective/Interval History Pt seen today to follow up on comfort, goals with possible decision maker. Notified by outreach team member pt medically extubated this am, seen with outreach team member to evaluate pt to possibly participate in decision making or evaluate if able to name HCS. Pt on Bipap, dyspneic, RR 28. He is awake, but speaking unintelligibly, moving extremities and gesturing but does not follow simple commands. Does not appear to have insight or ability to make decisions. Reintubated by Critical care. He continues to have mucous, issues protecting airway-- will likely require (temporary?) trach to facilitate vent weaning, + PEG. H&H downtrending 7.6/. Hypokalemic,3.3, repletion per critical care. CXR today "Probable slight improvement in aeration". Accurint report to locate estranged spouse pending; further discussion RE goals /decisions pending ID of approp decision maker. Will call to update mother/ sister once I have any findings from today's accurint search Family/friend interactions [id number] UPDATE : Met w pt mother Alana Webb at bedside. Review of recent trajectory and history. Review of current conditions, clinical assessment, failed extubation this morning. Review of legal decision maker status and attempts to locate patient estranged spouse. Review that technically legal decision making would fall to the son whom they have indicated defers to mother Alana. She affirms this though Ms Webb indicates she has been in close communication with patient's son Joseph in [place] as well as patient's sister Zakia who is an RN in [place]. They all are working together on decision-making. Exploration of treatment options going forward including the possibility of a tracheostomy and PEG tube to allow patient more time on a ventilator to improve/ stabilize medical conditions, likely he would then need placement in a nursing facility, unlikely he would be able to return home given prolonged hospital course and recent trajectory of decline. Alternatively Explore that if patient would not want further invasive measures such as tracheostomy, PEG tube etc. and the options would be to de-escalate and transition to comfort focus. Exploration of CODE STATUS and risks/benefits/ limitations of CPR She indicates that most recently when EMS arrived to the patient home when mother could not get him up that he was refusing to go to the hospital but she insisted. They do not think that he would want a tracheostomy or to be sustained on artificial measures such as a ventilator or tube feeding for any prolonged length of time. Ms Webb indicates that Zakia and the patient had previously had conversations regarding advanced illness and ventilation etc., And that was when the patient made those indications. Son Joseph will be arriving in town this coming weekend they will continue to discuss as a family in the coming days, as well as monitor patient for clinical progress and/or setbacks; patient mother indicates they will not make any decisions regarding tracheostomy etc. until son Joseph arrived. They will talk about CODE STATUS in the coming days, no decision made today regarding CODE STATUS. Advance Directives Living Will: Never completed Health Care Surrogate: Never completed Durable Power of Media Account Executive: Never completed Objective Vital Signs Date Time Temp Pulse Resp B/P (MAP) Pulse Ox O2 Delivery O2 Flow Rate FiO2 05/15/17 10:01 99 Nasal Cannula 4 05/15/17 09:28 35 05/15/17 09:28 100 35 05/15/17 08:07 100 35 05/15/17 06:00 76 05/15/17 04:26 100 35 05/15/17 04:00 97.1 68 21 100/70 (80) 100 05/15/17 04:00 68 05/15/17 04:00 35 05/15/17 02:00 68 05/15/17 00:00 65 05/15/17 00:00 97.3 65 17 111/78 (89) 100 05/15/17 00:00 35 05/14/17 23:56 100 35 05/14/17 22:00 69 05/14/17 20:00 97.6 81 25 126/71 (89) 100 05/14/17 20:00 81 05/14/17 20:00 35 05/14/17 19:37 100 35 05/14/17 18:45 74 05/14/17 18:45 74 22 104/72 (83) 100 05/14/17 18:31 74 05/14/17 18:31 74 20 112/76 (88) 100 05/14/17 18:15 79 25 107/77 (87) 100 05/14/17 18:15 79 05/14/17 18:01 79 25 101/72 (82) 05/14/17 18:01 79 05/14/17 18:00 82 25 05/14/17 18:00 82 05/14/17 17:46 79 26 115/83 (94) 05/14/17 17:15 80 26 131/80 (97) 05/14/17 17:00 80 21 125/75 (92) 05/14/17 16:45 79 24 128/84 (99) 05/14/17 16:30 80 27 121/77 (92) 05/14/17 16:16 79 21 111/86 (94) 05/14/17 16:01 79 21 128/71 (90) 05/14/17 16:00 79 23 05/14/17 16:00 79 05/14/17 16:00 35 05/14/17 15:45 79 05/14/17 15:30 79 05/14/17 15:15 81 05/14/17 15:08 86 05/14/17 15:05 100 35 05/14/17 15:03 84 05/14/17 15:01 85 05/14/17 14:45 86 05/14/17 14:30 84 05/14/17 14:15 85 05/14/17 14:00 84 05/14/17 13:45 86 05/14/17 13:30 89 05/14/17 13:15 93 05/14/17 13:01 94 05/14/17 12:45 84 05/14/17 12:30 83 05/14/17 12:16 83 35 128/59 (82) 100 05/14/17 12:16 83 05/14/17 12:16 83 05/14/17 12:04 100 35 05/14/17 12:01 83 05/14/17 12:01 83 34 105/60 (75) 100 05/14/17 12:01 83 05/14/17 12:00 81 32 100 05/14/17 12:00 81 05/14/17 12:00 81 05/14/17 12:00 35 05/14/17 11:45 81 05/14/17 11:45 81 35 110/62 (78) 100 05/14/17 11:30 81 35 112/67 (82) 100 05/14/17 11:30 81 05/14/17 11:16 81 05/14/17 11:16 81 33 134/78 (96) 100 05/14/17 11:01 83 34 97/55 (69) 100 05/14/17 11:01 83 Intake & Output 05/15/17 05/15/17 07:00 19:00 Intake Total 2350 ml Output Total 1200 ml Balance 1150 ml IV Total 1421 ml Tube Feeding 449 ml Other 480 ml Output Urine Total 1200 ml Physical Exam CONSTITUTIONAL/GENERAL: This is an adequately nourished patient, awake mildly restless/ on Bipap TUBES/LINES/DRAINS: Peripheral IV left upper extremity, right IJ central line, BIPAP, NG tube, Young catheter, rectal tube, soft restraints upper extremities SKIN: No jaundice, rashes, or lesions. scattered Ecchymoses on upper extremities. No wounds seen anteriorly. Skin warm. CARDIOVASCULAR: Regular rate and rhythm without murmurs, tachy 110. . Peripheral pulses symmetric.+2+ edema BUE, BLE RESPIRATORY/CHEST: Symmetric, mildly labored respirations. +tachypneic. Coarse scattered rhonchi. Breath sounds equal bilaterally. GASTROINTESTINAL: Abdomen soft, mildly distended, bowel sounds normoactive, tube feed infusing via NG tube. No palpable masses. n apparent tenderness. No apparent tenderness. GENITOURINARY: Without palpable bladder distension. Young catheter in place. MUSCULOSKELETAL: Extremities without clubbing, cyanosis. 2-3 + edema to upper and lower extremities. No joint effusion noted. NEUROLOGICAL: Awake tracks examiners. Does not follow any simple commands. He de gestures, speaking garbled/unintelligible. He does move extremities weakly, spontaneously. PSYCHIATRIC: Mild restlessness Diagnostic Tests Laboratory Laboratory Tests Test 05/12/17 14:47 05/13/17 05:00 05/13/17 12:45 05/13/17 18:30 Stool C. difficile Toxin (PCR) NEGATIVE (NEGATIVE) NEGATIVE (NEGATIVE) Stl C. difficile Toxin Epiderm 027 PRESUMPTIVE NEGATIVE PRESUMPTIVE NEGATIVE White Blood Count 9.3 TH/MM3 (4.0-11.0) Red Blood Count 2.30 MIL/MM3 (4.50-5.90) Hemoglobin 8.1 GM/DL (13.0-17.0) Hematocrit 24.3 % (39.0-51.0) Mean Corpuscular Volume 105.8 FL (80.0-100.0) Mean Corpuscular Hemoglobin 35.3 PG (27.0-34.0) Mean Corpuscular Hemoglobin Concent 33.4 % (32.0-36.0) Red Cell Distribution Width 24.1 % (11.6-17.2) Platelet Count 171 TH/MM3 (150-450) Mean Platelet Volume 10.7 FL (7.0-11.0) Neutrophils (%) (Auto) 72.9 % (16.0-70.0) Lymphocytes (%) (Auto) 8.2 % (9.0-44.0) Monocytes (%) (Auto) 15.7 % (0.0-8.0) Eosinophils (%) (Auto) 2.5 % (0.0-4.0) Basophils (%) (Auto) 0.7 % (0.0-2.0) Neutrophils # (Auto) 6.8 TH/MM3 (1.8-7.7) Lymphocytes # (Auto) 0.8 TH/MM3 (1.0-4.8) Monocytes # (Auto) 1.5 TH/MM3 (0-0.9) Eosinophils # (Auto) 0.2 TH/MM3 (0-0.4) Basophils # (Auto) 0.1 TH/MM3 (0-0.2) CBC Comment DIFF FINAL Differential Comment Blood Urea Nitrogen 17 MG/DL (7-18) Creatinine 0.70 MG/DL (0.60-1.30) Random Glucose 111 MG/DL (74-106) Total Protein 5.3 GM/DL (6.4-8.2) Albumin 2.3 GM/DL (3.4-5.0) Calcium Level 7.7 MG/DL (8.5-10.1) Phosphorus Level 2.7 MG/DL (2.5-4.9) Magnesium Level 1.8 MG/DL (1.5-2.5) Alkaline Phosphatase 74 U/L (45-117) Aspartate Amino Transf (AST/SGOT) 22 U/L (15-37) Alanine Aminotransferase (ALT/SGPT) 14 U/L (12-78) Total Bilirubin 1.0 MG/DL (0.2-1.0) Sodium Level 134 MEQ/L (136-145) Potassium Level 3.6 MEQ/L (3.5-5.1) Chloride Level 100 MEQ/L (98-107) Carbon Dioxide Level 26.1 MEQ/L (21.0-32.0) Anion Gap 8 MEQ/L (5-15) Estimat Glomerular Filtration Rate 115 ML/MIN (>89) Lactic Acid Level 1.3 mmol/L (0.4-2.0) Ammonia 45 MCMOL/L (11-32) Amylase Level 5 U/L (25-115) Lipase 33 U/L (73-393) Bronchoalveolar Lavage WBC 580 /MM3 Bronchoalveolar Lavage RBC 3080 /MM3 Bronchoalveolar Lavage Neutrophils 91 % Bronchoalveolar Lavage Lymphocytes 2 % Bronchoalveolar Lavage Eosinophils 1 % Bronchoalveolar Lavage Histiocytes 6 % Bronchoalveolar Lavage Diff Comment Lavage Fluid Total Volume 18.0 ML Lavage Fluid Total WBC Count 10.440 MILLION (4.700-7.100) Test 05/14/17 04:10 05/15/17 04:00 White Blood Count 7.8 TH/MM3 (4.0-11.0) 6.3 TH/MM3 (4.0-11.0) Red Blood Count 2.18 MIL/MM3 (4.50-5.90) 2.18 MIL/MM3 (4.50-5.90) Hemoglobin 7.7 GM/DL (13.0-17.0) 7.6 GM/DL (13.0-17.0) Hematocrit 23.0 % (39.0-51.0) 23.2 % (39.0-51.0) Mean Corpuscular Volume 105.6 FL (80.0-100.0) 106.4 FL (80.0-100.0) Mean Corpuscular Hemoglobin 35.1 PG (27.0-34.0) 35.0 PG (27.0-34.0) Mean Corpuscular Hemoglobin Concent 33.3 % (32.0-36.0) 33.0 % (32.0-36.0) Red Cell Distribution Width 23.9 % (11.6-17.2) 24.0 % (11.6-17.2) Platelet Count 157 TH/MM3 (150-450) 152 TH/MM3 (150-450) Mean Platelet Volume 11.3 FL (7.0-11.0) 11.3 FL (7.0-11.0) Neutrophils (%) (Auto) 72.4 % (16.0-70.0) 71.3 % (16.0-70.0) Lymphocytes (%) (Auto) 8.2 % (9.0-44.0) 9.5 % (9.0-44.0) Monocytes (%) (Auto) 16.1 % (0.0-8.0) 15.2 % (0.0-8.0) Eosinophils (%) (Auto) 2.9 % (0.0-4.0) 3.5 % (0.0-4.0) Basophils (%) (Auto) 0.4 % (0.0-2.0) 0.5 % (0.0-2.0) Neutrophils # (Auto) 5.7 TH/MM3 (1.8-7.7) 4.5 TH/MM3 (1.8-7.7) Lymphocytes # (Auto) 0.6 TH/MM3 (1.0-4.8) 0.6 TH/MM3 (1.0-4.8) Monocytes # (Auto) 1.3 TH/MM3 (0-0.9) 1.0 TH/MM3 (0-0.9) Eosinophils # (Auto) 0.2 TH/MM3 (0-0.4) 0.2 TH/MM3 (0-0.4) Basophils # (Auto) 0.0 TH/MM3 (0-0.2) 0.0 TH/MM3 (0-0.2) CBC Comment DIFF FINAL DIFF FINAL Differential Comment Blood Urea Nitrogen 13 MG/DL (7-18) 8 MG/DL (7-18) Creatinine 0.56 MG/DL (0.60-1.30) 0.37 MG/DL (0.60-1.30) Random Glucose 103 MG/DL (74-106) 105 MG/DL (74-106) Calcium Level 7.7 MG/DL (8.5-10.1) 8.0 MG/DL (8.5-10.1) Phosphorus Level 2.6 MG/DL (2.5-4.9) Magnesium Level 1.6 MG/DL (1.5-2.5) 1.4 MG/DL (1.5-2.5) Sodium Level 133 MEQ/L (136-145) 137 MEQ/L (136-145) Potassium Level 3.1 MEQ/L (3.5-5.1) 3.3 MEQ/L (3.5-5.1) Chloride Level 99 MEQ/L (98-107) 104 MEQ/L (98-107) Carbon Dioxide Level 25.9 MEQ/L (21.0-32.0) 24.6 MEQ/L (21.0-32.0) Anion Gap 8 MEQ/L (5-15) 8 MEQ/L (5-15) Estimat Glomerular Filtration Rate 149 ML/MIN (>89) 240 ML/MIN (>89) Total Protein 5.2 GM/DL (6.4-8.2) Albumin 2.7 GM/DL (3.4-5.0) Alkaline Phosphatase 82 U/L (45-117) Aspartate Amino Transf (AST/SGOT) 21 U/L (15-37) Alanine Aminotransferase (ALT/SGPT) 11 U/L (12-78) Total Bilirubin 0.7 MG/DL (0.2-1.0) Result Diagram: 05/15/17 0400 05/15/17 0400 Microbiology Microbiology Date/Time Source Procedure Growth Status 05/13/17 12:45 Bronchial Washings Left Upper Lobe Fungal Smear Pending Received 05/13/17 12:45 Bronchial Washings Left Upper Lobe Fungal Culture Pending Received 05/13/17 12:45 Bronchial Washings Left Lower Lobe Acid Fast Stain Pending Received 05/13/17 12:45 Bronchial Washings Left Lower Lobe Mycobacterial Culture Pending Received 05/13/17 12:45 Bronchial Washings Left Lower Lobe Gram Stain - Final Resulted 05/13/17 12:45 Bronchial Washings Left Lower Lobe Bronchial Culture - Preliminary NO GROWTH IN 24 HOURS. Resulted 05/13/17 05:30 Sputum Endotracheal Gram Stain - Final Resulted 05/13/17 05:30 Sputum Culture - Preliminary Gram Negative Mk Resulted Imaging Last Impressions Chest X-Ray 05/15/17 06 Signed Impressions: Service Date/Time: Monday, May 15, 2017 04:04 - CONCLUSION: Probable slight improvement in aeration. Olu Rodriguez MD Abdomen X-Ray 05/14/17 0600 Signed Impressions: Service Date/Time: Sunday, May 14, 2017 04:05 - CONCLUSION: Improved bowel gas pattern Olu Rodriguez MD Abdomen/Pelvis CT 05/12/17 0000 Signed Impressions: Service Date/Time: Friday, May 12, 2017 17:56 - CONCLUSION: 1. Left lower lobe collapse and lingular consolidation. Endobronchial soft tissue within the left lower lobe, Mass versus mucus plugging are differential diagnostic considerations. 2. Body wall edema and ascites. 3. Nonobstructing right renal calculus. 4. Colitis with abnormal bowel wall thickening involving the ascending colon, and diffuse small bowel dilatation characteristic of an ileus. Ray Finney MD Chest Ultrasound 05/08/17 0000 Signed Impressions: Service Date/Time: Monday, May 08, 2017 13:01 - CONCLUSION: 1. There is a small left pleural effusion with insufficient volume for thoracentesis at this time. Ronaldo Howell MD Abdomen Fluoroscopy 05/01/17 0000 Signed Impressions: Service Date/Time: Monday, May 01, 2017 13:13 - CONCLUSION: Uncomplicated nasogastric tube placement as above. Zain Kumar MD Lower Extremity Ultrasound 04/28/17 0000 Signed Impressions: Service Date/Time: Friday, April 28, 2017 16:47 - CONCLUSION: Negative exam with no evidence of deep venous thrombosis. Johnathon White MD Chest CT 04/28/17 0000 Signed Impressions: Service Date/Time: Friday, April 28, 2017 11:03 - CONCLUSION: 1. Small bilateral pleural effusions with atelectasis in both lower lobes. There is also a focal area of groundglass opacity in the lingula that is nonspecific but could represent an infectious or inflammatory process. 2. Moderate size hiatal hernia with dilated and fluid-filled esophagus suggesting gastroesophageal reflux. The nasogastric tube distal tip is in the distal esophagus and should ideally be advanced into the stomach. Olu Triana MD Head CT 04/27/17 1017 Signed Impressions: Service Date/Time: Thursday, April 27, 2017 11:00 - CONCLUSION: 1. No acute intracranial abnormality. 2. Complete opacification left maxillary sinus. Keagan Shipman MD Renal Ultrasound 04/27/17 0000 Signed Impressions: Service Date/Time: Thursday, April 27, 2017 23:50 - CONCLUSION: Negative renal sonogram. Rogerio Gunn MD Procedures 04/28 intubated 04/30 EGD 05/05 self extubated 05/06 decompressive colonoscopy 05/08 reintubated 05/12 decompressive colonoscopy . Assessment and Plan Disease Oriented Problem List: (1) Acute encephalopathy (2) Severe sepsis (3) COPD (chronic obstructive pulmonary disease) (4) Hyperammonemia (5) Hypoalbuminemia due to protein-calorie malnutrition (6) Hiatal hernia (7) Diverticulosis, sigmoid (8) Kidney stone on right side (9) Aspiration pneumonia (10) Hypokalemia (11) Hypomagnesemia (12) UTI (urinary tract infection) (13) Chronic alcoholism Symptom Scale: (1) Dyspnea (2) Malnutrition (3) Encephalopathy (4) Anxiety Pertinent Non-Medical Issues Psychosocial:Patient estranged from second , but still legally to her name Caty Webb. 2 adult children from a prior marriage-- one child reported to be disabled and dependent for care center not able to participate, the other son in Jon lives in [place] and has apparently remained in communication with patient mother though not in close communication with patient. Patient supported by sister Zakia who is an RN, she lives in [place]. Also supported by mother Dallas. Family reports has struggled with alcoholism his whole life. Has not worked in some time secondary to this. Has been in [place] about 10 years. 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 Spiritual: Spiritism Legal:Patient is currently unable to participate in decision-making due to clinical condition. Not clear if he will regain capacity. He may still be legally to his , though they have been . If he is still then this would be the appropriate legal proxy per statutes if she wished to serve as such. If she did not wish to serve or is not still legally then this decision-making would fall to the 2 adult children, it is reported that one is debilitated and wants deferred to the patient's mother. If this were the case and other potential proxies are exhausted then the mother may be appropriate legal decision maker. ======= discussion with patient's sister Zakia who indicates patient was still legally to second Caty Webb who last resided in [facility] unknown. In this case we need to do due diligence to attempt to locate legal to determine if she wishes to participate in decision-making. If she is not able to be located, or does not wish to participate, then can move on to son who apparently defers to mother who will make decisions involving son and sister. Order for case management to assist with ACCURINT search. Ethical issues impacting care: Important Contacts Dallas Webb/mother [phone] Zakia Moore [phone] sister . Prognosis This patient was admitted for altered mental status. He has had ongoing hepatic encephalopathy and debility secondary to alcohol abuse. This admission he has been intubated twice, is currently being treated for aspiration pneumonia. GI following, pathology from colonoscopy biopsies pending. Overall prognosis for meaningful recovery and independent function is poor given his history. Possible he can survive current acute hospitalization but would likely require tracheostomy and PEG tube to continue invasive/aggressive measures. . Code Status: Full Code Plan * Legal decision maker: Patient is currently unable to participate in decision- making due to clinical condition. Not clear if he will regain capacity. He may still be legally to his , though they have been . If he is still then this would be the appropriate legal proxy per statutes if she wished to serve as such. If she did not wish to serve or is not still legally then this decision-making would fall to the 2 adult children, it is reported that one is debilitated and wants deferred to the patient's mother. If this were the case and other potential proxies are exhausted then the mother may be appropriate legal decision maker. ======= discussion with patient's sister Zakia who indicates patient was still legally to second Caty Webb who last resided in [facility] unknown. In this case we need to do due diligence to attempt to locate legal to determine if she wishes to participate in decision-making. If she is not able to be located, or does not wish to participate, then can move on to son who apparently defers to mother who will make decisions involving son and sister. Order for case management to assist with ACCURINT search. 05/15/17-----accurints pending; decisions/goals pending ID of appropriate decision maker 05/15/17 1600 UPDATE-- unable to locate estranged via ACCURINT search, per financial office * Goals: TBD/pending identification of appropriate legal decision maker. Patient apparently still legally though has long been from his second . Patient's sister and mother have verbalized that patient would not want to continue with prolonged life support and would not want a tracheostomy or PEG tube, they have voiced that he would instead want comfort measures. 05/15/17-----accurints pending; decisions/goals pending ID of appropriate decision maker 05/15/17 1600----patient mother, son, sister working together in decision- making.Dane Ruiz will be arriving in town this coming weekend they will continue to discuss as a family in the coming days, as well as monitor patient for clinical progress and/or setbacks; patient mother indicates they will not make any decisions regarding tracheostomy etc. until dane Ruiz arrived. They will talk about CODE STATUS in the coming days, no decision made today regarding CODE STATUS. * CODE STATUS:Full code * SYMPTOMS: --Dyspnea-second intubation this hospital admission for acute respiratory failure.+ Aspiration pneumonia, as well as significant encephalopathy and inability to protect his airway; will likely require tracheostomy and PEG tube for longer-term aggressive interventions if goals aggressive. medically extubated today; reintubated shortly after. Now breathing comfortably on mech vent --Encephalopathy-hepatic,? Sepsis. Ammonia level has remained elevated despite lactulose, Xifaxan. last level 45 --Malnutrition-patient with long history alcohol abuse chronic malnutrition likely given this diagnoses; albumin 2.3. Started on slow rate tube feeding, tolerating thus far. --Anxiety/agitation-multifactorial, history EtOH abuse, has required Precedex drip and other sedatives while on mechanical vent. just reintubated for resp distress; sedation just resumed, will continue to evaluate * Palliative care will continue to follow during hospital course as condition evolves, to assist patient/decision-maker with understanding of medical conditions, weighing benefits/burdens of treatment options, for clarification of goals of treatment. Additionally will assist with any symptoms of palliative concern . Time Spent Total Floor Time (mins): 30 (time spent d/w critical care, RN) Attestation To help prompt me to consider important information that might be impacting today's encounter and assessment, information from prior notes written by myself or my colleagues may have been "brought forward" into today's note. My signature on this note, however, is an attestation that I personally performed the exam, history, and/or decision-making noted today, and, unless otherwise indicated, the interactions with patient, family, and staff as well as the review of records all occurred today. I also attest that the listed assessment and stated plan reflect my best clinical judgment today based on the combination of historical information, prior notes, and today's exam/ interactions. When time spent is documented, it refers only to time spent today by the signer, or if indicated, combined time spent today by collaborating physician/nurse practitioner. Gregoria Loyd May 15, 2017 10:58
[2017-05-15] MEDS ORDERED: POTASSIUM CHLORIDE INJ 40 MEQ in SODIUM CHLORID 0.9% 500 ML INJ 500 ML IV-CENTRAL ONE (12:00)
--- NOTE | 2017-05-15 12:22 | RADRPT ---
EXAM DATE/TIME: 05/15/2017 11:41 [facility] COMPARISON: CHEST SINGLE AP, May 15, 2017, 4:04. INDICATIONS : Intubation. MEDICAL HISTORY : Chronic obstructive pulmonary disease. SURGICAL HISTORY : None. ENCOUNTER: Subsequent ACUITY: 3 weeks PAIN SCORE: Non-responsive. LOCATION: Bilateral chest FINDINGS: The ET tube and central line are in good position. There is varus enlarged. There is consolidation an d effusion at the left lung base. There is diffuse interstitial prominence suggesting congestive fail ure. CONCLUSION: 1. ET tube and central line in satisfactory position. 2. Consolidation and effusion at the left base. The appearance of the parenchyma is stable compared t o previous. Zain Kumar MD on May 15, 2017 at 12:20 Board Certified Radiologist. This report was verified electronically.
--- NOTE | 2017-05-15 14:31 | HHI.GIFU ---
Subjective Remarks Pt was extubated earlier today, but required reintubation. Abdomen mildly distended. + stool in flexiseal. (Kathrin Carreno) Objective Vitals I&O Vital Signs Date Time Temp Pulse Resp B/P (MAP) Pulse Ox O2 Delivery O2 Flow Rate FiO2 05/15/17 13:34 97 35 05/15/17 10:30 100 50 05/15/17 10:01 99 Nasal Cannula 4 05/15/17 09:28 35 05/15/17 09:28 100 35 05/15/17 08:07 100 35 05/15/17 06:00 76 05/15/17 04:26 100 35 05/15/17 04:00 97.1 68 21 100/70 (80) 100 05/15/17 04:00 68 05/15/17 04:00 35 05/15/17 02:00 68 05/15/17 00:00 65 05/15/17 00:00 97.3 65 17 111/78 (89) 100 05/15/17 00:00 35 05/14/17 23:56 100 35 05/14/17 22:00 69 05/14/17 20:00 97.6 81 25 126/71 (89) 100 05/14/17 20:00 81 05/14/17 20:00 35 05/14/17 19:37 100 35 05/14/17 18:45 74 05/14/17 18:45 74 22 104/72 (83) 100 05/14/17 18:31 74 05/14/17 18:31 74 20 112/76 (88) 100 05/14/17 18:15 79 25 107/77 (87) 100 05/14/17 18:15 79 05/14/17 18:01 79 25 101/72 (82) 05/14/17 18:01 79 05/14/17 18:00 82 25 05/14/17 18:00 82 05/14/17 17:46 79 26 115/83 (94) 05/14/17 17:15 80 26 131/80 (97) 05/14/17 17:00 80 21 125/75 (92) 05/14/17 16:45 79 24 128/84 (99) 05/14/17 16:30 80 27 121/77 (92) 05/14/17 16:16 79 21 111/86 (94) 05/14/17 16:01 79 21 128/71 (90) 05/14/17 16:00 79 23 05/14/17 16:00 79 05/14/17 16:00 35 05/14/17 15:45 79 05/14/17 15:30 79 05/14/17 15:15 81 05/14/17 15:08 86 05/14/17 15:05 100 35 05/14/17 15:03 84 05/14/17 15:01 85 05/14/17 14:45 86 05/14/17 14:30 84 I/O 05/14/17 05/14/17 05/14/17 05/15/17 05/15/17 05/15/17 06:59 14:59 22:59 06:59 14:59 22:59 Intake Total 1859 ml 1155 ml 2350 ml Output Total 50 ml 2600 ml 1200 ml Balance 1809 ml -1445 ml 1150 ml IV Total 1859 ml 755 ml 1421 ml Tube Feeding 449 ml Other 400 ml 480 ml Output Urine Total 50 ml 2600 ml 1200 ml # Bowel Movements 2 5 Laboratory Laboratory Tests Test 05/15/17 04:00 White Blood Count 6.3 Red Blood Count 2.18 Hemoglobin 7.6 Hematocrit 23.2 Mean Corpuscular Volume 106.4 Mean Corpuscular Hemoglobin 35.0 Mean Corpuscular Hemoglobin Concent 33.0 Red Cell Distribution Width 24.0 Platelet Count 152 Mean Platelet Volume 11.3 Neutrophils (%) (Auto) 71.3 Lymphocytes (%) (Auto) 9.5 Monocytes (%) (Auto) 15.2 Eosinophils (%) (Auto) 3.5 Basophils (%) (Auto) 0.5 Neutrophils # (Auto) 4.5 Lymphocytes # (Auto) 0.6 Monocytes # (Auto) 1.0 Eosinophils # (Auto) 0.2 Basophils # (Auto) 0.0 CBC Comment DIFF FINAL Differential Comment Blood Urea Nitrogen 8 Creatinine 0.37 Random Glucose 105 Total Protein 5.2 Albumin 2.7 Calcium Level 8.0 Magnesium Level 1.4 Alkaline Phosphatase 82 Aspartate Amino Transf (AST/SGOT) 21 Alanine Aminotransferase (ALT/SGPT) 11 Total Bilirubin 0.7 Sodium Level 137 Potassium Level 3.3 Chloride Level 104 Carbon Dioxide Level 24.6 Anion Gap 8 Estimat Glomerular Filtration Rate 240 Date/Time Source Procedure Growth Status 04/27/17 14:15 Blood Peripheral Aerobic Blood Culture - Final NO GROWTH IN 5 DAYS Complete 04/27/17 14:15 Blood Peripheral Anaerobic Blood Culture - Final NO GROWTH IN 5 DAYS Complete 05/13/17 12:45 Bronchial Washings Left Upper Lobe Fungal Smear Pending Received 05/13/17 12:45 Bronchial Washings Left Upper Lobe Fungal Culture Pending Received 05/06/17 07:50 Urine Catheterized Urine Urine Culture - Final NO GROWTH IN 48 HOURS. Complete Imaging Last Impressions Chest X-Ray 05/15/17599 Signed Impressions: Service Date/Time: Monday, May 15, 2017 04:04 - CONCLUSION: Probable slight improvement in aeration. Olu Rodriguez MD Abdomen X-Ray 05/14/17599 Signed Impressions: Service Date/Time: Sunday, May 14, 2017 04:05 - CONCLUSION: Improved bowel gas pattern Olu Rodriguez MD Abdomen/Pelvis CT 05/12/17 0000 Signed Impressions: Service Date/Time: Friday, May 12, 2017 17:56 - CONCLUSION: 1. Left lower lobe collapse and lingular consolidation. Endobronchial soft tissue within the left lower lobe, Mass versus mucus plugging are differential diagnostic considerations. 2. Body wall edema and ascites. 3. Nonobstructing right renal calculus. 4. Colitis with abnormal bowel wall thickening involving the ascending colon, and diffuse small bowel dilatation characteristic of an ileus. Ray Finney MD Chest Ultrasound 05/08/17 0000 Signed Impressions: Service Date/Time: Monday, May 08, 2017 13:01 - CONCLUSION: 1. There is a small left pleural effusion with insufficient volume for thoracentesis at this time. Ronaldo Howell MD Abdomen Fluoroscopy 05/01/17 0000 Signed Impressions: Service Date/Time: Monday, May 01, 2017 13:13 - CONCLUSION: Uncomplicated nasogastric tube placement as above. Zain Kumar MD Lower Extremity Ultrasound 04/28/17 0000 Signed Impressions: Service Date/Time: Friday, April 28, 2017 16:47 - CONCLUSION: Negative exam with no evidence of deep venous thrombosis. Johnathon White MD Chest CT 04/28/17 0000 Signed Impressions: Service Date/Time: Friday, April 28, 2017 11:03 - CONCLUSION: 1. Small bilateral pleural effusions with atelectasis in both lower lobes. There is also a focal area of groundglass opacity in the lingula that is nonspecific but could represent an infectious or inflammatory process. 2. Moderate size hiatal hernia with dilated and fluid-filled esophagus suggesting gastroesophageal reflux. The nasogastric tube distal tip is in the distal esophagus and should ideally be advanced into the stomach. Olu Triana MD Head CT 04/27/17 1017 Signed Impressions: Service Date/Time: Thursday, April 27, 2017 11:00 - CONCLUSION: 1. No acute intracranial abnormality. 2. Complete opacification left maxillary sinus. Keagan Shipman MD Renal Ultrasound 04/27/17 0000 Signed Impressions: Service Date/Time: Thursday, April 27, 2017 23:50 - CONCLUSION: Negative renal sonogram. Rogerio Gunn MD Physical Exam HEENT: Normocephalic CHEST: Resp even, mildly labored. Course breath sounds. OETT to vent. CARDIAC: RRR ABDOMEN: Soft, milldy distended, nontender, BS hypoactive. EXTREMITIES: BUE edema TESTING AND REGULATING CHIEF: Sedated on vent (Kathrin Carreon) Assessment and Plan Plan ASSESSMENT - Colonic ileus. CT Scan abdomen and pelvis with IV contrast (05/12/17)----> left lower lobe collapse and lingular consolidation. endobronchial sot tissue within left lower lobe, mass versus mucus plugging are differential diagnostic considerations. Body wall edema and ascites, nonobstructing renal calculus, colitis with abnormal bowel wall thickening involving the ascending colon, and diffuse small bowel dilatation suggesting ileus . S/P 2 SSE. S/P Relistor S/P Decompressive colonoscopy (05/06/17)----> stool throughout the colon, I did not see any masses, visualization was compromised with stool, decompression colon tube was placed. S/P Decompressive colonoscopy (05/12/17)---> Diverticulosis sigmoid poor prep, superficial ulcerations in ascending colon and cecum-biopsy with, pseudomembranes-consistent with cdiff. Pathology still pending. Stools negative for cdiff pcr. His abdomen is still soft, but slightly more distended than yesterday. Flexiseal with + BM. Pathology still pending. Cont. Miralax, Lactulose. - Colitis/pseudomembranes. CDiff vs. ischemic colitis. Stool was negative for CDiff pcr. Flagyl. Await pathology from colonoscopy. - Anemia, macrocytic. S/P EGD (04/30/17)---> Martinez esophagus, Esophagitis, Gastritis, Foreign body in the distal esophagus. Pathology reactive gastropathy. S/P 2 units RBC, 2 units Platelets. Vitamin B12 1298. PPI. HH 7.6/23.2. - Martinez's Esophagus, Esophagitis, Gastritis. Pathology reactive gastropathy. PPI - Foreign body in distal esophagus, s/p EGD. - Elevated ammonia, acute encephalopathy. Ammonia 45. Lactulose, Xifaxan. - Elevated bilirubin. CT as above. History of ETOH abuse, drinks 1/5 of vodka daily. Hypoalbuminemia with albumin 2.1. Mild coagulopathy. Suspect liver cirrhosis, likely secondary to alcohol, fatty liver disease. - Thrombocytopenia. S/P 2 platelet transfusion. - Sepsis, unclear source. Urine negative for legionella, streptococcus, bcx neg , sputum cx with light growth normal respiratory andrea. CT reveals possible pneumonia. - Respiratory failure, COPD. Extubated, but required reintubated. PLAN - Jevity 1.5, increase to GR at 60cc/hr - Await pathology - Cont. Flagyl until pathology back - Cont. Lactulose - Cont. Xifaxan - Cont. PPI - Monitor labs - Supportive care - Further recommendations to follow after results of above - Patient seen and examined by Dr. Loving and myself and this note is written on his behalf. (Kathrin Carreno) Physician Comments Seen and examined with PAINTER BOTTOM, extubated and re intubated today. Illeus improving. Await colon biopsies. (Harrison Loving MD) Kathrin Carreno May 15, 2017 14:31 Harrison Loving MD May 15, 2017 16:53
[2017-05-15] MEDS: DEXAMETHASONE SOD PHOS 4 MG/ML VIAL IV PUSH SCH ×2 (17:09→21:14)
[2017-05-15] MEDS: MAGNESIUM SULFATE INJ 2 GM in SODIUM CHLORIDE 0.9% INJ 96 ML IV PRN (17:54)
[2017-05-16] VITALS (22 sets, daily range): BP systolic 95–137; BP diastolic 61–88; PULSE 46–114; RESP 0–45; TEMP 97.6–98.2; O2SAT 95–100
[2017-05-16] MEDS: DEXMEDETOMIDINE INJ 200 MCG in SODIUM CHLORIDE 0.9% INJ 50 ML IV PRN ×2 (00:51→05:21)
[2017-05-16] MEDS: CEFEPIME INJ 2,000 MG in SODIUM CHLORIDE 0.9% INJ 100 ML IV SCH ×2 (00:52→13:21)
[2017-05-16] MEDS: ALBUMIN HUMAN 5% 25 GM/500 ML BOTTLE IV SCH ×2 (00:52→13:21)
--- NOTE | 2017-05-16 04:29 | RADRPT ---
EXAM DATE/TIME: 05/16/2017 03:28 [facility] COMPARISON: CHEST SINGLE AP, May 15, 2017, 11:41. INDICATIONS : Shortness of breath. MEDICAL HISTORY : Chronic obstructive pulmonary disease. SURGICAL HISTORY : None. ENCOUNTER: Subsequent ACUITY: 3 weeks PAIN SCORE: Non-responsive. LOCATION: Bilateral chest FINDINGS: Endotracheal tube, nasogastric tube and right neck central line are stable in good position. Dense co nsolidation in the left base is unchanged. Coarse reticular parenchymal opacities elsewhere also robby sly stable. Cardiac contours are grossly stable. CONCLUSION: No significant interval change Olu Rodriguez MD on May 16, 2017 at 4:27 Board Certified Radiologist. This report was verified electronically.
[2017-05-16] MEDS: metroNIDAZOLE 500 MG INJ 100 ML IV SCH ×3 (05:21→16:43)
[2017-05-16] MEDS: ARTIFICIAL TEARS OPTH SOLN 15 ML BTL EACH EYE SCH ×3 (05:22→22:00)
[2017-05-16] MEDS: METOCLOPRAMIDE HCL 10 MG/2 ML VIAL IV PUSH SCH ×3 (05:22→22:00)
[2017-05-16] MEDS: DEXAMETHASONE SOD PHOS 4 MG/ML VIAL IV PUSH SCH ×2 (05:22→09:21)
[2017-05-16 05:38] LABS: AUTOMATED NEUTROPHIL # 4.6 TH/MM3 (1.8-7.7); BASOPHIL % 0.3 % (0.0-2.0); EOSINOPHIL % 0.5 % (0.0-4.0); HEMATOCRIT 24.2 % (39.0-51.0); HEMO FLAGS DIFF FINAL; LYMPH % 11.7 % (9.0-44.0); LYMPHOCYTE # 0.7 TH/MM3 (1.0-4.8); MEAN CELL VOLUME 106.3 FL (80.0-100.0); MEAN CORPUSCULAR HEMOGLOBIN 34.6 PG (27.0-34.0); MEAN CORPUSCULAR HGB CONC 32.5 % (32.0-36.0); NEUT % 74.5 % (16.0-70.0); PLATELET COUNT 166 TH/MM3 (150-450); RED BLOOD COUNT 2.28 MIL/MM3 (4.50-5.90); RED CELL DISTRIBUTION WIDTH 24.2 % (11.6-17.2); WHITE BLOOD COUNT 6.2 TH/MM3 (4.0-11.0)
[2017-05-16 06:11] LABS: ANION GAP 9 MEQ/L (5-15); AST (GOT) 18 U/L (15-37); BICARBONATE 22.6 MEQ/L (21.0-32.0); BLOOD UREA NITROGEN 8 MG/DL (7-18); CHLORIDE 107 MEQ/L (98-107); GLOMERULAR FILTRATION RATE 247 ML/MIN (>89); POTASSIUM 3.4 MEQ/L (3.5-5.1); SODIUM (NA) 139 MEQ/L (136-145)
[2017-05-16 06:12] LABS: ALT (GPT) 11 U/L (12-78)
[2017-05-16 06:14] LABS: ALKALINE PHOSPHATASE 86 U/L (45-117); TOTAL BILIRUBIN ADULT 0.6 MG/DL (0.2-1.0)
[2017-05-16] MEDS: FREE WATER G-TUBE SCH ×2 (08:00)
[2017-05-16] MEDS: REMOVE OLD PATCH T-DERMAL SCH (09:00)
[2017-05-16] MEDS: LINEZOLID 600 MG PREMIX 300 ML IV SCH (09:08)
--- NOTE | 2017-05-16 09:09 | HHI.HCSW ---
Ep Technologist Visit Advance Directive Palliative care informed patient may be still . 's potential name Caty Webb (maiden name Anand). [employer] produced no results for potential . Google search and social media search conducted in an attempt to locate possible . Unable to identify probable match. Mr. Webb has a son and mother willing to participate in decision making. Per [place] Statutes, medical proxy decision making would fall to the majority of adult children. . Aicha Harris, [employer] E[employer]MENT OPERATOR May 16, 2017 09:09
[2017-05-16] MEDS: POTASSIUM CHLOR 40 MEQ PREMIX 100 ML IV PRN (09:10)
[2017-05-16] MEDS: RIFAXIMIN 550 MG TAB PO SCH ×2 (09:12→21:00)
[2017-05-16] MEDS: FOLIC ACID 1 MG TAB PO SCH (09:12)
[2017-05-16] MEDS: MULTIVITAMIN TAB PO SCH (09:12)
[2017-05-16] MEDS: DOCUSATE SODIUM 50 MG/SENNA 8.6 MG TAB PO SCH ×2 (09:12→21:00)
[2017-05-16] MEDS: THIAMINE HCL 100 MG TAB PO SCH (09:12)
[2017-05-16] MEDS: GABAPENTIN 300 MG CAP PO SCH ×3 (09:12→17:07)
[2017-05-16] MEDS: PANTOPRAZOLE SODIUM 40 MG VIAL IV PUSH SCH (09:13)
[2017-05-16] MEDS: LACTULOSE SYRUP 20 GM/30 ML CUP PO SCH (09:13)
[2017-05-16] MEDS: HEPARIN SODIUM - SQ 10,000 UNITS/ML VIAL SQ SCH ×2 (09:14→21:00)
[2017-05-16] MEDS: SODIUM CHLORIDE 0.9% FLUSH 10 ML FLUSH IV FLUSH SCH (09:17)
[2017-05-16] MEDS: SODIUM CHLORIDE 0.9% FLUSH 10 ML FLUSH IVF SCH (09:17)
[2017-05-16] MEDS: NICOTINE 14 MG/24 HR PATCH T-DERMAL SCH (09:17)
[2017-05-16] MEDS: BUDESONIDE-FORMOTEROL 160/4.5 MCG INHALER INH SCH (09:18)
[2017-05-16] MEDS: CHLORHEXIDINE 0.12% (ORAL KIT) 15 ML CUP MT SCH ×2 (09:19→20:00)
[2017-05-16] MEDS ORDERED: BUMETANIDE INJ 1 MG/4 ML VIAL ONE (10:31)
--- NOTE | 2017-05-16 11:22 | HHI.HCPN ---
Reason for visit a. To assist with evaluation and management of symptoms including: encephalopathy, dyspnea, malnutrition b. To assist medical decision maker(s) with: better understanding of current medical conditions; weighing benefits/burdens of medical treatment options; making medical treatment decisions. Subjective/Interval History Patient seen and examined in ICU. No family at bedside. Patient is awake and alert. Attempts to communicate, he is mouthing words. Seems to be saying "I can' t reach anything." When explained we are unable to take restraints off due to mech vent. He then says "this is bullshit." He appears agitated. Afebrile. Bradycardic rate mid to upper 40's. On mech vent, FiO2 35%, PEEP 5. Generalized edema noted. Hemoglobin stable at 7.9. . Family/friend interactions Attempted to call sonJoseph via phone if a female with unrelated name was on answering machine, did not leave a message. Confirmed this is the wrong number. Correct number [phone]. Medical update provided to mother, Dallas, sonJoseph and sisterZakia via phone. Sister Zakia becomes tearful in discussion of possible medical extubation, she tells me son is really hoping to see his father "before he dies." Son recently attempted suicide and really "needs to be able to see his father." She begs for us to keep patient on vent until they arrive. She tells me patient has previously and repeatedly told the family he does not want to be kept alive by machines and she feels his frustration is due to his wishes not to be on machines. Spoke with Joseph graham he confirms he is willing to serve as HCP decision maker. He and pts sister Zakia will be driving to [place] 05/17/17, plan for palliative care family meeting 05/18/17 after they arrive. Goals remain aggressive at this time until son arrives. Will likely change to NO CODE status once family arrives. Family requests patient be kept on mech vent until they arrive from out of state. Discussed with Dr. Raines and he agrees. Nurse notified. . Advance Directives Living Will: Never completed Health Care Surrogate: Never completed Durable Power of Marketing Ambassador: Never completed Advance Directive Specifics Health Care Surrogate(s): Patient currently incapacitated to make his health care decisions. No written advanced directives. Search for estranged has not produced any contact via [employer], [employer] or social media search, family does not have contact information. Therefore according to [place] statutes, health care proxy decision making falls to majority of adult children, he has 2 sons - one son disabled and dependent for care center not able to participate. Other son, Joseph Webb is willing to serve as health care proxy decision maker. . Significant change in goals: FULL CODE. Goals remain aggressive at this time. Family hopes patient can be kept on [facility] vent until they arrive on 05/18/17 in AM. . Objective Vital Signs Date Time Temp Pulse Resp B/P (MAP) Pulse Ox O2 Delivery O2 Flow Rate FiO2 05/16/17 08:37 100 35 05/16/17 06:00 48 05/16/17 04:11 100 35 05/16/17 04:00 97.7 46 1 124/88 (100) 100 05/16/17 04:00 35 05/16/17 04:00 46 05/16/17 02:00 35 05/16/17 02:00 46 05/16/17 00:02 100 35 05/16/17 00:00 97.9 50 0 100 05/16/17 00:00 50 05/16/17 00:00 35 05/15/17 22:00 35 05/15/17 22:00 57 05/15/17 20:25 100 35 05/15/17 20:00 97.7 60 13 125/90 (102) 100 05/15/17 20:00 35 05/15/17 20:00 60 05/15/17 19:28 35 05/15/17 18:30 57 05/15/17 18:15 59 05/15/17 18:00 58 05/15/17 17:45 58 05/15/17 17:30 60 05/15/17 17:15 63 05/15/17 17:00 82 05/15/17 16:45 83 05/15/17 16:30 84 05/15/17 16:30 84 21 118/85 (96) 100 05/15/17 16:15 85 05/15/17 16:15 85 21 114/81 (92) 100 05/15/17 16:06 100 35 05/15/17 16:00 35 05/15/17 16:00 87 30 100 05/15/17 16:00 87 05/15/17 15:45 83 19 123/87 (99) 100 05/15/17 15:45 83 05/15/17 15:31 79 05/15/17 15:31 79 23 116/78 (91) 100 05/15/17 15:15 66 05/15/17 15:15 66 16 102/75 (84) 99 05/15/17 15:08 66 16 103/76 (85) 100 05/15/17 15:08 66 05/15/17 15:01 71 05/15/17 15:01 71 18 74/55 (61) 97 05/15/17 14:45 72 16 109/79 (89) 99 05/15/17 14:45 72 05/15/17 14:30 81 05/15/17 14:30 81 16 112/83 (93) 99 05/15/17 14:15 92 05/15/17 14:15 92 30 127/96 (106) 100 05/15/17 14:00 92 32 122/92 (102) 99 05/15/17 14:00 92 05/15/17 13:45 92 15 119/89 (99) 97 05/15/17 13:34 97 35 05/15/17 13:30 93 15 119/86 (97) 96 05/15/17 13:15 89 15 110/74 (86) 97 05/15/17 13:00 91 8 112/78 (89) 96 05/15/17 12:45 101 23 128/87 (101) 95 05/15/17 12:30 105 21 136/92 (107) 95 05/15/17 12:15 111 31 129/86 (100) 93 05/15/17 12:00 110 05/15/17 12:00 50 05/15/17 12:00 110 22 134/81 (98) 94 05/15/17 11:45 108 05/15/17 11:30 101 05/15/17 11:15 98 05/15/17 11:00 106 05/15/17 10:51 110 05/15/17 10:46 122 05/15/17 10:45 121 05/15/17 10:30 127 05/15/17 10:30 100 50 05/15/17 10:15 109 Intake & Output 05/16/17 05/16/17 07:00 19:00 Intake Total 898 ml Output Total 500 ml Balance 398 ml IV Total 898 ml Output Urine Total 500 ml # Bowel Movements 2 Physical Exam CONSTITUTIONAL/GENERAL: This is an adequately nourished patient, awake mildly restless/ on mech vent. TUBES/LINES/DRAINS: ETT, Peripheral IV left upper extremity, right IJ central line, Young catheter, Bilateral soft restraints upper extremities. SKIN: No jaundice, rashes, or lesions. scattered Ecchymoses on upper extremities. No wounds seen anteriorly. Skin warm. CARDIOVASCULAR: Regular rate and rhythm without murmurs, bradycardic, rate 48. RESPIRATORY/CHEST: Symmetric, mildly labored respirations. +tachypneic. Coarse scattered rhonchi. Wheezes noted left. Breath sounds equal bilaterally. GASTROINTESTINAL: Abdomen soft, mildly distended, bowel sounds normoactive, tube feed infusing via NG tube. No palpable masses. n apparent tenderness. No apparent tenderness. GENITOURINARY: Without palpable bladder distension. Young catheter in place. MUSCULOSKELETAL: Extremities without clubbing, cyanosis. 2-3 + edema to upper and lower extremities. NEUROLOGICAL: Awake tracks examiners, mouthing words. Follows commands. PSYCHIATRIC: Easily agitated, restless. . Diagnostic Tests Laboratory Laboratory Tests Test 05/13/17 12:45 05/13/17 18:30 05/14/17 04:10 05/15/17 04:00 Bronchoalveolar Lavage WBC 580 /MM3 Bronchoalveolar Lavage RBC 3080 /MM3 Bronchoalveolar Lavage Neutrophils 91 % Bronchoalveolar Lavage Lymphocytes 2 % Bronchoalveolar Lavage Eosinophils 1 % Bronchoalveolar Lavage Histiocytes 6 % Bronchoalveolar Lavage Diff Comment Lavage Fluid Total Volume 18.0 ML Lavage Fluid Total WBC Count 10.440 MILLION (4.700-7.100) Stool C. difficile Toxin (PCR) NEGATIVE (NEGATIVE) Stl C. difficile Toxin Epiderm 027 PRESUMPTIVE NEGATIVE White Blood Count 7.8 TH/MM3 (4.0-11.0) 6.3 TH/MM3 (4.0-11.0) Red Blood Count 2.18 MIL/MM3 (4.50-5.90) 2.18 MIL/MM3 (4.50-5.90) Hemoglobin 7.7 GM/DL (13.0-17.0) 7.6 GM/DL (13.0-17.0) Hematocrit 23.0 % (39.0-51.0) 23.2 % (39.0-51.0) Mean Corpuscular Volume 105.6 FL (80.0-100.0) 106.4 FL (80.0-100.0) Mean Corpuscular Hemoglobin 35.1 PG (27.0-34.0) 35.0 PG (27.0-34.0) Mean Corpuscular Hemoglobin Concent 33.3 % (32.0-36.0) 33.0 % (32.0-36.0) Red Cell Distribution Width 23.9 % (11.6-17.2) 24.0 % (11.6-17.2) Platelet Count 157 TH/MM3 (150-450) 152 TH/MM3 (150-450) Mean Platelet Volume 11.3 FL (7.0-11.0) 11.3 FL (7.0-11.0) Neutrophils (%) (Auto) 72.4 % (16.0-70.0) 71.3 % (16.0-70.0) Lymphocytes (%) (Auto) 8.2 % (9.0-44.0) 9.5 % (9.0-44.0) Monocytes (%) (Auto) 16.1 % (0.0-8.0) 15.2 % (0.0-8.0) Eosinophils (%) (Auto) 2.9 % (0.0-4.0) 3.5 % (0.0-4.0) Basophils (%) (Auto) 0.4 % (0.0-2.0) 0.5 % (0.0-2.0) Neutrophils # (Auto) 5.7 TH/MM3 (1.8-7.7) 4.5 TH/MM3 (1.8-7.7) Lymphocytes # (Auto) 0.6 TH/MM3 (1.0-4.8) 0.6 TH/MM3 (1.0-4.8) Monocytes # (Auto) 1.3 TH/MM3 (0-0.9) 1.0 TH/MM3 (0-0.9) Eosinophils # (Auto) 0.2 TH/MM3 (0-0.4) 0.2 TH/MM3 (0-0.4) Basophils # (Auto) 0.0 TH/MM3 (0-0.2) 0.0 TH/MM3 (0-0.2) CBC Comment DIFF FINAL DIFF FINAL Differential Comment Blood Urea Nitrogen 13 MG/DL (7-18) 8 MG/DL (7-18) Creatinine 0.56 MG/DL (0.60-1.30) 0.37 MG/DL (0.60-1.30) Random Glucose 103 MG/DL (74-106) 105 MG/DL (74-106) Calcium Level 7.7 MG/DL (8.5-10.1) 8.0 MG/DL (8.5-10.1) Phosphorus Level 2.6 MG/DL (2.5-4.9) Magnesium Level 1.6 MG/DL (1.5-2.5) 1.4 MG/DL (1.5-2.5) Sodium Level 133 MEQ/L (136-145) 137 MEQ/L (136-145) Potassium Level 3.1 MEQ/L (3.5-5.1) 3.3 MEQ/L (3.5-5.1) Chloride Level 99 MEQ/L (98-107) 104 MEQ/L (98-107) Carbon Dioxide Level 25.9 MEQ/L (21.0-32.0) 24.6 MEQ/L (21.0-32.0) Anion Gap 8 MEQ/L (5-15) 8 MEQ/L (5-15) Estimat Glomerular Filtration Rate 149 ML/MIN (>89) 240 ML/MIN (>89) Total Protein 5.2 GM/DL (6.4-8.2) Albumin 2.7 GM/DL (3.4-5.0) Alkaline Phosphatase 82 U/L (45-117) Aspartate Amino Transf (AST/SGOT) 21 U/L (15-37) Alanine Aminotransferase (ALT/SGPT) 11 U/L (12-78) Total Bilirubin 0.7 MG/DL (0.2-1.0) Test 05/16/17 04:45 White Blood Count 6.2 TH/MM3 (4.0-11.0) Red Blood Count 2.28 MIL/MM3 (4.50-5.90) Hemoglobin 7.9 GM/DL (13.0-17.0) Hematocrit 24.2 % (39.0-51.0) Mean Corpuscular Volume 106.3 FL (80.0-100.0) Mean Corpuscular Hemoglobin 34.6 PG (27.0-34.0) Mean Corpuscular Hemoglobin Concent 32.5 % (32.0-36.0) Red Cell Distribution Width 24.2 % (11.6-17.2) Platelet Count 166 TH/MM3 (150-450) Mean Platelet Volume 10.7 FL (7.0-11.0) Neutrophils (%) (Auto) 74.5 % (16.0-70.0) Lymphocytes (%) (Auto) 11.7 % (9.0-44.0) Monocytes (%) (Auto) 13.0 % (0.0-8.0) Eosinophils (%) (Auto) 0.5 % (0.0-4.0) Basophils (%) (Auto) 0.3 % (0.0-2.0) Neutrophils # (Auto) 4.6 TH/MM3 (1.8-7.7) Lymphocytes # (Auto) 0.7 TH/MM3 (1.0-4.8) Monocytes # (Auto) 0.8 TH/MM3 (0-0.9) Eosinophils # (Auto) 0.0 TH/MM3 (0-0.4) Basophils # (Auto) 0.0 TH/MM3 (0-0.2) CBC Comment DIFF FINAL Differential Comment Blood Urea Nitrogen 8 MG/DL (7-18) Creatinine 0.36 MG/DL (0.60-1.30) Random Glucose 107 MG/DL (74-106) Total Protein 5.5 GM/DL (6.4-8.2) Albumin 3.1 GM/DL (3.4-5.0) Calcium Level 8.4 MG/DL (8.5-10.1) Alkaline Phosphatase 86 U/L (45-117) Aspartate Amino Transf (AST/SGOT) 18 U/L (15-37) Alanine Aminotransferase (ALT/SGPT) 11 U/L (12-78) Total Bilirubin 0.6 MG/DL (0.2-1.0) Sodium Level 139 MEQ/L (136-145) Potassium Level 3.4 MEQ/L (3.5-5.1) Chloride Level 107 MEQ/L (98-107) Carbon Dioxide Level 22.6 MEQ/L (21.0-32.0) Anion Gap 9 MEQ/L (5-15) Estimat Glomerular Filtration Rate 247 ML/MIN (>89) Result Diagram: 05/16/17 0445 05/16/17 0445 Microbiology Microbiology Date/Time Source Procedure Growth Status 05/13/17 12:45 Bronchial Washings Left Upper Lobe Fungal Smear Pending Received 05/13/17 12:45 Bronchial Washings Left Upper Lobe Fungal Culture Pending Received 05/13/17 12:45 Bronchial Washings Left Lower Lobe Acid Fast Stain - Final NO ACID FAST BACILLI SEEN Resulted 05/13/17 12:45 Bronchial Washings Left Lower Lobe Mycobacterial Culture Pending Resulted 05/13/17 12:45 Bronchial Washings Left Lower Lobe Gram Stain - Final Complete 05/13/17 12:45 Bronchial Washings Left Lower Lobe Bronchial Culture - Final NO GROWTH IN 48 HOURS. Complete Imaging Last Impressions Chest X-Ray 05/16/17 06 Signed Impressions: Service Date/Time: Tuesday, May 16, 2017 03:28 - CONCLUSION: No significant interval change Olu Rodriguez MD Abdomen X-Ray 05/14/17 06 Signed Impressions: Service Date/Time: Sunday, May 14, 2017 04:05 - CONCLUSION: Improved bowel gas pattern Olu Rodriguez MD Abdomen/Pelvis CT 05/12/17 0000 Signed Impressions: Service Date/Time: Friday, May 12, 2017 17:56 - CONCLUSION: 1. Left lower lobe collapse and lingular consolidation. Endobronchial soft tissue within the left lower lobe, Mass versus mucus plugging are differential diagnostic considerations. 2. Body wall edema and ascites. 3. Nonobstructing right renal calculus. 4. Colitis with abnormal bowel wall thickening involving the ascending colon, and diffuse small bowel dilatation characteristic of an ileus. Ray Finney MD Chest Ultrasound 05/08/17 0000 Signed Impressions: Service Date/Time: Monday, May 08, 2017 13:01 - CONCLUSION: 1. There is a small left pleural effusion with insufficient volume for thoracentesis at this time. Ronaldo Howell MD Abdomen Fluoroscopy 05/01/17 0000 Signed Impressions: Service Date/Time: Monday, May 01, 2017 13:13 - CONCLUSION: Uncomplicated nasogastric tube placement as above. Zain Kumar MD Lower Extremity Ultrasound 04/28/17 0000 Signed Impressions: Service Date/Time: Friday, April 28, 2017 16:47 - CONCLUSION: Negative exam with no evidence of deep venous thrombosis. Johnathon White MD Chest CT 04/28/17 0000 Signed Impressions: Service Date/Time: Friday, April 28, 2017 11:03 - CONCLUSION: 1. Small bilateral pleural effusions with atelectasis in both lower lobes. There is also a focal area of groundglass opacity in the lingula that is nonspecific but could represent an infectious or inflammatory process. 2. Moderate size hiatal hernia with dilated and fluid-filled esophagus suggesting gastroesophageal reflux. The nasogastric tube distal tip is in the distal esophagus and should ideally be advanced into the stomach. Olu Triana MD Head CT 04/27/17 1017 Signed Impressions: Service Date/Time: Thursday, April 27, 2017 11:00 - CONCLUSION: 1. No acute intracranial abnormality. 2. Complete opacification left maxillary sinus. Keagan Shipman MD Renal Ultrasound 04/27/17 0000 Signed Impressions: Service Date/Time: Thursday, April 27, 2017 23:50 - CONCLUSION: Negative renal sonogram. Rogerio Gunn MD Procedures 04/28 intubated 04/30 EGD 05/05 self extubated 05/06 decompressive colonoscopy 05/08 reintubated 05/12 decompressive colonoscopy . Assessment and Plan Disease Oriented Problem List: (1) Acute encephalopathy (2) Severe sepsis (3) COPD (chronic obstructive pulmonary disease) (4) Hyperammonemia (5) Hypoalbuminemia due to protein-calorie malnutrition (6) Hiatal hernia (7) Diverticulosis, sigmoid (8) Kidney stone on right side (9) Aspiration pneumonia (10) Hypokalemia (11) Hypomagnesemia (12) UTI (urinary tract infection) (13) Chronic alcoholism Symptom Scale: (1) Dyspnea 0-10 Scale: 0 (2) Malnutrition 0-10 Scale: Unable to quantify Comment: Albumin 3.1. (3) Encephalopathy 0-10 Scale: Unable to quantify Comment: more alert, mouthing words. (4) Anxiety 0-10 Scale: Unable to quantify Comment: easily agitated. Pertinent Non-Medical Issues Psychosocial:Patient estranged from second , but still legally to Caty Webb. 2 adult children, one disbaled, Other son Joseph Webb lives in [place], limited contact. Supported by mother, Dallas (lives local) and sister Zakia (an RN) lives in [place]. Family reports has struggled with alcoholism his whole life, not working. Been in [place] about 10 years. Spiritual: Muslim alyssa. Legal: Patient currently incapacitated to make his health care decisions. No written advanced directives. Search for estranged has not produced any contact via [employer], [employer] or [employer] search, family does not have contact information. Therefore according to [place] statutes, health care proxy decision making falls to majority of adult children, he has 2 sons - one son disabled and dependent for care center not able to participate. Other sonJoseph is willing to serve as health care proxy decision maker. Ethical issues impacting care: No known concerns at this time. . Important Contacts * Joseph Webb, son/HCP-: [phone] (In [place] - will driving from [place] to [place] leaving 05/17/17 in AM.) * Dallas Webb, mother: [phone] * Zakia Oscar, sister: [phone] (In [place] - will driving with son to [place] leaving 05/17/17 in AM.) . Prognosis This patient was admitted for altered mental status. He has had ongoing hepatic encephalopathy and debility secondary to alcohol abuse. This admission he has been intubated twice, is currently being treated for aspiration pneumonia. GI following, pathology from colonoscopy biopsies pending. Overall prognosis for meaningful recovery and independent function is poor given his history. Possible he can survive current acute hospitalization but would likely require tracheostomy and PEG tube to continue invasive/aggressive measures. . Code Status: Full Code Plan * Legal decision maker: Patient currently incapacitated to make his health care decisions. No written advanced directives. Search for estranged , Caty has not produced any contact via [employer], [employer] or [employer] search, family does not have contact information. Therefore according to [place] statutes, health care proxy decision making falls to majority of adult children , he has 2 sons - one son disabled and dependent for care center not able to participate. Other son, Joseph Webb is willing to serve as health care proxy decision maker. * FULL CODE * Goals remain aggressive at this time. SonJoseph and patient's sister, Zakia will be driving to [place] leaving [place] 05/17/17 in AM, anticipate meeting with family on Sunday05/18/17 in AM. Family hopes patient can remain on mech vent until they arrive. Family reiterates patient would not want to be prolonged by tubes/machines and would not want trach/PEG. Anticipate change of code status once they are able to see patient. Dr. Raines aware and agrees with plan. * SYMPTOMS: No new medication recommendations at this time. --Dyspnea-second intubation this hospital admission for acute respiratory failure.+ Aspiration pneumonia, encephalopathy and inability to protect his airway; will likely require tracheostomy and PEG tube for longer-term aggressive interventions if goals aggressive and unable to wean. Dr. Raines may attempt another medical extubation. --Encephalopathy-hepatic, ? Sepsis. Recent ammonia level 45 despite lactulose , Xifaxan. --Malnutrition-patient with long history alcohol abuse chronic malnutrition likely given this diagnoses; albumin 3.1. --Anxiety/agitation-multifactorial, history EtOH abuse, has required Precedex drip on mechanical vent. More alert today, may attempt medical extubation per Dr. Raines. * Palliative care will continue to follow during hospital course as condition evolves, to assist patient/decision-maker with understanding of medical conditions, weighing benefits/burdens of treatment options, for clarification of goals of treatment. Additionally will assist with any symptoms of palliative concern . Attestation To help prompt me to consider important information that might be impacting today's encounter and assessment, information from prior notes written by myself or my colleagues may have been "brought forward" into today's note. My signature on this note, however, is an attestation that I personally performed the exam, history, and/or decision-making noted today, and, unless otherwise indicated, the interactions with patient, family, and staff as well as the review of records all occurred today. I also attest that the listed assessment and stated plan reflect my best clinical judgment today based on the combination of historical information, prior notes, and today's exam/ interactions. When time spent is documented, it refers only to time spent today by the signer, or if indicated, combined time spent today by collaborating physician/nurse practitioner. Adalgisa Ellington May 16, 2017 11:17
--- NOTE | 2017-05-16 11:39 | HHI.CCPN ---
Subjective Remarks/Hospital Course 61yM with h/o prior hepatic encephalopathy, etoh abuse, tobacco abuse, now admitted with weakness, fever, chills, worsening hypotension. called by hospitalist service overnight for clinical decline despite ivf resuscitation. Patient does complain of flank pain, but denies chest pain, abdominal pain. u/a +. started earlier on vanc/zosyn. has not voided. becoming worseningly agitated. unable to provide any additional information due to altered mental status. 04/28: Chart reviewed. Patient still quite agitated stating "I have to pee" patient has a Young catheter. Complaining of flank pain. Noted renal ultrasound negative. Currently on norepinephrine at 12 mg per minute. 04/29: Resting in bed in no acute distress. Currently on norepinephrine at 7 per minute for vasopressor support. Transfuse 2 units PRBC and 2 pack platelets overnight. Dilutional. Absolutely no signs of active bleeding. 04/30 Patient is sedated with Fentanyl and intubated. On Levophed 5 mics. Afebrile. For EGD today. 05/01 No events overnight. Sedated and intubated. On Levophed 4 mics. s/p EGD yesterday with shoed esophagitis, gastritis, food impaction in distal esophagus removed. 05/02: Afebrile. Off all vasopressors. NG tube advanced by IR yesterday. Feeding to be initiated today. Currently on fentanyl drip 05/03: Remains intubated sedated and not following commands remains on fentanyl infusion. Attempt CPAP trial if patient wakeful enough. Urine output minimal only 300 mL in 24 hours. Will give albumin and Bumex 05/04 Patient is sedated with Fentanyl and intubated. Afebrile. 05/05 Patient was self extubated last night. For possible decompressive colonoscopy today. Afebrile. 05/06 Patient is on 3L oxygen for decompressive colonoscopy today. On Precedex drip for agitation. CT abdomen/pelvis last night showed development of gaseous distention of the right and transverse colon with abrupt change in luminal dimension at the splenic flexure. There is a rectal tube in place and cannot differentiate between a focal obstruction/stricture versus decompression from the rectal tube. 05/07 Patient s/p decompressive colonoscopy last night KUB this morning showed decreased colonic distention. On 4L oxygen. 05/08 Patient was unresponsive on BIPAP this morning and was in resp distress he was subsequently intubated and placed on mechanical ventilation. CXR post intubation showed complete opacification of left hemithorax likely 2nd mucous plug 05/09 Patient is sedated with Fentanyl and intubated. Afebrile. 05/10 Patient remains sedated and intubated. Afebrile. Tolerating tube feeds 05/11: Tolerated PSV trials 3 hours today. Not tolerating tube feeding currently. KUB pending. Positive BM. Decreased urine output noted. 05/12: Lasted 1 hour on PSV trials today. Currently vomiting will be decompressed from above and below per GI today. Afebrile. Central line placed due to persistent hypotension Subjective 05/13: Permission from mother for bronchoscopy today for diagnosis left lower lobe on CAT scan of min/pelvis yesterday. Sample sent. Currently on linezolid , cefepime and Flagyl per infectious disease. 05/14: Patient remains intubated sedated, on sedation hold do not follow commands , but moving extremities. Initially intubated 04/28, self extubated 05/05, Re intubated for mucus plugging, AMS on 05/07 night. Combined vent day 14, mental status will not permit extubation. Copious yellow ETT secretions. 05/15: Gets agitated on CPAP. But intermittently follows commands. Good oxygen saturation. Chest x-ray shows improved aeration. Moderate secretions from ET tube but good cough. Will proceed with extubation. Remains full code 05/16: Patient was extubated yesterday but failed in about 1 hour due to stridor and tachypnea. Today off sedation mentation seems to be improved, tolerates CPAP with high settings but has bilateral crackles and coarse rhonchi. Family (son and daughter) starting in from [place]. Will be here tomorrow 05/17/17 and request the patient to be left intubated until they get here Objective Vital Signs Date Time Temp Pulse Resp B/P (MAP) Pulse Ox O2 Delivery O2 Flow Rate FiO2 05/16/17 10:35 100 35 05/16/17 08:00 97.6 49 20 95/61 (72) 05/15/17 10:01 Nasal Cannula 4 Intake and Output 05/16/17 05/16/17 05/17/17 08:00 16:00 00:00 Intake Total 848 ml Output Total 500 ml Balance 348 ml Result Diagram: 05/16/17 0445 05/16/17 0445 Other Results Microbiology Date/Time Source Procedure Growth Status 05/13/17 12:45 Bronchial Washings Left Lower Lobe Gram Stain - Final Complete 05/13/17 12:45 Bronchial Washings Left Lower Lobe Bronchial Culture - Final NO GROWTH IN 48 HOURS. Complete Imaging Last Impressions Chest X-Ray 05/13/17 Signed Impressions: Service Date/Time: Saturday, May 13, 2017 13:22 - CONCLUSION: Stable chest appearance. Nasogastric tube in the distal esophagus Olu Rodriguez MD Abdomen/Pelvis CT 05/12/17 Signed Impressions: Service Date/Time: Friday, May 12, 2017 17:56 - CONCLUSION: 1. Left lower lobe collapse and lingular consolidation. Endobronchial soft tissue within the left lower lobe, Mass versus mucus plugging are differential diagnostic considerations. 2. Body wall edema and ascites. 3. Nonobstructing right renal calculus. 4. Colitis with abnormal bowel wall thickening involving the ascending colon, and diffuse small bowel dilatation characteristic of an ileus. Ray Finney MD Abdomen X-Ray 05/12/17 Signed Impressions: Service Date/Time: Friday, May 12, 2017 06:36 - CONCLUSION: 1. Reinsertion of the rectal tube which is coiled within the rectal vault. It may be kinked and not draining well. 2. Persistent gaseous distention of the colon although a slight decrease in the volume of gas. 3. New mildly dilated gas-filled loops of small bowel. Rogerio Harris Jr., MD Chest Ultrasound 05/08/17 Signed Impressions: Service Date/Time: Monday, May 08, 2017 13:01 - CONCLUSION: 1. There is a small left pleural effusion with insufficient volume for thoracentesis at this time. Ronaldo Howell MD Abdomen Fluoroscopy 05/01/17 0000 Signed Impressions: Service Date/Time: Monday, May 01, 2017 13:13 - CONCLUSION: Uncomplicated nasogastric tube placement as above. Zain Kumar MD Lower Extremity Ultrasound 04/28/17 0000 Signed Impressions: Service Date/Time: Friday, April 28, 2017 16:47 - CONCLUSION: Negative exam with no evidence of deep venous thrombosis. Johnathon White MD Chest CT 04/28/17 0000 Signed Impressions: Service Date/Time: Friday, April 28, 2017 11:03 - CONCLUSION: 1. Small bilateral pleural effusions with atelectasis in both lower lobes. There is also a focal area of groundglass opacity in the lingula that is nonspecific but could represent an infectious or inflammatory process. 2. Moderate size hiatal hernia with dilated and fluid-filled esophagus suggesting gastroesophageal reflux. The nasogastric tube distal tip is in the distal esophagus and should ideally be advanced into the stomach. Olu Triana MD Head CT 04/27/17 1017 Signed Impressions: Service Date/Time: Thursday, April 27, 2017 11:00 - CONCLUSION: 1. No acute intracranial abnormality. 2. Complete opacification left maxillary sinus. Keagan Shipman MD Renal Ultrasound 04/27/17 0000 Signed Impressions: Service Date/Time: Thursday, April 27, 2017 23:50 - CONCLUSION: Negative renal sonogram. Rogerio Gunn MD Objective Remarks GENERAL: 61 year old male critically ill currently orotracheally intubated SKIN: Warm and dry. No rash HEAD: Normocephalic. EYES: No scleral icterus. Pupils are round 3 mm bilaterally and reactive No injection or drainage. ENT: Critically intubated. moderate amount of ET tube secretions NECK: Supple, trachea midline. No JVD or lymphadenopathy. Right IJ is clean dry and intact CARDIOVASCULAR: RRR. S1, S2 no S4 without murmur RESPIRATORY: Breath sounds equal bilaterally. No accessory muscle use. Basilar crackles GASTROINTESTINAL: Distended. Tenderness to deep palpation. No guarding. No rigidity. Hypoactive bowel sounds appreciated throughout. MSK: No significant peripheral edema NEURO: Intubated sedated. Eyes are spontaneously open. Improved mentation, following commands. Moves all 4 extremities Urinary Catheter: Yes Assessment to: Continue Date of Insertion: Apr 28, 2017 Line: Central Venous Catheter Side: Right Location: Femoral A/P Assessment and Plan Neuro/Psych: Acute encephalopathy likely secondary to EtOH withdrawal/sepsis/hyperammonemia Alcohol dependence Fentanyl infusion discontinued due to likely ileus. Propofol for sedation Goal of RASS -1. Daily sedation vacation Thiamine, folate and multivitamin daily CT brain 04/27 revealed left maxillary sinusitis otherwise no acute intra- cranial findings Patient does have a history of EtOH withdrawal seizures. Seizure precautions CV: Severe sepsis Lactic acidosis- cleared Monitor HR and BP keep MAP>65mmHg Norepinephrine as needed to keep map above 65 DC all IVF Bumex 1 mg IV x1 05/16 Resp: Acute respiratory failure- intubated 04/28, self extubated 05/05 reintubated 05/08 COPD exacerbation Stridor Ongoing tobaccoism Failed extubation yesterday 05/15/17 due to stridor and tachypnea Decadron 4 mg 4 doses Due to possible mucous plugging left lower lobe on CAT scan 05/12. s/p bronchoscopy 05/13 with removal of mucous plug. Continue with vent support ACV 16//5/35 keep sat >92%. Albuterol/ipratropium aerosols every 6 hours and albuterol aerosols every 2 hours. PRN ICU vent bundle. SBT daily. Hold off any further extubation until and daughter gets here from [place]-expected 05/17/17 s/p bronch with BAL 05/08: Thick secretions/mucous plug left main stem bronchus suctioned to clear CXR post bronch showed improved aeration left lung. Nicotine patch 14 mg daily. GI: Hyperammonemia Colonic Ileus Elevated AST Hypoalbuminemia- mild protein calorie malnutrition Hiatal hernia Sigmoid diverticulosis Hepatic steatosis Jevity 1.5 at 50 cc an hour. On lactulose 30 cc every 6 hours and Xifaxan 550 mg by mouth twice a day for elevated ammonia. CT abdomen/pelvis 05/12 revealed thickening ascending colon/small bowel dilatation/ileus. KUB 05/14 Improving bowel distention KUB 05/09: Mild improvements in bowel gas pattern. KUB 05/07: Decreased colonic distention s/p decompressive colonoscopy 05/06: Stool throughout the colon, Decompression colon tube was placed 05/05 CT abdomen/pelvis: showed development of gaseous distention of the right and transverse colon with abrupt change in luminal dimension at the splenic flexure. There is a rectal tube in place and cannot differentiate between a focal obstruction/stricture versus decompression from the rectal tube. KUB abdomen 05/04 showed severe ileus, cecum dilated to 10 cm s/p EGD 04/30: Esophagitis, gastritis, food impaction in distal esophagus removed. Pantoprazole for GI prophylaxis. Docusate sodium/senna 1 tablet twice a day for bowel regimen. Continue Reglan : Right kidney nonobstructing stone 3 mm Renal ultrasound revealed no hydronephrosis Monitor renal function, I/O's, electrolytes replacement per protocol. IV Bumex 1 mg x1 today Endo: Sliding-scale insulin to maintain euglycemia with Accu-Cheks every 6 hours with low regimen with Novolin R TSH: 3.14 04/28 Heme: Leukocytosis Macrocytic anemia Patient was transfused 2 pack platelets and 2 PRBC 04/28. Follow CBC daily. Monitor trends. ID: Possible C. difficile colitis Aspiration pneumonia, GNR in sputum Per infectious disease on linezolid, cefepime and metronidazole s/p Zosyn 04/27- onitor for signs of infections ( Fever, WBC) Afebrile, Follow up on BAL results 05/09 and 05/13- NGTD. Sputum E Coli-pansensitive Pertinent cultures Blood cultures 2 -04/27 -no growth to date Urine culture - 04/27 -50 - 100,000 mixed gram-positive Sputum 04/28- normal resp andrea Urine pneumococcal and Legionella antigens negative MSK: PT evaluate and treat Access -RIJ CVL placed 05/12 Prophylaxis - GI - pantoprazole - DVT - SCD/ Heparin SQ , Critical care time 30 minutes Palliative care following to address goals of care. Daily SBT without extubation until family gets to the bedside. Son and that when driving from [place] and they should be by tomorrow 05/17/17. Son is the legal decision- maker Esteban Raines MD May 16, 2017 11:39
--- NOTE | 2017-05-16 13:21 | HHI.GIFU ---
Subjective Remarks Resting in bed. Awake on CPAP. Following commands. Denies abdominal pain. Rectal tube out. Tolerating TF. (Kathrin Carreno) Objective Vitals I&O Vital Signs Date Time Temp Pulse Resp B/P (MAP) Pulse Ox O2 Delivery O2 Flow Rate FiO2 05/16/17 10:35 100 35 05/16/17 10:25 100 35 05/16/17 10:00 61 05/16/17 08:37 100 35 05/16/17 08:00 97.6 49 20 95/61 (72) 99 05/16/17 08:00 35 05/16/17 08:00 49 05/16/17 06:00 48 05/16/17 04:11 100 35 05/16/17 04:00 97.7 46 1 124/88 (100) 100 05/16/17 04:00 35 05/16/17 04:00 46 05/16/17 02:00 35 05/16/17 02:00 46 05/16/17 00:02 100 35 05/16/17 00:00 97.9 50 0 100 05/16/17 00:00 50 05/16/17 00:00 35 05/15/17 22:00 35 05/15/17 22:00 57 05/15/17 20:25 100 35 05/15/17 20:00 97.7 60 13 125/90 (102) 100 05/15/17 20:00 35 05/15/17 20:00 60 05/15/17 19:28 35 05/15/17 18:30 57 05/15/17 18:15 59 05/15/17 18:00 58 05/15/17 17:45 58 05/15/17 17:30 60 05/15/17 17:15 63 05/15/17 17:00 82 05/15/17 16:45 83 05/15/17 16:30 84 05/15/17 16:30 84 21 118/85 (96) 100 05/15/17 16:15 85 05/15/17 16:15 85 21 114/81 (92) 100 05/15/17 16:06 100 35 05/15/17 16:00 35 05/15/17 16:00 87 30 100 05/15/17 16:00 87 05/15/17 15:45 83 19 123/87 (99) 100 05/15/17 15:45 83 05/15/17 15:31 79 05/15/17 15:31 79 23 116/78 (91) 100 05/15/17 15:15 66 05/15/17 15:15 66 16 102/75 (84) 99 05/15/17 15:08 66 16 103/76 (85) 100 05/15/17 15:08 66 05/15/17 15:01 71 05/15/17 15:01 71 18 74/55 (61) 97 05/15/17 14:45 72 16 109/79 (89) 99 05/15/17 14:45 72 05/15/17 14:30 81 05/15/17 14:30 81 16 112/83 (93) 99 05/15/17 14:15 92 05/15/17 14:15 92 30 127/96 (106) 100 05/15/17 14:00 92 32 122/92 (102) 99 05/15/17 14:00 92 05/15/17 13:45 92 15 119/89 (99) 97 05/15/17 13:34 97 35 05/15/17 13:30 93 15 119/86 (97) 96 05/15/17 13:15 89 15 110/74 (86) 97 I/O 05/15/17 05/15/17 05/15/17 05/16/17 05/16/17 05/16/17 07:00 15:00 23:00 07:00 15:00 23:00 Intake Total 2350 ml 1031 ml 848 ml 500 ml Output Total 1200 ml 3640.0 ml 500 ml Balance 1150 ml -2609.0 ml 348 ml 500 ml IV Total 1421 ml 670 ml 848 ml 500 ml Tube Feeding 449 ml 241 ml Other 480 ml 120 ml Output Urine Total 1200 ml 2600 ml 500 ml Stool Total 800 ml Tube Feeding Residual Discard 240.0 ml # Bowel Movements 2 Laboratory Laboratory Tests Test 05/16/17 04:45 White Blood Count 6.2 Red Blood Count 2.28 Hemoglobin 7.9 Hematocrit 24.2 Mean Corpuscular Volume 106.3 Mean Corpuscular Hemoglobin 34.6 Mean Corpuscular Hemoglobin Concent 32.5 Red Cell Distribution Width 24.2 Platelet Count 166 Mean Platelet Volume 10.7 Neutrophils (%) (Auto) 74.5 Lymphocytes (%) (Auto) 11.7 Monocytes (%) (Auto) 13.0 Eosinophils (%) (Auto) 0.5 Basophils (%) (Auto) 0.3 Neutrophils # (Auto) 4.6 Lymphocytes # (Auto) 0.7 Monocytes # (Auto) 0.8 Eosinophils # (Auto) 0.0 Basophils # (Auto) 0.0 CBC Comment DIFF FINAL Differential Comment Blood Urea Nitrogen 8 Creatinine 0.36 Random Glucose 107 Total Protein 5.5 Albumin 3.1 Calcium Level 8.4 Alkaline Phosphatase 86 Aspartate Amino Transf (AST/SGOT) 18 Alanine Aminotransferase (ALT/SGPT) 11 Total Bilirubin 0.6 Sodium Level 139 Potassium Level 3.4 Chloride Level 107 Carbon Dioxide Level 22.6 Anion Gap 9 Estimat Glomerular Filtration Rate 247 Date/Time Source Procedure Growth Status 04/27/17 14:15 Blood Peripheral Aerobic Blood Culture - Final NO GROWTH IN 5 DAYS Complete 04/27/17 14:15 Blood Peripheral Anaerobic Blood Culture - Final NO GROWTH IN 5 DAYS Complete 05/13/17 12:45 Bronchial Washings Left Upper Lobe Fungal Smear Pending Received 05/13/17 12:45 Bronchial Washings Left Upper Lobe Fungal Culture Pending Received 05/06/17 07:50 Urine Catheterized Urine Urine Culture - Final NO GROWTH IN 48 HOURS. Complete Imaging Last Impressions Chest X-Ray 05/16/17 0600 Signed Impressions: Service Date/Time: Tuesday, May 16, 2017 03:28 - CONCLUSION: No significant interval change Olu Rodriguez MD Abdomen X-Ray 05/14/17 0600 Signed Impressions: Service Date/Time: Sunday, May 14, 2017 04:05 - CONCLUSION: Improved bowel gas pattern Olu Rodriguez MD Abdomen/Pelvis CT 05/12/17 0000 Signed Impressions: Service Date/Time: Friday, May 12, 2017 17:56 - CONCLUSION: 1. Left lower lobe collapse and lingular consolidation. Endobronchial soft tissue within the left lower lobe, Mass versus mucus plugging are differential diagnostic considerations. 2. Body wall edema and ascites. 3. Nonobstructing right renal calculus. 4. Colitis with abnormal bowel wall thickening involving the ascending colon, and diffuse small bowel dilatation characteristic of an ileus. Ray Finney MD Chest Ultrasound 05/08/17 0000 Signed Impressions: Service Date/Time: Monday, May 08, 2017 13:01 - CONCLUSION: 1. There is a small left pleural effusion with insufficient volume for thoracentesis at this time. Ronaldo Howell MD Abdomen Fluoroscopy 05/01/17 0000 Signed Impressions: Service Date/Time: Monday, May 01, 2017 13:13 - CONCLUSION: Uncomplicated nasogastric tube placement as above. Zain Kumar MD Lower Extremity Ultrasound 04/28/17 0000 Signed Impressions: Service Date/Time: Friday, April 28, 2017 16:47 - CONCLUSION: Negative exam with no evidence of deep venous thrombosis. Johnathon White MD Chest CT 04/28/17 0000 Signed Impressions: Service Date/Time: Friday, April 28, 2017 11:03 - CONCLUSION: 1. Small bilateral pleural effusions with atelectasis in both lower lobes. There is also a focal area of groundglass opacity in the lingula that is nonspecific but could represent an infectious or inflammatory process. 2. Moderate size hiatal hernia with dilated and fluid-filled esophagus suggesting gastroesophageal reflux. The nasogastric tube distal tip is in the distal esophagus and should ideally be advanced into the stomach. Olu Triana MD Head CT 04/27/17 1017 Signed Impressions: Service Date/Time: Thursday, April 27, 2017 11:00 - CONCLUSION: 1. No acute intracranial abnormality. 2. Complete opacification left maxillary sinus. Keagan Shipman MD Renal Ultrasound 04/27/17 0000 Signed Impressions: Service Date/Time: Thursday, April 27, 2017 23:50 - CONCLUSION: Negative renal sonogram. Rogerio Gunn MD Physical Exam HEENT: Normocephalic CHEST: Resp even, mildly labored. Course breath sounds. OETT to vent (CPAP). CARDIAC: RRR ABDOMEN: Soft, nondistended, nontender, BS active EXTREMITIES: BUE edema CONTAINER FILLER: Awake, follows commands (Kathrin Carreno) Assessment and Plan Plan ASSESSMENT - Colonic ileus. CT Scan abdomen and pelvis with IV contrast (05/12/17)----> left lower lobe collapse and lingular consolidation. endobronchial sot tissue within left lower lobe, mass versus mucus plugging are differential diagnostic considerations. Body wall edema and ascites, nonobstructing renal calculus, colitis with abnormal bowel wall thickening involving the ascending colon, and diffuse small bowel dilatation suggesting ileus . S/P 2 SSE. S/P Relistor S/P Decompressive colonoscopy (05/06/17)----> stool throughout the colon, I did not see any masses, visualization was compromised with stool, decompression colon tube was placed. S/P Decompressive colonoscopy (05/12/17)---> Diverticulosis sigmoid poor prep, superficial ulcerations in ascending colon and cecum-biopsy with, pseudomembranes-consistent with cdiff. Pathology fragments of colonic mucosa and fragments of acute inflammatory exudate with ghost outlines of colonic mucosa, suggestive of ischemia. This could be seen in either pseudomembranous colitis or in ischemic colitis. Clinical correlation is suggested. Stools negative for cdiff pcr. Cont. Miralax, Lactulose. Flagyl stopped - Colitis/pseudomembranes. CDiff vs. ischemic colitis. Pathology as above. Stool was negative for CDiff pcr. S/P Flagyl. - Anemia, macrocytic. S/P EGD (04/30/17)---> Martinez esophagus, Esophagitis, Gastritis, Foreign body in the distal esophagus. Pathology reactive gastropathy. S/P 2 units RBC, 2 units Platelets. Vitamin B12 1298. PPI. HH 7.6/23.2. - Martinez's Esophagus, Esophagitis, Gastritis. Pathology reactive gastropathy. PPI - Foreign body in distal esophagus, s/p EGD. - Elevated ammonia, acute encephalopathy. Ammonia 45. Lactulose, Xifaxan. - Elevated bilirubin. CT as above. History of ETOH abuse, drinks 1/5 of vodka daily. Hypoalbuminemia with albumin 2.1. Mild coagulopathy. Suspect liver cirrhosis, likely secondary to alcohol, fatty liver disease. - Thrombocytopenia. S/P 2 platelet transfusion. - Sepsis, unclear source. Urine negative for legionella, streptococcus, bcx neg , sputum cx with light growth normal respiratory andrea. CT reveals possible pneumonia. - Respiratory failure, COPD. Extubated, but required reintubated. PLAN - Jevity 1.5, increase to GR at 60cc/hr - Cont. Lactulose - Cont. Xifaxan - Cont. PPI - Monitor labs - GI will sign off, please reconsult as needed - Patient seen and examined by Dr. Loving and myself and this note is written on his behalf. (Kathrin Carreno) Physician Comments Seen and examined with SIMI, over all improved. TF as tolerated, no gi bleeding. Will sign off, reconsult as needed. (Harrison Loving MD) Kathrin Carreno May 16, 2017 13:20 Harrison Loving MD May 16, 2017 16:15
--- NOTE | 2017-05-16 14:36 | HHI.IDPN ---
Subjective Subjective Remarks is a 61y CM with PMHx of ETOH abuse, prior hepatic encephalopathy, chronic alcoholism, ETOH withdrawal seizures who presented with weakness, dizziness, and having a fall and not being able to get up, per EMR. He subsequently developed worsening fever and hypotension and went to [facility] and was intubated. He self extubated himself and got reintubated. GI onboard for likely cirrhosis, hiatal hernia, and hyper-ammonia. CT showed heterogenous density liver likely steatosis, small volume free fluid abdomen and pelvis, moderate hiatal hernia. Pt is heavy drinker. Pt was discharged from ER on 04/23 after being seen for hepatic encephalopathy. Hospital course: 04/30 s/p EGD yesterday with shoed esophagitis, gastritis, food impaction in distal esophagus removed. 05/06: Decompressive colonoscopy today. CT abdomen/pelvis last night showed development of gaseous distention of the right and transverse colon with abrupt change in luminal dimension at the splenic flexure. There is a rectal tube in place and cannot differentiate between a focal obstruction/stricture versus decompression from the rectal tube. At the time of my evaluation patient is in the [facility]. Currently on Levophed 8 mics. He has low grade fever but WBC normal. On ventilator with thick yellow secretions. Patient underwent decompressive colonoscopy and was found to have pseudomembranous colitis. Cdiff PCR sent and pending. Patient on oral vanco and Flagyl IV. He just returned from a CT A/P which shows bilateral infiltrates left more than right. ID consulted for evaluation and Mment of Cdiff Colitis. Overnight events reviewed No fever No rash Stool liquid, dignishield to be placed. Secretions thick, yellow, freq suctioning. Remains on vent, more awake today, follows commands, tries to voice: wants to get restraints off getting agitated. UO ok. CPAP trial planned possible extubation. Antibiotics Cefepime IV Zyvox IV Flagyl IV I attest I obtained, reviewed or updated the home meds and current meds (for name, dose, freq and route). Current Medications Medications (Trade) Dose Ordered Sig/Brenda Route Start Time Stop Time Status Last Admin (Neurontin) 300 mg TID PO 04/27/17 13:00 Future hold 05/17/17 18:00 (Tylenol) 650 mg Q4H PRN PO 04/27/17 12:30 05/11/17 15:59 (Compazine Supp) 25 mg Q12H PRN RECTAL 04/27/17 12:30 (Narcan Inj) 0.4 mg UNSCH PRN IV PUSH 04/27/17 12:30 (Beena-Colace) 1 tab BID PO 04/27/17 21:00 Future hold 05/17/17 21:00 (Milk Of Magnesia Liq) 30 ml Q12H PRN PO 04/27/17 12:30 (Senokot) 17.2 mg Q12H PRN PO 04/27/17 12:30 (Dulcolax Supp) 10 mg DAILY PRN RECTAL 04/27/17 12:30 (Xifaxan) 550 mg BID PO 04/27/17 21:00 05/17/17 21:00 (Catapres) 0.1 mg Q6H PRN PO 04/27/17 12:30 (Habitrol 14 Mg Patch.24 Hr) 1 patch DAILY T-DERMAL 04/28/17 09:00 05/17/17 08:08 Miscellaneous Information 1 DAILY T-DERMAL 04/28/17 09:00 05/17/17 08:08 Miscellaneous Information Patient in critical care unit? Ass... [id number] .XX 04/27/17 17:30 Potassium Chloride 100 ml @ 50 mls/hr Q2H PRN IV 04/28/17 07:15 05/16/17 09:10 Potassium Chloride 100 ml @ 50 mls/hr Q2H PRN IV 04/28/17 07:15 05/09/17 11:15 (K-Lyte Cl Eff) 50 meq UNSCH PRN PO 04/28/17 07:15 Potassium Chloride 100 ml @ 25 mls/hr UNSCH PRN IV 04/28/17 07:15 Potassium Chloride 100 ml @ 50 mls/hr Q2H PRN IV 04/28/17 07:15 05/10/17 01:45 Magnesium Sulfate 4 gm/Sodium Chloride 100 ml @ 50 mls/hr UNSCH PRN IV 04/28/17 07:15 (Mag-Ox) 800 mg UNSCH PRN PO 04/28/17 07:15 Magnesium Sulfate 2 gm/Sodium Chloride 100 ml @ 50 mls/hr UNSCH PRN IV 04/28/17 07:15 05/15/17 17:54 (K-Phos) 2,000 mg Q4H PRN PO 04/28/17 07:15 Sodium Phosphate 30 mmol/Sodium Chloride 250 ml @ 42 mls/hr UNSCH PRN IV 04/28/17 07:15 05/10/17 10:31 (K-Phos) 2,000 mg UNSCH PRN PO/TUBE 04/28/17 07:15 Potassium Phosphate 30 mmol/ Sodium Chloride 260 ml @ 42 mls/hr UNSCH PRN IV 04/28/17 07:15 (Peridex 0.12% Liq) 15 ml BID@08,20 MT 04/28/17 20:00 05/17/17 20:00 (Tears Naturale Opth Soln) 1 drop Q8HR EACH EYE 04/28/17 14:00 05/18/17 06:00 (Protonix Inj) 40 mg DAILY IV PUSH 04/28/17 09:30 05/17/17 08:12 (NS Flush) DAILY IVF 04/29/17 15:45 05/17/17 08:12 (NS Flush) UNSCH PRN IVF 04/29/17 15:45 05/17/17 08:12 (Vitamin B1) 100 mg DAILY PO 04/30/17 09:15 05/17/17 08:12 (Theragran) 1 tab DAILY PO 04/30/17 09:15 05/17/17 08:12 (Folate) 1 mg DAILY PO 04/30/17 09:15 05/17/17 08:12 (Heparin Inj) 5,000 units Q12HR SQ 05/08/17 21:00 05/17/17 21:00 (Albuterol Neb) 2.5 mg Q2HR NEB PRN NEB 05/11/17 13:45 (Albumin 5% Inj) 25 gm Q12H IV 05/11/17 14:00 05/18/17 01:32 (Reglan Inj) 10 mg Q8HR IV PUSH 05/12/17 14:00 05/18/17 06:00 (NS Flush) DAILY IV FLUSH 05/13/17 09:00 05/17/17 08:13 (NS Flush) UNSCH PRN IV FLUSH 05/12/17 14:30 05/17/17 08:13 (Brethine Inj) 1 mg UNSCH PRN SQ 05/12/17 14:30 Cefepime HCl 2000 mg/Sodium Chloride 100 ml @ 200 mls/hr Q12H IV 05/13/17 12:00 05/18/17 00:00 (Lactulose Liq) 30 ml DAILY PO 05/14/17 09:00 05/17/17 08:12 (Symbicort 160-4.5 Inh) 2 puff Q12HR INH 05/15/17 10:30 05/16/17 09:18 (Duoneb Neb) 1 ampule Q6HR NEB NEB 05/16/17 11:30 05/18/17 09:11 Propofol 100 ml @ 2.85 mls/hr TITRATE PRN IV 05/16/17 11:30 05/17/17 08:10 Metronidazole 100 ml @ 100 mls/hr Q8H IV 05/16/17 15:00 05/18/17 06:25 (Bumex Inj) 2 mg DAILY IV PUSH 05/17/17 11:00 05/17/17 11:00 (K-Lyte Cl Eff) 25 meq DAILY PO 05/17/17 11:00 05/17/17 11:00 Lines Line sites with no e.o infection Past Medical History COPD and tobacco abuse Alcohol abuse History of alcohol withdrawal seizures Tonsillectomy Allergies: Coded Allergies: No Known Allergies (Verified Allergy, Unknown, 04/27/17) Uncoded Allergies: STEROIDS (Allergy, Unknown, 07/13/14) Objective . Vital Signs Date Time Temp Pulse Resp B/P (MAP) Pulse Ox O2 Delivery O2 Flow Rate FiO2 05/16/17 14:00 85 05/16/17 12:30 100 35 05/16/17 12:00 35 05/16/17 12:00 97.7 100 27 113/75 (88) 99 05/16/17 12:00 100 05/16/17 10:35 100 35 05/16/17 10:25 100 35 05/16/17 10:00 61 05/16/17 08:37 100 35 05/16/17 08:00 97.6 49 20 95/61 (72) 99 05/16/17 08:00 35 05/16/17 08:00 49 05/16/17 06:00 48 05/16/17 04:11 100 35 05/16/17 04:00 97.7 46 1 124/88 (100) 100 05/16/17 04:00 35 05/16/17 04:00 46 05/16/17 02:00 35 05/16/17 02:00 46 05/16/17 00:02 100 35 05/16/17 00:00 97.9 50 0 100 05/16/17 00:00 50 05/16/17 00:00 35 05/15/17 22:00 35 05/15/17 22:00 57 05/15/17 20:25 100 35 05/15/17 20:00 97.7 60 13 125/90 (102) 100 05/15/17 20:00 35 05/15/17 20:00 60 05/15/17 19:28 35 05/15/17 18:30 57 05/15/17 18:15 59 05/15/17 18:00 58 05/15/17 17:45 58 05/15/17 17:30 60 05/15/17 17:15 63 05/15/17 17:00 82 05/15/17 16:45 83 05/15/17 16:30 84 05/15/17 16:30 84 21 118/85 (96) 100 05/15/17 16:15 85 05/15/17 16:15 85 21 114/81 (92) 100 05/15/17 16:06 100 35 05/15/17 16:00 35 05/15/17 16:00 87 30 100 05/15/17 16:00 87 05/15/17 15:45 83 19 123/87 (99) 100 05/15/17 15:45 83 05/15/17 15:31 79 05/15/17 15:31 79 23 116/78 (91) 100 05/15/17 15:15 66 05/15/17 15:15 66 16 102/75 (84) 99 05/15/17 15:08 66 16 103/76 (85) 100 05/15/17 15:08 66 05/15/17 15:01 71 05/15/17 15:01 71 18 74/55 (61) 97 05/15/17 14:45 72 16 109/79 (89) 99 05/15/17 14:45 72 05/16/17 05/16/1705/17/17 15:00 23:00 07:00 Intake Total 500 ml Balance 500 ml IV Total 500 ml . Laboratory Tests Test 05/15/17 04:00 05/16/17 04:45 White Blood Count 6.3 TH/MM3 6.2 TH/MM3 Red Blood Count 2.18 MIL/MM3 2.28 MIL/MM3 Hemoglobin 7.6 GM/DL 7.9 GM/DL Hematocrit 23.2 % 24.2 % Mean Corpuscular Volume 106.4 FL 106.3 FL Mean Corpuscular Hemoglobin 35.0 PG 34.6 PG Mean Corpuscular Hemoglobin Concent 33.0 % 32.5 % Red Cell Distribution Width 24.0 % 24.2 % Platelet Count 152 TH/MM3 166 TH/MM3 Mean Platelet Volume 11.3 FL 10.7 FL Neutrophils (%) (Auto) 71.3 % 74.5 % Lymphocytes (%) (Auto) 9.5 % 11.7 % Monocytes (%) (Auto) 15.2 % 13.0 % Eosinophils (%) (Auto) 3.5 % 0.5 % Basophils (%) (Auto) 0.5 % 0.3 % Neutrophils # (Auto) 4.5 TH/MM3 4.6 TH/MM3 Lymphocytes # (Auto) 0.6 TH/MM3 0.7 TH/MM3 Monocytes # (Auto) 1.0 TH/MM3 0.8 TH/MM3 Eosinophils # (Auto) 0.2 TH/MM3 0.0 TH/MM3 Basophils # (Auto) 0.0 TH/MM3 0.0 TH/MM3 CBC Comment DIFF FINAL DIFF FINAL Differential Comment Laboratory Tests Test 05/15/17 04:00 05/16/17 04:45 Blood Urea Nitrogen 8 MG/DL 8 MG/DL Creatinine 0.37 MG/DL 0.36 MG/DL Random Glucose 105 MG/DL 107 MG/DL Total Protein 5.2 GM/DL 5.5 GM/DL Albumin 2.7 GM/DL 3.1 GM/DL Calcium Level 8.0 MG/DL 8.4 MG/DL Magnesium Level 1.4 MG/DL Alkaline Phosphatase 82 U/L 86 U/L Aspartate Amino Transf (AST/SGOT) 21 U/L 18 U/L Alanine Aminotransferase (ALT/SGPT) 11 U/L 11 U/L Total Bilirubin 0.7 MG/DL 0.6 MG/DL Sodium Level 137 MEQ/L 139 MEQ/L Potassium Level 3.3 MEQ/L 3.4 MEQ/L Chloride Level 104 MEQ/L 107 MEQ/L Carbon Dioxide Level 24.6 MEQ/L 22.6 MEQ/L Anion Gap 8 MEQ/L 9 MEQ/L Estimat Glomerular Filtration Rate 240 ML/MIN 247 ML/MIN Imaging Last Impressions Chest X-Ray 05/12/17 0600 Signed Impressions: Service Date/Time: Friday, May 12, 2017 03:49 - CONCLUSION: Upper lobe infiltrate with unchanged left lower lobe infiltrate. Rogerio Harris Jr., MD Abdomen/Pelvis CT 05/12/17 0000 Signed Impressions: Service Date/Time: Friday, May 12, 2017 17:56 - CONCLUSION: 1. Left lower lobe collapse and lingular consolidation. Endobronchial soft tissue within the left lower lobe, Mass versus mucus plugging are differential diagnostic considerations. 2. Body wall edema and ascites. 3. Nonobstructing right renal calculus. 4. Colitis with abnormal bowel wall thickening involving the ascending colon, and diffuse small bowel dilatation characteristic of an ileus. Ray Finney MD Abdomen X-Ray 05/12/17 0000 Signed Impressions: Service Date/Time: Friday, May 12, 2017 06:36 - CONCLUSION: 1. Reinsertion of the rectal tube which is coiled within the rectal vault. It may be kinked and not draining well. 2. Persistent gaseous distention of the colon although a slight decrease in the volume of gas. 3. New mildly dilated gas-filled loops of small bowel. Rogerio Harris Jr., MD Chest Ultrasound 05/08/17 0000 Signed Impressions: Service Date/Time: Monday, May 08, 2017 13:01 - CONCLUSION: 1. There is a small left pleural effusion with insufficient volume for thoracentesis at this time. Ronaldo Howell MD Abdomen Fluoroscopy 05/01/17 0000 Signed Impressions: Service Date/Time: Monday, May 01, 2017 13:13 - CONCLUSION: Uncomplicated nasogastric tube placement as above. Zain Kumar MD Lower Extremity Ultrasound 04/28/17 0000 Signed Impressions: Service Date/Time: Friday, April 28, 2017 16:47 - CONCLUSION: Negative exam with no evidence of deep venous thrombosis. Johnathon White MD Chest CT 04/28/17 0000 Signed Impressions: Service Date/Time: Friday, April 28, 2017 11:03 - CONCLUSION: 1. Small bilateral pleural effusions with atelectasis in both lower lobes. There is also a focal area of groundglass opacity in the lingula that is nonspecific but could represent an infectious or inflammatory process. 2. Moderate size hiatal hernia with dilated and fluid-filled esophagus suggesting gastroesophageal reflux. The nasogastric tube distal tip is in the distal esophagus and should ideally be advanced into the stomach. Olu Triana MD Head CT 04/27/17 1017 Signed Impressions: Service Date/Time: Thursday, April 27, 2017 11:00 - CONCLUSION: 1. No acute intracranial abnormality. 2. Complete opacification left maxillary sinus. Keagan Shipman MD Renal Ultrasound 04/27/17 0000 Signed Impressions: Service Date/Time: Thursday, April 27, 2017 23:50 - CONCLUSION: Negative renal sonogram. Rogerio Gunn MD Physical Exam GENERAL: Obese, well-developed patient. SKIN: No rashes. Ecchymoses. Cool and dry. HEAD: Atraumatic. Normocephalic. No temporal or scalp tenderness. EYES: Pupils equal round and reactive. Extraocular motions intact. ENT: Nose without bleeding, purulent drainage or septal hematoma. Throat without erythema, tonsillar hypertrophy or exudate. Uvula midline. Airway patent. NECK: Intubated. CARDIOVASCULAR: Regular rate and rhythm without murmurs. RESPIRATORY: Clear to auscultation. Breath sounds equal bilaterally. No wheezes , rales, or rhonchi. GASTROINTESTINAL: Abdomen soft, non-tender, slightly distended. MUSCULOSKELETAL: Extremities without clubbing, cyanosis. Anasarca, Pedal edema 3 +. NEUROLOGICAL: Opens eyes, follows commands, moves all extremities. Psych could not be assessed. IV line sites with no e.o infection. Assessment & Plan Remarks Aspiration Pneumonia (vomiting due to Gaseous distention this am) s/p colonic decompression 05/12/17 and other times in this admission. Ileus s.p decompression Pseudomembranous colitis (r/o cdiff) COPD exacerbation Alcoholism Cirrhosis of liver. Acute metabolic encephalopathy recs Continue Cefepime (Re:Aspiration in Health care setting) Continue Flagyl IV (anaerobes and Cdiff coverage). Cdiff can be negative with use of barrier cream used in pericare. Needs IV flagyl as pt had N/V and GI issues yday. DC Zyvox IV (Re:Aspiration in Health care setting) Follow bronch cultures. follow cultures Follow clinically. Aleja Hdez RN, MD May 16, 2017 14:36
[2017-05-16] MEDS: RESP: ALBUTEROL 2.5 MG/IPRATROPIUM 0.5 MG NEB (SCH) NEB ×2 (15:20→21:35)
--- NOTE | 2017-05-16 22:26 | RADRPT ---
EXAM DATE/TIME: 05/16/2017 22:05 [facility] COMPARISON: CHEST SINGLE AP, May 16, 2017, 3:28. INDICATIONS : Shortness of breath MEDICAL HISTORY : Chronic obstructive pulmonary disease SURGICAL HISTORY : None. ENCOUNTER: Subsequent ACUITY: 3 weeks PAIN SCORE: Non-responsive. LOCATION: Bilateral chest FINDINGS: The support devices remain in place. There is no pneumothorax. There continues to be some infiltrate in the left lung base. The right lung is grossly clear. There been no significant changes compared to the prior examination. CONCLUSION: No significant interval change. Curt Mullen MD on May 16, 2017 at 22:24 Board Certified Radiologist. This report was verified electronically.
[2017-05-17] VITALS (25 sets, daily range): BP systolic 111–148; BP diastolic 66–98; PULSE 84–112; RESP 22–41; TEMP 96.8–98.1; O2SAT 81–100
[2017-05-17] MEDS: ALBUMIN HUMAN 5% 25 GM/500 ML BOTTLE IV SCH ×2 (00:27→14:00)
[2017-05-17] MEDS: metroNIDAZOLE 500 MG INJ 100 ML IV SCH ×4 (00:28→23:00)
[2017-05-17] MEDS: CEFEPIME INJ 2,000 MG in SODIUM CHLORIDE 0.9% INJ 100 ML IV SCH ×2 (00:28→11:28)
[2017-05-17] MEDS: RESP: ALBUTEROL 2.5 MG/IPRATROPIUM 0.5 MG NEB (SCH) NEB ×4 (04:50→21:05)
[2017-05-17] MEDS: ARTIFICIAL TEARS OPTH SOLN 15 ML BTL EACH EYE SCH ×3 (05:07→22:00)
[2017-05-17] MEDS: METOCLOPRAMIDE HCL 10 MG/2 ML VIAL IV PUSH SCH ×3 (05:08→22:00)
[2017-05-17] MEDS: DOCUSATE SODIUM 50 MG/SENNA 8.6 MG TAB PO SCH ×2 (07:27→21:00)
[2017-05-17] MEDS: REMOVE OLD PATCH T-DERMAL SCH (08:08)
[2017-05-17] MEDS: NICOTINE 14 MG/24 HR PATCH T-DERMAL SCH (08:08)
[2017-05-17] MEDS: PROPOFOL 1000 MG/100 ML INJ 100 ML IV PRN (08:10)
[2017-05-17] MEDS: SODIUM CHLORIDE 0.9% FLUSH 10 ML FLUSH IVF SCH (08:12)
[2017-05-17] MEDS: RIFAXIMIN 550 MG TAB PO SCH ×2 (08:12→21:00)
[2017-05-17] MEDS: GABAPENTIN 300 MG CAP PO SCH ×3 (08:12→18:00)
[2017-05-17] MEDS: THIAMINE HCL 100 MG TAB PO SCH (08:12)
[2017-05-17] MEDS: FOLIC ACID 1 MG TAB PO SCH (08:12)
[2017-05-17] MEDS: LACTULOSE SYRUP 20 GM/30 ML CUP PO SCH (08:12)
[2017-05-17] MEDS: MULTIVITAMIN TAB PO SCH (08:12)
[2017-05-17] MEDS: PANTOPRAZOLE SODIUM 40 MG VIAL IV PUSH SCH (08:12)
[2017-05-17] MEDS: HEPARIN SODIUM - SQ 10,000 UNITS/ML VIAL SQ SCH ×2 (08:12→21:00)
[2017-05-17] MEDS: SODIUM CHLORIDE 0.9% FLUSH 10 ML FLUSH IV FLUSH SCH (08:13)
[2017-05-17] MEDS: SODIUM CHLORIDE 0.9% FLUSH 10 ML FLUSH IV FLUSH PRN (08:13)
[2017-05-17] MEDS: BUDESONIDE-FORMOTEROL 160/4.5 MCG INHALER INH SCH ×2 (08:13→21:00)
[2017-05-17] MEDS: CHLORHEXIDINE 0.12% (ORAL KIT) 15 ML CUP MT SCH ×2 (08:14→20:00)
[2017-05-17] MEDS: BUMETANIDE INJ 1 MG/4 ML VIAL IV PUSH SCH (11:00)
[2017-05-17] MEDS: POTASSIUM CHLORIDE 25 MEQ EFFERVESCENT TAB PO SCH (11:00)
--- NOTE | 2017-05-17 11:08 | HHI.CCPN ---
Subjective Remarks/Hospital Course 61yM with h/o prior hepatic encephalopathy, etoh abuse, tobacco abuse, now admitted with weakness, fever, chills, worsening hypotension. called by hospitalist service overnight for clinical decline despite ivf resuscitation. Patient does complain of flank pain, but denies chest pain, abdominal pain. u/a +. started earlier on vanc/zosyn. has not voided. becoming worseningly agitated. unable to provide any additional information due to altered mental status. 04/28: Chart reviewed. Patient still quite agitated stating "I have to pee" patient has a Young catheter. Complaining of flank pain. Noted renal ultrasound negative. Currently on norepinephrine at 12 mg per minute. 04/29: Resting in bed in no acute distress. Currently on norepinephrine at 7 per minute for vasopressor support. Transfuse 2 units PRBC and 2 pack platelets overnight. Dilutional. Absolutely no signs of active bleeding. 04/30 Patient is sedated with Fentanyl and intubated. On Levophed 5 mics. Afebrile. For EGD today. 05/01 No events overnight. Sedated and intubated. On Levophed 4 mics. s/p EGD yesterday with shoed esophagitis, gastritis, food impaction in distal esophagus removed. 05/02: Afebrile. Off all vasopressors. NG tube advanced by IR yesterday. Feeding to be initiated today. Currently on fentanyl drip 05/03: Remains intubated sedated and not following commands remains on fentanyl infusion. Attempt CPAP trial if patient wakeful enough. Urine output minimal only 300 mL in 24 hours. Will give albumin and Bumex 05/04 Patient is sedated with Fentanyl and intubated. Afebrile. 05/05 Patient was self extubated last night. For possible decompressive colonoscopy today. Afebrile. 05/06 Patient is on 3L oxygen for decompressive colonoscopy today. On Precedex drip for agitation. CT abdomen/pelvis last night showed development of gaseous distention of the right and transverse colon with abrupt change in luminal dimension at the splenic flexure. There is a rectal tube in place and cannot differentiate between a focal obstruction/stricture versus decompression from the rectal tube. 05/07 Patient s/p decompressive colonoscopy last night KUB this morning showed decreased colonic distention. On 4L oxygen. 05/08 Patient was unresponsive on BIPAP this morning and was in resp distress he was subsequently intubated and placed on mechanical ventilation. CXR post intubation showed complete opacification of left hemithorax likely 2nd mucous plug 05/09 Patient is sedated with Fentanyl and intubated. Afebrile. 05/10 Patient remains sedated and intubated. Afebrile. Tolerating tube feeds 05/11: Tolerated PSV trials 3 hours today. Not tolerating tube feeding currently. KUB pending. Positive BM. Decreased urine output noted. 05/12: Lasted 1 hour on PSV trials today. Currently vomiting will be decompressed from above and below per GI today. Afebrile. Central line placed due to persistent hypotension Subjective 05/13: Permission from mother for bronchoscopy today for diagnosis left lower lobe on CAT scan of min/pelvis yesterday. Sample sent. Currently on linezolid , cefepime and Flagyl per infectious disease. 05/14: Patient remains intubated sedated, on sedation hold do not follow commands , but moving extremities. Initially intubated 04/28, self extubated 05/05, Re intubated for mucus plugging, AMS on 05/07 night. Combined vent day 14, mental status will not permit extubation. Copious yellow ETT secretions. 05/15: Gets agitated on CPAP. But intermittently follows commands. Good oxygen saturation. Chest x-ray shows improved aeration. Moderate secretions from ET tube but good cough. Will proceed with extubation. Remains full code 05/16: Patient was extubated yesterday but failed in about 1 hour due to stridor and tachypnea. Today off sedation mentation seems to be improved, tolerates CPAP with high settings but has bilateral crackles and coarse rhonchi. Family (son and daughter) starting in from [place]. Will be here tomorrow 05/17/17 and request the patient to be left intubated until they get here 05/17: Patient is more awake alert and appropriate in communicating even though on low-dose propofol and intubated. Waiting for family to arrive from [place] tonight. Possible weaning to extubation tomorrow Objective Vital Signs Date Time Temp Pulse Resp B/P (MAP) Pulse Ox O2 Delivery O2 Flow Rate FiO2 05/17/17 10:00 98 41 111/71 (84) 100 05/17/17 08:00 98.0 05/17/17 08:00 35 05/16/17 21:34 Ventilator 05/15/17 10:01 4 Intake and Output 05/17/17 05/17/17 05/17/17 07:59 15:59 23:59 Output Total 1000 ml Balance -1000 ml Result Diagram: 05/16/17 0445 05/16/17 0445 Imaging Last Impressions Chest X-Ray 05/13/17 0000 Signed Impressions: Service Date/Time: Saturday, May 13, 2017 13:22 - CONCLUSION: Stable chest appearance. Nasogastric tube in the distal esophagus Olu Rodriguez MD Abdomen/Pelvis CT 05/12/17 0000 Signed Impressions: Service Date/Time: Friday, May 12, 2017 17:56 - CONCLUSION: 1. Left lower lobe collapse and lingular consolidation. Endobronchial soft tissue within the left lower lobe, Mass versus mucus plugging are differential diagnostic considerations. 2. Body wall edema and ascites. 3. Nonobstructing right renal calculus. 4. Colitis with abnormal bowel wall thickening involving the ascending colon, and diffuse small bowel dilatation characteristic of an ileus. Ray Finney MD Abdomen X-Ray 05/12/17 0000 Signed Impressions: Service Date/Time: Friday, May 12, 2017 06:36 - CONCLUSION: 1. Reinsertion of the rectal tube which is coiled within the rectal vault. It may be kinked and not draining well. 2. Persistent gaseous distention of the colon although a slight decrease in the volume of gas. 3. New mildly dilated gas-filled loops of small bowel. Rogerio Harris Jr., MD Chest Ultrasound 05/08/17 0000 Signed Impressions: Service Date/Time: Monday, May 08, 2017 13:01 - CONCLUSION: 1. There is a small left pleural effusion with insufficient volume for thoracentesis at this time. Ronaldo Howell MD Abdomen Fluoroscopy 05/01/17 0000 Signed Impressions: Service Date/Time: Monday, May 01, 2017 13:13 - CONCLUSION: Uncomplicated nasogastric tube placement as above. Zain Kumar MD Lower Extremity Ultrasound 04/28/17 0000 Signed Impressions: Service Date/Time: Friday, April 28, 2017 16:47 - CONCLUSION: Negative exam with no evidence of deep venous thrombosis. Johnathon White MD Chest CT 04/28/17 0000 Signed Impressions: Service Date/Time: Friday, April 28, 2017 11:03 - CONCLUSION: 1. Small bilateral pleural effusions with atelectasis in both lower lobes. There is also a focal area of groundglass opacity in the lingula that is nonspecific but could represent an infectious or inflammatory process. 2. Moderate size hiatal hernia with dilated and fluid-filled esophagus suggesting gastroesophageal reflux. The nasogastric tube distal tip is in the distal esophagus and should ideally be advanced into the stomach. Olu Triana MD Head CT 04/27/17 1017 Signed Impressions: Service Date/Time: Thursday, April 27, 2017 11:00 - CONCLUSION: 1. No acute intracranial abnormality. 2. Complete opacification left maxillary sinus. Keagan Shipman MD Renal Ultrasound 04/27/17 0000 Signed Impressions: Service Date/Time: Thursday, April 27, 2017 23:50 - CONCLUSION: Negative renal sonogram. Rogerio Gunn MD Objective Remarks GENERAL: 61 year old male critically ill currently orotracheally intubated SKIN: Warm and dry. No rash HEAD: Normocephalic. EYES: No scleral icterus. Pupils are round 3 mm bilaterally and reactive ENT: Orotracheally intubated. moderate amount of ET tube secretions NECK: Supple, trachea midline. No JVD or lymphadenopathy. Right IJ is clean dry and intact CARDIOVASCULAR: RRR. S1, S2 no S4 without murmur RESPIRATORY: Breath sounds equal bilaterally. No accessory muscle use. Basilar crackles GASTROINTESTINAL: Distended. Tenderness to deep palpation. No guarding. No rigidity. Hypoactive bowel sounds appreciated throughout. MSK: No significant peripheral edema NEURO: Intubated sedated. Eyes are spontaneously open. Improved mentation, following commands. Moves all 4 extremities Date of Insertion: Apr 28, 2017 Line: Central Venous Catheter Side: Right Location: Femoral A/P Assessment and Plan Neuro/Psych: Acute encephalopathy likely secondary to EtOH withdrawal/sepsis/hyperammonemia Alcohol dependence Propofol for sedation. Fentanyl infusion discontinued due to likely ileus. Goal of RASS -1. Daily sedation vacation Thiamine, folate and multivitamin daily CT brain 04/27 revealed left maxillary sinusitis otherwise no acute intra- cranial findings Patient does have a history of EtOH withdrawal seizures. Seizure precautions CV: Severe sepsis Lactic acidosis- cleared Monitor HR and BP keep MAP>65mmHg Norepinephrine as needed to keep map above 65 DC all IVF. Bumex 1 mg IV x1 05/16 Start scheduled Bumex to optimize fluid status, achieve negative fluid balance Resp: Acute respiratory failure- intubated 04/28, self extubated 05/05 reintubated 05/08 COPD exacerbation Stridor Ongoing tobaccoism Failed extubation yesterday 05/15/17 due to stridor and tachypnea. Possible extubation 05/18/17 after family arrives at bedside Decadron 4 mg 4 doses completed Due to possible mucous plugging left lower lobe on CAT scan 05/12. s/p bronchoscopy 05/13 with removal of mucous plug. Continue with vent support ACV // keep sat >92%. Albuterol/ipratropium aerosols every 6 hours and albuterol aerosols every 2 hours. PRN ICU vent bundle. SBT daily. Hold off any further extubation until son and daughter gets here from [place]-expected 05/17/17 night s/p Bronch with BAL 05/08: Thick secretions/mucous plug left main stem bronchus suctioned to clear CXR post bronch showed improved aeration left lung. Nicotine patch 14 mg daily. GI: Hyperammonemia Colonic Ileus Elevated AST Hypoalbuminemia- mild protein calorie malnutrition Hiatal hernia Sigmoid diverticulosis Hepatic steatosis Jevity 1.5 at 50 cc an hour. On lactulose 30 cc every 6 hours and Xifaxan 550 mg by mouth twice a day for elevated ammonia. CT abdomen/pelvis 05/12 revealed thickening ascending colon/small bowel dilatation/ileus. KUB 05/14 Improving bowel distention KUB 05/09: Mild improvements in bowel gas pattern. KUB 05/07: Decreased colonic distention s/p decompressive colonoscopy 05/06: Stool throughout the colon, Decompression colon tube was placed 05/05 CT abdomen/pelvis: showed development of gaseous distention of the right and transverse colon with abrupt change in luminal dimension at the splenic flexure. There is a rectal tube in place and cannot differentiate between a focal obstruction/stricture versus decompression from the rectal tube. KUB abdomen 05/04 showed severe ileus, cecum dilated to 10 cm s/p EGD 04/30: Esophagitis, gastritis, food impaction in distal esophagus removed. Pantoprazole for GI prophylaxis. Docusate sodium/senna 1 tablet twice a day for bowel regimen. Continue Reglan : Right kidney nonobstructing stone 3 mm Renal ultrasound revealed no hydronephrosis Monitor renal function, I/O's, electrolytes replacement per protocol. IV Bumex 1 mg x1 05/16 and daily Endo: Sliding-scale insulin to maintain euglycemia with Accu-Cheks every 6 hours with low regimen with Novolin R TSH: 3.14 04/28 Heme: Leukocytosis Macrocytic anemia Patient was transfused 2 pack platelets and 2 PRBC 04/28. Follow CBC daily. Monitor trends. ID: Possible C. difficile colitis Aspiration pneumonia, E Coli in sputum Per infectious disease on cefepime and metronidazole. Linezolid DCd 05/16/17 s/p Zosyn 04/27- onitor for signs of infections ( Fever, WBC) Afebrile, Follow up on BAL results 05/09 and 05/13- NGTD. Sputum E Coli-S to cefepime Pertinent cultures Blood cultures 2 -04/27 -no growth to date Urine culture - 04/27 -50 - 100,000 mixed gram-positive Sputum 04/28- normal resp andrea Urine pneumococcal and Legionella antigens negative MSK: PT evaluate and treat Access -RIJ CVL placed 05/12 Prophylaxis - GI - pantoprazole - DVT - SCD/ Heparin SQ , Critical care time 30 minutes Palliative care following to address goals of care. Daily SBT without extubation until family gets to the bedside. Son and that when driving from [place] and they should be by tonte 05/17/17. Son is the legal decision-maker Esteban Raines MD May 17, 2017 11:08
--- NOTE | 2017-05-17 15:41 | HHI.HCPN ---
Reason for visit a. To assist with evaluation and management of symptoms including: dyspnea, agitation. b. To assist medical decision maker(s) with: better understanding of current medical conditions; weighing benefits/burdens of medical treatment options; making medical treatment decisions. . Subjective/Interval History Patient seen and examined in ICU. No family at bedside. Discussed with Dr. Raines. Patient is awake and alert. Attempts to communicate, he is mouthing words. He appears agitated. Afebrile. Intermittent tachycardia. On mech vent, FiO2 35%. Generalized edema noted. 05/13/17 sputum culture E. Coli. Bronchial washings no AFB, fungal culture pending. No new labs or imaging. . Family/friend interactions Anticipate arrival of family on 05/17/17 PM, palliative care will meet with family on Sunday05/18/17 morning when they arrive. Palliative care number previously provided. . Advance Directives Living Will: Never completed Health Care Surrogate: Never completed Durable Power of State Director: Never completed Advance Directive Specifics Health Care Surrogate(s): Patient currently incapacitated to make his health care decisions. No written advanced directives. Search for estranged has not produced any contact via [employer], [employer] or [employer] search, family does not have contact information. Therefore according to [place] statutes, health care proxy decision making falls to majority of adult children, he has 2 sons - one son disabled and dependent for care center not able to participate. Other son, Joseph Webb is willing to serve as health care proxy decision maker. . Significant change in goals: FULL CODE. Goals remain aggressive at this time. Palliative care family meeting planned 05/18/17 when family (son and sister) arrive from out of state. . Objective Vital Signs Date Time Temp Pulse Resp B/P (MAP) Pulse Ox O2 Delivery O2 Flow Rate FiO2 05/17/17 13:00 94 26 117/70 (86) 100 05/17/17 12:55 100 35 05/17/17 12:00 102 05/17/17 12:00 97.9 102 41 116/71 (86) 100 05/17/17 12:00 35 05/17/17 11:00 103 38 124/70 (88) 100 05/17/17 11:00 103 05/17/17 10:00 98 41 111/71 (84) 100 05/17/17 10:00 98 05/17/17 09:00 104 05/17/17 09:00 104 24 114/71 (85) 100 05/17/17 08:00 98.0 111 28 81 05/17/17 08:00 111 05/17/17 08:00 35 05/17/17 07:22 100 35 05/17/17 07:00 112 37 99 05/17/17 07:00 112 05/17/17 06:00 100 05/17/17 04:52 98 35 05/17/17 04:00 96.8 94 22 116/66 (83) 98 05/17/17 04:00 94 05/17/17 04:00 35 05/17/17 02:00 96 05/17/17 01:29 96 35 05/17/17 00:00 35 05/17/17 00:00 100 05/17/17 00:00 97.8 100 26 113/68 (83) 97 05/16/17 22:00 102 05/16/17 21:34 96 Ventilator 05/16/17 21:29 98 35 05/16/17 20:00 109 05/16/17 20:00 98.2 109 45 137/80 (99) 96 05/16/17 20:00 35 05/16/17 19:28 96 35 05/16/17 18:00 111 05/16/17 16:00 114 05/16/17 16:00 97.6 114 33 128/84 (99) 95 05/16/17 16:00 35 Intake & Output 05/17/17 05/17/17 07:00 19:00 Output Total 1000 ml Balance -1000 ml Output Urine Total 1000 ml # Bowel Movements 3 Physical Exam CONSTITUTIONAL/GENERAL: This is an adequately nourished patient, awake mildly restless/ on mech vent. TUBES/LINES/DRAINS: ETT, Peripheral IV left upper extremity, right IJ central line, Young catheter, Bilateral soft restraints upper extremities. SKIN: No jaundice, rashes, or lesions. scattered Ecchymoses on upper extremities. No wounds seen anteriorly. Skin warm. CARDIOVASCULAR: RRR. RESPIRATORY/CHEST: Symmetric, mildly labored respirations. +tachypneic. Coarse scattered rhonchi. Wheezes noted left. Breath sounds equal bilaterally. GASTROINTESTINAL: Abdomen soft, mildly distended, bowel sounds +. GENITOURINARY: Without palpable bladder distension. Young catheter in place. MUSCULOSKELETAL: Extremities without clubbing, cyanosis. 2-3 + edema to upper and lower extremities. NEUROLOGICAL: Awake tracks examiners, mouthing words. Follows commands. PSYCHIATRIC: Easily agitated, restless. . Diagnostic Tests Laboratory Laboratory Tests Test 05/15/17 04:00 05/16/17 04:45 White Blood Count 6.3 TH/MM3 (4.0-11.0) 6.2 TH/MM3 (4.0-11.0) Red Blood Count 2.18 MIL/MM3 (4.50-5.90) 2.28 MIL/MM3 (4.50-5.90) Hemoglobin 7.6 GM/DL (13.0-17.0) 7.9 GM/DL (13.0-17.0) Hematocrit 23.2 % (39.0-51.0) 24.2 % (39.0-51.0) Mean Corpuscular Volume 106.4 FL (80.0-100.0) 106.3 FL (80.0-100.0) Mean Corpuscular Hemoglobin 35.0 PG (27.0-34.0) 34.6 PG (27.0-34.0) Mean Corpuscular Hemoglobin Concent 33.0 % (32.0-36.0) 32.5 % (32.0-36.0) Red Cell Distribution Width 24.0 % (11.6-17.2) 24.2 % (11.6-17.2) Platelet Count 152 TH/MM3 (150-450) 166 TH/MM3 (150-450) Mean Platelet Volume 11.3 FL (7.0-11.0) 10.7 FL (7.0-11.0) Neutrophils (%) (Auto) 71.3 % (16.0-70.0) 74.5 % (16.0-70.0) Lymphocytes (%) (Auto) 9.5 % (9.0-44.0) 11.7 % (9.0-44.0) Monocytes (%) (Auto) 15.2 % (0.0-8.0) 13.0 % (0.0-8.0) Eosinophils (%) (Auto) 3.5 % (0.0-4.0) 0.5 % (0.0-4.0) Basophils (%) (Auto) 0.5 % (0.0-2.0) 0.3 % (0.0-2.0) Neutrophils # (Auto) 4.5 TH/MM3 (1.8-7.7) 4.6 TH/MM3 (1.8-7.7) Lymphocytes # (Auto) 0.6 TH/MM3 (1.0-4.8) 0.7 TH/MM3 (1.0-4.8) Monocytes # (Auto) 1.0 TH/MM3 (0-0.9) 0.8 TH/MM3 (0-0.9) Eosinophils # (Auto) 0.2 TH/MM3 (0-0.4) 0.0 TH/MM3 (0-0.4) Basophils # (Auto) 0.0 TH/MM3 (0-0.2) 0.0 TH/MM3 (0-0.2) CBC Comment DIFF FINAL DIFF FINAL Differential Comment Blood Urea Nitrogen 8 MG/DL (7-18) 8 MG/DL (7-18) Creatinine 0.37 MG/DL (0.60-1.30) 0.36 MG/DL (0.60-1.30) Random Glucose 105 MG/DL (74-106) 107 MG/DL (74-106) Total Protein 5.2 GM/DL (6.4-8.2) 5.5 GM/DL (6.4-8.2) Albumin 2.7 GM/DL (3.4-5.0) 3.1 GM/DL (3.4-5.0) Calcium Level 8.0 MG/DL (8.5-10.1) 8.4 MG/DL (8.5-10.1) Magnesium Level 1.4 MG/DL (1.5-2.5) Alkaline Phosphatase 82 U/L (45-117) 86 U/L (45-117) Aspartate Amino Transf (AST/SGOT) 21 U/L (15-37) 18 U/L (15-37) Alanine Aminotransferase (ALT/SGPT) 11 U/L (12-78) 11 U/L (12-78) Total Bilirubin 0.7 MG/DL (0.2-1.0) 0.6 MG/DL (0.2-1.0) Sodium Level 137 MEQ/L (136-145) 139 MEQ/L (136-145) Potassium Level 3.3 MEQ/L (3.5-5.1) 3.4 MEQ/L (3.5-5.1) Chloride Level 104 MEQ/L (98-107) 107 MEQ/L (98-107) Carbon Dioxide Level 24.6 MEQ/L (21.0-32.0) 22.6 MEQ/L (21.0-32.0) Anion Gap 8 MEQ/L (5-15) 9 MEQ/L (5-15) Estimat Glomerular Filtration Rate 240 ML/MIN (>89) 247 ML/MIN (>89) Result Diagram: 05/16/1744405/16/17444 Microbiology Microbiology Date/Time Source Procedure Growth Status 04/27/17 14:15 Blood Peripheral Aerobic Blood Culture - Final NO GROWTH IN 5 DAYS Complete 04/27/17 14:15 Blood Peripheral Anaerobic Blood Culture - Final NO GROWTH IN 5 DAYS Complete 05/13/17 12:45 Bronchial Washings Left Upper Lobe Fungal Smear Pending Received 05/13/17 12:45 Bronchial Washings Left Upper Lobe Fungal Culture Pending Received 05/06/17 07:50 Urine Catheterized Urine Urine Culture - Final NO GROWTH IN 48 HOURS. Complete Imaging Last Impressions Chest X-Ray 05/16/17 06 Signed Impressions: Service Date/Time: Tuesday, May 16, 2017 03:28 - CONCLUSION: No significant interval change Olu Rodriguez MD Abdomen X-Ray 05/14/17 0600 Signed Impressions: Service Date/Time: Sunday, May 14, 2017 04:05 - CONCLUSION: Improved bowel gas pattern Olu Rodriguez MD Abdomen/Pelvis CT 05/12/17 0000 Signed Impressions: Service Date/Time: Friday, May 12, 2017 17:56 - CONCLUSION: 1. Left lower lobe collapse and lingular consolidation. Endobronchial soft tissue within the left lower lobe, Mass versus mucus plugging are differential diagnostic considerations. 2. Body wall edema and ascites. 3. Nonobstructing right renal calculus. 4. Colitis with abnormal bowel wall thickening involving the ascending colon, and diffuse small bowel dilatation characteristic of an ileus. Ray Finney MD Chest Ultrasound 05/08/17 0000 Signed Impressions: Service Date/Time: Monday, May 08, 2017 13:01 - CONCLUSION: 1. There is a small left pleural effusion with insufficient volume for thoracentesis at this time. Ronaldo Howell MD Abdomen Fluoroscopy 05/01/17 0000 Signed Impressions: Service Date/Time: Monday, May 01, 2017 13:13 - CONCLUSION: Uncomplicated nasogastric tube placement as above. Zain Kumar MD Lower Extremity Ultrasound 04/28/17 0000 Signed Impressions: Service Date/Time: Friday, April 28, 2017 16:47 - CONCLUSION: Negative exam with no evidence of deep venous thrombosis. Johnathon White MD Chest CT 04/28/17 0000 Signed Impressions: Service Date/Time: Friday, April 28, 2017 11:03 - CONCLUSION: 1. Small bilateral pleural effusions with atelectasis in both lower lobes. There is also a focal area of groundglass opacity in the lingula that is nonspecific but could represent an infectious or inflammatory process. 2. Moderate size hiatal hernia with dilated and fluid-filled esophagus suggesting gastroesophageal reflux. The nasogastric tube distal tip is in the distal esophagus and should ideally be advanced into the stomach. Olu Triana MD Head CT 04/27/17 1017 Signed Impressions: Service Date/Time: Thursday, April 27, 2017 11:00 - CONCLUSION: 1. No acute intracranial abnormality. 2. Complete opacification left maxillary sinus. Keagan Shipman MD Renal Ultrasound 04/27/17 0000 Signed Impressions: Service Date/Time: Thursday, April 27, 2017 23:50 - CONCLUSION: Negative renal sonogram. Rogerio Gunn MD Procedures 04/28 intubated 04/30 EGD 05/05 self extubated 05/06 decompressive colonoscopy 05/08 reintubated 05/12 decompressive colonoscopy . Assessment and Plan Disease Oriented Problem List: (1) Acute encephalopathy (2) Severe sepsis (3) COPD (chronic obstructive pulmonary disease) (4) Hyperammonemia (5) Hypoalbuminemia due to protein-calorie malnutrition (6) Hiatal hernia (7) Diverticulosis, sigmoid (8) Kidney stone on right side (9) Aspiration pneumonia (10) Hypokalemia (11) Hypomagnesemia (12) UTI (urinary tract infection) (13) Chronic alcoholism Symptom Scale: (1) Dyspnea 0-10 Scale: 0 (2) Malnutrition 0-10 Scale: Unable to quantify Comment: Albumin 3.1. (3) Encephalopathy 0-10 Scale: Unable to quantify Comment: more alert, mouthing words. (4) Anxiety 0-10 Scale: Unable to quantify Comment: easily agitated. Pertinent Non-Medical Issues Psychosocial:Patient estranged from second , but still legally to Caty Webb. 2 adult children, one disbaled, Other son Joseph Webb lives in [place], limited contact. Supported by mother, Dallas (lives [facility]) and sister Zakia (an RN) lives in [place]. Family reports has struggled with alcoholism his whole life, not working. Been in [place] about 10 years. Spiritual: [employer] alyssa. Legal: Patient currently incapacitated to make his health care decisions. No written advanced directives. Search for estranged has not produced any contact via [employer], [employer] or social media search, family does not have contact information. Therefore according to [place] statutes, health care proxy decision making falls to majority of adult children, he has 2 sons - one son disabled and dependent for care center not able to participate. Other son, Joseph Webb is willing to serve as health care proxy decision maker. Ethical issues impacting care: No known concerns at this time. . Important Contacts * Joseph Webb, son/HCP-: [phone] (In [place] - will driving from [place] to [place] leaving 05/17/17 in AM.) * Dallas Webb, mother: * Zakia Oscar, sister: [phone] (In [place] - will driving with son to [place] leaving 05/17/17 in AM.) . Prognosis This patient was admitted for altered mental status. He has had ongoing hepatic encephalopathy and debility secondary to alcohol abuse. This admission he has been intubated twice, is currently being treated for aspiration pneumonia. GI following, pathology from colonoscopy biopsies pending. Overall prognosis for meaningful recovery and independent function is poor given his history. Possible he can survive current acute hospitalization but would likely require tracheostomy and PEG tube to continue invasive/aggressive measures. . Code Status: Full Code Plan * Legal decision maker: Patient currently incapacitated to make his health care decisions. No written advanced directives. Search for estranged , Caty has not produced any contact via [employer], [employer] or social media search, family does not have contact information. Therefore according to [place] statutes, health care proxy decision making falls to majority of adult children , he has 2 sons - one son disabled and dependent for care center not able to participate. Other son, Joseph Webb is willing to serve as health care proxy decision maker. * FULL CODE * Goals remain aggressive at this time. Son, Joseph and patient's sister, Zakia are driving to [place] leaving [place], expected to arrive sometime tonight. Plan to meet with family on Sunday05/18/17 in AM. Family hopes patient can remain on mech vent until they arrive. Family reiterates patient would not want to be prolonged by tubes/machines and would not want trach/PEG. Anticipate change of code status once they are able to see patient. Dr. Raines aware and agrees with plan. * SYMPTOMS: No new medication recommendations at this time. --Dyspnea-second intubation this hospital admission for acute respiratory failure.+ Aspiration pneumonia, encephalopathy and inability to protect his airway; will likely require tracheostomy and PEG tube for longer-term aggressive interventions if goals aggressive and unable to wean. Dr. Raines may attempt another medical extubation. --Encephalopathy-hepatic, ? Sepsis. Recent ammonia level 45 despite lactulose , Xifaxan. --Malnutrition-patient with long history alcohol abuse chronic malnutrition likely given this diagnoses; albumin 3.1. --Anxiety/agitation-multifactorial, history EtOH abuse, has required Precedex drip on mechanical vent. More alert today, may attempt medical extubation per Dr. Raines. * Palliative care will continue to follow during hospital course as condition evolves, to assist patient/decision-maker with understanding of medical conditions, weighing benefits/burdens of treatment options, for clarification of goals of treatment. Additionally will assist with any symptoms of palliative concern . Attestation To help prompt me to consider important information that might be impacting today's encounter and assessment, information from prior notes written by myself or my colleagues may have been "brought forward" into today's note. My signature on this note, however, is an attestation that I personally performed the exam, history, and/or decision-making noted today, and, unless otherwise indicated, the interactions with patient, family, and staff as well as the review of records all occurred today. I also attest that the listed assessment and stated plan reflect my best clinical judgment today based on the combination of historical information, prior notes, and today's exam/ interactions. When time spent is documented, it refers only to time spent today by the signer, or if indicated, combined time spent today by collaborating physician/nurse practitioner. Adalgisa Ellington May 17, 2017 15:40
[2017-05-18] VITALS (28 sets, daily range): BP systolic 105–151; BP diastolic 69–104; PULSE 71–108; RESP 18–38; TEMP 98.1–99.1; O2SAT 92–100
[2017-05-18] MEDS: ALBUMIN HUMAN 5% 25 GM/500 ML BOTTLE IV SCH ×3 (01:32→23:21)
[2017-05-18] MEDS: RESP: ALBUTEROL 2.5 MG/IPRATROPIUM 0.5 MG NEB (SCH) NEB ×4 (03:43→20:02)
[2017-05-18] MEDS: ARTIFICIAL TEARS OPTH SOLN 15 ML BTL EACH EYE SCH ×3 (06:00→22:00)
[2017-05-18] MEDS: METOCLOPRAMIDE HCL 10 MG/2 ML VIAL IV PUSH SCH ×3 (06:00→22:00)
[2017-05-18] MEDS: metroNIDAZOLE 500 MG INJ 100 ML IV SCH ×3 (06:25→23:20)
[2017-05-18] MEDS: SODIUM CHLORIDE 0.9% FLUSH 10 ML FLUSH IVF SCH (09:00)
[2017-05-18] MEDS: SODIUM CHLORIDE 0.9% FLUSH 10 ML FLUSH IV FLUSH SCH (09:00)
[2017-05-18] MEDS: REMOVE OLD PATCH T-DERMAL SCH (09:00)
[2017-05-18] MEDS ORDERED: BUMETANIDE INJ 1 MG/4 ML VIAL IV PUSH ONE ×2 (09:30→15:00)
--- NOTE | 2017-05-18 09:40 | HHI.IDPN ---
Subjective Subjective Remarks is a 61y CM with PMHx of ETOH abuse, prior hepatic encephalopathy, chronic alcoholism, ETOH withdrawal seizures who presented with weakness, dizziness, and having a fall and not being able to get up, per EMR. He subsequently developed worsening fever and hypotension and went to [facility] and was intubated. He self extubated himself and got reintubated. GI onboard for likely cirrhosis, hiatal hernia, and hyper-ammonia. CT showed heterogenous density liver likely steatosis, small volume free fluid abdomen and pelvis, moderate hiatal hernia. Pt is heavy drinker. Pt was discharged from ER on 04/23 after being seen for hepatic encephalopathy. Hospital course: 04/30 s/p EGD yesterday with shoed esophagitis, gastritis, food impaction in distal esophagus removed. 05/06: Decompressive colonoscopy today. CT abdomen/pelvis last night showed development of gaseous distention of the right and transverse colon with abrupt change in luminal dimension at the splenic flexure. There is a rectal tube in place and cannot differentiate between a focal obstruction/stricture versus decompression from the rectal tube. At the time of my evaluation patient is in the [facility]. Currently on Levophed 8 mics. He has low grade fever but WBC normal. On ventilator with thick yellow secretions. Patient underwent decompressive colonoscopy and was found to have pseudomembranous colitis. Cdiff PCR sent and pending. Patient on oral vanco and Flagyl IV. He just returned from a CT A/P which shows bilateral infiltrates left more than right. ID consulted for evaluation and Mment of Cdiff Colitis. Overnight events reviewed No fever No rash Frothy oral secretions at times. Secretions thick, yellow, freq suctioning. Remains on vent, more awake today, follows commands, tries to voice: wants to get restraints off getting agitated. UO ok. Tube feeds on hold. CPAP trial planned possible extubation. Antibiotics Cefepime IV Flagyl IV I attest I obtained, reviewed or updated the home meds and current meds (for name, dose, freq and route). Current Medications Medications (Trade) Dose Ordered Sig/Brenda Route Start Time Stop Time Status Last Admin (Neurontin) 300 mg TID PO 04/27/17 13:00 Future hold 05/17/17 18:00 (Tylenol) 650 mg Q4H PRN PO 04/27/17 12:30 05/11/17 15:59 (Compazine Supp) 25 mg Q12H PRN RECTAL 04/27/17 12:30 (Narcan Inj) 0.4 mg UNSCH PRN IV PUSH 04/27/17 12:30 (Beena-Colace) 1 tab BID PO 04/27/17 21:00 Future hold 05/17/17 21:00 (Milk Of Magnesia Liq) 30 ml Q12H PRN PO 04/27/17 12:30 (Senokot) 17.2 mg Q12H PRN PO 04/27/17 12:30 (Dulcolax Supp) 10 mg DAILY PRN RECTAL 04/27/17 12:30 (Xifaxan) 550 mg BID PO 04/27/17 21:00 05/17/17 21:00 (Catapres) 0.1 mg Q6H PRN PO 04/27/17 12:30 (Habitrol 14 Mg Patch.24 Hr) 1 patch DAILY T-DERMAL 04/28/17 09:00 05/17/17 08:08 Miscellaneous Information 1 DAILY T-DERMAL 04/28/17 09:00 05/17/17 08:08 Miscellaneous Information Patient in critical care unit? Ass... [id number] .XX 04/27/17 17:30 Potassium Chloride 100 ml @ 50 mls/hr Q2H PRN IV 04/28/17 07:15 05/16/17 09:10 Potassium Chloride 100 ml @ 50 mls/hr Q2H PRN IV 04/28/17 07:15 05/09/17 11:15 (K-Lyte Cl Eff) 50 meq UNSCH PRN PO 04/28/17 07:15 Potassium Chloride 100 ml @ 25 mls/hr UNSCH PRN IV 04/28/17 07:15 Potassium Chloride 100 ml @ 50 mls/hr Q2H PRN IV 04/28/17 07:15 05/10/17 01:45 Magnesium Sulfate 4 gm/Sodium Chloride 100 ml @ 50 mls/hr UNSCH PRN IV 04/28/17 07:15 (Mag-Ox) 800 mg UNSCH PRN PO 04/28/17 07:15 Magnesium Sulfate 2 gm/Sodium Chloride 100 ml @ 50 mls/hr UNSCH PRN IV 04/28/17 07:15 05/15/17 17:54 (K-Phos) 2,000 mg Q4H PRN PO 04/28/17 07:15 Sodium Phosphate 30 mmol/Sodium Chloride 250 ml @ 42 mls/hr UNSCH PRN IV 04/28/17 07:15 05/10/17 10:31 (K-Phos) 2,000 mg UNSCH PRN PO/TUBE 04/28/17 07:15 Potassium Phosphate 30 mmol/ Sodium Chloride 260 ml @ 42 mls/hr UNSCH PRN IV 04/28/17 07:15 (Peridex 0.12% Liq) 15 ml BID@08,20 MT 04/28/17 20:00 05/17/17 20:00 (Tears Naturale Opth Soln) 1 drop Q8HR EACH EYE 04/28/17 14:00 05/18/17 06:00 (Protonix Inj) 40 mg DAILY IV PUSH 04/28/17 09:30 05/17/17 08:12 (NS Flush) DAILY IVF 04/29/17 15:45 05/17/17 08:12 (NS Flush) UNSCH PRN IVF 04/29/17 15:45 05/17/17 08:12 (Vitamin B1) 100 mg DAILY PO 04/30/17 09:15 05/17/17 08:12 (Theragran) 1 tab DAILY PO 04/30/17 09:15 05/17/17 08:12 (Folate) 1 mg DAILY PO 04/30/17 09:15 05/17/17 08:12 (Heparin Inj) 5,000 units Q12HR SQ 05/08/17 21:00 05/17/17 21:00 (Albuterol Neb) 2.5 mg Q2HR NEB PRN NEB 05/11/17 13:45 (Albumin 5% Inj) 25 gm Q12H IV 05/11/17 14:00 05/18/17 01:32 (Reglan Inj) 10 mg Q8HR IV PUSH 05/12/17 14:00 05/18/17 06:00 (NS Flush) DAILY IV FLUSH 05/13/17 09:00 05/17/17 08:13 (NS Flush) UNSCH PRN IV FLUSH 05/12/17 14:30 05/17/17 08:13 (Brethine Inj) 1 mg UNSCH PRN SQ 05/12/17 14:30 Cefepime HCl 2000 mg/Sodium Chloride 100 ml @ 200 mls/hr Q12H IV 05/13/17 12:00 05/18/17 00:00 (Lactulose Liq) 30 ml DAILY PO 05/14/17 09:00 05/17/17 08:12 (Symbicort 160-4.5 Inh) 2 puff Q12HR INH 05/15/17 10:30 05/16/17 09:18 (Duoneb Neb) 1 ampule Q6HR NEB NEB 05/16/17 11:30 05/18/17 09:11 Propofol 100 ml @ 2.85 mls/hr TITRATE PRN IV 05/16/17 11:30 05/17/17 08:10 Metronidazole 100 ml @ 100 mls/hr Q8H IV 05/16/17 15:00 05/18/17 06:25 (Bumex Inj) 2 mg DAILY IV PUSH 05/17/17 11:00 05/17/17 11:00 (K-Lyte Cl Eff) 25 meq DAILY PO 05/17/17 11:00 05/17/17 11:00 Lines Line sites with no e.o infection Past Medical History COPD and tobacco abuse Alcohol abuse History of alcohol withdrawal seizures Tonsillectomy Allergies: Coded Allergies: No Known Allergies (Verified Allergy, Unknown, 04/27/17) Uncoded Allergies: STEROIDS (Allergy, Unknown, 07/13/14) Objective . Vital Signs Date Time Temp Pulse Resp B/P (MAP) Pulse Ox O2 Delivery O2 Flow Rate FiO2 05/18/17 08:30 35 05/18/17 07:43 98 35 05/18/17 06:00 74 05/18/17 04:08 100 35 05/18/17 04:00 71 05/18/17 04:00 99.1 71 20 125/78 (94) 100 05/18/17 04:00 35 05/18/17 02:00 74 05/18/17 00:00 91 05/18/17 00:00 99.0 84 20 138/82 (100) 100 05/18/17 00:00 35 05/17/17 23:46 100 35 05/17/17 22:00 84 05/17/17 21:05 100 35 05/17/17 20:00 97.7 89 28 129/79 (96) 100 05/17/17 20:00 89 05/17/17 20:00 35 05/17/17 18:00 106 05/17/17 17:00 107 05/17/17 17:00 107 40 148/98 (115) 100 05/17/17 16:00 98.1 90 26 114/71 (85) 100 05/17/17 16:00 35 05/17/17 16:00 90 05/17/17 15:39 100 35 05/17/17 15:00 95 28 129/83 (98) 100 05/17/17 15:00 95 05/17/17 14:00 106 05/17/17 14:00 106 37 127/74 (91) 100 05/17/17 13:00 94 26 117/70 (86) 100 05/17/17 13:00 94 05/17/17 12:55 100 35 05/17/17 12:00 102 05/17/17 12:00 97.9 102 41 116/71 (86) 100 05/17/17 12:00 35 05/17/17 11:00 103 38 124/70 (88) 100 05/17/17 11:00 103 05/17/17 10:00 98 41 111/71 (84) 100 05/17/17 10:00 98 Imaging Last Impressions Chest X-Ray 05/12/17 0600 Signed Impressions: Service Date/Time: Friday, May 12, 2017 03:49 - CONCLUSION: Upper lobe infiltrate with unchanged left lower lobe infiltrate. Rogerio Harris Jr., MD Abdomen/Pelvis CT 05/12/17 0000 Signed Impressions: Service Date/Time: Friday, May 12, 2017 17:56 - CONCLUSION: 1. Left lower lobe collapse and lingular consolidation. Endobronchial soft tissue within the left lower lobe, Mass versus mucus plugging are differential diagnostic considerations. 2. Body wall edema and ascites. 3. Nonobstructing right renal calculus. 4. Colitis with abnormal bowel wall thickening involving the ascending colon, and diffuse small bowel dilatation characteristic of an ileus. Ray Finney MD Abdomen X-Ray 05/12/17 0000 Signed Impressions: Service Date/Time: Friday, May 12, 2017 06:36 - CONCLUSION: 1. Reinsertion of the rectal tube which is coiled within the rectal vault. It may be kinked and not draining well. 2. Persistent gaseous distention of the colon although a slight decrease in the volume of gas. 3. New mildly dilated gas-filled loops of small bowel. Rogerio Harris Jr., MD Chest Ultrasound 05/08/17 0000 Signed Impressions: Service Date/Time: Monday, May 08, 2017 13:01 - CONCLUSION: 1. There is a small left pleural effusion with insufficient volume for thoracentesis at this time. Ronaldo Howell MD Abdomen Fluoroscopy 05/01/17 Signed Impressions: Service Date/Time: Monday, May 01, 2017 13:13 - CONCLUSION: Uncomplicated nasogastric tube placement as above. Zain Kumar MD Lower Extremity Ultrasound 04/28/17 Signed Impressions: Service Date/Time: Friday, April 28, 2017 16:47 - CONCLUSION: Negative exam with no evidence of deep venous thrombosis. Johnathon White MD Chest CT 04/28/17 0000 Signed Impressions: Service Date/Time: Friday, April 28, 2017 11:03 - CONCLUSION: 1. Small bilateral pleural effusions with atelectasis in both lower lobes. There is also a focal area of groundglass opacity in the lingula that is nonspecific but could represent an infectious or inflammatory process. 2. Moderate size hiatal hernia with dilated and fluid-filled esophagus suggesting gastroesophageal reflux. The nasogastric tube distal tip is in the distal esophagus and should ideally be advanced into the stomach. Olu Triana MD Head CT 04/27/17 1017 Signed Impressions: Service Date/Time: Thursday, April 27, 2017 11:00 - CONCLUSION: 1. No acute intracranial abnormality. 2. Complete opacification left maxillary sinus. Keagan Shipman MD Renal Ultrasound 04/27/17 0000 Signed Impressions: Service Date/Time: Thursday, April 27, 2017 23:50 - CONCLUSION: Negative renal sonogram. Rogerio Gunn MD Physical Exam GENERAL: Obese, well-developed patient. SKIN: No rashes. Ecchymoses. Cool and dry. HEAD: Atraumatic. Normocephalic. No temporal or scalp tenderness. EYES: Pupils equal round and reactive. Extraocular motions intact. ENT: Nose without bleeding, purulent drainage or septal hematoma. Throat without erythema, tonsillar hypertrophy or exudate. Uvula midline. Airway patent. NECK: Intubated. CARDIOVASCULAR: Regular rate and rhythm without murmurs. RESPIRATORY: Clear to auscultation. Breath sounds equal bilaterally. No wheezes , rales, or rhonchi. GASTROINTESTINAL: Abdomen soft, non-tender, slightly distended. MUSCULOSKELETAL: Extremities without clubbing, cyanosis. Anasarca, Pedal edema 3 +. NEUROLOGICAL: Opens eyes, follows commands, moves all extremities. Psych could not be assessed. IV line sites with no e.o infection. Assessment & Plan Remarks Aspiration Pneumonia (vomiting due to Gaseous distention this am) s/p colonic decompression 05/12/17 and other times in this admission. Ileus s.p decompression Pseudomembranous colitis (r/o cdiff) COPD exacerbation Alcoholism Cirrhosis of liver. Acute metabolic encephalopathy recs Continue Cefepime (Re:Aspiration in Health care setting) Continue Flagyl IV (anaerobes and Cdiff coverage). Cdiff can be negative with use of barrier cream used in pericare. Needs IV flagyl as pt had N/V and GI issues yday. Follow bronch cultures. CXR today. follow cultures Follow clinically. Margarita GARCIA I will be OOT from 05/19/2017 to 05/27/2017. Other ID MDs to cover for me. Aleja Laboy MD May 18, 2017 09:40
[2017-05-18] MEDS: CHLORHEXIDINE 0.12% (ORAL KIT) 15 ML CUP MT SCH ×2 (09:43→20:00)
[2017-05-18] MEDS: BUDESONIDE-FORMOTEROL 160/4.5 MCG INHALER INH SCH ×2 (09:44→18:00)
[2017-05-18] MEDS: PANTOPRAZOLE SODIUM 40 MG VIAL IV PUSH SCH (09:47)
[2017-05-18] MEDS: BUMETANIDE INJ 1 MG/4 ML VIAL IV PUSH SCH (09:47)
[2017-05-18] MEDS: FOLIC ACID 1 MG TAB PO SCH (09:48)
[2017-05-18] MEDS: RIFAXIMIN 550 MG TAB PO SCH ×2 (09:48→21:00)
[2017-05-18] MEDS: THIAMINE HCL 100 MG TAB PO SCH (09:48)
[2017-05-18] MEDS: GABAPENTIN 300 MG CAP PO SCH ×4 (09:48→18:00)
[2017-05-18] MEDS: DOCUSATE SODIUM 50 MG/SENNA 8.6 MG TAB PO SCH ×2 (09:48→21:00)
[2017-05-18] MEDS: POTASSIUM CHLORIDE 25 MEQ EFFERVESCENT TAB PO SCH (09:48)
[2017-05-18] MEDS: LACTULOSE SYRUP 20 GM/30 ML CUP PO SCH (09:48)
[2017-05-18] MEDS: HEPARIN SODIUM - SQ 10,000 UNITS/ML VIAL SQ SCH (09:48)
[2017-05-18] MEDS: MULTIVITAMIN TAB PO SCH (09:48)
[2017-05-18] MEDS: NICOTINE 14 MG/24 HR PATCH T-DERMAL SCH (09:49)
--- NOTE | 2017-05-18 10:07 | HHI.CCPN ---
Subjective Remarks/Hospital Course 61yM with h/o prior hepatic encephalopathy, etoh abuse, tobacco abuse, now admitted with weakness, fever, chills, worsening hypotension. called by hospitalist service overnight for clinical decline despite ivf resuscitation. Patient does complain of flank pain, but denies chest pain, abdominal pain. u/a +. started earlier on vanc/zosyn. has not voided. becoming worseningly agitated. unable to provide any additional information due to altered mental status. 04/28: Chart reviewed. Patient still quite agitated stating "I have to pee" patient has a Young catheter. Complaining of flank pain. Noted renal ultrasound negative. Currently on norepinephrine at 12 mg per minute. 04/29: Resting in bed in no acute distress. Currently on norepinephrine at 7 per minute for vasopressor support. Transfuse 2 units PRBC and 2 pack platelets overnight. Dilutional. Absolutely no signs of active bleeding. 04/30 Patient is sedated with Fentanyl and intubated. On Levophed 5 mics. Afebrile. For EGD today. 05/01 No events overnight. Sedated and intubated. On Levophed 4 mics. s/p EGD yesterday with shoed esophagitis, gastritis, food impaction in distal esophagus removed. 05/02: Afebrile. Off all vasopressors. NG tube advanced by IR yesterday. Feeding to be initiated today. Currently on fentanyl drip 05/03: Remains intubated sedated and not following commands remains on fentanyl infusion. Attempt CPAP trial if patient wakeful enough. Urine output minimal only 300 mL in 24 hours. Will give albumin and Bumex 05/04 Patient is sedated with Fentanyl and intubated. Afebrile. 05/05 Patient was self extubated last night. For possible decompressive colonoscopy today. Afebrile. 05/06 Patient is on 3L oxygen for decompressive colonoscopy today. On Precedex drip for agitation. CT abdomen/pelvis last night showed development of gaseous distention of the right and transverse colon with abrupt change in luminal dimension at the splenic flexure. There is a rectal tube in place and cannot differentiate between a focal obstruction/stricture versus decompression from the rectal tube. 05/07 Patient s/p decompressive colonoscopy last night KUB this morning showed decreased colonic distention. On 4L oxygen. 05/08 Patient was unresponsive on BIPAP this morning and was in resp distress he was subsequently intubated and placed on mechanical ventilation. CXR post intubation showed complete opacification of left hemithorax likely 2nd mucous plug 05/09 Patient is sedated with Fentanyl and intubated. Afebrile. 05/10 Patient remains sedated and intubated. Afebrile. Tolerating tube feeds 05/11: Tolerated PSV trials 3 hours today. Not tolerating tube feeding currently. KUB pending. Positive BM. Decreased urine output noted. 05/12: Lasted 1 hour on PSV trials today. Currently vomiting will be decompressed from above and below per GI today. Afebrile. Central line placed due to persistent hypotension Subjective 05/13: Permission from mother for bronchoscopy today for diagnosis left lower lobe on CAT scan of min/pelvis yesterday. Sample sent. Currently on linezolid , cefepime and Flagyl per infectious disease. 05/14: Patient remains intubated sedated, on sedation hold do not follow commands , but moving extremities. Initially intubated 04/28, self extubated 05/05, Re intubated for mucus plugging, AMS on 05/07 night. Combined vent day 14, mental status will not permit extubation. Copious yellow ETT secretions. 05/15: Gets agitated on CPAP. But intermittently follows commands. Good oxygen saturation. Chest x-ray shows improved aeration. Moderate secretions from ET tube but good cough. Will proceed with extubation. Remains full code 05/16: Patient was extubated yesterday but failed in about 1 hour due to stridor and tachypnea. Today off sedation mentation seems to be improved, tolerates CPAP with high settings but has bilateral crackles and coarse rhonchi. Family (son and daughter) starting in from [place]. Will be here tomorrow 05/17/17 and request the patient to be left intubated until they get here 05/17: Patient is more awake alert and appropriate in communicating even though on low-dose propofol and intubated. [facility] [place] [facility] Possible weaning to extubation tomorrow 05/18: Awake alert following command on vent. Palliative care is meeting with family today. Once decision re: goals of care are made, most likely proceed with extubation Objective Vital Signs Date Time Temp Pulse Resp B/P (MAP) Pulse Ox O2 Delivery O2 Flow Rate FiO2 10/13/17 08:30 35 05/18/17 07:43 98 05/18/17 06:00 74 05/18/17 04:00 99.1 20 125/78 (94) 05/16/17 21:34 Ventilator 05/15/17 10:01 4 Intake and Output 05/18/17 05/18/17 05/19/17 08:00 16:00 00:00 Intake Total 1450 ml Output Total 850 ml Balance 600 ml Result Diagram: 05/16/17 0445 05/16/17 0445 Imaging Last Impressions Chest X-Ray 05/13/17 0000 Signed Impressions: Service Date/Time: Saturday, May 13, 2017 13:22 - CONCLUSION: Stable chest appearance. Nasogastric tube in the distal esophagus Olu Rodriguez MD Abdomen/Pelvis CT 05/12/17 0000 Signed Impressions: Service Date/Time: Friday, May 12, 2017 17:56 - CONCLUSION: 1. Left lower lobe collapse and lingular consolidation. Endobronchial soft tissue within the left lower lobe, Mass versus mucus plugging are differential diagnostic considerations. 2. Body wall edema and ascites. 3. Nonobstructing right renal calculus. 4. Colitis with abnormal bowel wall thickening involving the ascending colon, and diffuse small bowel dilatation characteristic of an ileus. Ray Finney MD Abdomen X-Ray 05/12/17 0000 Signed Impressions: Service Date/Time: Friday, May 12, 2017 06:36 - CONCLUSION: 1. Reinsertion of the rectal tube which is coiled within the rectal vault. It may be kinked and not draining well. 2. Persistent gaseous distention of the colon although a slight decrease in the volume of gas. 3. New mildly dilated gas-filled loops of small bowel. Rogerio Harris Jr., MD Chest Ultrasound 05/08/17 0000 Signed Impressions: Service Date/Time: Monday, May 08, 2017 13:01 - CONCLUSION: 1. There is a small left pleural effusion with insufficient volume for thoracentesis at this time. Ronaldo Howell MD Abdomen Fluoroscopy 05/01/17 0000 Signed Impressions: Service Date/Time: Monday, May 01, 2017 13:13 - CONCLUSION: Uncomplicated nasogastric tube placement as above. Zain Kumar MD Lower Extremity Ultrasound 04/28/17 0000 Signed Impressions: Service Date/Time: Friday, April 28, 2017 16:47 - CONCLUSION: Negative exam with no evidence of deep venous thrombosis. Johnathon White MD Chest CT 04/28/17 0000 Signed Impressions: Service Date/Time: Friday, April 28, 2017 11:03 - CONCLUSION: 1. Small bilateral pleural effusions with atelectasis in both lower lobes. There is also a focal area of groundglass opacity in the lingula that is nonspecific but could represent an infectious or inflammatory process. 2. Moderate size hiatal hernia with dilated and fluid-filled esophagus suggesting gastroesophageal reflux. The nasogastric tube distal tip is in the distal esophagus and should ideally be advanced into the stomach. Olu Triana MD Head CT 04/27/17 1017 Signed Impressions: Service Date/Time: Thursday, April 27, 2017 11:00 - CONCLUSION: 1. No acute intracranial abnormality. 2. Complete opacification left maxillary sinus. Keagan Shipman MD Renal Ultrasound 04/27/17 0000 Signed Impressions: Service Date/Time: Thursday, April 27, 2017 23:50 - CONCLUSION: Negative renal sonogram. Rogerio Gunn MD Objective Remarks GENERAL: 61 year old male critically ill currently orotracheally intubated SKIN: Warm and dry. No rash HEAD: Normocephalic. EYES: No scleral icterus. Pupils are round 3 mm bilaterally and reactive ENT: Orotracheally intubated. moderate amount of ET tube secretions NECK: Supple, trachea midline. No JVD or lymphadenopathy. Right IJ is clean dry and intact CARDIOVASCULAR: RRR. S1, S2 no S4 without murmur RESPIRATORY: Breath sounds equal bilaterally. No accessory muscle use. Basilar crackles improved GASTROINTESTINAL: Distended. Tenderness to deep palpation. No guarding. No rigidity. Hypoactive bowel sounds appreciated throughout. MSK: No significant peripheral edema NEURO: Eyes are spontaneously open. Improved mentation, following commands. Moves all 4 extremities Date of Insertion: Apr 28, 2017 Line: Central Venous Catheter Side: Right Location: Femoral A/P Assessment and Plan Neuro/Psych: Acute encephalopathy likely secondary to EtOH withdrawal/sepsis/hyperammonemia Alcohol dependence Propofol for sedation. Fentanyl infusion discontinued due to likely ileus. Goal of RASS -1. Daily sedation vacation Thiamine, folate and multivitamin daily CT brain 04/27 revealed left maxillary sinusitis otherwise no acute intra- cranial findings Patient does have a history of EtOH withdrawal seizures. Seizure precautions CV: Severe sepsis Lactic acidosis- cleared Monitor HR and BP keep MAP>65mmHg Norepinephrine as needed to keep map above 65 On scheduled Bumex to optimize fluid status, achieve negative fluid balance Resp: Acute respiratory failure- intubated 04/28, self extubated 05/05 reintubated 05/08 COPD exacerbation Stridor Ongoing tobaccoism Failed extubation yesterday 05/15/17 due to stridor and tachypnea. Possible extubation 05/18/17 after family arrives at bedside Decadron 4 mg 4 doses completed Due to possible mucous plugging left lower lobe on CAT scan 05/12. s/p bronchoscopy 05/13 with removal of mucous plug. Continue with vent support ACV / keep sat >92%. Albuterol/ipratropium aerosols every 6 hours and albuterol aerosols every 2 hours. PRN ICU vent bundle. SBT daily. Hold off any further extubation until son and daughter gets here from [place]-expected 05/17/17 night s/p Bronch with BAL 05/08: Thick secretions/mucous plug left main stem bronchus suctioned to clear CXR post bronch showed improved aeration left lung. Nicotine patch 14 mg daily. GI: Hyperammonemia Colonic Ileus Elevated AST Hypoalbuminemia- mild protein calorie malnutrition Hiatal hernia Sigmoid diverticulosis Hepatic steatosis Jevity 1.5 at 50 cc an hour. On lactulose 30 cc every 6 hours and Xifaxan 550 mg by mouth twice a day for elevated ammonia. CT abdomen/pelvis 05/12 revealed thickening ascending colon/small bowel dilatation/ileus. KUB 05/14 Improving bowel distention KUB 05/09: Mild improvements in bowel gas pattern. KUB 05/07: Decreased colonic distention s/p decompressive colonoscopy 05/06: Stool throughout the colon, Decompression colon tube was placed 05/05 CT abdomen/pelvis: showed development of gaseous distention of the right and transverse colon with abrupt change in luminal dimension at the splenic flexure. There is a rectal tube in place and cannot differentiate between a focal obstruction/stricture versus decompression from the rectal tube. KUB abdomen 05/04 showed severe ileus, cecum dilated to 10 cm s/p EGD 04/30: Esophagitis, gastritis, food impaction in distal esophagus removed. Pantoprazole for GI prophylaxis. Docusate sodium/senna 1 tablet twice a day for bowel regimen. Continue Reglan : Right kidney nonobstructing stone 3 mm Renal ultrasound revealed no hydronephrosis Monitor renal function, I/O's, electrolytes replacement per protocol. IV Bumex 1 mg x1 05/16 and daily UOI 3.3L in 24 hours Endo: Sliding-scale insulin to maintain euglycemia with Accu-Cheks every 6 hours with low regimen with Novolin R TSH: 3.14 04/28 Heme: Leukocytosis Macrocytic anemia Patient was transfused 2 pack platelets and 2 PRBC 04/28. Follow CBC daily. Monitor trends. ID: Possible C. difficile colitis Aspiration pneumonia, E Coli in sputum Per infectious disease on cefepime and metronidazole. Linezolid DCd 05/16/17 s/p Zosyn 04/27- onitor for signs of infections ( Fever, WBC) Afebrile, Follow up on BAL results 05/09 and 05/13- NGTD. Sputum E Coli-S to cefepime Pertinent cultures Blood cultures 2 -04/27 -no growth to date Urine culture - 04/27 -50 - 100,000 mixed gram-positive Sputum 04/28- normal resp andrea Urine pneumococcal and Legionella antigens negative MSK: PT evaluate and treat Access -RIJ CVL placed 05/12 Prophylaxis - GI - pantoprazole - DVT - SCD/ Heparin SQ , Level 3 Palliative care following to address goals of care. Daily SBT without extubation until family gets to the bedside. Son and daughter meeting with palliative care today. Patient may or may not be able to participate in decision making. After last extubation patient decompensated almost immediately Esteban Raines MD May 18, 2017 10:07
--- NOTE | 2017-05-18 10:26 | RADRPT ---
EXAM DATE/TIME: 05/18/2017 09:19 [facility] COMPARISON: CHEST SINGLE AP, May 16, 2017, 22:05. INDICATIONS : Pneumonia. MEDICAL HISTORY : Chronic obstructive pulmonary disease. SURGICAL HISTORY : None. ENCOUNTER: Subsequent ACUITY: 3 weeks PAIN SCORE: Non-responsive. LOCATION: Bilateral chest FINDINGS: A single portable frontal view of the chest shows a persistent and unchanged infiltrate within the le ft lung base. A new parenchymal density is seen within the right upper lobe and right lower lobe. No effusions. Heart is at the upper limits of normal in terms of size. Endotracheal tube tip is 5 cm fro m the hoda. Central line and nasogastric tube noted. CONCLUSION: Unchanged left lower lobe infiltrate with new small infiltrates involving the right upper lobe and ri ght lower lobe. Rogerio Harris Jr., MD on May 18, 2017 at 10:22 Board Certified Radiologist. This report was verified electronically.
[2017-05-18 10:34] LABS: AUTOMATED NEUTROPHIL # 8.1 TH/MM3 (1.8-7.7); BASOPHIL % 0.4 % (0.0-2.0); EOSINOPHIL # 0.1 TH/MM3 (0-0.4); EOSINOPHIL % 1.3 % (0.0-4.0); HEMO FLAGS DIFF FINAL; LYMPHOCYTE # 0.7 TH/MM3 (1.0-4.8); MEAN CELL VOLUME 104.3 FL (80.0-100.0); MEAN CORPUSCULAR HEMOGLOBIN 34.7 PG (27.0-34.0); MEAN CORPUSCULAR HGB CONC 33.3 % (32.0-36.0); MONO % 14.4 % (0.0-8.0); NEUT % 76.9 % (16.0-70.0); PLATELET COUNT 209 TH/MM3 (150-450); RED CELL DISTRIBUTION WIDTH 24.3 % (11.6-17.2); WHITE BLOOD COUNT 10.5 TH/MM3 (4.0-11.0)
--- NOTE | 2017-05-18 10:34 | HHI.GIFU ---
Subjective Remarks Reconsulted for worsening distention. Resting in bed on CPAP. Restless. Abdomen more distended today. + BM. (Kathrin Carreno) Objective Vitals I&O Vital Signs Date Time Temp Pulse Resp B/P (MAP) Pulse Ox O2 Delivery O2 Flow Rate FiO2 05/18/17 10:00 96 35 05/18/17 08:30 35 05/18/17 07:43 98 35 05/18/17 06:00 74 05/18/17 04:08 100 35 05/18/17 04:00 71 05/18/17 04:00 99.1 71 20 125/78 (94) 100 05/18/17 04:00 35 05/18/17 02:00 74 05/18/17 00:00 91 05/18/17 00:00 99.0 84 20 138/82 (100) 100 05/18/17 00:00 35 05/17/17 23:46 100 35 05/17/17 22:00 84 05/17/17 21:05 100 35 05/17/17 20:00 97.7 89 28 129/79 (96) 100 05/17/17 20:00 89 05/17/17 20:00 35 05/17/17 18:00 106 05/17/17 17:00 107 05/17/17 17:00 107 40 148/98 (115) 100 05/17/17 16:00 98.1 90 26 114/71 (85) 100 05/17/17 16:00 35 05/17/17 16:00 90 05/17/17 15:39 100 35 05/17/17 15:00 95 28 129/83 (98) 100 05/17/17 15:00 95 05/17/17 14:00 106 05/17/17 14:00 106 37 127/74 (91) 100 05/17/17 13:00 94 26 117/70 (86) 100 05/17/17 13:00 94 05/17/17 12:55 100 35 05/17/17 12:00 102 05/17/17 12:00 97.9 102 41 116/71 (86) 100 05/17/17 12:00 35 05/17/17 11:00 103 38 124/70 (88) 100 05/17/17 11:00 103 I/O 05/17/17 05/17/17 05/17/17 05/18/17 05/18/17 05/18/17 07:00 15:00 23:00 07:00 15:00 23:00 Intake Total 540 ml 1450 ml Output Total 1000 ml 2425 ml 850 ml Balance -1000 ml -1885 ml 600 ml IV Total 542 ml Tube Feeding 40 ml 408 ml Albumin 500 ml 500 ml Output Urine Total 1000 ml 2425 ml 850 ml # Bowel Movements 3 2 0 Laboratory Date/Time Source Procedure Growth Status 04/27/17 14:15 Blood Peripheral Aerobic Blood Culture - Final NO GROWTH IN 5 DAYS Complete 04/27/17 14:15 Blood Peripheral Anaerobic Blood Culture - Final NO GROWTH IN 5 DAYS Complete 05/13/17 12:45 Bronchial Washings Left Upper Lobe Fungal Smear Pending Received 05/13/17 12:45 Bronchial Washings Left Upper Lobe Fungal Culture Pending Received 05/06/17 07:50 Urine Catheterized Urine Urine Culture - Final NO GROWTH IN 48 HOURS. Complete Imaging Last Impressions Chest X-Ray 05/16/17599 Signed Impressions: Service Date/Time: Tuesday, May 16, 2017 03:28 - CONCLUSION: No significant interval change Olu Rodriguez MD Abdomen X-Ray 05/14/17 06 Signed Impressions: Service Date/Time: Sunday, May 14, 2017 04:05 - CONCLUSION: Improved bowel gas pattern Olu Rodriguez MD Abdomen/Pelvis CT 05/12/17 0000 Signed Impressions: Service Date/Time: Friday, May 12, 2017 17:56 - CONCLUSION: 1. Left lower lobe collapse and lingular consolidation. Endobronchial soft tissue within the left lower lobe, Mass versus mucus plugging are differential diagnostic considerations. 2. Body wall edema and ascites. 3. Nonobstructing right renal calculus. 4. Colitis with abnormal bowel wall thickening involving the ascending colon, and diffuse small bowel dilatation characteristic of an ileus. Ray Finney MD Chest Ultrasound 05/08/17 0000 Signed Impressions: Service Date/Time: Monday, May 08, 2017 13:01 - CONCLUSION: 1. There is a small left pleural effusion with insufficient volume for thoracentesis at this time. Ronaldo Howell MD Abdomen Fluoroscopy 05/01/17 0000 Signed Impressions: Service Date/Time: Monday, May 01, 2017 13:13 - CONCLUSION: Uncomplicated nasogastric tube placement as above. Zain Kumar MD Lower Extremity Ultrasound 04/28/17 0000 Signed Impressions: Service Date/Time: Friday, April 28, 2017 16:47 - CONCLUSION: Negative exam with no evidence of deep venous thrombosis. Johnathon White MD Chest CT 04/28/17 0000 Signed Impressions: Service Date/Time: Friday, April 28, 2017 11:03 - CONCLUSION: 1. Small bilateral pleural effusions with atelectasis in both lower lobes. There is also a focal area of groundglass opacity in the lingula that is nonspecific but could represent an infectious or inflammatory process. 2. Moderate size hiatal hernia with dilated and fluid-filled esophagus suggesting gastroesophageal reflux. The nasogastric tube distal tip is in the distal esophagus and should ideally be advanced into the stomach. Olu Triana MD Head CT 04/27/17 1017 Signed Impressions: Service Date/Time: Thursday, April 27, 2017 11:00 - CONCLUSION: 1. No acute intracranial abnormality. 2. Complete opacification left maxillary sinus. Keagan Shipman MD Renal Ultrasound 04/27/17 0000 Signed Impressions: Service Date/Time: Thursday, April 27, 2017 23:50 - CONCLUSION: Negative renal sonogram. Rogerio Gunn MD Physical Exam HEENT: Normocephalic CHEST: Resp even, mildly labored. Course breath sounds. OETT to vent (CPAP). 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 CT Scan abdomen and pelvis with IV contrast (05/12/17)----> left lower lobe collapse and lingular consolidation. endobronchial sot tissue within left lower lobe, mass versus mucus plugging are differential diagnostic considerations. Body wall edema and ascites, nonobstructing renal calculus, colitis with abnormal bowel wall thickening involving the ascending colon, and diffuse small bowel dilatation suggesting ileus . S/P 2 SSE. S/P Relistor S/P Decompressive colonoscopy (05/06/17)----> stool throughout the colon, I did not see any masses, visualization was compromised with stool, decompression colon tube was placed. S/P Decompressive colonoscopy (05/12/17)---> Diverticulosis sigmoid poor prep, superficial ulcerations in ascending colon and cecum-biopsy with, pseudomembranes-consistent with cdiff. Pathology fragments of colonic mucosa and fragments of acute inflammatory exudate with ghost outlines of colonic mucosa, suggestive of ischemia. This could be seen in either pseudomembranous colitis or in ischemic colitis. Clinical correlation is suggested. Stools negative for cdiff pcr. Pt had improved and therefore we had signed off, but today we were reconsulted for worsening distention. Await KUB. TF on hold. Cont. Miralax, Lactulose. Flagyl was restarted - Colitis/pseudomembranes. CDiff vs. ischemic colitis. Pathology as above. Stool was negative for CDiff pcr. Flagyl restarted. - Anemia, macrocytic. S/P EGD (04/30/17)---> Martinez esophagus, Esophagitis, Gastritis, Foreign body in the distal esophagus. Pathology reactive gastropathy. S/P 2 units RBC, 2 units Platelets. Vitamin B12 1298. PPI. HH 7.9/24.2. - Martinez's Esophagus, Esophagitis, Gastritis. Pathology reactive gastropathy. PPI - Foreign body in distal esophagus, s/p EGD. - Elevated ammonia, acute encephalopathy. Ammonia 45. Lactulose, Xifaxan. - Elevated bilirubin. CT as above. History of ETOH abuse, drinks 1/5 of vodka daily. Hypoalbuminemia with albumin 2.1. Mild coagulopathy. Suspect liver cirrhosis, likely secondary to alcohol, fatty liver disease. - Thrombocytopenia. S/P 2 platelet transfusion. - Sepsis, unclear source. Urine negative for legionella, streptococcus, bcx neg , sputum cx with light growth normal respiratory andrea. CT reveals possible pneumonia. Colonoscopy---> pseudomembranes consistent with cdiff vs. ischemia. Flagyl, Cefepime - Respiratory failure, COPD. Extubated, but required reintubated. PLAN - NPO for now - KUB - Cont. Flagyl - Cont. Lactulose - Cont. Xifaxan - Cont. PPI - Monitor labs - Supportive care - Palliative care meeting today - Further recommendations to follow based on results of above - Patient seen and examined by Dr. Loving and myself and this note is written on his behalf. (Kathrin Carreno) Physician Comments Seen and examined with SIMI, reconsulted for worsening abdominal distension. Check kub. Monitor labs. Moving his bowels. (Harrison Loving MD) Kathrin Carreno May 18, 2017 10:34 Harrison Loving MD May 18, 2017 12:50
[2017-05-18] MEDS: POTASSIUM CHLOR 20 MEQ PREMIX 100 ML IV PRN ×2 (10:48→18:51)
[2017-05-18 10:56] LABS: BLOOD GAS CARBOXYHEMOGLOBIN 1.5 % (0-4); BLOOD GAS HCO3 24 mmol/L (22-26); BLOOD GAS METHEMOGLOBIN 1.1 % (0-2); BLOOD GAS O2 HGB SATURATION 96 % (90-100); BLOOD GAS OXYGEN CONTENT 11.1 Vol % (12.0-20.0); BLOOD GAS PCO2 39 mmHg (38-42); BLOOD GAS PO2 104 mmHg (61-120); BLOOD GAS TOTAL HGB 8.1 G/DL (12.0-16.0); CRITICAL VALUE NO; TEMP CORR TO 98.6
[2017-05-18 10:57] LABS: DRAW SITE LT RADIAL; FIO2 35 %; NUMBER OF ARTERIAL PUNCTURES 1; OXYGEN DEVICE VENTILATOR; STAT NO; ULNAR PULSE PRESENT; VENT SETTINGS PS5/ PEEP5
[2017-05-18 11:00] LABS: ANION GAP 10 MEQ/L (5-15); AST (GOT) 18 U/L (15-37); BLOOD UREA NITROGEN 9 MG/DL (7-18); CHLORIDE 108 MEQ/L (98-107); GLOMERULAR FILTRATION RATE 207 ML/MIN (>89); SODIUM (NA) 141 MEQ/L (136-145)
[2017-05-18 11:05] LABS: ALKALINE PHOSPHATASE 79 U/L (45-117); ALT (GPT) 11 U/L (12-78); TOTAL BILIRUBIN ADULT 0.6 MG/DL (0.2-1.0)
--- NOTE | 2017-05-18 11:05 | RADRPT ---
EXAM DATE/TIME: 05/18/2017 09:30 [facility] COMPARISON: ABDOMEN KUB ONLY, May 14, 2017, 8:53. INDICATIONS : Ileus. MEDICAL HISTORY : Seizures. Chronic obstructive pulmonary disease SURGICAL HISTORY : None. ENCOUNTER: Subsequent ACUITY: 3 weeks PAIN SCORE: Non-responsive. LOCATION: Bilateral Abdomen. FINDINGS: Nasogastric tube across the GE junction. Scattered gas filled nondilated loops of large and small aminta wel suggesting ileus. There is no free air. CONCLUSION: Probably ileus, progressed from 05/14/17. Rogerio Harris Jr., MD on May 18, 2017 at 10:43 Board Certified Radiologist. This report was verified electronically.
[2017-05-18] MEDS: CEFEPIME INJ 2,000 MG in SODIUM CHLORIDE 0.9% INJ 100 ML IV SCH ×4 (14:13→23:19)
[2017-05-18] MEDS ORDERED: ETOMIDATE 40 MG/20 ML VIAL ONE (17:46)
[2017-05-18] MEDS ORDERED: MIDAZOLAM HCL 5 MG/ML VIAL (1 ML) ONE (17:46)
[2017-05-18] MEDS ORDERED: ROCURONIUM INJ 50 MG/5 ML VIAL ONE (17:47)
[2017-05-18] MEDS: methylPREDNISolone SOD SUCC 125 MG/2 ML VIAL IV PUSH SCH (18:00)
[2017-05-18] MEDS: TIOTROPIUM BROMIDE 18 MCG INH INH SCH (18:00)
[2017-05-18] MEDS: PROPOFOL 1000 MG/100 ML INJ 100 ML IV PRN (18:00)
--- NOTE | 2017-05-18 18:01 | PD.PROCEDR ---
Procedure Note Procedure PROCEDURE: Orotracheal intubation INDICATION: Acute respiratory failure, tachypnea DETAILS OF PROCEDURE The patient was placed in optimal position and preoxygenated with 100% FiO2 via BiPAP and then bag valve mask. Start oxygen saturation was 100%. The patient was administered 20 mg etomidate IV, 5 mg IV Versed and 50 milligrams rocuronium IV. With Mac blade and obtained a grade 1 view of the airway. On single attempt a size 8.0 cuffed endotracheal tube was passed through the vocal cords. Correct tube location was confirmed with end tidal CO2 detector and by auscultating over bilateral lung escalante. The endotracheal tube was secured with adhesive tape at a depth of 24 cm at the lips. The patient was connected to the ventilator. The patient tolerated the procedure well without any apparent complications. Oxygen saturations were maintained greater than 95% all times. STAT chest x-ray pending at time of dictation. Esteban Raines MD May 18, 2017 18:01
--- NOTE | 2017-05-18 19:17 | HHI.HCPN ---
Reason for visit a. To assist with evaluation and management of symptoms including: dyspnea, agitation. b. To assist medical decision maker(s) with: better understanding of current medical conditions; weighing benefits/burdens of medical treatment options; making medical treatment decisions. . Subjective/Interval History LATE ENTRY: VISIT 4pm: Patient seen and examined in ICU. Family at bedside. Discussed with Dr. Raines, plan for extubation today. Patient is awake and alert. Attempts to communicate, he is mouthing words. He appears agitated. I was present for extubation, patient able to answer questions, he is asking appropriate questions. Unable to decide if he wants reintubation vs. comfort. He asks to speak with family. After lengthy conversation with family in which family reports he is confused, talking about cars he does not have. He tells the nurse he wants "life saving" when she asks him. Son agrees then to FULL CODE and reintubation if needed. I suspect he will fail as patient is tachycardic, hypertensive with bilateral course breath sounds and congestion. . Family/friend interactions See interval note. Advance Directives Living Will: Never completed Health Care Surrogate: Never completed Durable Power of Brand Sales Consultant: Never completed Advance Directive Specifics Health Care Surrogate(s): Patient currently incapacitated to make his health care decisions. No written advanced directives. Search for estranged has not produced any contact via [employer], [employer] or social media search, family does not have contact information. Therefore according to [place] statutes, health care proxy decision making falls to majority of adult children, he has 2 sons - one son disabled and dependent for care center not able to participate. Other son, Joseph Webb is willing to serve as health care proxy decision maker. . Significant change in goals: FULL CODE. Goals remain aggressive at this time including reintubation and FULL CODE. . Objective Vital Signs Date Time Temp Pulse Resp B/P (MAP) Pulse Ox O2 Delivery O2 Flow Rate FiO2 05/18/17 18:04 100 35 05/18/17 17:00 99 30 133/98 (110) 100 05/18/17 16:31 97 27 141/96 (111) 100 05/18/17 16:06 98 05/18/17 16:06 98 27 151/103 (119) 100 05/18/17 16:00 98 05/18/17 16:00 96 Nasal Cannula 3.00 05/18/17 16:00 98.1 05/18/17 16:00 98 37 147/100 (116) 100 05/18/17 15:45 100 Mask 6 05/18/17 14:00 100 05/18/17 14:00 100 38 143/97 (112) 100 05/18/17 13:00 99 05/18/17 13:00 99 35 144/98 (113) 99 05/18/17 12:10 95 35 05/18/17 12:03 108 05/18/17 12:03 108 37 146/93 (110) 92 05/18/17 12:00 107 36 143/104 (117) 92 05/18/17 12:00 35 05/18/17 12:00 107 05/18/17 12:00 98.3 05/18/17 11:00 98 05/18/17 10:00 92 05/18/17 10:00 92 38 138/89 (105) 100 05/18/17 10:00 96 35 05/18/17 09:00 84 30 143/90 (107) 100 05/18/17 08:30 35 05/18/17 08:10 82 29 147/90 (109) 100 05/18/17 08:00 83 29 100 05/18/17 08:00 98.6 05/18/17 08:00 83 05/18/17 08:00 35 05/18/17 07:43 98 35 05/18/17 06:00 74 05/18/17 04:08 100 35 05/18/17 04:00 71 05/18/17 04:00 99.1 71 20 125/78 (94) 100 05/18/17 04:00 35 05/18/17 02:00 74 05/18/17 00:00 91 05/18/17 00:00 99.0 84 20 138/82 (100) 100 05/18/17 00:00 35 05/17/17 23:46 100 35 05/17/17 22:00 84 05/17/17 21:05 100 35 05/17/17 20:00 97.7 89 28 129/79 (96) 100 05/17/17 20:00 89 05/17/17 20:00 35 Physical Exam CONSTITUTIONAL/GENERAL: This is an adequately nourished patient, awake mildly restless/ on mech vent. TUBES/LINES/DRAINS: Peripheral IV left upper extremity, right IJ central line, Young catheter, Bilateral soft restraints upper extremities. SKIN: No jaundice, rashes, or lesions. scattered Ecchymoses on upper extremities. No wounds seen anteriorly. Skin warm. CARDIOVASCULAR: RRR. RESPIRATORY/CHEST: Symmetric, mildly labored respirations. +tachypneic. Coarse scattered rhonchi. Wheezes noted left. Breath sounds equal bilaterally. GASTROINTESTINAL: Abdomen soft, mildly distended, bowel sounds +. GENITOURINARY: Without palpable bladder distension. Young catheter in place. MUSCULOSKELETAL: Extremities without clubbing, cyanosis. 2-3 + edema to upper and lower extremities. NEUROLOGICAL: Awake tracks examiners, mouthing words. Follows commands. PSYCHIATRIC: Easily agitated, restless. . Diagnostic Tests Laboratory Laboratory Tests Test 05/16/17 04:45 05/18/17 10:00 05/18/17 10:40 White Blood Count 6.2 TH/MM3 (4.0-11.0) 10.5 TH/MM3 (4.0-11.0) Red Blood Count 2.28 MIL/MM3 (4.50-5.90) 2.20 MIL/MM3 (4.50-5.90) Hemoglobin 7.9 GM/DL (13.0-17.0) 7.7 GM/DL (13.0-17.0) Hematocrit 24.2 % (39.0-51.0) 23.0 % (39.0-51.0) Mean Corpuscular Volume 106.3 FL (80.0-100.0) 104.3 FL (80.0-100.0) Mean Corpuscular Hemoglobin 34.6 PG (27.0-34.0) 34.7 PG (27.0-34.0) Mean Corpuscular Hemoglobin Concent 32.5 % (32.0-36.0) 33.3 % (32.0-36.0) Red Cell Distribution Width 24.2 % (11.6-17.2) 24.3 % (11.6-17.2) Platelet Count 166 TH/MM3 (150-450) 209 TH/MM3 (150-450) Mean Platelet Volume 10.7 FL (7.0-11.0) 9.1 FL (7.0-11.0) Neutrophils (%) (Auto) 74.5 % (16.0-70.0) 76.9 % (16.0-70.0) Lymphocytes (%) (Auto) 11.7 % (9.0-44.0) 7.0 % (9.0-44.0) Monocytes (%) (Auto) 13.0 % (0.0-8.0) 14.4 % (0.0-8.0) Eosinophils (%) (Auto) 0.5 % (0.0-4.0) 1.3 % (0.0-4.0) Basophils (%) (Auto) 0.3 % (0.0-2.0) 0.4 % (0.0-2.0) Neutrophils # (Auto) 4.6 TH/MM3 (1.8-7.7) 8.1 TH/MM3 (1.8-7.7) Lymphocytes # (Auto) 0.7 TH/MM3 (1.0-4.8) 0.7 TH/MM3 (1.0-4.8) Monocytes # (Auto) 0.8 TH/MM3 (0-0.9) 1.5 TH/MM3 (0-0.9) Eosinophils # (Auto) 0.0 TH/MM3 (0-0.4) 0.1 TH/MM3 (0-0.4) Basophils # (Auto) 0.0 TH/MM3 (0-0.2) 0.0 TH/MM3 (0-0.2) CBC Comment DIFF FINAL DIFF FINAL Differential Comment Blood Urea Nitrogen 8 MG/DL (7-18) 9 MG/DL (7-18) Creatinine 0.36 MG/DL (0.60-1.30) 0.42 MG/DL (0.60-1.30) Random Glucose 107 MG/DL (74-106) 130 MG/DL (74-106) Total Protein 5.5 GM/DL (6.4-8.2) 5.7 GM/DL (6.4-8.2) Albumin 3.1 GM/DL (3.4-5.0) 3.2 GM/DL (3.4-5.0) Calcium Level 8.4 MG/DL (8.5-10.1) 8.8 MG/DL (8.5-10.1) Alkaline Phosphatase 86 U/L (45-117) 79 U/L (45-117) Aspartate Amino Transf (AST/SGOT) 18 U/L (15-37) 18 U/L (15-37) Alanine Aminotransferase (ALT/SGPT) 11 U/L (12-78) 11 U/L (12-78) Total Bilirubin 0.6 MG/DL (0.2-1.0) 0.6 MG/DL (0.2-1.0) Sodium Level 139 MEQ/L (136-145) 141 MEQ/L (136-145) Potassium Level 3.4 MEQ/L (3.5-5.1) 3.0 MEQ/L (3.5-5.1) Chloride Level 107 MEQ/L (98-107) 108 MEQ/L (98-107) Carbon Dioxide Level 22.6 MEQ/L (21.0-32.0) 23.0 MEQ/L (21.0-32.0) Anion Gap 9 MEQ/L (5-15) 10 MEQ/L (5-15) Estimat Glomerular Filtration Rate 247 ML/MIN (>89) 207 ML/MIN (>89) Blood Gas Puncture Site LT RADIAL Blood Gas Patient Temperature 98.6 Blood Gas HCO3 24 mmol/L (22-26) Blood Gas Base Excess 0.0 mmol/L (-2-2) Blood Gas Oxygen Saturation 96 % (90-100) Arterial Blood pH 7.41 (7.380-7.420) Arterial Blood Partial Pressure CO2 39 mmHg (38-42) Arterial Blood Partial Pressure O2 104 mmHg (61-120) Arterial Blood Oxygen Content 11.1 Vol % (12.0-20.0) Arterial Blood Carboxyhemoglobin 1.5 % (0-4) Arterial Blood Methemoglobin 1.1 % (0-2) Blood Gas Hemoglobin 8.1 G/DL (12.0-16.0) Oxygen Delivery Device VENTILATOR Blood Gas Ventilator Setting PS5/ PEEP5 Blood Gas Inspired Oxygen 35 % Result Diagram: 05/18/17 1000 05/18/17 1000 Microbiology Microbiology Date/Time Source Procedure Growth Status 04/27/17 14:15 Blood Peripheral Aerobic Blood Culture - Final NO GROWTH IN 5 DAYS Complete 04/27/17 14:15 Blood Peripheral Anaerobic Blood Culture - Final NO GROWTH IN 5 DAYS Complete 05/13/17 12:45 Bronchial Washings Left Upper Lobe Fungal Smear Pending Received 05/13/17 12:45 Bronchial Washings Left Upper Lobe Fungal Culture Pending Received 05/06/17 07:50 Urine Catheterized Urine Urine Culture - Final NO GROWTH IN 48 HOURS. Complete Imaging Last Impressions Chest X-Ray 05/18/17 0000 Signed Impressions: Service Date/Time: Thursday, May 18, 2017 09:19 - CONCLUSION: Unchanged left lower lobe infiltrate with new small infiltrates involving the right upper lobe and right lower lobe. Rogerio Harris Jr., MD Abdomen X-Ray 05/18/17 0000 Signed Impressions: Service Date/Time: Thursday, May 18, 2017 09:30 - CONCLUSION: Probably ileus , progressed from 05/14/17. Rogerio Harris Jr., MD Abdomen/Pelvis CT 05/12/17 0000 Signed Impressions: Service Date/Time: Friday, May 12, 2017 17:56 - CONCLUSION: 1. Left lower lobe collapse and lingular consolidation. Endobronchial soft tissue within the left lower lobe, Mass versus mucus plugging are differential diagnostic considerations. 2. Body wall edema and ascites. 3. Nonobstructing right renal calculus. 4. Colitis with abnormal bowel wall thickening involving the ascending colon, and diffuse small bowel dilatation characteristic of an ileus. Ray Finney MD Chest Ultrasound 05/08/17 0000 Signed Impressions: Service Date/Time: Monday, May 08, 2017 13:01 - CONCLUSION: 1. There is a small left pleural effusion with insufficient volume for thoracentesis at this time. Ronaldo Howell MD Abdomen Fluoroscopy 05/01/17 0000 Signed Impressions: Service Date/Time: Monday, May 01, 2017 13:13 - CONCLUSION: Uncomplicated nasogastric tube placement as above. Zain Kumar MD Lower Extremity Ultrasound 04/28/17 0000 Signed Impressions: Service Date/Time: Friday, April 28, 2017 16:47 - CONCLUSION: Negative exam with no evidence of deep venous thrombosis. Johnathon White MD Chest CT 04/28/17 0000 Signed Impressions: Service Date/Time: Friday, April 28, 2017 11:03 - CONCLUSION: 1. Small bilateral pleural effusions with atelectasis in both lower lobes. There is also a focal area of groundglass opacity in the lingula that is nonspecific but could represent an infectious or inflammatory process. 2. Moderate size hiatal hernia with dilated and fluid-filled esophagus suggesting gastroesophageal reflux. The nasogastric tube distal tip is in the distal esophagus and should ideally be advanced into the stomach. Olu Triana MD Head CT 04/27/17 1017 Signed Impressions: Service Date/Time: Thursday, April 27, 2017 11:00 - CONCLUSION: 1. No acute intracranial abnormality. 2. Complete opacification left maxillary sinus. Keagan Shipman MD Renal Ultrasound 04/27/17 0000 Signed Impressions: Service Date/Time: Thursday, April 27, 2017 23:50 - CONCLUSION: Negative renal sonogram. Rogerio Gunn MD Procedures 04/28 intubated 04/30 EGD 05/05 self extubated 05/06 decompressive colonoscopy 05/08 reintubated 05/12 decompressive colonoscopy 05/18 - extubated . Assessment and Plan Disease Oriented Problem List: (1) Acute encephalopathy (2) Severe sepsis (3) COPD (chronic obstructive pulmonary disease) (4) Hyperammonemia (5) Hypoalbuminemia due to protein-calorie malnutrition (6) Hiatal hernia (7) Diverticulosis, sigmoid (8) Kidney stone on right side (9) Aspiration pneumonia (10) Hypokalemia (11) Hypomagnesemia (12) UTI (urinary tract infection) (13) Chronic alcoholism Symptom Scale: (1) Dyspnea 0-10 Scale: 0 (2) Malnutrition 0-10 Scale: Unable to quantify Comment: Albumin 3.1. (3) Encephalopathy 0-10 Scale: Unable to quantify Comment: more alert, mouthing words. (4) Anxiety 0-10 Scale: Unable to quantify Comment: easily agitated. Pertinent Non-Medical Issues Psychosocial:Patient estranged from second , but still legally to Caty Webb. 2 adult children, one disbaled, Other son Joseph Webb lives in [place], limited contact. Supported by mother, Dallas (lives local) and sister Zakia (an RN) lives in [place]. Family reports has struggled with alcoholism his whole life, not working. Been in [place] about 10 years. Spiritual: Muslim alyssa. Legal: Patient currently incapacitated to make his health care decisions. No written advanced directives. Search for estranged has not produced any contact via [employer] or [employer] search, family does not have contact information. Therefore according to [place] statutes, health care proxy decision making falls to majority of adult children, he has 2 sons - one son disabled and dependent for care center not able to participate. Other son, Joseph Webb is willing to serve as health care proxy decision maker. Ethical issues impacting care: No known concerns at this time. . Important Contacts * Joseph Webb, son/HCP-: [phone] (In [place] - will driving from [place] to [place] leaving 05/17/17 in AM.) * Dallas Webb, mother: * Zakia Moore, sister: [phone] (In [place] - will driving with son to [place] leaving 05/17/17 in AM.) . Prognosis This patient was admitted for altered mental status. He has had ongoing hepatic encephalopathy and debility secondary to alcohol abuse. This admission he has been intubated twice, is currently being treated for aspiration pneumonia. GI following, pathology from colonoscopy biopsies pending. Overall prognosis for meaningful recovery and independent function is poor given his history. Possible he can survive current acute hospitalization but would likely require tracheostomy and PEG tube to continue invasive/aggressive measures. . Code Status: Full Code Plan * Legal decision maker: Patient currently incapacitated to make his health care decisions. No written advanced directives. Search for estranged Caty has not produced any contact via [employer] or [employer] search, family does not have contact information. Therefore according to [place] statutes, health care proxy decision making falls to majority of adult children , he has 2 sons - one son disabled and dependent for care center not able to participate. Other son, Joseph Webb is willing to serve as health care proxy decision maker. * FULL CODE * I was present for extubation, patient able to answer questions, he is asking appropriate questions. Unable to decide if he wants reintubation vs. comfort. He asks to speak with family. After lengthy conversation with family in which family reports he is confused, talking about cars he does not have. He tells the nurse he wants "life saving" when she asks him. Son agrees then to FULL CODE and reintubation if needed. * SYMPTOMS: No new medication recommendations at this time. --Dyspnea-second intubation this hospital admission for acute respiratory failure.+ Aspiration pneumonia, encephalopathy and inability to protect his airway; will likely require tracheostomy and PEG tube for longer-term aggressive interventions if goals aggressive and unable to wean. Dr. Raines may attempt another medical extubation. --Encephalopathy-hepatic, ? Sepsis. Recent ammonia level 45 despite lactulose , Xifaxan. --Malnutrition-patient with long history alcohol abuse chronic malnutrition likely given this diagnoses; albumin 3.1. --Anxiety/agitation-multifactorial, history EtOH abuse, has required Precedex drip on mechanical vent. More alert today, may attempt medical extubation per Dr. Raines. * Palliative care will continue to follow during hospital course as condition evolves, to assist patient/decision-maker with understanding of medical conditions, weighing benefits/burdens of treatment options, for clarification of goals of treatment. Additionally will assist with any symptoms of palliative concern . Attestation To help prompt me to consider important information that might be impacting today's encounter and assessment, information from prior notes written by myself or my colleagues may have been "brought forward" into today's note. My signature on this note, however, is an attestation that I personally performed the exam, history, and/or decision-making noted today, and, unless otherwise indicated, the interactions with patient, family, and staff as well as the review of records all occurred today. I also attest that the listed assessment and stated plan reflect my best clinical judgment today based on the combination of historical information, prior notes, and today's exam/ interactions. When time spent is documented, it refers only to time spent today by the signer, or if indicated, combined time spent today by collaborating physician/nurse practitioner. Adalgisa Ellington May 18, 2017 19:17
--- NOTE | 2017-05-18 20:56 | RADRPT ---
EXAM DATE/TIME: 05/18/2017 18:10 [facility] COMPARISON: CHEST SINGLE AP, May 12, 2017, 3:49. ABDOMEN KUB ONLY, May 11, 2017, 17:41. CHEST SINGLE AP, May 15, 2017, 4:04. CHEST SINGLE AP, May 18, 2017, 9:19. INDICATIONS : Shortness of breath MEDICAL HISTORY : Chronic obstructive pulmonary disease SURGICAL HISTORY : None. ENCOUNTER: Subsequent ACUITY: 3 weeks PAIN SCORE: Non-responsive. LOCATION: Bilateral chest FINDINGS: The patient is intubated with the tip of the ET tube 2.4 cm from the hoda. There is a right internal jugular central line in place with the tip overlying the SVC. The heart size is upp er limits of normal for size. There is increased density in the left base in the retrocardiac area wi th silhouetting of the left hemidiaphragm. There is also focal increased density at the superior lat eral right upper lung. There is diffuse increased interstitial marking seen throughout. There is lo ss of height at T9. CONCLUSION: 1. ET tube in a good but somewhat low position only 2.4 cm from the hoda. 2. Focal consolidation at the superior lateral right upper lung. This likely represents an area of c onsolidation. 3. Increased density in the retrocardiac area. This represents either an area of consolidation or at electasis. Some degree of left effusion cannot be excluded. 4. Increased interstitial markings throughout likely representing some underlying edema. Olu Herrera MD on May 18, 2017 at 19:11 Board Certified Radiologist. This report was verified electronically.
[2017-05-19] VITALS (32 sets, daily range): BP systolic 101–139; BP diastolic 67–93; PULSE 77–97; RESP 12–27; TEMP 97.7–98.8; O2SAT 98–100
[2017-05-19] MEDS: RESP: ALBUTEROL 2.5 MG/IPRATROPIUM 0.5 MG NEB (SCH) NEB ×6 (00:14→20:50)
[2017-05-19] MEDS: methylPREDNISolone SOD SUCC 125 MG/2 ML VIAL IV PUSH SCH ×3 (00:53→17:32)
[2017-05-19] MEDS: MIDAZOLAM 100 MG/100 ML INJ 100 ML IV PRN ×3 (00:53→19:29)
[2017-05-19 02:51] LABS: MAGNESIUM 1.1 MG/DL (1.5-2.5); POTASSIUM 3.3 MEQ/L (3.5-5.1)
[2017-05-19] MEDS: BUDESONIDE-FORMOTEROL 160/4.5 MCG INHALER INH SCH ×2 (05:44→17:32)
[2017-05-19] MEDS: ARTIFICIAL TEARS OPTH SOLN 15 ML BTL EACH EYE SCH ×3 (05:44→23:01)
[2017-05-19] MEDS: METOCLOPRAMIDE HCL 10 MG/2 ML VIAL IV PUSH SCH ×3 (05:44→23:00)
[2017-05-19] MEDS: metroNIDAZOLE 500 MG INJ 100 ML IV SCH ×3 (05:44→23:01)
[2017-05-19] MEDS ORDERED: fentaNYL CITRATE 250 MCG/5 ML AMP IV PUSH ONE (06:30)
[2017-05-19] MEDS ORDERED: MIDAZOLAM HCL 5 MG/5 ML VIAL IV PUSH ONE (06:30)
[2017-05-19] MEDS ORDERED: ROCURONIUM INJ 100 MG/10 ML VIAL IV ONE (06:30)
[2017-05-19] MEDS: TIOTROPIUM BROMIDE 18 MCG INH INH SCH (09:00)
[2017-05-19] MEDS: REMOVE OLD PATCH T-DERMAL SCH (09:00)
[2017-05-19] MEDS: BUMETANIDE INJ 1 MG/4 ML VIAL IV PUSH SCH (09:04)
[2017-05-19] MEDS: DOCUSATE SODIUM 50 MG/SENNA 8.6 MG TAB PO SCH ×2 (09:04→19:30)
[2017-05-19] MEDS: FOLIC ACID 1 MG TAB PO SCH (09:04)
[2017-05-19] MEDS: POTASSIUM CHLORIDE 25 MEQ EFFERVESCENT TAB PO SCH (09:04)
[2017-05-19] MEDS: LACTULOSE SYRUP 20 GM/30 ML CUP PO SCH (09:04)
[2017-05-19] MEDS: GABAPENTIN 300 MG CAP PO SCH ×3 (09:04→17:32)
[2017-05-19] MEDS: RIFAXIMIN 550 MG TAB PO SCH ×2 (09:04→19:30)
[2017-05-19] MEDS: MULTIVITAMIN TAB PO SCH (09:04)
[2017-05-19] MEDS: THIAMINE HCL 100 MG TAB PO SCH (09:05)
[2017-05-19] MEDS: SODIUM CHLORIDE 0.9% FLUSH 10 ML FLUSH IVF SCH (09:05)
[2017-05-19] MEDS: PANTOPRAZOLE SODIUM 40 MG VIAL IV PUSH SCH (09:05)
[2017-05-19] MEDS: SODIUM CHLORIDE 0.9% FLUSH 10 ML FLUSH IV FLUSH PRN (09:05)
[2017-05-19] MEDS: SODIUM CHLORIDE 0.9% FLUSH 10 ML FLUSH IV FLUSH SCH (09:05)
[2017-05-19] MEDS: NICOTINE 14 MG/24 HR PATCH T-DERMAL SCH (09:39)
[2017-05-19] MEDS: CHLORHEXIDINE 0.12% (ORAL KIT) 15 ML CUP MT SCH ×2 (09:40→19:30)
--- NOTE | 2017-05-19 10:54 | PD.PROCEDR ---
Procedure Note Procedure DX: Respiratory Failure (J96.01) OP: Flexible Bronchoscopy (66376) Procedure: Time out. Usual ICI monitoring in place, on mechanical ventilation. The scope was passed through the elbow side-port of the vent circuit.The tracheobronchial tree showed no inflammation and anatomical branching was normal. Mild purulent secretions were suction fro both lungs. The scope and orotracheal tube were then withdrawn to the level of the cricoid cartilage and used for guidance during the percutaneous tracheostomy procedure. After placement of the tracheostomy the scope was delivered through the new trach and confirmation of good position was made. Kole Rogers MD May 19, 2017 10:54
--- NOTE | 2017-05-19 10:57 | PD.PROCEDR ---
Procedure Note Procedure Percutaneous Dilation Tracheostomy Tube Placement Diagnosis: Acute recurrent respiratory failure, ventilator dependence, inability to clear secretions Indications: Acute recurrent respiratory failure, ventilator dependence, inability to clear secretions Anesthesia: Fentanyl IV, Versed, continuous Versed infusion Neuromuscular Blockade: Rocuronium Description of the Procedure: The patient was sedated and paralyzed, positioned in the supine position with a chest roll. The patient's neck was slightly extended. Landmarks were palpated and the anatomy of the anterior neck was deemed normal. A time out procedure was performed. After negative aspiration, 1% lidocaine with 1:100k epinephrine was injected subcutaneously in the midline neck. An approximately 1.5cm skin incision was made using a #15 blade. Under direct bronchoscopic guidance the endotracheal tube was retracted to a level above the level of the skin incision. At this point, a 15G introducer needle/catheter was advanced midline under negative aspiration with saline filled syringe until bubbles were seen and the needle and catheter were visualized in the lumen of the trachea. The needle was withdrawn leaving the catheter in place. J-shaped guidewire was advanced through the catheter into the lumen of the trachea. Using a modified Seldinger technique, a 14 Fr, 4.5 cm introducer dilator was used, followed by a Blue Rhino Percutaneous Tracheostomy Dilator, and finally a 28 Fr tracheostomy loading catheter with 8.0 Cuffed Shiley tracheostomy tube. The loading catheter and guidewire were removed and the tracheostomy tube was confirmed in the lumen of the trachea with direct bronchoscopic visualization through tracheostomy, and returning volumes on the ventilator. The tracheostomy was sewn to the skin with interrupted 2.0 Prolene sutures, and a tracheostomy tie was applied to the skin. There were no immediate complications. There was minimal EBL. A chest x-ray has been ordered. I personally performed procedure with Dr. Radames Rogers. Dr. Rogers also performed bronchoscopy-see separate bronchoscopy note Esteban Raines MD May 19, 2017 10:57
--- NOTE | 2017-05-19 11:00 | HHI.CCPN ---
Subjective Remarks/Hospital Course 61yM with h/o prior hepatic encephalopathy, etoh abuse, tobacco abuse, now admitted with weakness, fever, chills, worsening hypotension. called by hospitalist service overnight for clinical decline despite ivf resuscitation. Patient does complain of flank pain, but denies chest pain, abdominal pain. u/a +. started earlier on vanc/zosyn. has not voided. becoming worseningly agitated. unable to provide any additional information due to altered mental status. 04/28: Chart reviewed. Patient still quite agitated stating "I have to pee" patient has a Young catheter. Complaining of flank pain. Noted renal ultrasound negative. Currently on norepinephrine at 12 mg per minute. 04/29: Resting in bed in no acute distress. Currently on norepinephrine at 7 per minute for vasopressor support. Transfuse 2 units PRBC and 2 pack platelets overnight. Dilutional. Absolutely no signs of active bleeding. 04/30 Patient is sedated with Fentanyl and intubated. On Levophed 5 mics. Afebrile. For EGD today. 05/01 No events overnight. Sedated and intubated. On Levophed 4 mics. s/p EGD yesterday with shoed esophagitis, gastritis, food impaction in distal esophagus removed. 05/02: Afebrile. Off all vasopressors. NG tube advanced by IR yesterday. Feeding to be initiated today. Currently on fentanyl drip 05/03: Remains intubated sedated and not following commands remains on fentanyl infusion. Attempt CPAP trial if patient wakeful enough. Urine output minimal only 300 mL in 24 hours. Will give albumin and Bumex 05/04 Patient is sedated with Fentanyl and intubated. Afebrile. 05/05 Patient was self extubated last night. For possible decompressive colonoscopy today. Afebrile. 05/06 Patient is on 3L oxygen for decompressive colonoscopy today. On Precedex drip for agitation. CT abdomen/pelvis last night showed development of gaseous distention of the right and transverse colon with abrupt change in luminal dimension at the splenic flexure. There is a rectal tube in place and cannot differentiate between a focal obstruction/stricture versus decompression from the rectal tube. 05/07 Patient s/p decompressive colonoscopy last night KUB this morning showed decreased colonic distention. On 4L oxygen. 05/08 Patient was unresponsive on BIPAP this morning and was in resp distress he was subsequently intubated and placed on mechanical ventilation. CXR post intubation showed complete opacification of left hemithorax likely 2nd mucous plug 05/09 Patient is sedated with Fentanyl and intubated. Afebrile. 05/10 Patient remains sedated and intubated. Afebrile. Tolerating tube feeds 05/11: Tolerated PSV trials 3 hours today. Not tolerating tube feeding currently. KUB pending. Positive BM. Decreased urine output noted. 05/12: Lasted 1 hour on PSV trials today. Currently vomiting will be decompressed from above and below per GI today. Afebrile. Central line placed due to persistent hypotension Subjective 05/13: Permission from mother for bronchoscopy today for diagnosis left lower lobe on CAT scan of min/pelvis yesterday. Sample sent. Currently on linezolid , cefepime and Flagyl per infectious disease. 05/14: Patient remains intubated sedated, on sedation hold do not follow commands , but moving extremities. Initially intubated 04/28, self extubated 05/05, Re intubated for mucus plugging, AMS on 05/07 night. Combined vent day , mental status will not permit extubation. Copious yellow ETT secretions. 05/15: Gets agitated on CPAP. But intermittently follows commands. Good oxygen saturation. Chest x-ray shows improved aeration. Moderate secretions from ET tube but good cough. Will proceed with extubation. Remains full code 05/16: Patient was extubated yesterday but failed in about 1 hour due to stridor and tachypnea. Today off sedation mentation seems to be improved, tolerates CPAP with high settings but has bilateral crackles and coarse rhonchi. Family (son and daughter) starting in from [place]. Will be here tomorrow 05/17/17 and request the patient to be left intubated until they get here 05/17: Patient is more awake alert and appropriate in communicating even though on low-dose propofol and intubated. Waiting for family to arrive from [place] tonight. Possible weaning to extubation tomorrow 05/18: Awake alert following command on vent. Palliative care is meeting with family today. Once decision re: goals of care are made, most likely proceed with extubation 05/19: Patient was extubated yesterday and there myself under palliative care nurse practitioner Adalgisa Ellington had a detailed discussion with the patient. After talking to the family patient decided he wants to be full code and wants a tracheostomy and PEG tube done since this is his fourth reintubation. Currently intubated sedated tracheostomy today Objective Vital Signs Date Time Temp Pulse Resp B/P (MAP) Pulse Ox O2 Delivery O2 Flow Rate FiO2 05/19/17 10:30 35 05/19/17 08:11 100 05/19/17 06:00 77 05/19/17 04:00 98.8 18 126/86 (99) 05/18/17 16:00 Nasal Cannula 3.00 Intake and Output 05/19/17 05/19/17 05/19/17 07:59 15:59 23:59 Intake Total 1482 ml Output Total 2000 ml Balance -518 ml Result Diagram: 05/18/17 1000 05/19/17 0125 Imaging Last Impressions Chest X-Ray 05/13/17 0000 Signed Impressions: Service Date/Time: Saturday, May 13, 2017 13:22 - CONCLUSION: Stable chest appearance. Nasogastric tube in the distal esophagus Olu Rodriguez MD Abdomen/Pelvis CT 05/12/17 0000 Signed Impressions: Service Date/Time: Friday, May 12, 2017 17:56 - CONCLUSION: 1. Left lower lobe collapse and lingular consolidation. Endobronchial soft tissue within the left lower lobe, Mass versus mucus plugging are differential diagnostic considerations. 2. Body wall edema and ascites. 3. Nonobstructing right renal calculus. 4. Colitis with abnormal bowel wall thickening involving the ascending colon, and diffuse small bowel dilatation characteristic of an ileus. Ray Finney MD Abdomen X-Ray 05/12/17 0000 Signed Impressions: Service Date/Time: Friday, May 12, 2017 06:36 - CONCLUSION: 1. Reinsertion of the rectal tube which is coiled within the rectal vault. It may be kinked and not draining well. 2. Persistent gaseous distention of the colon although a slight decrease in the volume of gas. 3. New mildly dilated gas-filled loops of small bowel. Rogerio Harris Jr., MD Chest Ultrasound 05/08/17 0000 Signed Impressions: Service Date/Time: Monday, May 08, 2017 13:01 - CONCLUSION: 1. There is a small left pleural effusion with insufficient volume for thoracentesis at this time. Ronaldo Howell MD Abdomen Fluoroscopy 05/01/17 0000 Signed Impressions: Service Date/Time: Monday, May 01, 2017 13:13 - CONCLUSION: Uncomplicated nasogastric tube placement as above. Zain Kumar MD Lower Extremity Ultrasound 04/28/17 0000 Signed Impressions: Service Date/Time: Friday, April 28, 2017 16:47 - CONCLUSION: Negative exam with no evidence of deep venous thrombosis. Johnathon White MD Chest CT 04/28/17 0000 Signed Impressions: Service Date/Time: Friday, April 28, 2017 11:03 - CONCLUSION: 1. Small bilateral pleural effusions with atelectasis in both lower lobes. There is also a focal area of groundglass opacity in the lingula that is nonspecific but could represent an infectious or inflammatory process. 2. Moderate size hiatal hernia with dilated and fluid-filled esophagus suggesting gastroesophageal reflux. The nasogastric tube distal tip is in the distal esophagus and should ideally be advanced into the stomach. Olu Triana MD Head CT 04/27/17 1017 Signed Impressions: Service Date/Time: Thursday, April 27, 2017 11:00 - CONCLUSION: 1. No acute intracranial abnormality. 2. Complete opacification left maxillary sinus. Keagan Shipman MD Renal Ultrasound 04/27/17 0000 Signed Impressions: Service Date/Time: Thursday, April 27, 2017 23:50 - CONCLUSION: Negative renal sonogram. Rogerio Gunn MD Objective Remarks GENERAL: 61 year old male critically ill currently orotracheally intubated SKIN: Warm and dry. No rash HEAD: Normocephalic. EYES: No scleral icterus. Pupils are round 3 mm bilaterally and reactive ENT: Orotracheally intubated. moderate amount of ET tube secretions NECK: Supple, trachea midline. No JVD or lymphadenopathy. Right IJ is clean dry and intact CARDIOVASCULAR: RRR. S1, S2 no S4 without murmur RESPIRATORY: Breath sounds equal bilaterally. No accessory muscle use. Basilar crackles improved GASTROINTESTINAL: Distended. Tenderness to deep palpation. No guarding. No rigidity. Hypoactive bowel sounds appreciated throughout. MSK: No significant peripheral edema NEURO: Patient is heavily sedated in anticipation of the tracheostomy. Moves all extremities to stimulation opens eyes Date of Insertion: Apr 28, 2017 Line: Central Venous Catheter Side: Right Location: Femoral A/P Assessment and Plan Neuro/Psych: Acute encephalopathy likely secondary to EtOH withdrawal/sepsis/hyperammonemia Alcohol dependence Versed Propofol for sedation. Fentanyl infusion discontinued due to likely ileus. No sedation vacation today in anticipation of tracheostomy Thiamine, folate and multivitamin daily CT brain 04/27 revealed left maxillary sinusitis otherwise no acute intra- cranial findings Patient does have a history of EtOH withdrawal seizures. Seizure precautions CV: Severe sepsis -improving Lactic acidosis- cleared Monitor HR and BP keep MAP>65mmHg Norepinephrine as needed to keep map above 65 On scheduled Bumex to optimize fluid status, achieve negative fluid balance Resp: Acute respiratory failure- intubated 04/28, self extubated 05/05 reintubated 05/08. Extubated again on 05/15 and 05/18 with re intubation COPD exacerbation Stridor Ongoing tobaccoism Failed extubation 05/15/17 due to stridor and tachypnea. extubated 05/18/17 to involve patient in medical decision making Patient indicated that he wants full code and tracheostomy and PEG tube placement. Tracheostomy placed today Decadron 4 mg 4 doses completed. Currently on IV Solu-Medrol since 05/18/17 Due to possible mucous plugging left lower lobe on CAT scan 05/12. s/p bronchoscopy 05/13 with removal of mucous plug. Continue with vent support ACV 16/550/5/35 keep sat >92%. Albuterol/ipratropium aerosols every 6 hours and albuterol aerosols every 2 hours. PRN ICU vent bundle. SBT resume on 05/20/17 s/p Bronch with BAL 05/08: Thick secretions/mucous plug left main stem bronchus suctioned to clear CXR post bronch showed improved aeration left lung. Nicotine patch 14 mg daily. GI: Hyperammonemia Colonic Ileus Elevated AST Hypoalbuminemia- mild protein calorie malnutrition Hiatal hernia Sigmoid diverticulosis Hepatic steatosis Nothing by mouth for recurrent ileus Were discussed with GI regarding PEG versus GJ tube CT abdomen/pelvis 05/12 revealed thickening ascending colon/small bowel dilatation/ileus. KUB 05/18: Worsening ileus KUB / Improving bowel distention KUB /: Mild improvements in bowel gas pattern. KUB 10/2: Decreased colonic distention s/p decompressive colonoscopy 05/06: Stool throughout the colon, Decompression colon tube was placed 05/05 CT abdomen/pelvis: showed development of gaseous distention of the right and transverse colon with abrupt change in luminal dimension at the splenic flexure. There is a rectal tube in place and cannot differentiate between a focal obstruction/stricture versus decompression from the rectal tube. KUB abdomen 05/04 showed severe ileus, cecum dilated to 10 cm s/p EGD 04/30: Esophagitis, gastritis, food impaction in distal esophagus removed. Pantoprazole for GI prophylaxis. Docusate sodium/senna 1 tablet twice a day for bowel regimen. Continue Reglan : Right kidney nonobstructing stone 3 mm Renal ultrasound revealed no hydronephrosis Monitor renal function, I/O's, electrolytes replacement per protocol. IV Bumex 1 mg daily UOI 2L in 24 hours Endo: Sliding-scale insulin to maintain euglycemia with Accu-Cheks every 6 hours with low regimen with Novolin R TSH: 3.14 04/28 Heme: Leukocytosis Macrocytic anemia Patient was transfused 2 pack platelets and 2 PRBC 04/28. Follow CBC daily. Monitor trends. ID: Possible C. difficile colitis Aspiration pneumonia, E Coli in sputum Per infectious disease on cefepime and metronidazole. Linezolid DCd 05/16/17 s/p Zosyn 04/27- onitor for signs of infections ( Fever, WBC) Afebrile, Follow up on BAL results 05/09 and 05/13- NGTD. Sputum E Coli-S to cefepime Pertinent cultures Blood cultures 2 -04/27 -no growth to date Urine culture - 04/27 -50 - 100,000 mixed gram-positive Sputum 04/28- normal resp andrea Urine pneumococcal and Legionella antigens negative MSK: PT evaluate and treat Access -RIJ CVL placed 05/12 Prophylaxis - GI - pantoprazole - DVT - SCD/ Heparin SQ , CCT 30 Excluding procedure Palliative care following to address goals of care. Full code now. s/p trach today Esteban Raines MD May 19, 2017 11:00
--- NOTE | 2017-05-19 11:28 | RADRPT ---
EXAM DATE/TIME: 05/19/2017 10:56 [facility] COMPARISON: CHEST SINGLE AP, May 18, 2017, 18:10. INDICATIONS : Post tracheostomy MEDICAL HISTORY : Chronic obstructive pulmonary disease. SURGICAL HISTORY : None. ENCOUNTER: Initial ACUITY: 1 day PAIN SCORE: Non-responsive. LOCATION: Bilateral chest FINDINGS: Status post placement of a tracheostomy tube which appears to be in good position. There is no eviden ce of pneumothorax. A right-sided central and remains in place. There continues to be scattered pulmo nary infiltrates without significant change. The bony structures are stable. CONCLUSION: Good position of tracheostomy tube. No pneumothorax. Curt Mullen MD on May 19, 2017 at 11:27 Board Certified Radiologist. This report was verified electronically.
[2017-05-19] MEDS: CEFEPIME INJ 2,000 MG in SODIUM CHLORIDE 0.9% INJ 100 ML IV SCH ×2 (12:21→23:14)
[2017-05-19] MEDS: ALBUMIN HUMAN 5% 25 GM/500 ML BOTTLE IV SCH (14:14)
--- NOTE | 2017-05-19 18:12 | HHI.GIFU ---
Subjective Remarks Sedated on vent. Nurse reports he had a large bowel movement last night, small amount in flexiseal today. No vomiting. (Kathrin Carreno) Objective Vitals I&O Vital Signs Date Time Temp Pulse Resp B/P (MAP) Pulse Ox O2 Delivery O2 Flow Rate FiO2 05/19/17 16:00 50 05/19/17 15:32 99 40 05/19/17 14:00 85 05/19/17 13:00 89 18 117/81 (93) 99 05/19/17 12:30 91 19 116/82 (93) 98 05/19/17 12:00 98.3 85 19 116/79 (91) 98 05/19/17 12:00 50 05/19/17 12:00 85 05/19/17 11:45 99 50 05/19/17 11:00 89 17 123/76 (92) 99 05/19/17 10:30 35 05/19/17 10:15 100 100 05/19/17 10:00 84 05/19/17 10:00 84 13 118/84 (95) 100 05/19/17 09:00 86 19 111/79 (90) 100 05/19/17 08:11 100 35 05/19/17 08:00 97.7 87 12 114/75 (88) 100 05/19/17 08:00 35 05/19/17 08:00 87 05/19/17 07:00 97 27 101/67 (78) 100 05/19/17 06:00 77 05/19/17 04:00 98.8 80 18 126/86 (99) 100 05/19/17 04:00 80 05/19/17 03:33 100 35 05/19/17 02:00 86 05/19/17 01:32 99 35 05/19/17 00:00 98.4 83 16 139/93 (108) 100 05/19/17 00:00 83 05/18/17 22:27 100 35 05/18/17 22:00 82 05/18/17 20:03 100 35 05/18/17 20:00 98.7 72 18 105/69 (81) 99 05/18/17 20:00 72 05/18/17 20:00 72 05/18/17 19:00 81 I/O 10/05/18/17 05/18/17 05/19/17 05/19/17 05/19/17 07:00 15:00 23:00 07:00 15:00 23:00 Intake Total 1450 ml 100 ml 685 ml 100 ml 1609 ml Output Total 850 ml 1400 ml 2000 ml Balance 600 ml 100 ml -715 ml 100 ml -391 ml IV Total 542 ml 100 ml 200 ml 100 ml 1049 ml Tube Feeding 408 ml 125 ml 0 ml Albumin 500 ml 500 ml Other 360 ml 60 ml Output Urine Total 850 ml 1400 ml 2000 ml # Bowel Movements 0 1 3 Laboratory Laboratory Tests Test 05/19/17 01:25 Potassium Level 3.3 Magnesium Level 1.1 Date/Time Source Procedure Growth Status 04/27/17 14:15 Blood Peripheral Aerobic Blood Culture - Final NO GROWTH IN 5 DAYS Complete 04/27/17 14:15 Blood Peripheral Anaerobic Blood Culture - Final NO GROWTH IN 5 DAYS Complete 05/13/17 12:45 Bronchial Washings Left Upper Lobe Fungal Smear Pending Received 05/13/17 12:45 Bronchial Washings Left Upper Lobe Fungal Culture Pending Received 05/06/17 07:50 Urine Catheterized Urine Urine Culture - Final NO GROWTH IN 48 HOURS. Complete Imaging Last Impressions Chest X-Ray 05/19/17 0000 Signed Impressions: Service Date/Time: Friday, May 19, 2017 10:56 - CONCLUSION: Good position of tracheostomy tube. No pneumothorax. Curt Mullen MD Abdomen X-Ray 05/18/17 0000 Signed Impressions: Service Date/Time: Thursday, May 18, 2017 09:30 - CONCLUSION: Probably ileus , progressed from 05/14/17. Rogerio Harris Jr., MD Abdomen/Pelvis CT 05/12/17 0000 Signed Impressions: Service Date/Time: Friday, May 12, 2017 17:56 - CONCLUSION: 1. Left lower lobe collapse and lingular consolidation. Endobronchial soft tissue within the left lower lobe, Mass versus mucus plugging are differential diagnostic considerations. 2. Body wall edema and ascites. 3. Nonobstructing right renal calculus. 4. Colitis with abnormal bowel wall thickening involving the ascending colon, and diffuse small bowel dilatation characteristic of an ileus. Ray Finney MD Chest Ultrasound 05/08/17 0000 Signed Impressions: Service Date/Time: Monday, May 08, 2017 13:01 - CONCLUSION: 1. There is a small left pleural effusion with insufficient volume for thoracentesis at this time. Ronaldo Howell MD Abdomen Fluoroscopy 05/01/17 0000 Signed Impressions: Service Date/Time: Monday, May 01, 2017 13:13 - CONCLUSION: Uncomplicated nasogastric tube placement as above. Zain Kumar MD Lower Extremity Ultrasound 04/28/17 0000 Signed Impressions: Service Date/Time: Friday, April 28, 2017 16:47 - CONCLUSION: Negative exam with no evidence of deep venous thrombosis. Johnathon White MD Chest CT 04/28/17 0000 Signed Impressions: Service Date/Time: Friday, April 28, 2017 11:03 - CONCLUSION: 1. Small bilateral pleural effusions with atelectasis in both lower lobes. There is also a focal area of groundglass opacity in the lingula that is nonspecific but could represent an infectious or inflammatory process. 2. Moderate size hiatal hernia with dilated and fluid-filled esophagus suggesting gastroesophageal reflux. The nasogastric tube distal tip is in the distal esophagus and should ideally be advanced into the stomach. Olu Triana MD Head CT 04/27/17 1017 Signed Impressions: Service Date/Time: Thursday, April 27, 2017 11:00 - CONCLUSION: 1. No acute intracranial abnormality. 2. Complete opacification left maxillary sinus. Keagan Shipman MD Renal Ultrasound 04/27/17 0000 Signed Impressions: Service Date/Time: Thursday, April 27, 2017 23:50 - CONCLUSION: Negative renal sonogram. Rogerio Gunn MD Physical Exam HEENT: Normocephalic CHEST: Resp even, mildly labored. Course breath sounds. Trach to vent CARDIAC: RRR ABDOMEN: Soft, mildly distended, nontender, BS active. Flexiseal with small amount of liquid stool EXTREMITIES: Generalized edema OPTIONS ADVISOR: Sedated on vent (Kathrin Carreno) Assessment and Plan Plan ASSESSMENT - Colonic/small bowel ileus. CT Scan abdomen and pelvis with IV contrast ()---->left lower lobe collapse and lingular consolidation. endobronchial sot tissue within left lower lobe, mass versus mucus plugging are differential diagnostic considerations. Body wall edema and ascites, nonobstructing renal calculus, colitis with abnormal bowel wall thickening involving the ascending colon, and diffuse small bowel dilatation suggesting ileus . S/P 2 SSE. S/P Relistor S/P Decompressive colonoscopy (05/06/17)----> stool throughout the colon, I did not see any masses, visualization was compromised with stool, decompression colon tube was placed. S/P Decompressive colonoscopy (05/12/17)---> Diverticulosis sigmoid poor prep, superficial ulcerations in ascending colon and cecum-biopsy with, pseudomembranes-consistent with cdiff. Pathology fragments of colonic mucosa and fragments of acute inflammatory exudate with ghost outlines of colonic mucosa, suggestive of ischemia. This could be seen in either pseudomembranous colitis or in ischemic colitis. Clinical correlation is suggested. Stools negative for cdiff pcr. Pt had improved and therefore we had signed off, but today we were reconsulted for worsening distention. KUB (05/18/17)--- > Scattered gas filled with nondilated loops of large and small bowel suggesting ileus. TF on hold. No vomiting. Had a large bowel movement last night, small amount today. Less abdominal distention today. Cont. Miralax, Lactulose, Flagyl. Will get rpt kub in am to follow up on ileus. If improved, possible peg tube placement on Sunday. - Colitis/pseudomembranes. CDiff vs. ischemic colitis. Pathology as above. Stool was negative for CDiff pcr. Flagyl - Anemia, macrocytic. S/P EGD (04/30/17)---> Martinez esophagus, Esophagitis, Gastritis, Foreign body in the distal esophagus. Pathology reactive gastropathy. S/P 2 units RBC, 2 units Platelets. Vitamin B12 1298. PPI. HH 7.7/23.0 - Martinez's Esophagus, Esophagitis, Gastritis. Pathology reactive gastropathy. PPI - Foreign body in distal esophagus, s/p EGD. - Elevated ammonia, acute encephalopathy. Ammonia 45. Lactulose, Xifaxan. - Elevated bilirubin. CT as above. History of ETOH abuse, drinks 1/5 of vodka daily. Hypoalbuminemia with albumin 2.1. Mild coagulopathy. Suspect liver cirrhosis, likely secondary to alcohol, fatty liver disease. LFTs are stable. Last LFT T. Bili 0.6, AST 18, ALT 11, Alk Phosph 79 - Thrombocytopenia. S/P 2 platelet transfusion. - Sepsis, unclear source. Urine negative for legionella, streptococcus, bcx neg , sputum cx with light growth normal respiratory andrea. CT reveals possible pneumonia. Colonoscopy---> pseudomembranes consistent with cdiff vs. ischemia. Flagyl, Cefepime - Respiratory failure, COPD. S/P Trach earlier today. PLAN - Jevity 1.5 at 20cc/hr - Cont. Flagyl - Cont. Lactulose - Cont. Xifaxan - Cont. PPI - Monitor labs - KUB in am - Supportive care - Abdominal distention has improved and the nurse reports that he had a large bowel movement yesterday. Will start TF and recheck KUB in am, if ileus continues to improve, will consider PEG tube placement early next week - Patient seen and examined by Dr. Loving and myself and this note is written on his behalf. (Kathrin Carreno) Physician Comments Seen and examined with SIMI, illeus improving. EGD/Peg next week. (Harrison Loving MD) Kathrin Carreno May 19, 2017 18:12 Harrison Loving MD May 20, 2017 14:22
[2017-05-19] MEDS: MAGNESIUM SULFATE INJ 2 GM in SODIUM CHLORIDE 0.9% INJ 96 ML IV PRN (21:05)
[2017-05-19] MEDS ORDERED: ALTEPLASE RECOMBINANT 2 MG VIAL INTRACATH PRN (21:45)
[2017-05-20] VITALS (23 sets, daily range): BP systolic 117–134; BP diastolic 74–96; PULSE 82–107; RESP 16–32; TEMP 97.5–99.1; O2SAT 97–100
[2017-05-20] MEDS: RESP: ALBUTEROL 2.5 MG/IPRATROPIUM 0.5 MG NEB (SCH) NEB ×6 (00:30→20:51)
[2017-05-20] MEDS: methylPREDNISolone SOD SUCC 125 MG/2 ML VIAL IV PUSH SCH ×2 (01:41→09:01)
[2017-05-20] MEDS: ALBUMIN HUMAN 5% 25 GM/500 ML BOTTLE IV SCH ×2 (01:41→13:11)
[2017-05-20] MEDS: MAGNESIUM SULFATE INJ 2 GM in SODIUM CHLORIDE 0.9% INJ 96 ML IV PRN (03:33)
--- NOTE | 2017-05-20 04:47 | RADRPT ---
EXAM DATE/TIME: 05/20/2017 03:20 [facility] COMPARISON: ABDOMEN KUB ONLY, May 18, 2017, 9:30. INDICATIONS : Abdominal distention. MEDICAL HISTORY : Chronic obstructive pulmonary disease. Seizures SURGICAL HISTORY : None. ENCOUNTER: Subsequent ACUITY: 3 weeks PAIN SCORE: Non-responsive. LOCATION: Bilateral Abdomen FINDINGS: Supine view of the abdomen was performed. There is an NG tube looped in the stomach. There is dilata tion of the transverse colon measuring 8 cm. Small bowel dilatation is not seen. There is hazy densit y throughout the abdomen. Increased density at the left lung base with silhouetting of the left hemid iaphragm. CONCLUSION: 1. Dilatation of the transverse colon. Significant air filled small bowel is not seen. On the prior e xam, the small bowel was prominent. 2. Hazy densities in the abdomen which may suggest ascites. 3. Left lower lobe consolidation or atelectasis. Olu Herrera MD on May 20, 2017 at 4:43 Board Certified Radiologist. This report was verified electronically.
[2017-05-20] MEDS: METOCLOPRAMIDE HCL 10 MG/2 ML VIAL IV PUSH SCH ×3 (05:23→21:53)
[2017-05-20] MEDS: BUDESONIDE-FORMOTEROL 160/4.5 MCG INHALER INH SCH ×2 (05:23→17:01)
[2017-05-20] MEDS: ARTIFICIAL TEARS OPTH SOLN 15 ML BTL EACH EYE SCH ×2 (05:24→13:15)
[2017-05-20] MEDS: MIDAZOLAM 100 MG/100 ML INJ 100 ML IV PRN (05:29)
[2017-05-20] MEDS: metroNIDAZOLE 500 MG INJ 100 ML IV SCH ×3 (06:36→21:53)
[2017-05-20] MEDS: LACTULOSE SYRUP 20 GM/30 ML CUP PO SCH ×2 (08:55→21:53)
[2017-05-20] MEDS: GABAPENTIN 300 MG CAP PO SCH ×3 (08:55→17:00)
[2017-05-20] MEDS: THIAMINE HCL 100 MG TAB PO SCH (08:56)
[2017-05-20] MEDS: POTASSIUM CHLORIDE 25 MEQ EFFERVESCENT TAB PO SCH (08:56)
[2017-05-20] MEDS: RIFAXIMIN 550 MG TAB PO SCH ×2 (08:56→21:53)
[2017-05-20] MEDS: PANTOPRAZOLE SODIUM 40 MG VIAL IV PUSH SCH (08:57)
[2017-05-20] MEDS: TIOTROPIUM BROMIDE 18 MCG INH INH SCH (09:00)
[2017-05-20] MEDS: REMOVE OLD PATCH T-DERMAL SCH (09:00)
[2017-05-20] MEDS: SODIUM CHLORIDE 0.9% FLUSH 10 ML FLUSH IV FLUSH SCH (09:01)
[2017-05-20] MEDS: MULTIVITAMIN TAB PO SCH (09:01)
[2017-05-20] MEDS: DOCUSATE SODIUM 50 MG/SENNA 8.6 MG TAB PO SCH ×2 (09:01→21:53)
[2017-05-20] MEDS: NICOTINE 14 MG/24 HR PATCH T-DERMAL SCH (09:02)
[2017-05-20] MEDS: BUMETANIDE INJ 1 MG/4 ML VIAL IV PUSH SCH (09:03)
[2017-05-20] MEDS: CHLORHEXIDINE 0.12% (ORAL KIT) 15 ML CUP MT SCH (09:03)
[2017-05-20] MEDS: SODIUM CHLORIDE 0.9% FLUSH 10 ML FLUSH IVF SCH (09:04)
[2017-05-20] MEDS: FOLIC ACID 1 MG TAB PO SCH (09:11)
--- NOTE | 2017-05-20 09:34 | HHI.CCPN ---
Subjective Remarks/Hospital Course 61yM with h/o prior hepatic encephalopathy, etoh abuse, tobacco abuse, now admitted with weakness, fever, chills, worsening hypotension. called by hospitalist service overnight for clinical decline despite ivf resuscitation. Patient does complain of flank pain, but denies chest pain, abdominal pain. u/a +. started earlier on vanc/zosyn. has not voided. becoming worseningly agitated. unable to provide any additional information due to altered mental status. 04/28: Chart reviewed. Patient still quite agitated stating "I have to pee" patient has a Young catheter. Complaining of flank pain. Noted renal ultrasound negative. Currently on norepinephrine at 12 mg per minute. 04/29: Resting in bed in no acute distress. Currently on norepinephrine at 7 per minute for vasopressor support. Transfuse 2 units PRBC and 2 pack platelets overnight. Dilutional. Absolutely no signs of active bleeding. 04/30 Patient is sedated with Fentanyl and intubated. On Levophed 5 mics. Afebrile. For EGD today. 05/01 No events overnight. Sedated and intubated. On Levophed 4 mics. s/p EGD yesterday with shoed esophagitis, gastritis, food impaction in distal esophagus removed. 05/02: Afebrile. Off all vasopressors. NG tube advanced by IR yesterday. Feeding to be initiated today. Currently on fentanyl drip 05/03: Remains intubated sedated and not following commands remains on fentanyl infusion. Attempt CPAP trial if patient wakeful enough. Urine output minimal only 300 mL in 24 hours. Will give albumin and Bumex 05/04 Patient is sedated with Fentanyl and intubated. Afebrile. 05/05 Patient was self extubated last night. For possible decompressive colonoscopy today. Afebrile. 05/06 Patient is on 3L oxygen for decompressive colonoscopy today. On Precedex drip for agitation. CT abdomen/pelvis last night showed development of gaseous distention of the right and transverse colon with abrupt change in luminal dimension at the splenic flexure. There is a rectal tube in place and cannot differentiate between a focal obstruction/stricture versus decompression from the rectal tube. 05/07 Patient s/p decompressive colonoscopy last night KUB this morning showed decreased colonic distention. On 4L oxygen. 05/08 Patient was unresponsive on BIPAP this morning and was in resp distress he was subsequently intubated and placed on mechanical ventilation. CXR post intubation showed complete opacification of left hemithorax likely 2nd mucous plug 05/09 Patient is sedated with Fentanyl and intubated. Afebrile. 05/10 Patient remains sedated and intubated. Afebrile. Tolerating tube feeds 05/11: Tolerated PSV trials 3 hours today. Not tolerating tube feeding currently. KUB pending. Positive BM. Decreased urine output noted. 05/12: Lasted 1 hour on PSV trials today. Currently vomiting will be decompressed from above and below per GI today. Afebrile. Central line placed due to persistent hypotension 05/13: Permission from mother for bronchoscopy today for diagnosis left lower lobe on CAT scan of min/pelvis yesterday. Sample sent. Currently on linezolid , cefepime and Flagyl per infectious disease. 05/14: Patient remains intubated sedated, on sedation hold do not follow commands , but moving extremities. Initially intubated 04/28, self extubated 05/05, Re intubated for mucus plugging, AMS on 05/07 night. Combined vent day , mental status will not permit extubation. Copious yellow ETT secretions. 05/15: Gets agitated on CPAP. But intermittently follows commands. Good oxygen saturation. Chest x-ray shows improved aeration. Moderate secretions from ET tube but good cough. Will proceed with extubation. Remains full code 05/16: Patient was extubated yesterday but failed in about 1 hour due to stridor and tachypnea. Today off sedation mentation seems to be improved, tolerates CPAP with high settings but has bilateral crackles and coarse rhonchi. Family (son and daughter) starting in from [place]. Will be here tomorrow 05/17/17 and request the patient to be left intubated until they get here 05/17: Patient is more awake alert and appropriate in communicating even though on low-dose propofol and intubated. Waiting for family to arrive from [place] tonight. Possible weaning to extubation tomorrow 05/18: Awake alert following command on vent. Palliative care is meeting with family today. Once decision re: goals of care are made, most likely proceed with extubation 05/19: Patient was extubated yesterday and there myself under palliative care nurse practitioner Adalgisa Ellington had a detailed discussion with the patient. After talking to the family patient decided he wants to be full code and wants a tracheostomy and PEG tube done since this is his fourth reintubation. Currently intubated sedated tracheostomy today 05/20: Status post tracheostomy yesterday 05/19/17. Based on CPAP tolerating well now. We'll attempt T piece today. Discontinue Versed use propofol as needed. Labs pending Objective Vital Signs Date Time Temp Pulse Resp B/P (MAP) Pulse Ox O2 Delivery O2 Flow Rate FiO2 05/20/17 08:00 40 05/20/17 07:24 99 05/20/17 06:00 86 05/20/17 04:00 97.9 19 122/84 (97) 05/18/17 16:00 Nasal Cannula 3.00 Intake and Output 05/20/17 05/20/17 05/21/17 08:00 16:00 00:00 Intake Total 1885 ml Output Total 470 ml Balance 1415 ml Result Diagram: 05/18/17 1000 05/19/17 0125 Imaging Last Impressions Chest X-Ray 05/13/17 0000 Signed Impressions: Service Date/Time: Saturday, May 13, 2017 13:22 - CONCLUSION: Stable chest appearance. Nasogastric tube in the distal esophagus Olu Rodriguez MD Abdomen/Pelvis CT 05/12/17 0000 Signed Impressions: Service Date/Time: Friday, May 12, 2017 17:56 - CONCLUSION: 1. Left lower lobe collapse and lingular consolidation. Endobronchial soft tissue within the left lower lobe, Mass versus mucus plugging are differential diagnostic considerations. 2. Body wall edema and ascites. 3. Nonobstructing right renal calculus. 4. Colitis with abnormal bowel wall thickening involving the ascending colon, and diffuse small bowel dilatation characteristic of an ileus. Ray Finney MD Abdomen X-Ray 05/12/17 0000 Signed Impressions: Service Date/Time: Friday, May 12, 2017 06:36 - CONCLUSION: 1. Reinsertion of the rectal tube which is coiled within the rectal vault. It may be kinked and not draining well. 2. Persistent gaseous distention of the colon although a slight decrease in the volume of gas. 3. New mildly dilated gas-filled loops of small bowel. Rogerio Harris Jr., MD Chest Ultrasound 05/08/17 0000 Signed Impressions: Service Date/Time: Monday, May 08, 2017 13:01 - CONCLUSION: 1. There is a small left pleural effusion with insufficient volume for thoracentesis at this time. Ronaldo Howell MD Abdomen Fluoroscopy 05/01/17 0000 Signed Impressions: Service Date/Time: Monday, May 01, 2017 13:13 - CONCLUSION: Uncomplicated nasogastric tube placement as above. Zain Kumar MD Lower Extremity Ultrasound 04/28/17 0000 Signed Impressions: Service Date/Time: Friday, April 28, 2017 16:47 - CONCLUSION: Negative exam with no evidence of deep venous thrombosis. Johnathon Whtie MD Chest CT 04/28/17 0000 Signed Impressions: Service Date/Time: Friday, April 28, 2017 11:03 - CONCLUSION: 1. Small bilateral pleural effusions with atelectasis in both lower lobes. There is also a focal area of groundglass opacity in the lingula that is nonspecific but could represent an infectious or inflammatory process. 2. Moderate size hiatal hernia with dilated and fluid-filled esophagus suggesting gastroesophageal reflux. The nasogastric tube distal tip is in the distal esophagus and should ideally be advanced into the stomach. Olu Triana MD Head CT 04/27/17 1017 Signed Impressions: Service Date/Time: Thursday, April 27, 2017 11:00 - CONCLUSION: 1. No acute intracranial abnormality. 2. Complete opacification left maxillary sinus. Keagan Shipman MD Renal Ultrasound 04/27/17 0000 Signed Impressions: Service Date/Time: Thursday, April 27, 2017 23:50 - CONCLUSION: Negative renal sonogram. Rogerio Gunn MD Objective Remarks GENERAL: 61 year old male critically ill on Versed gtt SKIN: Warm and dry. No rash HEAD: Normocephalic. EYES: No scleral icterus. Pupils are round 3 mm bilaterally and reactive ENT: Oral cavity is dry NECK: Supple, trachea midline. No JVD or lymphadenopathy. Right IJ is clean dry and intact. New trach in place with no significant bleeding CARDIOVASCULAR: RRR. S1, S2 no S4 without murmur RESPIRATORY: Breath sounds equal bilaterally. No accessory muscle use. Basilar crackles improved GASTROINTESTINAL: No guarding. No rigidity. Hypoactive bowel sounds appreciated throughout. MSK: No significant peripheral edema NEURO: Sedated with Versed but wakes up easily follows commands. Moves all extremities Date of Insertion: Apr 28, 2017 Line: Central Venous Catheter Side: Right Location: Femoral A/P Assessment and Plan Neuro/Psych: Acute encephalopathy likely secondary to EtOH withdrawal/sepsis/hyperammonemia Alcohol dependence Propofol for sedation. DC Versed gtt Fentanyl infusion discontinued due to likely ileus. RASS -1. Daily sedation vacation Thiamine, folate and multivitamin daily CT brain 04/27 revealed left maxillary sinusitis otherwise no acute intra- cranial findings Patient does have a history of EtOH withdrawal seizures. Seizure precautions CV: Severe sepsis -improving Lactic acidosis- cleared Monitor HR and BP keep MAP>65mmHg On scheduled Bumex to achieve negative fluid balance Resp: Acute respiratory failure- intubated 04/28, self extubated 05/05 reintubated 05/08. Extubated again on 05/15 and 05/18 with re intubation s/p Perc Trach 05/19/17 COPD exacerbation Ongoing tobaccoism s/p Perc Trach 05/19/17. (Olu/Ken) Patient wanted full code and tracheostomy and PEG tube placement. Decadron 4 mg 4 doses completed. Currently on IV Solu-Medrol since 05/18/17 reduce to 40 q8. Add inhaled budesonide Albuterol/ipratropium aerosols every 6 hours and albuterol aerosols every 2 hours. PRN PRVC, ICU vent bundle. SBT 05/20/17, attempt TP 2 hours s/p Bronch with BAL 05/08: Thick secretions/mucous plug left main stem bronchus suctioned to clear CXR post bronch showed improved aeration left lung. Mucous plugging left lower lobe on CAT scan 05/12. s/p bronchoscopy 05/13 with removal of mucous plug. Nicotine patch 14 mg daily. GI: Hyperammonemia Colonic Ileus Elevated AST Hypoalbuminemia- mild protein calorie malnutrition Hiatal hernia Sigmoid diverticulosis Hepatic steatosis Ileus improving clinically and on KUB, tube feeds restarted by GI PEG versus GJ tube this week CT abdomen/pelvis 05/12 revealed thickening ascending colon/small bowel dilatation/ileus. KUB 05/20 interval improvement in ileus KUB 05/18: Worsening ileus KUB 05/14 Improving bowel distention KUB 10/4: Mild improvements in bowel gas pattern. KUB 05/07: Decreased colonic distention s/p decompressive colonoscopy 05/06: Stool throughout the colon, Decompression colon tube was placed 05/05 CT abdomen/pelvis: Gaseous distention of the right and transverse colon with abrupt change in luminal dimension at the splenic flexure. Rectal tube in place and cannot differentiate between a focal obstruction/stricture versus decompression from the rectal tube. KUB abdomen 05/04 showed severe ileus, cecum dilated to 10 cm s/p EGD 04/30: Esophagitis, gastritis, food impaction in distal esophagus removed. Pantoprazole for GI prophylaxis. Docusate sodium/senna 1 tablet twice a day for bowel regimen. Continue Reglan : Right kidney nonobstructing stone 3 mm Renal ultrasound revealed no hydronephrosis Monitor renal function, I/O's, electrolytes replacement per protocol. IV Bumex 2 mg daily UOI 4L in 24 hours Endo: Hypokalemia hypomagnesemia Sliding-scale insulin to maintain euglycemia with Accu-Cheks every 6 hours with low regimen with Novolin R TSH: 3.14 04/28 Electrolyte Replacement per protocol Heme: Leukocytosis Macrocytic anemia Patient was transfused 2 pack platelets and 2 PRBC 04/28. Follow CBC daily. Monitor trends. ID: Possible C. difficile colitis Aspiration pneumonia, E Coli in sputum Per infectious disease on cefepime and metronidazole. Linezolid DCd 05/16/17 s/p Zosyn 04/27- onitor for signs of infections ( Fever, WBC) Afebrile, Follow up on BAL results 05/09 and 05/13- NGTD. Sputum E Coli-S to cefepime Pertinent cultures Blood cultures 2 -04/27 -no growth to date Urine culture - 04/27 -50 - 100,000 mixed gram-positive Sputum 04/28- normal resp andrea Urine pneumococcal and Legionella antigens negative MSK: PT evaluate and treat Access -RIJ CVL placed 05/12 Prophylaxis - GI - pantoprazole - DVT - SCD/ Heparin SQ , Level 3 Palliative care following to address goals of care. Full code now. s/p trach Esteban Raines MD May 20, 2017 09:34
[2017-05-20 09:44] LABS: HEMATOCRIT 24.6 % (39.0-51.0); MEAN CELL VOLUME 104.3 FL (80.0-100.0); MEAN CORPUSCULAR HEMOGLOBIN 33.8 PG (27.0-34.0); RED BLOOD COUNT 2.36 MIL/MM3 (4.50-5.90); WHITE BLOOD COUNT 15.8 TH/MM3 (4.0-11.0)
[2017-05-20 09:45] LABS: BASOPHIL % 0.1 % (0.0-2.0); HEMO FLAGS DIFF FINAL; LYMPH % 4.1 % (9.0-44.0); LYMPHOCYTE # 0.7 TH/MM3 (1.0-4.8); MEAN CORPUSCULAR HGB CONC 32.5 % (32.0-36.0); MONO % 7.6 % (0.0-8.0); NEUT % 88.2 % (16.0-70.0); PLATELET COUNT 198 TH/MM3 (150-450); RED CELL DISTRIBUTION WIDTH 24.1 % (11.6-17.2)
--- NOTE | 2017-05-20 10:05 | HHI.GIFU ---
Subjective Remarks Resting in bed, sedated on vent in no distress. TF going at 20cc/hr. Pt is more distended today. Only small amount of liquid in flexiseal- looks more clear ? flush. (Kathrin Carreno) Objective Vitals I&O Vital Signs Date Time Temp Pulse Resp B/P (MAP) Pulse Ox O2 Delivery O2 Flow Rate FiO2 05/20/17 08:00 40 05/20/17 07:24 40 05/20/17 07:24 99 40 05/20/17 06:00 86 05/20/17 04:23 98 40 05/20/17 04:00 50 05/20/17 04:00 97.9 82 19 122/84 (97) 97 05/20/17 04:00 86 05/20/17 02:00 89 05/20/17 00:31 100 40 05/20/17 00:00 50 05/20/17 00:00 97.5 84 17 128/83 (98) 100 05/20/17 00:00 84 05/19/17 22:00 82 05/19/17 20:53 100 40 05/19/17 20:00 79 05/19/17 20:00 50 05/19/17 20:00 97.7 84 17 128/83 (98) 100 05/19/17 18:30 80 16 117/83 (94) 99 05/19/17 18:00 82 05/19/17 18:00 82 17 118/80 (93) 99 05/19/17 17:30 82 16 113/80 (91) 98 05/19/17 17:00 83 17 113/80 (91) 99 05/19/17 16:30 86 17 121/79 (93) 98 05/19/17 16:00 98.7 85 17 115/79 (91) 98 05/19/17 16:00 50 05/19/17 16:00 85 05/19/17 15:32 99 40 05/19/17 15:30 84 16 120/84 (96) 100 05/19/17 15:00 84 17 123/83 (96) 100 05/19/17 14:30 84 17 117/82 (94) 100 05/19/17 14:05 84 17 111/82 (92) 100 05/19/17 14:00 85 05/19/17 14:00 85 17 112/80 (91) 100 05/19/17 13:00 89 18 117/81 (93) 99 05/19/17 12:30 91 19 116/82 (93) 98 05/19/17 12:00 98.3 85 19 116/79 (91) 98 05/19/17 12:00 50 05/19/17 12:00 85 05/19/17 11:45 99 50 05/19/17 11:00 89 17 123/76 (92) 99 05/19/17 10:30 35 05/19/17 10:15 100 100 05/19/17 10:00 84 05/19/17 10:00 84 13 118/84 (95) 100 I/O 05/19/17 05/19/17 05/19/17 05/20/17 05/20/17 05/20/17 07:00 15:00 23:00 07:00 15:00 23:00 Intake Total 100 ml 1609 ml 1647 ml 2485 ml 15 ml Output Total 2000 ml 1550 ml 470 ml Balance 100 ml -391 ml 97 ml 2015 ml 15 ml IV Total 100 ml 1049 ml 1027 ml 2225 ml 15 ml Tube Feeding 0 ml 120 ml 220 ml Albumin 500 ml 500 ml Tube Irrigant 40 ml Other 60 ml Output Urine Total 2000 ml 1550 ml 450 ml Stool Total 20 ml # Bowel Movements 3 Laboratory Laboratory Tests Test 05/20/17 09:15 White Blood Count 15.8 Red Blood Count 2.36 Hemoglobin 8.0 Hematocrit 24.6 Mean Corpuscular Volume 104.3 Mean Corpuscular Hemoglobin 33.8 Mean Corpuscular Hemoglobin Concent 32.5 Red Cell Distribution Width 24.1 Platelet Count 198 Mean Platelet Volume 8.8 Neutrophils (%) (Auto) 88.2 Lymphocytes (%) (Auto) 4.1 Monocytes (%) (Auto) 7.6 Eosinophils (%) (Auto) 0.0 Basophils (%) (Auto) 0.1 Neutrophils # (Auto) 14.0 Lymphocytes # (Auto) 0.7 Monocytes # (Auto) 1.2 Eosinophils # (Auto) 0.0 Basophils # (Auto) 0.0 CBC Comment DIFF FINAL Differential Comment Date/Time Source Procedure Growth Status 04/27/17 14:15 Blood Peripheral Aerobic Blood Culture - Final NO GROWTH IN 5 DAYS Complete 04/27/17 14:15 Blood Peripheral Anaerobic Blood Culture - Final NO GROWTH IN 5 DAYS Complete 05/13/17 12:45 Bronchial Washings Left Upper Lobe Fungal Smear Pending Received 05/13/17 12:45 Bronchial Washings Left Upper Lobe Fungal Culture Pending Received 05/06/17 07:50 Urine Catheterized Urine Urine Culture - Final NO GROWTH IN 48 HOURS. Complete Imaging Last Impressions Chest X-Ray 05/19/17 0000 Signed Impressions: Service Date/Time: Friday, May 19, 2017 10:56 - CONCLUSION: Good position of tracheostomy tube. No pneumothorax. Curt Mullen MD Abdomen X-Ray 05/18/17 0000 Signed Impressions: Service Date/Time: Thursday, May 18, 2017 09:30 - CONCLUSION: Probably ileus , progressed from 05/14/17. Rogerio Harris Jr., MD Abdomen/Pelvis CT 05/12/17 0000 Signed Impressions: Service Date/Time: Friday, May 12, 2017 17:56 - CONCLUSION: 1. Left lower lobe collapse and lingular consolidation. Endobronchial soft tissue within the left lower lobe, Mass versus mucus plugging are differential diagnostic considerations. 2. Body wall edema and ascites. 3. Nonobstructing right renal calculus. 4. Colitis with abnormal bowel wall thickening involving the ascending colon, and diffuse small bowel dilatation characteristic of an ileus. Ray Finney MD Chest Ultrasound 05/08/17 0000 Signed Impressions: Service Date/Time: Monday, May 08, 2017 13:01 - CONCLUSION: 1. There is a small left pleural effusion with insufficient volume for thoracentesis at this time. Ronaldo Howell MD Abdomen Fluoroscopy 05/01/17 0000 Signed Impressions: Service Date/Time: Monday, May 01, 2017 13:13 - CONCLUSION: Uncomplicated nasogastric tube placement as above. Zain Kumar MD Lower Extremity Ultrasound 04/28/17 0000 Signed Impressions: Service Date/Time: Friday, April 28, 2017 16:47 - CONCLUSION: Negative exam with no evidence of deep venous thrombosis. Johnathon White MD Chest CT 04/28/17 0000 Signed Impressions: Service Date/Time: Friday, April 28, 2017 11:03 - CONCLUSION: 1. Small bilateral pleural effusions with atelectasis in both lower lobes. There is also a focal area of groundglass opacity in the lingula that is nonspecific but could represent an infectious or inflammatory process. 2. Moderate size hiatal hernia with dilated and fluid-filled esophagus suggesting gastroesophageal reflux. The nasogastric tube distal tip is in the distal esophagus and should ideally be advanced into the stomach. Olu Triana MD Head CT 04/27/17 1017 Signed Impressions: Service Date/Time: Thursday, April 27, 2017 11:00 - CONCLUSION: 1. No acute intracranial abnormality. 2. Complete opacification left maxillary sinus. Keagan Shipman MD Renal Ultrasound 04/27/17 0000 Signed Impressions: Service Date/Time: Thursday, April 27, 2017 23:50 - CONCLUSION: Negative renal sonogram. Rogerio Gunn MD Physical Exam HEENT: Normocephalic CHEST: Resp even, mildly labored. Course breath sounds. Trach to vent CARDIAC: RRR ABDOMEN: Soft, mild-mod distended, nontender, BS active. Flexiseal with small amount of clear liquid EXTREMITIES: Generalized edema IRRIGATIONIST: Sedated on vent (Kathrin Carreno) Assessment and Plan Plan ASSESSMENT - Colonic/small bowel ileus. CT Scan abdomen and pelvis with IV contrast ()---->left lower lobe collapse and lingular consolidation. endobronchial sot tissue within left lower lobe, mass versus mucus plugging are differential diagnostic considerations. Body wall edema and ascites, nonobstructing renal calculus, colitis with abnormal bowel wall thickening involving the ascending colon, and diffuse small bowel dilatation suggesting ileus . S/P 2 SSE. S/P Relistor S/P Decompressive colonoscopy (05/06/17)----> stool throughout the colon, I did not see any masses, visualization was compromised with stool, decompression colon tube was placed. S/P Decompressive colonoscopy (05/12/17)---> Diverticulosis sigmoid poor prep, superficial ulcerations in ascending colon and cecum-biopsy with, pseudomembranes-consistent with cdiff. Pathology fragments of colonic mucosa and fragments of acute inflammatory exudate with ghost outlines of colonic mucosa, suggestive of ischemia. This could be seen in either pseudomembranous colitis or in ischemic colitis. Clinical correlation is suggested. Stools negative for cdiff pcr. Pt had improved and therefore we had signed off, but today we were reconsulted for worsening distention. KUB (05/20/17)--- > Dilatation of the transverse colon. Significant air filled small bowel bowel is not seen. On the prior exam, the small bowel was prominent. Hzy densities in the abdomen which may suggest ascites. Left lower lobe consolidation or atelectasis. He was started on trickle feeds yesterday. Clinically, he seems slightly more distended today. He has a flexiseal and it has a very small amount of clear liquid- no significant stool. Increase Lactulose to BID, Miralax Reglan, Add EES. Cont. Flagyl. - Colitis/pseudomembranes. CDiff vs. ischemic colitis. Pathology as above. Stool was negative for CDiff pcr. Flagyl - Anemia, macrocytic. S/P EGD (04/30/17)---> Martienz esophagus, Esophagitis, Gastritis, Foreign body in the distal esophagus. Pathology reactive gastropathy. S/P 2 units RBC, 2 units Platelets. Vitamin B12 1298. PPI. HH 8.0/24.6. - Martinez's Esophagus, Esophagitis, Gastritis. Pathology reactive gastropathy. PPI - Foreign body in distal esophagus, s/p EGD. - Dysphagia, FEN. Has tf with trickle feeds. GI asked to evaluate for PEG tube placement. Pt has persistent ileus with dilatation of the transverse colon. Clinically more distended today. Will increase lactulose, add EES. Will plan for PEG tube once ileus improves/resolves. - Elevated ammonia, acute encephalopathy. Ammonia 45. Lactulose, Xifaxan. - Elevated bilirubin. CT as above. History of ETOH abuse, drinks 1/5 of vodka daily. Hypoalbuminemia with albumin 2.1. Mild coagulopathy. Suspect liver cirrhosis, likely secondary to alcohol, fatty liver disease. LFTs are stable. Labs pending. - Sepsis, unclear source. Urine negative for legionella, streptococcus, bcx neg , sputum cx with light growth normal respiratory andrea. CT reveals possible pneumonia. Colonoscopy---> pseudomembranes consistent with cdiff vs. ischemia. Flagyl, Cefepime - Respiratory failure, COPD. S/P Trach (05/19). PLAN - Jevity 1.5 at 20cc/hr, slowly increase to GR as tolerated - Add EES - Add Miralax - Increase Lactulose to BID dosing - Cont. Flagyl - Cont. Xifaxan - Cont. PPI - Monitor labs - Supportive care - Consider PEG tube placement once ileus improves/resolves- still with dilated transverse colon on this am's KUB - Patient seen and examined by Dr. Loving and myself and this note is written on his behalf. (Kathrin Carreno) Physician Comments Seen and examined with SIMI, illeus appears to be worse today.TF as tolerated. Repeat kub in am. Bowel regimen. (Harrison Loving MD) Kathrin Carreno May 20, 2017 10:05 Harrison Loving MD May 20, 2017 14:30
[2017-05-20 10:08] LABS: ALKALINE PHOSPHATASE 72 U/L (45-117); ALT (GPT) 12 U/L (12-78); ANION GAP 9 MEQ/L (5-15); AST (GOT) 8 U/L (15-37); BLOOD UREA NITROGEN 16 MG/DL (7-18); CHLORIDE 108 MEQ/L (98-107); GLOMERULAR FILTRATION RATE 182 ML/MIN (>89); SODIUM (NA) 142 MEQ/L (136-145); TOTAL BILIRUBIN ADULT 0.6 MG/DL (0.2-1.0)
[2017-05-20 10:13] LABS: POTASSIUM 2.7 MEQ/L (3.5-5.1)
[2017-05-20] MEDS: POTASSIUM CHLOR 40 MEQ PREMIX 100 ML IV PRN ×2 (10:33→13:15)
[2017-05-20] MEDS: POLYETHYLENE GLYCOL 17 GM PKG PO SCH (10:33)
[2017-05-20] MEDS: CEFEPIME INJ 2,000 MG in SODIUM CHLORIDE 0.9% INJ 100 ML IV SCH (11:29)
[2017-05-20] MEDS: SODIUM CHLORIDE 0.9% FLUSH 10 ML FLUSH IV FLUSH PRN (13:12)
[2017-05-20] MEDS: ERYTHROMYCIN ETHYLSUCCINATE 200 MG/5 ML SUSP 100 ML BOTTLE PO SCH ×2 (14:00→21:54)
[2017-05-20] MEDS: methylPREDNISolone SOD SUCC 40 MG/1 ML VIAL IV PUSH SCH (16:33)
[2017-05-21] VITALS (20 sets, daily range): BP systolic 122–133; BP diastolic 78–92; PULSE 84–103; RESP 16–23; TEMP 98.1–98.8; O2SAT 91–100
[2017-05-21] MEDS: CEFEPIME INJ 2,000 MG in SODIUM CHLORIDE 0.9% INJ 100 ML IV SCH (00:33)
[2017-05-21] MEDS: POTASSIUM CHLOR 40 MEQ PREMIX 100 ML IV PRN ×2 (00:34→06:33)
[2017-05-21] MEDS: RESP: ALBUTEROL 2.5 MG/IPRATROPIUM 0.5 MG NEB (SCH) NEB ×7 (00:50→23:16)
[2017-05-21] MEDS: ACETAMINOPHEN 325 MG TAB PO PRN (03:20)
[2017-05-21] MEDS: ALBUMIN HUMAN 5% 25 GM/500 ML BOTTLE IV SCH ×2 (03:21→13:48)
[2017-05-21] MEDS: methylPREDNISolone SOD SUCC 40 MG/1 ML VIAL IV PUSH SCH ×2 (03:21→13:47)
[2017-05-21 04:43] LABS: AUTOMATED NEUTROPHIL # 13.8 TH/MM3 (1.8-7.7); BASOPHIL % 0.1 % (0.0-2.0); HEMATOCRIT 22.7 % (39.0-51.0); HEMO FLAGS DIFF FINAL; LYMPH % 6.1 % (9.0-44.0); MEAN CELL VOLUME 104.1 FL (80.0-100.0); MEAN CORPUSCULAR HEMOGLOBIN 33.8 PG (27.0-34.0); MEAN CORPUSCULAR HGB CONC 32.5 % (32.0-36.0); NEUT % 82.8 % (16.0-70.0); PLATELET COUNT 179 TH/MM3 (150-450); RED BLOOD COUNT 2.18 MIL/MM3 (4.50-5.90); RED CELL DISTRIBUTION WIDTH 24.7 % (11.6-17.2); WHITE BLOOD COUNT 16.6 TH/MM3 (4.0-11.0)
[2017-05-21 05:30] LABS: ALKALINE PHOSPHATASE 85 U/L (45-117); ALT (GPT) 15 U/L (12-78); ANION GAP 9 MEQ/L (5-15); AST (GOT) 24 U/L (15-37); BICARBONATE 24.7 MEQ/L (21.0-32.0); BLOOD UREA NITROGEN 21 MG/DL (7-18); CHLORIDE 112 MEQ/L (98-107); GLOMERULAR FILTRATION RATE 145 ML/MIN (>89); POTASSIUM 3.3 MEQ/L (3.5-5.1); SODIUM (NA) 146 MEQ/L (136-145); TOTAL BILIRUBIN ADULT 0.7 MG/DL (0.2-1.0)
--- NOTE | 2017-05-21 05:56 | RADRPT ---
EXAM DATE/TIME: 05/21/2017 04:25 [facility] COMPARISON: CHEST SINGLE AP, May 19, 2017, 10:56. INDICATIONS : Shortness of breath, possible pulmonary disease. MEDICAL HISTORY : Chronic obstructive pulmonary disease. Seizures SURGICAL HISTORY : None. ENCOUNTER: Subsequent ACUITY: 3 weeks PAIN SCORE: Non-responsive. LOCATION: Bilateral chest FINDINGS: The cardiac silhouette is enlarged in transverse diameter. There is patchy alveolar disease bilateral ly compatible with edema or pneumonia. There is left lower lobe atelectasis versus pneumonia. Support lines and tubes are in satisfactory position. CONCLUSION: 1. Cardiomegaly. Patchy alveolar disease characteristic of edema or pneumonia. There has been no sig nificant change when compared to the prior exam. Fabrizio Odom MD on May 21, 2017 at 5:54 Board Certified Radiologist. This report was verified electronically.
[2017-05-21] MEDS: ARTIFICIAL TEARS OPTH SOLN 15 ML BTL EACH EYE SCH ×4 (06:00→21:30)
[2017-05-21] MEDS: ERYTHROMYCIN ETHYLSUCCINATE 200 MG/5 ML SUSP 100 ML BOTTLE PO SCH ×3 (06:00→21:28)
[2017-05-21] MEDS: metroNIDAZOLE 500 MG INJ 100 ML IV SCH ×3 (06:26→23:11)
[2017-05-21] MEDS: METOCLOPRAMIDE HCL 10 MG/2 ML VIAL IV PUSH SCH ×3 (06:27→21:30)
[2017-05-21] MEDS: BUDESONIDE-FORMOTEROL 160/4.5 MCG INHALER INH SCH ×2 (07:30→18:21)
--- NOTE | 2017-05-21 07:49 | HHI.CCPN ---
Subjective Remarks/Hospital Course 61yM with h/o prior hepatic encephalopathy, etoh abuse, tobacco abuse, now admitted with weakness, fever, chills, worsening hypotension. called by hospitalist service overnight for clinical decline despite ivf resuscitation. Patient does complain of flank pain, but denies chest pain, abdominal pain. u/a +. started earlier on vanc/zosyn. has not voided. becoming worseningly agitated. unable to provide any additional information due to altered mental status. 04/28: Chart reviewed. Patient still quite agitated stating "I have to pee" patient has a Young catheter. Complaining of flank pain. Noted renal ultrasound negative. Currently on norepinephrine at 12 mg per minute. 04/29: Resting in bed in no acute distress. Currently on norepinephrine at 7 per minute for vasopressor support. Transfuse 2 units PRBC and 2 pack platelets overnight. Dilutional. Absolutely no signs of active bleeding. 04/30 Patient is sedated with Fentanyl and intubated. On Levophed 5 mics. Afebrile. For EGD today. 05/01 No events overnight. Sedated and intubated. On Levophed 4 mics. s/p EGD yesterday with shoed esophagitis, gastritis, food impaction in distal esophagus removed. 05/02: Afebrile. Off all vasopressors. NG tube advanced by IR yesterday. Feeding to be initiated today. Currently on fentanyl drip 05/03: Remains intubated sedated and not following commands remains on fentanyl infusion. Attempt CPAP trial if patient wakeful enough. Urine output minimal only 300 mL in 24 hours. Will give albumin and Bumex 05/04 Patient is sedated with Fentanyl and intubated. Afebrile. 05/05 Patient was self extubated last night. For possible decompressive colonoscopy today. Afebrile. 05/06 Patient is on 3L oxygen for decompressive colonoscopy today. On Precedex drip for agitation. CT abdomen/pelvis last night showed development of gaseous distention of the right and transverse colon with abrupt change in luminal dimension at the splenic flexure. There is a rectal tube in place and cannot differentiate between a focal obstruction/stricture versus decompression from the rectal tube. 05/07 Patient s/p decompressive colonoscopy last night KUB this morning showed decreased colonic distention. On 4L oxygen. 05/08 Patient was unresponsive on BIPAP this morning and was in resp distress he was subsequently intubated and placed on mechanical ventilation. CXR post intubation showed complete opacification of left hemithorax likely 2nd mucous plug 05/09 Patient is sedated with Fentanyl and intubated. Afebrile. 05/10 Patient remains sedated and intubated. Afebrile. Tolerating tube feeds 05/11: Tolerated PSV trials 3 hours today. Not tolerating tube feeding currently. KUB pending. Positive BM. Decreased urine output noted. 05/12: Lasted 1 hour on PSV trials today. Currently vomiting will be decompressed from above and below per GI today. Afebrile. Central line placed due to persistent hypotension 05/13: Permission from mother for bronchoscopy today for diagnosis left lower lobe on CAT scan of min/pelvis yesterday. Sample sent. Currently on linezolid , cefepime and Flagyl per infectious disease. 05/14: Patient remains intubated sedated, on sedation hold do not follow commands , but moving extremities. Initially intubated 04/28, self extubated 05/05, Re intubated for mucus plugging, AMS on 05/07 night. Combined vent day , mental status will not permit extubation. Copious yellow ETT secretions. 05/15: Gets agitated on CPAP. But intermittently follows commands. Good oxygen saturation. Chest x-ray shows improved aeration. Moderate secretions from ET tube but good cough. Will proceed with extubation. Remains full code 05/16: Patient was extubated yesterday but failed in about 1 hour due to stridor and tachypnea. Today off sedation mentation seems to be improved, tolerates CPAP with high settings but has bilateral crackles and coarse rhonchi. Family (son and daughter) starting in from [place]. Will be here tomorrow 05/17/17 and request the patient to be left intubated until they get here 05/17: Patient is more awake alert and appropriate in communicating even though on low-dose propofol and intubated. Waiting for family to arrive from [place] tonight. Possible weaning to extubation tomorrow 05/18: Awake alert following command on vent. Palliative care is meeting with family today. Once decision re: goals of care are made, most likely proceed with extubation 05/19: Patient was extubated yesterday and there myself under palliative care nurse practitioner Adalgisa Ellington had a detailed discussion with the patient. After talking to the family patient decided he wants to be full code and wants a tracheostomy and PEG tube done since this is his fourth reintubation. Currently intubated sedated tracheostomy today 05/20: Status post tracheostomy yesterday 05/19/17. Based on CPAP tolerating well now. We'll attempt T piece today. Discontinue Versed use propofol as needed. Labs pending 05/20: Remains intubated sedated. Tolerated CPAP 3 hours yesterday. Remains significantly fluid positive at least 2 KG since admission. Significant anasarca. Start on Bumex infusion. Chest x-ray shows fluid overload/pulmonary edema Objective Vital Signs Date Time Temp Pulse Resp B/P (MAP) Pulse Ox O2 Delivery O2 Flow Rate FiO2 05/21/17 06:00 96 05/21/17 04:49 100 40 05/21/17 04:30 16 05/21/17 04:00 98.4 126/84 (98) 05/18/17 16:00 Nasal Cannula 3.00 Intake and Output 05/21/17 05/21/17 05/21/17 07:59 15:59 23:59 Intake Total 875 ml Output Total 900 ml Balance -25 ml Result Diagram: 05/21/17 0405 05/21/17 0405 Imaging Last Impressions Chest X-Ray 05/13/17 0000 Signed Impressions: Service Date/Time: Saturday, May 13, 2017 13:22 - CONCLUSION: Stable chest appearance. Nasogastric tube in the distal esophagus Olu Rodriguez MD Abdomen/Pelvis CT 05/12/17 0000 Signed Impressions: Service Date/Time: Friday, May 12, 2017 17:56 - CONCLUSION: 1. Left lower lobe collapse and lingular consolidation. Endobronchial soft tissue within the left lower lobe, Mass versus mucus plugging are differential diagnostic considerations. 2. Body wall edema and ascites. 3. Nonobstructing right renal calculus. 4. Colitis with abnormal bowel wall thickening involving the ascending colon, and diffuse small bowel dilatation characteristic of an ileus. Ray Finney MD Abdomen X-Ray 05/12/17 0000 Signed Impressions: Service Date/Time: Friday, May 12, 2017 06:36 - CONCLUSION: 1. Reinsertion of the rectal tube which is coiled within the rectal vault. It may be kinked and not draining well. 2. Persistent gaseous distention of the colon although a slight decrease in the volume of gas. 3. New mildly dilated gas-filled loops of small bowel. Rogerio Harris Jr., MD Chest Ultrasound 05/08/17 0000 Signed Impressions: Service Date/Time: Monday, May 08, 2017 13:01 - CONCLUSION: 1. There is a small left pleural effusion with insufficient volume for thoracentesis at this time. Ronaldo Howell MD Abdomen Fluoroscopy 05/01/17 0000 Signed Impressions: Service Date/Time: Monday, May 01, 2017 13:13 - CONCLUSION: Uncomplicated nasogastric tube placement as above. Zain Kumar MD Lower Extremity Ultrasound 04/28/17 0000 Signed Impressions: Service Date/Time: Friday, April 28, 2017 16:47 - CONCLUSION: Negative exam with no evidence of deep venous thrombosis. Johnathon White MD Chest CT 04/28/17 0000 Signed Impressions: Service Date/Time: Friday, April 28, 2017 11:03 - CONCLUSION: 1. Small bilateral pleural effusions with atelectasis in both lower lobes. There is also a focal area of groundglass opacity in the lingula that is nonspecific but could represent an infectious or inflammatory process. 2. Moderate size hiatal hernia with dilated and fluid-filled esophagus suggesting gastroesophageal reflux. The nasogastric tube distal tip is in the distal esophagus and should ideally be advanced into the stomach. Oul Triana MD Head CT 04/27/17 1017 Signed Impressions: Service Date/Time: Thursday, April 27, 2017 11:00 - CONCLUSION: 1. No acute intracranial abnormality. 2. Complete opacification left maxillary sinus. Keagan Shipman MD Renal Ultrasound 04/27/17 0000 Signed Impressions: Service Date/Time: Thursday, April 27, 2017 23:50 - CONCLUSION: Negative renal sonogram. Rogerio Gunn MD Objective Remarks GENERAL: 61 year old male critically ill and ventilator while awake SKIN: Warm and dry. No rash HEAD: Normocephalic. EYES: No scleral icterus. Pupils are round 3 mm bilaterally and reactive ENT: Oral cavity is dry NECK: Supple, trachea midline. No JVD or lymphadenopathy. Right IJ is clean dry and intact. New trach in place with no significant bleeding CARDIOVASCULAR: RRR. S1, S2 no S4 without murmur RESPIRATORY: Breath sounds equal bilaterally. No accessory muscle use. Basilar crackles improved GASTROINTESTINAL: No guarding. No rigidity. Hypoactive bowel sounds appreciated throughout. MSK: There is significant anasarca and pitting edema NEURO: Awake alert on the vent, follows commands moves all extremities Vascular Central Line Catheter: Yes Assessment to: Remove Date of Insertion: Apr 28, 2017 Line: Central Venous Catheter Side: Right Location: Femoral A/P Assessment and Plan Neuro/Psych: Acute encephalopathy likely secondary to EtOH withdrawal/sepsis/hyperammonemia Alcohol dependence Stop all continuos sedation. RASS -0. Thiamine, folate and multivitamin daily CT brain 04/27 revealed left maxillary sinusitis otherwise no acute intra- cranial findings Patient does have a history of EtOH withdrawal seizures. Seizure precautions CV: Severe sepsis -improving Lactic acidosis- cleared Fluid overload Monitor HR and BP keep MAP>65mmHg On scheduled Bumex to achieve negative fluid balance-DC 05/21, and start Bumex infusion at 0.5 mg per hour Patient is fluid overloaded at least 12-13 KG since admission Resp: Respiratory failure- intubated 04/28, self extubated 05/05 reintubated 05/08. Extubated again on 05/15 and 05/18 with re intubation s/p Perc Trach 05/19/17 COPD exacerbation Ongoing tobaccoism s/p Perc Trach 05/19/17. (Skyla Raines/Ken) Patient wanted full code including tracheostomy and PEG tube placement. Decadron 4 mg 4 doses completed. Currently on IV Solu-Medrol since 05/18/17 reduce to 40 q12. Add inhaled budesonide Albuterol/ipratropium aerosols every 6 hours and albuterol aerosols every 2 hours. PRN ICU vent bundle. SBT, attempt TP up to 4 hours s/p Bronch with BAL 05/08: Thick secretions/mucous plug left main stem bronchus suctioned to clear CXR post bronch showed improved aeration left lung. Mucous plugging left lower lobe on CAT scan 05/12. s/p bronchoscopy 05/13 with removal of mucous plug. Nicotine patch 14 mg daily. GI: Hyperammonemia Colonic Ileus, small bowel ileus Elevated AST Hypoalbuminemia- mild protein calorie malnutrition Hiatal hernia Sigmoid diverticulosis Hepatic steatosis Ileus improving clinically and on KUB, tube feeds restarted by GI. Having regular bowel movements PEG tube this week CT abdomen/pelvis 05/12 revealed thickening ascending colon/small bowel dilatation/ileus. KUB 15 interval improvement in ileus KUB 05/18: Worsening ileus KUB 05/14 Improving bowel distention KUB 05/09: Mild improvements in bowel gas pattern. KUB 05/07: Decreased colonic distention KUB abdomen 05/04 showed severe ileus, cecum dilated to 10 cm s/p decompressive colonoscopy 05/06: Stool throughout the colon, Decompression colon tube was placed 05/05 CT abdomen/pelvis: Gaseous distention of the right and transverse colon with abrupt change in luminal dimension at the splenic flexure. Rectal tube in place and cannot differentiate between a focal obstruction/stricture versus decompression from the rectal tube. s/p EGD 04/30: Esophagitis, gastritis, food impaction in distal esophagus removed. Pantoprazole for GI prophylaxis. Docusate sodium/senna 1 tablet twice a day for bowel regimen. Continue Reglan : Right kidney nonobstructing stone 3 mm Renal ultrasound revealed no hydronephrosis Monitor renal function, I/O's, electrolytes replacement per protocol. Bumex infusion as above Endo: Hypokalemia hypomagnesemia Sliding-scale insulin to maintain euglycemia with Accu-Cheks every 6 hours with low regimen with Novolin R Electrolyte Replacement per protocol Heme: Leukocytosis Macrocytic anemia Patient was transfused 2 pack platelets and 2 PRBC 04/28. Follow CBC daily. Monitor trends. ID: Possible C. difficile colitis Aspiration pneumonia, E Coli in sputum Per infectious disease on cefepime and metronidazole. Linezolid DCd 05/16/17 s/p Zosyn 04/27- onitor for signs of infections ( Fever, WBC) Afebrile, Follow up on BAL results 05/09 and 05/13- NGTD. Sputum E Coli-S to cefepime Blood cultures 2 -04/27 -no growth to date Urine culture - 04/27 -50 - 100,000 mixed gram-positive Sputum 04/28- normal resp andrea Urine pneumococcal and Legionella antigens negative MSK: PT evaluate and treat Access -RIJ CVL placed 05/12 Prophylaxis - GI - pantoprazole - DVT - SCD/ Heparin SQ , Level 3 Palliative care following to address goals of care. Full code now. s/p trach . Attempt TP today Esteban Raines MD May 21, 2017 07:49
[2017-05-21] MEDS: PANTOPRAZOLE SODIUM 40 MG VIAL IV PUSH SCH (09:00)
[2017-05-21] MEDS: THIAMINE HCL 100 MG TAB PO SCH (09:00)
[2017-05-21] MEDS: RIFAXIMIN 550 MG TAB PO SCH ×2 (09:00→21:29)
[2017-05-21] MEDS: TIOTROPIUM BROMIDE 18 MCG INH INH SCH (09:00)
[2017-05-21] MEDS: GABAPENTIN 300 MG CAP PO SCH ×3 (09:00→18:16)
[2017-05-21] MEDS: DOCUSATE SODIUM 50 MG/SENNA 8.6 MG TAB PO SCH ×2 (09:00→21:29)
[2017-05-21] MEDS: LACTULOSE SYRUP 20 GM/30 ML CUP PO SCH ×2 (09:00→21:29)
[2017-05-21] MEDS: MULTIVITAMIN TAB PO SCH (09:00)
[2017-05-21] MEDS: POLYETHYLENE GLYCOL 17 GM PKG PO SCH (09:00)
[2017-05-21] MEDS: SODIUM CHLORIDE 0.9% FLUSH 10 ML FLUSH IV FLUSH SCH (09:01)
[2017-05-21] MEDS: SODIUM CHLORIDE 0.9% FLUSH 10 ML FLUSH IVF SCH (09:03)
[2017-05-21] MEDS: FOLIC ACID 1 MG TAB PO SCH (09:14)
[2017-05-21] MEDS: POTASSIUM CHLORIDE 25 MEQ EFFERVESCENT TAB PO SCH ×2 (09:14→21:29)
[2017-05-21] MEDS: NICOTINE 14 MG/24 HR PATCH T-DERMAL SCH (09:31)
[2017-05-21] MEDS: REMOVE OLD PATCH T-DERMAL SCH (09:31)
--- NOTE | 2017-05-21 09:58 | HHI.IDPN ---
Subjective Subjective Remarks ID COVERAGE Chart reviewed is a 61y CM with PMHx of ETOH abuse, prior hepatic encephalopathy, chronic alcoholism, ETOH withdrawal seizures who presented with weakness, dizziness, and having a fall and not being able to get up, per EMR admitted . Since admission, has had complicated hospital course, has been reintubated at least 4x, ans subsequently underwent tracheostomy 05/19. ALso has had problems with abdominal distension, N/V, has had at least 2 decompressive colonoscopies, last one showing findings suggestive of either ischemic colitis or PMC. D/W RN Patient currently awake and alert He is on CPAP He is not on pressors Has diarrhea, not a lot of volume Afebrile Has RIJ central line Has erwin cath in place Has full code status Antibiotics Cefepime IV Flagyl IV I attest I obtained, reviewed or updated the home meds and current meds (for name, dose, freq and route). Current Medications Medications (Trade) Dose Ordered Sig/Brenda Route Start Time Stop Time Status Last Admin (Neurontin) 300 mg TID PO 04/27/17 13:00 Future hold 05/21/17 09:00 (Tylenol) 650 mg Q4H PRN PO 04/27/17 12:30 05/21/17 03:20 (Compazine Supp) 25 mg Q12H PRN RECTAL 04/27/17 12:30 (Narcan Inj) 0.4 mg UNSCH PRN IV PUSH 04/27/17 12:30 (Beena-Colace) 1 tab BID PO 04/27/17 21:00 Future hold 05/21/17 09:00 (Milk Of Magnesia Liq) 30 ml Q12H PRN PO 04/27/17 12:30 (Senokot) 17.2 mg Q12H PRN PO 04/27/17 12:30 (Dulcolax Supp) 10 mg DAILY PRN RECTAL 04/27/17 12:30 (Xifaxan) 550 mg BID PO 04/27/17 21:00 05/21/17 09:00 (Catapres) 0.1 mg Q6H PRN PO 04/27/17 12:30 (Habitrol 14 Mg Patch.24 Hr) 1 patch DAILY T-DERMAL 04/28/17 09:00 05/20/17 09:02 Miscellaneous Information 1 DAILY T-DERMAL 04/28/17 09:00 05/21/17 09:31 Miscellaneous Information Patient in critical care unit? Ass... [id number] 04/27/17 17:30 Potassium Chloride 100 ml @ 50 mls/hr Q2H PRN IV 04/28/17 07:15 05/21/17 06:33 Potassium Chloride 100 ml @ 50 mls/hr Q2H PRN IV 04/28/17 07:15 05/18/17 18:51 (K-Lyte Cl Eff) 50 meq UNSCH PRN PO 04/28/17 07:15 Potassium Chloride 100 ml @ 25 mls/hr UNSCH PRN IV 04/28/17 07:15 05/21/17 08:58 Potassium Chloride 100 ml @ 50 mls/hr Q2H PRN IV 04/28/17 07:15 05/18/17 10:48 Magnesium Sulfate 4 gm/Sodium Chloride 100 ml @ 50 mls/hr UNSCH PRN IV 04/28/17 07:15 (Mag-Ox) 800 mg UNSCH PRN PO 04/28/17 07:15 Magnesium Sulfate 2 gm/Sodium Chloride 100 ml @ 50 mls/hr UNSCH PRN IV 04/28/17 07:15 05/20/17 03:33 (K-Phos) 2,000 mg Q4H PRN PO 04/28/17 07:15 Sodium Phosphate 30 mmol/Sodium Chloride 250 ml @ 42 mls/hr UNSCH PRN IV 04/28/17 07:15 05/10/17 10:31 (K-Phos) 2,000 mg UNSCH PRN PO/TUBE 04/28/17 07:15 Potassium Phosphate 30 mmol/ Sodium Chloride 260 ml @ 42 mls/hr UNSCH PRN IV 04/28/17 07:15 (Peridex 0.12% Liq) 15 ml BID@08,20 MT 04/28/17 20:00 05/20/17 09:03 (Tears Naturale Opth Soln) 1 drop Q8HR EACH EYE 04/28/17 14:00 05/21/17 06:00 (Protonix Inj) 40 mg DAILY IV PUSH 04/28/17 09:30 05/21/17 09:00 (NS Flush) DAILY IVF 04/29/17 15:45 05/21/17 09:03 (NS Flush) UNSCH PRN IVF 04/29/17 15:45 05/17/17 08:12 (Vitamin B1) 100 mg DAILY PO 04/30/17 09:15 05/21/17 09:00 (Theragran) 1 tab DAILY PO 04/30/17 09:15 05/21/17 09:00 (Folate) 1 mg DAILY PO 04/30/17 09:15 05/21/17 09:14 (Heparin Inj) 5,000 units Q12HR SQ 05/08/17 21:00 Future Hold 05/18/17 09:48 (Albuterol Neb) 2.5 mg Q2HR NEB PRN NEB 05/11/17 13:45 (Albumin 5% Inj) 25 gm Q12H IV 05/11/17 14:00 05/22/17 13:59 05/21/17 03:21 (Reglan Inj) 10 mg Q8HR IV PUSH 05/12/17 14:00 05/21/17 06:27 (NS Flush) DAILY IV FLUSH 05/13/17 09:00 05/21/17 09:01 (NS Flush) UNSCH PRN IV FLUSH 05/12/17 14:30 05/20/17 13:12 (Brethine Inj) 1 mg UNSCH PRN SQ 05/12/17 14:30 Cefepime HCl 2000 mg/Sodium Chloride 100 ml @ 200 mls/hr Q12H IV 05/13/17 12:00 05/21/17 00:33 Metronidazole 100 ml @ 100 mls/hr Q8H IV 05/16/17 15:00 05/21/17 06:26 (Duoneb Neb) 1 ampule Q4HR NEB NEB 05/18/17 20:00 05/21/17 08:43 (Symbicort 160-4.5 Inh) 2 puff Q12H INH 05/18/17 18:00 05/20/17 17:01 (Spiriva Inh) 18 mcg DAILY INH 05/18/17 18:00 (Cathflo Activase Inj) 2 mg Q2H PRN INTRACATH 05/19/17 21:45 05/19/17 22:09 (Lactulose Liq) 30 ml BID PO 05/20/17 21:00 05/21/17 09:00 (Ees 200 Mg/5 ml Liq) 100 mg Q8HR PO 05/20/17 14:00 05/21/17 06:00 (Miralax) 17 gm DAILY PO 05/20/17 10:15 05/21/17 09:00 Bumetanide 100 ml @ 2 mls/hr Q24H IV 05/21/17 07:41 (K-Lyte Cl Eff) 25 meq Q12H PO 05/21/17 09:00 05/21/17 09:14 (SoluMEDROL INJ) 40 mg Q12H IV PUSH 05/21/17 13:00 (Pulmicort Respule Neb) 0.5 mg Q12HR NEB NEB 05/21/17 08:00 Lines Line sites with no e.o infection Past Medical History COPD and tobacco abuse Alcohol abuse History of alcohol withdrawal seizures Tonsillectomy Allergies: Coded Allergies: No Known Allergies (Verified Allergy, Unknown, 04/27/17) Uncoded Allergies: STEROIDS (Allergy, Unknown, 07/13/14) Objective . Vital Signs Date Time Temp Pulse Resp B/P (MAP) Pulse Ox O2 Delivery O2 Flow Rate FiO2 05/21/17 08:45 100 40 05/21/17 06:00 96 05/21/17 04:49 100 40 05/21/17 04:30 16 05/21/17 04:00 98.4 95 16 126/84 (98) 98 05/21/17 04:00 40 05/21/17 04:00 96 05/21/17 02:00 84 05/21/17 00:51 99 40 05/21/17 00:00 98.8 103 18 132/87 (102) 100 05/21/17 00:00 84 05/21/17 00:00 40 05/20/17 22:00 92 05/20/17 20:51 100 40 05/20/17 20:00 92 05/20/17 20:00 40 05/20/17 20:00 99.1 100 17 129/85 (100) 100 05/20/17 18:00 100 05/20/17 17:00 99 22 130/90 (103) 100 05/20/17 16:00 97.8 101 17 130/89 (103) 100 05/20/17 16:00 40 05/20/17 16:00 101 05/20/17 15:18 100 40 05/20/17 15:00 99 16 132/90 (104) 100 05/20/17 14:00 99 20 134/89 (104) 99 05/20/17 14:00 99 05/20/17 13:00 97 21 131/88 (102) 99 05/20/17 12:00 101 22 124/86 (99) 98 05/20/17 12:00 101 05/20/17 12:00 101 22 124/86 (99) 98 05/20/17 12:00 40 05/20/17 11:09 99 40 05/20/17 11:01 107 32 118/96 (103) 99 05/20/17 10:00 96 27 117/77 (90) 98 05/20/17 10:00 96 . Laboratory Tests Test 05/20/17 09:15 05/21/17 04:05 White Blood Count 15.8 TH/MM3 16.6 TH/MM3 Red Blood Count 2.36 MIL/MM3 2.18 MIL/MM3 Hemoglobin 8.0 GM/DL 7.4 GM/DL Hematocrit 24.6 % 22.7 % Mean Corpuscular Volume 104.3 FL 104.1 FL Mean Corpuscular Hemoglobin 33.8 PG 33.8 PG Mean Corpuscular Hemoglobin Concent 32.5 % 32.5 % Red Cell Distribution Width 24.1 % 24.7 % Platelet Count 198 TH/MM3 179 TH/MM3 Mean Platelet Volume 8.8 FL 9.0 FL Neutrophils (%) (Auto) 88.2 % 82.8 % Lymphocytes (%) (Auto) 4.1 % 6.1 % Monocytes (%) (Auto) 7.6 % 11.0 % Eosinophils (%) (Auto) 0.0 % 0.0 % Basophils (%) (Auto) 0.1 % 0.1 % Neutrophils # (Auto) 14.0 TH/MM3 13.8 TH/MM3 Lymphocytes # (Auto) 0.7 TH/MM3 1.0 TH/MM3 Monocytes # (Auto) 1.2 TH/MM3 1.8 TH/MM3 Eosinophils # (Auto) 0.0 TH/MM3 0.0 TH/MM3 Basophils # (Auto) 0.0 TH/MM3 0.0 TH/MM3 CBC Comment DIFF FINAL DIFF FINAL Differential Comment Laboratory Tests Test 05/20/17 09:15 05/20/17 20:30 05/21/17 04:05 Blood Urea Nitrogen 16 MG/DL 21 MG/DL Creatinine 0.47 MG/DL 0.57 MG/DL Random Glucose 143 MG/DL 111 MG/DL Total Protein 5.8 GM/DL 5.8 GM/DL Albumin 3.3 GM/DL 3.4 GM/DL Calcium Level 8.7 MG/DL 8.4 MG/DL Alkaline Phosphatase 72 U/L 85 U/L Aspartate Amino Transf (AST/SGOT) 8 U/L 24 U/L Alanine Aminotransferase (ALT/SGPT) 12 U/L 15 U/L Total Bilirubin 0.6 MG/DL 0.7 MG/DL Sodium Level 142 MEQ/L 146 MEQ/L Potassium Level 2.7 MEQ/L 3.2 MEQ/L 3.3 MEQ/L Chloride Level 108 MEQ/L 112 MEQ/L Carbon Dioxide Level 25.0 MEQ/L 24.7 MEQ/L Anion Gap 9 MEQ/L 9 MEQ/L Estimat Glomerular Filtration Rate 182 ML/MIN 145 ML/MIN Magnesium Level 1.8 MG/DL Imaging Chest X-Ray 05/21/17 0600 Signed Impressions: Service Date/Time: Sunday, May 21, 2017 04:25 - CONCLUSION: 1. Cardiomegaly. Patchy alveolar disease characteristic of edema or pneumonia. There has been no significant change when compared to the prior exam. Fabrizio Odom MD Abdomen X-Ray 05/20/17 0600 Signed Impressions: Service Date/Time: Saturday, May 20, 2017 03:20 - CONCLUSION: 1. Dilatation of the transverse colon. Significant air filled small bowel is not seen. On the prior exam, the small bowel was prominent. 2. Hazy densities in the abdomen which may suggest ascites. 3. Left lower lobe consolidation or atelectasis. Olu Herrera MD Abdomen/Pelvis CT 05/12/17 0000 Signed Impressions: Service Date/Time: Friday, May 12, 2017 17:56 - CONCLUSION: 1. Left lower lobe collapse and lingular consolidation. Endobronchial soft tissue within the left lower lobe, Mass versus mucus plugging are differential diagnostic considerations. 2. Body wall edema and ascites. 3. Nonobstructing right renal calculus. 4. Colitis with abnormal bowel wall thickening involving the ascending colon, and diffuse small bowel dilatation characteristic of an ileus. Ray Finney MD Chest Ultrasound 05/08/17 Signed Impressions: Service Date/Time: Monday, May 08, 2017 13:01 - CONCLUSION: 1. There is a small left pleural effusion with insufficient volume for thoracentesis at this time. Ronaldo Howell MD Abdomen Fluoroscopy 05/01/17 Signed Impressions: Service Date/Time: Monday, May 01, 2017 13:13 - CONCLUSION: Uncomplicated nasogastric tube placement as above. Zain Kumar MD Lower Extremity Ultrasound 04/28/17 Signed Impressions: Service Date/Time: Friday, April 28, 2017 16:47 - CONCLUSION: Negative exam with no evidence of deep venous thrombosis. Johnathon White MD Chest CT 04/28/17 Signed Impressions: Service Date/Time: Friday, April 28, 2017 11:03 - CONCLUSION: 1. Small bilateral pleural effusions with atelectasis in both lower lobes. There is also a focal area of groundglass opacity in the lingula that is nonspecific but could represent an infectious or inflammatory process. 2. Moderate size hiatal hernia with dilated and fluid-filled esophagus suggesting gastroesophageal reflux. The nasogastric tube distal tip is in the distal esophagus and should ideally be advanced into the stomach. Olu Triana MD Head CT 04/27/17 1017 Signed Impressions: Service Date/Time: Thursday, April 27, 2017 11:00 - CONCLUSION: 1. No acute intracranial abnormality. 2. Complete opacification left maxillary sinus. Keagan Shipman MD Renal Ultrasound 04/27/17 0000 Signed Impressions: Service Date/Time: Thursday, April 27, 2017 23:50 - CONCLUSION: Negative renal sonogram. Rogerio Gunn MD Chest X-Ray 05/12/17 0600 Signed Impressions: Service Date/Time: Friday, May 12, 2017 03:49 - CONCLUSION: Upper lobe infiltrate with unchanged left lower lobe infiltrate. Rogerio Harris Jr., MD Abdomen/Pelvis CT 05/12/17 0000 Signed Impressions: Service Date/Time: Friday, May 12, 2017 17:56 - CONCLUSION: 1. Left lower lobe collapse and lingular consolidation. Endobronchial soft tissue within the left lower lobe, Mass versus mucus plugging are differential diagnostic considerations. 2. Body wall edema and ascites. 3. Nonobstructing right renal calculus. 4. Colitis with abnormal bowel wall thickening involving the ascending colon, and diffuse small bowel dilatation characteristic of an ileus. Ray Finney MD Abdomen X-Ray 05/12/17 0000 Signed Impressions: Service Date/Time: Friday, May 12, 2017 06:36 - CONCLUSION: 1. Reinsertion of the rectal tube which is coiled within the rectal vault. It may be kinked and not draining well. 2. Persistent gaseous distention of the colon although a slight decrease in the volume of gas. 3. New mildly dilated gas-filled loops of small bowel. Rogerio Harris Jr., MD Chest Ultrasound 05/08/17 0000 Signed Impressions: Service Date/Time: Monday, May 08, 2017 13:01 - CONCLUSION: 1. There is a small left pleural effusion with insufficient volume for thoracentesis at this time. Ronaldo Howell MD Abdomen Fluoroscopy 05/01/17 0000 Signed Impressions: Service Date/Time: Monday, May 01, 2017 13:13 - CONCLUSION: Uncomplicated nasogastric tube placement as above. Zain Kumar MD Lower Extremity Ultrasound 04/28/17 0000 Signed Impressions: Service Date/Time: Friday, April 28, 2017 16:47 - CONCLUSION: Negative exam with no evidence of deep venous thrombosis. Johnathon White MD Chest CT 04/28/17 0000 Signed Impressions: Service Date/Time: Friday, April 28, 2017 11:03 - CONCLUSION: 1. Small bilateral pleural effusions with atelectasis in both lower lobes. There is also a focal area of groundglass opacity in the lingula that is nonspecific but could represent an infectious or inflammatory process. 2. Moderate size hiatal hernia with dilated and fluid-filled esophagus suggesting gastroesophageal reflux. The nasogastric tube distal tip is in the distal esophagus and should ideally be advanced into the stomach. Olu Triana MD Head CT 04/27/17 1017 Signed Impressions: Service Date/Time: Thursday, April 27, 2017 11:00 - CONCLUSION: 1. No acute intracranial abnormality. 2. Complete opacification left maxillary sinus. Keagan Shipman MD Renal Ultrasound 04/27/17 0000 Signed Impressions: Service Date/Time: Thursday, April 27, 2017 23:50 - CONCLUSION: Negative renal sonogram. Rogerio Gunn MD Physical Exam GENERAL: Awake and alert, comfortable on CPAP, following all commands SKIN: No rashes. Ecchymoses. Cool and dry. HEAD: Atraumatic. Normocephalic. No temporal or scalp tenderness. EYES: Pupils equal round and reactive. Extraocular motions intact. [place] conjunctiva. No petechia or injection ENT: Nose without bleeding, purulent drainage or septal hematoma. Moist mucosa NECK: Trach site ok. RIJ TLC ok CARDIOVASCULAR: Regular rate and rhythm without murmurs. RESPIRATORY: Clear to auscultation. Breath sounds equal bilaterally. No wheezes , rales, or rhonchi. GASTROINTESTINAL: Abdomen soft, non-tender, slightly distended. (+) BS, not guarding MUSCULOSKELETAL: Extremities without clubbing, cyanosis. Anasarca, Pedal edema 3 +. NEUROLOGICAL: Opens eyes, follows commands, moves all extremities. PSYCH: Calm, and cooperative : Erwin in place, urine looks clear IV line sites with no e.o infection. Assessment & Plan Remarks IMPRESSION Aspiration Pneumonia (vomiting due to Gaseous distention this am) s/p colonic decompression 05/12/17 and other times in this admission. - sputum C/S E coli Ileus S/P decompression - PMC vs ischemic colitis on path report Pseudomembranous colitis (r/o cdiff) COPD exacerbation Alcoholism Cirrhosis of liver. Acute metabolic encephalopathy PLAN Change Cefepime to Rocephin - give 7 days - sputum C/S with E coli Continue Flagyl IV (anaerobes and Cdiff coverage). Cdiff can be negative with use of barrier cream used in pericare. Needs IV flagyl as pt had N/V and GI issues yday. - if GI issue settled down,, change to oral Monitor progress Weaning per CCM D/W Violet Tom MD May 21, 2017 09:58
[2017-05-21] MEDS: cefTRIAXone INJ 2,000 MG in SODIUM CHLORIDE 0.9% INJ 100 ML IV SCH (10:53)
[2017-05-21] MEDS: BUMETANIDE INJ 100 ML IV SCH (12:00)
--- NOTE | 2017-05-21 16:21 | HHI.GIFU ---
Subjective Remarks Resting in bed. Awake on vent. No distress. Tolerating TF at 20cc/hr. Still with abdominal distention. Has flexiseal and this leaked a large amount of liquid stool today. (Kathrin Carreno) Objective Vitals I&O Vital Signs Date Time Temp Pulse Resp B/P (MAP) Pulse Ox O2 Delivery O2 Flow Rate FiO2 05/21/17 15:49 100 40 05/21/17 12:31 100 40 05/21/17 11:00 99 T-piece 6.00 40 05/21/17 08:45 100 40 05/21/17 06:00 96 05/21/17 04:49 100 40 05/21/17 04:30 16 05/21/17 04:00 98.4 95 16 126/84 (98) 98 05/21/17 04:00 40 05/21/17 04:00 96 05/21/17 02:00 84 05/21/17 00:51 99 40 05/21/17 00:00 98.8 103 18 132/87 (102) 100 05/21/17 00:00 84 05/21/17 00:00 40 05/20/17 22:00 92 05/20/17 20:51 100 40 05/20/17 20:00 92 05/20/17 20:00 40 05/20/17 20:00 99.1 100 17 129/85 (100) 100 05/20/17 18:00 100 05/20/17 17:00 99 22 130/90 (103) 100 I/O 05/20/17 05/20/17 05/20/17 05/21/17 05/21/17 05/21/17 07:00 15:00 23:00 07:00 15:00 23:00 Intake Total 2485 ml 205 ml 1399 ml 975 ml Output Total 470 ml 1050 ml 900 ml Balance 2015 ml 205 ml 349 ml 75 ml IV Total 2225 ml 205 ml 323 ml 763 ml Tube Feeding 220 ml 216 ml 212 ml Albumin 500 ml Tube Irrigant 40 ml 360 ml Output Urine Total 450 ml 650 ml 500 ml Stool Total 20 ml 400 ml 400 ml Laboratory Laboratory Tests Test 05/20/17 20:30 05/21/17 04:05 Potassium Level 3.2 3.3 White Blood Count 16.6 Red Blood Count 2.18 Hemoglobin 7.4 Hematocrit 22.7 Mean Corpuscular Volume 104.1 Mean Corpuscular Hemoglobin 33.8 Mean Corpuscular Hemoglobin Concent 32.5 Red Cell Distribution Width 24.7 Platelet Count 179 Mean Platelet Volume 9.0 Neutrophils (%) (Auto) 82.8 Lymphocytes (%) (Auto) 6.1 Monocytes (%) (Auto) 11.0 Eosinophils (%) (Auto) 0.0 Basophils (%) (Auto) 0.1 Neutrophils # (Auto) 13.8 Lymphocytes # (Auto) 1.0 Monocytes # (Auto) 1.8 Eosinophils # (Auto) 0.0 Basophils # (Auto) 0.0 CBC Comment DIFF FINAL Differential Comment Blood Urea Nitrogen 21 Creatinine 0.57 Random Glucose 111 Total Protein 5.8 Albumin 3.4 Calcium Level 8.4 Alkaline Phosphatase 85 Aspartate Amino Transf (AST/SGOT) 24 Alanine Aminotransferase (ALT/SGPT) 15 Total Bilirubin 0.7 Sodium Level 146 Chloride Level 112 Carbon Dioxide Level 24.7 Anion Gap 9 Estimat Glomerular Filtration Rate 145 Date/Time Source Procedure Growth Status 04/27/17 14:15 Blood Peripheral Aerobic Blood Culture - Final NO GROWTH IN 5 DAYS Complete 04/27/17 14:15 Blood Peripheral Anaerobic Blood Culture - Final NO GROWTH IN 5 DAYS Complete 05/13/17 12:45 Bronchial Washings Left Upper Lobe Fungal Smear Pending Resulted 05/13/17 12:45 Bronchial Washings Left Upper Lobe Fungal Culture - Preliminary NO GROWTH IN 1 WEEK Resulted 05/06/17 07:50 Urine Catheterized Urine Urine Culture - Final NO GROWTH IN 48 HOURS. Complete Imaging Last Impressions Chest X-Ray 05/21/17 0600 Signed Impressions: Service Date/Time: Sunday, May 21, 2017 04:25 - CONCLUSION: 1. Cardiomegaly. Patchy alveolar disease characteristic of edema or pneumonia. There has been no significant change when compared to the prior exam. Fabrizio Odom MD Abdomen X-Ray 05/20/17 0600 Signed Impressions: Service Date/Time: Saturday, May 20, 2017 03:20 - CONCLUSION: 1. Dilatation of the transverse colon. Significant air filled small bowel is not seen. On the prior exam, the small bowel was prominent. 2. Hazy densities in the abdomen which may suggest ascites. 3. Left lower lobe consolidation or atelectasis. Olu Herrera MD Abdomen/Pelvis CT 05/12/17 0000 Signed Impressions: Service Date/Time: Friday, May 12, 2017 17:56 - CONCLUSION: 1. Left lower lobe collapse and lingular consolidation. Endobronchial soft tissue within the left lower lobe, Mass versus mucus plugging are differential diagnostic considerations. 2. Body wall edema and ascites. 3. Nonobstructing right renal calculus. 4. Colitis with abnormal bowel wall thickening involving the ascending colon, and diffuse small bowel dilatation characteristic of an ileus. Ray Finney MD Chest Ultrasound 05/08/17 0000 Signed Impressions: Service Date/Time: Monday, May 08, 2017 13:01 - CONCLUSION: 1. There is a small left pleural effusion with insufficient volume for thoracentesis at this time. Ronaldo Howell MD Abdomen Fluoroscopy 05/01/17 0000 Signed Impressions: Service Date/Time: Monday, May 01, 2017 13:13 - CONCLUSION: Uncomplicated nasogastric tube placement as above. Zain Kumar MD Lower Extremity Ultrasound 04/28/17 0000 Signed Impressions: Service Date/Time: Friday, April 28, 2017 16:47 - CONCLUSION: Negative exam with no evidence of deep venous thrombosis. Johnathon White MD Chest CT 04/28/17 0000 Signed Impressions: Service Date/Time: Friday, April 28, 2017 11:03 - CONCLUSION: 1. Small bilateral pleural effusions with atelectasis in both lower lobes. There is also a focal area of groundglass opacity in the lingula that is nonspecific but could represent an infectious or inflammatory process. 2. Moderate size hiatal hernia with dilated and fluid-filled esophagus suggesting gastroesophageal reflux. The nasogastric tube distal tip is in the distal esophagus and should ideally be advanced into the stomach. Olu Triana MD Head CT 04/27/17 1017 Signed Impressions: Service Date/Time: Thursday, April 27, 2017 11:00 - CONCLUSION: 1. No acute intracranial abnormality. 2. Complete opacification left maxillary sinus. Keagan Shipman MD Renal Ultrasound 04/27/17 0000 Signed Impressions: Service Date/Time: Thursday, April 27, 2017 23:50 - CONCLUSION: Negative renal sonogram. Rogerio Gunn MD Physical Exam HEENT: Normocephalic CHEST: Resp even, mildly labored. Course breath sounds. Trach to vent CARDIAC: RRR ABDOMEN: Tympanic, mod distended, BS active. Flexiseal with stool and leaked a large amount of liquid stool EXTREMITIES: Generalized edema IN [employer]: Sedated on vent (Kathrin Carreno) Assessment and Plan Plan ASSESSMENT - Colonic/small bowel ileus. CT Scan abdomen and pelvis with IV contrast ()---->left lower lobe collapse and lingular consolidation. endobronchial sot tissue within left lower lobe, mass versus mucus plugging are differential diagnostic considerations. Body wall edema and ascites, nonobstructing renal calculus, colitis with abnormal bowel wall thickening involving the ascending colon, and diffuse small bowel dilatation suggesting ileus . S/P 2 SSE. S/P Relistor S/P Decompressive colonoscopy (05/06/17)----> stool throughout the colon, I did not see any masses, visualization was compromised with stool, decompression colon tube was placed. S/P Decompressive colonoscopy (05/12/17)---> Diverticulosis sigmoid poor prep, superficial ulcerations in ascending colon and cecum-biopsy with, pseudomembranes-consistent with cdiff. Pathology fragments of colonic mucosa and fragments of acute inflammatory exudate with ghost outlines of colonic mucosa, suggestive of ischemia. This could be seen in either pseudomembranous colitis or in ischemic colitis. Clinical correlation is suggested. Stools negative for cdiff pcr. Pt had improved and therefore we had signed off, but today we were reconsulted for worsening distention. KUB (05/20/17)--- > Dilatation of the transverse colon. Significant air filled small bowel bowel is not seen. On the prior exam, the small bowel was prominent. Hzy densities in the abdomen which may suggest ascites. Left lower lobe consolidation or atelectasis. He was started on trickle feeds yesterday. Remains distended, but moving his bowels and tolerating TF. + large bm. Flexiseal Lactulose to BID, Miralax, Reglan, EES. Cont. Flagyl. - Colitis/pseudomembranes. CDiff vs. ischemic colitis. Pathology as above. Stool was negative for CDiff pcr. Flagyl - Anemia, macrocytic. S/P EGD (04/30/17)---> Martinez esophagus, Esophagitis, Gastritis, Foreign body in the distal esophagus. Pathology reactive gastropathy. S/P 2 units RBC, 2 units Platelets. Vitamin B12 1298. PPI. HH 7.4/22.7. - Martinez's Esophagus, Esophagitis, Gastritis. Pathology reactive gastropathy. PPI - Foreign body in distal esophagus, s/p EGD. - Dysphagia, FEN. Has tf with trickle feeds. GI asked to evaluate for PEG tube placement. Pt has persistent ileus with dilatation of the transverse colon. Clinically more distended today. Will increase lactulose, add EES. Will plan for PEG tube once ileus improves/resolves. - Elevated ammonia, acute encephalopathy. Lactulose, Xifaxan. - Elevated bilirubin. CT as above. History of ETOH abuse, drinks 1/5 of vodka daily. Hypoalbuminemia with albumin 2.1. Mild coagulopathy. Suspect liver cirrhosis, likely secondary to alcohol, fatty liver disease. LFTs are stable- T. Bili now 0.7, 24, 15, 85. - Sepsis, unclear source. Urine negative for legionella, streptococcus, bcx neg , sputum cx with light growth normal respiratory andrea. CT reveals possible pneumonia. Colonoscopy---> pseudomembranes consistent with cdiff vs. ischemia. Flagyl, Ceftriaxone - Respiratory failure, COPD. S/P Trach (05/19). PLAN - Plan for egd with peg tube placement in am - Obtain consents - NPO after MN - Heparin is on hold - Cont. PPI - Cont. EES - Cont. Miralax - Cont. Flagyl - Cont. Xifaxan/Lactulose - Monitor labs - Supportive care - Patient seen and examined by and myself and this note is written on his behalf. (Kathrin Carreno) Physician Comments Patient seen and examined Agree with above Continue with current supportive care Monitor labs Abdominal examination reveals only mild abdominal distention I think we are able to proceed with PEG placement at this point and we shall plan for tomorrow (Arnel Ventura MD) Kathrin Carreno May 21, 2017 16:21 Arnel Ventura MD May 21, 2017 20:33
[2017-05-21] MEDS: CHLORHEXIDINE 0.12% (ORAL KIT) 15 ML CUP MT SCH (19:38)
[2017-05-21] MEDS: RESP: BUDESONIDE 0.5 MG/2 ML NEB NEB SCH (20:23)
[2017-05-22] VITALS (17 sets, daily range): BP systolic 118–141; BP diastolic 83–93; PULSE 78–107; RESP 21–28; TEMP 98.6–98.9; O2SAT 88–100
[2017-05-22] MEDS: ALBUMIN HUMAN 5% 25 GM/500 ML BOTTLE IV SCH (01:28)
[2017-05-22] MEDS: methylPREDNISolone SOD SUCC 40 MG/1 ML VIAL IV PUSH SCH ×2 (01:28→12:43)
[2017-05-22] MEDS: RESP: ALBUTEROL 2.5 MG/IPRATROPIUM 0.5 MG NEB (SCH) NEB ×4 (03:31→16:02)
[2017-05-22] MEDS: BUDESONIDE-FORMOTEROL 160/4.5 MCG INHALER INH SCH ×2 (05:27→16:50)
[2017-05-22] MEDS: ERYTHROMYCIN ETHYLSUCCINATE 200 MG/5 ML SUSP 100 ML BOTTLE PO SCH ×3 (05:27→22:14)
[2017-05-22] MEDS: ARTIFICIAL TEARS OPTH SOLN 15 ML BTL EACH EYE SCH ×3 (05:27→22:13)
[2017-05-22] MEDS: METOCLOPRAMIDE HCL 10 MG/2 ML VIAL IV PUSH SCH ×3 (05:27→22:14)
[2017-05-22 05:52] LABS: AUTOMATED NEUTROPHIL # 14.7 TH/MM3 (1.8-7.7); BASOPHIL % 0.1 % (0.0-2.0); HEMATOCRIT 22.5 % (39.0-51.0); HEMO FLAGS DIFF FINAL; LYMPH % 3.6 % (9.0-44.0); LYMPHOCYTE # 0.6 TH/MM3 (1.0-4.8); MEAN CELL VOLUME 104.6 FL (80.0-100.0); MEAN CORPUSCULAR HEMOGLOBIN 34.7 PG (27.0-34.0); MEAN CORPUSCULAR HGB CONC 33.2 % (32.0-36.0); MONO % 5.9 % (0.0-8.0); NEUT % 90.4 % (16.0-70.0); PLATELET COUNT 144 TH/MM3 (150-450); RED BLOOD COUNT 2.15 MIL/MM3 (4.50-5.90); RED CELL DISTRIBUTION WIDTH 24.7 % (11.6-17.2); WHITE BLOOD COUNT 16.2 TH/MM3 (4.0-11.0)
[2017-05-22] MEDS: metroNIDAZOLE 500 MG INJ 100 ML IV SCH ×3 (06:00→22:14)
--- NOTE | 2017-05-22 06:09 | RADRPT ---
EXAM DATE/TIME: 05/22/2017 04:27 [facility] COMPARISON: CHEST SINGLE AP, May 21, 2017, 4:25. INDICATIONS : Short of breath. MEDICAL HISTORY : Chronic obstructive pulmonary disease. Seizures SURGICAL HISTORY : None. ENCOUNTER: Subsequent ACUITY: 2 weeks PAIN SCORE: 0/10 LOCATION: Bilateral chest FINDINGS: The cardiac silhouette is enlarged in transverse diameter. Support lines and tubes are in satisfactor y position. There is left lower lobe atelectasis versus pneumonia. There is prominence of the central pulmonary vasculature with indistinct vascular margins compatible with vascular congestion but no ev idence of overt failure. CONCLUSION: 1. Cardiomegaly and findings of vascular congestion without overt failure. There has been no signific ant change when compared to the prior exam. Fabrizio Odom MD on May 22, 2017 at 6:07 Board Certified Radiologist. This report was verified electronically.
[2017-05-22 06:15] LABS: ANION GAP 9 MEQ/L (5-15); AST (GOT) 37 U/L (15-37); BICARBONATE 25.1 MEQ/L (21.0-32.0); BLOOD UREA NITROGEN 18 MG/DL (7-18); CHLORIDE 111 MEQ/L (98-107); GLOMERULAR FILTRATION RATE 165 ML/MIN (>89); MAGNESIUM 1.4 MG/DL (1.5-2.5); POTASSIUM 3.3 MEQ/L (3.5-5.1); SODIUM (NA) 145 MEQ/L (136-145)
[2017-05-22 06:17] LABS: ALT (GPT) 22 U/L (12-78)
[2017-05-22 06:19] LABS: ALKALINE PHOSPHATASE 87 U/L (45-117); TOTAL BILIRUBIN ADULT 0.9 MG/DL (0.2-1.0)
[2017-05-22] MEDS: RESP: BUDESONIDE 0.5 MG/2 ML NEB NEB SCH ×2 (07:29→20:00)
[2017-05-22] MEDS: PANTOPRAZOLE SODIUM 40 MG VIAL IV PUSH SCH (08:02)
[2017-05-22] MEDS: SODIUM CHLORIDE 0.9% FLUSH 10 ML FLUSH IV FLUSH SCH (08:08)
[2017-05-22] MEDS: GABAPENTIN 300 MG CAP PO SCH ×3 (08:08→17:58)
[2017-05-22] MEDS: POTASSIUM CHLOR 20 MEQ PREMIX 100 ML IV PRN ×2 (08:13→12:40)
[2017-05-22] MEDS: TIOTROPIUM BROMIDE 18 MCG INH INH SCH (08:23)
[2017-05-22] MEDS: BUMETANIDE INJ 100 ML IV SCH (08:50)
[2017-05-22] MEDS: CHLORHEXIDINE 0.12% (ORAL KIT) 15 ML CUP MT SCH ×2 (08:53→22:13)
[2017-05-22] MEDS: REMOVE OLD PATCH T-DERMAL SCH (09:00)
[2017-05-22] MEDS: NICOTINE 14 MG/24 HR PATCH T-DERMAL SCH (09:00)
[2017-05-22] MEDS: SODIUM CHLORIDE 0.9% FLUSH 10 ML FLUSH IVF SCH (09:00)
--- NOTE | 2017-05-22 09:11 | HHI.CCPN ---
Subjective Remarks/Hospital Course 61yM with h/o prior hepatic encephalopathy, etoh abuse, tobacco abuse, now admitted with weakness, fever, chills, worsening hypotension. called by hospitalist service overnight for clinical decline despite ivf resuscitation. Patient does complain of flank pain, but denies chest pain, abdominal pain. u/a +. started earlier on vanc/zosyn. has not voided. becoming worseningly agitated. unable to provide any additional information due to altered mental status. 04/28: Chart reviewed. Patient still quite agitated stating "I have to pee" patient has a Young catheter. Complaining of flank pain. Noted renal ultrasound negative. Currently on norepinephrine at 12 mg per minute. 04/29: Resting in bed in no acute distress. Currently on norepinephrine at 7 per minute for vasopressor support. Transfuse 2 units PRBC and 2 pack platelets overnight. Dilutional. Absolutely no signs of active bleeding. 04/30 Patient is sedated with Fentanyl and intubated. On Levophed 5 mics. Afebrile. For EGD today. 05/01 No events overnight. Sedated and intubated. On Levophed 4 mics. s/p EGD yesterday with shoed esophagitis, gastritis, food impaction in distal esophagus removed. 05/02: Afebrile. Off all vasopressors. NG tube advanced by IR yesterday. Feeding to be initiated today. Currently on fentanyl drip 05/03: Remains intubated sedated and not following commands remains on fentanyl infusion. Attempt CPAP trial if patient wakeful enough. Urine output minimal only 300 mL in 24 hours. Will give albumin and Bumex 05/04 Patient is sedated with Fentanyl and intubated. Afebrile. 05/05 Patient was self extubated last night. For possible decompressive colonoscopy today. Afebrile. 05/06 Patient is on 3L oxygen for decompressive colonoscopy today. On Precedex drip for agitation. CT abdomen/pelvis last night showed development of gaseous distention of the right and transverse colon with abrupt change in luminal dimension at the splenic flexure. There is a rectal tube in place and cannot differentiate between a focal obstruction/stricture versus decompression from the rectal tube. 05/07 Patient s/p decompressive colonoscopy last night KUB this morning showed decreased colonic distention. On 4L oxygen. 05/08 Patient was unresponsive on BIPAP this morning and was in resp distress he was subsequently intubated and placed on mechanical ventilation. CXR post intubation showed complete opacification of left hemithorax likely 2nd mucous plug 05/09 Patient is sedated with Fentanyl and intubated. Afebrile. 05/10 Patient remains sedated and intubated. Afebrile. Tolerating tube feeds 05/11: Tolerated PSV trials 3 hours today. Not tolerating tube feeding currently. KUB pending. Positive BM. Decreased urine output noted. 05/12: Lasted 1 hour on PSV trials today. Currently vomiting will be decompressed from above and below per GI today. Afebrile. Central line placed due to persistent hypotension 05/13: Permission from mother for bronchoscopy today for diagnosis left lower lobe on CAT scan of min/pelvis yesterday. Sample sent. Currently on linezolid , cefepime and Flagyl per infectious disease. 05/14: Patient remains intubated sedated, on sedation hold do not follow commands , but moving extremities. Initially intubated 04/28, self extubated 05/05, Re intubated for mucus plugging, AMS on 05/07 night. Combined vent day , mental status will not permit extubation. Copious yellow ETT secretions. 05/15: Gets agitated on CPAP. But intermittently follows commands. Good oxygen saturation. Chest x-ray shows improved aeration. Moderate secretions from ET tube but good cough. Will proceed with extubation. Remains full code 05/16: Patient was extubated yesterday but failed in about 1 hour due to stridor and tachypnea. Today off sedation mentation seems to be improved, tolerates CPAP with high settings but has bilateral crackles and coarse rhonchi. Family (son and daughter) starting in from [place]. Will be here tomorrow 05/17/17 and request the patient to be left intubated until they get here 05/17: Patient is more awake alert and appropriate in communicating even though on low-dose propofol and intubated. Waiting for family to arrive from [place] tonight. Possible weaning to extubation tomorrow 05/18: Awake alert following command on vent. Palliative care is meeting with family today. Once decision re: goals of care are made, most likely proceed with extubation 05/19: Patient was extubated yesterday and there myself under palliative care nurse practitioner Adalgisa Ellington had a detailed discussion with the patient. After talking to the family patient decided he wants to be full code and wants a tracheostomy and PEG tube done since this is his fourth reintubation. Currently intubated sedated tracheostomy today 05/20: Status post tracheostomy yesterday 05/19/17. Based on CPAP tolerating well now. We'll attempt T piece today. Discontinue Versed use propofol as needed. Labs pending 05/21: Remains intubated sedated. Tolerated CPAP 3 hours yesterday. Remains significantly fluid positive at least 2 KG since admission. Significant anasarca. Start on Bumex infusion. Chest x-ray shows fluid overload/pulmonary edema 05/22: Excellent diuresis with Bumex gtt. 6.8L in 24 hours and wt down by 5 kg, still kg up from admission weight. Tolerating TP. Possible PEG today Objective Vital Signs Date Time Temp Pulse Resp B/P (MAP) Pulse Ox O2 Delivery O2 Flow Rate FiO2 05/22/17 07:29 96 T-piece 5.00 28 05/22/17 06:00 104 05/22/17 04:00 98.6 23 141/93 (109) Intake and Output 05/22/17 05/22/17 05/23/17 08:00 16:00 00:00 Intake Total 259 ml Output Total 6350 ml Balance -6091 ml Result Diagram: 05/22/17 0530 05/22/17 0530 Imaging Last Impressions Chest X-Ray 05/13/17 0000 Signed Impressions: Service Date/Time: Saturday, May 13, 2017 13:22 - CONCLUSION: Stable chest appearance. Nasogastric tube in the distal esophagus Olu Rodriguez MD Abdomen/Pelvis CT 05/12/17 0000 Signed Impressions: Service Date/Time: Friday, May 12, 2017 17:56 - CONCLUSION: 1. Left lower lobe collapse and lingular consolidation. Endobronchial soft tissue within the left lower lobe, Mass versus mucus plugging are differential diagnostic considerations. 2. Body wall edema and ascites. 3. Nonobstructing right renal calculus. 4. Colitis with abnormal bowel wall thickening involving the ascending colon, and diffuse small bowel dilatation characteristic of an ileus. Ray Finney MD Abdomen X-Ray 05/12/17 0000 Signed Impressions: Service Date/Time: Friday, May 12, 2017 06:36 - CONCLUSION: 1. Reinsertion of the rectal tube which is coiled within the rectal vault. It may be kinked and not draining well. 2. Persistent gaseous distention of the colon although a slight decrease in the volume of gas. 3. New mildly dilated gas-filled loops of small bowel. Rogerio Harris Jr., MD Chest Ultrasound 05/08/17 Signed Impressions: Service Date/Time: Monday, May 08, 2017 13:01 - CONCLUSION: 1. There is a small left pleural effusion with insufficient volume for thoracentesis at this time. Ronaldo Howell MD Abdomen Fluoroscopy 05/01/17 Signed Impressions: Service Date/Time: Monday, May 01, 2017 13:13 - CONCLUSION: Uncomplicated nasogastric tube placement as above. Zain Kumar MD Lower Extremity Ultrasound 04/28/17 Signed Impressions: Service Date/Time: Friday, April 28, 2017 16:47 - CONCLUSION: Negative exam with no evidence of deep venous thrombosis. Johnathon White MD Chest CT 04/28/17 Signed Impressions: Service Date/Time: Friday, April 28, 2017 11:03 - CONCLUSION: 1. Small bilateral pleural effusions with atelectasis in both lower lobes. There is also a focal area of groundglass opacity in the lingula that is nonspecific but could represent an infectious or inflammatory process. 2. Moderate size hiatal hernia with dilated and fluid-filled esophagus suggesting gastroesophageal reflux. The nasogastric tube distal tip is in the distal esophagus and should ideally be advanced into the stomach. Olu Triana MD Head CT 04/27/17 1017 Signed Impressions: Service Date/Time: Thursday, April 27, 2017 11:00 - CONCLUSION: 1. No acute intracranial abnormality. 2. Complete opacification left maxillary sinus. Keagan Shipman MD Renal Ultrasound 04/27/17 0000 Signed Impressions: Service Date/Time: Thursday, April 27, 2017 23:50 - CONCLUSION: Negative renal sonogram. Rogerio Gunn MD Objective Remarks GENERAL: 61 year old male tolerating TP SKIN: Warm and dry. No rash HEAD: Normocephalic. EYES: No scleral icterus. Pupils are round 3 mm bilaterally and reactive ENT: Oral cavity is dry NECK: Supple, trachea midline. No JVD or lymphadenopathy. New trach in place with no significant bleeding CARDIOVASCULAR: RRR. S1, S2 no S4 without murmur RESPIRATORY: Breath sounds equal bilaterally. No accessory muscle use. Basilar crackles improved GASTROINTESTINAL: No guarding. No rigidity. Hypoactive bowel sounds appreciated throughout. MSK: There is significant anasarca and pitting edema NEURO: Awake alert on the vent, follows commands moves all extremities Date of Insertion: Apr 28, 2017 Line: Central Venous Catheter Side: Right Location: Femoral A/P Assessment and Plan Neuro/Psych: Acute encephalopathy likely secondary to EtOH withdrawal/sepsis/hyperammonemia Alcohol dependence Off all continuos sedation. RASS -0. Thiamine, folate and multivitamin daily CT brain 04/27 revealed left maxillary sinusitis otherwise no acute intra- cranial findings Patient does have a history of EtOH withdrawal seizures. Seizure precautions CV: Severe sepsis -improving Lactic acidosis- cleared Fluid overload Monitor HR and BP keep MAP>65mmHg 05/21 started Bumex infusion at 0.5 mg per hour, continue another 24 hours Patient is fluid overloaded at least 12-13 KG since admission, now down by 5 KG Resp: Respiratory failure- intubated 04/28, self extubated 05/05 reintubated 05/08. Extubated again on 05/15 and 05/18 with re intubation s/p Perc Trach 05/19/17 COPD exacerbation Ongoing tobaccoism s/p Perc Trach 05/19/17. (Skyla Raines/Ken) Patient wanted full code including tracheostomy and PEG tube placement. Decadron 4 mg 4 doses completed. Currently on IV Solu-Medrol since 05/18/17 reduce to 40 q12. Add inhaled budesonide Albuterol/ipratropium aerosols every 6 hours and albuterol aerosols every 2 hours. PRN TP today 4-6 hours s/p Bronch with BAL 05/08: Thick secretions/mucous plug left main stem bronchus suctioned to clear CXR post bronch showed improved aeration left lung. Mucous plugging left lower lobe on CAT scan 05/12. s/p bronchoscopy 05/13 with removal of mucous plug. Nicotine patch 14 mg daily. GI: Hyperammonemia Colonic Ileus, small bowel ileus Elevated AST Hypoalbuminemia- mild protein calorie malnutrition Hiatal hernia Sigmoid diverticulosis Hepatic steatosis Ileus improving clinically and on KUB, tube feeds restarted by GI. Having bowel movements PEG today CT abdomen/pelvis 05/12 revealed thickening ascending colon/small bowel dilatation/ileus. KUB 15 interval improvement in ileus KUB 05/18: Worsening ileus KUB 05/14 Improving bowel distention KUB 05/09: Mild improvements in bowel gas pattern. KUB 05/07: Decreased colonic distention KUB abdomen 05/04 showed severe ileus, cecum dilated to 10 cm s/p decompressive colonoscopy 05/06: Stool throughout the colon, Decompression colon tube was placed 05/05 CT abdomen/pelvis: Gaseous distention of the right and transverse colon with abrupt change in luminal dimension at the splenic flexure. Rectal tube in place and cannot differentiate between a focal obstruction/stricture versus decompression from the rectal tube. s/p EGD 04/30: Esophagitis, gastritis, food impaction in distal esophagus removed. Pantoprazole for GI prophylaxis. Docusate sodium/senna 1 tablet twice a day for bowel regimen. Continue Reglan : Right kidney nonobstructing stone 3 mm Renal ultrasound revealed no hydronephrosis Monitor renal function, I/O's, electrolytes replacement per protocol. Bumex infusion as above Endo: Hypokalemia hypomagnesemia Sliding-scale insulin to maintain euglycemia with Accu-Cheks every 6 hours with low regimen with Novolin R Electrolyte Replacement per protocol Heme: Leukocytosis Macrocytic anemia Patient was transfused 2 pack platelets and 2 PRBC 04/28. Follow CBC daily. Monitor trends. ID: Possible C. difficile colitis Aspiration pneumonia, E Coli in sputum Per infectious disease on cefepime and metronidazole. Linezolid DCd 05/16/17 s/p Zosyn 04/27- onitor for signs of infections ( Fever, WBC) Afebrile, Follow up on BAL results 05/09 and 05/13- NGTD. Sputum E Coli-S to cefepime Blood cultures 2 -04/27 -no growth to date Urine culture - 04/27 -50 - 100,000 mixed gram-positive Sputum 04/28- normal resp andrea Urine pneumococcal and Legionella antigens negative MSK: PT evaluate and treat. Up to chair Access -RIJ CVL placed 05/12 Prophylaxis - GI - pantoprazole - DVT - SCD/ Heparin SQ , Level 2 Full code now. s/p trach 05/19/17. Tolerating TP today Esteban Raines MD May 22, 2017 09:11
[2017-05-22] MEDS: cefTRIAXone INJ 2,000 MG in SODIUM CHLORIDE 0.9% INJ 100 ML IV SCH (10:50)
--- NOTE | 2017-05-22 14:23 | HHI.IDPN ---
Subjective Subjective Remarks ID COVERAGE Chart reviewed is a 61y CM with PMHx of ETOH abuse, prior hepatic encephalopathy, chronic alcoholism, ETOH withdrawal seizures who presented with weakness, dizziness, and having a fall and not being able to get up, per EMR admitted . Since admission, has had complicated hospital course, has been reintubated at least 4x, ans subsequently underwent tracheostomy 05/19. ALso has had problems with abdominal distension, N/V, has had at least 2 decompressive colonoscopies, last one showing findings suggestive of either ischemic colitis or PMC. Notes reviewed D/W RN Awake and responding On CPAP For PEG placement Had excellent diuresis last 24 hours Temps ok HAs loose stool Patient currently awake and alert Central line removed, has PIV Has erwin cath in place Has full code status Antibiotics Cefepime IV Flagyl IV I attest I obtained, reviewed or updated the home meds and current meds (for name, dose, freq and route). Current Medications Medications (Trade) Dose Ordered Sig/Brenda Route Start Time Stop Time Status Last Admin (Neurontin) 300 mg TID PO 04/27/17 13:00 Future hold 05/21/17 09:00 (Tylenol) 650 mg Q4H PRN PO 04/27/17 12:30 05/21/17 03:20 (Compazine Supp) 25 mg Q12H PRN RECTAL 04/27/17 12:30 (Narcan Inj) 0.4 mg UNSCH PRN IV PUSH 04/27/17 12:30 (Beena-Colace) 1 tab BID PO 04/27/17 21:00 Future hold 05/21/17 09:00 (Milk Of Magnesia Liq) 30 ml Q12H PRN PO 04/27/17 12:30 (Senokot) 17.2 mg Q12H PRN PO 04/27/17 12:30 (Dulcolax Supp) 10 mg DAILY PRN RECTAL 04/27/17 12:30 (Xifaxan) 550 mg BID PO 04/27/17 21:00 05/21/17 09:00 (Catapres) 0.1 mg Q6H PRN PO 04/27/17 12:30 (Habitrol 14 Mg Patch.24 Hr) 1 patch DAILY T-DERMAL 04/28/17 09:00 05/20/17 09:02 Miscellaneous Information 1 DAILY T-DERMAL 04/28/17 09:00 05/21/17 09:31 Miscellaneous Information Patient in critical care unit? Ass... [id number] .XX 04/27/17 17:30 Potassium Chloride 100 ml @ 50 mls/hr Q2H PRN IV 04/28/17 07:15 05/21/17 06:33 Potassium Chloride 100 ml @ 50 mls/hr Q2H PRN IV 04/28/17 07:15 05/18/17 18:51 (K-Lyte Cl Eff) 50 meq UNSCH PRN PO 04/28/17 07:15 Potassium Chloride 100 ml @ 25 mls/hr UNSCH PRN IV 04/28/17 07:15 05/21/17 08:58 Potassium Chloride 100 ml @ 50 mls/hr Q2H PRN IV 04/28/17 07:15 05/18/17 10:48 Magnesium Sulfate 4 gm/Sodium Chloride 100 ml @ 50 mls/hr UNSCH PRN IV 04/28/17 07:15 (Mag-Ox) 800 mg UNSCH PRN PO 04/28/17 07:15 Magnesium Sulfate 2 gm/Sodium Chloride 100 ml @ 50 mls/hr UNSCH PRN IV 04/28/17 07:15 05/20/17 03:33 (K-Phos) 2,000 mg Q4H PRN PO 04/28/17 07:15 Sodium Phosphate 30 mmol/Sodium Chloride 250 ml @ 42 mls/hr UNSCH PRN IV 04/28/17 07:15 05/10/17 10:31 (K-Phos) 2,000 mg UNSCH PRN PO/TUBE 04/28/17 07:15 Potassium Phosphate 30 mmol/ Sodium Chloride 260 ml @ 42 mls/hr UNSCH PRN IV 04/28/17 07:15 (Peridex 0.12% Liq) 15 ml BID@08,20 MT 04/28/17 20:00 05/20/17 09:03 (Tears Naturale Opth Soln) 1 drop Q8HR EACH EYE 04/28/17 14:00 05/21/17 06:00 (Protonix Inj) 40 mg DAILY IV PUSH 04/28/17 09:30 05/21/17 09:00 (NS Flush) DAILY IVF 04/29/17 15:45 05/21/17 09:03 (NS Flush) UNSCH PRN IVF 04/29/17 15:45 05/17/17 08:12 (Vitamin B1) 100 mg DAILY PO 04/30/17 09:15 05/21/17 09:00 (Theragran) 1 tab DAILY PO 04/30/17 09:15 05/21/17 09:00 (Folate) 1 mg DAILY PO 04/30/17 09:15 05/21/17 09:14 (Heparin Inj) 5,000 units Q12HR SQ 05/08/17 21:00 Future Hold 05/18/17 09:48 (Albuterol Neb) 2.5 mg Q2HR NEB PRN NEB 05/11/17 13:45 (Albumin 5% Inj) 25 gm Q12H IV 05/11/17 14:00 05/22/17 13:59 05/21/17 03:21 (Reglan Inj) 10 mg Q8HR IV PUSH 05/12/17 14:00 05/21/17 06:27 (NS Flush) DAILY IV FLUSH 05/13/17 09:00 05/21/17 09:01 (NS Flush) UNSCH PRN IV FLUSH 05/12/17 14:30 05/20/17 13:12 (Brethine Inj) 1 mg UNSCH PRN SQ 05/12/17 14:30 Cefepime HCl 2000 mg/Sodium Chloride 100 ml @ 200 mls/hr Q12H IV 05/13/17 12:00 05/21/17 00:33 Metronidazole 100 ml @ 100 mls/hr Q8H IV 05/16/17 15:00 05/21/17 06:26 (Duoneb Neb) 1 ampule Q4HR NEB NEB 05/18/17 20:00 05/21/17 08:43 (Symbicort 160-4.5 Inh) 2 puff Q12H INH 05/18/17 18:00 05/20/17 17:01 (Spiriva Inh) 18 mcg DAILY INH 05/18/17 18:00 (Cathflo Activase Inj) 2 mg Q2H PRN INTRACATH 05/19/17 21:45 05/19/17 22:09 (Lactulose Liq) 30 ml BID PO 05/20/17 21:00 05/21/17 09:00 (Ees 200 Mg/5 ml Liq) 100 mg Q8HR PO 05/20/17 14:00 05/21/17 06:00 (Miralax) 17 gm DAILY PO 05/20/17 10:15 05/21/17 09:00 Bumetanide 100 ml @ 2 mls/hr Q24H IV 05/21/17 07:41 (K-Lyte Cl Eff) 25 meq Q12H PO 05/21/17 09:00 05/21/17 09:14 (SoluMEDROL INJ) 40 mg Q12H IV PUSH 05/21/17 13:00 (Pulmicort Respule Neb) 0.5 mg Q12HR NEB NEB 05/21/17 08:00 Lines Line sites with no e.o infection Past Medical History COPD and tobacco abuse Alcohol abuse History of alcohol withdrawal seizures Tonsillectomy Allergies: Coded Allergies: No Known Allergies (Verified Allergy, Unknown, 04/27/17) Uncoded Allergies: STEROIDS (Allergy, Unknown, 07/13/14) Objective . Vital Signs Date Time Temp Pulse Resp B/P (MAP) Pulse Ox O2 Delivery O2 Flow Rate FiO2 05/22/17 12:07 100 40 05/22/17 12:00 98.8 107 28 132/89 (103) 92 05/22/17 12:00 107 05/22/17 10:00 104 05/22/17 08:00 98.7 102 25 118/83 (95) 88 05/22/17 08:00 102 05/22/17 07:29 96 T-piece 5.00 28 05/22/17 06:00 104 05/22/17 04:00 98.6 101 23 141/93 (109) 100 05/22/17 04:00 101 05/22/17 03:35 100 40 05/22/17 02:00 107 05/22/17 00:00 98 05/22/17 00:00 98.9 98 21 135/89 (104) 100 05/21/17 23:17 100 40 05/21/17 22:00 95 05/21/17 20:55 99 Ventilator 05/21/17 20:00 98.2 89 23 130/82 (98) 100 05/21/17 20:00 89 05/21/17 19:46 99 40 05/21/17 16:00 98.5 91 19 133/92 (106) 100 05/21/17 16:00 91 05/21/17 15:49 100 40 05/22/17 05/22/17 05/23/17 15:00 23:00 07:00 Intake Total 200 ml Output Total 3500 ml Balance -3300 ml IV Total 200 ml Output Urine Total 3500 ml . Laboratory Tests Test 05/21/17 04:05 05/22/17 05:30 White Blood Count 16.6 TH/MM3 16.2 TH/MM3 Red Blood Count 2.18 MIL/MM3 2.15 MIL/MM3 Hemoglobin 7.4 GM/DL 7.5 GM/DL Hematocrit 22.7 % 22.5 % Mean Corpuscular Volume 104.1 FL 104.6 FL Mean Corpuscular Hemoglobin 33.8 PG 34.7 PG Mean Corpuscular Hemoglobin Concent 32.5 % 33.2 % Red Cell Distribution Width 24.7 % 24.7 % Platelet Count 179 TH/MM3 144 TH/MM3 Mean Platelet Volume 9.0 FL 8.9 FL Neutrophils (%) (Auto) 82.8 % 90.4 % Lymphocytes (%) (Auto) 6.1 % 3.6 % Monocytes (%) (Auto) 11.0 % 5.9 % Eosinophils (%) (Auto) 0.0 % 0.0 % Basophils (%) (Auto) 0.1 % 0.1 % Neutrophils # (Auto) 13.8 TH/MM3 14.7 TH/MM3 Lymphocytes # (Auto) 1.0 TH/MM3 0.6 TH/MM3 Monocytes # (Auto) 1.8 TH/MM3 1.0 TH/MM3 Eosinophils # (Auto) 0.0 TH/MM3 0.0 TH/MM3 Basophils # (Auto) 0.0 TH/MM3 0.0 TH/MM3 CBC Comment DIFF FINAL DIFF FINAL Differential Comment Laboratory Tests Test 05/20/17 20:30 05/21/17 04:05 05/22/17 05:30 Potassium Level 3.2 MEQ/L 3.3 MEQ/L 3.3 MEQ/L Blood Urea Nitrogen 21 MG/DL 18 MG/DL Creatinine 0.57 MG/DL 0.51 MG/DL Random Glucose 111 MG/DL 133 MG/DL Total Protein 5.8 GM/DL 6.3 GM/DL Albumin 3.4 GM/DL 3.8 GM/DL Calcium Level 8.4 MG/DL 9.0 MG/DL Alkaline Phosphatase 85 U/L 87 U/L Aspartate Amino Transf (AST/SGOT) 24 U/L 37 U/L Alanine Aminotransferase (ALT/SGPT) 15 U/L 22 U/L Total Bilirubin 0.7 MG/DL 0.9 MG/DL Sodium Level 146 MEQ/L 145 MEQ/L Chloride Level 112 MEQ/L 111 MEQ/L Carbon Dioxide Level 24.7 MEQ/L 25.1 MEQ/L Anion Gap 9 MEQ/L 9 MEQ/L Estimat Glomerular Filtration Rate 145 ML/MIN 165 ML/MIN Magnesium Level 1.4 MG/DL Imaging Chest X-Ray 05/21/17 0600 Signed Impressions: Service Date/Time: Sunday, May 21, 2017 04:25 - CONCLUSION: 1. Cardiomegaly. Patchy alveolar disease characteristic of edema or pneumonia. There has been no significant change when compared to the prior exam. Fabrizio Odom MD Abdomen X-Ray 05/20/17 0600 Signed Impressions: Service Date/Time: Saturday, May 20, 2017 03:20 - CONCLUSION: 1. Dilatation of the transverse colon. Significant air filled small bowel is not seen. On the prior exam, the small bowel was prominent. 2. Hazy densities in the abdomen which may suggest ascites. 3. Left lower lobe consolidation or atelectasis. Olu Herrera MD Abdomen/Pelvis CT 05/12/17 0000 Signed Impressions: Service Date/Time: Friday, May 12, 2017 17:56 - CONCLUSION: 1. Left lower lobe collapse and lingular consolidation. Endobronchial soft tissue within the left lower lobe, Mass versus mucus plugging are differential diagnostic considerations. 2. Body wall edema and ascites. 3. Nonobstructing right renal calculus. 4. Colitis with abnormal bowel wall thickening involving the ascending colon, and diffuse small bowel dilatation characteristic of an ileus. Ray Finney MD Chest Ultrasound 05/08/17 0000 Signed Impressions: Service Date/Time: Monday, May 08, 2017 13:01 - CONCLUSION: 1. There is a small left pleural effusion with insufficient volume for thoracentesis at this time. Ronaldo Howell MD Abdomen Fluoroscopy 05/01/17 0000 Signed Impressions: Service Date/Time: Monday, May 01, 2017 13:13 - CONCLUSION: Uncomplicated nasogastric tube placement as above. Zain Kumar MD Lower Extremity Ultrasound 04/28/17 0000 Signed Impressions: Service Date/Time: Friday, April 28, 2017 16:47 - CONCLUSION: Negative exam with no evidence of deep venous thrombosis. Johnathon White MD Chest CT 04/28/17 0000 Signed Impressions: Service Date/Time: Friday, April 28, 2017 11:03 - CONCLUSION: 1. Small bilateral pleural effusions with atelectasis in both lower lobes. There is also a focal area of groundglass opacity in the lingula that is nonspecific but could represent an infectious or inflammatory process. 2. Moderate size hiatal hernia with dilated and fluid-filled esophagus suggesting gastroesophageal reflux. The nasogastric tube distal tip is in the distal esophagus and should ideally be advanced into the stomach. Olu Triana MD Head CT 04/27/17 1017 Signed Impressions: Service Date/Time: Thursday, April 27, 2017 11:00 - CONCLUSION: 1. No acute intracranial abnormality. 2. Complete opacification left maxillary sinus. Keagan Shipman MD Renal Ultrasound 04/27/17 0000 Signed Impressions: Service Date/Time: Thursday, April 27, 2017 23:50 - CONCLUSION: Negative renal sonogram. Rogerio Gunn MD Chest X-Ray 05/12/17 0600 Signed Impressions: Service Date/Time: Friday, May 12, 2017 03:49 - CONCLUSION: Upper lobe infiltrate with unchanged left lower lobe infiltrate. Rogerio Harris Jr., MD Abdomen/Pelvis CT 05/12/17 0000 Signed Impressions: Service Date/Time: Friday, May 12, 2017 17:56 - CONCLUSION: 1. Left lower lobe collapse and lingular consolidation. Endobronchial soft tissue within the left lower lobe, Mass versus mucus plugging are differential diagnostic considerations. 2. Body wall edema and ascites. 3. Nonobstructing right renal calculus. 4. Colitis with abnormal bowel wall thickening involving the ascending colon, and diffuse small bowel dilatation characteristic of an ileus. Ray Finney MD Abdomen X-Ray 05/12/17 0000 Signed Impressions: Service Date/Time: Friday, May 12, 2017 06:36 - CONCLUSION: 1. Reinsertion of the rectal tube which is coiled within the rectal vault. It may be kinked and not draining well. 2. Persistent gaseous distention of the colon although a slight decrease in the volume of gas. 3. New mildly dilated gas-filled loops of small bowel. Rogerio Harris Jr., MD Chest Ultrasound 05/08/17 0000 Signed Impressions: Service Date/Time: Monday, May 08, 2017 13:01 - CONCLUSION: 1. There is a small left pleural effusion with insufficient volume for thoracentesis at this time. Ronaldo Howell MD Abdomen Fluoroscopy 05/01/17 0000 Signed Impressions: Service Date/Time: Monday, May 01, 2017 13:13 - CONCLUSION: Uncomplicated nasogastric tube placement as above. Zain Kumar MD Lower Extremity Ultrasound 04/28/17 0000 Signed Impressions: Service Date/Time: Friday, April 28, 2017 16:47 - CONCLUSION: Negative exam with no evidence of deep venous thrombosis. Johnathon White MD Chest CT 04/28/17 0000 Signed Impressions: Service Date/Time: Friday, April 28, 2017 11:03 - CONCLUSION: 1. Small bilateral pleural effusions with atelectasis in both lower lobes. There is also a focal area of groundglass opacity in the lingula that is nonspecific but could represent an infectious or inflammatory process. 2. Moderate size hiatal hernia with dilated and fluid-filled esophagus suggesting gastroesophageal reflux. The nasogastric tube distal tip is in the distal esophagus and should ideally be advanced into the stomach. Olu Triana MD Head CT 04/27/17 1017 Signed Impressions: Service Date/Time: Thursday, April 27, 2017 11:00 - CONCLUSION: 1. No acute intracranial abnormality. 2. Complete opacification left maxillary sinus. Keagan Shipman MD Renal Ultrasound 04/27/17 0000 Signed Impressions: Service Date/Time: Thursday, April 27, 2017 23:50 - CONCLUSION: Negative renal sonogram. Rogerio Gunn MD Physical Exam GENERAL: Awake and alert, comfortable on CPAP, following all commands SKIN: No rashes. Ecchymoses. Cool and dry. HEAD: Atraumatic. Normocephalic. No temporal or scalp tenderness. EYES: Pupils equal round and reactive. Extraocular motions intact. [place] conjunctiva. No petechia or injection ENT: Nose without bleeding, purulent drainage or septal hematoma. Moist mucosa NECK: Trach site ok. RIJ TLC ok CARDIOVASCULAR: Regular rate and rhythm without murmurs. RESPIRATORY: Clear to auscultation. Breath sounds equal bilaterally. No wheezes , rales, or rhonchi. GASTROINTESTINAL: Abdomen soft, non-tender, slightly distended. (+) BS, not guarding MUSCULOSKELETAL: Extremities without clubbing, cyanosis. Anasarca, Pedal edema 3 +. Edema both UE much improved NEUROLOGICAL: Opens eyes, follows commands, moves all extremities. PSYCH: Calm, and cooperative : Erwin in place, urine looks clear IV line sites with no e.o infection. Assessment & Plan Remarks IMPRESSION Aspiration Pneumonia (vomiting due to Gaseous distention this am) s/p colonic decompression 05/12/17 and other times in this admission. - sputum C/S E coli Ileus S/P decompression - PMC vs ischemic colitis on path report Pseudomembranous colitis (r/o cdiff) COPD exacerbation Alcoholism Cirrhosis of liver. Acute metabolic encephalopathy PLAN Continue Rocephin - give 7 days, end [facility] - sputum C/S with E coli Continue Flagyl IV (anaerobes and Cdiff coverage). Cdiff can be negative with use of barrier cream used in pericare. Needs IV flagyl as pt had N/V and GI issues yday. - if GI issue settled down, change to oral - For PEG placement today Monitor progress Weaning per [facility] D/W Violet Tom MD May 22, 2017 14:23
[2017-05-22] MEDS: POTASSIUM CHLORIDE 25 MEQ EFFERVESCENT TAB PO SCH ×2 (16:19→21:00)
[2017-05-22] MEDS: LACTULOSE SYRUP 20 GM/30 ML CUP PO SCH ×2 (16:19→22:13)
[2017-05-22] MEDS: FOLIC ACID 1 MG TAB PO SCH (16:19)
[2017-05-22] MEDS: DOCUSATE SODIUM 50 MG/SENNA 8.6 MG TAB PO SCH ×2 (16:20→22:13)
[2017-05-22] MEDS: THIAMINE HCL 100 MG TAB PO SCH (16:20)
[2017-05-22] MEDS: MULTIVITAMIN TAB PO SCH (16:20)
[2017-05-22] MEDS: RIFAXIMIN 550 MG TAB PO SCH ×2 (16:20→22:13)
[2017-05-23] VITALS (23 sets, daily range): BP systolic 120–134; BP diastolic 66–85; PULSE 84–105; RESP 16–50; TEMP 98.4–99.1; O2SAT 94–100
--- NOTE | 2017-05-23 00:11 | PD.PROCEDR ---
GI Procedure REFERRING PHYSICIAN Dr. Harris PROCEDURE PERFORMED EGD with PEG placement INDICATION FOR PROCEDURE Respiratory failure, dysphagia PROCEDURE: The procedure, risks and benefits were discussed with Mr. Pittman and informed consent was obtained. Anesthesia sedated him with Diprivan. He was placed in the left lateral decubitus position. EGD: The Pentax videoscope was introduced through the oropharynx and advanced to the second portion of the duodenum under direct visualization. Retroflexion was performed in the stomach. FINDINGS: Esophagus there was mild distal esophageal mucosal erythema otherwise this was unremarkable Stomach there was a small hiatal hernia the gastric mucosa appeared to be somewhat erythemic in a punctate patchy fashion otherwise no ulcerations or erosions The duodenum this was normal Following the evaluation of the stomach and the duodenum the stomach was insufflated with air and the area of PEG placement was identified through indentation and transillumination the area was prepped and draped in usual fashion 5 cc of lidocaine were injected locally a small incision was made then an Angiocath was passed into the stomach through which a guidewire was passed this was retrieved with the scope into that a PEG tube was attached and pulled into place and thereafter secured in usual fashion The patient tolerated procedure well and there are no immediate complications ESTIMATED BLOOD LOSS: None SPECIMENS REMOVED: None COMPLICATIONS: None IMPRESSION: Mild reflux esophagitis Mild gastritis Small hiatal hernia Successful PEG placement PLAN: Recommend PPI Recommend continued supportive care Arnel Ventura MD May 23, 2017 00:11
[2017-05-23] MEDS: methylPREDNISolone SOD SUCC 40 MG/1 ML VIAL IV PUSH SCH ×2 (00:17→12:42)
[2017-05-23 04:06] LABS: HEMATOCRIT 26.1 % (39.0-51.0); MEAN CORPUSCULAR HEMOGLOBIN 34.2 PG (27.0-34.0); MEAN CORPUSCULAR HGB CONC 32.9 % (32.0-36.0); PLATELET COUNT 150 TH/MM3 (150-450); RED BLOOD COUNT 2.51 MIL/MM3 (4.50-5.90); RED CELL DISTRIBUTION WIDTH 24.1 % (11.6-17.2); REVIEW FLAG FINAL; WHITE BLOOD COUNT 19.6 TH/MM3 (4.0-11.0)
[2017-05-23 04:27] LABS: BICARBONATE 32.1 MEQ/L (21.0-32.0); MAGNESIUM 1.1 MG/DL (1.5-2.5); POTASSIUM 3.1 MEQ/L (3.5-5.1)
[2017-05-23] MEDS: ARTIFICIAL TEARS OPTH SOLN 15 ML BTL EACH EYE SCH ×3 (05:28→20:25)
[2017-05-23] MEDS: ERYTHROMYCIN ETHYLSUCCINATE 200 MG/5 ML SUSP 100 ML BOTTLE PO SCH ×3 (05:29→20:25)
[2017-05-23] MEDS: METOCLOPRAMIDE HCL 10 MG/2 ML VIAL IV PUSH SCH ×3 (05:29→20:25)
[2017-05-23] MEDS: POTASSIUM CHLOR 20 MEQ PREMIX 100 ML IV PRN ×5 (05:30→16:44)
[2017-05-23] MEDS: BUDESONIDE-FORMOTEROL 160/4.5 MCG INHALER INH SCH ×2 (05:36→18:00)
[2017-05-23] MEDS: metroNIDAZOLE 500 MG INJ 100 ML IV SCH (06:29)
[2017-05-23] MEDS: CHLORHEXIDINE 0.12% (ORAL KIT) 15 ML CUP MT SCH ×2 (08:00→20:00)
[2017-05-23] MEDS: RESP: BUDESONIDE 0.5 MG/2 ML NEB NEB SCH ×2 (08:46→20:07)
[2017-05-23] MEDS: DOCUSATE SODIUM 50 MG/SENNA 8.6 MG TAB PO SCH ×2 (09:00→20:25)
[2017-05-23] MEDS: NICOTINE 14 MG/24 HR PATCH T-DERMAL SCH (09:00)
[2017-05-23] MEDS: REMOVE OLD PATCH T-DERMAL SCH (09:00)
[2017-05-23] MEDS: SODIUM CHLORIDE 0.9% FLUSH 10 ML FLUSH IVF SCH (09:00)
[2017-05-23] MEDS: BUMETANIDE INJ 1 MG/4 ML VIAL IV PUSH SCH ×2 (09:00→20:24)
[2017-05-23] MEDS: POLYETHYLENE GLYCOL 17 GM PKG PO SCH (09:00)
[2017-05-23] MEDS: TIOTROPIUM BROMIDE 18 MCG INH INH SCH (09:00)
--- NOTE | 2017-05-23 09:36 | HHI.CCPN ---
Subjective Remarks/Hospital Course 61yM with h/o prior hepatic encephalopathy, etoh abuse, tobacco abuse, now admitted with weakness, fever, chills, worsening hypotension. called by hospitalist service overnight for clinical decline despite ivf resuscitation. Patient does complain of flank pain, but denies chest pain, abdominal pain. u/a +. started earlier on vanc/zosyn. has not voided. becoming worseningly agitated. unable to provide any additional information due to altered mental status. 04/28: Chart reviewed. Patient still quite agitated stating "I have to pee" patient has a Young catheter. Complaining of flank pain. Noted renal ultrasound negative. Currently on norepinephrine at 12 mg per minute. 04/29: Resting in bed in no acute distress. Currently on norepinephrine at 7 per minute for vasopressor support. Transfuse 2 units PRBC and 2 pack platelets overnight. Dilutional. Absolutely no signs of active bleeding. 04/30 Patient is sedated with Fentanyl and intubated. On Levophed 5 mics. Afebrile. For EGD today. 05/01 No events overnight. Sedated and intubated. On Levophed 4 mics. s/p EGD yesterday with shoed esophagitis, gastritis, food impaction in distal esophagus removed. 05/02: Afebrile. Off all vasopressors. NG tube advanced by IR yesterday. Feeding to be initiated today. Currently on fentanyl drip 05/03: Remains intubated sedated and not following commands remains on fentanyl infusion. Attempt CPAP trial if patient wakeful enough. Urine output minimal only 300 mL in 24 hours. Will give albumin and Bumex 05/04 Patient is sedated with Fentanyl and intubated. Afebrile. 05/05 Patient was self extubated last night. For possible decompressive colonoscopy today. Afebrile. 05/06 Patient is on 3L oxygen for decompressive colonoscopy today. On Precedex drip for agitation. CT abdomen/pelvis last night showed development of gaseous distention of the right and transverse colon with abrupt change in luminal dimension at the splenic flexure. There is a rectal tube in place and cannot differentiate between a focal obstruction/stricture versus decompression from the rectal tube. 05/07 Patient s/p decompressive colonoscopy last night KUB this morning showed decreased colonic distention. On 4L oxygen. 05/08 Patient was unresponsive on BIPAP this morning and was in resp distress he was subsequently intubated and placed on mechanical ventilation. CXR post intubation showed complete opacification of left hemithorax likely 2nd mucous plug 05/09 Patient is sedated with Fentanyl and intubated. Afebrile. 05/10 Patient remains sedated and intubated. Afebrile. Tolerating tube feeds 05/11: Tolerated PSV trials 3 hours today. Not tolerating tube feeding currently. KUB pending. Positive BM. Decreased urine output noted. 05/12: Lasted 1 hour on PSV trials today. Currently vomiting will be decompressed from above and below per GI today. Afebrile. Central line placed due to persistent hypotension 05/13: Permission from mother for bronchoscopy today for diagnosis left lower lobe on CAT scan of min/pelvis yesterday. Sample sent. Currently on linezolid , cefepime and Flagyl per infectious disease. 05/14: Patient remains intubated sedated, on sedation hold do not follow commands , but moving extremities. Initially intubated 04/28, self extubated 05/05, Re intubated for mucus plugging, AMS on 05/07 night. Combined vent day , mental status will not permit extubation. Copious yellow ETT secretions. 05/15: Gets agitated on CPAP. But intermittently follows commands. Good oxygen saturation. Chest x-ray shows improved aeration. Moderate secretions from ET tube but good cough. Will proceed with extubation. Remains full code 05/16: Patient was extubated yesterday but failed in about 1 hour due to stridor and tachypnea. Today off sedation mentation seems to be improved, tolerates CPAP with high settings but has bilateral crackles and coarse rhonchi. Family (son and daughter) starting in from [place]. Will be here tomorrow 05/17/17 and request the patient to be left intubated until they get here 05/17: Patient is more awake alert and appropriate in communicating even though on low-dose propofol and intubated. Waiting for family to arrive from [place] tonight. Possible weaning to extubation tomorrow 05/18: Awake alert following command on vent. Palliative care is meeting with family today. Once decision re: goals of care are made, most likely proceed with extubation 05/19: Patient was extubated yesterday and there myself under palliative care nurse practitioner Adalgisa Ellington had a detailed discussion with the patient. After talking to the family patient decided he wants to be full code and wants a tracheostomy and PEG tube done since this is his fourth reintubation. Currently intubated sedated tracheostomy today 05/20: Status post tracheostomy yesterday 05/19/17. Based on CPAP tolerating well now. We'll attempt T piece today. Discontinue Versed use propofol as needed. Labs pending 05/21: Remains intubated sedated. Tolerated CPAP 3 hours yesterday. Remains significantly fluid positive at least 2 KG since admission. Significant anasarca. Start on Bumex infusion. Chest x-ray shows fluid overload/pulmonary edema 05/22: Excellent diuresis with Bumex gtt. 6.8L in 24 hours and wt down by 5 kg, still kg up from admission weight. Tolerating TP. Possible PEG today 05/23: Currently patient is on TPs tolerating well. Attempts to talk. Up to stretcher chair today. Urine output more than 10 L on Bumex drip. Change to scheduled Bumex and one dose of Diamox Objective Vital Signs Date Time Temp Pulse Resp B/P (MAP) Pulse Ox O2 Delivery O2 Flow Rate FiO2 05/23/17 08:47 97 T-piece 6.00 40 05/23/17 06:00 85 05/23/17 04:00 98.5 18 130/85 (100) Intake and Output 05/23/17 05/23/17 05/24/17 08:00 16:00 00:00 Intake Total 247 ml 50 ml Output Total 5750 ml Balance -5503 ml 50 ml Result Diagram: 05/23/17 0339 05/23/17 0339 Imaging Last Impressions Chest X-Ray 05/13/17 0000 Signed Impressions: Service Date/Time: Saturday, May 13, 2017 13:22 - CONCLUSION: Stable chest appearance. Nasogastric tube in the distal esophagus Olu Rodriguez MD Abdomen/Pelvis CT 05/12/17 0000 Signed Impressions: Service Date/Time: Friday, May 12, 2017 17:56 - CONCLUSION: 1. Left lower lobe collapse and lingular consolidation. Endobronchial soft tissue within the left lower lobe, Mass versus mucus plugging are differential diagnostic considerations. 2. Body wall edema and ascites. 3. Nonobstructing right renal calculus. 4. Colitis with abnormal bowel wall thickening involving the ascending colon, and diffuse small bowel dilatation characteristic of an ileus. Ray Finney MD Abdomen X-Ray 05/12/17 0000 Signed Impressions: Service Date/Time: Friday, May 12, 2017 06:36 - CONCLUSION: 1. Reinsertion of the rectal tube which is coiled within the rectal vault. It may be kinked and not draining well. 2. Persistent gaseous distention of the colon although a slight decrease in the volume of gas. 3. New mildly dilated gas-filled loops of small bowel. Rogerio Harris Jr., MD Chest Ultrasound 05/08/17 0000 Signed Impressions: Service Date/Time: Monday, May 08, 2017 13:01 - CONCLUSION: 1. There is a small left pleural effusion with insufficient volume for thoracentesis at this time. Ronaldo Howell MD Abdomen Fluoroscopy 05/01/17 0000 Signed Impressions: Service Date/Time: Monday, May 01, 2017 13:13 - CONCLUSION: Uncomplicated nasogastric tube placement as above. Zain Kumar MD Lower Extremity Ultrasound 04/28/17 0000 Signed Impressions: Service Date/Time: Friday, April 28, 2017 16:47 - CONCLUSION: Negative exam with no evidence of deep venous thrombosis. Johnathon White MD Chest CT 04/28/17 0000 Signed Impressions: Service Date/Time: Friday, April 28, 2017 11:03 - CONCLUSION: 1. Small bilateral pleural effusions with atelectasis in both lower lobes. There is also a focal area of groundglass opacity in the lingula that is nonspecific but could represent an infectious or inflammatory process. 2. Moderate size hiatal hernia with dilated and fluid-filled esophagus suggesting gastroesophageal reflux. The nasogastric tube distal tip is in the distal esophagus and should ideally be advanced into the stomach. Olu Triana MD Head CT 04/27/17 1017 Signed Impressions: Service Date/Time: Thursday, April 27, 2017 11:00 - CONCLUSION: 1. No acute intracranial abnormality. 2. Complete opacification left maxillary sinus. Keagan Shipman MD Renal Ultrasound 04/27/17 0000 Signed Impressions: Service Date/Time: Thursday, April 27, 2017 23:50 - CONCLUSION: Negative renal sonogram. Rogerio Gunn MD Objective Remarks GENERAL: 61 year old male tolerating TP SKIN: Warm and dry. No rash HEAD: Normocephalic. EYES: No scleral icterus. Pupils are round 3 mm bilaterally and reactive ENT: Oral cavity is dry NECK: Supple, trachea midline. No JVD or lymphadenopathy. New trach in place with no significant bleeding CARDIOVASCULAR: RRR. S1, S2 no S4 without murmur RESPIRATORY: Breath sounds equal bilaterally. No accessory muscle use. Basilar crackles improved GASTROINTESTINAL: No guarding. No rigidity. Hypoactive bowel sounds appreciated throughout. MSK: Anasarca improved NEURO: Awake alert on the vent, follows commands moves all extremities Date of Insertion: Apr 28, 2017 Line: Central Venous Catheter Side: Right Location: Femoral A/P Assessment and Plan Neuro/Psych: Acute encephalopathy likely secondary to EtOH withdrawal/sepsis/hyperammonemia Alcohol dependence Off all continuos sedation. RASS -0. CT brain 04/27 revealed left maxillary sinusitis otherwise no acute intra- cranial findings Patient does have a history of EtOH withdrawal seizures. Seizure precautions Thiamine, folate and multivitamin daily CV: Severe sepsis-resolving Lactic acidosis- cleared Fluid overload Monitor HR and BP keep MAP>65mmHg 05/21 started Bumex infusion at 0.5 mg per hour, DC today 05/23/17. Currently close to admission weight Colazal scheduled Bumex 1 mg every 12, and Diamox 5 mg IV x1 Resp: Respiratory failure- intubated 04/28, self extubated 05/05 reintubated 05/08. Extubated again on 05/15 and 05/18 with re intubation s/p Perc Trach 05/19/17 COPD exacerbation Ongoing tobaccoism s/p Perc Trach 05/19/17. (Skyla Raines/Ken). Patient wanted full code including tracheostomy and PEG tube placement. Decadron 4 mg 4 doses completed. Currently on IV Solu-Medrol since 05/18/17 reduced to 40 q12. Added inhaled budesonide Albuterol/ipratropium aerosols every 6 hours and albuterol aerosols every 2 hours. PRN TP today up to 12 hours and CPAP at night s/p Bronch with BAL 05/08: Thick secretions/mucous plug left main stem bronchus suctioned to clear CXR post bronch showed improved aeration left lung. Mucous plugging left lower lobe on CAT scan 05/12. s/p bronchoscopy 05/13 with removal of mucous plug. Nicotine patch 14 mg daily. GI: Hyperammonemia Colonic Ileus, small bowel ileus Elevated AST Hypoalbuminemia- mild protein calorie malnutrition Hiatal hernia Sigmoid diverticulosis Hepatic steatosis Ileus improving clinically and on KUB, tube feeds restarted by GI. Having bowel movements PEG 05/22 CT abdomen/pelvis 05/12 revealed thickening ascending colon/small bowel dilatation/ileus. KUB 05/20 interval improvement in ileus KUB 05/18: Worsening ileus KUB 05/14 Improving bowel distention KUB 05/09: Mild improvements in bowel gas pattern. KUB 05/07: Decreased colonic distention KUB abdomen 05/04 showed severe ileus, cecum dilated to 10 cm s/p decompressive colonoscopy 05/06: Stool throughout the colon, Decompression colon tube was placed 05/05 CT abdomen/pelvis: Gaseous distention of the right and transverse colon with abrupt change in luminal dimension at the splenic flexure. Rectal tube in place and cannot differentiate between a focal obstruction/stricture versus decompression from the rectal tube. s/p EGD 04/30: Esophagitis, gastritis, food impaction in distal esophagus removed. Pantoprazole for GI prophylaxis. Docusate sodium/senna 1 tablet twice a day for bowel regimen. Continue Reglan : Right kidney nonobstructing stone 3 mm Renal ultrasound revealed no hydronephrosis Monitor renal function, I/O's, electrolytes replacement per protocol. Bumex as above Endo: Hypokalemia hypomagnesemia Sliding-scale insulin to maintain euglycemia with Accu-Cheks every 6 hours with low regimen with Novolin R Electrolyte Replacement per protocol Heme: Leukocytosis Macrocytic anemia Patient was transfused 2 pack platelets and 2 PRBC 04/28. Follow CBC daily. Monitor trends. ID: Possible C. difficile colitis Aspiration pneumonia, E Coli in sputum Per infectious disease on cefepime and metronidazole. Linezolid DCd 05/16/17 s/p Zosyn 04/27- onitor for signs of infections ( Fever, WBC) Afebrile, Follow up on BAL results 05/09 and 05/13- NGTD. Sputum E Coli-S to cefepime Blood cultures 2 -04/27 -no growth to date Urine culture - 04/27 -50 - 100,000 mixed gram-positive Sputum 04/28- normal resp andrea Urine pneumococcal and Legionella antigens negative MSK: PT evaluate and treat. Up to chair Access -RIJ CVL placed 05/12-DCd Prophylaxis - GI - pantoprazole - DVT - SCD/ Heparin SQ , Level 2 Full code now. s/p trach 05/19/17. Tolerating TP today Esteban Raines MD May 23, 2017 09:36
[2017-05-23] MEDS: POTASSIUM CHLORIDE 25 MEQ EFFERVESCENT TAB PO SCH ×2 (09:51→20:25)
[2017-05-23] MEDS: PANTOPRAZOLE SODIUM 40 MG VIAL IV PUSH SCH (09:51)
[2017-05-23] MEDS: MULTIVITAMIN TAB PO SCH (09:51)
[2017-05-23] MEDS: LACTULOSE SYRUP 20 GM/30 ML CUP PO SCH ×2 (09:51→20:25)
[2017-05-23] MEDS: RIFAXIMIN 550 MG TAB PO SCH ×2 (09:51→20:25)
[2017-05-23] MEDS: THIAMINE HCL 100 MG TAB PO SCH (09:51)
[2017-05-23] MEDS: FOLIC ACID 1 MG TAB PO SCH (09:51)
[2017-05-23] MEDS: GABAPENTIN 300 MG CAP PO SCH ×3 (09:51→18:50)
[2017-05-23] MEDS: SODIUM CHLORIDE 0.9% FLUSH 10 ML FLUSH IV FLUSH SCH (09:52)
[2017-05-23] MEDS: cefTRIAXone INJ 2,000 MG in SODIUM CHLORIDE 0.9% INJ 100 ML IV SCH (09:54)
--- NOTE | 2017-05-23 10:22 | HHI.IDPN ---
Subjective Subjective Remarks ID COVERAGE Chart reviewed is a 61y CM with PMHx of ETOH abuse, prior hepatic encephalopathy, chronic alcoholism, ETOH withdrawal seizures who presented with weakness, dizziness, and having a fall and not being able to get up, per EMR admitted . Since admission, has had complicated hospital course, has been reintubated at least 4x, ans subsequently underwent tracheostomy 05/19. ALso has had problems with abdominal distension, N/V, has had at least 2 decompressive colonoscopies, last one showing findings suggestive of either ischemic colitis or PMC. Notes reviewed D/W RN S/P PEG yesterday On T-piece Had excellent diuresis last 24 hours Temps ok Has loose stool Patient currently awake and alert Central line removed, has PIV Has erwin cath in place Has full code status Antibiotics Ceftriaxone IV Flagyl IV I attest I obtained, reviewed or updated the home meds and current meds (for name, dose, freq and route). Current Medications Medications (Trade) Dose Ordered Sig/Brenda Route Start Time Stop Time Status Last Admin (Neurontin) 300 mg TID PO 04/27/17 13:00 Future hold 05/23/17 09:51 (Tylenol) 650 mg Q4H PRN PO 04/27/17 12:30 05/21/17 03:20 (Compazine Supp) 25 mg Q12H PRN RECTAL 04/27/17 12:30 (Narcan Inj) 0.4 mg UNSCH PRN IV PUSH 04/27/17 12:30 (Beena-Colace) 1 tab BID PO 04/27/17 21:00 Future hold 05/22/17 22:13 (Milk Of Magnesia Liq) 30 ml Q12H PRN PO 04/27/17 12:30 (Senokot) 17.2 mg Q12H PRN PO 04/27/17 12:30 (Dulcolax Supp) 10 mg DAILY PRN RECTAL 04/27/17 12:30 (Xifaxan) 550 mg BID PO 04/27/17 21:00 05/23/17 09:51 (Catapres) 0.1 mg Q6H PRN PO 04/27/17 12:30 (Habitrol 14 Mg Patch.24 Hr) 1 patch DAILY T-DERMAL 04/28/17 09:00 05/20/17 09:02 Miscellaneous Information 1 DAILY T-DERMAL 04/28/17 09:00 05/21/17 09:31 Miscellaneous Information Patient in critical care unit? Ass... [id number] .[id number] 04/27/17 17:30 Potassium Chloride 100 ml @ 50 mls/hr Q2H PRN IV 04/28/17 07:15 05/21/17 06:33 Potassium Chloride 100 ml @ 50 mls/hr Q2H PRN IV 04/28/17 07:15 05/23/17 10:18 (K-Lyte Cl Eff) 50 meq UNSCH PRN PO 04/28/17 07:15 Potassium Chloride 100 ml @ 25 mls/hr UNSCH PRN IV 04/28/17 07:15 05/21/17 08:58 Potassium Chloride 100 ml @ 50 mls/hr Q2H PRN IV 04/28/17 07:15 05/22/17 12:40 Magnesium Sulfate 4 gm/Sodium Chloride 100 ml @ 50 mls/hr UNSCH PRN IV 04/28/17 07:15 05/23/17 05:30 (Mag-Ox) 800 mg UNSCH PRN PO 04/28/17 07:15 Magnesium Sulfate 2 gm/Sodium Chloride 100 ml @ 50 mls/hr UNSCH PRN IV 04/28/17 07:15 05/20/17 03:33 (K-Phos) 2,000 mg Q4H PRN PO 04/28/17 07:15 Sodium Phosphate 30 mmol/Sodium Chloride 250 ml @ 42 mls/hr UNSCH PRN IV 04/28/17 07:15 05/10/17 10:31 (K-Phos) 2,000 mg UNSCH PRN PO/TUBE 04/28/17 07:15 Potassium Phosphate 30 mmol/ Sodium Chloride 260 ml @ 42 mls/hr UNSCH PRN IV 04/28/17 07:15 (Peridex 0.12% Liq) 15 ml BID@08,20 MT 04/28/17 20:00 05/23/17 08:00 (Tears Naturale Opth Soln) 1 drop Q8HR EACH EYE 04/28/17 14:00 05/23/17 05:28 (Protonix Inj) 40 mg DAILY IV PUSH 04/28/17 09:30 05/23/17 09:51 (NS Flush) DAILY IVF 04/29/17 15:45 05/21/17 09:03 (NS Flush) UNSCH PRN IVF 04/29/17 15:45 05/17/17 08:12 (Vitamin B1) 100 mg DAILY PO 04/30/17 09:15 05/23/17 09:51 (Theragran) 1 tab DAILY PO 04/30/17 09:15 05/23/17 09:51 (Folate) 1 mg DAILY PO 04/30/17 09:15 05/23/17 09:51 (Heparin Inj) 5,000 units Q12HR SQ 05/08/17 21:00 Future Hold 05/18/17 09:48 (Albuterol Neb) 2.5 mg Q2HR NEB PRN NEB 05/11/17 13:45 (Reglan Inj) 10 mg Q8HR IV PUSH 05/12/17 14:00 05/23/17 05:29 (NS Flush) DAILY IV FLUSH 05/13/17 09:00 05/23/17 09:52 (NS Flush) UNSCH PRN IV FLUSH 05/12/17 14:30 05/20/17 13:12 (Brethine Inj) 1 mg UNSCH PRN SQ 05/12/17 14:30 (Symbicort 160-4.5 Inh) 2 puff Q12H INH 05/18/17 18:00 05/20/17 17:01 (Spiriva Inh) 18 mcg DAILY INH 05/18/17 18:00 (Cathflo Activase Inj) 2 mg Q2H PRN INTRACATH 05/19/17 21:45 05/19/17 22:09 (Lactulose Liq) 30 ml BID PO 05/20/17 21:00 05/23/17 09:51 (Ees 200 Mg/5 ml Liq) 100 mg Q8HR PO 05/20/17 14:00 05/23/17 05:29 (Miralax) 17 gm DAILY PO 05/20/17 10:15 05/21/17 09:00 (K-Lyte Cl Eff) 25 meq Q12H PO 05/21/17 09:00 05/23/17 09:51 (SoluMEDROL INJ) 40 mg Q12H IV PUSH 05/21/17 13:00 05/23/17 00:17 (Pulmicort Respule Neb) 0.5 mg Q12HR NEB NEB 05/21/17 08:00 05/23/17 08:46 Ceftriaxone Sodium 2000 mg/ Sodium Chloride 100 ml @ 200 mls/hr Q24H IV 05/21/17 10:00 05/28/17 09:59 05/23/17 09:54 (Bumex Inj) 1 mg Q12H IV PUSH 05/23/17 09:00 (Flagyl) 500 mg Q8HR PO 05/23/17 14:00 Lines Line sites with no e.o infection Past Medical History COPD and tobacco abuse Alcohol abuse History of alcohol withdrawal seizures Tonsillectomy Allergies: Coded Allergies: No Known Allergies (Verified Allergy, Unknown, 04/27/17) Uncoded Allergies: STEROIDS (Allergy, Unknown, 07/13/14) Objective . Vital Signs Date Time Temp Pulse Resp B/P (MAP) Pulse Ox O2 Delivery O2 Flow Rate FiO2 05/23/17 08:47 97 T-piece 6.00 40 05/23/17 06:00 85 05/23/17 04:00 86 05/23/17 04:00 40 05/23/17 04:00 98.5 86 18 130/85 (100) 100 05/23/17 02:00 84 05/23/17 00:32 99 Ventilator 05/23/17 00:28 99 40 05/23/17 00:00 40 05/23/17 00:00 84 05/23/17 00:00 98.9 84 18 134/66 (88) 99 05/22/17 22:00 86 05/22/17 20:00 98.7 98 22 127/88 (101) 99 05/22/17 20:00 98 05/22/17 20:00 40 05/22/17 19:37 100 40 05/22/17 18:00 86 05/22/17 16:00 40 05/22/17 16:00 92 05/22/17 16:00 98.8 92 21 136/90 (105) 100 05/22/17 15:01 99 40 05/22/17 14:00 78 05/22/17 12:07 100 40 05/22/17 12:00 98.8 107 28 132/89 (103) 92 05/22/17 12:00 107 05/22/17 12:00 40 05/23/17 05/23/17 05/24/17 14:59 22:59 06:59 Intake Total 250 ml Balance 250 ml IV Total 250 ml . Laboratory Tests Test 05/22/17 05:30 05/23/17 03:39 White Blood Count 16.2 TH/MM3 19.6 TH/MM3 Red Blood Count 2.15 MIL/MM3 2.51 MIL/MM3 Hemoglobin 7.5 GM/DL 8.6 GM/DL Hematocrit 22.5 % 26.1 % Mean Corpuscular Volume 104.6 FL 104.0 FL Mean Corpuscular Hemoglobin 34.7 PG 34.2 PG Mean Corpuscular Hemoglobin Concent 33.2 % 32.9 % Red Cell Distribution Width 24.7 % 24.1 % Platelet Count 144 TH/MM3 150 TH/MM3 Mean Platelet Volume 8.9 FL 9.4 FL Neutrophils (%) (Auto) 90.4 % Lymphocytes (%) (Auto) 3.6 % Monocytes (%) (Auto) 5.9 % Eosinophils (%) (Auto) 0.0 % Basophils (%) (Auto) 0.1 % Neutrophils # (Auto) 14.7 TH/MM3 Lymphocytes # (Auto) 0.6 TH/MM3 Monocytes # (Auto) 1.0 TH/MM3 Eosinophils # (Auto) 0.0 TH/MM3 Basophils # (Auto) 0.0 TH/MM3 CBC Comment DIFF FINAL Differential Comment Laboratory Tests Test 05/22/17 05:30 05/23/17 03:39 Blood Urea Nitrogen 18 MG/DL 20 MG/DL Creatinine 0.51 MG/DL 0.53 MG/DL Random Glucose 133 MG/DL 117 MG/DL Total Protein 6.3 GM/DL Albumin 3.8 GM/DL Calcium Level 9.0 MG/DL 8.6 MG/DL Magnesium Level 1.4 MG/DL 1.1 MG/DL Alkaline Phosphatase 87 U/L Aspartate Amino Transf (AST/SGOT) 37 U/L Alanine Aminotransferase (ALT/SGPT) 22 U/L Total Bilirubin 0.9 MG/DL Sodium Level 145 MEQ/L 146 MEQ/L Potassium Level 3.3 MEQ/L 3.1 MEQ/L Chloride Level 111 MEQ/L 106 MEQ/L Carbon Dioxide Level 25.1 MEQ/L 32.1 MEQ/L Anion Gap 9 MEQ/L 8 MEQ/L Estimat Glomerular Filtration Rate 165 ML/MIN 158 ML/MIN Imaging Chest X-Ray 05/21/17 0600 Signed Impressions: Service Date/Time: Sunday, May 21, 2017 04:25 - CONCLUSION: 1. Cardiomegaly. Patchy alveolar disease characteristic of edema or pneumonia. There has been no significant change when compared to the prior exam. Fabrizio Odom MD Abdomen X-Ray 05/20/17 0600 Signed Impressions: Service Date/Time: Saturday, May 20, 2017 03:20 - CONCLUSION: 1. Dilatation of the transverse colon. Significant air filled small bowel is not seen. On the prior exam, the small bowel was prominent. 2. Hazy densities in the abdomen which may suggest ascites. 3. Left lower lobe consolidation or atelectasis. Olu Herrera MD Abdomen/Pelvis CT 05/12/17 0000 Signed Impressions: Service Date/Time: Friday, May 12, 2017 17:56 - CONCLUSION: 1. Left lower lobe collapse and lingular consolidation. Endobronchial soft tissue within the left lower lobe, Mass versus mucus plugging are differential diagnostic considerations. 2. Body wall edema and ascites. 3. Nonobstructing right renal calculus. 4. Colitis with abnormal bowel wall thickening involving the ascending colon, and diffuse small bowel dilatation characteristic of an ileus. Ray Finney MD Chest Ultrasound 05/08/17 0000 Signed Impressions: Service Date/Time: Monday, May 08, 2017 13:01 - CONCLUSION: 1. There is a small left pleural effusion with insufficient volume for thoracentesis at this time. Ronaldo Howell MD Abdomen Fluoroscopy 05/01/17 0000 Signed Impressions: Service Date/Time: Monday, May 01, 2017 13:13 - CONCLUSION: Uncomplicated nasogastric tube placement as above. Zain Kumar MD Lower Extremity Ultrasound 04/28/17 0000 Signed Impressions: Service Date/Time: Friday, April 28, 2017 16:47 - CONCLUSION: Negative exam with no evidence of deep venous thrombosis. Johnathon White MD Chest CT 04/28/17 0000 Signed Impressions: Service Date/Time: Friday, April 28, 2017 11:03 - CONCLUSION: 1. Small bilateral pleural effusions with atelectasis in both lower lobes. There is also a focal area of groundglass opacity in the lingula that is nonspecific but could represent an infectious or inflammatory process. 2. Moderate size hiatal hernia with dilated and fluid-filled esophagus suggesting gastroesophageal reflux. The nasogastric tube distal tip is in the distal esophagus and should ideally be advanced into the stomach. Olu Triana MD Head CT 04/27/17 1017 Signed Impressions: Service Date/Time: Thursday, April 27, 2017 11:00 - CONCLUSION: 1. No acute intracranial abnormality. 2. Complete opacification left maxillary sinus. Keagan Shipman MD Renal Ultrasound 04/27/17 0000 Signed Impressions: Service Date/Time: Thursday, April 27, 2017 23:50 - CONCLUSION: Negative renal sonogram. Rogerio Gunn MD Chest X-Ray 05/12/17 0600 Signed Impressions: Service Date/Time: Friday, May 12, 2017 03:49 - CONCLUSION: Upper lobe infiltrate with unchanged left lower lobe infiltrate. Rogerio Harris Jr., MD Abdomen/Pelvis CT 05/12/17 0000 Signed Impressions: Service Date/Time: Friday, May 12, 2017 17:56 - CONCLUSION: 1. Left lower lobe collapse and lingular consolidation. Endobronchial soft tissue within the left lower lobe, Mass versus mucus plugging are differential diagnostic considerations. 2. Body wall edema and ascites. 3. Nonobstructing right renal calculus. 4. Colitis with abnormal bowel wall thickening involving the ascending colon, and diffuse small bowel dilatation characteristic of an ileus. Ray Finney MD Abdomen X-Ray 05/12/17 0000 Signed Impressions: Service Date/Time: Friday, May 12, 2017 06:36 - CONCLUSION: 1. Reinsertion of the rectal tube which is coiled within the rectal vault. It may be kinked and not draining well. 2. Persistent gaseous distention of the colon although a slight decrease in the volume of gas. 3. New mildly dilated gas-filled loops of small bowel. Rogerio Harris Jr., MD Chest Ultrasound 05/08/17 0000 Signed Impressions: Service Date/Time: Monday, May 08, 2017 13:01 - CONCLUSION: 1. There is a small left pleural effusion with insufficient volume for thoracentesis at this time. Ronaldo Howell MD Abdomen Fluoroscopy 05/01/17 0000 Signed Impressions: Service Date/Time: Monday, May 01, 2017 13:13 - CONCLUSION: Uncomplicated nasogastric tube placement as above. Zain Kumar MD Lower Extremity Ultrasound 04/28/17 0000 Signed Impressions: Service Date/Time: Friday, April 28, 2017 16:47 - CONCLUSION: Negative exam with no evidence of deep venous thrombosis. Johnathon White MD Chest CT 04/28/17 0000 Signed Impressions: Service Date/Time: Friday, April 28, 2017 11:03 - CONCLUSION: 1. Small bilateral pleural effusions with atelectasis in both lower lobes. There is also a focal area of groundglass opacity in the lingula that is nonspecific but could represent an infectious or inflammatory process. 2. Moderate size hiatal hernia with dilated and fluid-filled esophagus suggesting gastroesophageal reflux. The nasogastric tube distal tip is in the distal esophagus and should ideally be advanced into the stomach. Olu Triana MD Head CT 04/27/17 1017 Signed Impressions: Service Date/Time: Thursday, April 27, 2017 11:00 - CONCLUSION: 1. No acute intracranial abnormality. 2. Complete opacification left maxillary sinus. Keagan Shipman MD Renal Ultrasound 04/27/17 0000 Signed Impressions: Service Date/Time: Thursday, April 27, 2017 23:50 - CONCLUSION: Negative renal sonogram. Rogerio Gunn MD Physical Exam GENERAL: Awake and alert, comfortable on T-piece, following all commands SKIN: No rashes. Ecchymoses. Cool and dry. HEAD: Atraumatic. Normocephalic. No temporal or scalp tenderness. EYES: Pupils equal round and reactive. Extraocular motions intact. [place] conjunctiva. No petechia or injection ENT: Nose without bleeding, purulent drainage or septal hematoma. Moist mucosa NECK: Trach site ok. RIJ TLC ok CARDIOVASCULAR: Regular rate and rhythm without murmurs. RESPIRATORY: Clear to auscultation. Breath sounds equal bilaterally. No wheezes , rales, or rhonchi. GASTROINTESTINAL: Abdomen soft, non-tender, slightly distended. (+) BS, not guarding. PEG site ok MUSCULOSKELETAL: Extremities without clubbing, cyanosis. Anasarca, Pedal edema 3 +. Edema both UE much improved NEUROLOGICAL: Opens eyes, follows commands, moves all extremities. PSYCH: Calm, and cooperative : Erwin in place, urine looks clear IV line sites with no e.o infection. Assessment & Plan Remarks IMPRESSION Aspiration Pneumonia (vomiting due to Gaseous distention this am) s/p colonic decompression 05/12/17 and other times in this admission. - sputum C/S E coli Ileus S/P decompression - PMC vs ischemic colitis on path report Pseudomembranous colitis (r/o cdiff) COPD exacerbation Alcoholism Cirrhosis of liver. Acute metabolic encephalopathy PLAN Continue Rocephin - give 7 days, end date [facility] - sputum C/S with E coli Continue Flagyl IV (anaerobes and Cdiff coverage). Cdiff can be negative with use of barrier cream used in pericare. Needs IV flagyl as pt had N/V and GI issues yday. - change to po Monitor progress Weaning per CCM D/W Violet Tom MD May 23, 2017 10:22
--- NOTE | 2017-05-23 12:27 | HHI.GIFU ---
Subjective Remarks Resting in bed, patient is currently on T-bar. He is NPO. His abdomen is soft , not distended today. Flexiseal with large amount of liquid stool. (Kathrin Carreno) Objective Vitals I&O Vital Signs Date Time Temp Pulse Resp B/P (MAP) Pulse Ox O2 Delivery O2 Flow Rate FiO2 05/23/17 08:47 97 T-piece 6.00 40 05/23/17 06:00 85 05/23/17 04:00 86 05/23/17 04:00 40 05/23/17 04:00 98.5 86 18 130/85 (100) 100 05/23/17 02:00 84 05/23/17 00:32 99 Ventilator 05/23/17 00:28 99 40 05/23/17 00:00 40 05/23/17 00:00 84 05/23/17 00:00 98.9 84 18 134/66 (88) 99 05/22/17 22:00 86 05/22/17 20:00 98.7 98 22 127/88 (101) 99 05/22/17 20:00 98 05/22/17 20:00 40 05/22/17 19:37 100 40 05/22/17 18:00 86 05/22/17 16:00 40 05/22/17 16:00 92 05/22/17 16:00 98.8 92 21 136/90 (105) 100 05/22/17 15:01 99 40 05/22/17 14:00 78 I/O 05/22/17 05/22/17 05/22/17 05/23/17 05/23/17 05/23/17 07:00 15:00 23:00 07:00 15:00 23:00 Intake Total 259 ml 300 ml 250 ml 147 ml 250 ml Output Total 6350 ml 3500 ml 1820 ml 5750 ml Balance -6091 ml -3200 ml -1570 ml -5603 ml 250 ml Intake Oral 0 ml IV Total 300 ml 100 ml 147 ml 250 ml Tube Feeding 199 ml Other 60 ml 150 ml Output Urine Total 6150 ml 3500 ml 1820 ml 4950 ml Stool Total 200 ml 800 ml Laboratory Laboratory Tests Test 05/23/17 03:39 White Blood Count 19.6 Red Blood Count 2.51 Hemoglobin 8.6 Hematocrit 26.1 Mean Corpuscular Volume 104.0 Mean Corpuscular Hemoglobin 34.2 Mean Corpuscular Hemoglobin Concent 32.9 Red Cell Distribution Width 24.1 Platelet Count 150 Mean Platelet Volume 9.4 Blood Urea Nitrogen 20 Creatinine 0.53 Random Glucose 117 Calcium Level 8.6 Magnesium Level 1.1 Sodium Level 146 Potassium Level 3.1 Chloride Level 106 Carbon Dioxide Level 32.1 Anion Gap 8 Estimat Glomerular Filtration Rate 158 Date/Time Source Procedure Growth Status 04/27/17 14:15 Blood Peripheral Aerobic Blood Culture - Final NO GROWTH IN 5 DAYS Complete 04/27/17 14:15 Blood Peripheral Anaerobic Blood Culture - Final NO GROWTH IN 5 DAYS Complete 05/13/17 12:45 Bronchial Washings Left Upper Lobe Fungal Smear - Final NO FUNGAL ELEMENTS SEEN. Resulted 05/13/17 12:45 Bronchial Washings Left Upper Lobe Fungal Culture - Preliminary NO GROWTH IN 1 WEEK Resulted 05/06/17 07:50 Urine Catheterized Urine Urine Culture - Final NO GROWTH IN 48 HOURS. Complete Imaging Last Impressions Chest X-Ray 05/22/17599 Signed Impressions: Service Date/Time: Monday, May 22, 2017 04:27 - CONCLUSION: 1. Cardiomegaly and findings of vascular congestion without overt failure. There has been no significant change when compared to the prior exam. Fabrizio Odom MD Abdomen X-Ray 05/20/17599 Signed Impressions: Service Date/Time: Saturday, May 20, 2017 03:20 - CONCLUSION: 1. Dilatation of the transverse colon. Significant air filled small bowel is not seen. On the prior exam, the small bowel was prominent. 2. Hazy densities in the abdomen which may suggest ascites. 3. Left lower lobe consolidation or atelectasis. Olu Herrera MD Abdomen/Pelvis CT 05/12/17 0000 Signed Impressions: Service Date/Time: Friday, May 12, 2017 17:56 - CONCLUSION: 1. Left lower lobe collapse and lingular consolidation. Endobronchial soft tissue within the left lower lobe, Mass versus mucus plugging are differential diagnostic considerations. 2. Body wall edema and ascites. 3. Nonobstructing right renal calculus. 4. Colitis with abnormal bowel wall thickening involving the ascending colon, and diffuse small bowel dilatation characteristic of an ileus. Ray Finney MD Chest Ultrasound 05/08/17 0000 Signed Impressions: Service Date/Time: Monday, May 08, 2017 13:01 - CONCLUSION: 1. There is a small left pleural effusion with insufficient volume for thoracentesis at this time. Ronaldo Howell MD Abdomen Fluoroscopy 05/01/17 0000 Signed Impressions: Service Date/Time: Monday, May 01, 2017 13:13 - CONCLUSION: Uncomplicated nasogastric tube placement as above. Zain Kumar MD Lower Extremity Ultrasound 04/28/17 0000 Signed Impressions: Service Date/Time: Friday, April 28, 2017 16:47 - CONCLUSION: Negative exam with no evidence of deep venous thrombosis. Johnathon White MD Chest CT 04/28/17 0000 Signed Impressions: Service Date/Time: Friday, April 28, 2017 11:03 - CONCLUSION: 1. Small bilateral pleural effusions with atelectasis in both lower lobes. There is also a focal area of groundglass opacity in the lingula that is nonspecific but could represent an infectious or inflammatory process. 2. Moderate size hiatal hernia with dilated and fluid-filled esophagus suggesting gastroesophageal reflux. The nasogastric tube distal tip is in the distal esophagus and should ideally be advanced into the stomach. Olu Triana MD Head CT 04/27/17 1017 Signed Impressions: Service Date/Time: Thursday, April 27, 2017 11:00 - CONCLUSION: 1. No acute intracranial abnormality. 2. Complete opacification left maxillary sinus. Keagan Shipman MD Renal Ultrasound 04/27/17 0000 Signed Impressions: Service Date/Time: Thursday, April 27, 2017 23:50 - CONCLUSION: Negative renal sonogram. Rogerio Gunn MD Physical Exam HEENT: Normocephalic CHEST: Resp even, mildly labored. Course breath sounds. Trach, Tbar CARDIAC: RRR ABDOMEN: Abdomen soft, nondistended, BS active. Flexiseal with large amount of stool. PEG tube site without redness or swelling EXTREMITIES: Generalized edema BAR PILOT: Sedated on vent (Kathrin Carreno) Assessment and Plan Plan ASSESSMENT - Colonic/small bowel ileus. CT Scan abdomen and pelvis with IV contrast ()---->left lower lobe collapse and lingular consolidation. endobronchial sot tissue within left lower lobe, mass versus mucus plugging are differential diagnostic considerations. Body wall edema and ascites, nonobstructing renal calculus, colitis with abnormal bowel wall thickening involving the ascending colon, and diffuse small bowel dilatation suggesting ileus . S/P 2 SSE. S/P Relistor S/P Decompressive colonoscopy (05/06/17)----> stool throughout the colon, I did not see any masses, visualization was compromised with stool, decompression colon tube was placed. S/P Decompressive colonoscopy (05/12/17)---> Diverticulosis sigmoid poor prep, superficial ulcerations in ascending colon and cecum-biopsy with, pseudomembranes-consistent with cdiff. Pathology fragments of colonic mucosa and fragments of acute inflammatory exudate with ghost outlines of colonic mucosa, suggestive of ischemia. This could be seen in either pseudomembranous colitis or in ischemic colitis. Clinical correlation is suggested. Stools negative for cdiff pcr. Pt had improved and therefore we had signed off, but today we were reconsulted for worsening distention. KUB (05/20/17)--- > Dilatation of the transverse colon. Significant air filled small bowel bowel is not seen. On the prior exam, the small bowel was prominent. Hzy densities in the abdomen which may suggest ascites. Left lower lobe consolidation or atelectasis. He was started on trickle feeds yesterday. Remains distended, but moving his bowels and tolerating TF. Flexiseal with large amount of liquid stool. Not distended. Lactulose to BID, Miralax, Reglan, EES. Cont. Flagyl. Clinically, not distended. Will start TF. - Colitis/pseudomembranes. CDiff vs. ischemic colitis. Pathology as above. Stool was negative for CDiff pcr. Flagyl - Anemia, macrocytic. S/P EGD (04/30/17)---> Martinez esophagus, Esophagitis, Gastritis, Foreign body in the distal esophagus. Pathology reactive gastropathy. S/P 2 units RBC, 2 units Platelets. Vitamin B12 1298. PPI. HH 7.4/22.7. - Martinez's Esophagus, Esophagitis, Gastritis. Pathology reactive gastropathy. Rpt EGD with peg tube placement (05/22/17)--> Mild reflux esophagitis, Mild gastritis, Small hiatal hernia, Successful PEG placement. PPI - Foreign body in distal esophagus, s/p EGD. - Dysphagia, FEN. S/P EGD with peg tube placement (05/22/17)---> PEG tube site without redness, swelling, drainage. - Elevated ammonia, acute encephalopathy. Lactulose, Xifaxan. - Elevated bilirubin. CT as above. History of ETOH abuse, drinks 1/5 of vodka daily. Hypoalbuminemia with albumin 2.1. Mild coagulopathy. Suspect liver cirrhosis, likely secondary to alcohol, fatty liver disease. LFTs are stable - Sepsis, unclear source. Urine negative for legionella, streptococcus, bcx neg , sputum cx with light growth normal respiratory andrea. CT reveals possible pneumonia. Colonoscopy---> pseudomembranes consistent with cdiff vs. ischemia. Flagyl, Ceftriaxone - Respiratory failure, COPD. S/P Trach (05/19). On TBar. PLAN - Jevity 1.5 at 30cc/hr and increase to GR of 60cc/hr - Cont. PPI - Cont. EES - Cont. Flagyl - Cont. Xifaxan/Lactulose - D/C Miralax - Monitor labs - Supportive care - Further recommendation to follow based on results of above - Patient seen and examined by and myself and this note is written on his behalf. (Kathrin Carreno) Physician Comments Patient seen and examined Agree with above Continue with current supportive care Monitor labs (Arnel Ventura MD) Kathrin Carreno May 23, 2017 12:27 Arnel Ventura MD May 23, 2017 17:42
[2017-05-23] MEDS: metroNIDAZOLE 500 MG TAB PO SCH ×2 (14:39→20:25)
[2017-05-24] VITALS (13 sets, daily range): BP systolic 101–135; BP diastolic 73–85; PULSE 84–117; RESP 15–38; TEMP 97.8–98.5; O2SAT 70–100
[2017-05-24] MEDS: methylPREDNISolone SOD SUCC 40 MG/1 ML VIAL IV PUSH SCH ×2 (01:51→12:24)
[2017-05-24] MEDS: METOCLOPRAMIDE HCL 10 MG/2 ML VIAL IV PUSH SCH ×3 (05:01→22:00)
[2017-05-24] MEDS: BUDESONIDE-FORMOTEROL 160/4.5 MCG INHALER INH SCH ×2 (05:01→18:00)
[2017-05-24] MEDS: ERYTHROMYCIN ETHYLSUCCINATE 200 MG/5 ML SUSP 100 ML BOTTLE PO SCH ×3 (05:02→22:09)
[2017-05-24] MEDS: ARTIFICIAL TEARS OPTH SOLN 15 ML BTL EACH EYE SCH ×3 (05:02→22:09)
[2017-05-24] MEDS: metroNIDAZOLE 500 MG TAB PO SCH ×3 (05:02→22:09)
--- NOTE | 2017-05-24 05:05 | RADRPT ---
EXAM DATE/TIME: 05/24/2017 03:26 [place] COMPARISON: CHEST SINGLE AP, May 22, 2017, 4:27. INDICATIONS : Shortness of breath, possible pulmonary disease. MEDICAL HISTORY : Chronic obstructive pulmonary disease. Seizures SURGICAL HISTORY : Tracheostomy ENCOUNTER: Subsequent ACUITY: 2 weeks PAIN SCORE: Non-responsive. LOCATION: Bilateral chest FINDINGS: The cardiac silhouette is enlarged in transverse diameter. A tracheostomy tube is in place in the mid line. There is left lower lobe atelectasis versus pneumonia. There is resolution of the previously se en vascular congestion. CONCLUSION: 1. Improved pulmonary edema 2. Left lower lobe atelectasis versus pneumonia. There has been no significant change when compared t o the prior exam. Fabrizio Odom MD on May 24, 2017 at 5:03 Board Certified Radiologist. This report was verified electronically.
[2017-05-24 07:54] LABS: AUTOMATED NEUTROPHIL # 19.7 TH/MM3 (1.8-7.7); BASOPHIL % 0.1 % (0.0-2.0); EOSINOPHIL # 0.2 TH/MM3 (0-0.4); EOSINOPHIL % 0.8 % (0.0-4.0); HEMATOCRIT 31.8 % (39.0-51.0); HEMO FLAGS DIFF FINAL; LYMPH % 4.7 % (9.0-44.0); LYMPHOCYTE # 1.1 TH/MM3 (1.0-4.8); MEAN CELL VOLUME 105.4 FL (80.0-100.0); MEAN CORPUSCULAR HEMOGLOBIN 33.4 PG (27.0-34.0); MEAN CORPUSCULAR HGB CONC 31.7 % (32.0-36.0); MONO % 5.9 % (0.0-8.0); NEUT % 88.5 % (16.0-70.0); PLATELET COUNT 159 TH/MM3 (150-450); RED BLOOD COUNT 3.02 MIL/MM3 (4.50-5.90); RED CELL DISTRIBUTION WIDTH 24.2 % (11.6-17.2); WHITE BLOOD COUNT 22.3 TH/MM3 (4.0-11.0)
[2017-05-24] MEDS: CHLORHEXIDINE 0.12% (ORAL KIT) 15 ML CUP MT SCH ×2 (08:00→22:07)
[2017-05-24] MEDS: RESP: BUDESONIDE 0.5 MG/2 ML NEB NEB SCH ×2 (08:00→20:20)
[2017-05-24 08:31] LABS: ANION GAP 8 MEQ/L (5-15); AST (GOT) 71 U/L (15-37); BICARBONATE 32.4 MEQ/L (21.0-32.0); BLOOD UREA NITROGEN 27 MG/DL (7-18); CHLORIDE 107 MEQ/L (98-107); GLOMERULAR FILTRATION RATE 142 ML/MIN (>89); MAGNESIUM 1.6 MG/DL (1.5-2.5); POTASSIUM 3.2 MEQ/L (3.5-5.1); SODIUM (NA) 147 MEQ/L (136-145)
[2017-05-24 08:32] LABS: ALT (GPT) 51 U/L (12-78)
[2017-05-24 08:36] LABS: ALKALINE PHOSPHATASE 122 U/L (45-117); TOTAL BILIRUBIN ADULT 0.8 MG/DL (0.2-1.0)
[2017-05-24] MEDS: TIOTROPIUM BROMIDE 18 MCG INH INH SCH (09:00)
[2017-05-24] MEDS: REMOVE OLD PATCH T-DERMAL SCH (09:00)
[2017-05-24] MEDS: DOCUSATE SODIUM 50 MG/SENNA 8.6 MG TAB PO SCH ×2 (09:00→22:08)
[2017-05-24] MEDS: LACTULOSE SYRUP 20 GM/30 ML CUP PO SCH ×2 (09:00→22:08)
[2017-05-24] MEDS: SODIUM CHLORIDE 0.9% FLUSH 10 ML FLUSH IV FLUSH SCH (09:00)
[2017-05-24] MEDS: THIAMINE HCL 100 MG TAB PO SCH (10:08)
[2017-05-24] MEDS: PANTOPRAZOLE SODIUM 40 MG VIAL IV PUSH SCH (10:08)
[2017-05-24] MEDS: RIFAXIMIN 550 MG TAB PO SCH ×2 (10:09→22:08)
[2017-05-24] MEDS: POTASSIUM CHLORIDE 25 MEQ EFFERVESCENT TAB PO SCH ×2 (10:09→22:08)
[2017-05-24] MEDS: GABAPENTIN 300 MG CAP PO SCH ×3 (10:09→18:14)
[2017-05-24] MEDS: MULTIVITAMIN TAB PO SCH (10:09)
[2017-05-24] MEDS: FOLIC ACID 1 MG TAB PO SCH (10:10)
[2017-05-24] MEDS: cefTRIAXone INJ 2,000 MG in SODIUM CHLORIDE 0.9% INJ 100 ML IV SCH (10:10)
[2017-05-24] MEDS: SODIUM CHLORIDE 0.9% FLUSH 10 ML FLUSH IVF SCH (10:11)
[2017-05-24] MEDS: NICOTINE 14 MG/24 HR PATCH T-DERMAL SCH (10:13)
--- NOTE | 2017-05-24 10:13 | HHI.CCPN ---
Subjective Remarks/Hospital Course 61yM with h/o prior hepatic encephalopathy, etoh abuse, tobacco abuse, now admitted with weakness, fever, chills, worsening hypotension. called by hospitalist service overnight for clinical decline despite ivf resuscitation. Patient does complain of flank pain, but denies chest pain, abdominal pain. u/a +. started earlier on vanc/zosyn. has not voided. becoming worseningly agitated. unable to provide any additional information due to altered mental status. 04/28: Chart reviewed. Patient still quite agitated stating "I have to pee" patient has a Young catheter. Complaining of flank pain. Noted renal ultrasound negative. Currently on norepinephrine at 12 mg per minute. 04/29: Resting in bed in no acute distress. Currently on norepinephrine at 7 per minute for vasopressor support. Transfuse 2 units PRBC and 2 pack platelets overnight. Dilutional. Absolutely no signs of active bleeding. 04/30 Patient is sedated with Fentanyl and intubated. On Levophed 5 mics. Afebrile. For EGD today. 05/01 No events overnight. Sedated and intubated. On Levophed 4 mics. s/p EGD yesterday with shoed esophagitis, gastritis, food impaction in distal esophagus removed. 05/02: Afebrile. Off all vasopressors. NG tube advanced by IR yesterday. Feeding to be initiated today. Currently on fentanyl drip 05/03: Remains intubated sedated and not following commands remains on fentanyl infusion. Attempt CPAP trial if patient wakeful enough. Urine output minimal only 300 mL in 24 hours. Will give albumin and Bumex 05/04 Patient is sedated with Fentanyl and intubated. Afebrile. 05/05 Patient was self extubated last night. For possible decompressive colonoscopy today. Afebrile. 05/06 Patient is on 3L oxygen for decompressive colonoscopy today. On Precedex drip for agitation. CT abdomen/pelvis last night showed development of gaseous distention of the right and transverse colon with abrupt change in luminal dimension at the splenic flexure. There is a rectal tube in place and cannot differentiate between a focal obstruction/stricture versus decompression from the rectal tube. 05/07 Patient s/p decompressive colonoscopy last night KUB this morning showed decreased colonic distention. On 4L oxygen. 05/08 Patient was unresponsive on BIPAP this morning and was in resp distress he was subsequently intubated and placed on mechanical ventilation. CXR post intubation showed complete opacification of left hemithorax likely 2nd mucous plug 05/09 Patient is sedated with Fentanyl and intubated. Afebrile. 05/10 Patient remains sedated and intubated. Afebrile. Tolerating tube feeds 05/11: Tolerated PSV trials 3 hours today. Not tolerating tube feeding currently. KUB pending. Positive BM. Decreased urine output noted. 05/12: Lasted 1 hour on PSV trials today. Currently vomiting will be decompressed from above and below per GI today. Afebrile. Central line placed due to persistent hypotension 05/13: Permission from mother for bronchoscopy today for diagnosis left lower lobe on CAT scan of min/pelvis yesterday. Sample sent. Currently on linezolid , cefepime and Flagyl per infectious disease. 05/14: Patient remains intubated sedated, on sedation hold do not follow commands , but moving extremities. Initially intubated 04/28, self extubated 05/05, Re intubated for mucus plugging, AMS on 05/07 night. Combined vent day , mental status will not permit extubation. Copious yellow ETT secretions. 05/15: Gets agitated on CPAP. But intermittently follows commands. Good oxygen saturation. Chest x-ray shows improved aeration. Moderate secretions from ET tube but good cough. Will proceed with extubation. Remains full code 05/16: Patient was extubated yesterday but failed in about 1 hour due to stridor and tachypnea. Today off sedation mentation seems to be improved, tolerates CPAP with high settings but has bilateral crackles and coarse rhonchi. Family (son and daughter) starting in from [place]. Will be here tomorrow 05/17/17 and request the patient to be left intubated until they get here 05/17: Patient is more awake alert and appropriate in communicating even though on low-dose propofol and intubated. Waiting for family to arrive from [place] tonight. Possible weaning to extubation tomorrow 05/18: Awake alert following command on vent. Palliative care is meeting with family today. Once decision re: goals of care are made, most likely proceed with extubation 05/19: Patient was extubated yesterday and there myself under palliative care nurse practitioner Adalgisa Ellington had a detailed discussion with the patient. After talking to the family patient decided he wants to be full code and wants a tracheostomy and PEG tube done since this is his fourth reintubation. Currently intubated sedated tracheostomy today 05/20: Status post tracheostomy yesterday 05/19/17. Based on CPAP tolerating well now. We'll attempt T piece today. Discontinue Versed use propofol as needed. Labs pending 05/21: Remains intubated sedated. Tolerated CPAP 3 hours yesterday. Remains significantly fluid positive at least 2 KG since admission. Significant anasarca. Start on Bumex infusion. Chest x-ray shows fluid overload/pulmonary edema 05/22: Excellent diuresis with Bumex gtt. 6.8L in 24 hours and wt down by 5 kg, still kg up from admission weight. Tolerating TP. Possible PEG today 05/23: Currently patient is on TPs tolerating well. Attempts to talk. Up to stretcher chair today. Urine output more than 10 L on Bumex drip. Change to scheduled Bumex and one dose of Diamox 05/24: Tolerated TP all day, CPAP at night. >5L UO in 24 hours. We'll stop scheduled Bumex now, weight is down to admission weight. Use Bumex as needed Objective Vital Signs Date Time Temp Pulse Resp B/P (MAP) Pulse Ox O2 Delivery O2 Flow Rate FiO2 05/24/17 08:00 40 05/24/17 08:00 100 T-piece 7.00 05/24/17 04:00 98.0 97 15 109/73 (85) Intake and Output 05/24/17 05/24/17 05/25/17 08:00 16:00 00:00 Intake Total 779 ml Output Total 850 ml Balance -71 ml Result Diagram: 05/24/17 0541 05/24/17 0541 Imaging Last Impressions Chest X-Ray 05/13/17 0000 Signed Impressions: Service Date/Time: Saturday, May 13, 2017 13:22 - CONCLUSION: Stable chest appearance. Nasogastric tube in the distal esophagus Olu Rodriguez MD Abdomen/Pelvis CT 05/12/17 0000 Signed Impressions: Service Date/Time: Friday, May 12, 2017 17:56 - CONCLUSION: 1. Left lower lobe collapse and lingular consolidation. Endobronchial soft tissue within the left lower lobe, Mass versus mucus plugging are differential diagnostic considerations. 2. Body wall edema and ascites. 3. Nonobstructing right renal calculus. 4. Colitis with abnormal bowel wall thickening involving the ascending colon, and diffuse small bowel dilatation characteristic of an ileus. Ray Finney MD Abdomen X-Ray 05/12/17 0000 Signed Impressions: Service Date/Time: Friday, May 12, 2017 06:36 - CONCLUSION: 1. Reinsertion of the rectal tube which is coiled within the rectal vault. It may be kinked and not draining well. 2. Persistent gaseous distention of the colon although a slight decrease in the volume of gas. 3. New mildly dilated gas-filled loops of small bowel. Rogerio Harris Jr., MD Chest Ultrasound 05/08/17 0000 Signed Impressions: Service Date/Time: Monday, May 08, 2017 13:01 - CONCLUSION: 1. There is a small left pleural effusion with insufficient volume for thoracentesis at this time. Ronaldo Howell MD Abdomen Fluoroscopy 05/01/17 0000 Signed Impressions: Service Date/Time: Monday, May 01, 2017 13:13 - CONCLUSION: Uncomplicated nasogastric tube placement as above. Zain Kumar MD Lower Extremity Ultrasound 04/28/17 0000 Signed Impressions: Service Date/Time: Friday, April 28, 2017 16:47 - CONCLUSION: Negative exam with no evidence of deep venous thrombosis. Johnathon White MD Chest CT 04/28/17 0000 Signed Impressions: Service Date/Time: Friday, April 28, 2017 11:03 - CONCLUSION: 1. Small bilateral pleural effusions with atelectasis in both lower lobes. There is also a focal area of groundglass opacity in the lingula that is nonspecific but could represent an infectious or inflammatory process. 2. Moderate size hiatal hernia with dilated and fluid-filled esophagus suggesting gastroesophageal reflux. The nasogastric tube distal tip is in the distal esophagus and should ideally be advanced into the stomach. Olu Triana MD Head CT 04/27/17 1017 Signed Impressions: Service Date/Time: Thursday, April 27, 2017 11:00 - CONCLUSION: 1. No acute intracranial abnormality. 2. Complete opacification left maxillary sinus. Keagan Shipman MD Renal Ultrasound 04/27/17 0000 Signed Impressions: Service Date/Time: Thursday, April 27, 2017 23:50 - CONCLUSION: Negative renal sonogram. Rogerio Gunn MD Objective Remarks GENERAL: 61 year old male tolerating TP SKIN: Warm and dry. No rash HEAD: Normocephalic. EYES: No scleral icterus. Pupils are round 3 mm bilaterally and reactive ENT: Oral cavity is dry NECK: Supple, trachea midline. No JVD or lymphadenopathy. New trach in place with no significant bleeding CARDIOVASCULAR: RRR. S1, S2 no S4 without murmur RESPIRATORY: Breath sounds equal bilaterally. No accessory muscle use. Basilar crackles improved. Few wheezes GASTROINTESTINAL: No guarding. No rigidity. Hypoactive bowel sounds appreciated throughout. MSK: Anasarca significantly improved NEURO: Awake alert on the vent, follows commands moves all extremities Date of Insertion: Apr 28, 2017 Line: Central Venous Catheter Side: Right Location: Femoral A/P Assessment and Plan Neuro/Psych: Acute encephalopathy likely secondary to EtOH withdrawal/sepsis/hyperammonemia Alcohol dependence Off all continuos sedation. RASS -0. CT brain 04/27 revealed left maxillary sinusitis otherwise no acute intra-cranial findings Patient does have a history of EtOH withdrawal seizures. Seizure precautions Thiamine, folate and multivitamin daily CV: Severe sepsis-resolving Lactic acidosis- cleared Fluid overload Monitor HR and BP keep MAP>65mmHg Bumex infusion at 0.5 mg per hour05/21/17- 05/23/17. Scheduled Bumex 1 mg every 12, and Diamox 5 mg IV x1 05/23. DC today Use Bumex as needed, Wt close to admission weight Resp: Respiratory failure- intubated 04/28, self extubated 05/05 reintubated 05/08. Extubated again on 05/15 and 05/18 with re intubation s/p Perc Trach 05/19/17 COPD exacerbation Ongoing tobaccoism s/p Perc Trach 05/19/17. (Skyla Raines/Ken). Patient wanted full code including tracheostomy and PEG tube placement. Decadron 4 mg 4 doses completed. On 40 q12. inhaled budesonide Albuterol/ipratropium aerosols every 6 hours and albuterol aerosols every 2 hours. PRN TP 24/7 as tolerated starting today 05/24 s/p Bronch with BAL 05/08: Thick secretions/mucous plug left main stem bronchus suctioned to clear CXR post bronch showed improved aeration left lung. Mucous plugging left lower lobe on CAT scan 05/12. s/p bronchoscopy 05/13 with removal of mucous plug. Nicotine patch 14 mg daily. GI: Hyperammonemia Colonic Ileus, small bowel ileus Elevated AST Hypoalbuminemia- mild protein calorie malnutrition Hiatal hernia Sigmoid diverticulosis Hepatic steatosis Ileus improving clinically and on KUB, tube feeds restarted by GI. Having bowel movements PEG 05/22 CT abdomen/pelvis 05/12 revealed thickening ascending colon/small bowel dilatation/ileus. KUB 05/20 interval improvement in ileus KUB 05/18: Worsening ileus KUB 05/14 Improving bowel distention KUB 05/09: Mild improvements in bowel gas pattern. KUB 05/07: Decreased colonic distention KUB abdomen 05/04 showed severe ileus, cecum dilated to 10 cm s/p decompressive colonoscopy 05/06: Stool throughout the colon, Decompression colon tube was placed 05/05 CT abdomen/pelvis: Gaseous distention of the right and transverse colon with abrupt change in luminal dimension at the splenic flexure. Rectal tube in place and cannot differentiate between a focal obstruction/stricture versus decompression from the rectal tube. s/p EGD 04/30: Esophagitis, gastritis, food impaction in distal esophagus removed. Pantoprazole for GI prophylaxis. Docusate sodium/senna 1 tablet twice a day for bowel regimen. Continue Reglan : Right kidney nonobstructing stone 3 mm Renal ultrasound revealed no hydronephrosis Monitor renal function, I/O's, electrolytes replacement per protocol. Bumex DCd Endo: Hypokalemia hypomagnesemia Sliding-scale insulin to maintain euglycemia with Accu-Cheks every 6 hours with low regimen with Novolin R Electrolyte Replacement per protocol Heme: Leukocytosis Macrocytic anemia Patient was transfused 2 pack platelets and 2 PRBC 04/28. Follow CBC daily. Monitor trends. ID: Possible C. difficile colitis Aspiration pneumonia, E Coli in sputum Per infectious disease on ceftriaxone and metronidazole. Linezolid DCd 05/16/17 s/p Zosyn 04/27- onitor for signs of infections ( Fever, WBC) Afebrile, Follow up on BAL results 05/09 and 05/13- NGTD. Sputum E Coli-S to cefepime Blood cultures 2 -04/27 -no growth to date Urine culture - 04/27 -50 - 100,000 mixed gram-positive Sputum 04/28- normal resp andrea Urine pneumococcal and Legionella antigens negative MSK: PT/OTevaluate and treat. Up to chair Access -RIJ CVL placed 05/12-DCd Prophylaxis - GI - pantoprazole - DVT - SCD/ Heparin SQ , Level 2 Full code now. s/p trach 05/19/17. Tolerating TP today Esteban Raines MD May 24, 2017 10:13
[2017-05-24] MEDS: RESP: ALBUTEROL 2.5 MG/IPRATROPIUM 0.5 MG NEB (SCH) NEB ×3 (10:15→20:20)
--- NOTE | 2017-05-24 11:56 | HHI.GIFU ---
Subjective Remarks Resting in bed. Awake/Alert. Wants something to drink. Requesting a "coke." Denies any n/v. Denies abdominal pain. (Kathrin Carreno) Objective Vitals I&O Vital Signs Date Time Temp Pulse Resp B/P (MAP) Pulse Ox O2 Delivery O2 Flow Rate FiO2 05/24/17 08:00 40 05/24/17 08:00 100 T-piece 7.00 40 05/24/17 04:00 98.0 97 15 109/73 (85) 100 05/24/17 04:00 40 05/24/17 02:00 100 35 05/24/17 00:33 100 35 05/24/17 00:00 98.2 102 16 104/73 (83) 100 05/24/17 00:00 40 05/23/17 21:16 94 35 05/23/17 21:10 94 35 05/23/17 20:07 100 35 05/23/17 20:00 40 05/23/17 20:00 98.4 105 38 120/84 (96) 100 05/23/17 18:00 100 05/23/17 17:00 99 05/23/17 16:00 96 05/23/17 16:00 98.5 96 50 120/85 (97) 05/23/17 15:00 99 05/23/17 14:00 104 05/23/17 13:00 103 05/23/17 12:00 98.9 103 29 121/85 (97) 100 05/23/17 12:00 103 I/O 05/23/17 05/23/17 05/23/17 05/24/17 05/24/17 05/24/17 07:00 15:00 23:00 07:00 15:00 23:00 Intake Total 147 ml 550 ml 785 ml 779 ml Output Total 5750 ml 5500 ml 850 ml Balance -5603 ml 550 ml -4715 ml -71 ml Intake Oral 0 ml 0 ml IV Total 147 ml 550 ml 200 ml Tube Feeding 135 ml 719 ml Other 450 ml 60 ml Output Urine Total 4950 ml 4700 ml 750 ml Stool Total 800 ml 800 ml 100 ml Laboratory Laboratory Tests Test 05/24/17 05:41 White Blood Count 22.3 Red Blood Count 3.02 Hemoglobin 10.1 Hematocrit 31.8 Mean Corpuscular Volume 105.4 Mean Corpuscular Hemoglobin 33.4 Mean Corpuscular Hemoglobin Concent 31.7 Red Cell Distribution Width 24.2 Platelet Count 159 Mean Platelet Volume 10.6 Neutrophils (%) (Auto) 88.5 Lymphocytes (%) (Auto) 4.7 Monocytes (%) (Auto) 5.9 Eosinophils (%) (Auto) 0.8 Basophils (%) (Auto) 0.1 Neutrophils # (Auto) 19.7 Lymphocytes # (Auto) 1.1 Monocytes # (Auto) 1.3 Eosinophils # (Auto) 0.2 Basophils # (Auto) 0.0 CBC Comment DIFF FINAL Differential Comment Blood Urea Nitrogen 27 Creatinine 0.58 Random Glucose 110 Total Protein 6.5 Albumin 3.5 Calcium Level 8.9 Magnesium Level 1.6 Alkaline Phosphatase 122 Aspartate Amino Transf (AST/SGOT) 71 Alanine Aminotransferase (ALT/SGPT) 51 Total Bilirubin 0.8 Sodium Level 147 Potassium Level 3.2 Chloride Level 107 Carbon Dioxide Level 32.4 Anion Gap 8 Estimat Glomerular Filtration Rate 142 Date/Time Source Procedure Growth Status 04/27/17 14:15 Blood Peripheral Aerobic Blood Culture - Final NO GROWTH IN 5 DAYS Complete 04/27/17 14:15 Blood Peripheral Anaerobic Blood Culture - Final NO GROWTH IN 5 DAYS Complete 05/13/17 12:45 Bronchial Washings Left Upper Lobe Fungal Smear - Final NO FUNGAL ELEMENTS SEEN. Resulted 05/13/17 12:45 Bronchial Washings Left Upper Lobe Fungal Culture - Preliminary NO GROWTH IN 1 WEEK Resulted 05/06/17 07:50 Urine Catheterized Urine Urine Culture - Final NO GROWTH IN 48 HOURS. Complete Imaging Last Impressions Chest X-Ray 05/24/17 06 Signed Impressions: Service Date/Time: May 03:26 - CONCLUSION: 1. Improved pulmonary edema 2. Left lower lobe atelectasis versus pneumonia. There has been no significant change when compared to the prior exam. Fabrizio Odom MD Abdomen X-Ray 05/20/17 06 Signed Impressions: Service Date/Time: Saturday, May 20, 2017 03:20 - CONCLUSION: 1. Dilatation of the transverse colon. Significant air filled small bowel is not seen. On the prior exam, the small bowel was prominent. 2. Hazy densities in the abdomen which may suggest ascites. 3. Left lower lobe consolidation or atelectasis. Olu Herrera MD Abdomen/Pelvis CT 05/12/17 0000 Signed Impressions: Service Date/Time: Friday, May 12, 2017 17:56 - CONCLUSION: 1. Left lower lobe collapse and lingular consolidation. Endobronchial soft tissue within the left lower lobe, Mass versus mucus plugging are differential diagnostic considerations. 2. Body wall edema and ascites. 3. Nonobstructing right renal calculus. 4. Colitis with abnormal bowel wall thickening involving the ascending colon, and diffuse small bowel dilatation characteristic of an ileus. Ray Finney MD Chest Ultrasound 05/08/17 0000 Signed Impressions: Service Date/Time: Monday, May 08, 2017 13:01 - CONCLUSION: 1. There is a small left pleural effusion with insufficient volume for thoracentesis at this time. Ronaldo Howell MD Abdomen Fluoroscopy 05/01/17 0000 Signed Impressions: Service Date/Time: Monday, May 01, 2017 13:13 - CONCLUSION: Uncomplicated nasogastric tube placement as above. Zain Kumar MD Lower Extremity Ultrasound 04/28/17 0000 Signed Impressions: Service Date/Time: Friday, April 28, 2017 16:47 - CONCLUSION: Negative exam with no evidence of deep venous thrombosis. Johnathon White MD Chest CT 04/28/17 0000 Signed Impressions: Service Date/Time: Friday, April 28, 2017 11:03 - CONCLUSION: 1. Small bilateral pleural effusions with atelectasis in both lower lobes. There is also a focal area of groundglass opacity in the lingula that is nonspecific but could represent an infectious or inflammatory process. 2. Moderate size hiatal hernia with dilated and fluid-filled esophagus suggesting gastroesophageal reflux. The nasogastric tube distal tip is in the distal esophagus and should ideally be advanced into the stomach. Olu Triana MD Head CT 04/27/17 1017 Signed Impressions: Service Date/Time: Thursday, April 27, 2017 11:00 - CONCLUSION: 1. No acute intracranial abnormality. 2. Complete opacification left maxillary sinus. Keagan Shipman MD Renal Ultrasound 04/27/17 0000 Signed Impressions: Service Date/Time: Thursday, April 27, 2017 23:50 - CONCLUSION: Negative renal sonogram. Rogerio Gunn MD Physical Exam HEENT: Normocephalic CHEST: Resp even, mildly labored. Course breath sounds. Trach, Tbar CARDIAC: Regular, mildly tachycardic ABDOMEN: Abdomen soft, nondistended, BS active. PEG tube site without redness or swelling EXTREMITIES: Generalized edema [employer]: Awake on Tbar. Follows commands (Kathrin Carreno) Assessment and Plan Plan ASSESSMENT - Colonic/small bowel ileus. IMPROVED. CT Scan abdomen and pelvis with IV contrast (05/12/17)---->left lower lobe collapse and lingular consolidation. endobronchial sot tissue within left lower lobe, mass versus mucus plugging are differential diagnostic considerations. Body wall edema and ascites, nonobstructing renal calculus, colitis with abnormal bowel wall thickening involving the ascending colon, and diffuse small bowel dilatation suggesting ileus . S/P 2 SSE. S/P Relistor S/P Decompressive colonoscopy (05/06/17)----> stool throughout the colon, I did not see any masses, visualization was compromised with stool, decompression colon tube was placed. S/P Decompressive colonoscopy (05/12/17)---> Diverticulosis sigmoid poor prep, superficial ulcerations in ascending colon and cecum-biopsy with, pseudomembranes-consistent with cdiff. Pathology fragments of colonic mucosa and fragments of acute inflammatory exudate with ghost outlines of colonic mucosa, suggestive of ischemia. This could be seen in either pseudomembranous colitis or in ischemic colitis. Clinical correlation is suggested. Stools negative for cdiff pcr. Pt had improved and therefore we had signed off, but today we were reconsulted for worsening distention. KUB (05/20/17)--- > Dilatation of the transverse colon. Significant air filled small bowel bowel is not seen. On the prior exam, the small bowel was prominent. Hzy densities in the abdomen which may suggest ascites. Left lower lobe consolidation or atelectasis. He was started on trickle feeds yesterday. Remains distended, but moving his bowels and tolerating TF. Flexiseal with large amount of liquid stool. Not distended. Lactulose to BID, Reglan, EES. Cont. Flagyl. Abdomen not distended. Tolerating TF. - Colitis/pseudomembranes. CDiff vs. ischemic colitis. Pathology as above. Stool was negative for CDiff pcr. Flagyl - Anemia, macrocytic. S/P EGD (04/30/17)---> Martinez esophagus, Esophagitis, Gastritis, Foreign body in the distal esophagus. Pathology reactive gastropathy. S/P 2 units RBC, 2 units Platelets. Vitamin B12 1298. PPI. HH 10.1/31.8. - Martinez's Esophagus, Esophagitis, Gastritis. Pathology reactive gastropathy. Rpt EGD with peg tube placement (05/22/17)--> Mild reflux esophagitis, Mild gastritis, Small hiatal hernia, Successful PEG placement. PPI - Foreign body in distal esophagus, s/p EGD. - Dysphagia, FEN. S/P EGD with peg tube placement (05/22/17)---> PEG tube site without redness, swelling, drainage. - Elevated ammonia, acute encephalopathy. Lactulose, Xifaxan. - Elevated bilirubin. CT as above. History of ETOH abuse, drinks 1/5 of vodka daily. Hypoalbuminemia with albumin 2.1. Mild coagulopathy. Suspect liver cirrhosis, likely secondary to alcohol, fatty liver disease. LFTs are stable - Sepsis, unclear source. Urine negative for legionella, streptococcus, bcx neg , sputum cx with light growth normal respiratory andrea. CT reveals possible pneumonia. Colonoscopy---> pseudomembranes consistent with cdiff vs. ischemia. Flagyl, Ceftriaxone - Respiratory failure, COPD. S/P Trach (05/19). On TBar. PLAN - Jevity 1.5 GR of 60cc/hr - Cont. PPI - Cont. EES - Cont. Flagyl - Cont. Xifaxan/Lactulose - Monitor labs - Swallow evaluation with ST - GI will sign off, please reconsult as needed - Patient seen and examined by and myself and this note is written on his behalf. (Kathrin Carreno) Physician Comments Patient seen and examined Agree with above Continue with current supportive care Monitor labs We will sign off (Arnel Ventura MD) Kathrin Carreno May 24, 2017 11:56 Arnel Ventura MD May 24, 2017 20:32
--- NOTE | 2017-05-24 15:42 | HHI.HCPN ---
Reason for visit a. To assist with evaluation and management of symptoms including: dyspnea, agitation. b. To assist medical decision maker(s) with: better understanding of current medical conditions; weighing benefits/burdens of medical treatment options; making medical treatment decisions. . Subjective/Interval History Pt stable , s/p trach, PEG. Has been tolerating T-piece trials, though requiring ventilator support intermittently. ST /OT following, pt noted to be agitated at times, only intermittently cooperative/participates. WBC elevated 22.3. Remains on ceftriaxone, flagyl. H&H had been trending down, + ongoing diuresis w Bumex, >10,000 total output in the past 3 days. H&H now 10.1/ 31.8. Dual visit w S. Lower MIXER WET POUR. Pt seen in room no visitors present. Trach to t- piece, breathing comfortably. Mouths some words. Partially oriented to self, though appears to have poor insight to hospitalization based on further yes/no questions. Denies pain, denies shortness of breath. Denies HWANG or GI distress. He indicates wants to get out. He then tells me to get out. He is trying to reposition self in bed, we attempt to help him and he becomes agitated and mouths to "get the hell out". . Family/friend interactions Following exam call to 3 family members to provide update-- no answer at sister , son , or mother numbers. Left VM for mother as she is local. . Advance Directives Living Will: Never completed Health Care Surrogate: Never completed Durable Power of Yard Specialist: Never completed Advance Directive Specifics Health Care Surrogate(s): Patient currently incapacitated to make his health care decisions. No written advanced directives. Search for estranged has not produced any contact via [employer], [employer] or [employer] search, family does not have contact information. Therefore according to [place] statutes, health care proxy decision making falls to majority of adult children, he has 2 sons - one son disabled and dependent for care center not able to participate. Other son, Joseph Webb is willing to serve as health care proxy decision maker. . Objective Vital Signs Date Time Temp Pulse Resp B/P (MAP) Pulse Ox O2 Delivery O2 Flow Rate FiO2 05/24/17 12:00 98.2 105 32 115/74 (88) 96 05/24/17 12:00 105 10/19/17 10:00 103 38 120/76 (91) 100 05/24/17 10:00 103 05/24/17 08:00 40 05/24/17 08:00 117 05/24/17 08:00 98.0 117 22 101/73 (82) 70 05/24/17 08:00 100 T-piece 7.00 40 05/24/17 04:00 98.0 97 15 109/73 (85) 100 05/24/17 04:00 40 05/24/17 02:00 100 35 05/24/17 00:33 100 35 05/24/17 00:00 98.2 102 16 104/73 (83) 100 05/24/17 00:00 40 05/23/17 21:16 94 35 05/23/17 21:10 94 35 05/23/17 20:07 100 35 05/23/17 20:00 40 05/23/17 20:00 98.4 105 38 120/84 (96) 100 05/23/17 18:00 100 05/23/17 17:00 99 05/23/17 16:00 96 05/23/17 16:00 98.5 96 50 120/85 (97) Intake & Output 05/24/17 05/24/17 07:00 19:00 Intake Total 779 ml Output Total 850 ml Balance -71 ml Intake Oral 0 ml Tube Feeding 719 ml Other 60 ml Output Urine Total 750 ml Stool Total 100 ml Physical Exam CONSTITUTIONAL/GENERAL: This is an adequately nourished patient, awake mildly restless/confused TUBES/LINES/DRAINS: Peripheral IV upper extremity, Young catheter, Bilateral soft restraints upper extremities. SKIN: No jaundice, rashes, or lesions. No wounds seen anteriorly. Skin warm. CARDIOVASCULAR: RRR. STach observed bedside monitor. Trace peripheral edema RESPIRATORY/CHEST: Symmetric, mildly labored respirations.On t-piece.expiratory wheezes throughout lung escalante. Breath sounds equal bilaterally. GASTROINTESTINAL: Abdomen soft non distended, nontender, bowel sounds +. TF infusing via peg, dressing to peg clean/dry GENITOURINARY: Without palpable bladder distension. Young catheter in place. MUSCULOSKELETAL: Extremities without clubbing, cyanosis. 2 + edema to upper extremities. NEUROLOGICAL: Awake tracks examiners, mouths words. Oriented to self, otherwise confused. Follows simple commands. becomes more restless/agitated with further questions. PSYCHIATRIC: Easily agitated, restless. . Diagnostic Tests Laboratory Laboratory Tests Test 05/22/17 05:30 05/23/17 03:39 05/24/17 05:41 White Blood Count 16.2 TH/MM3 (4.0-11.0) 19.6 TH/MM3 (4.0-11.0) 22.3 TH/MM3 (4.0-11.0) Red Blood Count 2.15 MIL/MM3 (4.50-5.90) 2.51 MIL/MM3 (4.50-5.90) 3.02 MIL/MM3 (4.50-5.90) Hemoglobin 7.5 GM/DL (13.0-17.0) 8.6 GM/DL (13.0-17.0) 10.1 GM/DL (13.0-17.0) Hematocrit 22.5 % (39.0-51.0) 26.1 % (39.0-51.0) 31.8 % (39.0-51.0) Mean Corpuscular Volume 104.6 FL (80.0-100.0) 104.0 FL (80.0-100.0) 105.4 FL (80.0-100.0) Mean Corpuscular Hemoglobin 34.7 PG (27.0-34.0) 34.2 PG (27.0-34.0) 33.4 PG (27.0-34.0) Mean Corpuscular Hemoglobin Concent 33.2 % (32.0-36.0) 32.9 % (32.0-36.0) 31.7 % (32.0-36.0) Red Cell Distribution Width 24.7 % (11.6-17.2) 24.1 % (11.6-17.2) 24.2 % (11.6-17.2) Platelet Count 144 TH/MM3 (150-450) 150 TH/MM3 (150-450) 159 TH/MM3 (150-450) Mean Platelet Volume 8.9 FL (7.0-11.0) 9.4 FL (7.0-11.0) 10.6 FL (7.0-11.0) Neutrophils (%) (Auto) 90.4 % (16.0-70.0) 88.5 % (16.0-70.0) Lymphocytes (%) (Auto) 3.6 % (9.0-44.0) 4.7 % (9.0-44.0) Monocytes (%) (Auto) 5.9 % (0.0-8.0) 5.9 % (0.0-8.0) Eosinophils (%) (Auto) 0.0 % (0.0-4.0) 0.8 % (0.0-4.0) Basophils (%) (Auto) 0.1 % (0.0-2.0) 0.1 % (0.0-2.0) Neutrophils # (Auto) 14.7 TH/MM3 (1.8-7.7) 19.7 TH/MM3 (1.8-7.7) Lymphocytes # (Auto) 0.6 TH/MM3 (1.0-4.8) 1.1 TH/MM3 (1.0-4.8) Monocytes # (Auto) 1.0 TH/MM3 (0-0.9) 1.3 TH/MM3 (0-0.9) Eosinophils # (Auto) 0.0 TH/MM3 (0-0.4) 0.2 TH/MM3 (0-0.4) Basophils # (Auto) 0.0 TH/MM3 (0-0.2) 0.0 TH/MM3 (0-0.2) CBC Comment DIFF FINAL DIFF FINAL Differential Comment Blood Urea Nitrogen 18 MG/DL (7-18) 20 MG/DL (7-18) 27 MG/DL (7-18) Creatinine 0.51 MG/DL (0.60-1.30) 0.53 MG/DL (0.60-1.30) 0.58 MG/DL (0.60-1.30) Random Glucose 133 MG/DL (74-106) 117 MG/DL (74-106) 110 MG/DL (74-106) Total Protein 6.3 GM/DL (6.4-8.2) 6.5 GM/DL (6.4-8.2) Albumin 3.8 GM/DL (3.4-5.0) 3.5 GM/DL (3.4-5.0) Calcium Level 9.0 MG/DL (8.5-10.1) 8.6 MG/DL (8.5-10.1) 8.9 MG/DL (8.5-10.1) Magnesium Level 1.4 MG/DL (1.5-2.5) 1.1 MG/DL (1.5-2.5) 1.6 MG/DL (1.5-2.5) Alkaline Phosphatase 87 U/L (45-117) 122 U/L (45-117) Aspartate Amino Transf (AST/SGOT) 37 U/L (15-37) 71 U/L (15-37) Alanine Aminotransferase (ALT/SGPT) 22 U/L (12-78) 51 U/L (12-78) Total Bilirubin 0.9 MG/DL (0.2-1.0) 0.8 MG/DL (0.2-1.0) Sodium Level 145 MEQ/L (136-145) 146 MEQ/L (136-145) 147 MEQ/L (136-145) Potassium Level 3.3 MEQ/L (3.5-5.1) 3.1 MEQ/L (3.5-5.1) 3.2 MEQ/L (3.5-5.1) Chloride Level 111 MEQ/L (98-107) 106 MEQ/L (98-107) 107 MEQ/L (98-107) Carbon Dioxide Level 25.1 MEQ/L (21.0-32.0) 32.1 MEQ/L (21.0-32.0) 32.4 MEQ/L (21.0-32.0) Anion Gap 9 MEQ/L (5-15) 8 MEQ/L (5-15) 8 MEQ/L (5-15) Estimat Glomerular Filtration Rate 165 ML/MIN (>89) 158 ML/MIN (>89) 142 ML/MIN (>89) Result Diagram: 05/24/17 0541 05/24/17 0541 Imaging Last Impressions Chest X-Ray 05/24/17 06 Signed Impressions: Service Date/Time: May 03:26 - CONCLUSION: 1. Improved pulmonary edema 2. Left lower lobe atelectasis versus pneumonia. There has been no significant change when compared to the prior exam. Fabrizio Odom MD Abdomen X-Ray 05/20/17 0600 Signed Impressions: Service Date/Time: Saturday, May 20, 2017 03:20 - CONCLUSION: 1. Dilatation of the transverse colon. Significant air filled small bowel is not seen. On the prior exam, the small bowel was prominent. 2. Hazy densities in the abdomen which may suggest ascites. 3. Left lower lobe consolidation or atelectasis. Olu Herrera MD Abdomen/Pelvis CT 05/12/17 0000 Signed Impressions: Service Date/Time: Friday, May 12, 2017 17:56 - CONCLUSION: 1. Left lower lobe collapse and lingular consolidation. Endobronchial soft tissue within the left lower lobe, Mass versus mucus plugging are differential diagnostic considerations. 2. Body wall edema and ascites. 3. Nonobstructing right renal calculus. 4. Colitis with abnormal bowel wall thickening involving the ascending colon, and diffuse small bowel dilatation characteristic of an ileus. Ray Finney MD Chest Ultrasound 05/08/17 0000 Signed Impressions: Service Date/Time: Monday, May 08, 2017 13:01 - CONCLUSION: 1. There is a small left pleural effusion with insufficient volume for thoracentesis at this time. Ronaldo Howell MD Abdomen Fluoroscopy 05/01/17 0000 Signed Impressions: Service Date/Time: Monday, May 01, 2017 13:13 - CONCLUSION: Uncomplicated nasogastric tube placement as above. Zain Kumar MD Lower Extremity Ultrasound 04/28/17 0000 Signed Impressions: Service Date/Time: Friday, April 28, 2017 16:47 - CONCLUSION: Negative exam with no evidence of deep venous thrombosis. Johnathon White MD Chest CT 04/28/17 0000 Signed Impressions: Service Date/Time: Friday, April 28, 2017 11:03 - CONCLUSION: 1. Small bilateral pleural effusions with atelectasis in both lower lobes. There is also a focal area of groundglass opacity in the lingula that is nonspecific but could represent an infectious or inflammatory process. 2. Moderate size hiatal hernia with dilated and fluid-filled esophagus suggesting gastroesophageal reflux. The nasogastric tube distal tip is in the distal esophagus and should ideally be advanced into the stomach. Olu Triana MD Head CT 04/27/17 1017 Signed Impressions: Service Date/Time: Thursday, April 27, 2017 11:00 - CONCLUSION: 1. No acute intracranial abnormality. 2. Complete opacification left maxillary sinus. Keagan Shipman MD Renal Ultrasound 04/27/17 0000 Signed Impressions: Service Date/Time: Thursday, April 27, 2017 23:50 - CONCLUSION: Negative renal sonogram. Rogerio Gunn MD Procedures 04/28 intubated 04/30 EGD 05/05 self extubated 05/06 decompressive colonoscopy 05/08 reintubated 05/12 decompressive colonoscopy 05/18 - extubated 05/19 tracheostomy 05/23 EGD w PEG . Assessment and Plan Disease Oriented Problem List: (1) Acute encephalopathy (2) Severe sepsis (3) COPD (chronic obstructive pulmonary disease) (4) Hyperammonemia (5) Hypoalbuminemia due to protein-calorie malnutrition (6) Hiatal hernia (7) Diverticulosis, sigmoid (8) Kidney stone on right side (9) Aspiration pneumonia (10) Hypokalemia (11) Hypomagnesemia (12) UTI (urinary tract infection) (13) Chronic alcoholism Symptom Scale: (1) Dyspnea 0-10 Scale: 0 (2) Malnutrition 0-10 Scale: Unable to quantify Comment: Albumin 3.1. (3) Encephalopathy 0-10 Scale: Unable to quantify Comment: more alert, mouthing words. (4) Anxiety 0-10 Scale: Unable to quantify Comment: easily agitated. Pertinent Non-Medical Issues Psychosocial:Patient estranged from second , but still legally to Caty Webb. 2 adult children, one disbaled, Other son Joseph Webb lives in [place], limited contact. Supported by mother, Dallas (lives local) and sister Zakia (an RN) lives in [place]. Family reports has struggled with alcoholism his whole life, not working. Been in [place] about 10 years. Spiritual: Mandaeism alyssa. Legal: Patient currently incapacitated to make his health care decisions. No written advanced directives. Search for estranged has not produced any contact via [employer], [employer] or social media search, family does not have contact information. Therefore according to [place] statutes, health care proxy decision making falls to majority of adult children, he has 2 sons - one son disabled and dependent for care center not able to participate. Other son, Joseph Webb is willing to serve as health care proxy decision maker. Ethical issues impacting care: No known concerns at this time. . Important Contacts * Joseph Webb, son/HCP-: [phone] (In [place] - will driving from [place] to [place] leaving 05/17/17 in AM.) * Dallas Webb, mother: * Zakia Moore, sister: [phone] (In [place] - will driving with son to [place] leaving 05/17/17 in AM.) . Prognosis This patient was admitted for altered mental status. He has had ongoing hepatic encephalopathy and debility secondary to alcohol abuse. This admission he has been intubated twice, is currently being treated for aspiration pneumonia. GI following, pathology from colonoscopy biopsies pending. Overall prognosis for meaningful recovery and independent function is poor given his history. Possible he can survive current acute hospitalization but would likely require tracheostomy and PEG tube to continue invasive/aggressive measures. . Code Status: Full Code Plan * Legal decision maker: Patient currently incapacitated to make his health care decisions. No written advanced directives. Search for estranged , Caty has not produced any contact via [employer], [employer] or [employer] search, family does not have contact information. Therefore according to [place] statutes, health care proxy decision making falls to majority of adult children , he has 2 sons - one son disabled and dependent for care center not able to participate. Other son, Joseph Webb is willing to serve as health care proxy decision maker. * FULL CODE * GOALS: Previously during last palliative care interaction goals aggressive, pt son agreed to extubation, then to FULL CODE and reintubation if needed. * SYMPTOMS: No new medication recommendations at this time. --Dyspnea-second intubation this hospital admission for acute respiratory failure.+ Aspiration pneumonia, encephalopathy and inability to protect his airway;s/p trach, tolerating T-piece trials, though still requiring intermittent ventilator support. --Encephalopathy-hepatic, ? Sepsis. last ammonia level 45 despite lactulose, Xifaxan. Cont to be on Xifaxan, lactulose. still confused/agitated at times. --Malnutrition-patient with long history alcohol abuse chronic malnutrition likely given this diagnoses; albumin 3.1. SP PEG tube- tolerating TF --Anxiety/agitation-multifactorial, history EtOH abuse, had required Precedex drip on mechanical vent. More alert today, cooperative at times, though also reported to have episodes of agitation. * Palliative care will continue to follow during hospital course as condition evolves, to assist patient/decision-maker with understanding of medical conditions, weighing benefits/burdens of treatment options, for clarification of goals of treatment. Additionally will assist with any symptoms of palliative concern . Time Spent Total Floor Time (mins): 20 (d/w RN, chart review, exam, calls to family members ) Attestation To help prompt me to consider important information that might be impacting today's encounter and assessment, information from prior notes written by myself or my colleagues may have been "brought forward" into today's note. My signature on this note, however, is an attestation that I personally performed the exam, history, and/or decision-making noted today, and, unless otherwise indicated, the interactions with patient, family, and staff as well as the review of records all occurred today. I also attest that the listed assessment and stated plan reflect my best clinical judgment today based on the combination of historical information, prior notes, and today's exam/ interactions. When time spent is documented, it refers only to time spent today by the signer, or if indicated, combined time spent today by collaborating physician/nurse practitioner. Gregoria Loyd May 24, 2017 15:42
--- NOTE | 2017-05-24 17:07 | HHI.IDPN ---
Subjective Subjective Remarks ID COVERAGE Chart reviewed is a 61y CM with PMHx of ETOH abuse, prior hepatic encephalopathy, chronic alcoholism, ETOH withdrawal seizures who presented with weakness, dizziness, and having a fall and not being able to get up, per EMR admitted . Since admission, has had complicated hospital course, has been reintubated at least 4x, ans subsequently underwent tracheostomy 05/19. ALso has had problems with abdominal distension, N/V, has had at least 2 decompressive colonoscopies, last one showing findings suggestive of either ischemic colitis or PMC. Notes reviewed D/W RN On T-piece Temps ok Had excellent diuresis last 24 hours Has loose stool Awake and restless, has restraints Antibiotics Ceftriaxone IV Flagyl IV I attest I obtained, reviewed or updated the home meds and current meds (for name, dose, freq and route). Current Medications Medications (Trade) Dose Ordered Sig/Brenda Route Start Time Stop Time Status Last Admin (Neurontin) 300 mg TID PO 04/27/17 13:00 Future hold 05/24/17 12:24 (Tylenol) 650 mg Q4H PRN PO 04/27/17 12:30 05/21/17 03:20 (Compazine Supp) 25 mg Q12H PRN RECTAL 04/27/17 12:30 (Narcan Inj) 0.4 mg UNSCH PRN IV PUSH 04/27/17 12:30 (Beena-Colace) 1 tab BID PO 04/27/17 21:00 Future hold 05/23/17 20:25 (Milk Of Magnesia Liq) 30 ml Q12H PRN PO 04/27/17 12:30 (Senokot) 17.2 mg Q12H PRN PO 04/27/17 12:30 (Dulcolax Supp) 10 mg DAILY PRN RECTAL 04/27/17 12:30 (Xifaxan) 550 mg BID PO 04/27/17 21:00 05/24/17 10:09 (Catapres) 0.1 mg Q6H PRN PO 04/27/17 12:30 (Habitrol 14 Mg Patch.24 Hr) 1 patch DAILY T-DERMAL 04/28/17 09:00 05/24/17 10:13 Miscellaneous Information 1 DAILY T-DERMAL 04/28/17 09:00 05/24/17 09:00 Miscellaneous Information Patient in critical care unit? Ass... [id number] 04/27/17 17:30 Potassium Chloride 100 ml @ 50 mls/hr Q2H PRN IV 04/28/17 07:15 05/21/17 06:33 Potassium Chloride 100 ml @ 50 mls/hr Q2H PRN IV 04/28/17 07:15 05/23/17 16:44 (K-Lyte Cl Eff) 50 meq UNSCH PRN PO 04/28/17 07:15 05/24/17 14:45 Potassium Chloride 100 ml @ 25 mls/hr UNSCH PRN IV 04/28/17 07:15 05/21/17 08:58 Potassium Chloride 100 ml @ 50 mls/hr Q2H PRN IV 04/28/17 07:15 05/22/17 12:40 Magnesium Sulfate 4 gm/Sodium Chloride 100 ml @ 50 mls/hr UNSCH PRN IV 04/28/17 07:15 05/23/17 05:30 (Mag-Ox) 800 mg UNSCH PRN PO 04/28/17 07:15 Magnesium Sulfate 2 gm/Sodium Chloride 100 ml @ 50 mls/hr UNSCH PRN IV 04/28/17 07:15 05/20/17 03:33 (K-Phos) 2,000 mg Q4H PRN PO 04/28/17 07:15 Sodium Phosphate 30 mmol/Sodium Chloride 250 ml @ 42 mls/hr UNSCH PRN IV 04/28/17 07:15 05/10/17 10:31 (K-Phos) 2,000 mg UNSCH PRN PO/TUBE 04/28/17 07:15 Potassium Phosphate 30 mmol/ Sodium Chloride 260 ml @ 42 mls/hr UNSCH PRN IV 04/28/17 07:15 (Peridex 0.12% Liq) 15 ml BID@08,20 MT 04/28/17 20:00 05/23/17 20:00 (Tears Naturale Opth Soln) 1 drop Q8HR EACH EYE 04/28/17 14:00 05/24/17 14:46 (Protonix Inj) 40 mg DAILY IV PUSH 04/28/17 09:30 05/24/17 10:08 (NS Flush) DAILY IVF 04/29/17 15:45 05/24/17 10:11 (NS Flush) UNSCH PRN IVF 04/29/17 15:45 05/17/17 08:12 (Vitamin B1) 100 mg DAILY PO 04/30/17 09:15 05/24/17 10:08 (Theragran) 1 tab DAILY PO 04/30/17 09:15 05/24/17 10:09 (Folate) 1 mg DAILY PO 04/30/17 09:15 05/24/17 10:10 (Heparin Inj) 5,000 units Q12HR SQ 05/08/17 21:00 Future Hold 05/18/17 09:48 (Albuterol Neb) 2.5 mg Q2HR NEB PRN NEB 05/11/17 13:45 (Reglan Inj) 10 mg Q8HR IV PUSH 05/12/17 14:00 05/24/17 14:45 (NS Flush) DAILY IV FLUSH 05/13/17 09:00 05/23/17 09:52 (NS Flush) UNSCH PRN IV FLUSH 05/12/17 14:30 05/20/17 13:12 (Brethine Inj) 1 mg UNSCH PRN SQ 05/12/17 14:30 (Symbicort 160-4.5 Inh) 2 puff Q12H INH 05/18/17 18:00 05/20/17 17:01 (Spiriva Inh) 18 mcg DAILY INH 05/18/17 18:00 (Cathflo Activase Inj) 2 mg Q2H PRN INTRACATH 05/19/17 21:45 05/19/17 22:09 (Lactulose Liq) 30 ml BID PO 05/20/17 21:00 05/23/17 20:25 (Ees 200 Mg/5 ml Liq) 100 mg Q8HR PO 05/20/17 14:00 05/24/17 14:46 (K-Lyte Cl Eff) 25 meq Q12H PO 05/21/17 09:00 05/24/17 10:09 (SoluMEDROL INJ) 40 mg Q12H IV PUSH 05/21/17 13:00 05/24/17 12:24 (Pulmicort Respule Neb) 0.5 mg Q12HR NEB NEB 05/21/17 08:00 05/24/17 08:00 Ceftriaxone Sodium 2000 mg/ Sodium Chloride 100 ml @ 200 mls/hr Q24H IV 05/21/17 10:00 05/28/17 09:59 05/24/17 10:10 (Flagyl) 500 mg Q8HR PO 05/23/17 14:00 05/24/17 14:45 (Duoneb Neb) 1 ampule Q6HR NEB NEB 05/24/17 10:15 05/24/17 16:12 Lines Line sites with no e.o infection Past Medical History COPD and tobacco abuse Alcohol abuse History of alcohol withdrawal seizures Tonsillectomy Allergies: Coded Allergies: No Known Allergies (Verified Allergy, Unknown, 04/27/17) Uncoded Allergies: STEROIDS (Allergy, Unknown, 07/13/14) Objective . Vital Signs Date Time Temp Pulse Resp B/P (MAP) Pulse Ox O2 Delivery O2 Flow Rate FiO2 05/24/17 12:00 98.2 105 32 115/74 (88) 96 05/24/17 12:00 105 05/24/17 10:00 103 38 120/76 (91) 100 05/24/17 10:00 103 05/24/17 08:00 40 05/24/17 08:00 117 05/24/17 08:00 98.0 117 22 101/73 (82) 70 05/24/17 08:00 100 T-piece 7.00 40 05/24/17 04:00 98.0 97 15 109/73 (85) 100 05/24/17 04:00 40 05/24/17 02:00 100 35 05/24/17 00:33 100 35 05/24/17 00:00 98.2 102 16 104/73 (83) 100 05/24/17 00:00 40 05/23/17 21:16 94 35 05/23/17 21:10 94 35 05/23/17 20:07 100 35 05/23/17 20:00 40 05/23/17 20:00 98.4 105 38 120/84 (96) 100 05/23/17 18:00 100 . Laboratory Tests Test 05/23/17 03:39 05/24/17 05:41 White Blood Count 19.6 TH/MM3 22.3 TH/MM3 Red Blood Count 2.51 MIL/MM3 3.02 MIL/MM3 Hemoglobin 8.6 GM/DL 10.1 GM/DL Hematocrit 26.1 % 31.8 % Mean Corpuscular Volume 104.0 FL 105.4 FL Mean Corpuscular Hemoglobin 34.2 PG 33.4 PG Mean Corpuscular Hemoglobin Concent 32.9 % 31.7 % Red Cell Distribution Width 24.1 % 24.2 % Platelet Count 150 TH/MM3 159 TH/MM3 Mean Platelet Volume 9.4 FL 10.6 FL Neutrophils (%) (Auto) 88.5 % Lymphocytes (%) (Auto) 4.7 % Monocytes (%) (Auto) 5.9 % Eosinophils (%) (Auto) 0.8 % Basophils (%) (Auto) 0.1 % Neutrophils # (Auto) 19.7 TH/MM3 Lymphocytes # (Auto) 1.1 TH/MM3 Monocytes # (Auto) 1.3 TH/MM3 Eosinophils # (Auto) 0.2 TH/MM3 Basophils # (Auto) 0.0 TH/MM3 CBC Comment DIFF FINAL Differential Comment Laboratory Tests Test 05/23/17 03:39 05/24/17 05:41 Blood Urea Nitrogen 20 MG/DL 27 MG/DL Creatinine 0.53 MG/DL 0.58 MG/DL Random Glucose 117 MG/DL 110 MG/DL Calcium Level 8.6 MG/DL 8.9 MG/DL Magnesium Level 1.1 MG/DL 1.6 MG/DL Sodium Level 146 MEQ/L 147 MEQ/L Potassium Level 3.1 MEQ/L 3.2 MEQ/L Chloride Level 106 MEQ/L 107 MEQ/L Carbon Dioxide Level 32.1 MEQ/L 32.4 MEQ/L Anion Gap 8 MEQ/L 8 MEQ/L Estimat Glomerular Filtration Rate 158 ML/MIN 142 ML/MIN Total Protein 6.5 GM/DL Albumin 3.5 GM/DL Alkaline Phosphatase 122 U/L Aspartate Amino Transf (AST/SGOT) 71 U/L Alanine Aminotransferase (ALT/SGPT) 51 U/L Total Bilirubin 0.8 MG/DL Imaging Chest X-Ray 05/21/17 06 Signed Impressions: Service Date/Time: Sunday, May 21, 2017 04:25 - CONCLUSION: 1. Cardiomegaly. Patchy alveolar disease characteristic of edema or pneumonia. There has been no significant change when compared to the prior exam. Fabrizio Odom MD Abdomen X-Ray 05/20/17 06 Signed Impressions: Service Date/Time: Saturday, May 20, 2017 03:20 - CONCLUSION: 1. Dilatation of the transverse colon. Significant air filled small bowel is not seen. On the prior exam, the small bowel was prominent. 2. Hazy densities in the abdomen which may suggest ascites. 3. Left lower lobe consolidation or atelectasis. Olu Herrera MD Abdomen/Pelvis CT 05/12/17 0000 Signed Impressions: Service Date/Time: Friday, May 12, 2017 17:56 - CONCLUSION: 1. Left lower lobe collapse and lingular consolidation. Endobronchial soft tissue within the left lower lobe, Mass versus mucus plugging are differential diagnostic considerations. 2. Body wall edema and ascites. 3. Nonobstructing right renal calculus. 4. Colitis with abnormal bowel wall thickening involving the ascending colon, and diffuse small bowel dilatation characteristic of an ileus. Ray Finney MD Chest Ultrasound 05/08/17 0000 Signed Impressions: Service Date/Time: Monday, May 08, 2017 13:01 - CONCLUSION: 1. There is a small left pleural effusion with insufficient volume for thoracentesis at this time. Ronaldo Howell MD Abdomen Fluoroscopy 05/01/17 0000 Signed Impressions: Service Date/Time: Monday, May 01, 2017 13:13 - CONCLUSION: Uncomplicated nasogastric tube placement as above. Zain Kumar MD Lower Extremity Ultrasound 04/28/17 0000 Signed Impressions: Service Date/Time: Friday, April 28, 2017 16:47 - CONCLUSION: Negative exam with no evidence of deep venous thrombosis. Johnathon White MD Chest CT 04/28/17 0000 Signed Impressions: Service Date/Time: Friday, April 28, 2017 11:03 - CONCLUSION: 1. Small bilateral pleural effusions with atelectasis in both lower lobes. There is also a focal area of groundglass opacity in the lingula that is nonspecific but could represent an infectious or inflammatory process. 2. Moderate size hiatal hernia with dilated and fluid-filled esophagus suggesting gastroesophageal reflux. The nasogastric tube distal tip is in the distal esophagus and should ideally be advanced into the stomach. Olu Triana MD Head CT 04/27/17 1017 Signed Impressions: Service Date/Time: Thursday, April 27, 2017 11:00 - CONCLUSION: 1. No acute intracranial abnormality. 2. Complete opacification left maxillary sinus. Keagan Shipman MD Renal Ultrasound 04/27/17 Signed Impressions: Service Date/Time: Thursday, April 27, 2017 23:50 - CONCLUSION: Negative renal sonogram. Rogerio Gunn MD Chest X-Ray 05/12/17 0600 Signed Impressions: Service Date/Time: Friday, May 12, 2017 03:49 - CONCLUSION: Upper lobe infiltrate with unchanged left lower lobe infiltrate. Rogerio Harris Jr., MD Abdomen/Pelvis CT 05/12/17 Signed Impressions: Service Date/Time: Friday, May 12, 2017 17:56 - CONCLUSION: 1. Left lower lobe collapse and lingular consolidation. Endobronchial soft tissue within the left lower lobe, Mass versus mucus plugging are differential diagnostic considerations. 2. Body wall edema and ascites. 3. Nonobstructing right renal calculus. 4. Colitis with abnormal bowel wall thickening involving the ascending colon, and diffuse small bowel dilatation characteristic of an ileus. Ray Finney MD Abdomen X-Ray 05/12/17 Signed Impressions: Service Date/Time: Friday, May 12, 2017 06:36 - CONCLUSION: 1. Reinsertion of the rectal tube which is coiled within the rectal vault. It may be kinked and not draining well. 2. Persistent gaseous distention of the colon although a slight decrease in the volume of gas. 3. New mildly dilated gas-filled loops of small bowel. Rogerio Harris Jr., MD Chest Ultrasound 05/08/17 Signed Impressions: Service Date/Time: Monday, May 08, 2017 13:01 - CONCLUSION: 1. There is a small left pleural effusion with insufficient volume for thoracentesis at this time. Ronaldo Howell MD Abdomen Fluoroscopy 05/01/17 0000 Signed Impressions: Service Date/Time: Monday, May 01, 2017 13:13 - CONCLUSION: Uncomplicated nasogastric tube placement as above. Zain Kumar MD Lower Extremity Ultrasound 04/28/17 0000 Signed Impressions: Service Date/Time: Friday, April 28, 2017 16:47 - CONCLUSION: Negative exam with no evidence of deep venous thrombosis. Johnathon White MD Chest CT 04/28/17 0000 Signed Impressions: Service Date/Time: Friday, April 28, 2017 11:03 - CONCLUSION: 1. Small bilateral pleural effusions with atelectasis in both lower lobes. There is also a focal area of groundglass opacity in the lingula that is nonspecific but could represent an infectious or inflammatory process. 2. Moderate size hiatal hernia with dilated and fluid-filled esophagus suggesting gastroesophageal reflux. The nasogastric tube distal tip is in the distal esophagus and should ideally be advanced into the stomach. Olu Triana MD Head CT 04/27/17 1017 Signed Impressions: Service Date/Time: Thursday, April 27, 2017 11:00 - CONCLUSION: 1. No acute intracranial abnormality. 2. Complete opacification left maxillary sinus. Keagan Shipman MD Renal Ultrasound 04/27/17 0000 Signed Impressions: Service Date/Time: Thursday, April 27, 2017 23:50 - CONCLUSION: Negative renal sonogram. Rogerio Gunn MD Physical Exam GENERAL: Awake and alert, on T-piece, restless, has restraints SKIN: No rashes. Ecchymoses. Cool and dry. HEAD: Atraumatic. Normocephalic. No temporal or scalp tenderness. EYES: Pupils equal round and reactive. Extraocular motions intact. [place] conjunctiva. No petechia or injection ENT: Nose without bleeding, purulent drainage or septal hematoma. Moist mucosa NECK: Trach site ok. CARDIOVASCULAR: Regular rate and rhythm without murmurs. RESPIRATORY: Clear to auscultation. Breath sounds equal bilaterally. No wheezes , rales, or rhonchi. GASTROINTESTINAL: Abdomen soft, non-tender, slightly distended. (+) BS, not guarding. PEG site ok MUSCULOSKELETAL: Extremities without clubbing, cyanosis. Anasarca, Pedal edema 3 +. Edema both UE much improved NEUROLOGICAL: Opens eyes, follows commands, moves all extremities. PSYCH: Calm, and cooperative : Young in place, urine looks clear IV line sites with no e.o infection. Assessment & Plan Remarks IMPRESSION Aspiration Pneumonia (vomiting due to Gaseous distention this am) s/p colonic decompression 05/12/17 and other times in this admission. - sputum C/S E coli Ileus S/P decompression - PMC vs ischemic colitis on path report Pseudomembranous colitis (r/o cdiff) COPD exacerbation Alcoholism Cirrhosis of liver. Acute metabolic encephalopathy PLAN Continue Rocephin - give 7 days, end date ordered in [facility] - sputum C/S with E coli Continue Flagyl IV (anaerobes and Cdiff coverage). Cdiff can be negative with use of barrier cream used in pericare. Needs IV flagyl as pt had N/V and GI issues yday. Monitor progress Weaning per CCM Clinically doing well from ID standpoint Violet Alcantar MD May 24, 2017 17:07
[2017-05-24] MEDS: MELATONIN 5 MG TAB PO SCH (21:15)
[2017-05-24] MEDS: HALOPERIDOL LACTATE 5 MG/ML AMP IV PRN (22:08)
[2017-05-24] MEDS ORDERED: OLANZapine ODT 5 MG TAB PO PRN (23:00)
[2017-05-25] VITALS (21 sets, daily range): BP systolic 104–140; BP diastolic 69–97; PULSE 88–113; RESP 19–37; TEMP 97.7–98.7; O2SAT 87–100
[2017-05-25] MEDS: RESP: ALBUTEROL 2.5 MG/IPRATROPIUM 0.5 MG NEB (SCH) NEB ×4 (02:35→21:31)
[2017-05-25] MEDS: HALOPERIDOL LACTATE 5 MG/ML AMP IV PRN ×3 (03:02→23:54)
[2017-05-25] MEDS: methylPREDNISolone SOD SUCC 40 MG/1 ML VIAL IV PUSH SCH ×2 (03:02→12:18)
[2017-05-25] MEDS: BUDESONIDE-FORMOTEROL 160/4.5 MCG INHALER INH SCH ×2 (05:14→18:46)
[2017-05-25] MEDS: ARTIFICIAL TEARS OPTH SOLN 15 ML BTL EACH EYE SCH ×3 (05:14→20:58)
[2017-05-25] MEDS: ERYTHROMYCIN ETHYLSUCCINATE 200 MG/5 ML SUSP 100 ML BOTTLE PO SCH ×3 (05:15→21:00)
[2017-05-25] MEDS: metroNIDAZOLE 500 MG TAB PO SCH ×3 (05:15→21:00)
[2017-05-25] MEDS: METOCLOPRAMIDE HCL 10 MG/2 ML VIAL IV PUSH SCH ×4 (05:15→20:59)
[2017-05-25 06:30] LABS: AUTOMATED NEUTROPHIL # 20.7 TH/MM3 (1.8-7.7); BASOPHIL % 0.1 % (0.0-2.0); HEMATOCRIT 29.1 % (39.0-51.0); HEMO FLAGS DIFF FINAL; LYMPH % 1.8 % (9.0-44.0); LYMPHOCYTE # 0.4 TH/MM3 (1.0-4.8); MEAN CELL VOLUME 106.9 FL (80.0-100.0); MEAN CORPUSCULAR HEMOGLOBIN 34.3 PG (27.0-34.0); MEAN CORPUSCULAR HGB CONC 32.1 % (32.0-36.0); MONO % 1.8 % (0.0-8.0); NEUT % 96.3 % (16.0-70.0); PLATELET COUNT 141 TH/MM3 (150-450); RED BLOOD COUNT 2.73 MIL/MM3 (4.50-5.90); RED CELL DISTRIBUTION WIDTH 22.9 % (11.6-17.2); WHITE BLOOD COUNT 21.5 TH/MM3 (4.0-11.0)
[2017-05-25 06:51] LABS: ALT (GPT) 50 U/L (12-78); ANION GAP 4 MEQ/L (5-15); AST (GOT) 46 U/L (15-37); BICARBONATE 30.6 MEQ/L (21.0-32.0); BLOOD UREA NITROGEN 29 MG/DL (7-18); CHLORIDE 113 MEQ/L (98-107); GLOMERULAR FILTRATION RATE 162 ML/MIN (>89); SODIUM (NA) 148 MEQ/L (136-145)
[2017-05-25 06:54] LABS: ALKALINE PHOSPHATASE 124 U/L (45-117); TOTAL BILIRUBIN ADULT 0.7 MG/DL (0.2-1.0)
[2017-05-25] MEDS: RESP: BUDESONIDE 0.5 MG/2 ML NEB NEB SCH ×2 (07:54→21:31)
[2017-05-25] MEDS: TIOTROPIUM BROMIDE 18 MCG INH INH SCH (09:00)
[2017-05-25] MEDS: LACTULOSE SYRUP 20 GM/30 ML CUP PO SCH ×2 (09:00→20:58)
[2017-05-25] MEDS: DOCUSATE SODIUM 50 MG/SENNA 8.6 MG TAB PO SCH ×2 (09:00→20:59)
[2017-05-25] MEDS: SODIUM CHLORIDE 0.9% FLUSH 10 ML FLUSH IVF SCH (09:00)
[2017-05-25] MEDS: REMOVE OLD PATCH T-DERMAL SCH (09:00)
[2017-05-25] MEDS: PANTOPRAZOLE SODIUM 40 MG VIAL IV PUSH SCH (09:20)
[2017-05-25] MEDS: cefTRIAXone INJ 2,000 MG in SODIUM CHLORIDE 0.9% INJ 100 ML IV SCH (09:20)
[2017-05-25] MEDS: FOLIC ACID 1 MG TAB PO SCH (09:20)
[2017-05-25] MEDS: MULTIVITAMIN TAB PO SCH (09:20)
[2017-05-25] MEDS: POTASSIUM CHLORIDE 25 MEQ EFFERVESCENT TAB PO SCH ×2 (09:20→20:58)
[2017-05-25] MEDS: THIAMINE HCL 100 MG TAB PO SCH (09:20)
[2017-05-25] MEDS: RIFAXIMIN 550 MG TAB PO SCH ×2 (09:20→20:58)
[2017-05-25] MEDS: GABAPENTIN 300 MG CAP PO SCH ×3 (09:20→18:46)
[2017-05-25] MEDS: NICOTINE 14 MG/24 HR PATCH T-DERMAL SCH (09:21)
[2017-05-25] MEDS: SODIUM CHLORIDE 0.9% FLUSH 10 ML FLUSH IV FLUSH SCH (09:21)
[2017-05-25] MEDS: CHLORHEXIDINE 0.12% (ORAL KIT) 15 ML CUP MT SCH ×2 (09:22→20:57)
--- NOTE | 2017-05-25 15:55 | HHI.HCPN ---
Reason for visit a. To assist with evaluation and management of symptoms including: dyspnea, agitation. b. To assist medical decision maker(s) with: better understanding of current medical conditions; weighing benefits/burdens of medical treatment options; making medical treatment decisions. . Subjective/Interval History Pt stable , s/p trach, PEG. Has been tolerating T-piece. WBC elevated 21.5 ; Remains on ceftriaxone, flagyl. Seen in room no visitors present, nurse present. He is alert, partially oriented . mouths words, at times speaks around trach. Oriented to self, know is at [facility] because of "breathing trouble". Knows he is in hospital "for awhile" not aware of length of stay or current date/month. Very limited insight to hospitalization. He does recall that family, including his son had been in to visit him. Cooperative. Wants to get up, go home. Explain he is weak, deconditioned, will require ongoing PT, and probably rehab. Explore ventilation , s/p trach. Explore how he would feel if he became ill again and needed a ventilator or other intervention again if he would want that, he says he will not get that sick again and wont need it. If mental status cont to improve, would continue to have discussions with him RE goals of treatment. will call family to provide update. . Family/friend interactions Call to son Jsoeph to provide update. Review of current condition, treatments ongoing, prognosis /possible trajectory going forward, placement likely to be required. He had questions RE the possibility of getting pt up to [place] with family, advise of known ground options medical transport vs private vehicle pending pt condition continues to improve. Advise pt may be able to participate more as mental status cont to improve. . Advance Directives Living Will: Never completed Health Care Surrogate: Never completed Durable Power of Global Supply Chain Director: Never completed Advance Directive Specifics Health Care Surrogate(s): Patient currently incapacitated to make his health care decisions. No written advanced directives. Search for estranged has not produced any contact via [employer], [employer] or social media search, family does not have contact information. Therefore according to [place] statutes, health care proxy decision making falls to majority of adult children, he has 2 sons - one son disabled and dependent for care center not able to participate. Other son, Joseph Webb is willing to serve as health care proxy decision maker. . Objective Vital Signs Date Time Temp Pulse Resp B/P (MAP) Pulse Ox O2 Delivery O2 Flow Rate FiO2 05/25/17 14:00 106 05/25/17 14:00 106 29 134/86 (102) 88 05/25/17 13:00 88 05/25/17 13:00 88 25 132/87 (102) 100 05/25/17 12:00 97.7 89 22 130/82 (98) 96 05/25/17 12:00 89 05/25/17 11:00 95 20 128/88 (101) 98 05/25/17 11:00 95 05/25/17 10:00 90 23 125/74 (91) 90 05/25/17 10:00 91 05/25/17 09:00 104 26 111/76 (88) 100 05/25/17 09:00 109 05/25/17 08:00 105 05/25/17 08:00 98.0 105 27 123/86 (98) 97 05/25/17 07:00 103 05/25/17 07:00 103 24 127/80 (96) 100 05/25/17 06:15 100 T-piece 7.00 40 05/25/17 06:00 102 05/25/17 04:00 98.7 99 19 121/77 (92) 97 05/25/17 04:00 99 05/25/17 02:00 96 05/25/17 00:00 98.7 90 20 104/69 (81) 92 05/25/17 00:00 90 05/24/17 22:00 103 05/24/17 20:00 101 05/24/17 20:00 98.5 101 30 135/85 (102) 100 05/24/17 19:41 100 T-piece 5.00 28 05/24/17 18:00 107 05/24/17 16:00 84 05/24/17 16:00 97.8 84 32 121/81 (94) 100 Intake & Output 05/25/17 05/25/17 07:00 19:00 Intake Total 833 ml Output Total 800 ml Balance 33 ml Intake Oral 0 ml IV Total 0 ml Tube Feeding 833 ml Output Urine Total 800 ml # Bowel Movements 0 Physical Exam CONSTITUTIONAL/GENERAL: This is an adequately nourished patient, awake cooperative TUBES/LINES/DRAINS: Peripheral IV upper extremity, Young catheter, Bilateral soft restraints upper extremities. SKIN: No jaundice, rashes, or lesions. No wounds seen anteriorly. Skin warm. CARDIOVASCULAR: RRR. no murmur . Trace peripheral edema RESPIRATORY/CHEST: Symmetric, mildly labored respirations.On t-piece. clear, diminished. Breath sounds equal bilaterally. GASTROINTESTINAL: Abdomen soft non distended, nontender, bowel sounds present. TF infusing via peg, dressing to peg clean/dry GENITOURINARY: Without palpable bladder distension. Young catheter in place. MUSCULOSKELETAL: Extremities without clubbing, cyanosis. 2 + edema to upper extremities. NEUROLOGICAL: Awake tracks examiner. Mouths words, speaks some around of trach. Oriented to self, hospital, illness. Very limited insight to hospitalization. Follows commands. PSYCHIATRIC: no anxiety evident . Diagnostic Tests Laboratory Laboratory Tests Test 05/23/17 03:39 05/24/17 05:41 05/24/17 20:03 05/25/17 05:49 White Blood Count 19.6 TH/MM3 (4.0-11.0) 22.3 TH/MM3 (4.0-11.0) 21.5 TH/MM3 (4.0-11.0) Red Blood Count 2.51 MIL/MM3 (4.50-5.90) 3.02 MIL/MM3 (4.50-5.90) 2.73 MIL/MM3 (4.50-5.90) Hemoglobin 8.6 GM/DL (13.0-17.0) 10.1 GM/DL (13.0-17.0) 9.4 GM/DL (13.0-17.0) Hematocrit 26.1 % (39.0-51.0) 31.8 % (39.0-51.0) 29.1 % (39.0-51.0) Mean Corpuscular Volume 104.0 FL (80.0-100.0) 105.4 FL (80.0-100.0) 106.9 FL (80.0-100.0) Mean Corpuscular Hemoglobin 34.2 PG (27.0-34.0) 33.4 PG (27.0-34.0) 34.3 PG (27.0-34.0) Mean Corpuscular Hemoglobin Concent 32.9 % (32.0-36.0) 31.7 % (32.0-36.0) 32.1 % (32.0-36.0) Red Cell Distribution Width 24.1 % (11.6-17.2) 24.2 % (11.6-17.2) 22.9 % (11.6-17.2) Platelet Count 150 TH/MM3 (150-450) 159 TH/MM3 (150-450) 141 TH/MM3 (150-450) Mean Platelet Volume 9.4 FL (7.0-11.0) 10.6 FL (7.0-11.0) 10.9 FL (7.0-11.0) Blood Urea Nitrogen 20 MG/DL (7-18) 27 MG/DL (7-18) 29 MG/DL (7-18) Creatinine 0.53 MG/DL (0.60-1.30) 0.58 MG/DL (0.60-1.30) 0.52 MG/DL (0.60-1.30) Random Glucose 117 MG/DL (74-106) 110 MG/DL (74-106) 181 MG/DL (74-106) Calcium Level 8.6 MG/DL (8.5-10.1) 8.9 MG/DL (8.5-10.1) 8.7 MG/DL (8.5-10.1) Magnesium Level 1.1 MG/DL (1.5-2.5) 1.6 MG/DL (1.5-2.5) Sodium Level 146 MEQ/L (136-145) 147 MEQ/L (136-145) 148 MEQ/L (136-145) Potassium Level 3.1 MEQ/L (3.5-5.1) 3.2 MEQ/L (3.5-5.1) 4.6 MEQ/L (3.5-5.1) 4.0 MEQ/L (3.5-5.1) Chloride Level 106 MEQ/L (98-107) 107 MEQ/L (98-107) 113 MEQ/L (98-107) Carbon Dioxide Level 32.1 MEQ/L (21.0-32.0) 32.4 MEQ/L (21.0-32.0) 30.6 MEQ/L (21.0-32.0) Anion Gap 8 MEQ/L (5-15) 8 MEQ/L (5-15) 4 MEQ/L (5-15) Estimat Glomerular Filtration Rate 158 ML/MIN (>89) 142 ML/MIN (>89) 162 ML/MIN (>89) Neutrophils (%) (Auto) 88.5 % (16.0-70.0) 96.3 % (16.0-70.0) Lymphocytes (%) (Auto) 4.7 % (9.0-44.0) 1.8 % (9.0-44.0) Monocytes (%) (Auto) 5.9 % (0.0-8.0) 1.8 % (0.0-8.0) Eosinophils (%) (Auto) 0.8 % (0.0-4.0) 0.0 % (0.0-4.0) Basophils (%) (Auto) 0.1 % (0.0-2.0) 0.1 % (0.0-2.0) Neutrophils # (Auto) 19.7 TH/MM3 (1.8-7.7) 20.7 TH/MM3 (1.8-7.7) Lymphocytes # (Auto) 1.1 TH/MM3 (1.0-4.8) 0.4 TH/MM3 (1.0-4.8) Monocytes # (Auto) 1.3 TH/MM3 (0-0.9) 0.4 TH/MM3 (0-0.9) Eosinophils # (Auto) 0.2 TH/MM3 (0-0.4) 0.0 TH/MM3 (0-0.4) Basophils # (Auto) 0.0 TH/MM3 (0-0.2) 0.0 TH/MM3 (0-0.2) CBC Comment DIFF FINAL DIFF FINAL Differential Comment Total Protein 6.5 GM/DL (6.4-8.2) 6.8 GM/DL (6.4-8.2) Albumin 3.5 GM/DL (3.4-5.0) 3.3 GM/DL (3.4-5.0) Alkaline Phosphatase 122 U/L (45-117) 124 U/L (45-117) Aspartate Amino Transf (AST/SGOT) 71 U/L (15-37) 46 U/L (15-37) Alanine Aminotransferase (ALT/SGPT) 51 U/L (12-78) 50 U/L (12-78) Total Bilirubin 0.8 MG/DL (0.2-1.0) 0.7 MG/DL (0.2-1.0) Result Diagram: 05/25/17 0549 05/25/17 0549 Imaging Last Impressions Chest X-Ray 05/24/17 06 Signed Impressions: Service Date/Time: May 03:26 - CONCLUSION: 1. Improved pulmonary edema 2. Left lower lobe atelectasis versus pneumonia. There has been no significant change when compared to the prior exam. Fabrizio Odom MD Abdomen X-Ray 05/20/17 06 Signed Impressions: Service Date/Time: Saturday, May 20, 2017 03:20 - CONCLUSION: 1. Dilatation of the transverse colon. Significant air filled small bowel is not seen. On the prior exam, the small bowel was prominent. 2. Hazy densities in the abdomen which may suggest ascites. 3. Left lower lobe consolidation or atelectasis. Olu Herrera MD Abdomen/Pelvis CT 05/12/17 0000 Signed Impressions: Service Date/Time: Friday, May 12, 2017 17:56 - CONCLUSION: 1. Left lower lobe collapse and lingular consolidation. Endobronchial soft tissue within the left lower lobe, Mass versus mucus plugging are differential diagnostic considerations. 2. Body wall edema and ascites. 3. Nonobstructing right renal calculus. 4. Colitis with abnormal bowel wall thickening involving the ascending colon, and diffuse small bowel dilatation characteristic of an ileus. Ray Finney MD Chest Ultrasound 05/08/17 0000 Signed Impressions: Service Date/Time: Monday, May 08, 2017 13:01 - CONCLUSION: 1. There is a small left pleural effusion with insufficient volume for thoracentesis at this time. Ronaldo Howell MD Abdomen Fluoroscopy 05/01/17 0000 Signed Impressions: Service Date/Time: Monday, May 01, 2017 13:13 - CONCLUSION: Uncomplicated nasogastric tube placement as above. Zain Kumar MD Lower Extremity Ultrasound 04/28/17 0000 Signed Impressions: Service Date/Time: Friday, April 28, 2017 16:47 - CONCLUSION: Negative exam with no evidence of deep venous thrombosis. Johnathon White MD Chest CT 04/28/17 0000 Signed Impressions: Service Date/Time: Friday, April 28, 2017 11:03 - CONCLUSION: 1. Small bilateral pleural effusions with atelectasis in both lower lobes. There is also a focal area of groundglass opacity in the lingula that is nonspecific but could represent an infectious or inflammatory process. 2. Moderate size hiatal hernia with dilated and fluid-filled esophagus suggesting gastroesophageal reflux. The nasogastric tube distal tip is in the distal esophagus and should ideally be advanced into the stomach. Olu Triana MD Head CT 04/27/17 1017 Signed Impressions: Service Date/Time: Thursday, April 27, 2017 11:00 - CONCLUSION: 1. No acute intracranial abnormality. 2. Complete opacification left maxillary sinus. Keagan Shipman MD Renal Ultrasound 04/27/17 0000 Signed Impressions: Service Date/Time: Thursday, April 27, 2017 23:50 - CONCLUSION: Negative renal sonogram. Rogerio Gunn MD Procedures 04/28 intubated 04/30 EGD 05/05 self extubated 05/06 decompressive colonoscopy 05/08 reintubated 05/12 decompressive colonoscopy 05/18 - extubated 05/19 tracheostomy 05/23 EGD w PEG . Assessment and Plan Disease Oriented Problem List: (1) Acute encephalopathy (2) Severe sepsis (3) COPD (chronic obstructive pulmonary disease) (4) Hyperammonemia (5) Hypoalbuminemia due to protein-calorie malnutrition (6) Hiatal hernia (7) Diverticulosis, sigmoid (8) Kidney stone on right side (9) Aspiration pneumonia (10) Hypokalemia (11) Hypomagnesemia (12) UTI (urinary tract infection) (13) Chronic alcoholism Symptom Scale: (1) Dyspnea 0-10 Scale: 0 (2) Malnutrition 0-10 Scale: Unable to quantify Comment: Albumin 3.1. (3) Encephalopathy 0-10 Scale: Unable to quantify Comment: more alert, mouthing words. (4) Anxiety 0-10 Scale: Unable to quantify Comment: easily agitated. Pertinent Non-Medical Issues Psychosocial:Patient estranged from second , but still legally to Caty Webb. 2 adult children, one disbaled, Other son Joseph Webb lives in [place], limited contact. Supported by mother, Dallas (lives local) and sister Zakia (an RN) lives in [place]. Family reports has struggled with alcoholism his whole life, not working. Been in [place] about 10 years. Spiritual: Yaz[employer] alyssa. Legal: Patient currently incapacitated to make his health care decisions. No written advanced directives. Search for estranged has not produced any contact via [employer] or [employer] search, family does not have contact information. Therefore according to [place] statutes, health care proxy decision making falls to majority of adult children, he has 2 sons - one son disabled and dependent for care center not able to participate. Other son, Joseph Webb is willing to serve as health care proxy decision maker. Ethical issues impacting care: No known concerns at this time. . Important Contacts * Joseph Webb, son/HCP-: [phone] (In [place] - will driving from [place] to [place] leaving 05/17/17 in AM.) * Dallas Webb, mother: * Zakia Oscar, sister: [phone] (In [place] - will driving with son to [place] leaving 05/17/17 in AM.) . Prognosis This patient was admitted for altered mental status. He has had ongoing hepatic encephalopathy and debility secondary to alcohol abuse. This admission he has been intubated twice, is currently being treated for aspiration pneumonia. GI following, pathology from colonoscopy biopsies pending. Overall prognosis for meaningful recovery and independent function is poor given his history. Possible he can survive current acute hospitalization but would likely require tracheostomy and PEG tube to continue invasive/aggressive measures. . Code Status: Full Code Plan * Legal decision maker: Patient currently incapacitated to make his health care decisions. No written advanced directives. Search for estranged Caty has not produced any contact via [employer] or [employer] search, family does not have contact information. Therefore according to [place] statutes, health care proxy decision making falls to majority of adult children , he has 2 sons - one son disabled and dependent for care center not able to participate. Other son, Joseph Webb is willing to serve as health care proxy decision maker. * FULL CODE * GOALS: goals aggressive at this time. As pt condition continues to improve he may be able to participate in goals/decision making * SYMPTOMS: No new medication recommendations at this time. --Dyspnea-second intubation this hospital admission for acute respiratory failure.+ Aspiration pneumonia, encephalopathy and inability to protect his airway;s/p trach, tolerating T-piece trials --Encephalopathy-hepatic, ? Sepsis. last ammonia level 45 despite lactulose, Xifaxan. Cont to be on Xifaxan, lactulose. still confused/agitated at times. --Malnutrition-patient with long history alcohol abuse chronic malnutrition likely given this diagnoses; albumin 3.1. SP PEG tube- tolerating TF --Anxiety/agitation-multifactorial, history EtOH abuse, had required Precedex drip on mechanical vent. More alert today, cooperative at times, though also reported to have episodes of agitation. * Palliative care will continue to follow during hospital course as condition evolves, to assist patient/decision-maker with understanding of medical conditions, weighing benefits/burdens of treatment options, for clarification of goals of treatment. Additionally will assist with any symptoms of palliative concern . Time Spent Total Floor Time (mins): 30 (d/w RN, exam, d/w son via phone ) Attestation To help prompt me to consider important information that might be impacting today's encounter and assessment, information from prior notes written by myself or my colleagues may have been "brought forward" into today's note. My signature on this note, however, is an attestation that I personally performed the exam, history, and/or decision-making noted today, and, unless otherwise indicated, the interactions with patient, family, and staff as well as the review of records all occurred today. I also attest that the listed assessment and stated plan reflect my best clinical judgment today based on the combination of historical information, prior notes, and today's exam/ interactions. When time spent is documented, it refers only to time spent today by the signer, or if indicated, combined time spent today by collaborating physician/nurse practitioner. Gregoria Loyd May 25, 2017 15:55
--- NOTE | 2017-05-25 17:12 | HHI.CCPN ---
Subjective Remarks/Hospital Course 61yM with h/o prior hepatic encephalopathy, etoh abuse, tobacco abuse, now admitted with weakness, fever, chills, worsening hypotension. called by hospitalist service overnight for clinical decline despite ivf resuscitation. Patient does complain of flank pain, but denies chest pain, abdominal pain. u/a +. started earlier on vanc/zosyn. has not voided. becoming worseningly agitated. unable to provide any additional information due to altered mental status. 04/28: Chart reviewed. Patient still quite agitated stating "I have to pee" patient has a Young catheter. Complaining of flank pain. Noted renal ultrasound negative. Currently on norepinephrine at 12 mg per minute. 04/29: Resting in bed in no acute distress. Currently on norepinephrine at 7 per minute for vasopressor support. Transfuse 2 units PRBC and 2 pack platelets overnight. Dilutional. Absolutely no signs of active bleeding. 04/30 Patient is sedated with Fentanyl and intubated. On Levophed 5 mics. Afebrile. For EGD today. 05/01 No events overnight. Sedated and intubated. On Levophed 4 mics. s/p EGD yesterday with shoed esophagitis, gastritis, food impaction in distal esophagus removed. 05/02: Afebrile. Off all vasopressors. NG tube advanced by IR yesterday. Feeding to be initiated today. Currently on fentanyl drip 05/03: Remains intubated sedated and not following commands remains on fentanyl infusion. Attempt CPAP trial if patient wakeful enough. Urine output minimal only 300 mL in 24 hours. Will give albumin and Bumex 05/04 Patient is sedated with Fentanyl and intubated. Afebrile. 05/05 Patient was self extubated last night. For possible decompressive colonoscopy today. Afebrile. 05/06 Patient is on 3L oxygen for decompressive colonoscopy today. On Precedex drip for agitation. CT abdomen/pelvis last night showed development of gaseous distention of the right and transverse colon with abrupt change in luminal dimension at the splenic flexure. There is a rectal tube in place and cannot differentiate between a focal obstruction/stricture versus decompression from the rectal tube. 05/07 Patient s/p decompressive colonoscopy last night KUB this morning showed decreased colonic distention. On 4L oxygen. 05/08 Patient was unresponsive on BIPAP this morning and was in resp distress he was subsequently intubated and placed on mechanical ventilation. CXR post intubation showed complete opacification of left hemithorax likely 2nd mucous plug 05/09 Patient is sedated with Fentanyl and intubated. Afebrile. 05/10 Patient remains sedated and intubated. Afebrile. Tolerating tube feeds 05/11: Tolerated PSV trials 3 hours today. Not tolerating tube feeding currently. KUB pending. Positive BM. Decreased urine output noted. 05/12: Lasted 1 hour on PSV trials today. Currently vomiting will be decompressed from above and below per GI today. Afebrile. Central line placed due to persistent hypotension 05/13: Permission from mother for bronchoscopy today for diagnosis left lower lobe on CAT scan of min/pelvis yesterday. Sample sent. Currently on linezolid , cefepime and Flagyl per infectious disease. 05/14: Patient remains intubated sedated, on sedation hold do not follow commands , but moving extremities. Initially intubated 04/28, self extubated 05/05, Re intubated for mucus plugging, AMS on 05/07 night. Combined vent day , mental status will not permit extubation. Copious yellow ETT secretions. 05/15: Gets agitated on CPAP. But intermittently follows commands. Good oxygen saturation. Chest x-ray shows improved aeration. Moderate secretions from ET tube but good cough. Will proceed with extubation. Remains full code 05/16: Patient was extubated yesterday but failed in about 1 hour due to stridor and tachypnea. Today off sedation mentation seems to be improved, tolerates CPAP with high settings but has bilateral crackles and coarse rhonchi. Family (son and daughter) starting in from [place]. Will be here tomorrow 05/17/17 and request the patient to be left intubated until they get here 05/17: Patient is more awake alert and appropriate in communicating even though on low-dose propofol and intubated. Waiting for family to arrive from [place] tonight. Possible weaning to extubation tomorrow 05/18: Awake alert following command on vent. Palliative care is meeting with family today. Once decision re: goals of care are made, most likely proceed with extubation 05/19: Patient was extubated yesterday and there myself under palliative care nurse practitioner Adalgisa Ellington had a detailed discussion with the patient. After talking to the family patient decided he wants to be full code and wants a tracheostomy and PEG tube done since this is his fourth reintubation. Currently intubated sedated tracheostomy today 05/20: Status post tracheostomy yesterday 05/19/17. Based on CPAP tolerating well now. We'll attempt T piece today. Discontinue Versed use propofol as needed. Labs pending 05/21: Remains intubated sedated. Tolerated CPAP 3 hours yesterday. Remains significantly fluid positive at least 2 KG since admission. Significant anasarca. Start on Bumex infusion. Chest x-ray shows fluid overload/pulmonary edema 05/22: Excellent diuresis with Bumex gtt. 6.8L in 24 hours and wt down by 5 kg, still kg up from admission weight. Tolerating TP. Possible PEG today 05/23: Currently patient is on TPs tolerating well. Attempts to talk. Up to stretcher chair today. Urine output more than 10 L on Bumex drip. Change to scheduled Bumex and one dose of Diamox 05/24: Tolerated TP all day, CPAP at night. >5L UO in 24 hours. We'll stop scheduled Bumex now, weight is down to admission weight. Use Bumex as needed 05/25: Patient able to talk with Passy-Ludlow valve. BUN/cr stable. WBC starting to trend down, Solu-Medrol reduced. Objective Vital Signs Date Time Temp Pulse Resp B/P (MAP) Pulse Ox O2 Delivery O2 Flow Rate FiO2 05/25/17 14:00 106 05/25/17 14:00 29 134/86 (102) 88 05/25/17 12:00 97.7 05/25/17 06:15 T-piece 7.00 40 Intake and Output 05/25/17 05/25/17 05/26/17 08:00 16:00 00:00 Intake Total 833 ml Output Total 800 ml Balance 33 ml Result Diagram: 05/25/17 0549 05/25/17 0549 Imaging Last Impressions Chest X-Ray 05/13/17 0000 Signed Impressions: Service Date/Time: Saturday, May 13, 2017 13:22 - CONCLUSION: Stable chest appearance. Nasogastric tube in the distal esophagus Olu Rodriguez MD Abdomen/Pelvis CT 05/12/17 Signed Impressions: Service Date/Time: Friday, May 12, 2017 17:56 - CONCLUSION: 1. Left lower lobe collapse and lingular consolidation. Endobronchial soft tissue within the left lower lobe, Mass versus mucus plugging are differential diagnostic considerations. 2. Body wall edema and ascites. 3. Nonobstructing right renal calculus. 4. Colitis with abnormal bowel wall thickening involving the ascending colon, and diffuse small bowel dilatation characteristic of an ileus. Ray Finney MD Abdomen X-Ray 05/12/17 Signed Impressions: Service Date/Time: Friday, May 12, 2017 06:36 - CONCLUSION: 1. Reinsertion of the rectal tube which is coiled within the rectal vault. It may be kinked and not draining well. 2. Persistent gaseous distention of the colon although a slight decrease in the volume of gas. 3. New mildly dilated gas-filled loops of small bowel. Rogerio Harris Jr., MD Chest Ultrasound 05/08/17 Signed Impressions: Service Date/Time: Monday, May 08, 2017 13:01 - CONCLUSION: 1. There is a small left pleural effusion with insufficient volume for thoracentesis at this time. Ronaldo Howell MD Abdomen Fluoroscopy 05/01/17 Signed Impressions: Service Date/Time: Monday, May 01, 2017 13:13 - CONCLUSION: Uncomplicated nasogastric tube placement as above. Zain Kumar MD Lower Extremity Ultrasound 04/28/17 0000 Signed Impressions: Service Date/Time: Friday, April 28, 2017 16:47 - CONCLUSION: Negative exam with no evidence of deep venous thrombosis. Johnathon White MD Chest CT 04/28/17 0000 Signed Impressions: Service Date/Time: Friday, April 28, 2017 11:03 - CONCLUSION: 1. Small bilateral pleural effusions with atelectasis in both lower lobes. There is also a focal area of groundglass opacity in the lingula that is nonspecific but could represent an infectious or inflammatory process. 2. Moderate size hiatal hernia with dilated and fluid-filled esophagus suggesting gastroesophageal reflux. The nasogastric tube distal tip is in the distal esophagus and should ideally be advanced into the stomach. Olu Triana MD Head CT 04/27/17 1017 Signed Impressions: Service Date/Time: Thursday, April 27, 2017 11:00 - CONCLUSION: 1. No acute intracranial abnormality. 2. Complete opacification left maxillary sinus. Keagan Shipman MD Renal Ultrasound 04/27/17 0000 Signed Impressions: Service Date/Time: Thursday, April 27, 2017 23:50 - CONCLUSION: Negative renal sonogram. Rogerio Gunn MD Objective Remarks GENERAL: 61 year old male tolerating TP, able to talk with PM valve SKIN: Warm and dry. No rash HEAD: Normocephalic. EYES: No scleral icterus. Pupils are round 3 mm bilaterally and reactive ENT: Oral cavity is dry NECK: Supple, trachea midline. No JVD or lymphadenopathy. New trach in place with no significant bleeding CARDIOVASCULAR: RRR. S1, S2 no S4 without murmur RESPIRATORY: Breath sounds equal bilaterally. No accessory muscle use. GASTROINTESTINAL: No guarding. No rigidity. Hypoactive bowel sounds appreciated throughout. MSK: Anasarca significantly improved oriented to person and place today NEURO: Awake alert on the vent, follows commands moves all extremities. Date of Insertion: Apr 28, 2017 Line: Central Venous Catheter Side: Right Location: Femoral A/P Assessment and Plan Neuro/Psych: Acute encephalopathy likely secondary to EtOH withdrawal/sepsis/hyperammonemia Alcohol dependence CT brain 04/27 revealed left maxillary sinusitis otherwise no acute intra- cranial findings Patient does have a history of EtOH withdrawal seizures. Seizure precautions Thiamine, folate and multivitamin daily Neuro status slowly improving CV: Lactic acidosis- cleared Fluid overload Monitor HR and BP keep MAP>65mmHg Bumex DCd 05/24/17 Resp: Respiratory failure- intubated 04/28, self extubated 05/05 reintubated 05/08. Extubated again on 05/15 and 05/18 with re intubation s/p Perc Trach 05/19/17 COPD exacerbation Ongoing tobaccoism s/p Perc Trach 05/19/17. (Skyla Raines/Ken). Patient wanted full code including tracheostomy and PEG tube placement. Reduce solumedrol to 40 mg qd. inhaled budesonide Albuterol/ipratropium aerosols every 6 hours and albuterol aerosols every 2 hours. PRN TP 26/02 . Pulmonology consult for chronic trach management s/p Bronch with BAL 05/08: Thick secretions/mucous plug left main stem bronchus suctioned to clear CXR post bronch showed improved aeration left lung. Mucous plugging left lower lobe on CAT scan 05/12. s/p bronchoscopy 05/13 with removal of mucous plug. Nicotine patch 14 mg daily. GI: Hyperammonemia Colonic Ileus, small bowel ileus Hypoalbuminemia- mild protein calorie malnutrition Hepatic steatosis Ileus improving clinically and on KUB, tube feeds restarted by GI. Having bowel movements PEG 05/22, tolerating tube feeds s/p decompressive colonoscopy 05/06: Stool throughout the colon, Decompression colon tube was placed s/p EGD 04/30: Esophagitis, gastritis, food impaction in distal esophagus removed. Pantoprazole for GI prophylaxis. Docusate sodium/senna 1 tablet twice a day for bowel regimen. Continue Reglan Imaging studies: CT abdomen/pelvis 05/12 revealed thickening ascending colon/small bowel dilatation/ileus. KUB 05/20 interval improvement in ileus KUB 05/18: Worsening ileus KUB 05/14 Improving bowel distention KUB 05/09: Mild improvements in bowel gas pattern. KUB 05/07: Decreased colonic distention KUB abdomen 05/04 showed severe ileus, cecum dilated to 10 cm 05/05 CT abdomen/pelvis: Gaseous distention of the right and transverse colon with abrupt change in luminal dimension at the splenic flexure. Rectal tube in place and cannot differentiate between a focal obstruction/ stricture versus decompression from the rectal tube. : Right kidney nonobstructing stone 3 mm Renal ultrasound revealed no hydronephrosis Monitor renal function, I/O's, electrolytes replacement per protocol. Bumex DCd Endo: Hypokalemia hypomagnesemia Sliding-scale insulin to maintain euglycemia with Accu-Cheks every 6 hours with low regimen with Novolin R Electrolyte Replacement per protocol Heme: Leukocytosis Macrocytic anemia Patient was transfused 2 pack platelets and 2 PRBC 04/28. Follow CBC daily. Monitor trends. ID: Possible C. difficile colitis Aspiration pneumonia, E Coli in sputum Per infectious disease on ceftriaxone and metronidazole. Linezolid DCd 05/16/17 s/p Zosyn 04/27- onitor for signs of infections ( Fever, WBC) Afebrile, Follow up on BAL results 05/09 and 05/13- NGTD. Sputum E Coli-S to cefepime Blood cultures 2 -04/27 -no growth to date Urine culture - 04/27 -50 - 100,000 mixed gram-positive Sputum 04/28- normal resp andrea Urine pneumococcal and Legionella antigens negative MSK: PT/OTevaluate and treat. Up to chair Access -RIJ CVL placed 05/12-DCd Prophylaxis - GI - pantoprazole - DVT - SCD/ Heparin SQ , Level 2 Full code now. s/p trach 05/19/17. Tolerating TP well 26/02. Consult [facility] to assume care in am with pulm consult. Transfer to step down when bed available Esteban Raines MD May 25, 2017 17:12
--- NOTE | 2017-05-25 17:24 | HHI.IDPN ---
Subjective Subjective Remarks ID COVERAGE Chart reviewed is a 61y CM with PMHx of ETOH abuse, prior hepatic encephalopathy, chronic alcoholism, ETOH withdrawal seizures who presented with weakness, dizziness, and having a fall and not being able to get up, per EMR admitted . Since admission, has had complicated hospital course, has been reintubated at least 4x, ans subsequently underwent tracheostomy 05/19. ALso has had problems with abdominal distension, N/V, has had at least 2 decompressive colonoscopies, last one showing findings suggestive of either ischemic colitis or PMC. Notes reviewed D/W RN On T-piece Temps ok Had excellent diuresis last 24 hours Awake and calm, following commands Passed swallowing test - pureed, andre consistency liquid Antibiotics Ceftriaxone IV Flagyl IV I attest I obtained, reviewed or updated the home meds and current meds (for name, dose, freq and route). Current Medications Medications (Trade) Dose Ordered Sig/Brenda Route Start Time Stop Time Status Last Admin (Neurontin) 300 mg TID PO 04/27/17 13:00 Future hold 05/24/17 12:24 (Tylenol) 650 mg Q4H PRN PO 04/27/17 12:30 05/21/17 03:20 (Compazine Supp) 25 mg Q12H PRN RECTAL 04/27/17 12:30 (Narcan Inj) 0.4 mg UNSCH PRN IV PUSH 04/27/17 12:30 (Beena-Colace) 1 tab BID PO 04/27/17 21:00 Future hold 05/23/17 20:25 (Milk Of Magnesia Liq) 30 ml Q12H PRN PO 04/27/17 12:30 (Senokot) 17.2 mg Q12H PRN PO 04/27/17 12:30 (Dulcolax Supp) 10 mg DAILY PRN RECTAL 04/27/17 12:30 (Xifaxan) 550 mg BID PO 04/27/17 21:00 05/24/17 10:09 (Catapres) 0.1 mg Q6H PRN PO 04/27/17 12:30 (Habitrol 14 Mg Patch.24 Hr) 1 patch DAILY T-DERMAL 04/28/17 09:00 05/24/17 10:13 Miscellaneous Information 1 DAILY T-DERMAL 04/28/17 09:00 05/24/17 09:00 Miscellaneous Information Patient in critical care unit? Ass... [id number] .XX 04/27/17 17:30 Potassium Chloride 100 ml @ 50 mls/hr Q2H PRN IV 04/28/17 07:15 05/21/17 06:33 Potassium Chloride 100 ml @ 50 mls/hr Q2H PRN IV 04/28/17 07:15 05/23/17 16:44 (K-Lyte Cl Eff) 50 meq UNSCH PRN PO 04/28/17 07:15 05/24/17 14:45 Potassium Chloride 100 ml @ 25 mls/hr UNSCH PRN IV 04/28/17 07:15 05/21/17 08:58 Potassium Chloride 100 ml @ 50 mls/hr Q2H PRN IV 04/28/17 07:15 05/22/17 12:40 Magnesium Sulfate 4 gm/Sodium Chloride 100 ml @ 50 mls/hr UNSCH PRN IV 04/28/17 07:15 05/23/17 05:30 (Mag-Ox) 800 mg UNSCH PRN PO 04/28/17 07:15 Magnesium Sulfate 2 gm/Sodium Chloride 100 ml @ 50 mls/hr UNSCH PRN IV 04/28/17 07:15 05/20/17 03:33 (K-Phos) 2,000 mg Q4H PRN PO 04/28/17 07:15 Sodium Phosphate 30 mmol/Sodium Chloride 250 ml @ 42 mls/hr UNSCH PRN IV 04/28/17 07:15 05/10/17 10:31 (K-Phos) 2,000 mg UNSCH PRN PO/TUBE 04/28/17 07:15 Potassium Phosphate 30 mmol/ Sodium Chloride 260 ml @ 42 mls/hr UNSCH PRN IV 04/28/17 07:15 (Peridex 0.12% Liq) 15 ml BID@08,20 MT 04/28/17 20:00 05/23/17 20:00 (Tears Naturale Opth Soln) 1 drop Q8HR EACH EYE 04/28/17 14:00 05/24/17 14:46 (Protonix Inj) 40 mg DAILY IV PUSH 04/28/17 09:30 05/24/17 10:08 (NS Flush) DAILY IVF 04/29/17 15:45 10/19/17 10:11 (NS Flush) UNSCH PRN IVF 04/29/17 15:45 05/17/17 08:12 (Vitamin B1) 100 mg DAILY PO 04/30/17 09:15 05/24/17 10:08 (Theragran) 1 tab DAILY PO 04/30/17 09:15 05/24/17 10:09 (Folate) 1 mg DAILY PO 04/30/17 09:15 05/24/17 10:10 (Heparin Inj) 5,000 units Q12HR SQ 05/08/17 21:00 Future Hold 05/18/17 09:48 (Albuterol Neb) 2.5 mg Q2HR NEB PRN NEB 05/11/17 13:45 (Reglan Inj) 10 mg Q8HR IV PUSH 05/12/17 14:00 05/24/17 14:45 (NS Flush) DAILY IV FLUSH 05/13/17 09:00 05/23/17 09:52 (NS Flush) UNSCH PRN IV FLUSH 05/12/17 14:30 05/20/17 13:12 (Brethine Inj) 1 mg UNSCH PRN SQ 05/12/17 14:30 (Symbicort 160-4.5 Inh) 2 puff Q12H INH 05/18/17 18:00 05/20/17 17:01 (Spiriva Inh) 18 mcg DAILY INH 05/18/17 18:00 (Cathflo Activase Inj) 2 mg Q2H PRN INTRACATH 05/19/17 21:45 05/19/17 22:09 (Lactulose Liq) 30 ml BID PO 05/20/17 21:00 05/23/17 20:25 (Ees 200 Mg/5 ml Liq) 100 mg Q8HR PO 05/20/17 14:00 05/24/17 14:46 (K-Lyte Cl Eff) 25 meq Q12H PO 05/21/17 09:00 05/24/17 10:09 (SoluMEDROL INJ) 40 mg Q12H IV PUSH 05/21/17 13:00 05/24/17 12:24 (Pulmicort Respule Neb) 0.5 mg Q12HR NEB NEB 05/21/17 08:00 05/24/17 08:00 Ceftriaxone Sodium 2000 mg/ Sodium Chloride 100 ml @ 200 mls/hr Q24H IV 05/21/17 10:00 05/28/17 09:59 05/24/17 10:10 (Flagyl) 500 mg Q8HR PO 05/23/17 14:00 05/24/17 14:45 (Duoneb Neb) 1 ampule Q6HR NEB NEB 05/24/17 10:15 05/24/17 16:12 Lines Line sites with no e.o infection Past Medical History COPD and tobacco abuse Alcohol abuse History of alcohol withdrawal seizures Tonsillectomy Allergies: Coded Allergies: No Known Allergies (Verified Allergy, Unknown, 04/27/17) Uncoded Allergies: STEROIDS (Allergy, Unknown, 07/13/14) Objective . Vital Signs Date Time Temp Pulse Resp B/P (MAP) Pulse Ox O2 Delivery O2 Flow Rate FiO2 05/25/17 14:00 106 05/25/17 14:00 106 29 134/86 (102) 88 05/25/17 13:00 88 05/25/17 13:00 88 25 132/87 (102) 100 05/25/17 12:00 97.7 89 22 130/82 (98) 96 05/25/17 12:00 89 05/25/17 11:00 95 20 128/88 (101) 98 05/25/17 11:00 95 05/25/17 10:00 90 23 125/74 (91) 90 05/25/17 10:00 91 05/25/17 09:00 104 26 111/76 (88) 100 05/25/17 09:00 109 05/25/17 08:00 105 05/25/17 08:00 98.0 105 27 123/86 (98) 97 05/25/17 07:00 103 05/25/17 07:00 103 24 127/80 (96) 100 05/25/17 06:15 100 T-piece 7.00 40 05/25/17 06:00 102 05/25/17 04:00 98.7 99 19 121/77 (92) 97 05/25/17 04:00 99 05/25/17 02:00 96 05/25/17 00:00 98.7 90 20 104/69 (81) 92 05/25/17 00:00 90 05/24/17 22:00 103 05/24/17 20:00 101 05/24/17 20:00 98.5 101 30 135/85 (102) 100 05/24/17 19:41 100 T-piece 5.00 28 05/24/17 18:00 107 . Laboratory Tests Test 05/24/17 05:41 05/25/17 05:49 White Blood Count 22.3 TH/MM3 21.5 TH/MM3 Red Blood Count 3.02 MIL/MM3 2.73 MIL/MM3 Hemoglobin 10.1 GM/DL 9.4 GM/DL Hematocrit 31.8 % 29.1 % Mean Corpuscular Volume 105.4 FL 106.9 FL Mean Corpuscular Hemoglobin 33.4 PG 34.3 PG Mean Corpuscular Hemoglobin Concent 31.7 % 32.1 % Red Cell Distribution Width 24.2 % 22.9 % Platelet Count 159 TH/MM3 141 TH/MM3 Mean Platelet Volume 10.6 FL 10.9 FL Neutrophils (%) (Auto) 88.5 % 96.3 % Lymphocytes (%) (Auto) 4.7 % 1.8 % Monocytes (%) (Auto) 5.9 % 1.8 % Eosinophils (%) (Auto) 0.8 % 0.0 % Basophils (%) (Auto) 0.1 % 0.1 % Neutrophils # (Auto) 19.7 TH/MM3 20.7 TH/MM3 Lymphocytes # (Auto) 1.1 TH/MM3 0.4 TH/MM3 Monocytes # (Auto) 1.3 TH/MM3 0.4 TH/MM3 Eosinophils # (Auto) 0.2 TH/MM3 0.0 TH/MM3 Basophils # (Auto) 0.0 TH/MM3 0.0 TH/MM3 CBC Comment DIFF FINAL DIFF FINAL Differential Comment Laboratory Tests Test 05/24/17 05:41 05/24/17 20:03 05/25/17 05:49 Blood Urea Nitrogen 27 MG/DL 29 MG/DL Creatinine 0.58 MG/DL 0.52 MG/DL Random Glucose 110 MG/DL 181 MG/DL Total Protein 6.5 GM/DL 6.8 GM/DL Albumin 3.5 GM/DL 3.3 GM/DL Calcium Level 8.9 MG/DL 8.7 MG/DL Magnesium Level 1.6 MG/DL Alkaline Phosphatase 122 U/L 124 U/L Aspartate Amino Transf (AST/SGOT) 71 U/L 46 U/L Alanine Aminotransferase (ALT/SGPT) 51 U/L 50 U/L Total Bilirubin 0.8 MG/DL 0.7 MG/DL Sodium Level 147 MEQ/L 148 MEQ/L Potassium Level 3.2 MEQ/L 4.6 MEQ/L 4.0 MEQ/L Chloride Level 107 MEQ/L 113 MEQ/L Carbon Dioxide Level 32.4 MEQ/L 30.6 MEQ/L Anion Gap 8 MEQ/L 4 MEQ/L Estimat Glomerular Filtration Rate 142 ML/MIN 162 ML/MIN Imaging Chest X-Ray 05/21/17 0600 Signed Impressions: Service Date/Time: Sunday, May 21, 2017 04:25 - CONCLUSION: 1. Cardiomegaly. Patchy alveolar disease characteristic of edema or pneumonia. There has been no significant change when compared to the prior exam. Fabrizio Odom MD Abdomen X-Ray 05/20/17 0600 Signed Impressions: Service Date/Time: Saturday, May 20, 2017 03:20 - CONCLUSION: 1. Dilatation of the transverse colon. Significant air filled small bowel is not seen. On the prior exam, the small bowel was prominent. 2. Hazy densities in the abdomen which may suggest ascites. 3. Left lower lobe consolidation or atelectasis. Olu Herrera MD Abdomen/Pelvis CT 05/12/17 0000 Signed Impressions: Service Date/Time: Friday, May 12, 2017 17:56 - CONCLUSION: 1. Left lower lobe collapse and lingular consolidation. Endobronchial soft tissue within the left lower lobe, Mass versus mucus plugging are differential diagnostic considerations. 2. Body wall edema and ascites. 3. Nonobstructing right renal calculus. 4. Colitis with abnormal bowel wall thickening involving the ascending colon, and diffuse small bowel dilatation characteristic of an ileus. Ray Finney MD Chest Ultrasound 05/08/17 0000 Signed Impressions: Service Date/Time: Monday, May 08, 2017 13:01 - CONCLUSION: 1. There is a small left pleural effusion with insufficient volume for thoracentesis at this time. Ronaldo Howell MD Abdomen Fluoroscopy 05/01/17 0000 Signed Impressions: Service Date/Time: Monday, May 01, 2017 13:13 - CONCLUSION: Uncomplicated nasogastric tube placement as above. Zain Kumar MD Lower Extremity Ultrasound 04/28/17 0000 Signed Impressions: Service Date/Time: Friday, April 28, 2017 16:47 - CONCLUSION: Negative exam with no evidence of deep venous thrombosis. Johnathon White MD Chest CT 04/28/17 0000 Signed Impressions: Service Date/Time: Friday, April 28, 2017 11:03 - CONCLUSION: 1. Small bilateral pleural effusions with atelectasis in both lower lobes. There is also a focal area of groundglass opacity in the lingula that is nonspecific but could represent an infectious or inflammatory process. 2. Moderate size hiatal hernia with dilated and fluid-filled esophagus suggesting gastroesophageal reflux. The nasogastric tube distal tip is in the distal esophagus and should ideally be advanced into the stomach. Olu Triana MD Head CT 04/27/17 1017 Signed Impressions: Service Date/Time: Thursday, April 27, 2017 11:00 - CONCLUSION: 1. No acute intracranial abnormality. 2. Complete opacification left maxillary sinus. Keagan Shipman MD Renal Ultrasound 04/27/17 0000 Signed Impressions: Service Date/Time: Thursday, April 27, 2017 23:50 - CONCLUSION: Negative renal sonogram. Rogerio Gunn MD Chest X-Ray 05/12/17 0600 Signed Impressions: Service Date/Time: Friday, May 12, 2017 03:49 - CONCLUSION: Upper lobe infiltrate with unchanged left lower lobe infiltrate. Rogerio Harris Jr., MD Abdomen/Pelvis CT 05/12/17 0000 Signed Impressions: Service Date/Time: Friday, May 12, 2017 17:56 - CONCLUSION: 1. Left lower lobe collapse and lingular consolidation. Endobronchial soft tissue within the left lower lobe, Mass versus mucus plugging are differential diagnostic considerations. 2. Body wall edema and ascites. 3. Nonobstructing right renal calculus. 4. Colitis with abnormal bowel wall thickening involving the ascending colon, and diffuse small bowel dilatation characteristic of an ileus. Ray Finney MD Abdomen X-Ray 05/12/17 0000 Signed Impressions: Service Date/Time: Friday, May 12, 2017 06:36 - CONCLUSION: 1. Reinsertion of the rectal tube which is coiled within the rectal vault. It may be kinked and not draining well. 2. Persistent gaseous distention of the colon although a slight decrease in the volume of gas. 3. New mildly dilated gas-filled loops of small bowel. Rogerio Harris Jr., MD Chest Ultrasound 05/08/17 0000 Signed Impressions: Service Date/Time: Monday, May 08, 2017 13:01 - CONCLUSION: 1. There is a small left pleural effusion with insufficient volume for thoracentesis at this time. Ronaldo Howell MD Abdomen Fluoroscopy 05/01/17 0000 Signed Impressions: Service Date/Time: Monday, May 01, 2017 13:13 - CONCLUSION: Uncomplicated nasogastric tube placement as above. Zain Kumar MD Lower Extremity Ultrasound 04/28/17 0000 Signed Impressions: Service Date/Time: Friday, April 28, 2017 16:47 - CONCLUSION: Negative exam with no evidence of deep venous thrombosis. Johnathon White MD Chest CT 04/28/17 0000 Signed Impressions: Service Date/Time: Friday, April 28, 2017 11:03 - CONCLUSION: 1. Small bilateral pleural effusions with atelectasis in both lower lobes. There is also a focal area of groundglass opacity in the lingula that is nonspecific but could represent an infectious or inflammatory process. 2. Moderate size hiatal hernia with dilated and fluid-filled esophagus suggesting gastroesophageal reflux. The nasogastric tube distal tip is in the distal esophagus and should ideally be advanced into the stomach. Olu Triana MD Head CT 04/27/17 1017 Signed Impressions: Service Date/Time: Thursday, April 27, 2017 11:00 - CONCLUSION: 1. No acute intracranial abnormality. 2. Complete opacification left maxillary sinus. Keagan Shipman MD Renal Ultrasound 04/27/17 0000 Signed Impressions: Service Date/Time: Thursday, April 27, 2017 23:50 - CONCLUSION: Negative renal sonogram. Rogerio Gunn MD Physical Exam GENERAL: Awake and alert, on T-piece, NAd SKIN: No rashes. Ecchymoses. Cool and dry. HEAD: Atraumatic. Normocephalic. No temporal or scalp tenderness. EYES: Pupils equal round and reactive. Extraocular motions intact. [place] conjunctiva. No petechia or injection ENT: Nose without bleeding, purulent drainage or septal hematoma. Moist mucosa NECK: Trach site ok. CARDIOVASCULAR: Regular rate and rhythm without murmurs. RESPIRATORY: Clear to auscultation. Breath sounds equal bilaterally. No wheezes , rales, or rhonchi. GASTROINTESTINAL: Abdomen soft, non-tender, slightly distended. (+) BS, not guarding. PEG site ok MUSCULOSKELETAL: Extremities without clubbing, cyanosis. Anasarca, Pedal edema 3 +. Edema both UE much improved NEUROLOGICAL: Opens eyes, follows commands, moves all extremities. PSYCH: Calm, and cooperative : Young in place, urine looks clear IV line sites with no e.o infection. Assessment & Plan Remarks IMPRESSION Aspiration Pneumonia (vomiting due to Gaseous distention this am) s/p colonic decompression 05/12/17 and other times in this admission. - sputum C/S E coli Ileus S/P decompression - PMC vs ischemic colitis on path report Pseudomembranous colitis (r/o cdiff) COPD exacerbation Alcoholism Cirrhosis of liver. Acute metabolic encephalopathy leukocytosis, still high, but slightly lower PLAN Continue Rocephin - give 7 days, end date ordered in [facility] Continue Flagyl IV (anaerobes and Cdiff coverage). Cdiff can be negative with use of barrier cream used in pericare. - end date ordered in [facility] Monitor progress Clinically doing well from ID standpoint D/W Violet Tom MD May 25, 2017 17:24
[2017-05-25] MEDS: MELATONIN 5 MG TAB PO SCH (20:58)
[2017-05-26] VITALS (10 sets, daily range): BP systolic 117–129; BP diastolic 67–83; PULSE 80–116; RESP 20; TEMP 97.9–99.3; O2SAT 94–100
[2017-05-26] MEDS: HALOPERIDOL LACTATE 5 MG/ML AMP IV PRN ×3 (05:10→21:52)
[2017-05-26] MEDS: RESP: ALBUTEROL 2.5 MG/IPRATROPIUM 0.5 MG NEB (SCH) NEB ×4 (05:18→20:01)
[2017-05-26] MEDS: ARTIFICIAL TEARS OPTH SOLN 15 ML BTL EACH EYE SCH ×3 (06:00→21:53)
[2017-05-26] MEDS: METOCLOPRAMIDE HCL 10 MG/2 ML VIAL IV PUSH SCH ×3 (06:24→21:51)
[2017-05-26] MEDS: metroNIDAZOLE 500 MG TAB PO SCH ×3 (06:24→21:52)
[2017-05-26] MEDS: ERYTHROMYCIN ETHYLSUCCINATE 200 MG/5 ML SUSP 100 ML BOTTLE PO SCH ×3 (06:24→21:53)
[2017-05-26] MEDS: BUDESONIDE-FORMOTEROL 160/4.5 MCG INHALER INH SCH ×2 (06:25→18:07)
[2017-05-26 07:07] LABS: BASOPHIL % 0.2 % (0.0-2.0); EOSINOPHIL # 0.3 TH/MM3 (0-0.4); EOSINOPHIL % 1.7 % (0.0-4.0); HEMATOCRIT 25.6 % (39.0-51.0); HEMO FLAGS DIFF FINAL; LYMPH % 5.4 % (9.0-44.0); LYMPHOCYTE # 0.9 TH/MM3 (1.0-4.8); MEAN CELL VOLUME 106.9 FL (80.0-100.0); MEAN CORPUSCULAR HEMOGLOBIN 34.2 PG (27.0-34.0); MONO % 6.6 % (0.0-8.0); NEUT % 86.1 % (16.0-70.0); PLATELET COUNT 145 TH/MM3 (150-450); RED CELL DISTRIBUTION WIDTH 23.7 % (11.6-17.2); WHITE BLOOD COUNT 17.4 TH/MM3 (4.0-11.0)
[2017-05-26] MEDS: CHLORHEXIDINE 0.12% (ORAL KIT) 15 ML CUP MT SCH ×2 (08:00→20:00)
[2017-05-26] MEDS: LACTULOSE SYRUP 20 GM/30 ML CUP PO SCH ×2 (08:48→21:51)
[2017-05-26] MEDS: NICOTINE 14 MG/24 HR PATCH T-DERMAL SCH (08:49)
[2017-05-26] MEDS: REMOVE OLD PATCH T-DERMAL SCH (08:50)
[2017-05-26] MEDS: PANTOPRAZOLE SODIUM 40 MG VIAL IV PUSH SCH (08:53)
[2017-05-26] MEDS: cefTRIAXone INJ 2,000 MG in SODIUM CHLORIDE 0.9% INJ 100 ML IV SCH (08:57)
[2017-05-26] MEDS: DOCUSATE SODIUM 50 MG/SENNA 8.6 MG TAB PO SCH ×2 (08:58→21:52)
[2017-05-26] MEDS: THIAMINE HCL 100 MG TAB PO SCH (08:59)
[2017-05-26] MEDS: FOLIC ACID 1 MG TAB PO SCH (08:59)
[2017-05-26] MEDS: SODIUM CHLORIDE 0.9% FLUSH 10 ML FLUSH IV FLUSH SCH (09:00)
[2017-05-26] MEDS: POTASSIUM CHLORIDE 25 MEQ EFFERVESCENT TAB PO SCH ×2 (09:00→21:52)
[2017-05-26] MEDS ORDERED: methylPREDNISolone SOD SUCC 40 MG/1 ML VIAL IV PUSH SCH (09:00)
[2017-05-26] MEDS: GABAPENTIN 300 MG CAP PO SCH ×3 (09:00→18:07)
[2017-05-26] MEDS: TIOTROPIUM BROMIDE 18 MCG INH INH SCH (09:00)
[2017-05-26] MEDS: SODIUM CHLORIDE 0.9% FLUSH 10 ML FLUSH IVF SCH (09:00)
[2017-05-26] MEDS: MULTIVITAMIN TAB PO SCH (09:01)
[2017-05-26] MEDS: RESP: BUDESONIDE 0.5 MG/2 ML NEB NEB SCH ×2 (10:31→20:01)
[2017-05-26] MEDS: RIFAXIMIN 550 MG TAB PO SCH ×2 (10:50→21:52)
--- NOTE | 2017-05-26 11:32 | HHI.PR ---
Subjective Remarks tolerating tf- jevity 65 cc/hr awkae and alert, ff some commands on tracheostomy- 28%, minimal secretions Objective Vitals Vital Signs Date Time Temp Pulse Resp B/P (MAP) Pulse Ox O2 Delivery O2 Flow Rate FiO2 05/26/17 08:00 97.9 112 20 117/73 (88) 94 05/26/17 05:06 98.2 105 20 119/75 (90) 98 05/26/17 05:00 100 Trach Collar 5.00 28 05/26/17 02:17 98.1 80 20 118/75 (89) 100 05/26/17 00:00 111 05/25/17 22:00 113 05/25/17 21:31 100 T-piece 7.00 40 05/25/17 20:00 105 05/25/17 20:00 105 31 121/84 (96) 95 05/25/17 19:00 107 37 128/97 (107) 97 05/25/17 19:00 107 05/25/17 18:00 106 05/25/17 18:00 106 32 87 05/25/17 17:00 105 05/25/17 17:00 105 25 112/81 (91) 92 05/25/17 16:00 97.7 108 25 140/89 (106) 100 05/25/17 16:00 108 05/25/17 15:00 104 05/25/17 15:00 106 26 133/88 (103) 100 05/25/17 14:00 106 05/25/17 14:00 106 29 134/86 (102) 88 05/25/17 13:00 88 05/25/17 13:00 88 25 132/87 (102) 100 05/25/17 12:00 97.7 89 22 130/82 (98) 96 05/25/17 12:00 89 I/O 05/25/17 05/25/17 05/25/17 05/26/17 05/26/17 05/26/17 07:00 15:00 23:00 07:00 15:00 23:00 Intake Total 833 ml 100 ml 728 ml Output Total 800 ml 800 ml 500 ml Balance 33 ml 100 ml -72 ml -500 ml Intake Oral 0 ml IV Total 0 ml 100 ml Tube Feeding 833 ml 608 ml Other 120 ml Output Urine Total 800 ml 800 ml 500 ml # Bowel Movements 0 5 Result Diagram: 05/26/17 0652 05/25/17 0549 Imaging Last Impressions Chest X-Ray 05/24/17599 Signed Impressions: Service Date/Time: May 03:26 - CONCLUSION: 1. Improved pulmonary edema 2. Left lower lobe atelectasis versus pneumonia. There has been no significant change when compared to the prior exam. Fabrizio Odom MD Abdomen X-Ray 05/20/17599 Signed Impressions: Service Date/Time: Saturday, May 20, 2017 03:20 - CONCLUSION: 1. Dilatation of the transverse colon. Significant air filled small bowel is not seen. On the prior exam, the small bowel was prominent. 2. Hazy densities in the abdomen which may suggest ascites. 3. Left lower lobe consolidation or atelectasis. Olu Herrera MD Abdomen/Pelvis CT 05/12/17 0000 Signed Impressions: Service Date/Time: Friday, May 12, 2017 17:56 - CONCLUSION: 1. Left lower lobe collapse and lingular consolidation. Endobronchial soft tissue within the left lower lobe, Mass versus mucus plugging are differential diagnostic considerations. 2. Body wall edema and ascites. 3. Nonobstructing right renal calculus. 4. Colitis with abnormal bowel wall thickening involving the ascending colon, and diffuse small bowel dilatation characteristic of an ileus. Ray Finney MD Chest Ultrasound 05/08/17 Signed Impressions: Service Date/Time: Monday, May 08, 2017 13:01 - CONCLUSION: 1. There is a small left pleural effusion with insufficient volume for thoracentesis at this time. Ronaldo Howell MD Abdomen Fluoroscopy 05/01/17 0000 Signed Impressions: Service Date/Time: Monday, May 01, 2017 13:13 - CONCLUSION: Uncomplicated nasogastric tube placement as above. Zain Kumar MD Lower Extremity Ultrasound 04/28/17 Signed Impressions: Service Date/Time: Friday, April 28, 2017 16:47 - CONCLUSION: Negative exam with no evidence of deep venous thrombosis. Johnathon White MD Chest CT 04/28/17 Signed Impressions: Service Date/Time: Friday, April 28, 2017 11:03 - CONCLUSION: 1. Small bilateral pleural effusions with atelectasis in both lower lobes. There is also a focal area of groundglass opacity in the lingula that is nonspecific but could represent an infectious or inflammatory process. 2. Moderate size hiatal hernia with dilated and fluid-filled esophagus suggesting gastroesophageal reflux. The nasogastric tube distal tip is in the distal esophagus and should ideally be advanced into the stomach. Olu Triana MD Head CT 04/27/17 1017 Signed Impressions: Service Date/Time: Thursday, April 27, 2017 11:00 - CONCLUSION: 1. No acute intracranial abnormality. 2. Complete opacification left maxillary sinus. Keagan Shipman MD Renal Ultrasound 04/27/17 0000 Signed Impressions: Service Date/Time: Thursday, April 27, 2017 23:50 - CONCLUSION: Negative renal sonogram. Rogerio Gunn MD Objective Remarks awke and alert, restless anicteric tracheostomy in place no rales, no rhnchi regular rhythm PEG in place erwin in place extremities no edema- moves all spontaenously Urinary Catheter: Yes Assessment to: Remove Date of Removal: May 26, 2017 Date of Insertion: Apr 28, 2017 Line: Central Venous Catheter Side: Right Location: Femoral A/P Problem List: (1) Acute sinusitis ICD Code: J01.90 - Acute sinusitis, unspecified Status: Acute (2) Hypokalemia ICD Code: E87.6 - Hypokalemia Status: Acute (3) Hypomagnesemia ICD Code: E83.42 - Hypomagnesemia Status: Acute (4) UTI (urinary tract infection) ICD Code: N39.0 - Urinary tract infection, site not specified Status: Acute (5) Chronic alcoholism ICD Code: F10.20 - Alcohol dependence, uncomplicated Status: Acute (6) Dizziness ICD Code: R42 - Dizziness and giddiness Status: Acute (7) Tobacco abuse ICD Code: Z72.0 - Tobacco use (8) Alcohol abuse ICD Code: F10.10 - Alcohol abuse, uncomplicated (9) Sepsis ICD Code: A41.9 - Sepsis, unspecified organism Assessment and Plan 62 years old male Neuro/Psych: Acute encephalopathy likely secondary to EtOH withdrawal/sepsis/hyperammonemia Alcohol dependence CT brain 04/27 revealed left maxillary sinusitis otherwise no acute intra- cranial findings Patient does have a history of EtOH withdrawal seizures. Seizure precautions Thiamine, folate and multivitamin daily Neuro status slowly improving CV: Lactic acidosis- cleared Fluid overload Monitor HR and BP keep MAP>65mmHg Bumex DCd 05/24/17 Resp: Respiratory failure- intubated 04/28, self extubated 05/05 reintubated 05/08. Extubated again on 05/15 and 05/18 with re intubation s/p Perc Trach 05/19/17 COPD exacerbation Ongoing tobaccoism Pulmonology consult for chronic trach management s/p Perc Trach 05/19/17. (Skyla Raines/Ken). Patient wanted full code including tracheostomy and PEG tube placement. Reduce solumedrol to 40 mg qd. inhaled budesonide Albuterol/ipratropium aerosols every 6 hours and albuterol aerosols every 2 hours. PRN s/p Bronch with BAL 05/08: Thick secretions/mucous plug left main stem bronchus suctioned to clear CXR post bronch showed improved aeration left lung. Mucous plugging left lower lobe on CAT scan 05/12. s/p bronchoscopy 05/13 with removal of mucous plug. Nicotine patch 14 mg daily. GI: Hyperammonemia Colonic Ileus, small bowel ileus Hypoalbuminemia- mild protein calorie malnutrition Hepatic steatosis Ileus improving clinically and on KUB, tube feeds restarted by GI. Having bowel movements PEG 05/22, tolerating tube feeds s/p decompressive colonoscopy 05/06: Stool throughout the colon, Decompression colon tube was placed s/p EGD 04/30: Esophagitis, gastritis, food impaction in distal esophagus removed. Pantoprazole for GI prophylaxis. Docusate sodium/senna 1 tablet twice a day for bowel regimen. Continue Reglan Imaging studies: CT abdomen/pelvis 05/12 revealed thickening ascending colon/small bowel dilatation/ileus. KUB 05/20 interval improvement in ileus KUB 05/18: Worsening ileus KUB 05/14 Improving bowel distention KUB 05/09: Mild improvements in bowel gas pattern. KUB 05/07: Decreased colonic distention KUB abdomen 05/04 showed severe ileus, cecum dilated to 10 cm 05/05 CT abdomen/pelvis: Gaseous distention of the right and transverse colon with abrupt change in luminal dimension at the splenic flexure. Rectal tube in place and cannot differentiate between a focal obstruction/ stricture versus decompression from the rectal tube. : Right kidney nonobstructing stone 3 mm Renal ultrasound revealed no hydronephrosis Monitor renal function, I/O's, electrolytes replacement per protocol. Bumex DCd DC erwin today- trial voiding- 05/26 Endo: Hypokalemia hypomagnesemia Sliding-scale insulin to maintain euglycemia with Accu-Cheks every 6 hours with low regimen with Novolin R Electrolyte Replacement per protocol Heme: Leukocytosis Macrocytic anemia Patient was transfused 2 pack platelets and 2 PRBC 04/28. Follow CBC daily. Monitor trends. ID: Possible C. difficile colitis Aspiration pneumonia, E Coli in sputum Per infectious disease on ceftriaxone and metronidazole. Linezolid DCd 05/16/17 s/p Zosyn 04/27- onitor for signs of infections ( Fever, WBC) Afebrile, Follow up on BAL results 05/09 and 05/13- NGTD. Sputum E Coli-S to cefepime Blood cultures 2 -04/27 -no growth to date Urine culture - 04/27 -50 - 100,000 mixed gram-positive Sputum 04/28- normal resp andrea Urine pneumococcal and Legionella antigens negative MSK: PT/OTevaluate and treat. Up to chair Access -RIJ CVL placed 05/12-DCd Prophylaxis - GI - pantoprazole - DVT - SCD/ Heparin SQ , Lauren Wilkerson MD May 26, 2017 11:32
--- NOTE | 2017-05-26 13:51 | MB ---
cc: [facility] DATE OF CONSULTATION: 05/26/2017 REASON FOR CONSULTATION: Mr. Webb is a 61-year-old white male who presented on 04/28 with hepatic encephalopathy history of alcohol abuse, tobacco abuse and sepsis syndrome, hypotension. He has had a complicated hospital course with respiratory failure eventually after a several reintubations and consultation with the family he had a tracheostomy placed and he is now been transferred to the floor I am asked to see him for further pulmonary management. At the time of this interview he is awake and alert but seems somewhat confused. Tracheostomy in place, clean and dry. The patient is not complaining of shortness of breath and apparently has had no significant secretions per the nursing notes. Information is taken from the chart as is difficult communicating with the patient at the present time with the tracheostomy. Looking back at his original history and physical on 04/27. PAST MEDICAL HISTORY: Past history is noted for chronic obstructive pulmonary disease, alcohol withdraw seizures and a previous tonsillectomy. ALLERGIES STEROIDS, ALLERGY REACTION UNKNOWN. MEDICATIONS: The medications reviewed in the EMR and he is on aerosol therapy q.6 h and methylprednisolone. Tiotropium inhalation which should be discontinued. PHYSICAL EXAMINATION: VITAL SIGNS: Physical exam 98 degrees, pulse is 80, respirations 18, sat 98% on 28% trache collar. HEAD, EYES, EARS, NOSE, AND THROAT: Sclerae anicteric. Trache looks clean occluding the trache he does breathe around it comfortably it is a size 8. CHEST: The chest is actually clear. No significant congestion. No rhonchi or wheezes. No peripheral edema or cyanosis. Chest x-ray on 05/24, minimal edema a little atelectasis behind the heart on the left. LABORATORY DATA White count 17,012 and a sputum culture 1080 coli, infectious disease has been following him and monitoring antibiotics. No recent arterial blood gases off the ventilator. DISCUSSION Mr. Webb presented a month ago with alcohol related issues septicemia, respiratory failure, underlying COPD and a stormy course and the intensive care unit but is stable on the floor now with a tracheostomy that is been in since 05/19. We will monitor him over the next day or two, down size trache if he remains stable and decannulated when he is handling his own secretions and having no obvious respiratory difficulties. We will continue his aerosol therapy, taper down his steroid and discontinue the Tiotropium. R. MD JORGITO Daniel/michaela /12:56 PM /1:42 PM
[2017-05-26] MEDS: MELATONIN 5 MG TAB PO SCH (21:52)
[2017-05-27] VITALS (20 sets, daily range): BP systolic 66–124; BP diastolic 46–81; PULSE 68–110; RESP 16–25; TEMP 97.1–100; O2SAT 94–100
[2017-05-27] MEDS: RESP: ALBUTEROL 2.5 MG/IPRATROPIUM 0.5 MG NEB (SCH) NEB ×4 (04:28→19:54)
[2017-05-27] MEDS: BUDESONIDE-FORMOTEROL 160/4.5 MCG INHALER INH SCH ×3 (06:00→21:13)
[2017-05-27] MEDS: ERYTHROMYCIN ETHYLSUCCINATE 200 MG/5 ML SUSP 100 ML BOTTLE PO SCH ×3 (06:00→21:23)
[2017-05-27] MEDS: ARTIFICIAL TEARS OPTH SOLN 15 ML BTL EACH EYE SCH ×3 (06:00→21:23)
[2017-05-27] MEDS: metroNIDAZOLE 500 MG TAB PO SCH ×3 (06:10→21:23)
[2017-05-27] MEDS: METOCLOPRAMIDE HCL 10 MG/2 ML VIAL IV PUSH SCH ×3 (06:10→21:23)
[2017-05-27] MEDS: RESP: BUDESONIDE 0.5 MG/2 ML NEB NEB SCH ×2 (07:41→19:54)
[2017-05-27] MEDS: CHLORHEXIDINE 0.12% (ORAL KIT) 15 ML CUP MT SCH ×3 (08:00→21:10)
--- NOTE | 2017-05-27 08:33 | HHI.PR ---
Subjective Remarks Srini called Staff was attemtping to suction him and unable to -suction- blockage in the trac and tubiong was being changed - and RT was unable to put a new one cook seafood at bedside- unable to to replace at bedside we will transfer to C and attempt to put one in at ICU setting in anticipation of further problem like bleeding or may require intubation and WILL consult wax engraver Objective Vitals Vital Signs Date Time Temp Pulse Resp B/P (MAP) Pulse Ox O2 Delivery O2 Flow Rate FiO2 05/27/17 07:48 97 Trach Collar 28 05/27/17 04:00 99.7 110 20 122/78 (93) 94 05/27/17 00:00 99.2 110 20 120/80 (93) 96 05/26/17 20:01 94 Trach Collar 5.00 28 05/26/17 20:00 98.5 105 20 129/83 (98) 05/26/17 16:00 98.6 113 20 117/73 (88) 100 05/26/17 12:00 99.3 116 20 118/67 (84) 95 05/26/17 10:50 98 Trach Collar 28 I/O 05/26/17 05/26/17 05/26/17 05/27/17 05/27/17 05/27/17 07:00 15:00 23:00 07:00 15:00 23:00 Output Total 500 ml 400 ml 375 ml Balance -500 ml -400 ml -375 ml Output Urine Total 500 ml 400 ml 375 ml # Bowel Movements 1 Result Diagram: 05/26/17 0652 05/25/17 0549 Imaging Last Impressions Chest X-Ray 05/24/17 06 Signed Impressions: Service Date/Time: May 03:26 - CONCLUSION: 1. Improved pulmonary edema 2. Left lower lobe atelectasis versus pneumonia. There has been no significant change when compared to the prior exam. Fabrizio Odom MD Abdomen X-Ray 05/20/17 06 Signed Impressions: Service Date/Time: Saturday, May 20, 2017 03:20 - CONCLUSION: 1. Dilatation of the transverse colon. Significant air filled small bowel is not seen. On the prior exam, the small bowel was prominent. 2. Hazy densities in the abdomen which may suggest ascites. 3. Left lower lobe consolidation or atelectasis. Olu Herrera MD Abdomen/Pelvis CT 05/12/17 0000 Signed Impressions: Service Date/Time: Friday, May 12, 2017 17:56 - CONCLUSION: 1. Left lower lobe collapse and lingular consolidation. Endobronchial soft tissue within the left lower lobe, Mass versus mucus plugging are differential diagnostic considerations. 2. Body wall edema and ascites. 3. Nonobstructing right renal calculus. 4. Colitis with abnormal bowel wall thickening involving the ascending colon, and diffuse small bowel dilatation characteristic of an ileus. Ray Finney MD Chest Ultrasound 05/08/17 0000 Signed Impressions: Service Date/Time: Monday, May 08, 2017 13:01 - CONCLUSION: 1. There is a small left pleural effusion with insufficient volume for thoracentesis at this time. Ronaldo Howell MD Abdomen Fluoroscopy 05/01/17 0000 Signed Impressions: Service Date/Time: Monday, May 01, 2017 13:13 - CONCLUSION: Uncomplicated nasogastric tube placement as above. Zain Kumar MD Lower Extremity Ultrasound 04/28/17 0000 Signed Impressions: Service Date/Time: Friday, April 28, 2017 16:47 - CONCLUSION: Negative exam with no evidence of deep venous thrombosis. Johnathno White MD Chest CT 04/28/17 0000 Signed Impressions: Service Date/Time: Friday, April 28, 2017 11:03 - CONCLUSION: 1. Small bilateral pleural effusions with atelectasis in both lower lobes. There is also a focal area of groundglass opacity in the lingula that is nonspecific but could represent an infectious or inflammatory process. 2. Moderate size hiatal hernia with dilated and fluid-filled esophagus suggesting gastroesophageal reflux. The nasogastric tube distal tip is in the distal esophagus and should ideally be advanced into the stomach. Olu Triana MD Head CT 04/27/17 1017 Signed Impressions: Service Date/Time: Thursday, April 27, 2017 11:00 - CONCLUSION: 1. No acute intracranial abnormality. 2. Complete opacification left maxillary sinus. Keagan Shipman MD Renal Ultrasound 04/27/17 0000 Signed Impressions: Service Date/Time: Thursday, April 27, 2017 23:50 - CONCLUSION: Negative renal sonogram. Rogerio Gunn MD Objective Remarks awke and alert, restless anicteric tracheostomy in place no rales, no rhnchi regular rhythm PEG in place erwin in place extremities no edema- moves all spontaenously Date of Removal: May 26, 2017 Date of Insertion: Apr 28, 2017 Line: Central Venous Catheter Side: Right Location: Femoral A/P Problem List: (1) Acute sinusitis ICD Code: J01.90 - Acute sinusitis, unspecified Status: Acute (2) Hypokalemia ICD Code: E87.6 - Hypokalemia Status: Acute (3) Hypomagnesemia ICD Code: E83.42 - Hypomagnesemia Status: Acute (4) UTI (urinary tract infection) ICD Code: N39.0 - Urinary tract infection, site not specified Status: Acute (5) Chronic alcoholism ICD Code: F10.20 - Alcohol dependence, uncomplicated Status: Acute (6) Dizziness ICD Code: R42 - Dizziness and giddiness Status: Acute (7) Tobacco abuse ICD Code: Z72.0 - Tobacco use (8) Alcohol abuse ICD Code: F10.10 - Alcohol abuse, uncomplicated (9) Sepsis ICD Code: A41.9 - Sepsis, unspecified organism Assessment and Plan 62 years old male Acute Airway Obstruction - TRacheostomy Clogged 05/27 attempt to replace tracheosotmy at bedside failed will transfer to C for close monitoring and attempt to change it there in anticipation of complications like bleeding/desaturation may need intubation if unable to will consult wax engraver and transfer to IMC- HOld tube feedings. NPO Acute encephalopathy likely secondary to EtOH withdrawal/sepsis/hyperammonemia Alcohol dependence CT brain 04/27 revealed left maxillary sinusitis otherwise no acute intra- cranial findings Patient does have a history of EtOH withdrawal seizures. Seizure precautions Thiamine, folate and multivitamin daily Neuro status slowly improving CV: Lactic acidosis- cleared Fluid overload Monitor HR and BP keep MAP>65mmHg Bumex DCd 05/24/17 Resp: Respiratory failure- intubated 04/28, self extubated 05/05 reintubated 05/08. Extubated again on 05/15 and 05/18 with re intubation s/p Perc Trach 05/19/17 COPD exacerbation Ongoing tobaccoism Pulmonology consult for chronic trach management s/p Perc Trach 05/19/17. (Skyla Raines/Ken). Patient wanted full code including tracheostomy and PEG tube placement. Reduce solumedrol to 40 mg qd. inhaled budesonide Albuterol/ipratropium aerosols every 6 hours and albuterol aerosols every 2 hours. PRN s/p Bronch with BAL 05/08: Thick secretions/mucous plug left main stem bronchus suctioned to clear CXR post bronch showed improved aeration left lung. Mucous plugging left lower lobe on CAT scan 05/12. s/p bronchoscopy 05/13 with removal of mucous plug. Nicotine patch 14 mg daily. GI: Hyperammonemia Colonic Ileus, small bowel ileus Hypoalbuminemia- mild protein calorie malnutrition Hepatic steatosis Ileus improving clinically and on KUB, tube feeds restarted by GI. Having bowel movements PEG 05/22, tolerating tube feeds s/p decompressive colonoscopy 05/06: Stool throughout the colon, Decompression colon tube was placed s/p EGD 04/30: Esophagitis, gastritis, food impaction in distal esophagus removed. Pantoprazole for GI prophylaxis. Docusate sodium/senna 1 tablet twice a day for bowel regimen. Continue Reglan Imaging studies: CT abdomen/pelvis 05/12 revealed thickening ascending colon/small bowel dilatation/ileus. KUB /15 interval improvement in ileus KUB /13: Worsening ileus KUB 05/14 Improving bowel distention KUB /: Mild improvements in bowel gas pattern. KUB 10/: Decreased colonic distention KUB abdomen 05/04 showed severe ileus, cecum dilated to 10 cm 05/05 CT abdomen/pelvis: Gaseous distention of the right and transverse colon with abrupt change in luminal dimension at the splenic flexure. Rectal tube in place and cannot differentiate between a focal obstruction/ stricture versus decompression from the rectal tube. : Right kidney nonobstructing stone 3 mm Renal ultrasound revealed no hydronephrosis Monitor renal function, I/O's, electrolytes replacement per protocol. Bumex DCd DC erwin today- trial voiding- 05/26 Endo: Hypokalemia hypomagnesemia Sliding-scale insulin to maintain euglycemia with Accu-Cheks every 6 hours with low regimen with Novolin R Electrolyte Replacement per protocol Heme: Leukocytosis Macrocytic anemia Patient was transfused 2 pack platelets and 2 PRBC 04/28. Follow CBC daily. Monitor trends. ID: Possible C. difficile colitis Aspiration pneumonia, E Coli in sputum Per infectious disease on ceftriaxone and metronidazole. Linezolid DCd 05/16/17 s/p Zosyn 04/27- onitor for signs of infections ( Fever, WBC) Afebrile, Follow up on BAL results 05/09 and 05/13- NGTD. Sputum E Coli-S to cefepime Blood cultures 2 -04/27 -no growth to date Urine culture - 04/27 -50 - 100,000 mixed gram-positive Sputum 04/28- normal resp andrea Urine pneumococcal and Legionella antigens negative MSK: PT/OTevaluate and treat. Up to chair Access -RIJ CVL placed 05/12-DCd Prophylaxis - GI - pantoprazole - DVT - SCD/ Heparin SQ , Lauren Wilkerson MD May 27, 2017 08:33
[2017-05-27] MEDS: REMOVE OLD PATCH T-DERMAL SCH (09:00)
[2017-05-27] MEDS ORDERED: MIDAZOLAM HCL 5 MG/ML VIAL (1 ML) IV ONE (09:00)
[2017-05-27] MEDS ORDERED: SODIUM CHLOR 0.9% 1000 ML INJ 1,000 ML IV ONE (09:00)
[2017-05-27] MEDS: LACTULOSE SYRUP 20 GM/30 ML CUP PO SCH ×2 (09:00→21:00)
[2017-05-27] MEDS: FOLIC ACID 1 MG TAB PO SCH (09:00)
[2017-05-27] MEDS: GABAPENTIN 300 MG CAP PO SCH ×3 (09:00→17:29)
[2017-05-27] MEDS ORDERED: methylPREDNISolone SOD SUCC 40 MG/1 ML VIAL IV PUSH SCH (09:00)
[2017-05-27] MEDS: MULTIVITAMIN TAB PO SCH (09:00)
[2017-05-27] MEDS: POTASSIUM CHLORIDE 25 MEQ EFFERVESCENT TAB PO SCH ×2 (09:00→21:11)
[2017-05-27] MEDS: DOCUSATE SODIUM 50 MG/SENNA 8.6 MG TAB PO SCH ×2 (09:00→21:00)
[2017-05-27] MEDS: RIFAXIMIN 550 MG TAB PO SCH ×2 (09:00→21:11)
[2017-05-27] MEDS: THIAMINE HCL 100 MG TAB PO SCH (09:00)
[2017-05-27 09:03] LABS: BLOOD GAS BASE EXCESS 2.3 mmol/L (-2-2); BLOOD GAS CARBOXYHEMOGLOBIN 2.2 % (0-4); BLOOD GAS HCO3 25 mmol/L (22-26); BLOOD GAS METHEMOGLOBIN 0.9 % (0-2); BLOOD GAS O2 HGB SATURATION 97 % (90-100); BLOOD GAS OXYGEN CONTENT 11.4 Vol % (12.0-20.0); BLOOD GAS PCO2 32 mmHg (38-42); BLOOD GAS PO2 315 mmHg (61-120); BLOOD GAS TOTAL HGB 7.8 G/DL (12.0-16.0); TEMP CORR TO 98.6
[2017-05-27 09:04] LABS: CRITICAL VALUE YES; DRAW SITE L FEM; NUMBER OF ARTERIAL PUNCTURES 1; OXYGEN DEVICE VENTILATOR; STAT YES
--- NOTE | 2017-05-27 09:16 | HHI.CCPN ---
Subjective Remarks/Hospital Course 61yM with h/o prior hepatic encephalopathy, etoh abuse, tobacco abuse, now admitted with weakness, fever, chills, worsening hypotension. called by hospitalist service overnight for clinical decline despite ivf resuscitation. Patient does complain of flank pain, but denies chest pain, abdominal pain. u/a +. started earlier on vanc/zosyn. has not voided. becoming worseningly agitated. unable to provide any additional information due to altered mental status. 04/28: Chart reviewed. Patient still quite agitated stating "I have to pee" patient has a Young catheter. Complaining of flank pain. Noted renal ultrasound negative. Currently on norepinephrine at 12 mg per minute. 04/29: Resting in bed in no acute distress. Currently on norepinephrine at 7 per minute for vasopressor support. Transfuse 2 units PRBC and 2 pack platelets overnight. Dilutional. Absolutely no signs of active bleeding. 04/30 Patient is sedated with Fentanyl and intubated. On Levophed 5 mics. Afebrile. For EGD today. 05/01 No events overnight. Sedated and intubated. On Levophed 4 mics. s/p EGD yesterday with shoed esophagitis, gastritis, food impaction in distal esophagus removed. 05/02: Afebrile. Off all vasopressors. NG tube advanced by IR yesterday. Feeding to be initiated today. Currently on fentanyl drip 05/03: Remains intubated sedated and not following commands remains on fentanyl infusion. Attempt CPAP trial if patient wakeful enough. Urine output minimal only 300 mL in 24 hours. Will give albumin and Bumex 05/04 Patient is sedated with Fentanyl and intubated. Afebrile. 05/05 Patient was self extubated last night. For possible decompressive colonoscopy today. Afebrile. 05/06 Patient is on 3L oxygen for decompressive colonoscopy today. On Precedex drip for agitation. CT abdomen/pelvis last night showed development of gaseous distention of the right and transverse colon with abrupt change in luminal dimension at the splenic flexure. There is a rectal tube in place and cannot differentiate between a focal obstruction/stricture versus decompression from the rectal tube. 05/07 Patient s/p decompressive colonoscopy last night KUB this morning showed decreased colonic distention. On 4L oxygen. 05/08 Patient was unresponsive on BIPAP this morning and was in resp distress he was subsequently intubated and placed on mechanical ventilation. CXR post intubation showed complete opacification of left hemithorax likely 2nd mucous plug 05/09 Patient is sedated with Fentanyl and intubated. Afebrile. 05/10 Patient remains sedated and intubated. Afebrile. Tolerating tube feeds 05/11: Tolerated PSV trials 3 hours today. Not tolerating tube feeding currently. KUB pending. Positive BM. Decreased urine output noted. 05/12: Lasted 1 hour on PSV trials today. Currently vomiting will be decompressed from above and below per GI today. Afebrile. Central line placed due to persistent hypotension 05/13: Permission from mother for bronchoscopy today for diagnosis left lower lobe on CAT scan of min/pelvis yesterday. Sample sent. Currently on linezolid , cefepime and Flagyl per infectious disease. 05/14: Patient remains intubated sedated, on sedation hold do not follow commands , but moving extremities. Initially intubated 04/28, self extubated 05/05, Re intubated for mucus plugging, AMS on 05/07 night. Combined vent day , mental status will not permit extubation. Copious yellow ETT secretions. 05/15: Gets agitated on CPAP. But intermittently follows commands. Good oxygen saturation. Chest x-ray shows improved aeration. Moderate secretions from ET tube but good cough. Will proceed with extubation. Remains full code 05/16: Patient was extubated yesterday but failed in about 1 hour due to stridor and tachypnea. Today off sedation mentation seems to be improved, tolerates CPAP with high settings but has bilateral crackles and coarse rhonchi. Family (son and daughter) starting in from [place]. Will be here tomorrow 05/17/17 and request the patient to be left intubated until they get here 05/17: Patient is more awake alert and appropriate in communicating even though on low-dose propofol and intubated. Waiting for family to arrive from [place] tonight. Possible weaning to extubation tomorrow 05/18: Awake alert following command on vent. Palliative care is meeting with family today. Once decision re: goals of care are made, most likely proceed with extubation 05/19: Patient was extubated yesterday and there myself under palliative care nurse practitioner Adalgisa Ellington had a detailed discussion with the patient. After talking to the family patient decided he wants to be full code and wants a tracheostomy and PEG tube done since this is his fourth reintubation. Currently intubated sedated tracheostomy today 05/20: Status post tracheostomy yesterday 05/19/17. Based on CPAP tolerating well now. We'll attempt T piece today. Discontinue Versed use propofol as needed. Labs pending 05/21: Remains intubated sedated. Tolerated CPAP 3 hours yesterday. Remains significantly fluid positive at least 2 KG since admission. Significant anasarca. Start on Bumex infusion. Chest x-ray shows fluid overload/pulmonary edema 05/22: Excellent diuresis with Bumex gtt. 6.8L in 24 hours and wt down by 5 kg, still kg up from admission weight. Tolerating TP. Possible PEG today 05/23: Currently patient is on TPs tolerating well. Attempts to talk. Up to stretcher chair today. Urine output more than 10 L on Bumex drip. Change to scheduled Bumex and one dose of Diamox 05/24: Tolerated TP all day, CPAP at night. >5L UO in 24 hours. We'll stop scheduled Bumex now, weight is down to admission weight. Use Bumex as needed 05/25: Patient able to talk with [place] valve. BUN/cr stable. WBC starting to trend down, Solu-Medrol reduced. CCM RECONSULT NOTE: Emergency re consult for trach malfunction, with hypoxia. According to the RT report, patient was hypoxic on the floor and trach was obstructed and partially dislodged. Respiratory therapist removed the inner cannula which was obstructed and tried to place a new inner cannula but the syed on trach was broke. So respiratory therapist removed the existing perc trach and placed a new cuffed fenestrated trach (only one available on floor at that time). Passage was difficult and he was not able to pass a suction catheter and a Halicat was called and patient was emergently moved to [facility], Dr. Montes accompanied the patient. When patient was breathing spontaneously he had bilateral air entry, I called for emergent bronchoscopy. Patient had severe respiratory distress and mechanical ventilation was attempted. We could not get sufficient volume and, patient started developing significant subcutaneous emphysema involving the neck indicating new tracheostomy false passage. I disconnected the patient performed a emergency orotracheal intubation, once the tube placement was confirmed Dr. Montes pulled out the existing fenestrated tracheostomy. ET tube was further advanced and again confirmed with end-tidal CO2 monitor. Suction catheter now was easily passed and copious amounts of secretions were suctioned out. I will perform a bronchoscopy to confirm placement Objective Vital Signs Date Time Temp Pulse Resp B/P (MAP) Pulse Ox O2 Delivery O2 Flow Rate FiO2 05/27/17 07:48 97 Trach Collar 28 05/27/17 04:00 99.7 110 20 122/78 (93) 05/26/17 20:01 5.00 Intake and Output 05/27/17 05/27/17 05/28/17 08:00 16:00 00:00 Output Total 375 ml Balance -375 ml Result Diagram: 05/26/17 0652 05/25/17 0549 Other Results Laboratory Tests Test 05/27/17 09:00 Blood Gas Puncture Site L FEM Blood Gas Patient Temperature 98.6 Blood Gas HCO3 25 mmol/L (22-26) Blood Gas Base Excess 2.3 mmol/L (-2-2) Blood Gas Oxygen Saturation 97 % (90-100) Arterial Blood pH 7.51 (7.380-7.420) Arterial Blood Partial Pressure CO2 32 mmHg (38-42) Arterial Blood Partial Pressure O2 315 mmHg (61-120) Arterial Blood Oxygen Content 11.4 Vol % (12.0-20.0) Arterial Blood Carboxyhemoglobin 2.2 % (0-4) Arterial Blood Methemoglobin 0.9 % (0-2) Blood Gas Hemoglobin 7.8 G/DL (12.0-16.0) Oxygen Delivery Device VENTILATOR Blood Gas Ventilator Setting SEE COMMENT Imaging Last Impressions Chest X-Ray 05/13/17 0000 Signed Impressions: Service Date/Time: Saturday, May 13, 2017 13:22 - CONCLUSION: Stable chest appearance. Nasogastric tube in the distal esophagus Olu Rodriguez MD Abdomen/Pelvis CT 05/12/17 0000 Signed Impressions: Service Date/Time: Friday, May 12, 2017 17:56 - CONCLUSION: 1. Left lower lobe collapse and lingular consolidation. Endobronchial soft tissue within the left lower lobe, Mass versus mucus plugging are differential diagnostic considerations. 2. Body wall edema and ascites. 3. Nonobstructing right renal calculus. 4. Colitis with abnormal bowel wall thickening involving the ascending colon, and diffuse small bowel dilatation characteristic of an ileus. Ray Finney MD Abdomen X-Ray 05/12/17 0000 Signed Impressions: Service Date/Time: Friday, May 12, 2017 06:36 - CONCLUSION: 1. Reinsertion of the rectal tube which is coiled within the rectal vault. It may be kinked and not draining well. 2. Persistent gaseous distention of the colon although a slight decrease in the volume of gas. 3. New mildly dilated gas-filled loops of small bowel. Rogerio Harris Jr., MD Chest Ultrasound 05/08/17 0000 Signed Impressions: Service Date/Time: Monday, May 08, 2017 13:01 - CONCLUSION: 1. There is a small left pleural effusion with insufficient volume for thoracentesis at this time. Ronaldo Howell MD Abdomen Fluoroscopy 05/01/17 0000 Signed Impressions: Service Date/Time: Monday, May 01, 2017 13:13 - CONCLUSION: Uncomplicated nasogastric tube placement as above. Zain Kumar MD Lower Extremity Ultrasound 04/28/17 0000 Signed Impressions: Service Date/Time: Friday, April 28, 2017 16:47 - CONCLUSION: Negative exam with no evidence of deep venous thrombosis. Johnathon White MD Chest CT 04/28/17 0000 Signed Impressions: Service Date/Time: Friday, April 28, 2017 11:03 - CONCLUSION: 1. Small bilateral pleural effusions with atelectasis in both lower lobes. There is also a focal area of groundglass opacity in the lingula that is nonspecific but could represent an infectious or inflammatory process. 2. Moderate size hiatal hernia with dilated and fluid-filled esophagus suggesting gastroesophageal reflux. The nasogastric tube distal tip is in the distal esophagus and should ideally be advanced into the stomach. Olu Triana MD Head CT 04/27/17 1017 Signed Impressions: Service Date/Time: Thursday, April 27, 2017 11:00 - CONCLUSION: 1. No acute intracranial abnormality. 2. Complete opacification left maxillary sinus. Keagan Shipman MD Renal Ultrasound 04/27/17 0000 Signed Impressions: Service Date/Time: Thursday, April 27, 2017 23:50 - CONCLUSION: Negative renal sonogram. Rogerio Gunn MD Objective Remarks GENERAL: 61 year old male tolerating in respiratory distress, significant increasing subcutaneous emphysema of neck SKIN: Warm and dry. Skin wrinkled HEAD: Normocephalic. EYES: No scleral icterus. ENT: Oral cavity is dry NECK: New fenestrated trach in place, significant subcutaneous emphysema. Unable to pass suction catheter CARDIOVASCULAR: Tachycardic. S1, S2 no S4 without murmur RESPIRATORY: Breath sounds diminished bilaterally. Significant accessory muscle use. GASTROINTESTINAL: No guarding. No rigidity. MSK: Skin appears dry and wrinkled NEURO: Patient is lethargic but opens eyes appears to be in severe distress, moving all extremities Date of Removal: May 26, 2017 Date of Insertion: Apr 28, 2017 Line: Central Venous Catheter Side: Right Location: Femoral A/P Assessment and Plan Neuro/Psych: Acute encephalopathy Alcohol dependence Postintubation placed on propofol infusion CT brain 04/27 revealed left maxillary sinusitis otherwise no acute intra- cranial findings Patient does have a history of EtOH withdrawal seizures. Seizure precautions. Thiamine, folate and multivitamin daily CV: Hypotension Monitor HR and BP keep MAP>65mmHg Bumex DCd 05/24/17 Resp: Attempted trach exchange by RT with false passage Pneumothorax pneumomediastinum and subcutaneous emphysema secondary to above Acute hypoxemic respiratory failure s/p Perc Trach 05/19/17, for recommend respiratory failure COPD exacerbation Ongoing tobaccoism Clinical exam and rapidly enlarging subcutaneous emphysema of the neck, inability to pass suction catheter confirms new tracheostomy false passage Orotracheally intubated and tracheostomy removed, site packed. Please don't [facility] Plan for percutaneous tracheostomy tomorrow 05/28/17 s/p Perc Trach 05/19/17. (Skyla Raines/Ken). Patient wanted full code including tracheostomy and PEG tube placement. Continue solumedrol to 40 mg qd. inhaled budesonide. Albuterol/ipratropium aerosols every 6 hours and albuterol aerosols every 2 hours. PRN s/p bronchoscopy 05/27/17-ET tube placement confirmed. Moderate secretions removed from right lower and left lower lobe GI: Hyperammonemia Colonic Ileus, small bowel ileus Hypoalbuminemia- mild protein calorie malnutrition Hepatic steatosis Keep NPO Previously Ileus improving clinically and on KUB, tube feeds restarted by GI. Having bowel movements PEG 05/22, tolerating tube feeds s/p decompressive colonoscopy 05/06: Stool throughout the colon, Decompression colon tube was placed s/p EGD 04/30: Esophagitis, gastritis, food impaction in distal esophagus removed. Pantoprazole for GI prophylaxis. Docusate sodium/senna 1 tablet twice a day for bowel regimen. Continue Reglan : Right kidney nonobstructing stone 3 mm Monitor renal function, I/O's, electrolytes replacement per protocol. Bumex DCd Endo: Hypokalemia hypomagnesemia Sliding-scale insulin to maintain euglycemia with Accu-Cheks every 6 hours with low regimen with Novolin R Electrolyte Replacement per protocol Heme: Leukocytosis Macrocytic anemia Patient was transfused 2 pack platelets and 2 PRBC 04/28. Follow CBC daily. Monitor trends. ID: Possible C. difficile colitis Aspiration pneumonia, E Coli in sputum Per infectious disease on ceftriaxone and metronidazole. Linezolid DCd 05/16/17 s/p Zosyn 04/27- onitor for signs of infections ( Fever, WBC) Afebrile, Follow up on BAL results 05/09 and 05/13- NGTD. Sputum E Coli-S to cefepime Blood cultures 2 -04/27 -no growth to date Urine culture - 04/27 -50 - 100,000 mixed gram-positive Sputum 04/28- normal resp andrea Urine pneumococcal and Legionella antigens negative MSK: PT/OTevaluate and treat, when more stable Access -Use PIV Prophylaxis - GI - pantoprazole - DVT - SCD/ Heparin SQ-Hold to complete procedures CCT 62 MIN excluding procedures Esteban Raines MD May 27, 2017 09:16
[2017-05-27] MEDS ORDERED: MIDAZOLAM HCL 5 MG/ML VIAL (1 ML) ONE (09:32)
--- NOTE | 2017-05-27 09:54 | RADRPT ---
EXAM DATE/TIME: 05/27/2017 09:08 [facility] COMPARISON: CHEST SINGLE AP, May 24, 2017, 3:26. INDICATIONS : Post intubation. MEDICAL HISTORY : Chronic obstructive pulmonary disease. Seizures. SURGICAL HISTORY : Tracheostomy. ENCOUNTER: Initial ACUITY: 1 day PAIN SCORE: Non-responsive. LOCATION: Bilateral chest FINDINGS: There is a pneumothorax seen on the right. This measures up to 2.3 cm in thickness. The patient is ro tated towards the left. Some degree of shift of the mediastinal structures may be present. ET tube ti p is at the hoda directed towards the right mainstem bronchus. There has been development of subcut aneous emphysema in the neck. There is increased density at the left base likely related to atelectas is. CONCLUSION: 1. New pneumothorax with possible shift of the mediastinal structures. The patient is rotated which m akes evaluation of the possible shift difficult. 2. ET tube in directed into the right mainstem bronchus. 3. Subcutaneous emphysema in the neck. This information was relayed to Dr. Raines by telephone at 9:51 AM. Olu Herrera MD on May 27, 2017 at 9:44 Board Certified Radiologist. This report was verified electronically.
--- NOTE | 2017-05-27 10:39 | PD.PROCEDR ---
Procedure Note Procedure PROCEDURE: Orotracheal intubation INDICATION: Acute respiratory failure, tachypnea, tracheostomy forced passage DETAILS OF PROCEDURE The patient was placed in optimal position and preoxygenated with 100% FiO2. The patient was administered 10 mg Versed IV, and 50 milligrams rocuronium IV. With Mac blade and obtained a grade 1 view of the airway. On single attempt a size 8.0 cuffed endotracheal tube was passed through the vocal cords. Correct tube location was confirmed with end tidal CO2 detector and by auscultating over bilateral lung escalante. The endotracheal tube was secured with adhesive tape at a depth of 24 cm at the lips. The patient was connected to the ventilator. The patient tolerated the procedure well without any apparent complications. Oxygen saturations were maintained greater than 95% all times. STAT chest x-ray pending at this time. Existing Trach pulled out after confirming ETT placement Esteban Raines MD May 27, 2017 10:39
--- NOTE | 2017-05-27 10:57 | RADRPT ---
EXAM DATE/TIME: 05/27/2017 10:24 [facility] COMPARISON: CHEST SINGLE AP, May 27, 2017, 9:08. INDICATIONS : Post bronchoscopy. MEDICAL HISTORY : Chronic obstructive pulmonary disease. Seizures. SURGICAL HISTORY : None. ENCOUNTER: Initial ACUITY: 1 day PAIN SCORE: Non-responsive. LOCATION: Bilateral chest FINDINGS: ET tube has been repositioned and is now 4 cm above the hoda in good position. There continues to B E a right pneumothorax measuring up to 2.3 cm over the upper right lung. There appears to be some jordan ft of the heart and mediastinal structures towards the left although the patient is rotated towards t he left. There continues to be increased density at the left base. Subcutaneous emphysema is seen in the neck. CONCLUSION: 1. ET tube in good position. 2. Persistent mild to moderate right pneumothorax with possible shift of the heart and mediastinal st ructures. Oul Herrera MD on May 27, 2017 at 10:54 Board Certified Radiologist. This report was verified electronically.
--- NOTE | 2017-05-27 11:03 | PD.PROCEDR ---
Procedure Note Procedure Therapeutic and diagnostic bronchoscopy Description of procedure: On mechanical ventilation, 100 % FiO2, Versed 5 mg IV. Fentanyl 100 mcg IV, 50 mg IV Rocuronium. The scope was passed through the elbow side-port of the vent circuit. ETT tube confirmed to be in trachea above hoda, by limited exam I did not visualize injury to the lower trachea. Moderate amount of thick yellow secretions suctioned out from right lower lobe and left lower lobe BAL performed and specimen collected. The tracheobronchial tree showed no inflammation and anatomical branching was normal. Esteban Raines MD May 27, 2017 11:03
[2017-05-27] MEDS: cefTRIAXone INJ 2,000 MG in SODIUM CHLORIDE 0.9% INJ 100 ML IV SCH (11:14)
[2017-05-27] MEDS: PROPOFOL 1000 MG/100 ML INJ 100 ML IV PRN ×3 (11:18→21:10)
[2017-05-27] MEDS ORDERED: NOREPINEPHRINE 4 MG/D5W 250 ML IV PRN (11:30)
[2017-05-27] MEDS ORDERED: ROCURONIUM INJ 50 MG/5 ML VIAL IV ONE (11:30)
--- NOTE | 2017-05-27 12:04 | PD.PROCEDR ---
Procedure Note Procedure Right pigtail chest tube placement Indication right pneumothorax, with tension features Procedure Emergency procedure. Patient was placed in optimal position. Right second intercostal space just above third rib was marked in mid clavicular line. Skin prepped with Chlorhexidine x3. Full barrier and sterile precautions were used, skin and subcutaneous tissue at the marked site was infiltrated with 1% lidocaine. A small skin sarthak was made with scalpel. Introducer needle was placed into the pleural space and cortés of air was obtained. The guidewire was inserted through the needle and the needle was removed. Track was dilated and a 10 [place] pigtail catheter was introduced into the pleural space using Seldinger technique and directed towards the apex. Guide Wire was removed and pigtail catheter was attached to the pleuro vac and placed on -40 wall suction. Chest x-ray postprocedure pending. Patient tolerated procedure well. Blood loss < 1ml Esteban Raines MD May 27, 2017 12:04
[2017-05-27] MEDS: SODIUM CHLORIDE 0.9% FLUSH 10 ML FLUSH IV FLUSH SCH (12:33)
[2017-05-27] MEDS: SODIUM CHLORIDE 0.9% FLUSH 10 ML FLUSH IVF SCH (12:37)
[2017-05-27] MEDS: NICOTINE 14 MG/24 HR PATCH T-DERMAL SCH (12:54)
[2017-05-27] MEDS: PANTOPRAZOLE SODIUM 40 MG VIAL IV PUSH SCH (12:54)
--- NOTE | 2017-05-27 13:03 | RADRPT ---
EXAM DATE/TIME: 05/27/2017 12:17 [facility] COMPARISON: CHEST SINGLE AP, May 27, 2017, 10:24. INDICATIONS : Right side chest tube placement. MEDICAL HISTORY : Chronic obstructive pulmonary disease. Seizures. SURGICAL HISTORY : Tracheostomy. ENCOUNTER: Initial ACUITY: 1 day PAIN SCORE: Non-responsive. LOCATION: Right chest FINDINGS: There is a right chest tube in place. The previously seen pneumothorax has resolved. ET tube tip is 5 .5 cm from the hoda in good position. The heart size is upper limits of normal. There continues to be increased density at the left base. There is subcutaneous emphysema seen in the neck. The patient is rotated towards the left. CONCLUSION: 1. Resolution of the right pneumothorax with placement of a right pigtail catheter. 2. Persistent consolidation or atelectasis in the left base. Olu Herrera MD on May 27, 2017 at 12:59 Board Certified Radiologist. This report was verified electronically.
--- NOTE | 2017-05-27 13:21 | HHI.IDPN ---
Subjective Subjective Remarks ID COVERAGE Chart reviewed is a 61y CM with PMHx of ETOH abuse, prior hepatic encephalopathy, chronic alcoholism, ETOH withdrawal seizures who presented with weakness, dizziness, and having a fall and not being able to get up, per EMR admitted . Since admission, has had complicated hospital course, has been reintubated at least 4x, ans subsequently underwent tracheostomy 05/19. ALso has had problems with abdominal distension, N/V, has had at least 2 decompressive colonoscopies, last one showing findings suggestive of either ischemic colitis or PMC. Notes reviewed D/W RN Transferred to ICU this morning Had respiratory problem, trach was clog Patient now intubated Also had pneumothorax on the right side, has a chest tube in place Temps ok He is sedated Antibiotics I attest I obtained, reviewed or updated the home meds and current meds (for name, dose, freq and route). Ceftriaxone IV Flagyl IV Current Medications Medications (Trade) Dose Ordered Sig/Brenda Route Start Time Stop Time Status Last Admin (Neurontin) 300 mg TID PO 04/27/17 13:00 Future hold 05/26/17 18:07 (Tylenol) 650 mg Q4H PRN PO 04/27/17 12:30 05/21/17 03:20 (Compazine Supp) 25 mg Q12H PRN RECTAL 04/27/17 12:30 (Narcan Inj) 0.4 mg UNSCH PRN IV PUSH 04/27/17 12:30 (Beena-Colace) 1 tab BID PO 04/27/17 21:00 Future hold 05/26/17 21:52 (Milk Of Magnesia Liq) 30 ml Q12H PRN PO 04/27/17 12:30 (Senokot) 17.2 mg Q12H PRN PO 04/27/17 12:30 (Dulcolax Supp) 10 mg DAILY PRN RECTAL 04/27/17 12:30 (Xifaxan) 550 mg BID PO 04/27/17 21:00 05/26/17 21:52 (Catapres) 0.1 mg Q6H PRN PO 04/27/17 12:30 (Habitrol 14 Mg Patch.24 Hr) 1 patch DAILY T-DERMAL 04/28/17 09:00 05/27/17 12:54 Miscellaneous Information 1 DAILY T-DERMAL 04/28/17 09:00 05/27/17 09:00 Miscellaneous Information Patient in critical care unit? Ass... Q361D .XX 04/27/17 17:30 (Peridex 0.12% Liq) 15 ml BID@08,20 MT 04/28/17 20:00 05/27/17 08:00 (Tears Naturale Opth Soln) 1 drop Q8HR EACH EYE 04/28/17 14:00 05/26/17 13:27 (Protonix Inj) 40 mg DAILY IV PUSH 04/28/17 09:30 05/27/17 12:54 (NS Flush) DAILY IVF 04/29/17 15:45 05/27/17 12:37 (NS Flush) UNSCH PRN IVF 04/29/17 15:45 05/17/17 08:12 (Vitamin B1) 100 mg DAILY PO 04/30/17 09:15 05/26/17 08:59 (Theragran) 1 tab DAILY PO 04/30/17 09:15 05/26/17 09:01 (Folate) 1 mg DAILY PO 04/30/17 09:15 05/26/17 08:59 (Heparin Inj) 5,000 units Q12HR SQ 05/08/17 21:00 Future Hold 05/18/17 09:48 (Albuterol Neb) 2.5 mg Q2HR NEB PRN NEB 05/11/17 13:45 (Reglan Inj) 10 mg Q8HR IV PUSH 05/12/17 14:00 05/27/17 06:10 (NS Flush) DAILY IV FLUSH 05/13/17 09:00 05/27/17 12:33 (NS Flush) UNSCH PRN IV FLUSH 05/12/17 14:30 05/20/17 13:12 (Brethine Inj) 1 mg UNSCH PRN SQ 05/12/17 14:30 (Symbicort 160-4.5 Inh) 2 puff Q12H INH 05/18/17 18:00 05/26/17 18:07 (Cathflo Activase Inj) 2 mg Q2H PRN INTRACATH 05/19/17 21:45 05/19/17 22:09 (Lactulose Liq) 30 ml BID PO 05/20/17 21:00 05/26/17 21:51 (Ees 200 Mg/5 ml Liq) 100 mg Q8HR PO 05/20/17 14:00 05/27/17 06:00 (K-Lyte Cl Eff) 25 meq Q12H PO 05/21/17 09:00 05/26/17 21:52 (Pulmicort Respule Neb) 0.5 mg Q12HR NEB NEB 05/21/17 08:00 05/27/17 07:41 Ceftriaxone Sodium 2000 mg/ Sodium Chloride 100 ml @ 200 mls/hr Q24H IV 05/21/17 10:00 05/28/17 09:59 05/27/17 11:14 (Flagyl) 500 mg Q8HR PO 05/23/17 14:00 06/05/17 12:00 05/27/17 06:10 (Melatonin) 5 mg HS PO 05/24/17 21:15 05/26/17 21:52 (ZyPREXA ZYDIS ODT) 5 mg Q24H PRN PO 05/24/17 23:00 (Haldol Inj) 5 mg Q4H PRN IV 05/24/17 21:15 05/26/17 21:52 (Peridex 0.12% Liq) 15 ml BID@08,20 MT 05/27/17 20:00 Propofol 100 ml @ 2.271 mls/ hr TITRATE PRN IV 05/27/17 10:45 05/27/17 11:18 Norepinephrine Bitartrate 250 ml @ 7.5 mls/hr TITRATE PRN IV 05/27/17 11:30 (Duoneb Neb) 1 ampule Q6HR NEB NEB 05/27/17 16:00 (SoluMEDROL INJ) 40 mg BID@0800,2000 IV PUSH 05/27/17 20:00 Lines Line sites with no e.o infection Past Medical History COPD and tobacco abuse Alcohol abuse History of alcohol withdrawal seizures Tonsillectomy Allergies: Coded Allergies: No Known Allergies (Verified Allergy, Unknown, 04/27/17) Uncoded Allergies: STEROIDS (Allergy, Unknown, 07/13/14) Objective . Vital Signs Date Time Temp Pulse Resp B/P (MAP) Pulse Ox O2 Delivery O2 Flow Rate FiO2 05/27/17 12:45 100 40 05/27/17 10:02 94 50 05/27/17 09:14 94 100 05/27/17 08:50 100 100 05/27/17 07:48 97 Trach Collar 28 05/27/17 04:00 99.7 110 20 122/78 (93) 94 05/27/17 00:00 99.2 110 20 120/80 (93) 96 05/26/17 20:01 94 Trach Collar 5.00 28 05/26/17 20:00 98.5 105 20 129/83 (98) 05/26/17 16:00 98.6 113 20 117/73 (88) 100 . Laboratory Tests Test 05/26/17 06:52 White Blood Count 17.4 TH/MM3 Red Blood Count 2.40 MIL/MM3 Hemoglobin 8.2 GM/DL Hematocrit 25.6 % Mean Corpuscular Volume 106.9 FL Mean Corpuscular Hemoglobin 34.2 PG Mean Corpuscular Hemoglobin Concent 32.0 % Red Cell Distribution Width 23.7 % Platelet Count 145 TH/MM3 Mean Platelet Volume 10.8 FL Neutrophils (%) (Auto) 86.1 % Lymphocytes (%) (Auto) 5.4 % Monocytes (%) (Auto) 6.6 % Eosinophils (%) (Auto) 1.7 % Basophils (%) (Auto) 0.2 % Neutrophils # (Auto) 15.0 TH/MM3 Lymphocytes # (Auto) 0.9 TH/MM3 Monocytes # (Auto) 1.2 TH/MM3 Eosinophils # (Auto) 0.3 TH/MM3 Basophils # (Auto) 0.0 TH/MM3 CBC Comment DIFF FINAL Differential Comment Microbiology Date/Time Source Procedure Growth Status 05/27/17 10:00 Bronchial Washings Right Lower Lobe Fungal Smear Pending Received 05/27/17 10:00 Bronchial Washings Right Lower Lobe Fungal Culture Pending Received 05/27/17 10:00 Bronchial Washings Left Lower Lobe Fungal Smear Pending Received 05/27/17 10:00 Bronchial Washings Left Lower Lobe Fungal Culture Pending Received 05/27/17 10:00 Bronchial Washings Right Lower Lobe Acid Fast Stain Pending Received 05/27/17 10:00 Bronchial Washings Right Lower Lobe Mycobacterial Culture Pending Received 05/27/17 10:00 Bronchial Washings Left Lower Lobe Acid Fast Stain Pending Received 05/27/17 10:00 Bronchial Washings Left Lower Lobe Mycobacterial Culture Pending Received 05/27/17 10:00 Bronchial Washings Right Lower Lobe Gram Stain Pending Received 05/27/17 10:00 Bronchial Washings Right Lower Lobe Bronchial Culture Pending Received 05/27/17 10:00 Bronchial Washings Left Lower Lobe Gram Stain Pending Received 05/27/17 10:00 Bronchial Washings Left Lower Lobe Bronchial Culture Pending Received Imaging Chest X-Ray 05/21/17 0600 Signed Impressions: Service Date/Time: Sunday, May 21, 2017 04:25 - CONCLUSION: 1. Cardiomegaly. Patchy alveolar disease characteristic of edema or pneumonia. There has been no significant change when compared to the prior exam. Fabrizio Odom MD Abdomen X-Ray 05/20/17 0600 Signed Impressions: Service Date/Time: Saturday, May 20, 2017 03:20 - CONCLUSION: 1. Dilatation of the transverse colon. Significant air filled small bowel is not seen. On the prior exam, the small bowel was prominent. 2. Hazy densities in the abdomen which may suggest ascites. 3. Left lower lobe consolidation or atelectasis. Olu Herrera MD Abdomen/Pelvis CT 05/12/17 0000 Signed Impressions: Service Date/Time: Friday, May 12, 2017 17:56 - CONCLUSION: 1. Left lower lobe collapse and lingular consolidation. Endobronchial soft tissue within the left lower lobe, Mass versus mucus plugging are differential diagnostic considerations. 2. Body wall edema and ascites. 3. Nonobstructing right renal calculus. 4. Colitis with abnormal bowel wall thickening involving the ascending colon, and diffuse small bowel dilatation characteristic of an ileus. Ray Finney MD Chest Ultrasound 05/08/17 0000 Signed Impressions: Service Date/Time: Monday, May 08, 2017 13:01 - CONCLUSION: 1. There is a small left pleural effusion with insufficient volume for thoracentesis at this time. Ronaldo Howell MD Abdomen Fluoroscopy 05/01/17 0000 Signed Impressions: Service Date/Time: Monday, May 01, 2017 13:13 - CONCLUSION: Uncomplicated nasogastric tube placement as above. Zain Kumar MD Lower Extremity Ultrasound 04/28/17 0000 Signed Impressions: Service Date/Time: Friday, April 28, 2017 16:47 - CONCLUSION: Negative exam with no evidence of deep venous thrombosis. Johnathon White MD Chest CT 04/28/17 0000 Signed Impressions: Service Date/Time: Friday, April 28, 2017 11:03 - CONCLUSION: 1. Small bilateral pleural effusions with atelectasis in both lower lobes. There is also a focal area of groundglass opacity in the lingula that is nonspecific but could represent an infectious or inflammatory process. 2. Moderate size hiatal hernia with dilated and fluid-filled esophagus suggesting gastroesophageal reflux. The nasogastric tube distal tip is in the distal esophagus and should ideally be advanced into the stomach. Olu Triana MD Head CT 04/27/17 1017 Signed Impressions: Service Date/Time: Thursday, April 27, 2017 11:00 - CONCLUSION: 1. No acute intracranial abnormality. 2. Complete opacification left maxillary sinus. Keagan Shipman MD Renal Ultrasound 04/27/17 0000 Signed Impressions: Service Date/Time: Thursday, April 27, 2017 23:50 - CONCLUSION: Negative renal sonogram. Rogerio Gunn MD Chest X-Ray 05/12/17 0600 Signed Impressions: Service Date/Time: Friday, May 12, 2017 03:49 - CONCLUSION: Upper lobe infiltrate with unchanged left lower lobe infiltrate. Rogerio Harris Jr., MD Abdomen/Pelvis CT 05/12/17 0000 Signed Impressions: Service Date/Time: Friday, May 12, 2017 17:56 - CONCLUSION: 1. Left lower lobe collapse and lingular consolidation. Endobronchial soft tissue within the left lower lobe, Mass versus mucus plugging are differential diagnostic considerations. 2. Body wall edema and ascites. 3. Nonobstructing right renal calculus. 4. Colitis with abnormal bowel wall thickening involving the ascending colon, and diffuse small bowel dilatation characteristic of an ileus. Ray Finney MD Abdomen X-Ray 05/12/17 0000 Signed Impressions: Service Date/Time: Friday, May 12, 2017 06:36 - CONCLUSION: 1. Reinsertion of the rectal tube which is coiled within the rectal vault. It may be kinked and not draining well. 2. Persistent gaseous distention of the colon although a slight decrease in the volume of gas. 3. New mildly dilated gas-filled loops of small bowel. Rogerio Harris Jr., MD Chest Ultrasound 05/08/17 0000 Signed Impressions: Service Date/Time: Monday, May 08, 2017 13:01 - CONCLUSION: 1. There is a small left pleural effusion with insufficient volume for thoracentesis at this time. Ronaldo Howell MD Abdomen Fluoroscopy 05/01/17 0000 Signed Impressions: Service Date/Time: Monday, May 01, 2017 13:13 - CONCLUSION: Uncomplicated nasogastric tube placement as above. Zain Kumar MD Lower Extremity Ultrasound 04/28/17 0000 Signed Impressions: Service Date/Time: Friday, April 28, 2017 16:47 - CONCLUSION: Negative exam with no evidence of deep venous thrombosis. Johnathon White MD Chest CT 04/28/17 Signed Impressions: Service Date/Time: Friday, April 28, 2017 11:03 - CONCLUSION: 1. Small bilateral pleural effusions with atelectasis in both lower lobes. There is also a focal area of groundglass opacity in the lingula that is nonspecific but could represent an infectious or inflammatory process. 2. Moderate size hiatal hernia with dilated and fluid-filled esophagus suggesting gastroesophageal reflux. The nasogastric tube distal tip is in the distal esophagus and should ideally be advanced into the stomach. Olu Triana MD Head CT 04/27/17 1017 Signed Impressions: Service Date/Time: Thursday, April 27, 2017 11:00 - CONCLUSION: 1. No acute intracranial abnormality. 2. Complete opacification left maxillary sinus. Keagan Shipman MD Renal Ultrasound 04/27/17 0000 Signed Impressions: Service Date/Time: Thursday, April 27, 2017 23:50 - CONCLUSION: Negative renal sonogram. Rogerio Gunn MD Physical Exam GENERAL: Sedated, intubated SKIN: Warm and dry, no generalized rash HEAD: Atraumatic. Normocephalic. No temporal or scalp tenderness. EYES: Pupils equal round and reactive. [place] conjunctiva. No petechia or injection. No scleral icterus ENT: Nose without bleeding, purulent drainage or septal hematoma. Orally intubated NECK: Trach site has packing CARDIOVASCULAR: Regular rate and rhythm without murmurs. RESPIRATORY: Coarse breath sounds bilaterally, decreased at the bases, right pigtail chest tube in place GASTROINTESTINAL: Abdomen soft, slightly distended, no reaction to palpation. (+) BS, not guarding. PEG site ok MUSCULOSKELETAL: Extremities without clubbing, cyanosis. Edema improving NEUROLOGICAL: Sedated PSYCH: Unable to assess : Condom catheter in place, urine looks clear IV line sites with no e.o infection. Assessment & Plan Remarks IMPRESSION Aspiration Pneumonia (vomiting due to Gaseous distention this am) s/p colonic decompression 05/12/17 and other times in this admission. - sputum C/S E coli Ileus S/P decompression - PMC vs ischemic colitis on path report Pseudomembranous colitis (r/o cdiff) COPD exacerbation Alcoholism Cirrhosis of liver. Acute metabolic encephalopathy leukocytosis, still high, but slightly lower Respiratory failure, recurrent, due to a clogged trach, now intubated Right pneumothorax PLAN Continue Rocephin - give 7 days, end date ordered in hereO - To finish 05/28 Continue Flagyl IV (anaerobes and Cdiff coverage). Cdiff can be negative with use of barrier cream used in pericare. - end date ordered in hereO - To get 14 days Monitor progress Will need revision of his tracheostomy Discussed with Dr. Raines ([facility]) D/W Violet Tom MD May 27, 2017 13:21
[2017-05-27 16:12] LABS: AUTOMATED NEUTROPHIL # 12.7 TH/MM3 (1.8-7.7); BASOPHIL % 0.2 % (0.0-2.0); EOSINOPHIL # 0.4 TH/MM3 (0-0.4); EOSINOPHIL % 2.3 % (0.0-4.0); HEMATOCRIT 27.2 % (39.0-51.0); HEMO FLAGS DIFF FINAL; LYMPH % 6.9 % (9.0-44.0); LYMPHOCYTE # 1.1 TH/MM3 (1.0-4.8); MEAN CELL VOLUME 109.7 FL (80.0-100.0); MEAN CORPUSCULAR HEMOGLOBIN 34.2 PG (27.0-34.0); MEAN CORPUSCULAR HGB CONC 31.2 % (32.0-36.0); MONO % 7.3 % (0.0-8.0); NEUT % 83.3 % (16.0-70.0); PLATELET COUNT 159 TH/MM3 (150-450); RED BLOOD COUNT 2.48 MIL/MM3 (4.50-5.90); WHITE BLOOD COUNT 15.3 TH/MM3 (4.0-11.0)
[2017-05-27 16:23] LABS: ANION GAP 8 MEQ/L (5-15); AST (GOT) 49 U/L (15-37); BICARBONATE 24.8 MEQ/L (21.0-32.0); BLOOD UREA NITROGEN 20 MG/DL (7-18); CHLORIDE 119 MEQ/L (98-107); GLOMERULAR FILTRATION RATE 232 ML/MIN (>89); MAGNESIUM 1.7 MG/DL (1.5-2.5); POTASSIUM 3.8 MEQ/L (3.5-5.1); SODIUM (NA) 152 MEQ/L (136-145)
[2017-05-27 16:26] LABS: ALKALINE PHOSPHATASE 104 U/L (45-117); ALT (GPT) 43 U/L (12-78); TOTAL BILIRUBIN ADULT 0.6 MG/DL (0.2-1.0)
[2017-05-27] MEDS: methylPREDNISolone SOD SUCC 40 MG/1 ML VIAL IV PUSH SCH (20:00)
[2017-05-27] MEDS: MELATONIN 5 MG TAB PO SCH (21:00)
[2017-05-28] VITALS (20 sets, daily range): BP systolic 86–131; BP diastolic 52–77; PULSE 66–141; RESP 18–25; TEMP 97.3–100.3; O2SAT 98–100
[2017-05-28] MEDS: PROPOFOL 1000 MG/100 ML INJ 100 ML IV PRN (02:15)
[2017-05-28] MEDS: RESP: ALBUTEROL 2.5 MG/IPRATROPIUM 0.5 MG NEB (SCH) NEB ×4 (03:30→19:59)
[2017-05-28] MEDS: METOCLOPRAMIDE HCL 10 MG/2 ML VIAL IV PUSH SCH ×3 (06:05→20:00)
[2017-05-28] MEDS: metroNIDAZOLE 500 MG TAB PO SCH ×4 (06:05→20:01)
[2017-05-28] MEDS: ERYTHROMYCIN ETHYLSUCCINATE 200 MG/5 ML SUSP 100 ML BOTTLE PO SCH ×4 (06:05→20:02)
[2017-05-28] MEDS: ARTIFICIAL TEARS OPTH SOLN 15 ML BTL EACH EYE SCH ×3 (06:05→20:00)
[2017-05-28 07:13] LABS: BLOOD GAS BASE EXCESS -2.3 mmol/L (-2-2); BLOOD GAS CARBOXYHEMOGLOBIN 1.6 % (0-4); BLOOD GAS HCO3 22 mmol/L (22-26); BLOOD GAS O2 HGB SATURATION 96 % (90-100); BLOOD GAS OXYGEN CONTENT 12.3 Vol % (12.0-20.0); BLOOD GAS PCO2 39 mmHg (38-42); BLOOD GAS PO2 140 mmHg (61-120); BLOOD GAS TOTAL HGB 8.9 G/DL (12.0-16.0); CRITICAL VALUE YES; FIO2 40 %; OXYGEN DEVICE VENTILATOR; TEMP CORR TO 98.6; VENT SETTINGS PRVC/24/550/+5
[2017-05-28 07:14] LABS: DRAW SITE ART LINE; STAT YES
--- NOTE | 2017-05-28 07:31 | PD.PROCEDR ---
Procedure Note Procedure CPR procedure note Presenting rhythm: Ventricular fibrillation Event Details: Defibrillation times one. Please see separate code sheet for further details Procedure Description: Arrived at [facility]. Followed ACLS guidelines. See code sheet for details. I was personally present for the entire CPR event. Gabriel Alvares MD May 28, 2017 07:31
--- NOTE | 2017-05-28 07:32 | PD.PROCEDR ---
Procedure Note Procedure Procedure: Arterial Line Placement Right femoral 16-gauge arterial line Diagnosis: Status post cardiac arrest Indications: And need for beat to beat hemodynamic monitoring Consent: Emergent Description of the Procedure: The right groin was prepped and draped sterilely. The pulse was located and a needle was advanced into the artery. A 16 gauge, 20 cm catheter was advanced into the artery using a modified Seldinger technique. The catheter was sutured to the skin and a sterile dressing was applied. The catheter was connected to a pressure transducer and an arterial waveform was noted. There were no immediate complications noted. There was minimal EBL. I personally performed the procedure. Gabriel Alvares MD May 28, 2017 07:32
--- NOTE | 2017-05-28 07:33 | PD.PROCEDR ---
Procedure Note Procedure Central Line Procedure Note Right femoral 7 Arabic 20 cm triple lumen catheter Diagnosis: Post cardiac arrest Indications: And need for highly potent vasoactive substances Consent: Emergent Anesthesia: none Description of the Procedure: The patient was placed in the supine, mild- Trendelenburg position. The area was prepped and draped sterilely. A 19g needle was inserted under negative pressure aspiration and dark venous blood was obtained. A guidewire was inserted easily without resistance. A small incision was made using a #11 blade. Using a modified Seldinger technique, the dilator and 7 Arabic, 20 cm catheter were advanced over the guidewire without resistance. All ports were aspirated and flushed, and had brisk blood return. The line was secured at the skin using 2-0 silk interrupted sutures. A Biopatch and Transparent sterile dressing were applied. There were no immediate complications noted. There was minimal EBL. The patient tolerated the procedure well. Ultrasound guidance was not used for this procedure I personally performed the procedure. Gabriel Alvares MD May 28, 2017 07:33
--- NOTE | 2017-05-28 07:41 | RADRPT ---
EXAM DATE/TIME: 05/28/2017 07:21 [place] COMPARISON: CHEST SINGLE AP, May 27, 2017, 12:17. INDICATIONS : Short of breath. MEDICAL HISTORY : Chronic obstructive pulmonary disease. SURGICAL HISTORY : None. ENCOUNTER: Subsequent ACUITY: 1 month PAIN SCORE: Non-responsive. LOCATION: Bilateral chest FINDINGS: Stable ETT and right apical chest tube. Increased airspace disease in the right upper lobe. No signif icant residual pneumothorax. Redemonstration of left basilar pleural-parenchymal disease. Cardiomedia stinal contours are stable. There is improved subcutaneous emphysema. CONCLUSION: 1. Stable ETT and right apical chest tube with no significant pneumothorax. Improving subcutaneous em physema. 2. Worsening right upper lobe airspace disease. 3. Stable left basilar pleural-parenchymal disease. Ronaldo Howell MD on May 28, 2017 at 7:37 Board Certified Radiologist. This report was verified electronically.
[2017-05-28] MEDS ORDERED: fentaNYL DRIP 250 ML IV PRN (07:45)
[2017-05-28] MEDS ORDERED: NOREPINEPHRINE-DEXTROSE DRIP 250 ML IV PRN ×2 (07:45→13:00)
--- NOTE | 2017-05-28 07:54 | HHI.CCPN ---
Subjective Remarks/Hospital Course 61yM with h/o prior hepatic encephalopathy, etoh abuse, tobacco abuse, now admitted with weakness, fever, chills, worsening hypotension. called by hospitalist service overnight for clinical decline despite ivf resuscitation. Patient does complain of flank pain, but denies chest pain, abdominal pain. u/a +. started earlier on vanc/zosyn. has not voided. becoming worseningly agitated. unable to provide any additional information due to altered mental status. 04/28: Chart reviewed. Patient still quite agitated stating "I have to pee" patient has a Young catheter. Complaining of flank pain. Noted renal ultrasound negative. Currently on norepinephrine at 12 mg per minute. 04/29: Resting in bed in no acute distress. Currently on norepinephrine at 7 per minute for vasopressor support. Transfuse 2 units PRBC and 2 pack platelets overnight. Dilutional. Absolutely no signs of active bleeding. 04/30 Patient is sedated with Fentanyl and intubated. On Levophed 5 mics. Afebrile. For EGD today. 05/01 No events overnight. Sedated and intubated. On Levophed 4 mics. s/p EGD yesterday with shoed esophagitis, gastritis, food impaction in distal esophagus removed. 05/02: Afebrile. Off all vasopressors. NG tube advanced by IR yesterday. Feeding to be initiated today. Currently on fentanyl drip 05/03: Remains intubated sedated and not following commands remains on fentanyl infusion. Attempt CPAP trial if patient wakeful enough. Urine output minimal only 300 mL in 24 hours. Will give albumin and Bumex 05/04 Patient is sedated with Fentanyl and intubated. Afebrile. 05/05 Patient was self extubated last night. For possible decompressive colonoscopy today. Afebrile. 05/06 Patient is on 3L oxygen for decompressive colonoscopy today. On Precedex drip for agitation. CT abdomen/pelvis last night showed development of gaseous distention of the right and transverse colon with abrupt change in luminal dimension at the splenic flexure. There is a rectal tube in place and cannot differentiate between a focal obstruction/stricture versus decompression from the rectal tube. 05/07 Patient s/p decompressive colonoscopy last night KUB this morning showed decreased colonic distention. On 4L oxygen. 05/08 Patient was unresponsive on BIPAP this morning and was in resp distress he was subsequently intubated and placed on mechanical ventilation. CXR post intubation showed complete opacification of left hemithorax likely 2nd mucous plug 05/09 Patient is sedated with Fentanyl and intubated. Afebrile. 05/10 Patient remains sedated and intubated. Afebrile. Tolerating tube feeds 05/11: Tolerated PSV trials 3 hours today. Not tolerating tube feeding currently. KUB pending. Positive BM. Decreased urine output noted. 05/12: Lasted 1 hour on PSV trials today. Currently vomiting will be decompressed from above and below per GI today. Afebrile. Central line placed due to persistent hypotension 05/13: Permission from mother for bronchoscopy today for diagnosis left lower lobe on CAT scan of min/pelvis yesterday. Sample sent. Currently on linezolid , cefepime and Flagyl per infectious disease. 05/14: Patient remains intubated sedated, on sedation hold do not follow commands , but moving extremities. Initially intubated 04/28, self extubated 05/05, Re intubated for mucus plugging, AMS on 05/07 night. Combined vent day , mental status will not permit extubation. Copious yellow ETT secretions. 05/15: Gets agitated on CPAP. But intermittently follows commands. Good oxygen saturation. Chest x-ray shows improved aeration. Moderate secretions from ET tube but good cough. Will proceed with extubation. Remains full code 05/16: Patient was extubated yesterday but failed in about 1 hour due to stridor and tachypnea. Today off sedation mentation seems to be improved, tolerates CPAP with high settings but has bilateral crackles and coarse rhonchi. Family (son and daughter) starting in from [place]. Will be here tomorrow 05/17/17 and request the patient to be left intubated until they get here 05/17: Patient is more awake alert and appropriate in communicating even though on low-dose propofol and intubated. Waiting for family to arrive from [place] tonight. Possible weaning to extubation tomorrow 05/18: Awake alert following command on vent. Palliative care is meeting with family today. Once decision re: goals of care are made, most likely proceed with extubation 05/19: Patient was extubated yesterday and there myself under palliative care nurse practitioner Adalgisa Ellington had a detailed discussion with the patient. After talking to the family patient decided he wants to be full code and wants a tracheostomy and PEG tube done since this is his fourth reintubation. Currently intubated sedated tracheostomy today 05/20: Status post tracheostomy yesterday 05/19/17. Based on CPAP tolerating well now. We'll attempt T piece today. Discontinue Versed use propofol as needed. Labs pending 05/21: Remains intubated sedated. Tolerated CPAP 3 hours yesterday. Remains significantly fluid positive at least 2 KG since admission. Significant anasarca. Start on Bumex infusion. Chest x-ray shows fluid overload/pulmonary edema 05/22: Excellent diuresis with Bumex gtt. 6.8L in 24 hours and wt down by 5 kg, still kg up from admission weight. Tolerating TP. Possible PEG today 05/23: Currently patient is on TPs tolerating well. Attempts to talk. Up to stretcher chair today. Urine output more than 10 L on Bumex drip. Change to scheduled Bumex and one dose of Diamox 05/24: Tolerated TP all day, CPAP at night. >5L UO in 24 hours. We'll stop scheduled Bumex now, weight is down to admission weight. Use Bumex as needed 05/25: Patient able to talk with [place] valve. BUN/cr stable. WBC starting to trend down, Solu-Medrol reduced. CCM RECONSULT NOTE: Emergency re consult for trach malfunction, with hypoxia. According to the RT report, patient was hypoxic on the floor and trach was obstructed and partially dislodged. Respiratory therapist removed the inner cannula which was obstructed and tried to place a new inner cannula but the syed on trach was broke. So respiratory therapist removed the existing perc trach and placed a new cuffed fenestrated trach (only one available on floor at that time). Passage was difficult and he was not able to pass a suction catheter and a Halicat was called and patient was emergently moved to [facility], Dr. Montes accompanied the patient. When patient was breathing spontaneously he had bilateral air entry, I called for emergent bronchoscopy. Patient had severe respiratory distress and mechanical ventilation was attempted. We could not get sufficient volume and, patient started developing significant subcutaneous emphysema involving the neck indicating new tracheostomy false passage. I disconnected the patient performed a emergency orotracheal intubation, once the tube placement was confirmed Dr. Montes pulled out the existing fenestrated tracheostomy. ET tube was further advanced and again confirmed with end-tidal CO2 monitor. Suction catheter now was easily passed and copious amounts of secretions were suctioned out. I will perform a bronchoscopy to confirm placement 05/28: patient had witnessed V. Fib arrest around 06:15am during bath. CPR immediately started (see separate documentation for details). ROSC obtained after DC cardioversion x 1. had discussion with son immediately after ROSC and son elects to make the patient DNR so that if we lose perfusing rhythm, we will let him . Otherwise continue aggressive medical therapy. Objective Vital Signs Date Time Temp Pulse Resp B/P (MAP) Pulse Ox O2 Delivery O2 Flow Rate FiO2 05/28/17 03:31 100 40 05/28/17 00:00 97.3 74 18 92/66 (75) 05/27/17 07:48 Trach Collar 05/26/17 20:01 5.00 Intake and Output 05/28/17 05/28/17 05/29/17 08:00 16:00 00:00 Intake Total 100 ml Balance 100 ml Result Diagram: 05/27/17 1436 05/27/17 1436 Other Results Laboratory Tests Test 05/27/17 09:00 05/28/17 06:55 Blood Gas Puncture Site L FEM ART LINE Blood Gas Patient Temperature 98.6 98.6 Blood Gas HCO3 25 mmol/L (22-26) 22 mmol/L (22-26) Blood Gas Base Excess 2.3 mmol/L (-2-2) -2.3 mmol/L (-2-2) Blood Gas Oxygen Saturation 97 % (90-100) 96 % (90-100) Arterial Blood pH 7.51 (7.380-7.420) 7.38 (7.380-7.420) Arterial Blood Partial Pressure CO2 32 mmHg (38-42) 39 mmHg (38-42) Arterial Blood Partial Pressure O2 315 mmHg (61-120) 140 mmHg (61-120) Arterial Blood Oxygen Content 11.4 Vol % (12.0-20.0) 12.3 Vol % (12.0-20.0) Arterial Blood Carboxyhemoglobin 2.2 % (0-4) 1.6 % (0-4) Arterial Blood Methemoglobin 0.9 % (0-2) 1.0 % (0-2) Blood Gas Hemoglobin 7.8 G/DL (12.0-16.0) 8.9 G/DL (12.0-16.0) Oxygen Delivery Device VENTILATOR VENTILATOR Blood Gas Ventilator Setting SEE COMMENT PRVC/24/550/+5 Blood Gas Inspired Oxygen 40 % Imaging Last Impressions Chest X-Ray 05/13/17 Signed Impressions: Service Date/Time: Saturday, May 13, 2017 13:22 - CONCLUSION: Stable chest appearance. Nasogastric tube in the distal esophagus Olu Rodriguez MD Abdomen/Pelvis CT 05/12/17 Signed Impressions: Service Date/Time: Friday, May 12, 2017 17:56 - CONCLUSION: 1. Left lower lobe collapse and lingular consolidation. Endobronchial soft tissue within the left lower lobe, Mass versus mucus plugging are differential diagnostic considerations. 2. Body wall edema and ascites. 3. Nonobstructing right renal calculus. 4. Colitis with abnormal bowel wall thickening involving the ascending colon, and diffuse small bowel dilatation characteristic of an ileus. Ray Finney MD Abdomen X-Ray 05/12/17 Signed Impressions: Service Date/Time: Friday, May 12, 2017 06:36 - CONCLUSION: 1. Reinsertion of the rectal tube which is coiled within the rectal vault. It may be kinked and not draining well. 2. Persistent gaseous distention of the colon although a slight decrease in the volume of gas. 3. New mildly dilated gas-filled loops of small bowel. Rogerio Harris Jr., MD Chest Ultrasound 05/08/17 Signed Impressions: Service Date/Time: Monday, May 08, 2017 13:01 - CONCLUSION: 1. There is a small left pleural effusion with insufficient volume for thoracentesis at this time. Ronaldo Howell MD Abdomen Fluoroscopy 05/01/17 0000 Signed Impressions: Service Date/Time: Monday, May 01, 2017 13:13 - CONCLUSION: Uncomplicated nasogastric tube placement as above. Zain Kumar MD Lower Extremity Ultrasound 04/28/17 0000 Signed Impressions: Service Date/Time: Friday, April 28, 2017 16:47 - CONCLUSION: Negative exam with no evidence of deep venous thrombosis. Johnathon White MD Chest CT 04/28/17 0000 Signed Impressions: Service Date/Time: Friday, April 28, 2017 11:03 - CONCLUSION: 1. Small bilateral pleural effusions with atelectasis in both lower lobes. There is also a focal area of groundglass opacity in the lingula that is nonspecific but could represent an infectious or inflammatory process. 2. Moderate size hiatal hernia with dilated and fluid-filled esophagus suggesting gastroesophageal reflux. The nasogastric tube distal tip is in the distal esophagus and should ideally be advanced into the stomach. Olu Triana MD Head CT 04/27/17 1017 Signed Impressions: Service Date/Time: Thursday, April 27, 2017 11:00 - CONCLUSION: 1. No acute intracranial abnormality. 2. Complete opacification left maxillary sinus. Keagan Shipman MD Renal Ultrasound 04/27/17 0000 Signed Impressions: Service Date/Time: Thursday, April 27, 2017 23:50 - CONCLUSION: Negative renal sonogram. Rogerio Gunn MD Objective Remarks GENERAL: elderly-appearing male, lying in bed, intubated, sedated SKIN: Warm and dry. Skin wrinkled HEAD: Normocephalic. EYES: No scleral icterus. ENT: orotracheally intubated. NECK: no jvd. trach stoma covered with dressing. trachea midline. CARDIOVASCULAR: Tachycardic. regular rhythm. sbp 160 after ROSC. RESPIRATORY: Breath sounds diminished bilaterally. Significant accessory muscle use. prvc 100% fio2, peep 10. GASTROINTESTINAL: No guarding. No rigidity. MSK: Skin appears dry and wrinkled NEURO: RASS -5. ROSC just obtained. holding sedating meds. pupils still reactive. Date of Removal: May 26, 2017 A/P Assessment and Plan Assessment: 62yM with [id number] respiratory failure, fresh trach dislodgement, and now V. Fib arrest. Likely V. Fib arrest is secondary to myocardial demand ischemia from his hypoxic event yesterday and his critical illness. we will trend troponins whiich we expect to be elevated secondary to injury from defibrillation but will trend to ensure downtrending. replace Young catheter and monitor uop. place invasive arterial and central access and start norepinephrine to maintain map > 65 mmHg to continue adequate coronary perfusion and cerebral perfusion post-arrest. will hold sedation until neuro exam improves. remains critically ill. will still need definitive airway and if his neuro exam improves, will need to proceed with replacement of trach. Neuro/Psych: Acute metabolic encephalopathy Alcohol dependence Hypoxic Ischemic Encephalopathy hold sedating meds until neuro exam improves. CT brain 04/27 revealed left maxillary sinusitis otherwise no acute intra- cranial findings Patient does have a history of EtOH withdrawal seizures. Seizure precautions. Thiamine, folate and multivitamin daily CV: post-Ventricular Fibrillation cardiac arrest 05/28 Cardiogenic shock levophed for map > 65 mmHg. Monitor HR and BP keep MAP>65mmHg Bumex DCd 05/24/17 trend troponins ekg Resp: Attempted trach exchange by RT with false passage Pneumothorax pneumomediastinum and subcutaneous emphysema secondary to above Acute hypoxemic respiratory failure s/p Perc Trach 05/19/17 COPD exacerbation Ongoing tobaccoism Orotracheally intubated and tracheostomy removed, site packed. If clinically stabilizes out, will still plan on replacing tracheostomy today or tomorrow for definitive airway. s/p Perc Trach 05/19/17. (Skyla Raines/Ken). Patient wanted full code including tracheostomy and PEG tube placement. Continue solumedrol to 40 mg qd. inhaled budesonide. Albuterol/ipratropium aerosols every 6 hours and albuterol aerosols every 2 hours. PRN GI: Hyperammonemia Colonic Ileus, small bowel ileus - resolving. Hypoalbuminemia- moderate protein calorie malnutrition Hepatic steatosis Keep NPO Previously Ileus improving clinically and on KUB, tube feeds restarted by GI. Having bowel movements PEG 05/22, tolerating tube feeds s/p decompressive colonoscopy 05/06: Stool throughout the colon, Decompression colon tube was placed s/p EGD 04/30: Esophagitis, gastritis, food impaction in distal esophagus removed. Pantoprazole for GI prophylaxis. Docusate sodium/senna 1 tablet twice a day for bowel regimen. Continue Reglan : Right kidney nonobstructing stone 3 mm Monitor renal function, I/O's, electrolytes replacement per protocol. replace Young given recent cardiac arrest. strict i/o's. Endo: Hypokalemia hypomagnesemia Sliding-scale insulin to maintain euglycemia with Accu-Cheks every 6 hours with low regimen with Novolin R Electrolyte Replacement per protocol check phos level. Heme: Leukocytosis - resolving. Macrocytic anemia Patient was transfused 2 pack platelets and 2 PRBC 04/28. Follow CBC daily. Monitor trends. ID: Possible C. difficile colitis Aspiration pneumonia, E Coli in sputum Per infectious disease on ceftriaxone and metronidazole. Linezolid DCd 05/16/17 s/p Zosyn 04/27- 05/06 BAL results 05/09 and 05/13- NG. Sputum E Coli-S to cefepime Blood cultures 2 -04/27 -no growth Urine culture - 04/27 - NG. Sputum 04/28- normal resp andrea Urine pneumococcal and Legionella antigens negative MSK: PT/OTevaluate and treat, when more stable Access -Use PIV Prophylaxis - GI - pantoprazole - DVT - SCD/ Heparin SQ-Hold to complete procedures This patient remains critically ill with one or more organ systems which are or may become a threat to life. I have spent in excess of 91 minutes discontinuously in the care and management of this patient. This time is exclusive of procedures, and includes, but is not limited to, evaluation of the patient, review of the medical record, discussions with family, consultants, nursing staff, or respiratory therapy, and documentation in the medical record. Gabriel Alvares MD May 28, 2017 07:53
[2017-05-28] MEDS: RESP: BUDESONIDE 0.5 MG/2 ML NEB NEB SCH ×2 (08:00→19:59)
[2017-05-28] MEDS ORDERED: CALCIUM CHLORIDE 10% SOLN 1 GRAM/10 ML SYR IV ONE (08:40)
[2017-05-28] MEDS ORDERED: EPINEPHrine HCL (1:10,000) 1 MG/10 ML SYRINGE IV ONE (08:40)
[2017-05-28] MEDS ORDERED: SODIUM BICARBONATE 8.4% INJ 50 MEQ/50 ML SYR IV ONE (08:40)
[2017-05-28] MEDS: RIFAXIMIN 550 MG TAB PO SCH ×2 (09:00→20:01)
[2017-05-28] MEDS: LACTULOSE SYRUP 20 GM/30 ML CUP PO SCH ×2 (09:00→20:01)
[2017-05-28] MEDS: FOLIC ACID 1 MG TAB PO SCH (09:00)
[2017-05-28] MEDS: MULTIVITAMIN TAB PO SCH (09:00)
[2017-05-28] MEDS: DOCUSATE SODIUM 50 MG/SENNA 8.6 MG TAB PO SCH ×2 (09:00→19:30)
[2017-05-28] MEDS: THIAMINE HCL 100 MG TAB PO SCH (09:00)
[2017-05-28] MEDS: REMOVE OLD PATCH T-DERMAL SCH (09:00)
[2017-05-28] MEDS: GABAPENTIN 300 MG CAP PO SCH ×4 (09:00→17:29)
[2017-05-28] MEDS: POTASSIUM CHLORIDE 25 MEQ EFFERVESCENT TAB PO SCH ×2 (09:00→20:01)
--- NOTE | 2017-05-28 09:08 | HHI.IDPN ---
Subjective Subjective Remarks ID COVERAGE Chart reviewed is a 61y CM with PMHx of ETOH abuse, prior hepatic encephalopathy, chronic alcoholism, ETOH withdrawal seizures who presented with weakness, dizziness, and having a fall and not being able to get up, per EMR admitted . Since admission, has had complicated hospital course, has been reintubated at least 4x, ans subsequently underwent tracheostomy 05/19. ALso has had problems with abdominal distension, N/V, has had at least 2 decompressive colonoscopies, last one showing findings suggestive of either ischemic colitis or PMC. Notes reviewed D/W RN Patient coded this morning - vfib arrest On levophed FiO2 at 100% Temps ok He is sedated Antibiotics Ceftriaxone IV Flagyl IV I attest I obtained, reviewed or updated the home meds and current meds (for name, dose, freq and route). Current Medications Medications (Trade) Dose Ordered Sig/Brenda Route Start Time Stop Time Status Last Admin (Neurontin) 300 mg TID PO 04/27/17 13:00 Future hold 05/27/17 17:29 (Tylenol) 650 mg Q4H PRN PO 04/27/17 12:30 05/21/17 03:20 (Compazine Supp) 25 mg Q12H PRN RECTAL 04/27/17 12:30 (Narcan Inj) 0.4 mg UNSCH PRN IV PUSH 04/27/17 12:30 (Beena-Colace) 1 tab BID PO 04/27/17 21:00 Future hold 05/27/17 21:00 (Milk Of Magnesia Liq) 30 ml Q12H PRN PO 04/27/17 12:30 (Senokot) 17.2 mg Q12H PRN PO 04/27/17 12:30 05/27/17 21:11 (Dulcolax Supp) 10 mg DAILY PRN RECTAL 04/27/17 12:30 (Xifaxan) 550 mg BID PO 04/27/17 21:00 05/27/17 21:11 (Catapres) 0.1 mg Q6H PRN PO 04/27/17 12:30 (Habitrol 14 Mg Patch.24 Hr) 1 patch DAILY T-DERMAL 04/28/17 09:00 05/27/17 12:54 Miscellaneous Information 1 DAILY T-DERMAL 04/28/17 09:00 05/27/17 09:00 Miscellaneous Information Patient in critical care unit? Ass... Q361D .XX 04/27/17 17:30 (Peridex 0.12% Liq) 15 ml BID@08,20 MT 04/28/17 20:00 05/27/17 21:10 (Tears Naturale Opth Soln) 1 drop Q8HR EACH EYE 04/28/17 14:00 05/28/17 06:05 (Protonix Inj) 40 mg DAILY IV PUSH 04/28/17 09:30 05/27/17 12:54 (NS Flush) DAILY IVF 04/29/17 15:45 05/27/17 12:37 (NS Flush) UNSCH PRN IVF 04/29/17 15:45 05/17/17 08:12 (Vitamin B1) 100 mg DAILY PO 04/30/17 09:15 05/26/17 08:59 (Theragran) 1 tab DAILY PO 04/30/17 09:15 05/26/17 09:01 (Folate) 1 mg DAILY PO 04/30/17 09:15 05/26/17 08:59 (Heparin Inj) 5,000 units Q12HR SQ 05/08/17 21:00 Future Hold 05/18/17 09:48 (Albuterol Neb) 2.5 mg Q2HR NEB PRN NEB 05/11/17 13:45 (Reglan Inj) 10 mg Q8HR IV PUSH 05/12/17 14:00 05/28/17 06:05 (NS Flush) DAILY IV FLUSH 05/13/17 09:00 05/27/17 12:33 (NS Flush) UNSCH PRN IV FLUSH 05/12/17 14:30 05/20/17 13:12 (Brethine Inj) 1 mg UNSCH PRN SQ 05/12/17 14:30 (Symbicort 160-4.5 Inh) 2 puff Q12H INH 05/18/17 18:00 05/26/17 18:07 (Cathflo Activase Inj) 2 mg Q2H PRN INTRACATH 05/19/17 21:45 05/19/17 22:09 (Lactulose Liq) 30 ml BID PO 05/20/17 21:00 05/27/17 21:00 (Ees 200 Mg/5 ml Liq) 100 mg Q8HR PO 05/20/17 14:00 05/28/17 06:05 (K-Lyte Cl Eff) 25 meq Q12H PO 05/21/17 09:00 05/27/17 21:11 (Pulmicort Respule Neb) 0.5 mg Q12HR NEB NEB 05/21/17 08:00 05/27/17 19:54 Ceftriaxone Sodium 2000 mg/ Sodium Chloride 100 ml @ 200 mls/hr Q24H IV 05/21/17 10:00 05/28/17 09:59 05/27/17 11:14 (Flagyl) 500 mg Q8HR PO 05/23/17 14:00 06/05/17 12:00 05/28/17 06:05 (Melatonin) 5 mg HS PO 05/24/17 21:15 05/26/17 21:52 (ZyPREXA ZYDIS ODT) 5 mg Q24H PRN PO 05/24/17 23:00 (Haldol Inj) 5 mg Q4H PRN IV 05/24/17 21:15 05/26/17 21:52 (Peridex 0.12% Liq) 15 ml BID@08,20 MT 05/27/17 20:00 Propofol 100 ml @ 2.271 mls/ hr TITRATE PRN IV 05/27/17 10:45 05/28/17 02:15 (Duoneb Neb) 1 ampule Q6HR NEB NEB 05/27/17 16:00 05/28/17 03:30 (SoluMEDROL INJ) 40 mg BID@0800,2000 IV PUSH 05/27/17 20:00 05/27/17 20:00 Fentanyl Citrate 250 ml @ 5 mls/hr TITRATE PRN IV 05/28/17 07:45 05/28/17 07:58 Norepinephrine Bitartrate 250 ml @ 7.5 mls/hr TITRATE PRN IV 05/28/17 07:45 Lines Line sites with no e.o infection Past Medical History COPD and tobacco abuse Alcohol abuse History of alcohol withdrawal seizures Tonsillectomy Allergies: Coded Allergies: No Known Allergies (Verified Allergy, Unknown, 04/27/17) Uncoded Allergies: STEROIDS (Allergy, Unknown, 07/13/14) Objective . Vital Signs Date Time Temp Pulse Resp B/P (MAP) Pulse Ox O2 Delivery O2 Flow Rate FiO2 05/28/17 08:49 98 100 05/28/17 04:00 97.5 66 18 96/60 (72) 100 05/28/17 04:00 40 05/28/17 03:31 100 40 05/28/17 00:15 98 40 05/28/17 00:00 40 05/28/17 00:00 97.3 74 18 92/66 (75) 100 05/27/17 20:00 97.1 74 17 85/62 (70) 100 05/27/17 20:00 40 05/27/17 19:58 98 40 05/27/17 18:00 85 05/27/17 16:28 99 40 05/27/17 16:00 40 05/27/17 16:00 86 05/27/17 16:00 86 25 99/67 (78) 95 05/27/17 15:00 77 24 110/64 (79) 97 05/27/17 14:00 74 05/27/17 14:00 98.4 74 16 91/66 (74) 97 05/27/17 13:00 79 16 105/67 (80) 99 05/27/17 12:45 100 40 05/27/17 12:00 50 05/27/17 12:00 98.9 68 16 112/75 (87) 100 05/27/17 12:00 68 05/27/17 11:00 108 16 117/81 (93) 94 05/27/17 10:02 94 50 05/27/17 10:00 108 16 124/78 (93) 100 05/27/17 10:00 108 05/27/17 09:40 97 100 05/27/17 09:14 94 100 . Laboratory Tests Test 05/27/17 14:36 White Blood Count 15.3 TH/MM3 Red Blood Count 2.48 MIL/MM3 Hemoglobin 8.5 GM/DL Hematocrit 27.2 % Mean Corpuscular Volume 109.7 FL Mean Corpuscular Hemoglobin 34.2 PG Mean Corpuscular Hemoglobin Concent 31.2 % Red Cell Distribution Width 24.0 % Platelet Count 159 TH/MM3 Mean Platelet Volume 10.8 FL Neutrophils (%) (Auto) 83.3 % Lymphocytes (%) (Auto) 6.9 % Monocytes (%) (Auto) 7.3 % Eosinophils (%) (Auto) 2.3 % Basophils (%) (Auto) 0.2 % Neutrophils # (Auto) 12.7 TH/MM3 Lymphocytes # (Auto) 1.1 TH/MM3 Monocytes # (Auto) 1.1 TH/MM3 Eosinophils # (Auto) 0.4 TH/MM3 Basophils # (Auto) 0.0 TH/MM3 CBC Comment DIFF FINAL Differential Comment Laboratory Tests Test 05/27/17 14:36 05/28/17 08:05 Blood Urea Nitrogen 20 MG/DL Creatinine 0.38 MG/DL Random Glucose 96 MG/DL Total Protein 6.2 GM/DL Albumin 3.0 GM/DL Calcium Level 8.7 MG/DL Magnesium Level 1.7 MG/DL Alkaline Phosphatase 104 U/L Aspartate Amino Transf (AST/SGOT) 49 U/L Alanine Aminotransferase (ALT/SGPT) 43 U/L Total Bilirubin 0.6 MG/DL Sodium Level 152 MEQ/L Potassium Level 3.8 MEQ/L Chloride Level 119 MEQ/L Carbon Dioxide Level 24.8 MEQ/L Anion Gap 8 MEQ/L Estimat Glomerular Filtration Rate 232 ML/MIN Lactic Acid Level 3.3 mmol/L Microbiology Date/Time Source Procedure Growth Status 05/27/17 10:00 Sputum Other Gram Stain Pending Received 05/27/17 10:00 Sputum Other Sputum Culture Pending Received 05/27/17 10:00 Bronchial Washings Right Lower Lobe Fungal Smear - Final MODERATE BUDDING YEAST WITH PSEUDOHYPHAE Resulted 05/27/17 10:00 Bronchial Washings Right Lower Lobe Fungal Culture Pending Resulted 05/27/17 10:00 Bronchial Washings Left Lower Lobe Fungal Smear - Final MODERATE BUDDING YEAST WITH PSEUDOHYPHAE Resulted 05/27/17 10:00 Bronchial Washings Left Lower Lobe Fungal Culture Pending Resulted 05/27/17 10:00 Bronchial Washings Right Lower Lobe Acid Fast Stain Pending Received 05/27/17 10:00 Bronchial Washings Right Lower Lobe Mycobacterial Culture Pending Received 05/27/17 10:00 Bronchial Washings Left Lower Lobe Acid Fast Stain Pending Received 05/27/17 10:00 Bronchial Washings Left Lower Lobe Mycobacterial Culture Pending Received 05/27/17 10:00 Bronchial Washings Right Lower Lobe Gram Stain - Final Resulted 05/27/17 10:00 Bronchial Washings Right Lower Lobe Bronchial Culture Pending Resulted 05/27/17 10:00 Bronchial Washings Left Lower Lobe Gram Stain - Final Resulted 05/27/17 10:00 Bronchial Washings Left Lower Lobe Bronchial Culture Pending Resulted Imaging Chest X-Ray 05/28/17 0000 Signed Impressions: Service Date/Time: Sunday, May 28, 2017 07:21 - CONCLUSION: 1. Stable ETT and right apical chest tube with no significant pneumothorax. Improving subcutaneous emphysema. 2. Worsening right upper lobe airspace disease. 3. Stable left basilar pleural-parenchymal disease. Ronaldo Howell MD Abdomen X-Ray 05/20/17 0600 Signed Impressions: Service Date/Time: Saturday, May 20, 2017 03:20 - CONCLUSION: 1. Dilatation of the transverse colon. Significant air filled small bowel is not seen. On the prior exam, the small bowel was prominent. 2. Hazy densities in the abdomen which may suggest ascites. 3. Left lower lobe consolidation or atelectasis. Olu Herrera MD Abdomen/Pelvis CT 05/12/17 0000 Signed Impressions: Service Date/Time: Friday, May 12, 2017 17:56 - CONCLUSION: 1. Left lower lobe collapse and lingular consolidation. Endobronchial soft tissue within the left lower lobe, Mass versus mucus plugging are differential diagnostic considerations. 2. Body wall edema and ascites. 3. Nonobstructing right renal calculus. 4. Colitis with abnormal bowel wall thickening involving the ascending colon, and diffuse small bowel dilatation characteristic of an ileus. Ray Finney MD Chest Ultrasound 05/08/17 0000 Signed Impressions: Service Date/Time: Monday, May 08, 2017 13:01 - CONCLUSION: 1. There is a small left pleural effusion with insufficient volume for thoracentesis at this time. Ronaldo Howell MD Abdomen Fluoroscopy 05/01/17 0000 Signed Impressions: Service Date/Time: Monday, May 01, 2017 13:13 - CONCLUSION: Uncomplicated nasogastric tube placement as above. Zain Kumar MD Lower Extremity Ultrasound 04/28/17 0000 Signed Impressions: Service Date/Time: Friday, April 28, 2017 16:47 - CONCLUSION: Negative exam with no evidence of deep venous thrombosis. Johnathon White MD Chest CT 04/28/17 0000 Signed Impressions: Service Date/Time: Friday, April 28, 2017 11:03 - CONCLUSION: 1. Small bilateral pleural effusions with atelectasis in both lower lobes. There is also a focal area of groundglass opacity in the lingula that is nonspecific but could represent an infectious or inflammatory process. 2. Moderate size hiatal hernia with dilated and fluid-filled esophagus suggesting gastroesophageal reflux. The nasogastric tube distal tip is in the distal esophagus and should ideally be advanced into the stomach. Olu Triana MD Head CT 04/27/17 1017 Signed Impressions: Service Date/Time: Thursday, April 27, 2017 11:00 - CONCLUSION: 1. No acute intracranial abnormality. 2. Complete opacification left maxillary sinus. Keagan Shipman MD Renal Ultrasound 04/27/17 0000 Signed Impressions: Service Date/Time: Thursday, April 27, 2017 23:50 - CONCLUSION: Negative renal sonogram. Rogerio Gunn MD Physical Exam GENERAL: Sedated, intubated SKIN: Warm and dry, no generalized rash HEAD: Atraumatic. Normocephalic. No temporal or scalp tenderness. EYES: Pupils equal round and reactive. [place] conjunctiva. No petechia or injection. No scleral icterus ENT: Nose without bleeding, purulent drainage or septal hematoma. Orally intubated NECK: Trach site has packing CARDIOVASCULAR: Regular rate and rhythm without murmurs. RESPIRATORY: Coarse breath sounds bilaterally, decreased at the bases, right pigtail chest tube in place GASTROINTESTINAL: Abdomen soft, slightly distended, no reaction to palpation. (+) BS, not guarding. PEG site ok MUSCULOSKELETAL: Extremities without clubbing, cyanosis. Edema improving NEUROLOGICAL: Sedated PSYCH: Unable to assess : Young catheter in place, urine looks clear IV line sites with no e.o infection. Assessment & Plan Remarks IMPRESSION Aspiration Pneumonia (vomiting due to Gaseous distention this am) s/p colonic decompression 05/12/17 and other times in this admission. - sputum C/S E coli Recurrent respiratory failure S/P arrest Ileus S/P decompression - PMC vs ischemic colitis on path report Pseudomembranous colitis (r/o cdiff) COPD exacerbation Alcoholism Cirrhosis of liver. Acute metabolic encephalopathy leukocytosis, still high, but slightly lower Respiratory failure, recurrent, due to a clogged trach, now intubated Right pneumothorax PLAN Change Rocephin to Cefepime Continue Flagyl IV (anaerobes and Cdiff coverage). Cdiff can be negative with use of barrier cream used in pericare. - end date ordered in [facility] - To get 14 days Follow bronch C/S Monitor progress For revision of his tracheostomy D/W Violet Tom MD May 28, 2017 09:08
[2017-05-28 09:20] LABS: CREATINE KINASE 49 U/L (39-308)
[2017-05-28] MEDS: NICOTINE 14 MG/24 HR PATCH T-DERMAL SCH (10:25)
[2017-05-28 10:28] LABS: LACTIC ACID GHOST NOT REPORTABLE
[2017-05-28] MEDS: CEFEPIME INJ 2,000 MG in SODIUM CHLORIDE 0.9% INJ 100 ML IV SCH ×2 (10:28→20:00)
[2017-05-28] MEDS: PANTOPRAZOLE SODIUM 40 MG VIAL IV PUSH SCH (10:29)
[2017-05-28] MEDS: CHLORHEXIDINE 0.12% (ORAL KIT) 15 ML CUP MT SCH ×2 (10:29→20:02)
[2017-05-28] MEDS: SODIUM CHLORIDE 0.9% FLUSH 10 ML FLUSH IV FLUSH SCH (10:30)
[2017-05-28] MEDS: methylPREDNISolone SOD SUCC 40 MG/1 ML VIAL IV PUSH SCH ×2 (10:45→20:02)
[2017-05-28 11:18] LABS: BLOOD, URINE NEG (NEG); COMMENT (UR) CULT NOT INDICATED; CULTURE IF INDICATED CULT NOT INDICATED; GLUCOSE,URINE NEG (NEG); HYALINE CAST, URINE 3 /lpf (RARE); KETONE, URINE NEG (NEG); NITRITE,URINE NEG (NEG); SQUAMOUS EPITHELIAL CELL URINE <1 /hpf (0-5); URINE COLOR YELLOW (YELLW/STRAW)
--- NOTE | 2017-05-28 12:41 | EKG ---
Date Performed: 05/28/2017 Time Performed: 07:55:26 PTAGE: 62 years EKG: Likely sinus tachycardia with frequent premature atrial contractions, but not exclude atria l fibrillation. Left axis deviation Inferior infarct - age undetermined Ant/septal and lateral ST-T c hanges may be due to myocardial Ischemia Low QRS voltages in limb leads When compared to previous tra cing, Sinus rhythm has been Replaced. Abnormal ECG PREVIOUS TRACING : 05/06/2017 10.11.42 DOCTOR: Gavin Osuna Interpretating Date/Time 05/28/2017 12:40:46
--- NOTE | 2017-05-28 15:23 | PD.PROCEDR ---
Procedure Note Procedure DX: Respiratory Failure (J96.01) OP: Flexible Bronchoscopy (43026) Procedure: Time out. Patient required reintubation throught mouth after trach tube was dislodged several days ago. Usual ICU monitoring in place, on mechanical ventilation. The scope was passed through the elbow side-port of the vent circuit.The tracheobronchial tree showed no inflammation and anatomical branching was normal. Mild purulent secretions were suction fro both lungs. The scope and orotracheal tube were then withdrawn to the level of the cricoid cartilage and used for guidance during the percutaneous tracheostomy procedure. After placement of the tracheostomy the scope was delivered through the new trach and confirmation of good position was made. Kole Rogers MD May 28, 2017 15:23
--- NOTE | 2017-05-28 15:30 | PD.PROCEDR ---
Procedure Note Procedure Percutaneous Dilation Tracheostomy Tube Placement Diagnosis: Acute on chronic respiratory failure Indications: Chronic respiratory failure with tracheostomy dislodgment. Need tracheostomy for chronic vent wean Anesthesia: Propofol IV Neuromuscular Blockade: Vecuronium IV Anesthesia was provided by the bedside RN Description of the Procedure: The patient was sedated and paralyzed. The patient was positioned in the supine position with a chest roll. The patient's neck was slightly extended. Landmarks were palpated and the anatomy of the anterior neck was deemed normal. A time out procedure was performed. The patient was placed on a volume control mode of ventilation, on 100% FiO2. The patient was prepped and draped sterilely. A bronchoscope was inserted into the endotracheal tube for endoscopic guidance (see separate bronchoscopy procedure note). The cricoid cartilage, thyroid tissue, and tracheal rings were palpated in the midline. Under direct bronchoscopic guidance, the cuff of the endotracheal tube was deflated and the endotracheal tube was retracted to a level above the level of the prior skin incision. At this point, a 15g introducer catheter was advanced midline easily and without resistance until the catheter was visualized in the lumen of the trachea. The needle was withdrawn leaving the catheter in place. A 0.052 in diameter J-shaped guidewire was advanced through the catheter into the lumen of the trachea, under direct bronchoscopic visualization. Using a modified Seldinger technique, a 14 Fr, 4.5 cm introducer dilator was used, followed by a [place] Percutaneous Tracheostomy Dilator, and finally a 28 Fr tracheostomy loading catheter with 8.0 Cuffed [place]iley tracheostomy tube. The loading catheter and guidewire were removed and the tracheostomy tube was confirmed in the lumen of the trachea with bronchoscopy, end-tidal CO2, and returning volumes on the ventilator. The tracheostomy was sewn to the skin with interrupted 2.0 Prolene sutures, and a tracheostomy tie was applied to the skin. There were no immediate complications. There was minimal EBL. A chest x-ray has been ordered. Inventory Analyst: Kole Rogers MD I personally performed the procedure. Gabriel Alvares MD May 28, 2017 15:30
[2017-05-28] MEDS: BUDESONIDE-FORMOTEROL 160/4.5 MCG INHALER INH SCH ×2 (17:29→19:31)
[2017-05-28] MEDS: MIDODRINE 5 MG TAB PO SCH ×2 (18:45→20:01)
[2017-05-28] MEDS: MELATONIN 5 MG TAB PO SCH (19:30)
[2017-05-28] MEDS: oxyCODONE HCL ORAL CONC 5 MG/0.25 ML SYRINGE PO PRN (20:00)
[2017-05-29] VITALS (9 sets, daily range): BP systolic 95–118; BP diastolic 53–79; PULSE 75–92; RESP 25; TEMP 97.2–99.5; O2SAT 100
[2017-05-29] MEDS: oxyCODONE HCL ORAL CONC 5 MG/0.25 ML SYRINGE PO PRN ×2 (00:47→05:52)
[2017-05-29] MEDS: RESP: ALBUTEROL 2.5 MG/IPRATROPIUM 0.5 MG NEB (SCH) NEB ×2 (04:01→08:37)
[2017-05-29 04:36] LABS: HEMATOCRIT 23.3 % (39.0-51.0); MEAN CELL VOLUME 105.7 FL (80.0-100.0); MEAN CORPUSCULAR HEMOGLOBIN 34.1 PG (27.0-34.0); MEAN CORPUSCULAR HGB CONC 32.2 % (32.0-36.0); PLATELET COUNT 149 TH/MM3 (150-450); RED BLOOD COUNT 2.21 MIL/MM3 (4.50-5.90); RED CELL DISTRIBUTION WIDTH 23.4 % (11.6-17.2); REVIEW FLAG FINAL; WHITE BLOOD COUNT 15.9 TH/MM3 (4.0-11.0)
[2017-05-29 05:10] LABS: POTASSIUM 4.3 MEQ/L (3.5-5.1)
[2017-05-29] MEDS: METOCLOPRAMIDE HCL 10 MG/2 ML VIAL IV PUSH SCH (05:23)
[2017-05-29] MEDS: ERYTHROMYCIN ETHYLSUCCINATE 200 MG/5 ML SUSP 100 ML BOTTLE PO SCH (05:23)
[2017-05-29] MEDS: ARTIFICIAL TEARS OPTH SOLN 15 ML BTL EACH EYE SCH (05:23)
[2017-05-29] MEDS: metroNIDAZOLE 500 MG TAB PO SCH (05:23)
[2017-05-29] MEDS: MIDODRINE 5 MG TAB PO SCH (05:23)
[2017-05-29] MEDS: FREE WATER G-TUBE SCH ×2 (06:00→11:17)
--- NOTE | 2017-05-29 06:24 | HHI.CCPN ---
Subjective Remarks/Hospital Course 61yM with h/o prior hepatic encephalopathy, etoh abuse, tobacco abuse, now admitted with weakness, fever, chills, worsening hypotension. called by hospitalist service overnight for clinical decline despite ivf resuscitation. Patient does complain of flank pain, but denies chest pain, abdominal pain. u/a +. started earlier on vanc/zosyn. has not voided. becoming worseningly agitated. unable to provide any additional information due to altered mental status. 04/28: Chart reviewed. Patient still quite agitated stating "I have to pee" patient has a Young catheter. Complaining of flank pain. Noted renal ultrasound negative. Currently on norepinephrine at 12 mg per minute. 04/29: Resting in bed in no acute distress. Currently on norepinephrine at 7 per minute for vasopressor support. Transfuse 2 units PRBC and 2 pack platelets overnight. Dilutional. Absolutely no signs of active bleeding. 04/30 Patient is sedated with Fentanyl and intubated. On Levophed 5 mics. Afebrile. For EGD today. 05/01 No events overnight. Sedated and intubated. On Levophed 4 mics. s/p EGD yesterday with shoed esophagitis, gastritis, food impaction in distal esophagus removed. 05/02: Afebrile. Off all vasopressors. NG tube advanced by IR yesterday. Feeding to be initiated today. Currently on fentanyl drip 05/03: Remains intubated sedated and not following commands remains on fentanyl infusion. Attempt CPAP trial if patient wakeful enough. Urine output minimal only 300 mL in 24 hours. Will give albumin and Bumex 05/04 Patient is sedated with Fentanyl and intubated. Afebrile. 05/05 Patient was self extubated last night. For possible decompressive colonoscopy today. Afebrile. 05/06 Patient is on 3L oxygen for decompressive colonoscopy today. On Precedex drip for agitation. CT abdomen/pelvis last night showed development of gaseous distention of the right and transverse colon with abrupt change in luminal dimension at the splenic flexure. There is a rectal tube in place and cannot differentiate between a focal obstruction/stricture versus decompression from the rectal tube. 05/07 Patient s/p decompressive colonoscopy last night KUB this morning showed decreased colonic distention. On 4L oxygen. 05/08 Patient was unresponsive on BIPAP this morning and was in resp distress he was subsequently intubated and placed on mechanical ventilation. CXR post intubation showed complete opacification of left hemithorax likely 2nd mucous plug 05/09 Patient is sedated with Fentanyl and intubated. Afebrile. 05/10 Patient remains sedated and intubated. Afebrile. Tolerating tube feeds 05/11: Tolerated PSV trials 3 hours today. Not tolerating tube feeding currently. KUB pending. Positive BM. Decreased urine output noted. 05/12: Lasted 1 hour on PSV trials today. Currently vomiting will be decompressed from above and below per GI today. Afebrile. Central line placed due to persistent hypotension 05/13: Permission from mother for bronchoscopy today for diagnosis left lower lobe on CAT scan of min/pelvis yesterday. Sample sent. Currently on linezolid , cefepime and Flagyl per infectious disease. 05/14: Patient remains intubated sedated, on sedation hold do not follow commands , but moving extremities. Initially intubated 04/28, self extubated 05/05, Re intubated for mucus plugging, AMS on 05/07 night. Combined vent day , mental status will not permit extubation. Copious yellow ETT secretions. 05/15: Gets agitated on CPAP. But intermittently follows commands. Good oxygen saturation. Chest x-ray shows improved aeration. Moderate secretions from ET tube but good cough. Will proceed with extubation. Remains full code 05/16: Patient was extubated yesterday but failed in about 1 hour due to stridor and tachypnea. Today off sedation mentation seems to be improved, tolerates CPAP with high settings but has bilateral crackles and coarse rhonchi. Family (son and daughter) starting in from [place]. Will be here tomorrow 05/17/17 and request the patient to be left intubated until they get here 05/17: Patient is more awake alert and appropriate in communicating even though on low-dose propofol and intubated. Waiting for family to arrive from [place] tonight. Possible weaning to extubation tomorrow 05/18: Awake alert following command on vent. Palliative care is meeting with family today. Once decision re: goals of care are made, most likely proceed with extubation 05/19: Patient was extubated yesterday and there myself under palliative care nurse practitioner Adalgisa Ellington had a detailed discussion with the patient. After talking to the family patient decided he wants to be full code and wants a tracheostomy and PEG tube done since this is his fourth reintubation. Currently intubated sedated tracheostomy today 05/20: Status post tracheostomy yesterday 05/19/17. Based on CPAP tolerating well now. We'll attempt T piece today. Discontinue Versed use propofol as needed. Labs pending 05/21: Remains intubated sedated. Tolerated CPAP 3 hours yesterday. Remains significantly fluid positive at least 2 KG since admission. Significant anasarca. Start on Bumex infusion. Chest x-ray shows fluid overload/pulmonary edema 05/22: Excellent diuresis with Bumex gtt. 6.8L in 24 hours and wt down by 5 kg, still kg up from admission weight. Tolerating TP. Possible PEG today 05/23: Currently patient is on TPs tolerating well. Attempts to talk. Up to stretcher chair today. Urine output more than 10 L on Bumex drip. Change to scheduled Bumex and one dose of Diamox 05/24: Tolerated TP all day, CPAP at night. >5L UO in 24 hours. We'll stop scheduled Bumex now, weight is down to admission weight. Use Bumex as needed 05/25: Patient able to talk with [place] valve. BUN/cr stable. WBC starting to trend down, Solu-Medrol reduced. CCM RECONSULT NOTE: Emergency re consult for trach malfunction, with hypoxia. According to the RT report, patient was hypoxic on the floor and trach was obstructed and partially dislodged. Respiratory therapist removed the inner cannula which was obstructed and tried to place a new inner cannula but the syed on trach was broke. So respiratory therapist removed the existing perc trach and placed a new cuffed fenestrated trach (only one available on floor at that time). Passage was difficult and he was not able to pass a suction catheter and a Halicat was called and patient was emergently moved to [facility], Dr. Montes accompanied the patient. When patient was breathing spontaneously he had bilateral air entry, I called for emergent bronchoscopy. Patient had severe respiratory distress and mechanical ventilation was attempted. We could not get sufficient volume and, patient started developing significant subcutaneous emphysema involving the neck indicating new tracheostomy false passage. I disconnected the patient performed a emergency orotracheal intubation, once the tube placement was confirmed Dr. Montes pulled out the existing fenestrated tracheostomy. ET tube was further advanced and again confirmed with end-tidal CO2 monitor. Suction catheter now was easily passed and copious amounts of secretions were suctioned out. I will perform a bronchoscopy to confirm placement 05/28: patient had witnessed V. Fib arrest around 06:15am during bath. CPR immediately started (see separate documentation for details). ROSC obtained after DC cardioversion x 1. had discussion with son immediately after ROSC and son elects to make the patient DNR so that if we lose perfusing rhythm, we will let him . Otherwise continue aggressive medical therapy. 05/29: clinically improving. following commands. back down to 35% fio2. Cr uptrended to 1.5 from 0.3 overnight, now with JENNY but likely early ATN and appears euvolemic. off all vasopressors. trach replaced yesterday. clinically stable. needs daily evaluations and continued vent weaning. not stable enough for SNF. Needs LTAC level care for daily management of his hypernatremia, renal function, blood pressure. Objective Vital Signs Date Time Temp Pulse Resp B/P (MAP) Pulse Ox O2 Delivery O2 Flow Rate FiO2 05/29/17 04:12 100 35 05/29/17 04:00 97.6 82 25 95/61 (72) 103/56 (72) 05/27/17 07:48 Trach Collar 05/26/17 20:01 5.00 Result Diagram: 05/29/17 0345 05/29/17 0345 Other Results Laboratory Tests Test 05/28/17 06:55 Blood Gas Puncture Site ART LINE Blood Gas Patient Temperature 98.6 Blood Gas HCO3 22 mmol/L (22-26) Blood Gas Base Excess -2.3 mmol/L (-2-2) Blood Gas Oxygen Saturation 96 % (90-100) Arterial Blood pH 7.38 (7.380-7.420) Arterial Blood Partial Pressure CO2 39 mmHg (38-42) Arterial Blood Partial Pressure O2 140 mmHg (61-120) Arterial Blood Oxygen Content 12.3 Vol % (12.0-20.0) Arterial Blood Carboxyhemoglobin 1.6 % (0-4) Arterial Blood Methemoglobin 1.0 % (0-2) Blood Gas Hemoglobin 8.9 G/DL (12.0-16.0) Oxygen Delivery Device VENTILATOR Blood Gas Ventilator Setting PRVC/24/550/+5 Blood Gas Inspired Oxygen 40 % Imaging Last Impressions Chest X-Ray 05/13/17 Signed Impressions: Service Date/Time: Saturday, May 13, 2017 13:22 - CONCLUSION: Stable chest appearance. Nasogastric tube in the distal esophagus Olu Rodriguez MD Abdomen/Pelvis CT 05/12/17 0000 Signed Impressions: Service Date/Time: Friday, May 12, 2017 17:56 - CONCLUSION: 1. Left lower lobe collapse and lingular consolidation. Endobronchial soft tissue within the left lower lobe, Mass versus mucus plugging are differential diagnostic considerations. 2. Body wall edema and ascites. 3. Nonobstructing right renal calculus. 4. Colitis with abnormal bowel wall thickening involving the ascending colon, and diffuse small bowel dilatation characteristic of an ileus. Ray Finney MD Abdomen X-Ray 05/12/17 Signed Impressions: Service Date/Time: Friday, May 12, 2017 06:36 - CONCLUSION: 1. Reinsertion of the rectal tube which is coiled within the rectal vault. It may be kinked and not draining well. 2. Persistent gaseous distention of the colon although a slight decrease in the volume of gas. 3. New mildly dilated gas-filled loops of small bowel. Rogerio Harris Jr., MD Chest Ultrasound 05/08/17 Signed Impressions: Service Date/Time: Monday, May 08, 2017 13:01 - CONCLUSION: 1. There is a small left pleural effusion with insufficient volume for thoracentesis at this time. Ronaldo Howell MD Abdomen Fluoroscopy 05/01/17 0000 Signed Impressions: Service Date/Time: Monday, May 01, 2017 13:13 - CONCLUSION: Uncomplicated nasogastric tube placement as above. Zain Kumar MD Lower Extremity Ultrasound 04/28/17 0000 Signed Impressions: Service Date/Time: Friday, April 28, 2017 16:47 - CONCLUSION: Negative exam with no evidence of deep venous thrombosis. Johnathon White MD Chest CT 04/28/17 0000 Signed Impressions: Service Date/Time: Friday, April 28, 2017 11:03 - CONCLUSION: 1. Small bilateral pleural effusions with atelectasis in both lower lobes. There is also a focal area of groundglass opacity in the lingula that is nonspecific but could represent an infectious or inflammatory process. 2. Moderate size hiatal hernia with dilated and fluid-filled esophagus suggesting gastroesophageal reflux. The nasogastric tube distal tip is in the distal esophagus and should ideally be advanced into the stomach. Olu Triana MD Head CT 04/27/17 1017 Signed Impressions: Service Date/Time: Thursday, April 27, 2017 11:00 - CONCLUSION: 1. No acute intracranial abnormality. 2. Complete opacification left maxillary sinus. Keagan Shipman MD Renal Ultrasound 04/27/17 0000 Signed Impressions: Service Date/Time: Thursday, April 27, 2017 23:50 - CONCLUSION: Negative renal sonogram. Rogerio Gunn MD Objective Remarks GENERAL: elderly-appearing male, lying in bed, trached SKIN: Warm and dry. Skin wrinkled HEAD: Normocephalic. EYES: No scleral icterus. ENT: orotracheally intubated. NECK: no jvd. trach in place. CARDIOVASCULAR: normal rate, regular rhythm. RESPIRATORY: Breath sounds diminished bilaterally. peep 10, fio2 35%. GASTROINTESTINAL: No guarding. No rigidity. MSK: Skin appears dry and wrinkled NEURO: RASS -2. follows commands. Date of Removal: May 26, 2017 A/P Assessment and Plan Assessment: 62yM with [id number]-npeaken respiratory failure, fresh trach dislodgement, now clinically improving. unable to wean off mechanical ventilation. will need long-term acute care facility. has ongoing daily needs for sodium monitoring and monitoring of renal function. LTAC appropriate and too high level for SNF level care. Neuro/Psych: Acute metabolic encephalopathy Alcohol dependence Hypoxic Ischemic Encephalopathy hold sedating meds until neuro exam improves. CT brain 04/27 revealed left maxillary sinusitis otherwise no acute intra- cranial findings Patient does have a history of EtOH withdrawal seizures. Seizure precautions. Thiamine, folate and multivitamin daily CV: post-Ventricular Fibrillation cardiac arrest 05/28 Cardiogenic shock- resolved. off all vasopressors. Monitor HR and BP keep MAP>65mmHg Bumex DCd 05/24/17 Resp: Attempted trach exchange by RT with false passage Pneumothorax pneumomediastinum and subcutaneous emphysema secondary to above Acute hypoxemic respiratory failure s/p Perc Trach 05/19/17 COPD exacerbation Ongoing tobaccoism Orotracheally intubated and tracheostomy removed, site packed. replacement of tracheostomy 05/28. s/p Perc Trach 05/19/17. (Skyla Raines/Ken). Patient wanted full code including tracheostomy and PEG tube placement. Continue solumedrol to 40 mg qd. inhaled budesonide. Albuterol/ipratropium aerosols every 6 hours and albuterol aerosols every 2 hours. PRN GI: Hyperammonemia Colonic Ileus, small bowel ileus - resolving. Hypoalbuminemia- moderate protein calorie malnutrition Hepatic steatosis Hypernatremia restart tube feeds. Previously Ileus improving clinically and on KUB, tube feeds restarted by GI. Having bowel movements PEG 05/22, tolerating tube feeds s/p decompressive colonoscopy 05/06: Stool throughout the colon, Decompression colon tube was placed s/p EGD 04/30: Esophagitis, gastritis, food impaction in distal esophagus removed. Pantoprazole for GI prophylaxis. Docusate sodium/senna 1 tablet twice a day for bowel regimen. Continue Reglan start free water 200 mL q6h. : Right kidney nonobstructing stone 3 mm Monitor renal function, I/O's, electrolytes replacement per protocol. remove Young again and place condom cath. Endo: Hypokalemia hypomagnesemia Sliding-scale insulin to maintain euglycemia with Accu-Cheks every 6 hours with low regimen with Novolin R Electrolyte Replacement per protocol check phos level. Heme: Leukocytosis - resolving. Macrocytic anemia Patient was transfused 2 pack platelets and 2 PRBC 04/28. Follow CBC daily. Monitor trends. ID: Possible C. difficile colitis Aspiration pneumonia, E Coli in sputum Per infectious disease on ceftriaxone and metronidazole. Linezolid DCd 05/16/17 s/p Zosyn 04/27- 05/06 BAL results 05/09 and 05/13- NG. Sputum E Coli-S to cefepime Blood cultures 2 -04/27 -no growth Urine culture - 04/27 - NG. Sputum 04/28- normal resp andrea Urine pneumococcal and Legionella antigens negative MSK: PT/OTevaluate and treat, when more stable Access -Use PIV Prophylaxis - GI - pantoprazole - DVT - SCD/ Heparin SQ-Hold to complete procedures dispo: ready for LTAC. Gabriel Alvares MD May 29, 2017 06:24
[2017-05-29] MEDS: CHLORHEXIDINE 0.12% (ORAL KIT) 15 ML CUP MT SCH (08:26)
[2017-05-29] MEDS: methylPREDNISolone SOD SUCC 40 MG/1 ML VIAL IV PUSH SCH (08:27)
[2017-05-29] MEDS: SODIUM CHLORIDE 0.9% FLUSH 10 ML FLUSH IV FLUSH SCH (08:27)
[2017-05-29] MEDS: PANTOPRAZOLE SODIUM 40 MG VIAL IV PUSH SCH (08:27)
[2017-05-29] MEDS: NICOTINE 14 MG/24 HR PATCH T-DERMAL SCH (08:28)
[2017-05-29] MEDS: LACTULOSE SYRUP 20 GM/30 ML CUP PO SCH (08:28)
[2017-05-29] MEDS: POTASSIUM CHLORIDE 25 MEQ EFFERVESCENT TAB PO SCH (08:29)
[2017-05-29] MEDS: RIFAXIMIN 550 MG TAB PO SCH (08:29)
[2017-05-29] MEDS: MULTIVITAMIN TAB PO SCH (08:29)
[2017-05-29] MEDS: REMOVE OLD PATCH T-DERMAL SCH (08:29)
[2017-05-29] MEDS: DOCUSATE SODIUM 50 MG/SENNA 8.6 MG TAB PO SCH (08:29)
[2017-05-29] MEDS: FOLIC ACID 1 MG TAB PO SCH (08:29)
[2017-05-29] MEDS: GABAPENTIN 300 MG CAP PO SCH ×2 (08:30→12:27)
[2017-05-29] MEDS: THIAMINE HCL 100 MG TAB PO SCH (08:30)
[2017-05-29] MEDS: RESP: BUDESONIDE 0.5 MG/2 ML NEB NEB SCH (08:37)
[2017-05-29] MEDS ORDERED: oxyCODONE HCL ORAL CONC 5 MG/0.25 ML SYRINGE PO PRN (09:15)
--- NOTE | 2017-05-29 10:56 | HHI.IDPN ---
Subjective Subjective Remarks Chart reviewed, case margarita Greenberg who took care of him in interim. is a 61y CM with PMHx of ETOH abuse, prior hepatic encephalopathy, chronic alcoholism, ETOH withdrawal seizures who presented with weakness, dizziness, and having a fall and not being able to get up, per EMR admitted . Since admission, has had complicated hospital course, has been reintubated at least 4x, and subsequently underwent tracheostomy 05/19. Also has had problems with abdominal distension, N/V, has had at least 2 decompressive colonoscopies, last one showing findings suggestive of either ischemic colitis or PMC. Notes reviewed D/W RN Patient coded yday - vfib arrest. Neva.kyrie Hughes thinks this is hypoxia related. Trach changed. On levophed FiO2 at 35% Low grade temps and mild WBC elevation ? secondary to recent code and aspiration event. cultures pending. Opens eyes, follows commands. Secretions thick yellow. Antibiotics Cefepime IV Flagyl IV I attest I obtained, reviewed or updated the home meds and current meds (for name, dose, freq and route). Current Medications Medications (Trade) Dose Ordered Sig/Brenda Route Start Time Stop Time Status Last Admin (Neurontin) 300 mg TID PO 04/27/17 13:00 Future hold 05/27/17 17:29 (Tylenol) 650 mg Q4H PRN PO 04/27/17 12:30 05/21/17 03:20 (Compazine Supp) 25 mg Q12H PRN RECTAL 04/27/17 12:30 (Narcan Inj) 0.4 mg UNSCH PRN IV PUSH 04/27/17 12:30 (Beena-Colace) 1 tab BID PO 04/27/17 21:00 Future hold 05/27/17 21:00 (Milk Of Magnesia Liq) 30 ml Q12H PRN PO 04/27/17 12:30 (Senokot) 17.2 mg Q12H PRN PO 04/27/17 12:30 05/27/17 21:11 (Dulcolax Supp) 10 mg DAILY PRN RECTAL 04/27/17 12:30 (Xifaxan) 550 mg BID PO 04/27/17 21:00 05/27/17 21:11 (Catapres) 0.1 mg Q6H PRN PO 04/27/17 12:30 (Habitrol 14 Mg Patch.24 Hr) 1 patch DAILY T-DERMAL 04/28/17 09:00 05/27/17 12:54 Miscellaneous Information 1 DAILY T-DERMAL 04/28/17 09:00 05/27/17 09:00 Miscellaneous Information Patient in critical care unit? Ass... Q361D .XX 04/27/17 17:30 (Peridex 0.12% Liq) 15 ml BID@08,20 MT 04/28/17 20:00 05/27/17 21:10 (Tears Naturale Opth Soln) 1 drop Q8HR EACH EYE 04/28/17 14:00 05/28/17 06:05 (Protonix Inj) 40 mg DAILY IV PUSH 04/28/17 09:30 05/27/17 12:54 (NS Flush) DAILY IVF 04/29/17 15:45 05/27/17 12:37 (NS Flush) UNSCH PRN IVF 04/29/17 15:45 05/17/17 08:12 (Vitamin B1) 100 mg DAILY PO 04/30/17 09:15 05/26/17 08:59 (Theragran) 1 tab DAILY PO 04/30/17 09:15 05/26/17 09:01 (Folate) 1 mg DAILY PO 04/30/17 09:15 05/26/17 08:59 (Heparin Inj) 5,000 units Q12HR SQ 05/08/17 21:00 Future Hold 05/18/17 09:48 (Albuterol Neb) 2.5 mg Q2HR NEB PRN NEB 05/11/17 13:45 (Reglan Inj) 10 mg Q8HR IV PUSH 05/12/17 14:00 05/28/17 06:05 (NS Flush) DAILY IV FLUSH 05/13/17 09:00 05/27/17 12:33 (NS Flush) UNSCH PRN IV FLUSH 05/12/17 14:30 05/20/17 13:12 (Brethine Inj) 1 mg UNSCH PRN SQ 05/12/17 14:30 (Symbicort 160-4.5 Inh) 2 puff Q12H INH 05/18/17 18:00 05/26/17 18:07 (Cathflo Activase Inj) 2 mg Q2H PRN INTRACATH 05/19/17 21:45 05/19/17 22:09 (Lactulose Liq) 30 ml BID PO 05/20/17 21:00 05/27/17 21:00 (Ees 200 Mg/5 ml Liq) 100 mg Q8HR PO 05/20/17 14:00 05/28/17 06:05 (K-Lyte Cl Eff) 25 meq Q12H PO 05/21/17 09:00 05/27/17 21:11 (Pulmicort Respule Neb) 0.5 mg Q12HR NEB NEB 05/21/17 08:00 05/27/17 19:54 Ceftriaxone Sodium 2000 mg/ Sodium Chloride 100 ml @ 200 mls/hr Q24H IV 05/21/17 10:00 05/28/17 09:59 05/27/17 11:14 (Flagyl) 500 mg Q8HR PO 05/23/17 14:00 06/05/17 12:00 05/28/17 06:05 (Melatonin) 5 mg HS PO 05/24/17 21:15 05/26/17 21:52 (ZyPREXA ZYDIS ODT) 5 mg Q24H PRN PO 05/24/17 23:00 (Haldol Inj) 5 mg Q4H PRN IV 05/24/17 21:15 05/26/17 21:52 (Peridex 0.12% Liq) 15 ml BID@08,20 MT 05/27/17 20:00 Propofol 100 ml @ 2.271 mls/ hr TITRATE PRN IV 05/27/17 10:45 05/28/17 02:15 (Duoneb Neb) 1 ampule Q6HR NEB NEB 05/27/17 16:00 05/28/17 03:30 (SoluMEDROL INJ) 40 mg BID@0800,2000 IV PUSH 05/27/17 20:00 05/27/17 20:00 Fentanyl Citrate 250 ml @ 5 mls/hr TITRATE PRN IV 05/28/17 07:45 05/28/17 07:58 Norepinephrine Bitartrate 250 ml @ 7.5 mls/hr TITRATE PRN IV 05/28/17 07:45 Lines Line sites with no e.o infection Past Medical History COPD and tobacco abuse Alcohol abuse History of alcohol withdrawal seizures Tonsillectomy Allergies: Coded Allergies: No Known Allergies (Verified Allergy, Unknown, 04/27/17) Uncoded Allergies: STEROIDS (Allergy, Unknown, 07/13/14) Objective . Vital Signs Date Time Temp Pulse Resp B/P (MAP) Pulse Ox O2 Delivery O2 Flow Rate FiO2 05/29/17 10:00 80 05/29/17 08:00 99.5 75 25 99/75 (83) 100 116/61 (79) 05/29/17 08:00 92 05/29/17 08:00 35 05/29/17 07:57 100 35 05/29/17 06:00 90 97/53 (68) 05/29/17 04:12 100 35 05/29/17 04:00 45 05/29/17 04:00 97.6 82 25 95/61 (72) 100 103/56 (72) 05/29/17 00:00 97.2 90 25 107/73 (84) 100 111/61 (78) 05/29/17 00:00 45 05/28/17 23:40 99 45 05/28/17 22:00 45 05/28/17 20:00 45 05/28/17 20:00 97.9 91 25 104/74 (84) 100 122/73 (89) 05/28/17 19:53 100 45 05/28/17 18:04 102 114/69 05/28/17 18:00 101 114/69 (84) 05/28/17 18:00 101 05/28/17 17:30 104 110/67 05/28/17 17:02 106 110/67 05/28/17 16:52 108 113/66 05/28/17 16:39 109 108/62 05/28/17 16:00 99 108/74 (85) 131/77 (95) 05/28/17 16:00 45 05/28/17 16:00 100.3 99 25 108/74 (85) 100 131/77 (95) 05/28/17 16:00 99 05/28/17 15:40 100 45 05/28/17 15:00 96 22 89/52 (64) 100 05/28/17 14:50 100 100 05/28/17 14:00 106 05/28/17 14:00 106 25 126/77 (93) 100 05/28/17 13:03 124/75 05/28/17 13:00 104 25 124/75 (91) 100 05/28/17 12:00 109 86/63 (71) 107/63 (78) 05/28/17 12:00 109 05/28/17 12:00 100.2 109 25 86/63 (71) 100 111/66 (81) 05/28/17 12:00 100 05/28/17 11:00 118 25 . Laboratory Tests Test 05/27/17 14:36 05/29/17 03:45 White Blood Count 15.3 TH/MM3 15.9 TH/MM3 Red Blood Count 2.48 MIL/MM3 2.21 MIL/MM3 Hemoglobin 8.5 GM/DL 7.5 GM/DL Hematocrit 27.2 % 23.3 % Mean Corpuscular Volume 109.7 FL 105.7 FL Mean Corpuscular Hemoglobin 34.2 PG 34.1 PG Mean Corpuscular Hemoglobin Concent 31.2 % 32.2 % Red Cell Distribution Width 24.0 % 23.4 % Platelet Count 159 TH/MM3 149 TH/MM3 Mean Platelet Volume 10.8 FL 11.0 FL Neutrophils (%) (Auto) 83.3 % Lymphocytes (%) (Auto) 6.9 % Monocytes (%) (Auto) 7.3 % Eosinophils (%) (Auto) 2.3 % Basophils (%) (Auto) 0.2 % Neutrophils # (Auto) 12.7 TH/MM3 Lymphocytes # (Auto) 1.1 TH/MM3 Monocytes # (Auto) 1.1 TH/MM3 Eosinophils # (Auto) 0.4 TH/MM3 Basophils # (Auto) 0.0 TH/MM3 CBC Comment DIFF FINAL Differential Comment Laboratory Tests Test 05/27/17 14:36 05/28/17 08:05 05/28/17 12:55 05/28/17 16:22 Blood Urea Nitrogen 20 MG/DL Creatinine 0.38 MG/DL Random Glucose 96 MG/DL Total Protein 6.2 GM/DL Albumin 3.0 GM/DL Calcium Level 8.7 MG/DL Magnesium Level 1.7 MG/DL Alkaline Phosphatase 104 U/L Aspartate Amino Transf (AST/SGOT) 49 U/L Alanine Aminotransferase (ALT/SGPT) 43 U/L Total Bilirubin 0.6 MG/DL Sodium Level 152 MEQ/L Potassium Level 3.8 MEQ/L Chloride Level 119 MEQ/L Carbon Dioxide Level 24.8 MEQ/L Anion Gap 8 MEQ/L Estimat Glomerular Filtration Rate 232 ML/MIN Lactic Acid Level 3.3 mmol/L 1.3 mmol/L 1.6 mmol/L Phosphorus Level 4.8 MG/DL Total Creatine Kinase 49 U/L Troponin I 0.22 NG/ML 0.25 NG/ML Test 05/28/17 22:47 05/29/17 01:37 05/29/17 03:45 Troponin I 0.19 NG/ML 0.16 NG/ML Blood Urea Nitrogen 46 MG/DL Creatinine 1.57 MG/DL Random Glucose 119 MG/DL Calcium Level 8.5 MG/DL Sodium Level 153 MEQ/L Potassium Level 4.3 MEQ/L Chloride Level 119 MEQ/L Carbon Dioxide Level 24.0 MEQ/L Anion Gap 10 MEQ/L Estimat Glomerular Filtration Rate 45 ML/MIN Microbiology Date/Time Source Procedure Growth Status 05/27/17 10:00 Sputum Other Gram Stain - Final Resulted 05/27/17 10:00 Sputum Other Sputum Culture Pending Resulted 05/27/17 10:00 Bronchial Washings Right Lower Lobe Fungal Smear - Final MODERATE BUDDING YEAST WITH PSEUDOHYPHAE Resulted 05/27/17 10:00 Bronchial Washings Right Lower Lobe Fungal Culture Pending Resulted 05/27/17 10:00 Bronchial Washings Left Lower Lobe Fungal Smear - Final MODERATE BUDDING YEAST WITH PSEUDOHYPHAE Resulted 05/27/17 10:00 Bronchial Washings Left Lower Lobe Fungal Culture Pending Resulted 05/27/17 10:00 Bronchial Washings Right Lower Lobe Acid Fast Stain Pending Received 05/27/17 10:00 Bronchial Washings Right Lower Lobe Mycobacterial Culture Pending Received 05/27/17 10:00 Bronchial Washings Left Lower Lobe Acid Fast Stain Pending Received 05/27/17 10:00 Bronchial Washings Left Lower Lobe Mycobacterial Culture Pending Received 05/27/17 10:00 Bronchial Washings Right Lower Lobe Gram Stain - Final Resulted 05/27/17 10:00 Bronchial Washings Right Lower Lobe Bronchial Culture - Preliminary HEAVY GROWTH NORMAL RESPIRATORY JOSE... Resulted 05/27/17 10:00 Bronchial Washings Left Lower Lobe Gram Stain - Final Resulted 05/27/17 10:00 Bronchial Washings Left Lower Lobe Bronchial Culture - Preliminary HEAVY GROWTH NORMAL RESPIRATORY JOSE... Resulted Imaging Chest X-Ray 05/28/17 0000 Signed Impressions: Service Date/Time: Sunday, May 28, 2017 07:21 - CONCLUSION: 1. Stable ETT and right apical chest tube with no significant pneumothorax. Improving subcutaneous emphysema. 2. Worsening right upper lobe airspace disease. 3. Stable left basilar pleural-parenchymal disease. Ronaldo Howell MD Abdomen X-Ray 05/20/17 0600 Signed Impressions: Service Date/Time: Saturday, May 20, 2017 03:20 - CONCLUSION: 1. Dilatation of the transverse colon. Significant air filled small bowel is not seen. On the prior exam, the small bowel was prominent. 2. Hazy densities in the abdomen which may suggest ascites. 3. Left lower lobe consolidation or atelectasis. Olu Herrera MD Abdomen/Pelvis CT 05/12/17 0000 Signed Impressions: Service Date/Time: Friday, May 12, 2017 17:56 - CONCLUSION: 1. Left lower lobe collapse and lingular consolidation. Endobronchial soft tissue within the left lower lobe, Mass versus mucus plugging are differential diagnostic considerations. 2. Body wall edema and ascites. 3. Nonobstructing right renal calculus. 4. Colitis with abnormal bowel wall thickening involving the ascending colon, and diffuse small bowel dilatation characteristic of an ileus. Ray Finney MD Chest Ultrasound 05/08/17 0000 Signed Impressions: Service Date/Time: Monday, May 08, 2017 13:01 - CONCLUSION: 1. There is a small left pleural effusion with insufficient volume for thoracentesis at this time. Ronaldo Howell MD Abdomen Fluoroscopy 05/01/17 0000 Signed Impressions: Service Date/Time: Monday, May 01, 2017 13:13 - CONCLUSION: Uncomplicated nasogastric tube placement as above. Zain Kumar MD Lower Extremity Ultrasound 04/28/17 0000 Signed Impressions: Service Date/Time: Friday, April 28, 2017 16:47 - CONCLUSION: Negative exam with no evidence of deep venous thrombosis. Johnathon White MD Chest CT 04/28/17 0000 Signed Impressions: Service Date/Time: Friday, April 28, 2017 11:03 - CONCLUSION: 1. Small bilateral pleural effusions with atelectasis in both lower lobes. There is also a focal area of groundglass opacity in the lingula that is nonspecific but could represent an infectious or inflammatory process. 2. Moderate size hiatal hernia with dilated and fluid-filled esophagus suggesting gastroesophageal reflux. The nasogastric tube distal tip is in the distal esophagus and should ideally be advanced into the stomach. Olu Triana MD Head CT 04/27/17 1017 Signed Impressions: Service Date/Time: Thursday, April 27, 2017 11:00 - CONCLUSION: 1. No acute intracranial abnormality. 2. Complete opacification left maxillary sinus. Keagan Shipman MD Renal Ultrasound 04/27/17 0000 Signed Impressions: Service Date/Time: Thursday, April 27, 2017 23:50 - CONCLUSION: Negative renal sonogram. Rogerio Gunn MD Physical Exam GENERAL: Alert, gets restless. SKIN: Warm and dry, no generalized rash HEAD: Atraumatic. Normocephalic. No temporal or scalp tenderness. EYES: Pupils equal round and reactive. [place] conjunctiva. No petechia or injection. No scleral icterus ENT: Nose without bleeding, purulent drainage or septal hematoma. Orally intubated NECK: Trach site with some erythema. CARDIOVASCULAR: Regular rate and rhythm without murmurs. RESPIRATORY: Coarse breath sounds bilaterally, decreased at the bases, right pigtail chest tube in place GASTROINTESTINAL: Abdomen soft, slightly distended, no reaction to palpation. (+) BS, not guarding. PEG site ok MUSCULOSKELETAL: Extremities without clubbing, cyanosis. Edema improving NEUROLOGICAL: Sedated PSYCH: Unable to assess : Young catheter in place, urine looks clear IV line sites with no e.o infection. Assessment & Plan Remarks IMPRESSION Aspiration Pneumonia (vomiting due to Gaseous distention this am) s/p colonic decompression 05/12/17 and other times in this admission. - sputum C/S E coli Recurrent respiratory failure S/P arrest Ileus S/P decompression - PMC vs ischemic colitis on path report Pseudomembranous colitis (r/o cdiff) COPD exacerbation Alcoholism Cirrhosis of liver. Acute metabolic encephalopathy leukocytosis, still high, but slightly lower Respiratory failure, recurrent, due to a clogged trach, now intubated Right pneumothorax PLAN Continue Cefepime IV for now. Cultures need to be followed by LTAC. Recommend ID consult at LTAC. Margarita Graciae to help ensure the cultures are followed and ABX adjusted and deescalated as needed by ID at LTAC. Continue Flagyl oral (anaerobes and Cdiff coverage). Cdiff can be negative with use of barrier cream used in pericare. - end date ordered in [facility] - To get 14 days DC Femoral Central line. thinks pt will be accepted at LTAC with a PIV. Follow bronch C/S Monitor progress D/W RN Will sign off please call back if any change in clinical condition or questions. Aleja Laboy MD May 29, 2017 10:56
[2017-05-29] MEDS: CEFEPIME INJ 2,000 MG in SODIUM CHLORIDE 0.9% INJ 100 ML IV SCH (11:17)
--- NOTE | 2017-05-29 12:24 | HHI.DS ---
Discharge Summary Admission Date Apr 27, 2017 at 12:27 Admitting Diagnosis general weakness/hypokalemia/hypomagnesemia (1) Acute sinusitis ICD Code: J01.90 - Acute sinusitis, unspecified Status: Acute (2) Hypokalemia ICD Code: E87.6 - Hypokalemia Status: Acute (3) Hypomagnesemia ICD Code: E83.42 - Hypomagnesemia Status: Acute (4) UTI (urinary tract infection) ICD Code: N39.0 - Urinary tract infection, site not specified Status: Acute (5) Chronic alcoholism ICD Code: F10.20 - Alcohol dependence, uncomplicated Status: Acute (6) Dizziness ICD Code: R42 - Dizziness and giddiness Status: Acute (7) Tobacco abuse ICD Code: Z72.0 - Tobacco use (8) Alcohol abuse ICD Code: F10.10 - Alcohol abuse, uncomplicated (9) Sepsis ICD Code: A41.9 - Sepsis, unspecified organism Brief History 61-year-old male with history of hepatic encephalopathy seen last week IN THE ER ONLY ,WITH HISTORY OF alcohol abuse,AND TOBACCO ABUSE presents to the ER today for several days history of increased weakness, dizziness, inability to get up according to . He states he was trying to get up and fell today. Denies any injuries. He denies any fevers, vomiting, diarrhea, or any other symptoms. He apparently had been on medications for THIS BUT states he ran out of meds. Modifying Factors: None Associated Signs & Symptoms: General weakness, dizziness, trouble getting up and caring for self, fall Risk Factors: Hepatic encephalopathy last week, alcohol abuse CBC/BMP: 05/29/17 0345 05/29/17 0345 Significant Findings Laboratory Tests Test 05/27/17 09:00 05/27/17 14:36 05/28/17 06:55 05/28/17 08:05 Blood Gas Base Excess 2.3 mmol/L (-2-2) -2.3 mmol/L (-2-2) Arterial Blood pH 7.51 (7.380-7.420) Arterial Blood Partial Pressure CO2 32 mmHg (38-42) Arterial Blood Partial Pressure O2 315 mmHg (61-120) 140 mmHg (61-120) Arterial Blood Oxygen Content 11.4 Vol % (12.0-20.0) Blood Gas Hemoglobin 7.8 G/DL (12.0-16.0) 8.9 G/DL (12.0-16.0) White Blood Count 15.3 TH/MM3 (4.0-11.0) Red Blood Count 2.48 MIL/MM3 (4.50-5.90) Hemoglobin 8.5 GM/DL (13.0-17.0) Hematocrit 27.2 % (39.0-51.0) Mean Corpuscular Volume 109.7 FL (80.0-100.0) Mean Corpuscular Hemoglobin 34.2 PG (27.0-34.0) Mean Corpuscular Hemoglobin Concent 31.2 % (32.0-36.0) Red Cell Distribution Width 24.0 % (11.6-17.2) Neutrophils (%) (Auto) 83.3 % (16.0-70.0) Lymphocytes (%) (Auto) 6.9 % (9.0-44.0) Neutrophils # (Auto) 12.7 TH/MM3 (1.8-7.7) Monocytes # (Auto) 1.1 TH/MM3 (0-0.9) Blood Urea Nitrogen 20 MG/DL (7-18) Creatinine 0.38 MG/DL (0.60-1.30) Total Protein 6.2 GM/DL (6.4-8.2) Albumin 3.0 GM/DL (3.4-5.0) Aspartate Amino Transf (AST/SGOT) 49 U/L (15-37) Sodium Level 152 MEQ/L (136-145) Chloride Level 119 MEQ/L (98-107) Lactic Acid Level 3.3 mmol/L (0.4-2.0) Troponin I 0.22 NG/ML (0.02-0.05) Test 05/28/17 08:50 05/28/17 12:55 05/28/17 16:22 05/28/17 22:47 Troponin I 0.25 NG/ML (0.02-0.05) 0.19 NG/ML (0.02-0.05) Test 05/29/17 01:37 05/29/17 03:45 Troponin I 0.16 NG/ML (0.02-0.05) White Blood Count 15.9 TH/MM3 (4.0-11.0) Red Blood Count 2.21 MIL/MM3 (4.50-5.90) Hemoglobin 7.5 GM/DL (13.0-17.0) Hematocrit 23.3 % (39.0-51.0) Mean Corpuscular Volume 105.7 FL (80.0-100.0) Mean Corpuscular Hemoglobin 34.1 PG (27.0-34.0) Red Cell Distribution Width 23.4 % (11.6-17.2) Platelet Count 149 TH/MM3 (150-450) Blood Urea Nitrogen 46 MG/DL (7-18) Creatinine 1.57 MG/DL (0.60-1.30) Random Glucose 119 MG/DL (74-106) Sodium Level 153 MEQ/L (136-145) Chloride Level 119 MEQ/L (98-107) Estimat Glomerular Filtration Rate 45 ML/MIN (>89) PE at Discharge awke and alert, restless anicteric tracheostomy in place no rales, no rhnchi regular rhythm PEG in place erwin in place extremities no edema- moves all spontaenously Hospital Course 61yM with h/o prior hepatic encephalopathy, etoh abuse, tobacco abuse, now admitted with weakness, fever, chills, worsening hypotension. called by hospitalist service overnight for clinical decline despite ivf resuscitation. Patient does complain of flank pain, but denies chest pain, abdominal pain. u/a +. started earlier on vanc/zosyn. has not voided. becoming worseningly agitated. unable to provide any additional information due to altered mental status. 04/28: Chart reviewed. Patient still quite agitated stating "I have to pee" patient has a Erwin catheter. Complaining of flank pain. Noted renal ultrasound negative. Currently on norepinephrine at 12 mg per minute. 04/29: Resting in bed in no acute distress. Currently on norepinephrine at 7 per minute for vasopressor support. Transfuse 2 units PRBC and 2 pack platelets overnight. Dilutional. Absolutely no signs of active bleeding. 04/30 Patient is sedated with Fentanyl and intubated. On Levophed 5 mics. Afebrile. For EGD today. 05/01 No events overnight. Sedated and intubated. On Levophed 4 mics. s/p EGD yesterday with shoed esophagitis, gastritis, food impaction in distal esophagus removed. 05/02: Afebrile. Off all vasopressors. NG tube advanced by IR yesterday. Feeding to be initiated today. Currently on fentanyl drip 05/03: Remains intubated sedated and not following commands remains on fentanyl infusion. Attempt CPAP trial if patient wakeful enough. Urine output minimal only 300 mL in 24 hours. Will give albumin and Bumex 05/04 Patient is sedated with Fentanyl and intubated. Afebrile. 05/05 Patient was self extubated last night. For possible decompressive colonoscopy today. Afebrile. 05/06 Patient is on 3L oxygen for decompressive colonoscopy today. On Precedex drip for agitation. CT abdomen/pelvis last night showed development of gaseous distention of the right and transverse colon with abrupt change in luminal dimension at the splenic flexure. There is a rectal tube in place and cannot differentiate between a focal obstruction/stricture versus decompression from the rectal tube. 05/07 Patient s/p decompressive colonoscopy last night KUB this morning showed decreased colonic distention. On 4L oxygen. 05/08 Patient was unresponsive on BIPAP this morning and was in resp distress he was subsequently intubated and placed on mechanical ventilation. CXR post intubation showed complete opacification of left hemithorax likely 2nd mucous plug 05/09 Patient is sedated with Fentanyl and intubated. Afebrile. 05/10 Patient remains sedated and intubated. Afebrile. Tolerating tube feeds 05/11: Tolerated PSV trials 3 hours today. Not tolerating tube feeding currently. KUB pending. Positive BM. Decreased urine output noted. 05/12: Lasted 1 hour on PSV trials today. Currently vomiting will be decompressed from above and below per GI today. Afebrile. Central line placed due to persistent hypotension 05/13: Permission from mother for bronchoscopy today for diagnosis left lower lobe on CAT scan of min/pelvis yesterday. Sample sent. Currently on linezolid , cefepime and Flagyl per infectious disease. 05/14: Patient remains intubated sedated, on sedation hold do not follow commands , but moving extremities. Initially intubated 04/28, self extubated 05/05, Re intubated for mucus plugging, AMS on 05/07 night. Combined vent day 14, mental status will not permit extubation. Copious yellow ETT secretions. 05/15: Gets agitated on CPAP. But intermittently follows commands. Good oxygen saturation. Chest x-ray shows improved aeration. Moderate secretions from ET tube but good cough. Will proceed with extubation. Remains full code 05/16: Patient was extubated yesterday but failed in about 1 hour due to stridor and tachypnea. Today off sedation mentation seems to be improved, tolerates CPAP with high settings but has bilateral crackles and coarse rhonchi. Family (son and daughter) starting in from [place]. Will be here tomorrow 05/17/17 and request the patient to be left intubated until they get here 05/17: Patient is more awake alert and appropriate in communicating even though on low-dose propofol and intubated. Waiting for [facility] to arrive [facility] [place] [facility]. Possible weaning to extubation tomorrow 05/18: Awake alert following command on vent. Palliative care is meeting with family today. Once decision re: goals of care are made, most likely proceed with extubation 05/19: Patient was extubated yesterday and there myself under palliative care nurse practitioner Adalgisa Ellington had a detailed discussion with the patient. After talking to the family patient decided he wants to be full code and wants a tracheostomy and PEG tube done since this is his fourth reintubation. Currently intubated sedated tracheostomy today 05/20: Status post tracheostomy yesterday 05/19/17. Based on CPAP tolerating well now. We'll attempt T piece today. Discontinue Versed use propofol as needed. Labs pending 05/21: Remains intubated sedated. Tolerated CPAP 3 hours yesterday. Remains significantly fluid positive at least 2 KG since admission. Significant anasarca. Start on Bumex infusion. Chest x-ray shows fluid overload/pulmonary edema 05/22: Excellent diuresis with Bumex gtt. 6.8L in 24 hours and wt down by 5 kg, still kg up from admission weight. Tolerating TP. Possible PEG today 05/23: Currently patient is on TPs tolerating well. Attempts to talk. Up to stretcher chair today. Urine output more than 10 L on Bumex drip. Change to scheduled Bumex and one dose of Diamox 05/24: Tolerated TP all day, CPAP at night. >5L UO in 24 hours. We'll stop scheduled Bumex now, weight is down to admission weight. Use Bumex as needed 05/25: Patient able to talk with Passy-Hina valve. BUN/cr stable. WBC starting to trend down, Solu-Medrol reduced. CCM RECONSULT NOTE: Emergency re consult for trach malfunction, with hypoxia. According to the RT report, patient was hypoxic on the floor and trach was obstructed and partially dislodged. Respiratory therapist removed the inner cannula which was obstructed and tried to place a new inner cannula but the syed on trach was broke. So respiratory therapist removed the existing perc trach and placed a new cuffed fenestrated trach (only one available on floor at that time). Passage was difficult and he was not able to pass a suction catheter and a Halicat was called and patient was emergently moved to [facility], Dr. Montes accompanied the patient. When patient was breathing spontaneously he had bilateral air entry, I called for emergent bronchoscopy. Patient had severe respiratory distress and mechanical ventilation was attempted. We could not get sufficient volume and, patient started developing significant subcutaneous emphysema involving the neck indicating new tracheostomy false passage. I disconnected the patient performed a emergency orotracheal intubation, once the tube placement was confirmed Dr. Montes pulled out the existing fenestrated tracheostomy. ET tube was further advanced and again confirmed with end-tidal CO2 monitor. Suction catheter now was easily passed and copious amounts of secretions were suctioned out. I will perform a bronchoscopy to confirm placement 05/28: patient had witnessed V. Fib arrest around 06:15am during bath. CPR immediately started (see separate documentation for details). ROSC obtained after DC cardioversion x 1. had discussion with son immediately after ROSC and son elects to make the patient DNR so that if we lose perfusing rhythm, we will let him . Otherwise continue aggressive medical therapy. 05/29: clinically improving. following commands. back down to 35% fio2. Cr uptrended to 1.5 from 0.3 overnight, now with JENNY but likely early ATN and appears euvolemic. off all vasopressors. trach replaced yesterday. clinically stable. needs daily evaluations and continued vent weaning. not stable enough for SNF. Needs LTAC level care for daily management of his hypernatremia, renal function, blood pressure. Pt Condition on Discharge: Stable Discharge Disposition: Disch to Another Hospital Discharge Instructions DIET: Follow Instructions for: On Tube Feeding Activities you can perform: Regular-No Restrictions Gabriel Alvares MD May 29, 2017 12:24
[2017-05-29] MEDS ORDERED: METR-1 PO (12:53)
[2017-05-29] MEDS ORDERED: CEFE2INJ9 IV (12:53)
[2017-05-29] MEDS ORDERED: EPIN1INJ21 SQ (12:53)
[2017-05-29] MEDS ORDERED: SOLU250I IV PUSH (12:53)
[2017-05-29] MEDS ORDERED: EPIN1INJ21 IV PUSH (12:53)
--- NOTE | 2017-05-29 13:02 | HHI.FF ---
Infusion Therapy Location of Infusion Therapy: [facility] Infusion Therapy Order (LTAC) Patient Information Appointment Date: May 29, 2017 Patient Weight 75.7 kg Diagnosis: Diagnosis Recurrent aspiration PNA Cdiff colitis (based on Pseudomembranes on colonoscopy, ? false negative PCR due to barrier cream). Coded Allergies: No Known Allergies (Verified Allergy, Unknown, 04/27/17) Uncoded Allergies: STEROIDS (Allergy, Unknown, 07/13/14) Administer Medication Cefepime 2 grams IV q 12 hours Start Treatment: May 29, 2017 Stop Treatment: Jun 05, 2017 Additional Information Additional Medications Flagyl 500 mg po (per PEG tube) every 8 hours for 14 days. Venous access: Peripheral Additional Instructions [x] Peripheral flush and dressing changes per protocol [x] Implanted port and central fur liner: * Implanted port: 10 ml Normal Saline followed by 5 ml Heparin 100 units/ml Heparin flush after each use and monthly to maintain. [] May leave port accessed during therapy. [] May leave peripheral site accessed for duration of therapy. [x] If patient has SOB or respiratory distress, check oxygen saturation. If less than 90% or clinical signs of respiratory distress, administer oxygen at 2 L/min. via nasal cannula and notify physician. [x] Anaphylaxis/Reaction orders: * Stop infusion. * Keep IV line open with saline flush. * Notify physician. * Monitor vital signs every 15 minutes until symptoms resolve. * Check Oxygen saturation; Oxygen at 2 L/min. via nasal cannula if less than 90% or clinical signs of respiratory distress. * Administer diphenhydramine (Benadryl) 25 mg IV STAT, (unless patient has received as pre-med). May repeat once, if necessary. * Solu-Cortef 250 mg IVP over 30-60 seconds, use 100 mg vials for each dissolution. * Epinephrine (1mg/1 ml) 0.3 mg subcutaneously or IVP now with any signs of respiratory distress. * Check with physician for new additional pre-med orders if patient is re- challenged or re-treated. [x] May remove PICC line when treatment complete, after confirming with Physician. [x] If the patient is admitted to the hospital, the ED, or transferred via [facility] , complete transfer form including medication reconciliation order sheet. Laboratory Tests Weekly Labs: CBC w/diff, Creatinine, LFT's (Hepatic function test) Additional Information Consult Dr.Ukonu Nicole or other ID at [facility]. Labs to be drawn each Sunday and followed by PCP and ID at [facility]. Aleja Laboy MD May 29, 2017 13:02
== END 2017-05-29 13:45 | DRG 3 ==
LOC: NEPE 09:30 → NEDA 12:27 → HIME 16:00 → N05A 05-26 01:21 → HIME 05-27 08:40 → HIMN 05-27 09:00 → HIME 05-27 09:02
PROVIDERS: ADMIT Hospitalist; ATTEND Internal Medicine
PROC: 03HY32Z Insertion of Monitoring Device into Upper Artery, Percutaneous Approach (ICD-10-PCS; 2017-04-27)
PROC: 06HM33Z Insertion of Infusion Device into Right Femoral Vein, Percutaneous Approach (ICD-10-PCS; 2017-04-27)
PROC: 5A1955Z Respiratory Ventilation, Greater than 96 Consecutive Hours (ICD-10-PCS; 2017-04-28)
PROC: 0BH18EZ Insertion of Endotracheal Airway into Trachea, Via Natural or Artificial Opening Endoscopic (ICD-10-PCS; 2017-04-28)
PROC: 02HV33Z Insertion of Infusion Device into Superior Vena Cava, Percutaneous Approach (ICD-10-PCS; 2017-04-29)
PROC: 30233R1 Transfusion of Nonautologous Platelets into Peripheral Vein, Percutaneous Approach (ICD-10-PCS; 2017-04-29)
PROC: 30233N1 Transfusion of Nonautologous Red Blood Cells into Peripheral Vein, Percutaneous Approach (ICD-10-PCS; 2017-04-29)
PROC: 0DB38ZX Excision of Lower Esophagus, Via Natural or Artificial Opening Endoscopic, Diagnostic (ICD-10-PCS; 2017-04-30)
PROC: 0DB68ZX Excision of Stomach, Via Natural or Artificial Opening Endoscopic, Diagnostic (ICD-10-PCS; 2017-04-30)
PROC: 0DC38ZZ Extirpation of Matter from Lower Esophagus, Via Natural or Artificial Opening Endoscopic (ICD-10-PCS; 2017-04-30)
PROC: 0DH67UZ Insertion of Feeding Device into Stomach, Via Natural or Artificial Opening (ICD-10-PCS; 2017-05-01)
PROC: 0D7K8ZZ Dilation of Ascending Colon, Via Natural or Artificial Opening Endoscopic (ICD-10-PCS; 2017-05-06)
PROC: 0BH17EZ Insertion of Endotracheal Airway into Trachea, Via Natural or Artificial Opening (ICD-10-PCS; 2017-05-08)
PROC: 5A1955Z Respiratory Ventilation, Greater than 96 Consecutive Hours (ICD-10-PCS; 2017-05-08)
PROC: 05HM33Z Insertion of Infusion Device into Right Internal Jugular Vein, Percutaneous Approach (ICD-10-PCS; 2017-05-12)
PROC: 0D7K8ZZ Dilation of Ascending Colon, Via Natural or Artificial Opening Endoscopic (ICD-10-PCS; 2017-05-12)
PROC: 0DBK8ZX Excision of Ascending Colon, Via Natural or Artificial Opening Endoscopic, Diagnostic (ICD-10-PCS; 2017-05-12)
PROC: 0DBH8ZX Excision of Cecum, Via Natural or Artificial Opening Endoscopic, Diagnostic (ICD-10-PCS; 2017-05-12)
PROC: 0BCB8ZZ Extirpation of Matter from Left Lower Lobe Bronchus, Via Natural or Artificial Opening Endoscopic (ICD-10-PCS; 2017-05-13)
PROC: 0B113F4 Bypass Trachea to Cutaneous with Tracheostomy Device, Percutaneous Approach (ICD-10-PCS; principal; 2017-05-19)
PROC: 0BJ08ZZ Inspection of Tracheobronchial Tree, Via Natural or Artificial Opening Endoscopic (ICD-10-PCS; 2017-05-19)
PROC: 0DH63UZ Insertion of Feeding Device into Stomach, Percutaneous Approach (ICD-10-PCS; 2017-05-23)
PROC: 0B9J8ZX Drainage of Left Lower Lung Lobe, Via Natural or Artificial Opening Endoscopic, Diagnostic (ICD-10-PCS; 2017-05-27)
PROC: 0B9F8ZX Drainage of Right Lower Lung Lobe, Via Natural or Artificial Opening Endoscopic, Diagnostic (ICD-10-PCS; 2017-05-27)
PROC: 0W9930Z Drainage of Right Pleural Cavity with Drainage Device, Percutaneous Approach (ICD-10-PCS; 2017-05-27)
PROC: 0B21XEZ Change Endotracheal Airway in Trachea, External Approach (ICD-10-PCS; 2017-05-27)
PROC: 0BW18FZ Revision of Tracheostomy Device in Trachea, Via Natural or Artificial Opening Endoscopic (ICD-10-PCS; 2017-05-28)
PROC: 0BJ08ZZ Inspection of Tracheobronchial Tree, Via Natural or Artificial Opening Endoscopic (ICD-10-PCS; 2017-05-28)
PROC: 04HY32Z Insertion of Monitoring Device into Lower Artery, Percutaneous Approach (ICD-10-PCS; 2017-05-28)
PROC: 5A2204Z Restoration of Cardiac Rhythm, Single (ICD-10-PCS; 2017-05-28)
PROC: 06HM33Z Insertion of Infusion Device into Right Femoral Vein, Percutaneous Approach (ICD-10-PCS; 2017-05-28)
DX: A41.9 Sepsis, unspecified organism (principal); N17.0 Acute kidney failure with tubular necrosis; J69.0 Pneumonitis due to inhalation of food and vomit; J93.0 Spontaneous tension pneumothorax; G93.41 Metabolic encephalopathy; R65.21 Severe sepsis with septic shock; R57.0 Cardiogenic shock; G93.1 Anoxic brain damage, not elsewhere classified; J90 Pleural effusion, not elsewhere classified; I49.01 Ventricular fibrillation; I46.9 Cardiac arrest, cause unspecified; J96.01 Acute respiratory failure with hypoxia; E44.0 Moderate protein-calorie malnutrition; K55.9 Vascular disorder of intestine, unspecified; K63.3 Ulcer of intestine; T17.890A Other foreign object in other parts of respiratory tract causing asphyxiation, initial encounter; A04.72 Enterocolitis due to Clostridium difficile, not specified as recurrent; E87.2 Acidosis; J44.1 Chronic obstructive pulmonary disease with (acute) exacerbation; N39.0 Urinary tract infection, site not specified; J95.03 Malfunction of tracheostomy stoma; E87.0 Hyperosmolality and hypernatremia; K56.7 Ileus, unspecified; E87.1 Hypo-osmolality and hyponatremia; F10.239 Alcohol dependence with withdrawal, unspecified; J98.11 Atelectasis; I24.8 Other forms of acute ischemic heart disease; D69.59 Other secondary thrombocytopenia; T18.128A Food in esophagus causing other injury, initial encounter; E87.6 Hypokalemia; Z68.22 Body mass index [BMI] 22.0-22.9, adult; K22.70 Barrett's esophagus without dysplasia; K29.70 Gastritis, unspecified, without bleeding; K44.9 Diaphragmatic hernia without obstruction or gangrene; F17.210 Nicotine dependence, cigarettes, uncomplicated; T18.198A Other foreign object in esophagus causing other injury, initial encounter; K21.0 Gastro-esophageal reflux disease with esophagitis; K31.9 Disease of stomach and duodenum, unspecified; K57.30 Diverticulosis of large intestine without perforation or abscess without bleeding; D53.9 Nutritional anemia, unspecified; N20.0 Calculus of kidney; E83.42 Hypomagnesemia; T81.82XA Emphysema (subcutaneous) resulting from a procedure, initial encounter; K70.31 Alcoholic cirrhosis of liver with ascites; K72.90 Hepatic failure, unspecified without coma; J01.90 Acute sinusitis, unspecified; E87.70 Fluid overload, unspecified; K64.4 Residual hemorrhoidal skin tags; J32.0 Chronic maxillary sinusitis; B96.20 Unspecified Escherichia coli [E. coli] as the cause of diseases classified elsewhere; Z66 Do not resuscitate
CPT/HCPCS: 31500; 31600; 31624; 32551; 36430; 36556; 36600; 43752; 70450; 71010; 71260; 74000; 74176; 74177; 76604; 76775; 76937; 80048; 80053; 80076; 80184; 80202; 80307; 81001; 82140; 82150; 82550; 82607; 82746; 82805; 83010; 83036; 83540; 83550; 83605; 83615; 83690; 83735; 83880; 83921; 84100; 84132; 84155; 84439; 84443; 84484; 85007; 85025; 85027; 85044; 85060; 85384; 85610; 85730; 86850; 86900; 86901; 86920; 87015; 87040; 87070; 87071; 87077; 87086; 87102; 87116; 87186; 87205; 87206; 87449; 87493; 87641; 87804; 88112; 88160; 88305; 88312; 89051; 92950; 93005; 93308; 93970; 94002; 94003; 94640; 94664; 94667; 96365; A7520; A7521; C1769; C9113; J0171; J0456; J0610; J0692; J0696; J1100; J1120; J1630; J1644; J1940; J2020; J2060; J2212; J2250; J2270; J2370; J2405; J2543; J2560; J2765; J2920; J2930; J2997; J3010; J3370; J3411; J3475; J3480; J7030; J7040; J7050; J7070; J7120; J7608; J7613; J7626; P9016; P9035; P9045; P9047; Q9963; Q9967